=== PATIENT | male | born 1945 | race Caucasian/White ===

== ENCOUNTER → 2017-01-16 | Outpatient (CLI) | payer MEDICARE, OTHER ==
--- NOTE | 2017-01-16 08:34 | CT ---
EXAMINATION TYPE: CT lumbar spine wo con DATE OF EXAM: 01/16/2017 7:17 AM COMPARISON: NONE HISTORY: 71-year-old male with low Back Pain TECHNIQUE: Contiguous axial scanning of the lumbar spine without IV contrast. Coronal and sagittal re constructions performed. CT DLP: 367.7 mGycm Automated exposure control for dose reduction was used. FINDINGS: Vertebral body heights are preserved and alignment is maintained. There is mild disc bulging throughout the lumbar spine At L2-L3, disc bulge contributes to a mild right neuroforaminal stenosis. At L3-L4, disc bulge contributes to a mild right greater than left neuroforaminal stenosis. At L4-L5, disc bulge contributes to a mild right greater than left neural foraminal stenosis. No significant spinal canal stenosis seen at any level. There is diffuse ectasia of the abdominal aorta and iliac arteries. Upper abdominal aorta measures up to 2.6 cm. 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 Just below, the abdominal aorta remains aneurysmal at 3. One centimeters an d ectatic at the distal abdominal aorta are 2.8 cm. Mild aneurysm right common iliac artery at 1.6 cm . Moderate apical scarring calcifications are seen throughout. Bilateral nephrolithiasis measuring 3 mm on the right and up to 5 mm on the left. Hypodense lesions a re present on both sides, measuring up to 2.8 cm right and 1.9 cm on the left, indeterminate on this noncontrast study. Renal ultrasound can further evaluate. Mild diffuse low-density thickening of the left adrenal gland suggests adrenal hyperplasia. IMPRESSION: 1. NO VERTEBRAL COMPRESSION COLLAPSE OR MALALIGNMENT. 2. MULTILEVEL MILD DEGENERATIVE DISC DISEASE WITH DISC BULGING. THIS CONTRIBUTES TO MILD RIGHT GREATE R THAN LEFT NEURAL FORAMINAL STENOSES FROM L2 THROUGH L5 LEVELS. 3. NO CANAL COMPROMISE. 4. 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 MEASUREMENTS AB OVE (AAA MEASURING UP TO 3.6 CM).
== END | disposition home or self-care (01) ==
LOC: RADCTMAIN 06:53
PROVIDERS: ATTEND Family Medicine
DX: M99.73 Connective tissue and disc stenosis of intervertebral foramina of lumbar region (principal); M51.26 Other intervertebral disc displacement, lumbar region; M51.36 Other intervertebral disc degeneration, lumbar region
CPT/HCPCS: 72131

== ENCOUNTER 2017-01-22 16:29 | Inpatient (IN) | payer MEDICARE, MEDICAID ==
[2017-01-22 17:28] LABS: Appearance,Urine Clear (Clear); Bilirubin,Urine Negative (Negative); Glucose,Urine (UA) Negative (Negative); Ketones,Urine Negative (Negative); Leukocyte Esterase,Urine Negative (Negative); Nitrite,Urine Negative (Negative); Protein,Urine Negative (Negative); Specific Gravity,Urine 1.002 (1.001-1.035); UA Billing (MACRO vs. MICRO) CHEM; Urobilinogen,Urine <2.0 mg/dL (<2.0)
--- NOTE | 2017-01-22 18:33 | ED ---
Psych HPI - General Chief Complaint: Psychiatric Symptoms Stated Complaint: Mental Health Time Seen by Provider: 01/22/17 16:52 Source: patient Mode of arrival: ambulatory - History of Present Illness Initial Comments: This is a 71-year-old male who presents emergency department for wanting to kill someone. He states that he's had these thoughts for a long time however there getting out of control. He states he is hearing voices that are telling him to hurt people's. He states he also wants a [place] and throat brick through the back window. He states he does not care that if he gets shot by the police. He states he does not have a history of anything and is not supposed be taking any medications. He states that this is all new. No other complaints. - Related Data Home Medications Medication Instructions Recorded Confirmed Ergocalciferol [Vitamin D2 1 cap PO MO 03/27/14 01/22/17 (DRISDOL)] Nitroglycerin Sl Tabs [Nitrostat] 0.4 mg SUBLINGUAL Q5M PRN 03/27/14 01/22/17 Atorvastatin [Lipitor] 80 mg PO HS 09/20/14 01/22/17 Ezetimibe [Zetia] 10 mg PO DAILY 09/20/14 01/22/17 oxyCODONE-APAP 10-325MG [Percocet 1 tab PO Q4HR PRN 09/20/14 01/22/17 10-325 mg] DULoxetine HCL [Cymbalta] 60 mg PO DAILY 01/22/17 01/22/17 Esomeprazole Magnesium [NexIUM] 40 mg PO DAILY 01/22/17 01/22/17 Ibuprofen [Motrin] 800 mg PO Q8H PRN 01/22/17 01/22/17 Levothyroxine Sodium [Synthroid] 25 mcg PO DAILY 01/22/17 01/22/17 Lisinopril 30 mg PO DAILY 01/22/17 01/22/17 Pregabalin [Lyrica] 75 mg PO BID 01/22/17 01/22/17 QUEtiapine [SEROquel] 25 mg PO HS 01/22/17 01/22/17 valACYclovir HCL [Valtrex] 1,000 mg PO Q8H 01/22/17 01/22/17 Allergies Allergy/AdvReac Type Severity Reaction Status Date / Time cefazolin Allergy Rash/Hives Verified 01/22/17 16:52 cefazolin sodium [From Ancef] Allergy Rash/Hives Verified 01/22/17 16:52 morphine AdvReac Nausea & Verified 01/22/17 16:52 Vomiting Review of Systems ROS Statement: Those systems with pertinent positive or pertinent negative responses have been documented in the HPI. ROS Other: All systems not noted in ROS Statement are negative. Past Medical History Past Medical History: Chest Pain / Angina, Hyperlipidemia, Myocardial Infarction (UT), Osteoarthritis (OA), Skin Disorder Additional Past Medical History / Comment(s): MIX2,MIGRAINES,BENIGN GROWTH RT KIDNEY, RAISED BUMPS FLORA HANDS,SKIN CA Last Myocardial Infarction Date:: AGE 30'S History of Any Multi-Drug Resistant Organisms: None Reported Past Surgical History: Heart Catheterization, Hernia Repair, Orthopedic Surgery Additional Past Surgical History / Comment(s): LAMINECTOMY & PLACEMENT OF NEUROSTIMULATOR, REPOSTION OF NEUROSTIMULATOR HARDWARE Past Anesthesia/Blood Transfusion Reactions: No Reported Reaction Past Psychological History: No Psychological Hx Reported Smoking Status: Current every day smoker Past Alcohol Use History: Occasional Past Drug Use History: Marijuana - Past Family History Father Family Medical History: Cancer Brother(s) Family Medical History: Cancer General Exam - General Exam Comments Initial Comments: Constitutional: Awake alert Appears comfortable Head: Normocephalic atraumatic Eyes: no conjunctival injection No scleral icterus EOMI Neck: No JVD Supple Heart: Regular rate rhythm normal S1-S2 no murmurs Lungs: Clear to auscultation bilaterally No wheezing No rales Abdomen: Soft nondistended nontender Extremities: Non edematous DP pulses intact Radial pulses intact Neuro: A&Ox3 No focal neurologic deficits Psych: Homicidal and intoxicated Limitations: no limitations Course Vital Signs 01/22/17 16:36 Temperature 98.1 F Pulse Rate 65 Respiratory 20 Rate Blood Pressure 176/89 O2 Sat by Pulse 94 L Oximetry Medical Decision Making - Medical Decision Making Patient was evaluated by inpatient psych and they feel that he needs hospitalization. They will sign a minute place admission orders. - Lab Data Lab Results 01/22/17 Range/Units 16:00 Urine Color Colorless Urine Appearance Clear (Clear) Urine pH 6.0 (5.0-8.0) Ur Specific [place] 1.002 (1.001-1.035) Urine Protein Negative (Negative) Urine Glucose (UA) Negative (Negative) Urine Ketones Negative (Negative) Urine Blood Negative (Negative) Urine Nitrate Negative (Negative) Urine Bilirubin Negative (Negative) Urine Urobilinogen <2.0 (<2.0) mg/dL Ur Leukocyte Esterase Negative (Negative) Urine Opiates Screen Not Detected (NotDetected) Ur Oxycodone Screen Detected H (NotDetected) Urine Methadone Screen Not Detected (NotDetected) Ur Propoxyphene Screen Not Detected (NotDetected) Ur Barbiturates Screen Not Detected (NotDetected) U Tricyclic Antidepress Not Detected (NotDetected) Ur Phencyclidine Scrn Not Detected (NotDetected) Ur Amphetamines Screen Not Detected (NotDetected) U Methamphetamines Scrn Not Detected (NotDetected) U Benzodiazepines Scrn Not Detected (NotDetected) Urine Cocaine Screen Not Detected (NotDetected) U Marijuana (THC) Screen Not Detected (NotDetected) Disposition Clinical Impression: Homicidal ideation, Suicidal ideation, Depression Disposition: ADMITTED IP TO THIS HOSP Condition: Stable
[2017-01-22] MEDS ORDERED: LORazepam 1 MG TAB PO STA (19:31)
[2017-01-22] MEDS ORDERED: oxyCODONE-APAP 5-325MG 1 EACH TAB PO STA (19:52)
[2017-01-22] MEDS ORDERED: MAGNESIUM HYDROXIDE 2,400 MG/10 ML CUP PO PRN (22:34)
[2017-01-22] MEDS ORDERED: MAG HYDROX/AL HYDROX/SIMETH 30 ML CUP PO PRN (22:34)
[2017-01-22] MEDS ORDERED: ZIPRASIDONE 20 MG VIAL IM PRN (22:34)
[2017-01-22] MEDS ORDERED: ACETAMINOPHEN TAB 325 MG TAB PO PRN (22:34)
[2017-01-22] MEDS ORDERED: LORazepam 2 MG/ML SYRINGE IM PRN (22:38)
[2017-01-22] MEDS ORDERED: LORazepam 1 MG TAB PO PRN (22:38)
[2017-01-22] MEDS ORDERED: oxyCODONE-APAP 10-325MG 1 EACH TAB PO PRN (22:39)
[2017-01-22] MEDS ORDERED: ONDANSETRON ODT 4 MG TAB PO PRN (22:43)
[2017-01-23 09:09] LABS: Basophils # (A) 0.2 k/uL (0-0.2); Basophils % (A) 1 %; CH 33.7; CHCM 33.6; Eosinophils # (A) 0.2 k/uL (0-0.7); Eosinophils % (A) 2 %; HDW 2.33; HGB 15.5 gm/dL (13.0-17.5); Luc % (Auto) 2; Lymphocytes # (A) 1.5 k/uL (1.0-4.8); Lymphocytes % (A) 14 %; MCH 33.9 pg (25.0-35.0); MCHC 33.7 g/dL (31.0-37.0); MCV 100.8 fL (80.0-100.0); Mean Platelet Volume 7.6; Monocytes # (A) 0.6 k/uL (0-1.0); Monocytes % (A) 5 %; Neutrophils # (A) 8.2 k/uL (1.3-7.7); Neutrophils % (A) 75 %; RBC 4.56 m/uL (4.30-5.90); RDW 12.6 % (11.5-15.5); WBC 10.9 k/uL (3.8-10.6); WBC (Perox) 10.98
[2017-01-23 10:47] LABS: ALT 32 U/L (21-72); AST 38 U/L (17-59); Alkaline Phosphatase 77 U/L (38-126); Anion Gap 15 mmol/L; Blood Urea Nitrogen 10 mg/dL (9-20); Calcium 10.5 mg/dL (8.4-10.2); Carbon Dioxide 24 mmol/L (22-30); Chloride 104 mmol/L (98-107); Glucose 92 mg/dL (74-99); Non-African American GFR(MDRD) >60 (>60 ml/min/1.73 sqM); Potassium 4.3 mmol/L (3.5-5.1); Sodium 143 mmol/L (137-145); Total Bilirubin 0.7 mg/dL (0.2-1.3); Total Protein 7.9 g/dL (6.3-8.2)
[2017-01-23 11:37] LABS: Vitamin B12 334 pg/mL
[2017-01-23] MEDS ORDERED: oxyCODONE-APAP 10-325MG 1 EACH TAB PO PRN (12:39)
[2017-01-23] MEDS ORDERED: NITROGLYCERIN SL TABS 0.4 MG TAB SUBLINGUAL PRN (12:39)
[2017-01-23] MEDS ORDERED: IBUPROFEN 800 MG TAB PO PRN (12:39)
[2017-01-23] MEDS ORDERED: PREGABALIN 75 MG CAP PO SCH (13:00)
[2017-01-23] MEDS ORDERED: LEVOTHYROXINE 25 MCG TAB PO SCH (13:00)
[2017-01-23] MEDS ORDERED: LISINOPRIL 10 MG TAB PO SCH (13:00)
[2017-01-23] MEDS ORDERED: PANTOPRAZOLE 40 MG TABLET PO SCH (13:00)
[2017-01-23] MEDS ORDERED: EZETIMIBE 10 MG TAB PO SCH (13:00)
[2017-01-23 13:14] VITALS: RESP 16
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
[2017-01-23 14:42] VITALS: BP 182/96; PULSE 96; TEMP 97.2; BMI 24.7
--- NOTE | 2017-01-23 16:25 | CONS ---
DATE OF CONSULTATION: 01/23/2017 REASON FOR CONSULTATION: Medical management requested by Dr. Al. CONSULTATION: This is a 71-year-old patient admitted to the psychiatric unit, being followed by Dr. June, by Dr. Al, whose chronic stable medical conditions include myocardial infarction x2, osteoarthritis, hyperlipidemia. He is a smoker. He was admitted after he felt like he was hearing voices to kill people and was then afraid the police shot him. Admitted for the same. REVIEW OF SYSTEMS: CONSTITUTIONAL: None. HEENT: None. RESPIRATORY: Occasionally short of breath. CARDIOVASCULAR: None. GASTROINTESTINAL: None. GENITOURINARY: None. MUSCULOSKELETAL: Aches and pains in the joints. DERMATOLOGIC: None. HEMATOLOGIC: None. LYMPHATICS: None. PSYCHIATRY: As above. NEUROLOGICAL: None. PAST HISTORY: 1. Hyperlipidemia. 2. MS x2. 3. Osteoarthritis. 4. Skin cancer. PAST SURGICAL HISTORY: 1. Cardiac catheterization. 2. Hernia repair. 3. Laminectomy. 4. Placement of neurostimulator and then repositioning of the same. SOCIAL HISTORY: Patient drinks 6 to 7 beers on the weekends. Smokes a pack a day. Used to work in a factory. FAMILY HISTORY: Cancer. HOME MEDICATIONS: 1. Vitamin D2, 50,000 units on Thursday. 2. Percocet 10 one tablet q.4 p.r.n. 3. Seroquel 25 mg at bedtime. 4. Lyrica 75 mg p.o. b.i.d. 5. Nitrostat 0.4 sublingually q.5 p.r.n. 6. Lisinopril 30 mg a day. 7. Synthroid 25 mcg p.o. daily. 8. Motrin 800 mg p.o. q.8 p.r.n. 9. Zetia 10 mg p.o. daily. 10. Nexium 40 mg p.o. daily. 11. Cymbalta 60 mg p.o. daily. 12. Lipitor 80 mg at bedtime. ALLERGIES: 1. CEFAZOLIN. 2. MORPHINE. PHYSICAL EXAMINATION: VITAL SIGNS: Temperature 98.1, pulse 65, respiration 20, blood pressure 176/89, pulse ox 94% on room air. GENERAL APPEARANCE: Thin build. Sitting up, comfortable. EYES: Pupils equal. Conjunctivae normal. HEENT: Oral cavity normal. NECK: JVD not raised. Mass not palpable. RESPIRATORY: Effort normal. LUNGS: Diminished breath sounds. CARDIOVASCULAR: First and second sounds normal. No edema. ABDOMEN: Soft, nontender. Liver and spleen not palpable. LYMPHATIC: No lymph node palpable in neck or axillae. PSYCHIATRY: Awake. Answering simple questions. NEUROLOGICAL: Pupils equal. Cranial nerves grossly intact. Power and sensation grossly intact. INVESTIGATIONS: White count 10.9. Potassium 4.3. BUN and creatinine are normal. ASSESSMENT: 1. Emphysema in a smoker, though symptoms are controlled. 2. Coronary artery disease with prior history of 2 myocardial infarctions. 3. Primary osteoarthritis in multiple joints. 4. Chronic nicotine dependence. Patient is a smoker. PLAN: Home medications are resumed. Psychiatric medications per Dr. Al. Patient advised against smoking, given a nicotine patch. Patient should follow up with Dr. June upon discharge. Thank you, Dr. Al.
[2017-01-23] MEDS ORDERED: ATORVASTATIN 80 MG TAB PO SCH (21:00)
--- NOTE | 2017-01-23 21:43 | DS ---
DATE OF ADMISSION: 01/22/2017 DATE OF DISCHARGE: 01/23/2017 Patient was admitted yesterday, January 22, discharged January 23. Please refer to my history and physical examination dictated today. DISCHARGE DIAGNOSES: 1. Delirium reaction, resolved. 2. Alcohol abuse disorder and dependence. 3. Misusing opium pain medication. 4. History of depression not otherwise specified. 5. Chronic pain syndrome. For brief summary of admission notes, please refer to my history and physical exam. SUMMARY OF THE HOSPITAL COURSE: The patient was admitted on a voluntary basis on January 22 for paranoia, suspicious feelings, delusion and auditory hallucinations. Patient was given Ativan IM. Today when I saw him patient was cleared, denied any auditory or visual hallucinations, denied any paranoia or suspicious feeling. He was alert, very calm; no aggressive behavior; good eye contact. Speech is spontaneous. Thought process is linear. He is reporting no homicidal or suicidal ideation, intent or plan. He does not have access to any firearms. Does not feel hopeless or helpless. No evidence of hypomania or katherin. No evidence of psychosis. Insight and judgment are fair. PLAN: Patient was discharged from the mental health unit to return back home. Patient has to follow up with his primary care physician. Patient has to seek substance abuse treatment for his alcohol use. Patient's condition at the time of the discharge is stable.
== END 2017-01-23 13:55 | disposition home or self-care (01) | DRG 885 ==
LOC: EC 16:29 → 3MHU 21:32
PROVIDERS: ADMIT Psychiatry & Neurology Psychiatry; ATTEND Psychiatry & Neurology Psychiatry
DX: F22 Delusional disorders (principal); R45.851 Suicidal ideations; J43.9 Emphysema, unspecified; F10.20 Alcohol dependence, uncomplicated; G89.4 Chronic pain syndrome; R45.850 Homicidal ideations; I25.2 Old myocardial infarction; R41.0 Disorientation, unspecified; F32.9 Major depressive disorder, single episode, unspecified; R41.89 Other symptoms and signs involving cognitive functions and awareness; I25.10 Atherosclerotic heart disease of native coronary artery without angina pectoris; L98.9 Disorder of the skin and subcutaneous tissue, unspecified; K21.9 Gastro-esophageal reflux disease without esophagitis; E03.9 Hypothyroidism, unspecified; E78.5 Hyperlipidemia, unspecified; G43.909 Migraine, unspecified, not intractable, without status migrainosus; M54.9 Dorsalgia, unspecified; M19.91 Primary osteoarthritis, unspecified site; F17.210 Nicotine dependence, cigarettes, uncomplicated; Z85.828 Personal history of other malignant neoplasm of skin; Z88.1 Allergy status to other antibiotic agents; Z88.5 Allergy status to narcotic agent; Z87.828 Personal history of other (healed) physical injury and trauma; Z79.1 Long term (current) use of non-steroidal anti-inflammatories (NSAID); Z79.891 Long term (current) use of opiate analgesic; Z79.899 Other long term (current) drug therapy; Z71.6 Tobacco abuse counseling; Z71.51 Drug abuse counseling and surveillance of drug abuser; Z81.1 Family history of alcohol abuse and dependence; Z80.9 Family history of malignant neoplasm, unspecified
CPT/HCPCS: 80053; 80306; 81003; 82075; 82607; 84443; 85025; 93005; 99285

== ENCOUNTER → 2017-04-21 | Outpatient (CLI) | payer MEDICARE, OTHER ==
[2017-04-16 14:04] VITALS: BMI 25.1
[2017-04-21 12:49] VITALS: BP 163/70; PULSE 69; RESP 18; TEMP 98.2
--- NOTE | 2017-04-21 13:32 | P.CONS ---
History of Present Illness - Reason for Consult Consult date: 04/21/17 - History of Present Illness This is the initial consultation visit for this 62 years old male the chronic history of severe low back pain with radiation to the lower extremity bilaterally, associated with numbness and tingling sensation, patient and the spinal cord stimulator implanted more than 5 years ago, and this helped his pain significantly, he did fairly well until he had traumatic injury to his low back pain which was in 2013, and then his spinal cord stimulator stopped working , and required him to have it removed, patient continued to have severe low back pain, and it was managed with the pain medication orally, he is currently on Percocet 10/325 every 4 hours when necessary, Motrin 800 mg every 8 hours when necessary, Cymbalta 60 mg daily, he denies any side effect of the medication he denies any excessive drowsiness or sleepiness, he denies any motor or sensory deficit, and his pain increased with any activities, he has no fever or night sweats, intensity of the pain is 7-9/10, Past Medical History Past Medical History: Cancer, Chest Pain / Angina, Hyperlipidemia, Myocardial Infarction (SD), Osteoarthritis (OA), Skin Disorder Additional Past Medical History / Comment(s): SD X2,MIGRAINES,BENIGN GROWTH RT KIDNEY, RAISED BUMPS FLORA HANDS,SKIN CA, pain lower spine and both legs Last Myocardial Infarction Date:: AGE 30'S History of Any Multi-Drug Resistant Organisms: None Reported Past Surgical History: Heart Catheterization, Hernia Repair, Orthopedic Surgery Additional Past Surgical History / Comment(s): LAMINECTOMY & PLACEMENT OF NEUROSTIMULATOR, REPOSTION OF NEUROSTIMULATOR HARDWARE Past Anesthesia/Blood Transfusion Reactions: No Reported Reaction Past Psychological History: Anxiety, Depression Smoking Status: Current every day smoker Past Alcohol Use History: Occasional Additional Past Alcohol Use History / Comment(s): smoker 60+ years 1 ppd. marijuana use "couple tokes/wk" Past Drug Use History: Marijuana - Past Family History Father Family Medical History: Cancer Brother(s) Family Medical History: Cancer Medications and Allergies Home Medications Medication Instructions Recorded Confirmed Type Ergocalciferol [Vitamin D2 50,000 unit PO MO 03/27/14 04/21/17 History (DRISDOL)] Nitroglycerin Sl Tabs [Nitrostat] 0.4 mg SUBLINGUAL Q5M PRN 03/27/14 04/21/17 History Atorvastatin [Lipitor] 80 mg PO HS 09/20/14 04/21/17 History Ezetimibe [Zetia] 10 mg PO DAILY 09/20/14 04/21/17 History oxyCODONE-APAP 10-325MG [Percocet 1 tab PO Q4HR PRN 09/20/14 04/21/17 History 10-325 mg] DULoxetine HCL [Cymbalta] 60 mg PO DAILY 01/22/17 04/21/17 History Esomeprazole Magnesium [NexIUM] 40 mg PO DAILY 01/22/17 04/21/17 History Ibuprofen [Motrin] 800 mg PO Q8H PRN 01/22/17 04/21/17 History Levothyroxine Sodium [Synthroid] 25 mcg PO DAILY 01/22/17 04/21/17 History Lisinopril 30 mg PO DAILY 01/22/17 04/21/17 History QUEtiapine [SEROquel] 25 mg PO HS 01/22/17 04/21/17 History Allergies Allergy/AdvReac Type Severity Reaction Status Date / Time cefazolin Allergy Rash/Hives Verified 04/21/17 12:39 cefazolin sodium [From Ancef] Allergy Rash/Hives Verified 04/21/17 12:39 morphine AdvReac Nausea & Verified 04/21/17 12:39 Vomiting Physical Exam Vitals: Vital Signs Temp Pulse Resp BP Pulse Ox 04/21/17 12:41 98.2 F 69 18 163/70 97 Social history : smoker , NO ETOH , NO Illegal drugs use Review of Systems : 1- Constitutional : no chills , no fever , no night sweats , 2- Ears : no ear discharge , no change in hearing 3-Nose, Mouth ,Throat ; no bleeding gums, no sore throat , no epistaxis , 4-Cardiovascular : Denies chest pain, , no orthopnea , no palpitation 5-Respiratory : Denies cough , no dyspnea , no hemoptysis 6-Gastrointestinal :, no change in bowel habits , no coffee- ground emesis . 7-Genitourinary : No hematuria , no discharge , no incontinence, 8-Musculoskeletal : No gait dysfunction , report low back pain , 9- Neurological : no ataxia , no tremor , no sezure , 10-Psychatric , no suicidal ideation no hallucination 11- Endocrine : no cold intolerence , no polyuria , no polydypsia , 12-Hematologic : no easy bleeding , no easy brusing , 13-Allergic / immunology : no angioedema , no wheezing ,no allergic rhinitis 14-Integumentary : no brttle nails , no change hair / nails , no foot/leg ulcers . Physical Examinations : 1-Constitutional : Cooperative , not in acute distress . 2-HEENT : nech ; supple , no Lymphadenopathy , no Thyromegaly , :eyes , no icterus, no photophobia . ENT : , normal oropharynx , no Thrush 3- Respiratory : Chest clear to auscultations Bilaterally , no wheezing . 4- Cardiovascular : regular rate and rhythem , S1 , S2 , no S3 , no S4. 5- Gastrointestinal: abdomen soft no tenderness , no organomegally . 6- Genitourinary : Defferred . 7-Integumentary : No cellulitis , no ulcers , normal skin turgor , no cyanotic . 8- neurologic : Cranial nerve II to XII intact , no focal neurological deffecit 9-psychatric : alert , oriented X 3 , appropriate affect , intact judgment and insight . 10-Lymphatic : no Lymphadenopathy. 11- musculoskeltal: Antalgic gait Lumber spine moter stegnth lower extremities ,thigh and legs 5/5 Right side , 5/5 Left side deep tendon reflexes : normal Knee Jerk , normal ankle Jerk positive lumber facet Loading Test Range of motion of the lumbar spine Flexion 30 degrees, extension 10 degrees strait leg raising test , positive at degree Fabere test positive RT and positive LT . Sever tenderness over the Sacroiliac joint on the R and L sides Thoracic spine= scar in the middle of his thoracic spine ( healed well ) positive facet loading test thoracic area Results Comments: Computed tomography scan of the lumbar spine done 01/16/2017= L2 3 disc bulging and right neuroforaminal stenosis, L3 4 disc bulging with bilateral neuroforaminal stenosis, L4 5 disc bulging and bilateral neuroforaminal stenosis Assessment and Plan Plan: Assessment and plan = -Lumbar radiculopathy , lumbar bulging disc disease and lumbar spinal stenosis -Midback pain secondary to thoracic spondylosis ( clinically ) - diagnoses, prognosis, and treatment options including but not limited to physical therapy, surgical interventions, interventional therapies and medication management including narcotics and adjuvant medication were discussed with the patient and all questions answered to the patient's satisfaction. -medication refile = patient getting prescription refill for Motrin 800 mg every 8 hours,and Percocet 10/320 far from his primary care, and he would continue the same medication and denies any side effects of the medication, patient could benefit from Lyrica 25 mg 3 times a day -procedure= patient could benefit from lumbar epidural steroid injections, procedure risk and benefits and alternatives discussed with the patient and he agreed with the procedure Time with Patient: Greater than 30
== END | disposition home or self-care (01) ==
LOC: PNWHC3 12:19
PROVIDERS: ATTEND Specialist
DX: M48.06 Spinal stenosis, lumbar region (principal); M51.16 Intervertebral disc disorders with radiculopathy, lumbar region; M47.814 Spondylosis without myelopathy or radiculopathy, thoracic region; E78.5 Hyperlipidemia, unspecified; I25.2 Old myocardial infarction; M19.90 Unspecified osteoarthritis, unspecified site; F17.200 Nicotine dependence, unspecified, uncomplicated; Z88.1 Allergy status to other antibiotic agents; Z88.5 Allergy status to narcotic agent; Z79.899 Other long term (current) drug therapy
CPT/HCPCS: 99211

== ENCOUNTER 2017-04-29 09:50 | Day surgery (SDC) | payer MEDICARE, OTHER ==
[2017-04-27 14:26] VITALS: BMI 25.1
[~2017-04-29 09:50] MED LIST: LACTATED RINGERS 1,000 ML IV SCH
[2017-04-29] MEDS ORDERED: LIDOCAINE 1% 20 ML VIAL (10MG/ML) FOR IV START INTRADERMA ONE (11:00)
[2017-04-29 11:01] VITALS: RESP 16; TEMP 97.6
[2017-04-29] MEDS ORDERED: DEXAMETHASONE SOD PHOS (MDV) 100 MG/10 ML VIAL ONE (11:07)
[2017-04-29] MEDS ORDERED: IOHEXOL 180 MG/ML 1 ML ML ONE (11:07)
[2017-04-29] MEDS ORDERED: MIDAZOLAM 2 MG/2 ML VIAL ONE (11:07)
[2017-04-29] MEDS ORDERED: fentaNYL (PF) 50 MCG/ML 2 ML AMP ONE (11:07)
--- NOTE | 2017-04-29 11:29 | P.PCN ---
Date of Procedure: 04/29/17 Preoperative Diagnosis: Postoperative Diagnosis: Procedure(s) Performed: PREOPERATIVE DIAGNOSIS: 1- Lumbar Degenerative Disc Diseases 2-Lumbar radiculopathy 3- Lumbar spinal stenosis. POSTOPERATIVE DIAGNOSIS: same as Pre op daignosis. PROCEDURE 1. Lumbar epidural steroid injection under fluoroscopic guidance at the L4-5 level. 2. Lumbar epidurogram. ANESTHESIA: Local with 1% lidocaine 3 ml and IV sedation with Versed 2 mg , and fentanyle 100 Mcg EBL: Minimal PROCEDURE INDICATION: The patient with low back pain and radiculitis symptoms unresponsive to conservative treatment. Fluoroscopy was used to optimize visualization of the needle placement and to maximize safety. PROCEDURE DESCRIPTION / TECHNIQUE: The patient was seen and identified in the preoperative area. Risks, benefits , complications including but not limited to infections ,bleeding ,allergic reaction to the medications ,nerve damage and not complete pain releife , and alternatives were discussed with the patient. The patient agreed to proceed with the procedure and signed the consent. IV was started, and vital signs were stable. Patient was taken to the OR and time out was completed. The patient was placed in the prone position on procedure table and a pillow was placed under the abdomen to reduce lumbar lordosis. The lumbosacral area was prepped and draped in the usual sterile fashion.ere closely monitored during the procedure. Conscious sedation was used during the procedure to decrease patients anxiety. Vital signs was monitered during the entire procedure. Using anterior-posterior fluoroscopy, the L4-5 interlaminar space was identified and the skin over this site was marked and then infiltrated with 1% lidocaine subcutaneously. Subsequently, a 20-gauge Tuohy epidural needle was inserted and advanced toward the epidural space using the ``Loss of resistance technique and guided by AP and lateral fluoroscopy. The correct needle position in the epidural space was verified with the injection of 2 mL of the water soluble contrast dye Omnipaque 180 contrast and observing an excellent epidurogram with the epidural spread of the dye, after negative aspiration for blood and CSF and in the absence of paresthesias. Again after negative aspiration, a 6 ml mixture containing 20 mg of Dexamethasone and 2 ml of preservative free Normal Saline, and 2 ml of preservative free lidocaine 1% solution was injected and a washout of epidurogram was seen. Needle was withdrawn intact, skin was cleansed, and bandages were applied. COMPLICATIONS: None DISPOSITION / PLANS: The patient was placed in a supine position and transferred to the recovery area in a stable condition for observation. There was no evidence of lower extremity motor or sensory deficit after the procedure. Patient was discharged from the recovery room after meeting discharge criteria. Home discharge instructions were given to the patient by the staff. The patient was reexamined prior to discharge. The patient will schedule a follow up in the clinic in 2-4 weeks. Implants: Indications for Procedure: Operative Findings: Description of Procedure:
[2017-04-29] MEDS ORDERED: IV FLUID CONTINUATION 1,000 ML IV ONE (11:33)
[2017-04-29 11:50] VITALS: BP 184/84; PULSE 60
--- NOTE | 2017-04-29 11:54 | FL ---
EXAMINATION TYPE: FL guided pain mgmt statistic DATE OF EXAM: 04/29/2017 HISTORY: Pain 1sec fluoro time, 1 image scanned.
== END 2017-04-29 12:03 | disposition home or self-care (01) ==
LOC: ORPAIN 09:50
PROVIDERS: ATTEND Specialist
DX: M51.16 Intervertebral disc disorders with radiculopathy, lumbar region (principal); M48.06 Spinal stenosis, lumbar region; M47.814 Spondylosis without myelopathy or radiculopathy, thoracic region; E78.5 Hyperlipidemia, unspecified; M19.90 Unspecified osteoarthritis, unspecified site; F41.9 Anxiety disorder, unspecified; F32.9 Major depressive disorder, single episode, unspecified; I25.2 Old myocardial infarction; F17.200 Nicotine dependence, unspecified, uncomplicated; Z88.1 Allergy status to other antibiotic agents; Z88.5 Allergy status to narcotic agent; Z79.899 Other long term (current) drug therapy; Z85.828 Personal history of other malignant neoplasm of skin; Z80.9 Family history of malignant neoplasm, unspecified
CPT/HCPCS: 62323; 99152; J2250; Q9965; J3010; J1100

== ENCOUNTER 2017-06-03 06:08 | Day surgery (SDC) | payer MEDICARE, OTHER ==
[2017-05-29 13:05] VITALS: BMI 25.1
[2017-06-03 07:22] VITALS: TEMP 98
[2017-06-03] MEDS ORDERED: LACTATED RINGERS 1,000 ML IV ONE (07:33)
[2017-06-03] MEDS ORDERED: LIDOCAINE 1% 20 ML VIAL (10MG/ML) FOR IV START INTRADERMA ONE (07:33)
[2017-06-03] MEDS ORDERED: LACTATED RINGERS 1,000 ML IV SCH (07:45)
--- NOTE | 2017-06-03 08:03 | P.PCN ---
Date of Procedure: 06/03/17 Preoperative Diagnosis: Postoperative Diagnosis: Procedure(s) Performed: Implants: Surgeon: Shyam Ayala Pathology: none sent Condition: stable Disposition: PACU Indications for Procedure: Operative Findings: Description of Procedure: PREOPERATIVE DIAGNOSIS: 1-Lumbar radiculitis. POSTOPERATIVE DIAGNOSIS: 1-Lumbar radiculitis. PROCEDURE 1. Lumbar epidural steroid injection under fluoroscopic guidance at the L4-L5 level. 2. Lumbar epidurogram. ANESTHESIA: Local with 1% lidocaine; IV sedation with Versed/fentanyl. EBL: Minimal PROCEDURE INDICATION: The patient with low back pain and radiculitis symptoms unresponsive to conservative treatment. Fluoroscopy was used to optimize visualization of the needle placement and to maximize safety. Excellent relief from first LESI (still has some relief from that procedure). No use of blood thinners. PROCEDURE DESCRIPTION / TECHNIQUE: The patient was seen and identified in the preoperative area. Risks, benefits, complications, and alternatives were discussed with the patient, including but not limited to bleeding, infection, nerve damage, allergic reactions to medications, and incomplete pain relief. The patient agreed to proceed with the procedure and signed the consent after all questions were answered. IV was started, and vital signs were stable. Patient was taken to the OR and time out was completed to confirm patient position, procedure, laterality of pain, and allergies. The patient was placed in the prone position on procedure table and a pillow was placed under the abdomen to reduce lumbar lordosis. The lumbosacral area was prepped and draped in the usual sterile fashion. Critical pause was taken. Vital signs were closely monitored during the procedure. Conscious sedation was used during the procedure to decrease patients anxiety. Using anterior-posterior fluoroscopy, the L4-L5 interlaminar space was identified and the skin over this site was marked and then infiltrated with 1% lidocaine subcutaneously in a right paramedian fashion. Subsequently, a 20- gauge 3.5-inch Tuohy epidural needle was inserted and advanced toward the epidural space using the Loss of resistance technique and guided by AP and lateral fluoroscopy. The correct needle position in the epidural space was verified with the injection of 2 mL of the water soluble contrast dye Omnipaque 300 contrast and observing an excellent epidurogram with the epidural spread of the dye, after negative aspiration for blood and CSF and in the absence of paresthesias. Again after negative aspiration, a 8 ml mixture containing 20 mg of PF Decadron and 5 ml of preservative free Normal Saline, and 2 ml of preservative free lidocaine 1% solution was injected and a washout of epidurogram was seen. Needle was withdrawn intact, skin was cleansed, and bandages were applied. COMPLICATIONS: None COMMENTS: DISPOSITION / PLANS: The patient was placed in a supine position and transferred to the recovery area in a stable condition for observation. There was no evidence of lower extremity motor or sensory deficit after the procedure. Patient was discharged from the recovery room after meeting discharge criteria. Home discharge instructions were given to the patient by the staff. The patient was reexamined prior to discharge and there were no issues. The patient will schedule a follow up in the clinic in 2-4 weeks.
[2017-06-03 08:18] VITALS: RESP 18
--- NOTE | 2017-06-03 08:50 | FL ---
EXAMINATION TYPE: FL guided pain mgmt statistic DATE OF EXAM: 06/03/2017 FLUOROSCOPY Fluoroscopy time of 5 seconds was used during lumbar epidural steroid injection. 3 image/s document/ s the procedure.
[2017-06-03] MEDS ORDERED: IV FLUID CONTINUATION 1,000 ML IV ONE (08:52)
[2017-06-03 08:58] VITALS: BP 160/88; PULSE 60
== END 2017-06-03 08:55 | disposition home or self-care (01) ==
LOC: ORPAIN 06:08
PROVIDERS: ATTEND Anesthesiology
DX: M54.16 Radiculopathy, lumbar region (principal); I10 Essential (primary) hypertension; E78.5 Hyperlipidemia, unspecified; K21.9 Gastro-esophageal reflux disease without esophagitis; Z79.891 Long term (current) use of opiate analgesic; Z79.899 Other long term (current) drug therapy; Z88.1 Allergy status to other antibiotic agents; Z88.5 Allergy status to narcotic agent
CPT/HCPCS: 62323; J2250; J1100; Q9965; J3010

== ENCOUNTER 2017-07-06 05:00 | Emergency (ER) | payer MEDICARE, OTHER ==
[2017-07-06 05:56] LABS: Basophils # (A) 0.1 k/uL (0-0.2); Basophils % (A) 1 %; CH 35.3; CHCM 35.2; Eosinophils # (A) 0.4 k/uL (0-0.7); Eosinophils % (A) 6 %; HCT 40.1 % (39.0-53.0); HDW 2.26; HGB 13.6 gm/dL (13.0-17.5); Luc # (Auto) 0.12; Luc % (Auto) 2; Lymphocytes # (A) 1.4 k/uL (1.0-4.8); Lymphocytes % (A) 21 %; MCH 34.3 pg (25.0-35.0); MCV 100.8 fL (80.0-100.0); Mean Platelet Volume 7.9; Monocytes # (A) 0.5 k/uL (0-1.0); Monocytes % (A) 8 %; Neutrophils % (A) 62 %; RBC 3.98 m/uL (4.30-5.90); RDW 13.2 % (11.5-15.5); WBC 6.5 k/uL (3.8-10.6)
[2017-07-06 06:08] LABS: ALT 35 U/L (21-72); AST 57 U/L (17-59); Alkaline Phosphatase 42 U/L (38-126); Amylase 65 U/L (30-110); Anion Gap 11 mmol/L; Blood Urea Nitrogen 7 mg/dL (9-20); Calcium 8.7 mg/dL (8.4-10.2); Carbon Dioxide 18 mmol/L (22-30); Chloride 103 mmol/L (98-107); Glucose 82 mg/dL (74-99); Magnesium 1.4 mg/dL (1.6-2.3); Non-African American GFR(MDRD) >60 (>60 ml/min/1.73 sqM); Sodium 132 mmol/L (137-145); Total Bilirubin 0.6 mg/dL (0.2-1.3); Total Protein 6.2 g/dL (6.3-8.2)
[2017-07-06 06:09] LABS: Partial Thromboplastin Time 23.9 sec (22.0-30.0)
[2017-07-06 06:10] LABS: Potassium 4.5 mmol/L (3.5-5.1)
[2017-07-06 06:31] LABS: Troponin I 0.017 ng/mL (0.000-0.034)
[2017-07-06 06:32] LABS: Creatine Kinase MB 8.6 ng/mL (0.0-2.4)
--- NOTE | 2017-07-06 06:36 | XR ---
EXAM: XR Chest, 2 Views CLINICAL HISTORY: Chest pain TECHNIQUE: Frontal and lateral views of the chest. COMPARISON: 11/08/2014 FINDINGS: Lungs: Bibasilar atelectasis and/infiltrates are noted. Background of emphysematous changes again not excluded. Pleural space: Unremarkable. No pneumothorax. Heart: Unremarkable. No cardiomegaly. Mediastinum: Unremarkable. Bones/joints: Unremarkable. IMPRESSION: Bibasilar atelectasis and/infiltrates. Clinical correlation recommended.
--- NOTE | 2017-07-06 07:29 | ED ---
Back Pain HPI - General Chief Complaint: Back Pain/Injury Stated Complaint: chest pain Time Seen by Provider: 07/06/17 05:15 Source: EMS Limitations: no limitations - History of Present Illness Initial Comments: This patient is a 71-year-old man who presents to be evaluated for left sided back pain. When asked to point he indicates the left latissimus muscle at the posterior axillary line. He indicates the pain is aching, moderate but becomes severe when he presses on it. The pain is also worse if he moves his left arm. He has not noted any relieving factors. There were no associated symptoms. He does not recall a specific trauma but indicates it may have come on after turning. MD Complaint: back pain, back injury -: hour(s) Similar Symptoms Previously: No Place: home Radiation: none Severity: severe Quality: aching Consistency: constant Improves With: none Worsens With: movement Context: turning/twisting Associated Symptoms: denies other symptoms - Related Data Home Medications Medication Instructions Recorded Confirmed Nitroglycerin Sl Tabs [Nitrostat] 0.4 mg SUBLINGUAL Q5M PRN 03/27/14 07/06/17 Atorvastatin [Lipitor] 80 mg PO HS 09/20/14 07/06/17 Ezetimibe [Zetia] 10 mg PO DAILY 09/20/14 07/06/17 DULoxetine HCL [Cymbalta] 60 mg PO DAILY 01/22/17 07/06/17 Esomeprazole Magnesium [NexIUM] 40 mg PO DAILY 01/22/17 07/06/17 Levothyroxine Sodium [Synthroid] 25 mcg PO DAILY 01/22/17 07/06/17 Lisinopril 30 mg PO DAILY 01/22/17 07/06/17 Loratadine [Claritin] 10 mg PO DAILY 07/06/17 07/06/17 valACYclovir [Valtrex] 500 mg PO DAILY PRN 07/06/17 07/06/17 Allergies Allergy/AdvReac Type Severity Reaction Status Date / Time cefazolin Allergy Rash/Hives Verified 07/06/17 10:23 cefazolin sodium [From Ancef] Allergy Rash/Hives Verified 07/06/17 10:23 morphine AdvReac Nausea & Verified 07/06/17 10:23 Vomiting Review of Systems ROS Statement: Those systems with pertinent positive or pertinent negative responses have been documented in the HPI. ROS Other: All systems not noted in ROS Statement are negative. Constitutional: Denies: fever, chills, weakness Respiratory: Denies: cough, dyspnea Cardiovascular: Denies: chest pain, palpitations, dyspnea on exertion, syncope Gastrointestinal: Denies: abdominal pain, nausea, vomiting Genitourinary: Denies: dysuria Musculoskeletal: Reports: back pain Skin: Denies: rash Neurological: Denies: headache, weakness, numbness Past Medical History Past Medical History: Cancer, Chest Pain / Angina, Hyperlipidemia, Myocardial Infarction (CO), Osteoarthritis (OA) Additional Past Medical History / Comment(s): CO X2,MIGRAINES,BENIGN GROWTH RT KIDNEY, SKIN CA, pain lower spine and both legs Last Myocardial Infarction Date:: AGE 30'S History of Any Multi-Drug Resistant Organisms: None Reported Past Surgical History: Heart Catheterization, Hernia Repair, Orthopedic Surgery Additional Past Surgical History / Comment(s): LAMINECTOMY & PLACEMENT OF NEUROSTIMULATOR, REPOSITION OF NEUROSTIMULATOR HARDWARE- NEUROSTIMULATOR REMOVED Past Anesthesia/Blood Transfusion Reactions: No Reported Reaction Past Psychological History: Anxiety, Depression Smoking Status: Current every day smoker Past Alcohol Use History: Occasional Past Drug Use History: None Reported - Past Family History Father Family Medical History: Cancer Brother(s) Family Medical History: Cancer General Exam Limitations: no limitations General appearance: alert, in no apparent distress Head exam: Present: atraumatic, normocephalic Eye exam: Present: normal appearance. Absent: scleral icterus, conjunctival injection Neck exam: Present: normal inspection, full ROM Respiratory exam: Present: normal lung sounds bilaterally. Absent: respiratory distress, wheezes, rales, rhonchi, stridor Cardiovascular Exam: Present: regular rate, normal rhythm, normal heart sounds. Absent: systolic murmur, diastolic murmur, rubs, gallop GI/Abdominal exam: Present: soft. Absent: tenderness, guarding, rebound Extremities exam: Present: normal inspection, normal capillary refill. Absent: pedal edema, calf tenderness Back exam: Present: normal inspection, tenderness (There is tenderness to palpation of the left latissimus muscle. This does reproduce the patient's pain. No physical signs suggestive of infection.). Absent: CVA tenderness (R) , CVA tenderness (L) Neurological exam: Present: alert. Absent: motor sensory deficit Skin exam: Present: warm, dry, intact, normal color. Absent: rash Course Vital Signs 07/06/17 07/06/17 07/06/17 05:01 06:24 07:50 Temperature 98.2 F 98.2 F 97.5 F L Pulse Rate 71 54 L 57 L Respiratory 20 20 20 Rate Blood Pressure 126/66 163/82 160/76 O2 Sat by Pulse 94 L 97 97 Oximetry 07/06/17 08:23 Temperature 97.5 F L Pulse Rate 65 Respiratory 18 Rate Blood Pressure 160/76 O2 Sat by Pulse 98 Oximetry Medical Decision Making - Medical Decision Making After thorough discussion of the indications, the risks and benefits of performing CT angiogram, patient declines. He states he'll return should he develop any destiny chest pain, dyspnea, cough or other chest symptoms. The patient deftly has marked tenderness of the left latissimus dorsi along the posterior axillary line. - Lab Data Result diagrams: 07/06/17 05:40 07/06/17 05:40 Lab Results 07/06/17 07/06/17 07/06/17 Range/Units 05:40 05:40 05:40 WBC 6.5 (3.8-10.6) k/uL RBC 3.98 L (4.30-5.90) m/uL Hgb 13.6 (13.0-17.5) gm/dL Hct 40.1 (39.0-53.0) % MCV 100.8 H (80.0-100.0) fL MCH 34.3 (25.0-35.0) pg MCHC 34.0 (31.0-37.0) g/dL RDW 13.2 (11.5-15.5) % Plt Count 228 (150-450) k/uL Neutrophils % 62 % Lymphocytes % 21 % Monocytes % 8 % Eosinophils % 6 % Basophils % 1 % Neutrophils # 4.0 (1.3-7.7) k/uL Lymphocytes # 1.4 (1.0-4.8) k/uL Monocytes # 0.5 (0-1.0) k/uL Eosinophils # 0.4 (0-0.7) k/uL Basophils # 0.1 (0-0.2) k/uL PT (9.0-12.0) sec INR (<1.2) APTT (22.0-30.0) sec D-Dimer (<0.60) mg/L FEU Sodium 132 L (137-145) mmol/L Potassium 4.5 (3.5-5.1) mmol/L Chloride 103 (98-107) mmol/L Carbon Dioxide 18 L (22-30) mmol/L Anion Gap 11 mmol/L BUN 7 L (9-20) mg/dL Creatinine 0.60 L (0.66-1.25) mg/dL Est GFR (MDRD) Af Amer >60 (>60 ml/min/1.73 sqM) Est GFR (MDRD) Non-Af >60 (>60 ml/min/1.73 sqM) Glucose 82 (74-99) mg/dL Calcium 8.7 (8.4-10.2) mg/dL Magnesium 1.4 L (1.6-2.3) mg/dL Total Bilirubin 0.6 (0.2-1.3) mg/dL AST 57 (17-59) U/L ALT 35 (21-72) U/L Alkaline Phosphatase 42 (38-126) U/L Total Creatine Kinase 759 H (55-170) U/L CK-MB (CK-2) 8.6 H* (0.0-2.4) ng/mL CK-MB (CK-2) Rel Index 1.1 Troponin I 0.017 (0.000-0.034) ng/mL Total Protein 6.2 L (6.3-8.2) g/dL Albumin 3.7 (3.5-5.0) g/dL Amylase 65 (30-110) U/L Lipase 151 (23-300) U/L 07/06/17 Range/Units 05:40 WBC (3.8-10.6) k/uL RBC (4.30-5.90) m/uL Hgb (13.0-17.5) gm/dL Hct (39.0-53.0) % MCV (80.0-100.0) fL MCH (25.0-35.0) pg MCHC (31.0-37.0) g/dL RDW (11.5-15.5) % Plt Count (150-450) k/uL Neutrophils % % Lymphocytes % % Monocytes % % Eosinophils % % Basophils % % Neutrophils # (1.3-7.7) k/uL Lymphocytes # (1.0-4.8) k/uL Monocytes # (0-1.0) k/uL Eosinophils # (0-0.7) k/uL Basophils # (0-0.2) k/uL PT 10.0 (9.0-12.0) sec INR 1.0 (<1.2) APTT 23.9 (22.0-30.0) sec D-Dimer 0.78 H (<0.60) mg/L FEU Sodium (137-145) mmol/L Potassium (3.5-5.1) mmol/L Chloride (98-107) mmol/L Carbon Dioxide (22-30) mmol/L Anion Gap mmol/L BUN (9-20) mg/dL Creatinine (0.66-1.25) mg/dL Est GFR (MDRD) Af Amer (>60 ml/min/1.73 sqM) Est GFR (MDRD) Non-Af (>60 ml/min/1.73 sqM) Glucose (74-99) mg/dL Calcium (8.4-10.2) mg/dL Magnesium (1.6-2.3) mg/dL Total Bilirubin (0.2-1.3) mg/dL AST (17-59) U/L ALT (21-72) U/L Alkaline Phosphatase (38-126) U/L Total Creatine Kinase (55-170) U/L CK-MB (CK-2) (0.0-2.4) ng/mL CK-MB (CK-2) Rel Index Troponin I (0.000-0.034) ng/mL Total Protein (6.3-8.2) g/dL Albumin (3.5-5.0) g/dL Amylase (30-110) U/L Lipase (23-300) U/L - EKG Data -: EKG Interpreted by Co EKG shows normal: sinus rhythm, axis (Normal), intervals (AR interval is 244 ms , consistent with first-degree AV block), QRS complexes (Old septal infarct.), ST-T waves (Normal) Disposition Clinical Impression: Muscle strain Disposition: HOME SELF-CARE Condition: Fair Instructions: Muscle Strain (ED) Referrals: Mario June DO [Primary Care Provider] - 1-2 days
[2017-07-06 07:51] VITALS: BP 160/76; TEMP 97.5
[2017-07-06] MEDS ORDERED: RX INFO: IV CONTRAST WAS GIVEN 1 EACH MISC MISCELLANE PRN (08:01)
[2017-07-06 08:26] VITALS: PULSE 65; RESP 18
== END 2017-07-06 08:23 | disposition home or self-care (01) ==
LOC: EC 05:00
DX: S29.012A Strain of muscle and tendon of back wall of thorax, initial encounter (principal); E78.5 Hyperlipidemia, unspecified; E07.9 Disorder of thyroid, unspecified; F32.9 Major depressive disorder, single episode, unspecified; F41.9 Anxiety disorder, unspecified; I25.2 Old myocardial infarction; F17.200 Nicotine dependence, unspecified, uncomplicated; Z85.828 Personal history of other malignant neoplasm of skin; Z98.890 Other specified postprocedural states; Z79.899 Other long term (current) drug therapy; Z88.1 Allergy status to other antibiotic agents; Z88.5 Allergy status to narcotic agent; X50.1XXA Overexertion from prolonged static or awkward postures, initial encounter
CPT/HCPCS: 36415; 71020; 80053; 82150; 82550; 82553; 83690; 83735; 84484; 85025; 85379; 85610; 85730; 93005; 99284

== ENCOUNTER → 2017-07-06 | Outpatient (CLI) | payer MEDICARE, OTHER ==
[2017-07-06 10:31] VITALS: BP 153/86; PULSE 77; RESP 16; TEMP 99.1
--- NOTE | 2017-07-06 10:46 | P.PN ---
Progress Note - Text This 71-year-old gentleman with lower back pain with radiation to both lower extremities to the feet with numbness in the feet. 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 He did have good response to lumbar epidural steroid injection previously and to Lyrica 25 mg 3 times a day. However the patient started to have suicidal thoughts and he had to stop using Lyrica even though it was giving him excellent relief of his pain. The patient tried the Neurontin before with no good response. The patient fell on his left side recently and went to the ER this morning and he had few x-rays which showed no fractures were he does feel tenderness and pain in the left side of his chest wall . The patient used to have a spinal cord stimulator which was taken out a few years after placement for lack of effect at that point. Neuro exam of the lower extremities showed normal and symmetrical deep tendon reflexes. Decreased muscle strength to 4 out of 5 for knee flexion and extension hip flexion and hip adduction and abduction however his ankle flexion and extension strength is 5 out of 5 bilaterally and symmetrically . Straight leg raising test negative bilaterally. this point and since the patient had significant relief of his pain after the previous lumbar epidural steroid injection I will schedule him to have the third lumbar epidural steroid injection in this series. Patient is to continue using Percocet that he gets from his primary care physician.
== END | disposition home or self-care (01) ==
LOC: PNWHC3 10:09
PROVIDERS: ATTEND Anesthesiology
DX: M99.73 Connective tissue and disc stenosis of intervertebral foramina of lumbar region (principal); M51.26 Other intervertebral disc displacement, lumbar region; M51.27 Other intervertebral disc displacement, lumbosacral region
CPT/HCPCS: 99211

== ENCOUNTER 2017-07-16 12:20 | Day surgery (SDC) | payer MEDICARE, OTHER ==
[2017-07-15 14:49] VITALS: BMI 23.6
[~2017-07-16 12:20] MED LIST changes: +LIDOCAINE 1% 20 ML VIAL (10MG/ML) FOR IV START INTRADERMA PRN
[2017-07-16 12:55] VITALS: TEMP 98
[2017-07-16] MEDS ORDERED: fentaNYL (PF) 50 MCG/ML 2 ML AMP IV ONE (12:55)
[2017-07-16] MEDS ORDERED: PROPOFOL 10 MG/ML 20 ML VIAL IV ONE (14:00)
[2017-07-16] MEDS ORDERED: LIDOCAINE 1% INJ 10MG/ML (20 ML MDV) ONE (14:00)
--- NOTE | 2017-07-16 14:55 | P.PCN ---
Date of Procedure: 07/16/17 Preoperative Diagnosis: Postoperative Diagnosis: Procedure(s) Performed: Procedures: 1. Esophagogastroduodenoscopy and biopsy. 2. Colonoscopy and biopsy. Preoperative diagnosis: Abdominal pain and diarrhea. Postoperative diagnosis: 1. Sliding hiatal hernia with no obvious esophagitis or complicated reflux disease. 2. Mild gastritis and duodenitis. 3. Mild sigmoid diverticulosis. 4. Multiple biopsies obtained from the duodenum, antrum , esophagus and right colon. Preparation HalfLytely prep. Sedation was provided by anesthesia. Brief clinical history: The patient is a 72-year-old male who was evaluated in the office earlier this month regarding abdominal pains and diarrhea that he has been experiencing for the last 4 months with intermittent rectal bleeding. The patient was averaging 10 bowel movement daily urgent and loose and he reported waking up at night with diarrhea. He also complains of nausea and abdominal cramps. This evaluation is to rule out inflammatory bowel disease, celiac disease or other pathology. Procedure: With the patient on his left lateral decubitus position and after informed consent and adequate sedation, I passed the Olympus-GIF 160 video upper endoscope through the cricopharyngeus down the esophagus. GE junction was around 36 cm from the incisors and there was a sliding hiatal hernia measuring around 2 cm. The esophagus did not show any obvious erosions, ulcers , strictures or Marsh's esophagus. The endoscope was then passed into the stomach which was insufflated with air and inspected in detail including the retroflex view in the cardia. Finally, the endoscope was passed to the pylorus into the duodenum. The stomach showed minimal mottling and erythema in the antrum consistent with mild antral gastritis but no ulcers or erosions. Pyloric channel did not show any ulcers. Duodenal bulb, post bulbar area and descending duodenum showed some erythema but no ulcers, erosions or bleeding. I obtained multiple biopsies from the duodenum, antrum and esophagus then the endoscope was withdrawn and I proceeded to perform the colonoscopy. Perianal area did not show any fissures or fistulas. There were no masses felt on digital rectal examination. The Olympus CFQ 160L video colonoscope was then inserted in the rectum in the usual fashion and advanced to the cecum. I could not intubate the ileocecal valve, to examine the terminal ileum and to obtain biopsies, despite various attempts. The colon showed minimal diverticulosis in the distal sigmoid with no evidence of acute diverticulitis or strictures. The mucosa appeared healthy with no evidence of colitis. No polyps or tumors were seen. I retroflexed the endoscope in the rectum before the endoscope was withdrawn. There were few telangiectatic vessels limited to the area close to the anorectal junction that were not bleeding. The patient tolerated the procedure well. Plan: The patient was reassured. Will await biopsy results. He will follow up with you as planned later this month and he will be following in our office early next month. We would keep you updated on his progress. Implants: Indications for Procedure: Operative Findings: Description of Procedure:
[2017-07-16 15:12] VITALS: BP 167/85; PULSE 54; RESP 18
== END 2017-07-16 15:29 | disposition home or self-care (01) ==
LOC: ORWHC2ENDO 12:20
DX: K29.50 Unspecified chronic gastritis without bleeding (principal); K20.9 Esophagitis, unspecified; K44.9 Diaphragmatic hernia without obstruction or gangrene; K29.80 Duodenitis without bleeding; K57.30 Diverticulosis of large intestine without perforation or abscess without bleeding; Z87.19 Personal history of other diseases of the digestive system; I10 Essential (primary) hypertension; E78.5 Hyperlipidemia, unspecified; M19.90 Unspecified osteoarthritis, unspecified site; I25.10 Atherosclerotic heart disease of native coronary artery without angina pectoris; F39 Unspecified mood [affective] disorder; I25.2 Old myocardial infarction; Z79.891 Long term (current) use of opiate analgesic; Z79.899 Other long term (current) drug therapy; Z88.1 Allergy status to other antibiotic agents; Z88.5 Allergy status to narcotic agent; Z72.0 Tobacco use
CPT/HCPCS: 88305; 88342; 45380; 43239; J2001; J3010; J2704

== ENCOUNTER → 2017-07-30 | Outpatient (CLI) | payer MEDICARE, OTHER ==
[2017-07-30 08:29] LABS: Blood Urea Nitrogen 9 mg/dL (9-20); Non-African American GFR(MDRD) >60 (>60 ml/min/1.73 sqM)
--- NOTE | 2017-07-30 09:26 | CT ---
EXAMINATION TYPE: CT abdomen pelvis wo/w con DATE OF EXAM: 07/30/2017 COMPARISON: CT abdomen April 24, 2016 HISTORY: Unspecified abdominal pain (R 10.9) per order CT DLP: 789.10 mGycm, Automated Exposure Control for Dose Reduction was Utilized. CONTRAST: CT scan of the abdomen and pelvis is performed with oral and without and with IV Contrast, patient in jected with 100 ml mL of Omnipaque 300. FINDINGS: LUNG BASES: There are some scattered areas of linear scarring and/or atelectasis in both bases. LIVER/GB: No significant abnormality is appreciated. PANCREAS: No significant abnormality is seen. SPLEEN: No significant abnormality is seen. ADRENALS: There is persistent low dense nodular thickening to both adrenal glands suggestive of benig n lipid rich hyperplasia. KIDNEYS: Central calcifications in both kidneys are favored vascular. There are a few simple appearin g cysts scattered throughout the upper pole level of left kidney. Dominant partially exophytic low de nse lesion posterior lateral right kidney has Hounsfield units between 10 and 20 with possible fat al david the posterior periphery measuring 2.5 cm on series 9 image 26, suspect simple cyst with adjacent perinephric fat or possibly angiomyolipoma, either way benign etiology. Scattered pelvic phleboliths are seen. BOWEL: Stomach is poorly contrast opacified and thus suboptimally evaluated. There is no suspicious s mall or large bowel dilatation as oral contrast reaches level of rectum. PROSTATE/SEMINAL VESICLES: Prostate gland is felt upper limits of normal in size. LYMPH NODES: No greater than 1cm abdominal or pelvic lymph nodes are appreciated. OSSEOUS STRUCTURES: No significant abnormality is seen. OTHER: There is fairly moderate mixed plaque in ectatic and aneurysmal abdominal aorta redemonstrated . Aorta measures up to 3.4 cm transversely on axial image 28 stable from prior. IMPRESSION: 1. 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 No suspicious new nodularity, enhancement, or thickened septa identified to suggest malignant etiology. Consider persistent annual surveillance. 2. Stable ectasia, atherosclerotic change, and aneurysmal change of the abdominal aorta as detailed a christian measuring up to 3.4 cm on current study.
== END | disposition home or self-care (01) ==
LOC: RADCTMAIN 07:14
PROVIDERS: ATTEND Family Medicine
DX: N28.89 Other specified disorders of kidney and ureter (principal); I71.4 Abdominal aortic aneurysm, without rupture; I70.0 Atherosclerosis of aorta
CPT/HCPCS: 82565; 84520; 74178; 36415; Q9967

== ENCOUNTER → 2018-06-10 | Outpatient (CLI) | payer MEDICARE, OTHER ==
[2018-06-10 14:39] VITALS: BP 167/67; RESP 16
--- NOTE | 2018-06-10 15:07 | P.PAINPG ---
Subjective Progress Note Date: 06/10/18 This is follow-up visit for this patient with a history of severe and chronic low back pain secondary to lumbar bulging disc disease, lumbar radiculopathy, lumbar spinal stenosis We have done an interventional pain procedure lumbar epidural steroid injection 3 done ,one year ago, he did fairly well until recently she reported that he had increase of his low back pain with radiation to the lower extremity associated with numbness and tingling sensation, if she'll occasionally his lower extremities giving out on him, and he lose control of his lower extremities, he is able to ambulate without difficulty, but he had pain that is interfering with his quality of life, he denies any fever or night sweats. Denies any change in the bowel movement or urination, Objective - Vital Signs Vital signs: Vital Signs Temp Pulse Resp 16 06/10/18 14:22 BP 167/67 06/10/18 14:22 Pulse Ox 96 06/10/18 14:22 Intake & Output 06/09/18 06/10/18 06/10/18 18:59 06:59 18:59 Weight 63.503 kg - Exam Physical Examinations : 1-Constitutiona : Cooperative , not in acute distress . 2-HEENT : nech ; supple , no Lymphadenopathy , normal thyroid size . eyes : no ptosis , no icterus , no photophobia . ENT : normal of hearing , normal oropharynx , no Thrush . 3- Respiratory : Chest clear to auscultations Bilaterally , no wheezing , no Rhonchi . 4- Cardiovascular : regular rate and rhythem , S1 , S2 , no S3 , no S4. 5- Gastrointestinal : abdomen soft no tenderness , bowel sounds , no organomegally . 6- Genitourinary : Defferred . 7- neurologic : Cranial nerve II to XII intact , no focal neurological deffecit . 8-psychatric : alert , oriented X 3 , appropriate affect , intact judgment and insight . 9-Lymphatic : no Lymphadenopathy . 10- musculoskeltal : Lumber spine = lumber facet Loading Test positive strait leg raising test positive at 30 degree Right , positve at 30 degree Left Fabere test positive Right and positive Left tenderness over the Sacroiliac joint on the Right , and Left side Motor strength in the lower extremity 4/5 bilaterally MRI of the lumbar spine done in 2017 for L4 5 lumbar bulging disc disease and neuroforaminal stenosis Assessment and Plan Plan: Assessment and plan= lumbar radiculopathic, lumbar spinal stenosis, lumbar bulging disc disease multilevel L2 3 L3 4 and L4 5 Patient will be good candidate to have lumbar epidural steroid injections under fluoroscopy guidance 3 Patient could benefit from Neurontin milligrams 3 times a day If patient continues to have pain after the epidural steroid injection then we will refer him to neurosurgery for further evaluation Time with Patient: Less than 30 PQRS Measure Charge Sheet Measure #130: Documentation of Current Meds in Medical Chart: Patient's medications documented in chart Measure #226: Tobacco Use: Screen & Cessation Intervention: Pt screened for tobacco use AND intervention given Measure #111: Pneumonia Vaccination: Pneumococcal vaccine administered or previously received Measure #47: Advance Care Plan: Advance care planning discussed & documented, pt chose/unable to give Measure #412: Opioid Treatment Agreement: No documentation of signed opioid treatment agreement Measure #408: Opioid Therapy Follow-up Evaluation: Patient had NO f/u eval minimum every 3 months during opioid therapy Measure #317: Preventitive Care & Scrn High Bld Press & F/U: Pre-hypertensive or hypertensive BP documented, pt will f/u with PCP Measure #128: Body Mass Index (BMI) Screening & Follow-up: BMI documented within normal parameters Measure #131: Pain Assessment & Follow-up: Pain positive & plan documented, Follow-up scheduled Measure #431: Unhealthy Alcohol Use Preventative Care & Scrn: Patient not identified as an unhealthy alcohol user PQRS Narrative: Smoking Status Current every day smoker Do You Want the Pneumonia Vaccine Up to Date Vaccine AT THIS TIME? Blood Pressure 167/67 Pain Intensity [Bilateral 8 Lower Back] Scale Used Numeric (1 - 10) Hx Alcohol Use (MH) Yes: 3 beer monthly Home Medications: Ambulatory Orders Nitroglycerin Sl Tabs [Nitrostat] 0.4 mg SUBLINGUAL Q5M PRN 03/27/14 Atorvastatin [Lipitor] 80 mg PO HS 09/20/14 Ezetimibe [Zetia] 10 mg PO DAILY 09/20/14 DULoxetine HCL [Cymbalta] 60 mg PO DAILY 01/22/17 Esomeprazole Magnesium [NexIUM] 40 mg PO DAILY 01/22/17 Levothyroxine Sodium [Synthroid] 25 mcg PO DAILY 01/22/17 Lisinopril 30 mg PO DAILY 01/22/17 Loratadine [Claritin] 10 mg PO DAILY 07/06/17 valACYclovir [Valtrex] 500 mg PO DAILY PRN 07/06/17 Ergocalciferol (Vitamin D2) [Vitamin D2] 50,000 unit PO MO 07/15/17 oxyCODONE HCL/ACETAMINOPHEN [Percocet 10-325 mg] 1 tab PO QID 07/16/17 Gabapentin [Neurontin] 100 mg PO TID #90 cap 06/10/18 Controlled Substance Measures - Controlled Substance Measures Is patient prescribed a controlled substance at discharge?: No When asked, does pt state using other controlled substances?: No If prescribed controlled substance>3 days was MAPS reviewed?: No If Rx opioid, was Start Talking consent form obtained?: No If opioid is for acute pain is fill amount 7 days or less?: No Was information provided regarding opioid addiction?: No
== END | disposition home or self-care (01) ==
LOC: PNWHC3 13:12
PROVIDERS: ATTEND Specialist
DX: M48.02 Spinal stenosis, cervical region (principal); M51.16 Intervertebral disc disorders with radiculopathy, lumbar region; F17.200 Nicotine dependence, unspecified, uncomplicated; Z79.899 Other long term (current) drug therapy; Z79.891 Long term (current) use of opiate analgesic
CPT/HCPCS: 99211

== ENCOUNTER 2018-06-20 19:58 | Inpatient (IN) | payer MEDICARE, OTHER ==
--- NOTE | 2018-06-20 20:35 | ED ---
General Adult HPI - General Chief complaint: Syncope Stated complaint: syncope,dizziness Time Seen by Provider: 06/20/18 20:18 Source: patient, family, RN notes reviewed Mode of arrival: EMS Limitations: no limitations - History of Present Illness Initial comments: Patient is a pleasant 72-year-old male presenting to the emergency department following syncopal episode. Episode occurred just prior to arrival. Patient was at a family picnic. Patient suddenly became unresponsive lasting up to 2-3 minutes. There was some odd movements. There is also some discoloration of the lips. Patient then woke up fairly quickly and did not seem confused. Patient only complains of some lightheadedness however denies any other complaints. No confusion. No chest pain. No isolated area of weakness. No dyspnea. Patient did have similar episode less than a year ago and did have pacemaker placed following that. - Related Data Home Medications Medication Instructions Recorded Confirmed Nitroglycerin Sl Tabs [Nitrostat] 0.4 mg SUBLINGUAL Q5M PRN 03/27/14 06/17/18 Atorvastatin [Lipitor] 80 mg PO HS 09/20/14 06/17/18 Ezetimibe [Zetia] 10 mg PO DAILY 09/20/14 06/17/18 DULoxetine HCL [Cymbalta] 60 mg PO DAILY 01/22/17 06/17/18 Esomeprazole Magnesium [NexIUM] 40 mg PO DAILY 01/22/17 06/17/18 Levothyroxine Sodium [Synthroid] 25 mcg PO DAILY 01/22/17 06/17/18 Lisinopril 30 mg PO DAILY 01/22/17 06/17/18 Loratadine [Claritin] 10 mg PO DAILY 07/06/17 06/17/18 valACYclovir [Valtrex] 500 mg PO DAILY PRN 07/06/17 06/17/18 Ergocalciferol (Vitamin D2) 50,000 unit PO MO 07/15/17 06/17/18 [Vitamin D2] oxyCODONE HCL/ACETAMINOPHEN 1 tab PO QID 07/16/17 06/17/18 [Percocet 10-325 mg] Previous Rx's Medication Instructions Recorded Gabapentin [Neurontin] 100 mg PO TID #90 cap 06/10/18 Allergies Allergy/AdvReac Type Severity Reaction Status Date / Time cefazolin Allergy Rash/Hives Verified 06/20/18 20:17 cefazolin sodium [From Ancef] Allergy Rash/Hives Verified 06/20/18 20:17 morphine AdvReac Nausea & Verified 06/20/18 20:17 Vomiting Review of Systems ROS Statement: Those systems with pertinent positive or pertinent negative responses have been documented in the HPI. ROS Other: All systems not noted in ROS Statement are negative. Constitutional: Denies: fever Eyes: Denies: eye pain ENT: Denies: ear pain Respiratory: Denies: cough, dyspnea Cardiovascular: Denies: chest pain Endocrine: Denies: fatigue Gastrointestinal: Denies: abdominal pain Genitourinary: Denies: dysuria Musculoskeletal: Denies: back pain Skin: Denies: rash Neurological: Denies: headache Past Medical History Past Medical History: Cancer, Chest Pain / Angina, Hyperlipidemia, Myocardial Infarction ([place]), Osteoarthritis (OA), Syncope Additional Past Medical History / Comment(s): [place] X2,MIGRAINES, SKIN CA, pain lower spine and legs, rectal bleeding , abdominal pain and loose stools Last Myocardial Infarction Date:: AGE 30'S History of Any Multi-Drug Resistant Organisms: None Reported Past Surgical History: Back Surgery, Heart Catheterization, Hernia Repair, Orthopedic Surgery Additional Past Surgical History / Comment(s): LAMINECTOMY & PLACEMENT OF NEUROSTIMULATOR, REPOSITION OF NEUROSTIMULATOR HARDWARE- NEUROSTIMULATOR REMOVED,pain clinic procedures, bilateral cataract surgery Past Anesthesia/Blood Transfusion Reactions: Motion Sickness Past Psychological History: Anxiety, Depression Smoking Status: Current every day smoker Past Alcohol Use History: Occasional Past Drug Use History: None Reported - Past Family History Father Family Medical History: Cancer Brother(s) Family Medical History: Cancer General Exam Limitations: no limitations General appearance: alert, in no apparent distress Head exam: Present: atraumatic Eye exam: Present: normal appearance, PERRL, EOMI. Absent: nystagmus ENT exam: Present: normal oropharynx Neck exam: Present: normal inspection. Absent: tenderness Respiratory exam: Present: normal lung sounds bilaterally Cardiovascular Exam: Present: regular rate, normal rhythm Expanded Peripheral pulses: 2+: Radial (R), Radial (L), Posterior Tibialis (R), Posterior Tibialis (L) GI/Abdominal exam: Present: soft. Absent: tenderness Extremities exam: Present: normal inspection. Absent: pedal edema, calf tenderness Neurological exam: Present: alert, oriented X3, CN II-XII intact. Absent: motor sensory deficit Expanded Neurological exam: Present: protecting the airway Patient oriented to: Present: person, place, time Speech: Present: fluid speech Cranial nerves: EOM's Intact: Normal, Facial Sensation: Normal Sensory exam: Upper Extremity Light Touch: Normal, Lower Extremity Light Touch: Normal Motor strength exam: RUE: 5, LUE: 5, RLE: 5, LLE: 5 Eye Response: (4) open spontaneously Motor Response: (6) obeys commands Verbal Response: (5) oriented Psychiatric exam: Present: normal affect, normal mood Skin exam: Present: normal color Course Vital Signs 06/20/18 06/20/18 06/20/18 20:11 20:18 21:04 Temperature 98.1 F Pulse Rate 87 73 Pulse Rate [ 80 Vamp Stitcher ] Respiratory 18 17 Rate Blood Pressure 101/67 94/57 O2 Sat by Pulse 94 L 98 Oximetry EKG Findings - EKG Comments: EKG Findings:: Sinus rhythm at 84. For screening AV block with SD of 3:30. QRS 96. QT 422. QTC 498. Normal axis. Septal Q waves. T-wave inversion in multiple leads. Medical Decision Making - Medical Decision Making Patient reevaluated and resting comfortably in bed. Patient and family updated on results and plan. Patient is receiving fluids. Cause of hyponatremia is unclear at this time. Case was discussed in detail with Dr. davison, who will admit for Dr. June. - Lab Data Result diagrams: 06/20/18 20:06 06/20/18 20:06 Lab Results 06/20/18 06/20/18 06/20/18 Range/Units 20:06 20:06 20:06 WBC 7.3 (3.8-10.6) k/uL RBC 4.10 L (4.30-5.90) m/uL Hgb 13.5 (13.0-17.5) gm/dL Hct 39.4 (39.0-53.0) % MCV 96.3 (80.0-100.0) fL MCH 33.0 (25.0-35.0) pg MCHC 34.3 (31.0-37.0) g/dL RDW 12.5 (11.5-15.5) % Plt Count 276 (150-450) k/uL Neutrophils % 66 % Lymphocytes % 20 % Monocytes % 7 % Eosinophils % 4 % Basophils % 1 % Neutrophils # 4.8 (1.3-7.7) k/uL Lymphocytes # 1.5 (1.0-4.8) k/uL Monocytes # 0.5 (0-1.0) k/uL Eosinophils # 0.3 (0-0.7) k/uL Basophils # 0.1 (0-0.2) k/uL PT (9.0-12.0) sec INR (<1.2) APTT (22.0-30.0) sec Sodium 122 L (137-145) mmol/L Potassium 4.0 (3.5-5.1) mmol/L Chloride 93 L (98-107) mmol/L Carbon Dioxide 17 L (22-30) mmol/L Anion Gap 12 mmol/L BUN 13 (9-20) mg/dL Creatinine 1.00 (0.66-1.25) mg/dL Est GFR (CKD-EPI)AfAm 88 (>60 ml/min/1.73 sqM) Est GFR (CKD-EPI)NonAf 76 (>60 ml/min/1.73 sqM) Glucose 113 H (74-99) mg/dL Calcium 8.8 (8.4-10.2) mg/dL Total Bilirubin 0.4 (0.2-1.3) mg/dL AST 46 (17-59) U/L ALT 37 (21-72) U/L Alkaline Phosphatase 37 L (38-126) U/L Total Creatine Kinase 576 H (55-170) U/L CK-MB (CK-2) 8.0 H* (0.0-2.4) ng/mL CK-MB (CK-2) Rel Index 1.4 Troponin I 0.014 (0.000-0.034) ng/mL Total Protein 5.9 L (6.3-8.2) g/dL Albumin 3.6 (3.5-5.0) g/dL Urine Color Urine Appearance (Clear) Urine pH (5.0-8.0) Ur Specific [place] (1.001-1.035) Urine Protein (Negative) Urine Glucose (UA) (Negative) Urine Ketones (Negative) Urine Blood (Negative) Urine Nitrite (Negative) Urine Bilirubin (Negative) Urine Urobilinogen (<2.0) mg/dL Ur Leukocyte Esterase (Negative) 06/20/18 06/20/18 Range/Units 20:06 21:25 WBC (3.8-10.6) k/uL RBC (4.30-5.90) m/uL Hgb (13.0-17.5) gm/dL Hct (39.0-53.0) % MCV (80.0-100.0) fL MCH (25.0-35.0) pg MCHC (31.0-37.0) g/dL RDW (11.5-15.5) % Plt Count (150-450) k/uL Neutrophils % % Lymphocytes % % Monocytes % % Eosinophils % % Basophils % % Neutrophils # (1.3-7.7) k/uL Lymphocytes # (1.0-4.8) k/uL Monocytes # (0-1.0) k/uL Eosinophils # (0-0.7) k/uL Basophils # (0-0.2) k/uL PT 10.1 (9.0-12.0) sec INR 1.0 (<1.2) APTT 23.2 (22.0-30.0) sec Sodium (137-145) mmol/L Potassium (3.5-5.1) mmol/L Chloride (98-107) mmol/L Carbon Dioxide (22-30) mmol/L Anion Gap mmol/L BUN (9-20) mg/dL Creatinine (0.66-1.25) mg/dL Est GFR (CKD-EPI)AfAm (>60 ml/min/1.73 sqM) Est GFR (CKD-EPI)NonAf (>60 ml/min/1.73 sqM) Glucose (74-99) mg/dL Calcium (8.4-10.2) mg/dL Total Bilirubin (0.2-1.3) mg/dL AST (17-59) U/L ALT (21-72) U/L Alkaline Phosphatase (38-126) U/L Total Creatine Kinase (55-170) U/L CK-MB (CK-2) (0.0-2.4) ng/mL CK-MB (CK-2) Rel Index Troponin I (0.000-0.034) ng/mL Total Protein (6.3-8.2) g/dL Albumin (3.5-5.0) g/dL Urine Color Yellow Urine Appearance Clear (Clear) Urine pH 6.5 (5.0-8.0) Ur Specific [place] 1.010 (1.001-1.035) Urine Protein Trace H (Negative) Urine Glucose (UA) Negative (Negative) Urine Ketones Negative (Negative) Urine Blood Negative (Negative) Urine Nitrite Negative (Negative) Urine Bilirubin Negative (Negative) Urine Urobilinogen 2.0 (<2.0) mg/dL Ur Leukocyte Esterase Negative (Negative) - Radiology Data Radiology results: report reviewed (Computed tomography scan of the brain shows atrophy and chronic small vessel ischemia changes.), image reviewed (Chest x- ray shows no acute process.) Disposition Clinical Impression: Hyponatremia, Syncope Disposition: ADMITTED IP TO THIS [facility] Referrals: Mario June DO [Primary Care Provider] - 1-2 days Decision Time: 21:57
[2018-06-20 20:43] LABS: Basophils # (A) 0.1 k/uL (0-0.2); Basophils % (A) 1 %; Eosinophils # (A) 0.3 k/uL (0-0.7); Eosinophils % (A) 4 %; HCT 39.4 % (39.0-53.0); HGB 13.5 gm/dL (13.0-17.5); Lymphocytes # (A) 1.5 k/uL (1.0-4.8); Lymphocytes % (A) 20 %; MCHC 34.3 g/dL (31.0-37.0); MCV 96.3 fL (80.0-100.0); Mean Platelet Volume 6.3; Monocytes # (A) 0.5 k/uL (0-1.0); Monocytes % (A) 7 %; Neutrophils # (A) 4.8 k/uL (1.3-7.7); Neutrophils % (A) 66 %; Platelet Count 276 k/uL (150-450); RDW 12.5 % (11.5-15.5); WBC 7.3 k/uL (3.8-10.6)
[2018-06-20 20:50] LABS: Albumin 3.6 g/dL (3.5-5.0); Calcium 8.8 mg/dL (8.4-10.2); Total Bilirubin 0.4 mg/dL (0.2-1.3); Total Protein 5.9 g/dL (6.3-8.2)
--- NOTE | 2018-06-20 20:50 | XR ---
EXAMINATION TYPE: XR chest 2V DATE OF EXAM: 06/20/2018 COMPARISON: Chest radiograph 07/06/2017 HISTORY: History of MT and syncope today TECHNIQUE: Frontal and lateral views of the chest are obtained. FINDINGS: Left-sided dual-lead cardiac conduction device is present with intact wires in the tips charleen ropriately positioned. There is no focal air space opacity, pleural effusion, or pneumothorax seen. The cardiac silhouette size is within normal limits. The osseous structures are intact. IMPRESSION: No acute cardiopulmonary process.
[2018-06-20 20:55] LABS: Partial Thromboplastin Time 23.2 sec (22.0-30.0); Prothrombin Time 10.1 sec (9.0-12.0)
--- NOTE | 2018-06-20 21:13 | CT ---
EXAMINATION TYPE: CT brain wo con DATE OF EXAM: 06/20/2018 HISTORY: episode of syncope CT DLP: 1029.90 mGycm. Automated Exposure Control for Dose Reduction was Utilized. TECHNIQUE: CT scan of the head is performed without contrast. COMPARISON: CT brain 09/20/2014 FINDINGS: There is no acute intracranial hemorrhage or midline shift identified. There is diffuse v entricular and sulcal prominence consistent with diffuse age-related cerebral atrophy. There is low- attenuation in the periventricular white matter consistent with chronic small vessel ischemic change. This is somewhat asymmetric and more pronounced in the periventricular white matter of the right fro ntal lobe and is unchanged when compared to previous study from 2013. The globes are intact and the v isualized sinuses are clear. No skull fracture. Soft tissues are unremarkable. IMPRESSION: No acute intracranial hemorrhage or midline shift. Redemonstration of diffuse age-relate d cerebral atrophy and chronic small vessel ischemic change.
[2018-06-20 21:16] LABS: Troponin I 0.014 ng/mL (0.000-0.034)
[2018-06-20 21:41] LABS: Appearance,Urine Clear (Clear); Bilirubin,Urine Negative (Negative); Blood,Urine Negative (Negative); Color,Urine Yellow; Glucose,Urine (UA) Negative (Negative); Ketones,Urine Negative (Negative); Leukocyte Esterase,Urine Negative (Negative); Nitrite,Urine Negative (Negative); PH, Urine 6.5 (5.0-8.0); Protein,Urine Trace (Negative)
[2018-06-20] MEDS: SODIUM CHLORIDE 0.9% 1,000 ML IV SCH (21:41)
[2018-06-20 22:44] LABS: Glucose,Whole Blood 93 mg/dL (75-99)
[2018-06-21 00:04] LABS: Creatinine,Urine Random 138.7 mg/dL
[2018-06-21] MEDS: oxyCODONE-APAP 10-325MG 1 EACH TAB PO PRN ×3 (01:11→21:38)
[2018-06-21] MEDS: SODIUM CHLORIDE 0.9% 1,000 ML IV SCH ×3 (02:12→13:10)
[2018-06-21 04:10] LABS: Basophils % (A) 1 %; Eosinophils # (A) 0.3 k/uL (0-0.7); Eosinophils % (A) 4 %; HCT 37.7 % (39.0-53.0); HGB 12.9 gm/dL (13.0-17.5); Lymphocytes # (A) 1.3 k/uL (1.0-4.8); Lymphocytes % (A) 17 %; MCH 33.2 pg (25.0-35.0); MCHC 34.3 g/dL (31.0-37.0); MCV 96.7 fL (80.0-100.0); Mean Platelet Volume 6.2; Monocytes # (A) 0.6 k/uL (0-1.0); Monocytes % (A) 7 %; Neutrophils # (A) 5.2 k/uL (1.3-7.7); Neutrophils % (A) 69 %; Platelet Count 250 k/uL (150-450); RDW 12.6 % (11.5-15.5); WBC 7.6 k/uL (3.8-10.6)
[2018-06-21 04:20] LABS: Anion Gap 8 mmol/L; Blood Urea Nitrogen 14 mg/dL (9-20); Calcium 8.6 mg/dL (8.4-10.2); Carbon Dioxide 23 mmol/L (22-30); Chloride 93 mmol/L (98-107); Cholesterol 175 mg/dL (<200); Glucose 94 mg/dL (74-99); HDL Cholesterol 67 mg/dL (40-60); LDL Cholesterol,Calculated 96 mg/dL (0-99); Magnesium 1.6 mg/dL (1.6-2.3); Phosphorus 3.9 mg/dL (2.5-4.5); Potassium 4.3 mmol/L (3.5-5.1); Sodium 124 mmol/L (137-145); Triglycerides 62 mg/dL (<150)
[2018-06-21 04:48] VITALS: BMI 23.3
[2018-06-21] MEDS ORDERED: Magnesium Replacement Protocol 1 EACH MISC MISCELLANE PRN (05:46)
[2018-06-21] MEDS: MAGNESIUM SULFATE-D5W PMX 1 GM in DEXTROSE/WATER 1 100ML.BAG IVPB SCH ×2 (05:57→07:11)
[2018-06-21 06:11] LABS: Creatine Kinase MB 8.4 ng/mL (0.0-2.4)
[2018-06-21] MEDS: EZETIMIBE 10 MG TAB PO SCH (08:31)
--- NOTE | 2018-06-21 08:31 | CONS ---
CONSULTATION Attending: Dr. June. Mr. Wood is a 72-year-old male who is followed on a regular basis with Dr. Yanes who presented with a syncopal episode. He was sitting at a picnic when he had a sudden syncope that was brief. He came to and he was aware of his surroundings, but he was quite weak afterward. He did not have any tonic clonic seizure. He had no palpitation prior to that. He only felt dizzy. He had no chest pain. His breathing is stable. According to him, he had similar symptoms in October of last year and was seen by Dr. Yanes and subsequently permanent pacemaker implantation for advanced heart block. No history of PND or orthopnea. No CHF. No significant palpitation. No peripheral edema. He is reasonably active physically. There is a question that he has a history of myocardial infarction many years ago, although details of that are not available to me. His coronary risk factors are positive for history of hyperlipidemia, hypertension. He is a nondiabetic. He has a history of smoking. MEDICATIONS: His medications include vitamin D, Nexium, Cymbalta, Lipitor 80 mg daily, Zetia 10 mg daily, lisinopril 30 mg daily, Synthroid, Claritin, and Valtrex as needed. REVIEW OF SYSTEMS: RESPIRATORY SYSTEM: He has no recent wheezing. No cough. No history of documented obstructive lung disease. GI SYSTEM: No recent GI bleeding. No peptic ulcer disease. SYSTEM: No dysuria or hematuria. NERVOUS SYSTEM: No history of seizure. PHYSICAL EXAMINATION: A 72-year-old male, alert, oriented, in no apparent distress. Blood pressure 140/70 with the heart rate in the 60s. HEAD: Normocephalic. EYES: Sclerae anicteric. NECK: Good carotid upstroke. No bruit. No jugular venous distention. LUNGS: Clear to auscultation. HEART: Regular rate and rhythm. S1, S2. No S3. No rub appreciated. No gallop. ABDOMEN: Soft, nontender. Positive bowel sounds. No organomegaly. EXTREMITIES: No edema, intact distal pulses. LAB DATA: Lab data revealed EKG sinus mechanism, first-degree AV block with nonspecific ST-T wave changes. Chest x-ray revealed no acute infiltrate. CT scan of the head shows no acute changes. IMPRESSION: 1. Syncopal episode of unclear etiology. No clear evidence to suggest pacemaker malfunction. 2. History of hyperlipidemia. 3. History of hypertension. RECOMMENDATION: We will interrogate his device that is a [employer]. I will obtain echocardiogram with Doppler. His lab data showed a mild elevation of his total CK, but his troponins on the initial samples are negative. We will follow his troponins. Follow his rhythm and depending on his progress, further recommendation will be made. Thank you for this consult. We will follow with you. ASHLEYL / IJN: [id number] /
[2018-06-21] MEDS: LEVOTHYROXINE 25 MCG TAB PO SCH (08:32)
[2018-06-21] MEDS: GABAPENTIN 100 MG CAP PO SCH ×3 (08:32→21:37)
[2018-06-21] MEDS ORDERED: ASPIRIN 81 MG PO SCH (09:00)
[2018-06-21] MEDS ORDERED: DULoxetine HCL 60 MG CAPSULE.DR PO SCH (09:00)
[2018-06-21] MEDS ORDERED: LISINOPRIL 10 MG TAB PO SCH (09:00)
--- NOTE | 2018-06-21 09:52 | US ---
EXAMINATION TYPE: US carotid duplex BILAT DATE OF EXAM: 06/21/2018 COMPARISON: NONE CLINICAL HISTORY: Stenosis. No hx of TIA or stroke. HTN per patient. EXAM MEASUREMENTS: RIGHT: Peak Systolic Velocity (PSV) cm/sec ----- Right CCA: 64.2 ----- Right ICA: 69.4 ----- Right ECA: 75.4 ICA/CCA ratio: 1.1 RIGHT: End Diastole cm/sec ----- Right CCA: 15.4 ----- Right ICA: 21.5 ----- Right ECA: 9.5 LEFT: Peak Systolic Velocity (PSV) cm/sec ----- Left CCA: 98.4 ----- Left ICA: 72.4 ----- Left ECA: 119.4 ICA/CCA ratio: 0.7 LEFT: End Diastole cm/sec ----- Left CCA: 17.6 ----- Left ICA: 20.8 ----- Left ECA: 17.6 VERTEBRALS (direction of flow): Right Vertebral: Antegrade Left Vertebral: Antegrade Rhythm: Normal Bilateral wall thickening. No elevated velocities or significant stenosis. Plaque seen in bilateral bulbs and mid right CCA There is moderate eccentric hyperechoic plaque centered at right carotid bulb and mild diffuse periph eral plaque centered at left carotid bulb. Velocity measurements and ratios remain within normal limi ts in both internal carotid arteries. IMPRESSION: Mild to moderate atherosclerotic change bilaterally without hemodynamically significant s tenosis seen in either internal carotid artery.
--- NOTE | 2018-06-21 11:20 | ECHOF ---
Referral Reason:Thrombus MEASUREMENTS -------- HEIGHT: 165.1 cm WEIGHT: 63.5 kg BP: 143/82 IVSd: 1.1 cm (0.6 - 1.1) LVIDd: 4.7 cm (3.9 - 5.3) LVPWd: 1.1 cm (0.6 - 1.1) IVSs: 1.5 cm LVIDs: 3.4 cm LVPWs: 1.4 cm LAESV Index (A-L): 29.01 ml/m Ao Diam: 3.2 cm (2.0 - 3.7) AV Cusp: 2.2 cm (1.5 - 2.6) LA Diam: 3.2 cm (2.7 - 3.8) MV EXCURSION: 22.213 mm (> 18.000) MV EF SLOPE: 69 mm/s (70 - 150) EPSS: 0.8 cm MV E David: 0.51 m/s MV DecT: 242 ms MV A David: 1.07 m/s MV E/A Ratio: 0.48 AR PHT: 310 ms RAP: 5.00 mmHg RVSP: 22.51 mmHg FINDINGS -------- Paced rhythm. This was a technically good study. The left ventricular size is normal. Left ventricular wall thickness is normal. Overall left vent ricular systolic function is mild-moderately impaired with, an EF between 40 - 45 %. Basal inferose ptal LV wall motion is hypokinetic. Basal inferolateral hypokinesis. The right ventricle is normal in size and function. LA is midly dilated 29-33ml/m2. The right atrium is normal in size. The aortic valve is trileaflet, and appears structurally normal. No aortic stenosis or regurgitation. Trace amount of aortic regurgitation. There is trace mitral regurgitation. Trace tricuspid regurgitation present. The right ventricular systolic pressure, as measured by Dopp ler, is 22.51mmHg. Pulmonic valve appears structurally normal. The aortic root size is normal. Normal inferior vena cava with normal inspiratory collapse consistent with estimated right atrial pre ssure of 5 mmHg. The pericardium is normal. CONCLUSIONS -------- 1. Paced rhythm. 2. This was a technically good study. 3. The left ventricular size is normal. 4. Left ventricular wall thickness is normal. 5. Overall left ventricular systolic function is mild-moderately impaired with, an EF between 40 - 45 %. 6. Basal inferoseptal LV wall motion is hypokinetic. 7. Basal inferolateral hypokinesis. 8. The right ventricle is normal in size and function. 9. LA is midly dilated 29-33ml/m2. 10. The right atrium is normal in size. 11. The aortic valve is trileaflet, and appears structurally normal. No aortic stenosis or regurgitat ion. 12. Trace amount of aortic regurgitation. 13. There is trace mitral regurgitation. 14. Trace tricuspid regurgitation present. 15. The right ventricular systolic pressure, as measured by Doppler, is 22.51mmHg. 16. Pulmonic valve appears structurally normal. 17. The aortic root size is normal. 18. Normal inferior vena cava with normal inspiratory collapse consistent with estimated right atrial pressure of 5 mmHg. 19. The pericardium is normal. MATERIALS HANDLING EQUIPMENT OPERATOR: Abbie Moran RDCS
[2018-06-21] MEDS ORDERED: NITROGLYCERIN SL TABS 0.4 MG TAB SUBLINGUAL PRN (15:34)
[2018-06-21] MEDS: DICYCLOMINE 10 MG CAP PO SCH ×2 (16:05→21:37)
[2018-06-21] MEDS: SODIUM CHLORIDE TAB 1 GM TAB PO SCH ×3 (16:05→21:37)
[2018-06-21] MEDS: ENOXAPARIN 40 MG/0.4 ML SYRINGE SQ SCH (16:05)
--- NOTE | 2018-06-21 16:52 | HP ---
HISTORY AND PHYSICAL DATE OF ADMISSION: 06/20/2018 DATE OF SERVICE: 06/21/2018 PRESENTING COMPLAINT: Passed out. HISTORY OF PRESENTING COMPLAINT: This is a pleasant 72-year-old patient of Dr. June. Chronic stable medical conditions include hyperlipidemia, coronary artery disease with [place] x2, osteoarthritis, permanent pacemaker, anxiety, depression, hypothyroid, hyperlipidemia. The patient was sitting at his granddaughter's boyfriend's place sitting outside, had a couple of beers and patient felt he was dizzy in the head and the patient passed out for 2 minutes. No obvious seizure activity was reported. There was no tongue biting or incontinence. The patient denies any chest pain, no palpitation. The patient initially was noted to have a blood pressure 101/67 and 94/57 in the ER. Also the EMS, the blood pressure is noted to be 88/58. The patient's EKG did show some EKG changes in the anterolateral leads and patient admitted to the ICU as an overflow. Earlier today patient had a pacemaker checked out that came back to be fine. The patient's sodium was noted to be low. The patient does drink quite a bit of water, does not eat fairly much. On weekends, does drink about 6-7 beers. Denies any chest pain or palpitation. REVIEW OF SYSTEMS: CONSTITUTIONAL: Tired. HEENT none. RESPIRATORY none. CARDIOVASCULAR none. GASTROINTESTINAL none. GENITOURINARY: None. MUSCULOSKELETAL none. DERMATOLOGICAL, HEMATOLOGIC, LYMPHATICS: none. PSYCHIATRY none. NEUROLOGICAL: No focal neurological symptoms. PAST MEDICAL HISTORY: Hyperlipidemia, myocardial infarction x2, osteoarthritis, migraines, skin cancer, pain in the lower spine and legs, intermittent loose stools. PAST SURGICAL HISTORY: Back surgery, cardiac catheterization, pacemaker, laminectomy and placement of neurostimulator, reposition of neurostimulator. PSYCH HISTORY: Anxiety and depression. SOCIAL HISTORY: Patient smokes a pack a day for close to 60 years. Drinks 6-7 beers on the weekends. Lives by himself. Sometimes does marijuana. FAMILY HISTORY: Of cancer, type unknown. HOME MEDICATIONS: 1. Valacyclovir 500 mg p.o. daily p.r.n. 2. Percocet 10 1 tab q.4h. 3. Paxil 40 mg a day. 4. Pamelor 25 mg q.h.s. 5. Nitrostat 0.4 sublingual q.5 p.r.n. 6. Claritin 10 mg a day. 7. Lisinopril 30 mg daily. 8. Synthroid 25 mcg a day. 9. Hydrochlorothiazide 25 mg a day. 10.Neurontin 100 mg p.o. t.i.d. 11.Nexium 40 mg a day. 12.Vitamin D2 54052 units p.o. on Thursday. 13.Lomotil 2 tablets p.o. q.i.d. 14.Bentyl 10 mg p.o. t.i.d. 15.Lipitor 80 mg q.h.s. 16.Aspirin 81 mg a day. 17.Fosamax 70 mg p.o. every 7 days. ALLERGIES: To KEFLEX AND MORPHINE. PHYSICAL EXAMINATION: VITAL SIGNS: Vital signs on presentation, temperature 98.1, pulse 87, respiratory 18, blood pressure 88/48 per the EMS and 94/57 in the ER, pulse ox 94% on room air. GENERAL APPEARANCE: Average build, lying in bed, awake. EYES: Pupils equal. Conjunctivae normal. HEENT: External appearance of nose and ears normal. Oral cavity normal. NECK JVD not raised. Mass not palpable. RESPIRATORY: Effort normal. LUNGS slightly decreased breath sounds. CARDIOVASCULAR: 1st and seconds sounds normal. No edema. ABDOMEN: Soft, nontender. Liver and spleen not palpable. LYMPHATICS: No lymph nodes palpable in the neck and axilla. PSYCHIATRY: Alert and oriented x3. Mood and affect normal. NEUROLOGICAL: Pupils equal. Cranial nerves grossly intact. Power and sensation grossly intact. INVESTIGATIONS: White count 7.3, hemoglobin 13.5. Sodium 122, potassium 4, BUN 13, creatinine 1.0, troponin 0.014, 0.024, LDL 96. Chest x-ray film interpreted by me, shows pacemaker leads. Otherwise, lung bo are clear. EKG tracing interpreted by me shows flipped T-waves in lead V3 to V6 and some changes in the inferior leads. 2D echocardiogram shows EF of 40-45% and shows some hypokinesis of the inferoseptal inferolateral bai. ASSESSMENT: 1. This is a patient who presents with episode of passing out, was rather hypotensive both in the field initially presented to the ER. Patient does take a diuretic and IVAN inhibitor 30 mg in the morning and the patient does not eat much and this well could be contributing to his hypotensive episode, could well be contributing to his passing out. The pacemaker was checked out and setting was found to be fine. 2. 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 3. Coronary artery disease, prior myocardial infarction x2. 4. Primary osteoarthritis. 5. Anxiety and depression, not otherwise specified. 6. Hyperlipidemia. 7. The patient has got abnormal wall motion abnormality on the 2D echocardiogram. Need to be further investigated by Cardiology. PLAN: At this point we will cut back the dose of IVAN inhibitor. Since the blood pressure is running low, patient did get IV fluids from the ER. We will cut back to lisinopril hydrochlorothiazide 10/12.5 starting in the morning and we will DC the saline later in the day. The patient will be put on some salt tablets for 24 hours. Get a serum osmolality. EEG was also ordered to rule out a seizure activity though the current above finding should explain his presentation. Care was discussed with the patient. Questions were answered. Copy to Dr. June. Consultation with both neurology and Cardiology was done. MMODL / IJN: [id number] /
[2018-06-21] MEDS ORDERED: SODIUM CHLORIDE TAB 1 GM TAB PO SCH (18:00)
--- NOTE | 2018-06-21 18:52 | EEG ---
ELECTROENCEPHALOGRAM REPORT DATE OF SERVICE: 06/21/2018. REASON FOR TESTING: Syncope. DESCRIPTION OF THE PROCEDURE: This EEG was performed using a 21 channel digital electroencephalograph, following international 10-20 system. DESCRIPTION OF THE RECORDING: From the beginning of the tracing, with patient's eyes closed, the background rhythm was mostly consisting of 8 Hz alpha frequency in the posterior occipital leads. No obvious asymmetry is seen. Photic stimulation was performed with a minimal driving response seen. No pathological waves were elicited. Hyperventilation was not performed. Rare movement artifacts are seen. The patient remains awake throughout the tracing. No epileptiform discharges were seen. His EKG lead showed a regular rate and rhythm. INTERPRETATION: This awake EEG can be considered within normal limits. There was no asymmetry seen. No epileptiform discharges were noticed. The absence of epileptiform discharges does not rule out the diagnosis of epilepsy; therefore clinical correlation is recommended. MMISIDRA / GOOD: [id number] /
[2018-06-21] MEDS ORDERED: ATORVASTATIN 80 MG TAB PO SCH (21:00)
[2018-06-21] MEDS ORDERED: NORTRIPTYLINE 25 MG CAP PO SCH (21:00)
[2018-06-22] MEDS: LEVOTHYROXINE 25 MCG TAB PO SCH (06:13)
[2018-06-22] MEDS ORDERED: PANTOPRAZOLE 40 MG TABLET PO SCH (07:30)
[2018-06-22] MEDS: GABAPENTIN 100 MG CAP PO SCH (07:32)
[2018-06-22] MEDS: DICYCLOMINE 10 MG CAP PO SCH (07:32)
[2018-06-22] MEDS: SODIUM CHLORIDE TAB 1 GM TAB PO SCH ×2 (07:32→13:21)
[2018-06-22] MEDS: EZETIMIBE 10 MG TAB PO SCH (07:32)
[2018-06-22] MEDS: ENOXAPARIN 40 MG/0.4 ML SYRINGE SQ SCH (07:33)
[2018-06-22] MEDS: oxyCODONE-APAP 10-325MG 1 EACH TAB PO PRN (07:42)
--- NOTE | 2018-06-22 08:47 | CONS ---
CONSULTATION DATE OF CONSULTATION: 06/21/2018 CHIEF COMPLAINT: Syncope. HISTORY OF PRESENT ILLNESS: Mr. Marcelino is a pleasant 72-year-old male who is being evaluated today on 06/21/2018 by the neurology service per the request of Dr. Simpson for a syncopal spell. The patient was at his daughter's house where they were having a barbecue. While sitting in his chair, he remembers becoming very lightheaded and this was followed by loss of consciousness. He does not recall having any palpitations or chest pain. No seizure-like activity was described. When the patient regained consciousness, there was no altered mentation. No sphincter incontinence or tongue- biting occurred. The patient had similar symptoms several months ago and ended up having a pacemaker implant. With this episode, the loss of consciousness lasted approximately 2 minutes. In the emergency room, a CT scan of the brain was done, which showed generalized atrophy and small-vessel ischemic changes. This was felt to be unchanged when compared to his 2013 study. His carotid Doppler showed no hemodynamically significant stenosis. I did review his EEG, which was normal. His CBC, lipid panel, and urinalysis were normal. His cardiac enzymes showed elevated CPK at 576, and CK-MB at 8.0, but his troponin was normal. His comprehensive metabolic profile was normal except for hyponatremia at 122. At the time of my evaluation, the patient is resting in his bed and appears to be in no acute distress. He has not had any further presyncopal or syncopal spells. Cardiology has been consulted. PAST MEDICAL HISTORY: Angina, dyslipidemia, history of myocardial infarction, osteoarthritis, migraine headaches, skin cancer, spine surgery, hernia repair, orthopedic surgeries, cataract surgery, depression, anxiety disorder, pacemaker placement. SOCIAL HISTORY: The patient is a current every day smoker. He occasionally drinks alcohol. He denies any drug use. FAMILY HISTORY: Positive for cancer. HOME MEDICATIONS: Reviewed in the chart. ALLERGIES: CEFAZOLIN and MORPHINE. REVIEW OF SYSTEM: As mentioned above and otherwise negative. PHYSICAL EXAM: Vital signs show a temperature of 97.5, pulse 56, respiration 19, blood pressure 125/64. GENERAL APPEARANCE: The patient is a well-developed, elderly male who appears to be in no acute distress. HEENT: Normocephalic, atraumatic, no facial asymmetry is seen. NECK: Supple with no masses felt. CARDIOVASCULAR: Bradycardic rate with a normal rhythm. ABDOMEN: Nontender, nondistended. Extremities showed no edema or clubbing. NEUROLOGICAL EXAM: The patient is awake and oriented x3. Speech and language are normal. Strength is full in all 4 extremities. Sensory exam was normal to light touch in all 4 extremities. No facial asymmetry is seen on cranial nerve testing. No tremors or seizure-like activity is seen. IMPRESSION: 1. Syncopal spell. 2. Hyponatremia. 3. Small vessel ischemic disease. 4. Bradycardia. RECOMMENDATION: The patient did have a witnessed syncopal spell with no seizure-like activity. I did review his EEG, which was normal. His CT scan of the brain was also reviewed, showing no acute abnormalities. The patient does have history of cardiac comorbidities and Cardiology had been consulted. He is currently bradycardic at the time of my evaluation. The patient was also found to be hyponatremic and is currently on IV hydration. A repeat metabolic profile is scheduled for the morning. As for his small vessel ischemic changes seen on the CT scan of the brain, the patient is already on aspirin for antiplatelet therapy. The patient was counseled on tobacco cessation. Continue the rest of your current workup and management. I will continue to follow with you as needed. Thank you for allowing me to participate in the care of your patient. If you have any questions, please feel free to contact me. DAWSON / GOOD: [id number] /
[2018-06-22 08:51] LABS: Anion Gap 5 mmol/L; Blood Urea Nitrogen 14 mg/dL (9-20); Calcium 8.6 mg/dL (8.4-10.2); Carbon Dioxide 26 mmol/L (22-30); Chloride 100 mmol/L (98-107); Glucose 93 mg/dL (74-99); Magnesium 1.8 mg/dL (1.6-2.3); Potassium 4.6 mmol/L (3.5-5.1); Sodium 131 mmol/L (137-145)
[2018-06-22] MEDS ORDERED: PARoxetine 20 MG TAB PO SCH (09:00)
[2018-06-22] MEDS ORDERED: ASPIRIN 81 MG PO SCH (09:00)
[2018-06-22] MEDS ORDERED: LISINOPRIL-HCTZ 10-12.5 MG 1 EACH TAB PO SCH (09:00)
[2018-06-22 15:04] VITALS: BP 121/73; PULSE 86; RESP 16; TEMP 98
--- NOTE | 2018-06-22 15:50 | P.PN ---
Subjective Mr. Marcelino is seen and examined sitting up comfortably in bed. He denies any symptoms of dizziness, palpitations, chest pain, shortness of breath, nausea, vomiting or diaphoresis. He has a permanent pacemaker in place secondary to sick sinus syndrome 10/2017. Pacemaker interrogation reveals no evidence of arrhythmia normally functioning device. Cardiac enzymes negative 3, potassium 4.6, sodium 131, creatinine 0.8, magnesium 1.8. Blood pressure 146/81 heart rate 72 afebrile maintaining oxygen saturation on room air. Echocardiogram obtained reveals mild to moderately impaired left ventricular systolic function with ejection fraction 40-45%, basal inferoseptal wall motion hypokinesia, basal anterolateral hypokinesia mildly dilated left atrium. This is a change from echo obtained in the office 06/16/2018 which showed an EF of 55%. Objective - Vital Signs Vital signs: Vital Signs Temp 98.2 F 06/22/18 07:00 Pulse 72 06/22/18 07:00 Resp 18 06/22/18 07:00 BP 146/81 06/22/18 07:00 Pulse Ox 94 L 06/22/18 07:00 Intake & Output 06/21/18 06/22/18 06/22/18 18:59 06:59 18:59 Intake Total 1075 300 Output Total 1500 Balance -425 300 Weight 63.7 kg Intake: IV 975 Sodium Chloride 0.9% 1, 975 000 ml @ 75 mls/hr IV . [id number] BECKY Rx#:[id number] Intake, IV Titration 100 Amount Magnesium Sulfate-D5w Pmx 100 1 gm In Dextrose/Water 1 100ml.bag @ 100 mls/hr IVPB Q1H BECKY Rx#: [id number] Oral 300 Output: Urine 1500 Other: Voiding Method Urinal Urinal Urinal # Voids 0 2 - Exam GENERAL: Well-appearing, well-nourished and in no acute distress. NECK: Supple without JVD or thyromegaly. LUNGS: Breath sounds clear to auscultation bilaterally. Respiration equal and unlabored. No wheezes, rales or rhonchi. HEART: Regular rate and rhythm without murmurs, rubs or gallops. S1 and S2 heard. EXTREMITIES: Normal range of motion, no edema. No clubbing or cyanosis. Peripheral pulses intact. - Labs CBC & Chem 7: 06/21/18 03:31 06/22/18 07:57 Labs: Abnormal Lab Results - Last 24 Hours (Table) 06/21/18 06/22/18 Range/Units 03:31 07:57 Sodium 131 L (137-145) mmol/L Osmolality 257 L (280-301) mosm/kg Assessment and Plan Assessment: ASSESSMENT Syncopal episode with changes in LV systolic function from recent echo obtained in the office. Hypertension Dyslipidemia History of sick sinus syndrome s/p permanent pacemaker implantation Chronic nicotine dependence Alcohol abuse PLAN Due to change in LV systolic function, EKG abnormalities and syncopal event we recommend he undergo coronary angiography with his primary union carpenter Dr. Maldonado. This has been discussed in detail with the patient. I have discussed the risks, benefits and alternative therapies for the above-mentioned procedure and for both sedation/analgesia as well as necessary blood product administration, if indicated, as they pertain to this patient. The patient has indicated understanding of the risks discussed. He declines to move forward with the procedure at this time. Risks of leaving the hospital without further investigation with heart cath explained to him at great length and he is adament he is not having the procedure and leaving the hospital immediately. I have asked the nurse to contact Dr. Simpson and advise him of the situation. The above impression and plan of care have been discussed and directed by the signing physician. Tatianna Pinon, nurse practitioner, acting as scribe for signing physician.
--- NOTE | 2018-06-23 06:51 | DS ---
DISCHARGE SUMMARY DATE OF ADMISSION: 06/20/2018 DATE LEFT AGAINST MEDICAL ADVICE: 06/22/2018. FINAL DIAGNOSES: 1. Syncope, felt to be from hypotension secondary to diuretics and IVAN inhibitor been taking in the morning. 2. Permanent pacemaker, it was checked and it was okay. 3. 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 4. Coronary artery disease, prior history myocardial infarction x2. 5. Primary osteoarthritis. 6. Anxiety, depression, not otherwise specified. 7. Hyperlipidemia. 8. Abnormal 2D echo. HOSPITAL COURSE: This patient presented with episode of passing out. The patient was found to be hypotensive. Does take diuretic and IVAN inhibitor dose in the morning. Dose of IVAN inhibitor was adjusted. A 2D echocardiogram showed multiple wall motion abnormality seen by Cardiology, Dr. Delvalle. The patient was recommended to have a cardiac catheterization, but the patient did want to stay and wanted to leave AMA and did actually eventually do so. Also patient had hyponatremia. Sodium was down to 124 with serum osmolality was down. The patient responded well to saline and salt tablets. Sodium had come up to 131. Today, I did speak to the patient, but he wanted to go home. ON EXAMINATION: LUNGS: Slightly decreased breath sounds. CARDIOVASCULAR: First and second sounds normal. CONSULTATION: Dr. Delvalle from Cardiology and Dr. Duran from Neurology. The patient's EEG did not show any seizure activity. Carotid Doppler did not show any critical stenosis. CT scan of the brain showed chronic changes. DISCHARGE MEDICATIONS: Patient has left AGAINST MEDICAL ADVICE; hence, medications could not be finalized. MMODL / IJN: [id number] /
== END 2018-06-22 15:39 | disposition left against medical advice (07) | DRG 312 ==
LOC: EC 19:58 → 6ICU 21:58 → 4MS4W 06-21 21:09
PROVIDERS: ADMIT Hospitalist; ATTEND Hospitalist
DX: I95.2 Hypotension due to drugs (principal); E87.1 Hypo-osmolality and hyponatremia; T46.4X5A Adverse effect of angiotensin-converting-enzyme inhibitors, initial encounter; R40.2142 Coma scale, eyes open, spontaneous, at arrival to emergency department; R40.2362 Coma scale, best motor response, obeys commands, at arrival to emergency department; R40.2252 Coma scale, best verbal response, oriented, at arrival to emergency department; Z53.21 Procedure and treatment not carried out due to patient leaving prior to being seen by health care provider; E03.9 Hypothyroidism, unspecified; E78.5 Hyperlipidemia, unspecified; F10.10 Alcohol abuse, uncomplicated; F17.210 Nicotine dependence, cigarettes, uncomplicated; F32.9 Major depressive disorder, single episode, unspecified; F41.9 Anxiety disorder, unspecified; I10 Essential (primary) hypertension; I25.10 Atherosclerotic heart disease of native coronary artery without angina pectoris; I25.2 Old myocardial infarction; M19.91 Primary osteoarthritis, unspecified site; Z79.82 Long term (current) use of aspirin; Z79.83 Long term (current) use of bisphosphonates; Z79.899 Other long term (current) drug therapy; Z85.828 Personal history of other malignant neoplasm of skin; Z95.0 Presence of cardiac pacemaker; Z79.890 Hormone replacement therapy; Z88.5 Allergy status to narcotic agent; Z88.8 Allergy status to other drugs, medicaments and biological substances
CPT/HCPCS: 36415; 70450; 71046; 80048; 80053; 80061; 81003; 82550; 82553; 82570; 83735; 83930; 83935; 84100; 84133; 84300; 84484; 85025; 85610; 85730; 93005; 93306; 93880; 95819; 99285

== ENCOUNTER 2018-06-29 12:36 | Day surgery (SDC) | payer MEDICARE, OTHER ==
[2018-06-23 17:20] VITALS: BMI 23.5
[2018-06-29] MEDS ORDERED: ASPIRIN 325 MG TAB ONE (12:44)
[2018-06-29] MEDS ORDERED: SODIUM CHLORIDE 0.9% 1,000 ML IV ONE (13:08)
[2018-06-29] MEDS ORDERED: MIDAZOLAM 2 MG/2 ML VIAL ONE (13:25)
[2018-06-29] MEDS ORDERED: fentaNYL (PF) 50 MCG/ML 2 ML AMP ONE (14:03)
[2018-06-29] MEDS ORDERED: LIDOCAINE 2% SYG (PF) 100 MG/5 ML MISCELLANE ONE (14:10)
[2018-06-29] MEDS ORDERED: MIDAZOLAM 2 MG/2 ML VIAL IVP ONE (14:10)
[2018-06-29] MEDS ORDERED: fentaNYL (PF) 50 MCG/ML 2 ML AMP IVP ONE (14:15)
[2018-06-29] MEDS ORDERED: IOPAMIDOL-370 125ML BTL INJ ONE (14:17)
[2018-06-29] MEDS ORDERED: RX INFO: IV CONTRAST WAS GIVEN 1 EACH MISC MISCELLANE PRN (14:31)
[2018-06-29] MEDS ORDERED: valACYclovir 500 MG TAB PO PRN (14:34)
[2018-06-29] MEDS ORDERED: LORazepam 1 MG TAB PO PRN (14:37)
[2018-06-29] MEDS ORDERED: SODIUM CHLORIDE 0.9% 1,000 ML IV SCH (14:45)
[2018-06-29] MEDS ORDERED: NON-FORMULARY DRUG (Alendronate Sodium [Fosamax] 70 MG) PO SCH (14:45)
[2018-06-29] MEDS ORDERED: LISINOPRIL 10 MG TAB PO SCH (15:38)
[2018-06-29] MEDS ORDERED: LISINOPRIL 10 MG TAB PO STA (15:41)
--- NOTE | 2018-06-29 16:39 | CC ---
CARDIAC CATHETERIZATION REPORT Mr. Marcelino was recently admitted to the hospital with syncope. This patient has a history of permanent pacemaker. Patient was hyponatremic most likely cause was probably vasovagal syncope. EKG showed some T-wave inversions in the anterior lateral leads. In view of that, the patient was recommended to have a cardiac catheterization to rule out any definite underlying significant coronary artery disease. PROCEDURE: The right groin was prepped and draped in the usual manner and the skin was infiltrated with 2% Xylocaine. The right femoral artery was entered using Seldinger technique. A #6- Portuguese sheath was placed in. Selective coronary angiography was then performed in multiple projections. Left main coronary artery is normally patent. LAD is a good caliber blood vessel and gives rise to a good size diagonal branch. LAD and its branches are normal. Circumflex coronary artery is a good caliber blood vessel and gives rise to good size high obtuse marginal branch. Circumflex and its branches are normal. Right coronary artery is normal. FINAL IMPRESSION: This study reveals minimal coronary artery disease with irregularity noted in the circumflex and LAD. RECOMMENDATIONS: Medical treatment. MMODL / IJN: [id number] /
[2018-06-29] MEDS: oxyCODONE-APAP 10-325MG 1 EACH TAB PO PRN ×2 (17:34→21:13)
[2018-06-29] MEDS: GABAPENTIN 100 MG CAP PO SCH ×2 (18:23→20:19)
[2018-06-29] MEDS: DICYCLOMINE 10 MG CAP PO SCH ×3 (18:23→20:20)
[2018-06-29] MEDS: DIPHENOX-ATROP 2.5-0.025 MG 1 EACH TAB PO SCH ×2 (18:24→20:20)
[2018-06-29 19:27] VITALS: RESP 18
[2018-06-29] MEDS ORDERED: NORTRIPTYLINE 25 MG CAP PO SCH (21:00)
[2018-06-29] MEDS ORDERED: ATORVASTATIN 80 MG TAB PO SCH (21:00)
[2018-06-30 06:45] LABS: Anion Gap 4 mmol/L; Blood Urea Nitrogen 10 mg/dL (9-20); Carbon Dioxide 28 mmol/L (22-30); Chloride 102 mmol/L (98-107); Glucose 90 mg/dL (74-99); Potassium 4.2 mmol/L (3.5-5.1); Sodium 134 mmol/L (137-145)
[2018-06-30] MEDS ORDERED: PANTOPRAZOLE 40 MG TABLET PO SCH (07:30)
[2018-06-30 07:58] VITALS: BP 165/73; PULSE 51; TEMP 98.3
[2018-06-30] MEDS: ASPIRIN 81 MG PO SCH ×2 (08:39→08:55)
[2018-06-30] MEDS: LEVOTHYROXINE 25 MCG TAB PO SCH ×2 (08:39→08:55)
[2018-06-30] MEDS: GABAPENTIN 100 MG CAP PO SCH ×2 (08:39→08:55)
[2018-06-30] MEDS: DIPHENOX-ATROP 2.5-0.025 MG 1 EACH TAB PO SCH (08:53)
[2018-06-30] MEDS ORDERED: LORATADINE 10 MG TAB PO SCH (09:00)
[2018-06-30] MEDS ORDERED: PARoxetine 20 MG TAB PO SCH (09:00)
[2018-06-30] MEDS ORDERED: LISINOPRIL 10 MG TAB PO SCH ×2 (09:00)
[2018-06-30 10:38] LABS: Basophils # (A) 0.1 k/uL (0-0.2); Basophils % (A) 1 %; Eosinophils # (A) 0.5 k/uL (0-0.7); Eosinophils % (A) 8 %; HGB 13.1 gm/dL (13.0-17.5); Lymphocytes # (A) 1.5 k/uL (1.0-4.8); Lymphocytes % (A) 24 %; MCH 33.3 pg (25.0-35.0); MCHC 32.9 g/dL (31.0-37.0); MCV 101.5 fL (80.0-100.0); Macrocytosis Slight; Monocytes # (A) 0.6 k/uL (0-1.0); Monocytes % (A) 10 %; Neutrophils # (A) 3.6 k/uL (1.3-7.7); Neutrophils % (A) 55 %; Platelet Count 296 k/uL (150-450); RBC 3.94 m/uL (4.30-5.90); RDW 13.3 % (11.5-15.5); WBC 6.5 k/uL (3.8-10.6)
--- NOTE | 2018-06-30 12:54 | P.DS ---
Providers Attending physician: Merrick Yanes Primary care physician: [facility] Course: Mr. Marcelino underwent cardiac catheterization via right femoral artery per Dr. Yanes. Cath revealed left main coronary artery patent, LAD could kill and patent, diagonal branch pain, or complex ventricular caliber and patent, good size OM patent. RCA patent. No obstructive disease noted. Medical therapy recommended. He denies symptoms of chest pain, shortness of breath, dizziness or palpitations. Telemetry tracings have been unremarkable. Right groin examined is soft, non-tender, no hematoma with small ecchymosis noted. Peripheral pulses intact. He has been up ambulating without incident. Vital signs stable. Laboratory data reviewed, hemoglobin 13.1, platelets 296, sodium 134, potassium 4.2, creatinine 0.81. Follow-up with Dr. VC Yanes in one week. GENERAL: Well-appearing, well-nourished and in no acute distress. NECK: Supple without JVD or thyromegaly. LUNGS: Breath sounds clear to auscultation bilaterally. Respiration equal and unlabored. No wheezes, rales or rhonchi. HEART: Regular rate and rhythm without murmurs, rubs or gallops. S1 and S2 heard. EXTREMITIES: Normal range of motion, no edema. No clubbing or cyanosis. Peripheral pulses intact. Right groin with no evidence of hematoma, clean, dry and intact. Small area of ecchymosis noted. Plan - Discharge Summary Discharge Rx Participant: No New Discharge Prescriptions: Continue Nitroglycerin Sl Tabs [Nitrostat] 0.4 mg SUBLINGUAL Q5M PRN PRN Reason: Chest Pain Atorvastatin [Lipitor] 80 mg PO HS Lisinopril 30 mg PO DAILY Levothyroxine Sodium [Synthroid] 25 mcg PO DAILY Esomeprazole Magnesium [NexIUM] 40 mg PO DAILY valACYclovir [Valtrex] 500 mg PO DAILY PRN PRN Reason: shingles Loratadine [Claritin] 10 mg PO DAILY Ergocalciferol (Vitamin D2) [Vitamin D2] 50,000 unit PO MO oxyCODONE HCL/ACETAMINOPHEN [Percocet 10-325 mg] 1 tab PO Q4H PRN PRN Reason: Pain Gabapentin [Neurontin] 100 mg PO TID #90 cap PARoxetine HCL 40 mg PO DAILY Nortriptyline [Pamelor] 25 mg PO HS Diphenoxylate HCl/Atropine [Lomotil 2.5-0.025 mg Tablet] 2 tab PO QID Dicyclomine HCl 10 mg PO TID Aspirin [Adult Low Dose Aspirin EC] 81 mg PO DAILY Alendronate Sodium [Fosamax] 70 mg PO TU Discharge Medication List Nitroglycerin Sl Tabs [Nitrostat] 0.4 mg SUBLINGUAL Q5M PRN 03/27/14 [History] Atorvastatin [Lipitor] 80 mg PO HS 09/20/14 [History] Esomeprazole Magnesium [NexIUM] 40 mg PO DAILY 01/22/17 [History] Levothyroxine Sodium [Synthroid] 25 mcg PO DAILY 01/22/17 [History] Lisinopril 30 mg PO DAILY 01/22/17 [History] Loratadine [Claritin] 10 mg PO DAILY 07/06/17 [History] valACYclovir [Valtrex] 500 mg PO DAILY PRN 07/06/17 [History] Ergocalciferol (Vitamin D2) [Vitamin D2] 50,000 unit PO MO 07/15/17 [History] oxyCODONE HCL/ACETAMINOPHEN [Percocet 10-325 mg] 1 tab PO Q4H PRN 07/16/17 [ History] Gabapentin [Neurontin] 100 mg PO TID #90 cap 06/10/18 [Rx] Alendronate Sodium [Fosamax] 70 mg PO TU 06/21/18 [History] Aspirin [Adult Low Dose Aspirin EC] 81 mg PO DAILY 06/21/18 [History] Dicyclomine HCl 10 mg PO TID 06/21/18 [History] Diphenoxylate HCl/Atropine [Lomotil 2.5-0.025 mg Tablet] 2 tab PO QID 06/21/18 [ History] Nortriptyline [Pamelor] 25 mg PO HS 06/21/18 [History] PARoxetine HCL 40 mg PO DAILY 06/21/18 [History] Follow up Appointment(s)/Referral(s): Merrick Yanes MD [STAFF PHYSICIAN] - 07/05/18 3:15 pm (APPOINTMENT MADE ON June @ 3:15PM) Patient Instructions/Handouts: *Surgery [facility] - After Heart Catheterization - Adaptive Physical Educator Instructions Activity/Diet/Wound Care/Special Instructions: *NO LIFTING, PUSHING, OR PULLING ANYTHING OVER 10 POUNDS FOR 5 DAYS. *NO DRIVING FOR 3 DAYS. *YOU CAN SHOWER TOMORROW BUT DO NOT SUBMERSE YOUR PUNCTURE SITE IN WATER TO PREVENT INFECTION. THIS MEANS NOT TUB BATHS, POOLS, HOT TUBS...ETC. *ANY SIGNS OF BLEEDING COME TO THE [facility]AREST [facility] AND GET YOUR PUNCTURE SITE LOOKED AT - DO NOT DRIVE YOURSELF! EITHER CALL EMS OR HAVE SOMEONE BRING YOU. Discharge Disposition: HOME SELF-CARE
[2018-07-05] MEDS ORDERED: ERGOCALCIFEROL 50,000 UNIT CAP PO SCH (09:00)
== END 2018-06-30 10:08 | disposition home or self-care (01) ==
LOC: CATHCVL 12:36 → 3OBS 15:45 → CATHCVL 06-30 10:08
PROVIDERS: ATTEND Internal Medicine Cardiovascular Disease
DX: I25.10 Atherosclerotic heart disease of native coronary artery without angina pectoris (principal); I10 Essential (primary) hypertension; Z87.891 Personal history of nicotine dependence; E78.5 Hyperlipidemia, unspecified; Z95.0 Presence of cardiac pacemaker; Z79.890 Hormone replacement therapy; Z79.899 Other long term (current) drug therapy
CPT/HCPCS: 93458; 80048; 85025; C1769 ×2; C1894; J2250; J2001; J3010; Q9967

== ENCOUNTER → 2018-12-10 | Outpatient (CLI) | payer MEDICARE, OTHER | LOC: LABWHC1 12:29 | PROVIDERS: ATTEND Ophthalmology Ophthalmic Plastic and Reconstructive Surgery | DX: H53.2 Diplopia (principal) | CPT/HCPCS: 36415; 83519 ==

== ENCOUNTER → 2018-12-28 | Day surgery (SDC) | payer MEDICARE, OTHER ==
[2018-12-24 09:06] VITALS: BMI 25.2
[~2018-12-28] MED LIST changes: +IOPAMIDOL-250 50ML BTL IV ONE; +IV FLUID CONTINUATION 1,000 ML IV ONE; -LACTATED RINGERS 1,000 ML IV SCH; -LIDOCAINE 1% 20 ML VIAL (10MG/ML) FOR IV START INTRADERMA PRN; +SODIUM CHLORIDE 0.9% 1,000 ML IV SCH
[2018-12-28 06:39] VITALS: BP 162/84; PULSE 57; RESP 18; TEMP 98.1
--- NOTE | 2018-12-28 17:04 | P.PCN ---
Preoperative Diagnosis: Diagnosis High RV pacing percentage mild cardio myopathy likely from RV pacing Recurrent dizzy spells No ventricular arrhythmias noted Cinefluoroscopy the leads revealed a screw-in lead in the right atrial appendage and in the right ventricle no fractures or breaks Left upper extremity venogram 50 mL IV dye injected in the left upper extremity. Patent left subclavian and axillary as well as the innominate SVC
--- NOTE | 2018-12-28 17:06 | P.PCN ---
Preoperative Diagnosis: Diagnosis Recurrent dizzy spells and presyncope Twelve-lead ECG shows atrial paced rhythm prolonged NC interval Narrow QRS Tilt table test per protocol Baseline blood pressure 170/89 mmHg Baseline 159 beats a minute patient was tilted upright at an angle of 70 per protocol patient's blood pressure remained elevated heart rate remained in the 50s and 60s No syncope No evidence for dysautonomia No evidence for neurocardiogenic syncope Plan Upgrade to a biventricular device with physiologic septal pacing
== END | disposition home or self-care (01) ==
LOC: CATHEP 06:02
PROVIDERS: ATTEND Internal Medicine Clinical Cardiac Electrophysiology
DX: R55 Syncope and collapse (principal); R42 Dizziness and giddiness; I42.9 Cardiomyopathy, unspecified; Z88.5 Allergy status to narcotic agent
CPT/HCPCS: 36005; 93660; 75820; 76000; Q9966

== ENCOUNTER → 2019-01-29 | Outpatient (CLI) | payer MEDICARE, OTHER ==
[2019-01-29 11:45] LABS: MCH 34.6 pg (25.0-35.0); MCV 101.7 fL (80.0-100.0); Macrocytosis Slight; Mean Platelet Volume 6.4; Platelet Count 292 k/uL (150-450); RBC 4.62 m/uL (4.30-5.90); RDW 13.9 % (11.5-15.5); WBC 5.9 k/uL (3.8-10.6)
[2019-01-29 11:55] LABS: Anion Gap 10 mmol/L; Blood Urea Nitrogen 11 mg/dL (9-20); Carbon Dioxide 24 mmol/L (22-30); Chloride 86 mmol/L (98-107); Glucose 93 mg/dL (74-99); Sodium 120 mmol/L (137-145)
== END ==
LOC: LABPAT 11:06
PROVIDERS: ATTEND Internal Medicine Clinical Cardiac Electrophysiology
DX: Z01.812 Encounter for preprocedural laboratory examination (principal); I48.0 Paroxysmal atrial fibrillation; R55 Syncope and collapse
CPT/HCPCS: 36415; 80051; 82565; 82947; 84520; 85027

== ENCOUNTER 2019-02-01 13:29 | Day surgery (SDC) | payer MEDICARE, OTHER ==
[~2019-02-01 13:29] MED LIST changes: +CLINDAMYCIN 600 MG in SODIUM CHLORIDE 0.9% IRRIGATIO 250 ML IRRIGATION ONE; +CLINDAMYCIN 900 MG in DEXTROSE 5% IN WATER 50 ML IVPB ONE; -IOPAMIDOL-250 50ML BTL IV ONE; -IV FLUID CONTINUATION 1,000 ML IV ONE
[2019-02-01] MEDS ORDERED: SODIUM CHLORIDE 0.9% 1,000 ML IV ONE (14:00)
[2019-02-01] MEDS ORDERED: SODIUM CHLORIDE 0.9% 500 ML 500 ML IV ONE (14:20)
[2019-02-01] MEDS ORDERED: ALPRAZolam 0.25 MG TAB ONE (14:45)
[2019-02-01] MEDS: MIDAZOLAM 2 MG/2 ML VIAL IVP ONE ×2 (14:54→15:22)
[2019-02-01] MEDS ORDERED: VANCOMYCIN 2,000 MG in SODIUM CHLORIDE 0.9% 500 ML 500 ML IVPB ONE (16:15)
[2019-02-01] MEDS ORDERED: PROPOFOL 10 MG/ML 20 ML VIAL IV ONE (16:23)
[2019-02-01] MEDS ORDERED: MIDAZOLAM 2 MG/2 ML VIAL ONE (16:23)
[2019-02-01] MEDS ORDERED: fentaNYL (PF) 50 MCG/ML 2 ML AMP ONE (16:23)
[2019-02-01] MEDS ORDERED: VANCOMYCIN 1,000 MG VIAL ONE (16:23)
[2019-02-01] MEDS ORDERED: diphenhydrAMINE 50 MG/ML 1 ML VIAL ONE (16:23)
[2019-02-01] MEDS ORDERED: CLINDAMYCIN 150 MG/ML 4 ML VIAL ONE (16:23)
[2019-02-01] MEDS ORDERED: VANCOMYCIN 1,000 MG in SODIUM CHLORIDE 0.9% 250 ML IVPB ONE (16:45)
[2019-02-01] MEDS ORDERED: LIDOCAINE 1% INJ 10MG/ML (20 ML MDV) ONE ×2 (16:50)
[2019-02-01] MEDS ORDERED: LIDOCAINE 1% INJ 10MG/ML (20 ML MDV) SQ ONE (17:19)
[2019-02-01] MEDS ORDERED: HYDROcodone/APAP 5-325MG 1 EACH TAB PO PRN (18:29)
[2019-02-01] MEDS ORDERED: ACETAMINOPHEN TAB 325 MG TAB PO PRN (18:29)
--- NOTE | 2019-02-01 18:41 | P.PRLE ---
RE: Lemuel Wood Dear Jordana Mr. Marcelino was seen in Electrophysiology follow-up. He is a 73-year-old gentleman who underwent a standard dual-chamber pacemaker implant for complete heart block and subsequently developed RV pacing induced cardiomyopathy. Right ventricle pacing especially if greater than 20-40%, usually results in a progressive cardio myopathy. Both His bundle pacing as well as biventricular pacing with an LV-RV lead system can prevent this situation Today he was brought in for an upgrade to a His bundle pacing system The His bundle lead was screwed in the His bundle with excellent thresholds. Now he will be pacing the His bundle preferentially, over RV pacing. This results in a narrow QRS, identical to the intrinsic QRS, since electrical signals go down the right and left bundle simultaneously once the His bundle is stimulated.. He will see Dr. Yanes within the next 3 months and we will reassess his LV function and hopefully his LV function with improved Thank you for entrusting me with the care of the patient Warm regards Sincerely Rajesh Fink
[2019-02-01] MEDS ORDERED: ACETAMINOPHEN IV (For NPO) 1,000 MG in EMPTY BAG 1 BAG IVPB ONE (19:00)
--- NOTE | 2019-02-01 20:40 | PCN ---
PROCEDURE NOTE Mr. Marcelino is a 73-year-old male patient with AV block who underwent a dual-chamber pacemaker sometime back. He developed RV pacing-induced cardiomyopathy. His ejection fraction is below 50%. He was brought in for an upgrade to a biventricular pacemaker. Physiologic pacing was considered. The patient was brought to the EP lab in a fasting state. Written informed consent was obtained prior to the procedure. The left shoulder area was prepped and draped as per protocol. Lidocaine 1% was used for local anesthesia. An incision was made directly over the previous surgical site and carried down to the level of the generator. The chronic generator was removed at the end of the procedure. Through the procedure backup pacing was performed via the old generator. The explanted generator was a [employer], model #[id number], serial #[id number]. This was originally implanted in October of 2017. Subsequently the patient developed RV pacing-induced cardiomyopathy. Axillary vein access was obtained. The sheath was placed in the left subclavian vein. Via this, a His bundle sheath and a His bundle lead were placed. Physiologic septal pacing was performed. The [employer] lead model #3830, serial #[id number] was screwed in the His bundle area. A large His bundle signal was noted. Non-selective pacing was noted until 3 V at 1 millisecond, following which selective pacing was noted with loss of capture at 0.5 V at 1 millisecond. The sheath was removed. The lead was secured to the underlying pectoralis muscle. The atrial RV and the new lead were connected to the biventricular pacemaker. This was programmed to DDDR 50-130 bpm with an LV/RV offset of 80 milliseconds. LV was programmed to 2 V at 1 millisecond. The new generator implanted was a [employer] biventricular pacemaker, model #YP9206, serial #[id number]. The chronic atrial lead was interrogated. This was a [employer], model #1882TC, 46 cm in length, and serial #[id number]. Pacing impedance 360 ohms, pacing threshold 1 V at 0.5 milliseconds. The chronic RV lead was a [employer], model #2088TC, 52 cm in length, and serial #[id number]. R-waves 5.6 mV. Pacing impedance 510 ohms. Pacing threshold 0.6 V at 0.5 milliseconds. This lead been originally placed in the RV inflow area. The patient tolerated the procedure well without any acute complications. PLAN: IV antibiotics and pacemaker interrogation tomorrow. DAWSON / GOOD: [id number] /
[2019-02-01 20:41] VITALS: BMI 24.5
[2019-02-01] MEDS: CLINDAMYCIN 900 MG in DEXTROSE 5% IN WATER 50 ML IVPB SCH ×2 (22:33)
[2019-02-02] MEDS: CLINDAMYCIN 900 MG in DEXTROSE 5% IN WATER 50 ML IVPB SCH ×6 (04:39→15:08)
[2019-02-02] MEDS ORDERED: valACYclovir 500 MG TAB PO PRN (08:05)
[2019-02-02] MEDS ORDERED: oxyCODONE-APAP 10-325MG 1 EACH TAB PO PRN (08:05)
[2019-02-02] MEDS ORDERED: NITROGLYCERIN SL TABS 0.4 MG TAB SUBLINGUAL PRN (08:05)
--- NOTE | 2019-02-02 08:12 | P.DS ---
Providers Attending physician: Rajesh Fink Primary care physician: Mario [facility] Course: Patient is doing well. He denies any chest discomfort dizziness lightheadedness palpitations. He is resting comfortably. He is His bundle paced on telemetry Vitals are stable blood pressure 138/68 mmHg pulse rate in the 50s and 60s, afebrile, normal respirations Normal heart sounds normal S1 normal S2 no murmurs no gallop or rub Normal breath sounds no rhonchi no crackles Abdomen soft nontender Extremities warm no edema Impression Significant AV node disease with bradycardia status post dual-chamber pacemaker about 2 years back Gradual development of cardio myopathy secondary to RV pacing Status post upgrade to a biventricular pacemaker with His bundle pacing yesterday Plan Device interrogation chest x-ray and IV antibiotics and discharge home today Add Toprol-XL 25 mg by mouth daily continue other cardiac medications and follow-up in the device clinic in 5 days and follow-up with Dr. Yanes in about 2 months Reassessment of LV function in 2 months post physiologic septal pacing Plan - Discharge Summary Discharge Rx Participant: Yes New Discharge Prescriptions: New Metoprolol Succinate [Toprol XL] 25 mg PO DAILY #90 tab Continue Nitroglycerin Sl Tabs [Nitrostat] 0.4 mg SUBLINGUAL Q5M PRN PRN Reason: Chest Pain Atorvastatin [Lipitor] 80 mg PO HS Lisinopril 30 mg PO DAILY Levothyroxine Sodium [Synthroid] 25 mcg PO DAILY Esomeprazole Magnesium [NexIUM] 40 mg PO DAILY valACYclovir [Valtrex] 500 mg PO DAILY PRN PRN Reason: shingles Loratadine [Claritin] 10 mg PO DAILY Ergocalciferol (Vitamin D2) [Vitamin D2] 50,000 unit PO MO oxyCODONE HCL/ACETAMINOPHEN [Percocet 10-325 mg] 1 tab PO Q4H PRN PRN Reason: Pain Gabapentin [Neurontin] 100 mg PO TID #90 cap PARoxetine HCL 40 mg PO DAILY Nortriptyline [Pamelor] 25 mg PO HS Diphenoxylate HCl/Atropine [Lomotil 2.5-0.025 mg Tablet] 2 tab PO QID Aspirin [Adult Low Dose Aspirin EC] 81 mg PO DAILY Alendronate Sodium [Fosamax] 70 mg PO TU Discharge Medication List Nitroglycerin Sl Tabs [Nitrostat] 0.4 mg SUBLINGUAL Q5M PRN 03/27/14 [History] Atorvastatin [Lipitor] 80 mg PO HS 09/20/14 [History] Esomeprazole Magnesium [NexIUM] 40 mg PO DAILY 01/22/17 [History] Levothyroxine Sodium [Synthroid] 25 mcg PO DAILY 01/22/17 [History] Lisinopril 30 mg PO DAILY 01/22/17 [History] Loratadine [Claritin] 10 mg PO DAILY 07/06/17 [History] valACYclovir [Valtrex] 500 mg PO DAILY PRN 07/06/17 [History] Ergocalciferol (Vitamin D2) [Vitamin D2] 50,000 unit PO MO 07/15/17 [History] oxyCODONE HCL/ACETAMINOPHEN [Percocet 10-325 mg] 1 tab PO Q4H PRN 07/16/17 [History] Gabapentin [Neurontin] 100 mg PO TID #90 cap 06/10/18 [Rx] Alendronate Sodium [Fosamax] 70 mg PO TU 06/21/18 [History] Aspirin [Adult Low Dose Aspirin EC] 81 mg PO DAILY 06/21/18 [History] Diphenoxylate HCl/Atropine [Lomotil 2.5-0.025 mg Tablet] 2 tab PO QID 06/21/18 [History] Nortriptyline [Pamelor] 25 mg PO HS 06/21/18 [History] PARoxetine HCL 40 mg PO DAILY 06/21/18 [History] Metoprolol Succinate [Toprol XL] 25 mg PO DAILY #90 tab 02/02/19 [Rx] Follow up Appointment(s)/Referral(s): Merrick Yanes MD [STAFF PHYSICIAN] - 1 Week Activity/Diet/Wound Care/Special Instructions: PATIENT EDUCATION MATERIAL Instructions following a heart rhythm device implant. 1. Keep dressing DRY for 5 DAYS. You may cover the area with Saran or Cling Wrap, prior to a shower. 2. The dressing will be removed in the Device Clinic at [facility]. Absorbable sutures were used to close the wound. 3. Avoid raising the left arm above the shoulder level. 4 week restriction 4. Avoid arm movements, like backscratching, rubbing the head, or pulling on a cord. 4 weeks restriction 5. Gentle range of motion movements of the shoulder, closest to the incision should be performed to avoid a frozen shoulder. (Pendulum exercises of the shoulder) 6. The opposite arm may be used freely. 7. Avoid driving for 7 days. 8. Avoid activities such as golfing, swimming, weed whacking, lifting more than 10 pounds weight, bowling, gymnastics and weight training/lifting. (6 weeks restriction) 9. Activities such as wood chopping with an axe, pull-ups in the gymnasium, power lifting, arc-welding, being close to home induction cooktops will always be a problem. 10. Arm sling is only a reminder not to raise the arm above the head. You do not need to keep the arm completely immobilized. Your free to move the arm and use it and for normal activities. In case of any problems, please call [facility], Babatunde Pugh, @ [phone], Attention: Device Clinic Device clinic follow-up in 5 days Follow-up with primary water filterer in 2-3 months Metoprolol succinate 25 mg by mouth daily added to current regimen continue all other medications Discharge Disposition: HOME SELF-CARE
[2019-02-02] MEDS ORDERED: LEVOTHYROXINE 25 MCG TAB PO ONE (08:30)
--- NOTE | 2019-02-02 08:54 | XR ---
EXAMINATION TYPE: XR chest 2V DATE OF EXAM: 02/02/2019 COMPARISON: 06/20/2018 HISTORY: Lead placement check. TECHNIQUE: Frontal and lateral views of the chest are obtained. FINDINGS: There is no focal air space opacity, pleural effusion, or pneumothorax seen. Pulmonary hyp erinflation and slight flattening of the diaphragms relates underlying COPD. Atelectasis is seen near the costophrenic angles. Partial visualization of a cervical fusion device. There is a 3-lead cardia c device. SA blessing lead and ventricular leads are appropriately placed. No postprocedural pneumothora x is seen. The osseous structures are intact. IMPRESSION: Interval insertion of a multilead left-sided cardiac device. No postprocedural pneumotho rax.
[2019-02-02 08:59] VITALS: RESP 18
[2019-02-02] MEDS ORDERED: LISINOPRIL 10 MG TAB PO SCH (09:00)
[2019-02-02] MEDS ORDERED: GABAPENTIN 100 MG CAP PO SCH (09:00)
[2019-02-02] MEDS ORDERED: PARoxetine 20 MG TAB PO SCH (09:00)
[2019-02-02] MEDS ORDERED: LORATADINE 10 MG TAB PO SCH (09:00)
[2019-02-02] MEDS ORDERED: PANTOPRAZOLE 40 MG TABLET PO SCH (09:00)
[2019-02-02] MEDS ORDERED: ASPIRIN 81 MG PO SCH (09:00)
[2019-02-02] MEDS: DIPHENOX-ATROP 2.5-0.025 MG 1 EACH TAB PO SCH ×2 (09:05→15:08)
[2019-02-02 15:59] VITALS: BP 156/79; PULSE 49; TEMP 97.6
[2019-02-02] MEDS ORDERED: NORTRIPTYLINE 25 MG CAP PO SCH (21:00)
[2019-02-02] MEDS ORDERED: ATORVASTATIN 80 MG TAB PO SCH (21:00)
[2019-02-03] MEDS ORDERED: LEVOTHYROXINE 25 MCG TAB PO SCH (06:30)
[2019-02-07] MEDS ORDERED: ERGOCALCIFEROL 50,000 UNIT CAP PO SCH (09:00)
[2019-02-08] MEDS ORDERED: NON-FORMULARY DRUG (Alendronate Sodium [Fosamax] 70 MG) PO SCH (09:00)
== END 2019-02-02 16:50 | disposition home or self-care (01) ==
LOC: CATHEP 13:29 → 1SOBS 18:10 → CATHEP 02-02 16:50
PROVIDERS: ATTEND Internal Medicine Clinical Cardiac Electrophysiology
DX: I49.5 Sick sinus syndrome (principal); I44.2 Atrioventricular block, complete; I42.0 Dilated cardiomyopathy; I25.10 Atherosclerotic heart disease of native coronary artery without angina pectoris; I10 Essential (primary) hypertension; E78.2 Mixed hyperlipidemia; F17.210 Nicotine dependence, cigarettes, uncomplicated; I25.2 Old myocardial infarction; G43.909 Migraine, unspecified, not intractable, without status migrainosus; E07.9 Disorder of thyroid, unspecified; Z79.82 Long term (current) use of aspirin; Z79.899 Other long term (current) drug therapy; Z79.890 Hormone replacement therapy; Z88.1 Allergy status to other antibiotic agents; Z88.5 Allergy status to narcotic agent
CPT/HCPCS: 33225; 33229; 71046; C1769 ×2; C1892; C1898; C2621; J2250; J3370; J1200; J2001; J3010; J0131; J2704; 33216

== ENCOUNTER 2019-03-03 12:03 | Emergency (ER) | payer MEDICARE, OTHER ==
[2019-03-03] MEDS ORDERED: ONDANSETRON 4 MG/2 ML VIAL IVP STA (12:19)
[2019-03-03] MEDS ORDERED: HYDROmorphone 0.5 MG/0.5 ML SYRINGE IVP STA ×2 (12:19→15:27)
[2019-03-03] MEDS ORDERED: IPRATROPIUM-ALBUTEROL 3 ML NEB INHALATION STA (12:19)
[2019-03-03 12:52] LABS: Basophils # (A) 0.1 k/uL (0-0.2); Basophils % (A) 1 %; Eosinophils # (A) 0.2 k/uL (0-0.7); Eosinophils % (A) 1 %; HCT 44.3 % (39.0-53.0); Lymphocytes # (A) 1.2 k/uL (1.0-4.8); Lymphocytes % (A) 11 %; MCH 34.9 pg (25.0-35.0); MCHC 33.9 g/dL (31.0-37.0); Macrocytosis Slight; Mean Platelet Volume 7.1; Monocytes # (A) 0.7 k/uL (0-1.0); Monocytes % (A) 6 %; Neutrophils # (A) 9.3 k/uL (1.3-7.7); Neutrophils % (A) 80 %; Platelet Count 366 k/uL (150-450); RDW 14.1 % (11.5-15.5); WBC 11.6 k/uL (3.8-10.6)
[2019-03-03 12:58] LABS: INR 0.9 (<1.2); Partial Thromboplastin Time 24.2 sec (22.0-30.0)
[2019-03-03 13:00] LABS: ALT 30 U/L (21-72); AST 30 U/L (17-59); Albumin 4.3 g/dL (3.5-5.0); Alkaline Phosphatase 102 U/L (38-126); Anion Gap 11 mmol/L; Blood Urea Nitrogen 9 mg/dL (9-20); Calcium 9.5 mg/dL (8.4-10.2); Carbon Dioxide 22 mmol/L (22-30); Chloride 100 mmol/L (98-107); Glucose 94 mg/dL (74-99); Magnesium 1.4 mg/dL (1.6-2.3); Potassium 3.8 mmol/L (3.5-5.1); Sodium 133 mmol/L (137-145); Total Protein 6.9 g/dL (6.3-8.2)
--- NOTE | 2019-03-03 13:17 | ED ---
Fall HPI - General Chief Complaint: Fall Stated Complaint: fall/side pain & SOB Time Seen by Provider: 03/03/19 12:12 Source: patient, RN notes reviewed Mode of arrival: ambulatory Limitations: no limitations - History of Present Illness Initial Comments: 73-year-old male presents emergency Department with chief complaint of fall, right-sided pain, shortness of breath. Patient states that he tripped and fell onto a table on Thursday. He states she's been barely able to move secondary to pain he's had increased cough congestion shortness of breath. Patient has no underlying lung disease but does admit to prior cardiac disease and pacemaker. Patient states pain is right side of his ribs, right side of his abdomen. Patient has noticed some bruising. Denies any head injury no loss conscious. Patient states she's had chills and subjective fever. Denies any extremity injury. - Related Data Home Medications Medication Instructions Recorded Confirmed Nitroglycerin Sl Tabs [Nitrostat] 0.4 mg SUBLINGUAL Q5M PRN 03/27/14 02/01/19 Atorvastatin [Lipitor] 80 mg PO HS 09/20/14 02/01/19 Esomeprazole Magnesium [NexIUM] 40 mg PO DAILY 01/22/17 02/01/19 Levothyroxine Sodium [Synthroid] 25 mcg PO DAILY 01/22/17 02/01/19 Lisinopril 30 mg PO DAILY 01/22/17 02/01/19 Loratadine [Claritin] 10 mg PO DAILY 07/06/17 02/01/19 valACYclovir [Valtrex] 500 mg PO DAILY PRN 07/06/17 02/01/19 Ergocalciferol (Vitamin D2) 50,000 unit PO MO 07/15/17 02/01/19 [Vitamin D2] oxyCODONE HCL/ACETAMINOPHEN 1 tab PO Q4H PRN 07/16/17 02/01/19 [Percocet 10-325 mg] Alendronate Sodium [Fosamax] 70 mg PO TU 06/21/18 02/01/19 Aspirin [Adult Low Dose Aspirin EC] 81 mg PO DAILY 06/21/18 02/01/19 Diphenoxylate HCl/Atropine 2 tab PO QID 06/21/18 02/01/19 [Lomotil 2.5-0.025 mg Tablet] Nortriptyline [Pamelor] 25 mg PO HS 06/21/18 02/01/19 PARoxetine HCL 40 mg PO DAILY 06/21/18 02/01/19 Previous Rx's Medication Instructions Recorded Gabapentin [Neurontin] 100 mg PO TID #90 cap 06/10/18 Metoprolol Succinate [Toprol XL] 25 mg PO DAILY #90 tab 02/02/19 Azithromycin [Zithromax Z-pack] 0 mg PO DIRECTED #1 pack 03/03/19 HYDROcodone/APAP 7.5-325MG [[place] 1 tab PO Q6HR PRN 3 Days #12 tab 03/03/19 7.5-325] Allergies Allergy/AdvReac Type Severity Reaction Status Date / Time cefazolin Allergy Rash/Hives Verified 12/28/18 06:25 cefazolin sodium [From Ancef] Allergy Rash/Hives Verified 12/28/18 06:25 morphine AdvReac Nausea & Verified 12/28/18 06:25 Vomiting Review of Systems ROS Statement: Those systems with pertinent positive or pertinent negative responses have been documented in the HPI. ROS Other: All systems not noted in ROS Statement are negative. Past Medical History Past Medical History: Cancer, Chest Pain / Angina, Hyperlipidemia, Hypertension, Myocardial Infarction ([place]), Osteoarthritis ([place]), Syncope, Thyroid Disorder Additional Past Medical History / Comment(s): [place] X2 ("in my 30's), SKIN CA, pain lower spine and legs, rectal bleeding , irregular heart beat, low sodium, see Dr. Fink's H&P. Last Myocardial Infarction Date:: approx 40 yrs ago History of Any Multi-Drug Resistant Organisms: None Reported Past Surgical History: Back Surgery, Heart Catheterization, Hernia Repair, Orthopedic Surgery, Pacemaker, Tonsillectomy Additional Past Surgical History / Comment(s): LAMINECTOMY & PLACEMENT OF NEUROSTIMULATOR, repositioned them later removed, ana catarats, Past Anesthesia/Blood Transfusion Reactions: Motion Sickness Type of Cardiac Device: Permanent Pacemaker Device Placement Date:: October 2017 Past Psychological History: Anxiety, Depression Smoking Status: Current every day smoker Past Alcohol Use History: None Reported Past Drug Use History: None Reported - Past Family History Mother Family Medical History: Cancer Father Family Medical History: Cancer Brother(s) Family Medical History: Cancer General Exam Limitations: no limitations General appearance: alert, in no apparent distress Head exam: Present: atraumatic, normocephalic, normal inspection Eye exam: Present: normal appearance, PERRL, EOMI. Absent: scleral icterus, conjunctival injection, periorbital swelling ENT exam: Present: normal exam, normal oropharynx, mucous membranes moist, TM's normal bilaterally, normal external ear exam Neck exam: Present: normal inspection, full ROM. Absent: tenderness, meningism us, lymphadenopathy Respiratory exam: Present: wheezes, rales, chest wall tenderness (Moderate right sided with ecchymosis noted). Absent: normal lung sounds bilaterally, res piratory distress, rhonchi, stridor Cardiovascular Exam: Present: regular rate, normal rhythm, normal heart sounds. Absent: systolic murmur, diastolic murmur, rubs, gallop, clicks GI/Abdominal exam: Present: soft, tenderness (Moderate right side with ecchymosis), normal bowel sounds. Absent: distended, guarding, rebound, rigid Back exam: Present: full ROM, tenderness. Absent: CVA tenderness (R), CVA tenderness (L) Neurological exam: Present: alert, oriented X3, CN II-XII intact, reflexes norm al. Absent: motor sensory deficit Skin exam: Present: warm, dry, intact, normal color. Absent: rash Course Vital Signs 03/03/19 03/03/19 03/03/19 12:08 12:30 12:55 Temperature 97.4 F L Pulse Rate 85 56 L 61 Respiratory 22 20 Rate Blood Pressure 185/95 214/93 O2 Sat by Pulse 96 92 L Oximetry 03/03/19 03/03/19 03/03/19 13:06 13:15 14:11 Temperature Pulse Rate 58 L 63 Respiratory 24 18 Rate Blood Pressure 185/94 212/93 187/89 O2 Sat by Pulse 93 L 96 Oximetry Medical Decision Making - Medical Decision Making 73-year-old male presented for a fall. Patient's found to have 3 rib fractures on the right with mild atelectasis. Patient was given pain medication of be discharged on pain meds. Patient was given incentive spirometry. Patient's labwork, remaining CT is unremarkable. - Lab Data Result diagrams: 03/03/19 12:30 03/03/19 12:30 Lab Results 04/11/19 04/11/19 04/11/19 Range/Units 12:30 12:30 12:30 WBC 11.6 H (3.8-10.6) k/uL RBC 4.30 (4.30-5.90) m/uL Hgb 15.0 (13.0-17.5) gm/dL Hct 44.3 (39.0-53.0) % MCV 103.0 H (80.0-100.0) fL MCH 34.9 (25.0-35.0) pg MCHC 33.9 (31.0-37.0) g/dL RDW 14.1 (11.5-15.5) % Plt Count 366 (150-450) k/uL Neutrophils % 80 % Lymphocytes % 11 % Monocytes % 6 % Eosinophils % 1 % Basophils % 1 % Neutrophils # 9.3 H (1.3-7.7) k/uL Lymphocytes # 1.2 (1.0-4.8) k/uL Monocytes # 0.7 (0-1.0) k/uL Eosinophils # 0.2 (0-0.7) k/uL Basophils # 0.1 (0-0.2) k/uL Macrocytosis Slight PT (9.0-12.0) sec INR (<1.2) APTT (22.0-30.0) sec Sodium 133 L (137-145) mmol/L Potassium 3.8 (3.5-5.1) mmol/L Chloride 100 (98-107) mmol/L Carbon Dioxide 22 (22-30) mmol/L Anion Gap 11 mmol/L BUN 9 (9-20) mg/dL Creatinine 0.54 L (0.66-1.25) mg/dL Est GFR (CKD-EPI)AfAm >90 (>60 ml/min/1.73 sqM) Est GFR (CKD-EPI)NonAf >90 (>60 ml/min/1.73 sqM) Glucose 94 (74-99) mg/dL Calcium 9.5 (8.4-10.2) mg/dL Magnesium 1.4 L (1.6-2.3) mg/dL Total Bilirubin 1.0 (0.2-1.3) mg/dL AST 30 (17-59) U/L ALT 30 (21-72) U/L Alkaline Phosphatase 102 (38-126) U/L Troponin I (0.000-0.034) ng/mL NT-Pro-B Natriuret Pep 2450 pg/mL Total Protein 6.9 (6.3-8.2) g/dL Albumin 4.3 (3.5-5.0) g/dL Urine Color Urine Appearance (Clear) Urine pH (5.0-8.0) Ur Specific [place] (1.001-1.035) Urine Protein (Negative) Urine Glucose (UA) (Negative) Urine Ketones (Negative) Urine Blood (Negative) Urine Nitrite (Negative) Urine Bilirubin (Negative) Urine Urobilinogen (<2.0) mg/dL Ur Leukocyte Esterase (Negative) Urine RBC (0-5) /hpf Urine WBC (0-5) /hpf Urine WBC Clumps (None) /hpf Urine Bacteria (None) /hpf Urine Mucus (None) /hpf 03/03/19 03/03/19 03/03/19 Range/Units 12:30 12:30 13:15 WBC (3.8-10.6) k/uL RBC (4.30-5.90) m/uL Hgb (13.0-17.5) gm/dL Hct (39.0-53.0) % MCV (80.0-100.0) fL MCH (25.0-35.0) pg MCHC (31.0-37.0) g/dL RDW (11.5-15.5) % Plt Count (150-450) k/uL Neutrophils % % Lymphocytes % % Monocytes % % Eosinophils % % Basophils % % Neutrophils # (1.3-7.7) k/uL Lymphocytes # (1.0-4.8) k/uL Monocytes # (0-1.0) k/uL Eosinophils # (0-0.7) k/uL Basophils # (0-0.2) k/uL Macrocytosis PT 10.0 (9.0-12.0) sec INR 0.9 (<1.2) APTT 24.2 (22.0-30.0) sec Sodium (137-145) mmol/L Potassium (3.5-5.1) mmol/L Chloride (98-107) mmol/L Carbon Dioxide (22-30) mmol/L Anion Gap mmol/L BUN (9-20) mg/dL Creatinine (0.66-1.25) mg/dL Est GFR (CKD-EPI)AfAm (>60 ml/min/1.73 sqM) Est GFR (CKD-EPI)NonAf (>60 ml/min/1.73 sqM) Glucose (74-99) mg/dL Calcium (8.4-10.2) mg/dL Magnesium (1.6-2.3) mg/dL Total Bilirubin (0.2-1.3) mg/dL AST (17-59) U/L ALT (21-72) U/L Alkaline Phosphatase (38-126) U/L Troponin I <0.012 (0.000-0.034) ng/mL NT-Pro-B Natriuret Pep pg/mL Total Protein (6.3-8.2) g/dL Albumin (3.5-5.0) g/dL Urine Color Yellow Urine Appearance Clear (Clear) Urine pH 6.5 (5.0-8.0) Ur Specific [place] 1.006 (1.001-1.035) Urine Protein Negative (Negative) Urine Glucose (UA) Negative (Negative) Urine Ketones 1+ H (Negative) Urine Blood Small H (Negative) Urine Nitrite Negative (Negative) Urine Bilirubin Negative (Negative) Urine Urobilinogen <2.0 (<2.0) mg/dL Ur Leukocyte Esterase Negative (Negative) Urine RBC 1 (0-5) /hpf Urine WBC 5 (0-5) /hpf Urine WBC Clumps Rare H (None) /hpf Urine Bacteria Rare H (None) /hpf Urine Mucus Rare H (None) /hpf Disposition Clinical Impression: Multiple rib fractures, Fall Disposition: TRANSFER TO PSYCH HOSP/UNIT Condition: Stable Additional Instructions: Please return to the Emergency Department if symptoms worsen or any other concerns. Prescriptions: HYDROcodone/APAP 7.5-325MG [[place] 7.5-325] 1 tab PO Q6HR PRN 3 Days #12 tab PRN Reason: Pain Azithromycin [Zithromax Z-pack] 0 mg PO DIRECTED #1 pack Is patient prescribed a controlled substance at d/c from ED?: Yes When asked, does pt state using other controlled substances?: No If prescribed controlled substance>3 days was MAPS reviewed?: Prescribed <3 Days If opioid is for acute pain is fill amount 7 days or less?: Yes If Rx opioid, was Start Talking consent form obtained?: Yes Referrals: Mario June DO [Primary Care Provider] - 1-2 days Time of Disposition: 15:29
[2019-03-03 13:54] LABS: Appearance,Urine Clear (Clear); Bacteria,Urine Rare /hpf; Bilirubin,Urine Negative (Negative); Blood,Urine Small (Negative); Color,Urine Yellow; Glucose,Urine (UA) Negative (Negative); Ketones,Urine 1+ (Negative); Leukocyte Esterase,Urine Negative (Negative); Mucus,Urine Rare /hpf; Nitrite,Urine Negative (Negative); PH, Urine 6.5 (5.0-8.0); Protein,Urine Negative (Negative); RBC,Urine 1 /hpf (0-5); Specific Gravity,Urine 1.006 (1.001-1.035); Urobilinogen,Urine <2.0 mg/dL (<2.0); WBC,Urine 5 /hpf (0-5)
--- NOTE | 2019-03-03 13:57 | XR ---
EXAMINATION TYPE: XR chest 1V portable DATE OF EXAM: 03/03/2019 COMPARISON: 02/02/2019 HISTORY: Pain TECHNIQUE: Single frontal view of the chest is obtained. FINDINGS: Cardiac device seen and there are subsegmental right lower lobe consolidation. No sizable pneumothorax. Diffuse osteopenia. Postsurgical change cervical spine. IMPRESSION: Right basilar subsegmental atelectasis favored over pneumonia correlate clinically.
--- NOTE | 2019-03-03 14:23 | CT ---
EXAMINATION TYPE: CT ChestAbdPelvis w con DATE OF EXAM: 03/03/2019 INDICATION: Right flank pain post fall COMPARISON: CT abdomen pelvis 07/30/2017 CT DLP: 740 mGycm CONTRAST: Performed without Oral Contrast and with IV Contrast, patient injected with 100 mL of Isovue 300. TECHNIQUE: Axial images at 5 mm thick sections. Reconstructed images in the coronal plane. Delayed images through the kidneys. FINDINGS: CT CHEST: Portion of the thyroid visualized is normal. No suspicious lung nodules or focal infiltrates are present. No enlarged mediastinal or hilar adenopathy is evident. The ascending aorta diameter at the level of the main pulmonary artery is 3.4 cm. The main pulmonary artery diameter at the bifurcation is 2.9 cm. Mild coronary artery calcification is present. CT ABDOMEN: Liver: There is mild fatty infiltration to the liver. Spleen: Normal Pancreas: Normal Adrenal glands: There is thickening of the left adrenal gland. The lateral limb measures 1.4 cm with the body measuring approximately 1.3 cm. Gallbladder: Normal Kidneys: No masses are evident. No hydronephrosis is present. There is a 1.2 cm cyst measuring 11 H [place] unit superior pole left kidney. A superior medial upper pole cyst measures 2.0 cm on the le ft and 6 Hounsfield units. Simple couple smaller cortical renal cysts are present. There is a calcifi cation at the inferior pole without obstruction in the left kidney measuring 0.4 cm. cyst in the post erior lateral right kidney measures 2.1 cm 7 Hounsfield units. Aorta: Vascular calcification is within the aorta. There is an abdominal aortic aneurysm measuring 4 .2 cm in diameter. This terminates at the bifurcation and begins at approximately the level of the ri ght renal artery. Inferior vena cava: Normal. CT PELVIS: Loops of bowel within the abdomen and pelvis are normal. Studies performed without oral contrast limiting bowel evaluation. Fluid-filled small bowel loops are present. Correlate for ileus. Air and f luid is within the colon. Appendix: Normal as visualized. Urinary bladder: Normal. Genitourinary structures: Prostate is prominent Osseous structures: No suspicious lytic or sclerotic lesions. IMPRESSIONS: 1. Abdominal aortic aneurysm measuring 4.2 cm AP. 2. Fluid-filled small bowel. Consider ileus within the differential. 3. Thickening of the adrenal gland. Adrenal adenoma and metastasis could be considered. 4. No suspicious posttraumatic changes right flank. 5. Renal cysts
[2019-03-03 16:07] VITALS: BP 201/99; PULSE 87; RESP 20; TEMP 98.4
== END 2019-03-03 16:07 ==
LOC: EC 12:03
DX: S22.41XA Multiple fractures of ribs, right side, initial encounter for closed fracture (principal); J98.11 Atelectasis; E78.5 Hyperlipidemia, unspecified; I10 Essential (primary) hypertension; I25.2 Old myocardial infarction; E07.9 Disorder of thyroid, unspecified; F41.9 Anxiety disorder, unspecified; F32.9 Major depressive disorder, single episode, unspecified; F17.200 Nicotine dependence, unspecified, uncomplicated; Z79.890 Hormone replacement therapy; Z79.899 Other long term (current) drug therapy; Z79.82 Long term (current) use of aspirin; Z88.1 Allergy status to other antibiotic agents; Z88.5 Allergy status to narcotic agent; Z95.5 Presence of coronary angioplasty implant and graft; Z95.0 Presence of cardiac pacemaker; W01.0XXA Fall on same level from slipping, tripping and stumbling without subsequent striking against object, initial encounter
CPT/HCPCS: 36415; 94640; 93005; 83880; 80053; 83735; 84484; 85025; 85610; 85730; 81001; 71045; 71260; 74177; 99285; 96374; 96375; 96376; J2405; J1170; Q9967

== ENCOUNTER 2019-05-05 12:47 | Observation (INO) | payer MEDICARE, OTHER ==
[2019-05-05] MEDS ORDERED: KETOROLAC 60 MG/2 ML VIAL IVP STA (13:31)
[2019-05-05] MEDS ORDERED: HYDROmorphone 0.5 MG/0.5 ML SYRINGE IVP STA (13:32)
--- NOTE | 2019-05-05 13:35 | ED ---
General Adult HPI - General Chief complaint: Chest Pain Stated complaint: Pain L side Time Seen by Provider: 05/05/19 12:50 Source: patient, family, RN notes reviewed Mode of arrival: wheelchair Limitations: no limitations - History of Present Illness Initial comments: This is a 73-year-old male who presents emergency Department complaining of left-sided rib pain. Patient states started a few days ago but it was severe today. Patient states over the last few months she's had multiple syncopal episodes and was told it was because of his low blood pressure patient has been removed off multiple blood pressure medications and have them adjusted. Patient states she continues to get very lightheaded and fall on occasion. Patient states the last time he felt was probably a week ago. Patient does not remember injuring his ribs. Patient states he did once hit his head but he has no headache no numbness or weakness no neck pain. Patient complains of left-sided rib pain particularly with deep breathing or movement. Patient denies shortness of breath though he states taking a deep breath it does hurt. Patient denies any fever chills. Patient denies any abdominal pain patient denies any leg swelling or calf tenderness. - Related Data Home Medications Medication Instructions Recorded Confirmed Nitroglycerin Sl Tabs [Nitrostat] 0.4 mg SUBLINGUAL Q5M PRN 03/27/14 05/05/19 Atorvastatin [Lipitor] 80 mg PO HS 09/20/14 05/05/19 Esomeprazole Magnesium [NexIUM] 40 mg PO DAILY 01/22/17 05/05/19 Levothyroxine Sodium [Synthroid] 25 mcg PO DAILY 01/22/17 05/05/19 Loratadine [Claritin] 10 mg PO DAILY 07/06/17 05/05/19 valACYclovir [Valtrex] 500 mg PO DAILY PRN 07/06/17 05/05/19 Ergocalciferol (Vitamin D2) 50,000 unit PO MO 07/15/17 05/05/19 [Vitamin D2] oxyCODONE HCL/ACETAMINOPHEN 1 tab PO Q4H PRN 07/16/17 05/05/19 [Percocet 10-325 mg] Alendronate Sodium [Fosamax] 70 mg PO TU 06/21/18 05/05/19 Aspirin [Adult Low Dose Aspirin EC] 81 mg PO DAILY 06/21/18 05/05/19 Diphenoxylate HCl/Atropine 2 tab PO QID 06/21/18 05/05/19 [Lomotil 2.5-0.025 mg Tablet] Nortriptyline [Pamelor] 25 mg PO HS 06/21/18 05/05/19 PARoxetine HCL 40 mg PO DAILY 06/21/18 05/05/19 Metoprolol Succinate [Toprol XL] 12.5 mg PO HS 05/05/19 05/05/19 Previous Rx's Medication Instructions Recorded Gabapentin [Neurontin] 100 mg PO TID #90 cap 06/10/18 Allergies Allergy/AdvReac Type Severity Reaction Status Date / Time cefazolin Allergy Rash/Hives Verified 05/05/19 13:32 cefazolin sodium [From Ancef] Allergy Rash/Hives Verified 05/05/19 13:32 morphine AdvReac Nausea & Verified 05/05/19 13:32 Vomiting Review of Systems ROS Statement: Those systems with pertinent positive or pertinent negative responses have been documented in the HPI. ROS Other: All systems not noted in ROS Statement are negative. Past Medical History Past Medical History: Cancer, Chest Pain / Angina, Hyperlipidemia, Hypertension, Myocardial Infarction ([place]), Osteoarthritis (OA), Syncope, Thyroid Disorder Additional Past Medical History / Comment(s): [place] X2 ("in my 30's), SKIN CA, pain lower spine and legs, rectal bleeding , irregular heart beat, low sodium, see Dr. Fink's H&P. Last Myocardial Infarction Date:: approx 40 yrs ago History of Any Multi-Drug Resistant Organisms: None Reported Past Surgical History: Back Surgery, Heart Catheterization, Hernia Repair, Orthopedic Surgery, Pacemaker, Tonsillectomy Additional Past Surgical History / Comment(s): LAMINECTOMY & PLACEMENT OF NEUROSTIMULATOR, repositioned them later removed, ana catarats, Past Anesthesia/Blood Transfusion Reactions: Motion Sickness Type of Cardiac Device: Permanent Pacemaker Device Placement Date:: October 2017 Past Psychological History: Anxiety, Depression Smoking Status: Current every day smoker Past Alcohol Use History: None Reported Past Drug Use History: None Reported - Past Family History Mother Family Medical History: Cancer Father Family Medical History: Cancer Brother(s) Family Medical History: Cancer General Exam - General Exam Comments Initial Comments: GENERAL: Patient is well-developed and well-nourished. Patient is nontoxic and well- hydrated and is in mild distress. ENT: Neck is soft and supple. No significant lymphadenopathy is noted. Oropharynx is clear. Moist mucous membranes. Neck has full range of motion without elicit ing any pain. EYES: The sclera were anicteric and conjunctiva were pink and moist. Extraocular mov ements were intact and pupils were equal round and reactive to light. Eyelids were unremarkable. PULMONARY: Unlabored respirations. Good breath sounds bilaterally. No audible rales rhonchi or wheezing was noted. CARDIOVASCULAR: There is a regular rate and rhythm without any murmurs gallops or rubs. Left lateral rib cage is extremely tender to palpation there is no rash no swelling no redness no crepitus. ABDOMEN: Soft and nontender with normal bowel sounds. SKIN: Skin is clear with no lesions or rashes and otherwise unremarkable. NEUROLOGIC: Patient is alert and oriented x3. Cranial nerves II through XII are grossly intact. Motor and sensory are also intact. Normal speech, volume and content. Symmetrical smile. MUSCULOSKELETAL: Normal extremities with adequate strength and full range of motion. LYMPHATICS: No significant lymphadenopathy is noted PSYCHIATRIC: Normal psychiatric evaluation. Limitations: no limitations Course Vital Signs 05/05/19 05/05/19 05/05/19 12:48 13:39 13:51 Temperature 97.6 F Pulse Rate 59 L Pulse Rate [ 60 Sitting] Pulse Rate [ 65 Standing] Pulse Rate [ 60 Supine] Respiratory 20 18 Rate Blood Pressure 158/88 Blood Pressure 177/98 [Sitting] Blood Pressure 176/108 [Standing] Blood Pressure 165/88 [Supine] O2 Sat by Pulse 98 Oximetry 05/05/19 14:51 Temperature Pulse Rate 52 L Pulse Rate [ Sitting] Pulse Rate [ Standing] Pulse Rate [ Supine] Respiratory 18 Rate Blood Pressure 184/90 Blood Pressure [Sitting] Blood Pressure [Standing] Blood Pressure [Supine] O2 Sat by Pulse 98 Oximetry Medical Decision Making - Medical Decision Making EKG shows paced rhythm at 50 bpm VA interval is 132 QRS is 142 QT intervals 518 QTC is 508. Patient's EKG shows no ST segment elevation. EKG shows no changes compared to old EKG Chest x-ray showed no acute abnormality. CT of the chest showed some subacute rib fractures on the left. No long abnormality was noted. I spoke with Dr. cotto he continued agreed to admit the patient admitted the patient consult cardiology. I was more concerned about the patient's syncope or near syncopal episodes as opposed to the pain in the left chest wall. I wrote admitting orders and I consult cardiology - Lab Data Result diagrams: 05/05/19 13:27 05/05/19 13:27 Lab Results 05/05/19 05/05/19 05/05/19 Range/Units 13:27 13:27 13:27 WBC 8.0 (3.8-10.6) k/uL RBC 4.09 L (4.30-5.90) m/uL Hgb 14.0 (13.0-17.5) gm/dL Hct 42.1 (39.0-53.0) % MCV 103.0 H (80.0-100.0) fL MCH 34.3 (25.0-35.0) pg MCHC 33.3 (31.0-37.0) g/dL RDW 13.9 (11.5-15.5) % Plt Count 307 (150-450) k/uL Neutrophils % 68 % Lymphocytes % 20 % Monocytes % 8 % Eosinophils % 2 % Basophils % 1 % Neutrophils # 5.5 (1.3-7.7) k/uL Lymphocytes # 1.6 (1.0-4.8) k/uL Monocytes # 0.6 (0-1.0) k/uL Eosinophils # 0.1 (0-0.7) k/uL Basophils # 0.1 (0-0.2) k/uL Macrocytosis Slight PT 10.2 (9.0-12.0) sec INR 0.9 (<1.2) APTT 24.7 (22.0-30.0) sec D-Dimer 1.44 H (<0.60) mg/L FEU Sodium 134 L (137-145) mmol/L Potassium 3.6 (3.5-5.1) mmol/L Chloride 99 (98-107) mmol/L Carbon Dioxide 25 (22-30) mmol/L Anion Gap 10 mmol/L BUN 7 L (9-20) mg/dL Creatinine 0.68 (0.66-1.25) mg/dL Est GFR (CKD-EPI)AfAm >90 (>60 ml/min/1.73 sqM) Est GFR (CKD-EPI)NonAf >90 (>60 ml/min/1.73 sqM) Glucose 97 (74-99) mg/dL Calcium 9.1 (8.4-10.2) mg/dL Magnesium 1.1 L (1.6-2.3) mg/dL Total Bilirubin 0.6 (0.2-1.3) mg/dL AST 35 (17-59) U/L ALT 18 L (21-72) U/L Alkaline Phosphatase 78 (38-126) U/L Troponin I (0.000-0.034) ng/mL NT-Pro-B Natriuret Pep pg/mL Total Protein 6.6 (6.3-8.2) g/dL Albumin 4.0 (3.5-5.0) g/dL 05/05/19 05/05/19 Range/Units 13:27 13:27 WBC (3.8-10.6) k/uL RBC (4.30-5.90) m/uL Hgb (13.0-17.5) gm/dL Hct (39.0-53.0) % MCV (80.0-100.0) fL MCH (25.0-35.0) pg MCHC (31.0-37.0) g/dL RDW (11.5-15.5) % Plt Count (150-450) k/uL Neutrophils % % Lymphocytes % % Monocytes % % Eosinophils % % Basophils % % Neutrophils # (1.3-7.7) k/uL Lymphocytes # (1.0-4.8) k/uL Monocytes # (0-1.0) k/uL Eosinophils # (0-0.7) k/uL Basophils # (0-0.2) k/uL Macrocytosis PT (9.0-12.0) sec INR (<1.2) APTT (22.0-30.0) sec D-Dimer (<0.60) mg/L FEU Sodium (137-145) mmol/L Potassium (3.5-5.1) mmol/L Chloride (98-107) mmol/L Carbon Dioxide (22-30) mmol/L Anion Gap mmol/L BUN (9-20) mg/dL Creatinine (0.66-1.25) mg/dL Est GFR (CKD-EPI)AfAm (>60 ml/min/1.73 sqM) Est GFR (CKD-EPI)NonAf (>60 ml/min/1.73 sqM) Glucose (74-99) mg/dL Calcium (8.4-10.2) mg/dL Magnesium (1.6-2.3) mg/dL Total Bilirubin (0.2-1.3) mg/dL AST (17-59) U/L ALT (21-72) U/L Alkaline Phosphatase (38-126) U/L Troponin I <0.012 (0.000-0.034) ng/mL NT-Pro-B Natriuret Pep 1890 pg/mL Total Protein (6.3-8.2) g/dL Albumin (3.5-5.0) g/dL Disposition Clinical Impression: Near syncope, Multiple falls, Rib fractures Disposition: ADMITTED IP TO THIS [facility] Referrals: Mario June DO [Primary Care Provider] - 1-2 days Time of Disposition: 15:36
[2019-05-05 13:44] LABS: Basophils # (A) 0.1 k/uL (0-0.2); Basophils % (A) 1 %; Eosinophils # (A) 0.1 k/uL (0-0.7); Eosinophils % (A) 2 %; HCT 42.1 % (39.0-53.0); Lymphocytes # (A) 1.6 k/uL (1.0-4.8); Lymphocytes % (A) 20 %; MCH 34.3 pg (25.0-35.0); MCHC 33.3 g/dL (31.0-37.0); Macrocytosis Slight; Mean Platelet Volume 6.8; Monocytes # (A) 0.6 k/uL (0-1.0); Monocytes % (A) 8 %; Neutrophils # (A) 5.5 k/uL (1.3-7.7); Neutrophils % (A) 68 %; Platelet Count 307 k/uL (150-450); RBC 4.09 m/uL (4.30-5.90); RDW 13.9 % (11.5-15.5)
[2019-05-05 13:55] LABS: ALT 18 U/L (21-72); AST 35 U/L (17-59); African American GFR (CKD) >90 (>60 ml/min/1.73 sqM); Alkaline Phosphatase 78 U/L (38-126); Anion Gap 10 mmol/L; Blood Urea Nitrogen 7 mg/dL (9-20); Calcium 9.1 mg/dL (8.4-10.2); Carbon Dioxide 25 mmol/L (22-30); Chloride 99 mmol/L (98-107); Glucose 97 mg/dL (74-99); Magnesium 1.1 mg/dL (1.6-2.3); Potassium 3.6 mmol/L (3.5-5.1); Sodium 134 mmol/L (137-145); Total Bilirubin 0.6 mg/dL (0.2-1.3); Total Protein 6.6 g/dL (6.3-8.2)
[2019-05-05 14:01] LABS: INR 0.9 (<1.2); Prothrombin Time 10.2 sec (9.0-12.0)
[2019-05-05 14:02] LABS: Partial Thromboplastin Time 24.7 sec (22.0-30.0)
[2019-05-05 14:07] LABS: D-Dimer 1.44 mg/L FEU (<0.60)
[2019-05-05] MEDS ORDERED: MAGNESIUM SULFATE-D5W PMX 1 GM in DEXTROSE/WATER 1 100ML.BAG IVPB ONE (14:09)
[2019-05-05] MEDS ORDERED: SODIUM CHLORIDE 0.9% 500 ML 500 ML IV ONE (14:09)
--- NOTE | 2019-05-05 14:14 | XR ---
EXAMINATION TYPE: XR ribs LT w pa chest xray DATE OF EXAM: 05/05/2019 CLINICAL HISTORY: Chest and left-sided rib pain. TECHNIQUE: Single frontal view of the chest is obtained. A frontal and oblique images the left-sided ribs are acquired. COMPARISON: CT and chest x-ray from 10/12/2019 FINDINGS: There is chronic parenchymal change without suspicious focal air space opacity, pleural ef fusion, or pneumothorax seen. The cardiac silhouette size is upper limits of normal with multi lead pacemaker and atherosclerotic thoracic aorta. Anterior fusion plate lower cervical spine is partially imaged. Osseous structures are demineralized. There are multiple subacute or old lateral left rib fractures r edemonstrated involving upper and lower ribs. No acute displaced fractures are seen. IMPRESSION: 1. Chronic changes without acute pulmonary process. 2. Multiple old lateral subacute or chronic rib fractures redemonstrated. No acute displaced fracture s are clearly seen.
--- NOTE | 2019-05-05 14:57 | CT ---
EXAMINATION TYPE: CT chest angio for PE DATE OF EXAM: 05/05/2019 COMPARISON: CT chest abdomen and pelvis March 03, 2019. HISTORY: lt side chest pain/elevated d immer CT DLP: 269.9 mGycm. Automated Exposure Control for Dose Reduction was Utilized. CONTRAST: CTA scan of the thorax is performed with IV Contrast, patient injected with 100 mL of Isovue 370, pul monary embolism protocol. MIP Images are created on CT scanner and reviewed. FINDINGS: LUNGS: Mild underlying emphysematous changes redemonstrated. Dependent atelectasis bilateral lower lo bes is seen. There is additional linear scarring in the right middle lobe near diaphragm and mild to moderate linear scarring in both bases redemonstrated. No pleural effusion or pneumothorax is seen. N o new suspicious nodules or masses MEDIASTINUM: There is satisfactory enhancement of the pulmonary artery and its branches, there is no CT evidence for pulmonary embolism. There are no greater than 1 cm hilar or mediastinal lymph nodes. No cardiomegaly or pericardial effusion is seen. Dual-lead pacemaker is redemonstrated. OTHER: Mild multilevel spurring in the spine is again seen. Low dense thickening of both adrenal glan ds favors benign lipid rich hyperplasia not significantly changed from prior. Healing or healed poste rior lateral right eighth through 11th rib fractures are again seen. There are additional healing or healed left anterolateral rib fractures involving second through ninth ribs. IMPRESSION: No CT evidence for acute pulmonary embolism. Mild emphysematous change without new suspic ious acute pulmonary process. Bilateral healing or healed rib fractures redemonstrated. Correlate cli nically.
[2019-05-05] MEDS ORDERED: NITROGLYCERIN SL TABS 0.4 MG TAB SUBLINGUAL PRN ×2 (15:39→16:13)
[2019-05-05] MEDS ORDERED: valACYclovir 500 MG TAB PO PRN (16:13)
[2019-05-05] MEDS ORDERED: oxyCODONE-APAP 10-325MG 1 EACH TAB PO PRN (16:13)
[2019-05-05] MEDS: HYDROmorphone 0.5 MG/0.5 ML SYRINGE IVP PRN (18:14)
--- NOTE | 2019-05-05 18:29 | P.HPIM ---
History of Present Illness Patient reports historian and unable to get clear history from the patient 73-year-old male came in with the left rib pain appears to be secondary to the fractures patient has been falling lately and has multiple syncopal episodes. Patient was found to have low blood pressure monitor medications were adjusted recently. He continues to be lightheaded orthostatic vitals are negative patient did patient is not actually low here patient is being admitted for an echocardiogram telemetry monitoring cardiology will be consulted to get much of the history from the patient although able to provide appears to have some difficulties with memory and patient able appears to have pacemaker not sure patient is not sure why it appears to have had bradycardia in the past magnesium is low as well which will be replaced hyponatremic. His pacer need to be interrogated patient has history of coronary artery disease, had can start failure chronic systolic dysfunction ejection fraction 40-45% not in any diuretic therapy here. had a daily elevated d-dimer because of which patient had a CT angios the chest which is negative for any pulmonary embolism Review of Systems REVIEW OF SYSTEMS: CONSTITUTIONAL: No fever, no malaise, no fatigue. HEENT: No recent visual problems or hearing problems. Denied any sore throat. CARDIOVASCULAR: No orthopnea, PND, no palpitations, PULMONARY: No shortness of breath, no cough, no hemoptysis. GASTROINTESTINAL: No diarrhea, no nausea, no vomiting, no abdominal pain. NEUROLOGICAL: No headaches, no weakness, no numbness. HEMATOLOGICAL: Denies any bleeding or petechiae. GENITOURINARY: Denies any burning micturition, frequency, or urgency. MUSCULOSKELETAL/RHEUMATOLOGICAL: Denies any joint pain, swelling, or any muscle pain. ENDOCRINE: Denies any polyuria or polydipsia. The rest of the 14-point review of systems is negative. Past Medical History Past Medical History: Cancer, Chest Pain / Angina, Hyperlipidemia, Hypertension, Myocardial Infarction ([place]), Osteoarthritis (OA), Syncope, Thyroid Disorder Additional Past Medical History / Comment(s): [place] X2 ("in my 30's), SKIN CA, pain lower spine and legs, rectal bleeding , irregular heart beat, low sodium, see Dr. Fink's H&P. Last Myocardial Infarction Date:: approx 40 yrs ago History of Any Multi-Drug Resistant Organisms: None Reported Past Surgical History: Back Surgery, Heart Catheterization, Hernia Repair, Orthopedic Surgery, Pacemaker, Tonsillectomy Additional Past Surgical History / Comment(s): LAMINECTOMY & PLACEMENT OF NEUROSTIMULATOR, repositioned them later removed, ana catarats, Past Anesthesia/Blood Transfusion Reactions: Motion Sickness Type of Cardiac Device: Permanent Pacemaker Device Placement Date:: October 2017 Past Psychological History: Anxiety, Depression Smoking Status: Current every day smoker Past Alcohol Use History: None Reported Past Drug Use History: None Reported - Past Family History Mother Family Medical History: Cancer Father Family Medical History: Cancer Brother(s) Family Medical History: Cancer Medications and Allergies Home Medications Medication Instructions Recorded Confirmed Type Nitroglycerin Sl Tabs [Nitrostat] 0.4 mg SUBLINGUAL Q5M PRN 03/27/14 05/05/19 History Atorvastatin [Lipitor] 80 mg PO HS 09/20/14 05/05/19 History Esomeprazole Magnesium [NexIUM] 40 mg PO DAILY 01/22/17 05/05/19 History Levothyroxine Sodium [Synthroid] 25 mcg PO DAILY 01/22/17 05/05/19 History Loratadine [Claritin] 10 mg PO DAILY 07/06/17 05/05/19 History valACYclovir [Valtrex] 500 mg PO DAILY PRN 07/06/17 05/05/19 History Ergocalciferol (Vitamin D2) 50,000 unit PO MO 07/15/17 05/05/19 History [Vitamin D2] oxyCODONE HCL/ACETAMINOPHEN 1 tab PO Q4H PRN 07/16/17 05/05/19 History [Percocet 10-325 mg] Alendronate Sodium [Fosamax] 70 mg PO TU 06/21/18 05/05/19 History Aspirin [Adult Low Dose Aspirin EC] 81 mg PO DAILY 06/21/18 05/05/19 History Diphenoxylate HCl/Atropine 2 tab PO QID 06/21/18 05/05/19 History [Lomotil 2.5-0.025 mg Tablet] Nortriptyline [Pamelor] 25 mg PO HS 06/21/18 05/05/19 History PARoxetine HCL 40 mg PO DAILY 06/21/18 05/05/19 History Metoprolol Succinate [Toprol XL] 12.5 mg PO HS 05/05/19 05/05/19 History Allergies Allergy/AdvReac Type Severity Reaction Status Date / Time cefazolin Allergy Rash/Hives Verified 05/05/19 13:32 cefazolin sodium [From [facility]] Allergy Rash/Hives Verified 05/05/19 13:32 morphine AdvReac Nausea & Verified 05/05/19 13:32 Vomiting Physical Exam Vitals: Vital Signs Temp Pulse Pulse Pulse Pulse Resp BP 05/05/19 15:47 51 L 18 176/92 05/05/19 14:51 52 L 18 184/90 05/05/19 13:51 18 05/05/19 13:39 60 65 60 05/05/19 12:48 97.6 F 59 L 20 158/88 BP BP BP Pulse Ox 05/05/19 15:47 100 05/05/19 14:51 98 05/05/19 13:51 05/05/19 13:39 177/98 176/108 165/88 05/05/19 12:48 98 Intake and Output 05/05/19 05/05/19 05/05/19 06:59 14:59 22:59 Other: Weight 63.503 kg PHYSICAL EXAMINATION: GENERAL: The patient is alert and oriented x3, not in any acute distress. Well developed, well nourished. HEENT: Pupils are round and equally reacting to light. EOMI. No scleral icterus. No conjunctival pallor. Normocephalic, atraumatic. No pharyngeal erythema. No thyromegaly. CARDIOVASCULAR: S1 and S2 present. No murmurs, rubs, or gallops. PULMONARY: Chest is clear to auscultation, no wheezing or crackles. Does have rib cage tenderness ABDOMEN: Soft, nontender, nondistended, normoactive bowel sounds. No palpable organomegaly. MUSCULOSKELETAL: No joint swelling or deformity. EXTREMITIES: No cyanosis, clubbing, or pedal edema. NEUROLOGICAL: Gross neurological examination did not reveal any focal deficits. SKIN: No rashes. Results CBC & Chem 7: 05/05/19 13:27 05/05/19 13:27 Labs: Abnormal Lab Results - Last 24 Hours (Table) 05/05/19 05/05/19 05/05/19 Range/Units 13:27 13:27 13:27 RBC 4.09 L (4.30-5.90) m/uL MCV 103.0 H (80.0-100.0) fL D-Dimer 1.44 H (<0.60) mg/L FEU Sodium 134 L (137-145) mmol/L BUN 7 L (9-20) mg/dL Magnesium 1.1 L (1.6-2.3) mg/dL ALT 18 L (21-72) U/L Assessment and Plan Plan: -Syncope: Etiology is not clear patient's pacemaker need to be interrogated developed right-sided to be replaced cardiology will be consulted. Patient is not heart heart failure exacerbation, patient will be monitored in telemetry. Cardiology will be consulted -Right lower rib cage pain: Secondary to fractures which are nonhealing stages -Hyponatremia can be hypovolemic hyponatremia changes heart failure or not starting on any IV fluids will monitor basic metabolic profile tomorrow patient is not requiring a diuretic therapy at this time -Congestive heart failure chronic systolic dysfunction ejection fraction of 40- 45% -History of bradycardia in the past for which patient has a pacemaker which need to be interrogated -Coronary artery disease -Hyperlipidemia -hypothyroidism -Depression For above-mentioned chronic medical problems patient will be resumed on appropriate home medications.
[2019-05-05] MEDS ORDERED: SODIUM CHLORIDE 0.9% 1,000 ML IV SCH (18:30)
[2019-05-05] MEDS ORDERED: METOPROLOL SUCCINATE (ER) 25 MG TAB.ER.24H PO SCH (21:00)
[2019-05-05] MEDS ORDERED: NORTRIPTYLINE 25 MG CAP PO SCH (21:00)
[2019-05-05] MEDS ORDERED: ATORVASTATIN 80 MG TAB PO SCH (21:00)
[2019-05-05] MEDS: MAGNESIUM SULFATE-D5W PMX 1 GM in DEXTROSE/WATER 1 100ML.BAG IVPB SCH ×2 (21:19→23:53)
[2019-05-05] MEDS ORDERED: GABAPENTIN 100 MG CAP PO SCH (22:00)
[2019-05-06] MEDS: HYDROmorphone 0.5 MG/0.5 ML SYRINGE IVP PRN ×2 (00:32→09:28)
[2019-05-06] MEDS: MAGNESIUM SULFATE-D5W PMX 1 GM in DEXTROSE/WATER 1 100ML.BAG IVPB SCH ×2 (01:09→02:14)
[2019-05-06 06:17] LABS: African American GFR (CKD) >90 (>60 ml/min/1.73 sqM); Anion Gap 6 mmol/L; Blood Urea Nitrogen 8 mg/dL (9-20); Calcium 8.9 mg/dL (8.4-10.2); Carbon Dioxide 25 mmol/L (22-30); Chloride 104 mmol/L (98-107); Cholesterol 166 mg/dL (<200); Glucose 102 mg/dL (74-99); HDL Cholesterol 63 mg/dL (40-60); LDL Cholesterol,Calculated 90 mg/dL (0-99); Magnesium 2.7 mg/dL (1.6-2.3); Potassium 3.5 mmol/L (3.5-5.1); Sodium 135 mmol/L (137-145); Triglycerides 64 mg/dL (<150)
[2019-05-06] MEDS ORDERED: LEVOTHYROXINE 25 MCG TAB PO SCH (06:30)
[2019-05-06] MEDS ORDERED: PANTOPRAZOLE 40 MG TABLET PO SCH (07:30)
[2019-05-06] MEDS ORDERED: ASPIRIN 325 MG TAB PO SCH (09:00)
[2019-05-06] MEDS ORDERED: ASPIRIN 81 MG PO SCH (09:00)
[2019-05-06] MEDS ORDERED: PARoxetine 20 MG TAB PO SCH (09:00)
[2019-05-06 09:11] VITALS: RESP 16
--- NOTE | 2019-05-06 09:17 | P.CRDCN ---
History of Present Illness Consult date: 05/06/19 Requesting physician: Kahlil E Sheet Reason for Consult (text): near syncope, multiple falls Chief complaint: left rib pain History of present illness: This is a pleasant 73-year-old gentleman who follows with Dr. VC Yanes in the office. He is a poor historian but patient is able to give much of the history of presenting illness. He has a history of heart block, status post permanent pacemaker implantation with upgrade in January to biventricular pacemaker due to pacemaker induced cardiomyopathy with echocardiogram from May of last year showing an ejection fraction between 40-45%. He also has a history of hypertension, AAA measuring 4.2 cm and recurrent syncope with a negative tilt t able test done in December of this year. Patient did undergo cardiac catheterization in June 2018 that revealed minimal CAD with irregularity noted in the circumflex and LAD. Mr. Marcelino presents this admission mostly with complaints of left rib pain. He is apparently been having recurrent syncope at least 3 times over the last week or so. The circumstances surrounding these episodes are unclear. His blood pressure according to him has been running high at home according to the, he had low blood pressures and medications have been adjusted recently. Carotid Doppler study from May of last year showed mild to moderate atherosclerotic change bilaterally without hemodynamically significant stenosis. EKG on admission showed biventricular paced rhythm. He did have a rib x-ray on admission which showed chronic changes without acute pulmonary process with multiple old lateral subacute and chronic rib fractures we demonstrated, no acute displaced fractures clearly seen. Orthostatic vital signs were checked in the emergency department and were negative. Blood pressure has been running 160s over 80s. He is currently on aspirin 81 mg daily, Lipitor 80 mg daily, metoprolol succinate 12.5 mg by mouth at at bedtime, Claritin, Synthroid, Nexium, vitamin D, Paxil, nortriptyline, Percocet, and Valtrex. Laboratory values upon admission showed a magnesium of 1.1 which was replaced with a repeat magnesium this morning of 2.7 troponins have been negative 3 and T proBNP came back at 1090. Patient's B1 is 7 and creatinine 0.68 he is mildly hyponatremic and d-dimer came back elevated and a CT of the chest was done that showed no evidence for pulmonary embolism. Upon examination this morning, patient is resting comfortably in bed. He continues to complain of left-sided rib pain. Otherwise he denies current complaints of shortness of breath, dizziness, lightheadedness, nausea, diaphoresis or edema. Past Medical History Past Medical History: Cancer, Chest Pain / Angina, Hyperlipidemia, Hypertension, Myocardial Infarction ([place]), Osteoarthritis (OA), Syncope, Thyroid Disorder Additional Past Medical History / Comment(s): [place] X2 ("in my 30's), SKIN CA, pain lower spine and legs, rectal bleeding , irregular heart beat, low sodium, see Dr. Fink's H&P. Last Myocardial Infarction Date:: approx 40 yrs ago History of Any Multi-Drug Resistant Organisms: None Reported Past Surgical History: Back Surgery, Heart Catheterization, Hernia Repair, Orthopedic Surgery, Pacemaker, Tonsillectomy Additional Past Surgical History / Comment(s): LAMINECTOMY & PLACEMENT OF NEUROSTIMULATOR, repositioned them later removed, ana catarats, Past Anesthesia/Blood Transfusion Reactions: Motion Sickness Type of Cardiac Device: Permanent Pacemaker Device Placement Date:: October 2017 Past Psychological History: Anxiety, Depression Smoking Status: Current every day smoker Past Alcohol Use History: None Reported Additional Past Alcohol Use History / Comment(s): started smoking at age 13 smokes 1ppd. pt states that he usually drinks alcohol on the weekend 6-7 beers, states now smoking about 1/2 ppd. Past Drug Use History: None Reported Additional Drug Use History / Comment(s): denies - Past Family History Mother Family Medical History: Cancer Father Family Medical History: Cancer Brother(s) Family Medical History: Cancer Medications and Allergies Home Medications Medication Instructions Recorded Confirmed Type Nitroglycerin Sl Tabs [Nitrostat] 0.4 mg SUBLINGUAL Q5M PRN 03/27/14 05/05/19 History Atorvastatin [Lipitor] 80 mg PO HS 09/20/14 05/05/19 History Esomeprazole Magnesium [NexIUM] 40 mg PO DAILY 01/22/17 05/05/19 History Levothyroxine Sodium [Synthroid] 25 mcg PO DAILY 01/22/17 05/05/19 History Loratadine [Claritin] 10 mg PO DAILY 07/06/17 05/05/19 History valACYclovir [Valtrex] 500 mg PO DAILY PRN 07/06/17 05/05/19 History Ergocalciferol (Vitamin D2) 50,000 unit PO MO 07/15/17 05/05/19 History [Vitamin D2] oxyCODONE HCL/ACETAMINOPHEN 1 tab PO Q4H PRN 07/16/17 05/05/19 History [Percocet 10-325 mg] Alendronate Sodium [Fosamax] 70 mg PO TU 06/21/18 05/05/19 History Aspirin [Adult Low Dose Aspirin EC] 81 mg PO DAILY 06/21/18 05/05/19 History Diphenoxylate HCl/Atropine 2 tab PO QID 06/21/18 05/05/19 History [Lomotil 2.5-0.025 mg Tablet] Nortriptyline [Pamelor] 25 mg PO HS 06/21/18 05/05/19 History PARoxetine HCL 40 mg PO DAILY 06/21/18 05/05/19 History Metoprolol Succinate [Toprol XL] 12.5 mg PO HS 05/05/19 05/05/19 History Allergies Allergy/AdvReac Type Severity Reaction Status Date / Time cefazolin Allergy Rash/Hives Verified 05/05/19 13:32 cefazolin sodium [From [facility]] Allergy Rash/Hives Verified 05/05/19 13:32 morphine AdvReac Nausea & Verified 05/05/19 13:32 Vomiting Physical Exam Vitals: Vital Signs Temp Pulse Pulse Pulse Pulse Pulse Resp 05/06/19 08:00 97.6 F 55 L 16 05/06/19 04:00 97.7 F 55 L 18 05/06/19 03:45 18 05/06/19 00:00 98.1 F 60 65 54 L 18 05/05/19 23:27 20 05/05/19 21:11 52 L 18 05/05/19 18:00 53 L 18 05/05/19 15:47 51 L 18 05/05/19 14:51 52 L 18 05/05/19 13:51 18 05/05/19 13:39 60 65 60 05/05/19 12:48 97.6 F 59 L 20 BP BP BP BP BP Pulse Ox 05/06/19 08:00 160/86 98 05/06/19 04:00 162/84 97 05/06/19 03:45 05/06/19 00:00 171/84 99 05/05/19 23:27 05/05/19 21:11 142/89 100 05/05/19 18:00 139/82 98 05/05/19 15:47 176/92 100 05/05/19 14:51 184/90 98 05/05/19 13:51 05/05/19 13:39 177/98 176/108 165/88 05/05/19 12:48 158/88 98 Intake and Output 05/05/19 05/06/19 05/06/19 22:59 06:59 14:59 Intake Total 550 Output Total 500 Balance 50 Intake: Intake, IV Titration 400 Amount Magnesium Sulfate-D5w Pmx 400 1 gm In Dextrose/Water 1 100ml.bag @ 100 mls/hr IVPB Q1H BECKY Rx#: [id number] Oral 150 Output: Urine 500 Other: Voiding Method Urinal # Voids 2 PHYSICAL EXAMINATION: HEENT: Head is atraumatic, normocephalic. Pupils equal, round. Neck is supple. There is no elevated jugular venous pressure. No carotid bruit. HEART EXAMINATION: Heart sounds regular, S1 and S2 with a systolic murmur. CHEST EXAMINATION: Lungs are clear to auscultation and precussion. No chest wall tenderness is noted on palpation or with deep breathing. Left-sided rib tenderness noted. LIC site well-healed. ABDOMEN: Soft, nontender. Bowel sounds are heard. No organomegaly noted. EXTREMITIES: 2+ peripheral pulses with no evidence of peripheral edema and no calf tenderness noted. NEUROLOGIC patient is awake, alert and oriented x3. Short-term memory loss noted. . Results 05/05/19 13:27 05/06/19 05:48 Cardiac Enzymes 05/05/19 05/05/19 05/05/19 Range/Units 13:27 13:27 19:31 AST 35 (17-59) U/L Troponin I <0.012 0.015 (0.000-0.034) ng/mL 05/06/19 Range/Units 01:00 AST (17-59) U/L Troponin I 0.017 (0.000-0.034) ng/mL Coagulation 05/05/19 Range/Units 13:27 PT 10.2 (9.0-12.0) sec APTT 24.7 (22.0-30.0) sec Lipids 05/06/19 Range/Units 05:48 Triglycerides 64 (<150) mg/dL Cholesterol 166 (<200) mg/dL HDL Cholesterol 63 H (40-60) mg/dL CBC 05/05/19 Range/Units 13:27 WBC 8.0 (3.8-10.6) k/uL RBC 4.09 L (4.30-5.90) m/uL Hgb 14.0 (13.0-17.5) gm/dL Hct 42.1 (39.0-53.0) % Plt Count 307 (150-450) k/uL Comprehensive Metabolic Panel 05/05/19 05/06/19 Range/Units 13:27 05:48 Sodium 134 L 135 L (137-145) mmol/L Potassium 3.6 3.5 (3.5-5.1) mmol/L Chloride 99 104 (98-107) mmol/L Carbon Dioxide 25 25 (22-30) mmol/L BUN 7 L 8 L (9-20) mg/dL Creatinine 0.68 0.68 (0.66-1.25) mg/dL Glucose 97 102 H (74-99) mg/dL Calcium 9.1 8.9 (8.4-10.2) mg/dL AST 35 (17-59) U/L ALT 18 L (21-72) U/L Alkaline Phosphatase 78 (38-126) U/L Total Protein 6.6 (6.3-8.2) g/dL Albumin 4.0 (3.5-5.0) g/dL Current Medications Generic Name Dose Route Start Last Admin Trade Name Freq PRN Reason Stop Dose Admin Aspirin 81 mg 05/06/19 09:00 Aspirin PO DAILY [facility] Atorvastatin Calcium 80 mg 05/05/19 21:00 05/05/19 23:51 Lipitor PO 80 mg HS BECKY Administration Hydromorphone HCl 0.5 mg 05/05/19 15:44 05/06/19 00:32 Dilaudid IVP 0.5 mg Q6HR PRN Administration Pain Levothyroxine Sodium 25 mcg 05/06/19 06:30 05/06/19 06:16 Synthroid PO 25 mcg 0630 BECKY Administration Metoprolol Succinate 12.5 mg 05/05/19 21:00 05/05/19 23:52 Toprol Xl PO 12.5 mg HS BECKY Administration Nitroglycerin 0.4 mg 05/05/19 16:13 Nitrostat SUBLINGUAL Q5M PRN Chest Pain Nortriptyline HCl 25 mg 05/05/19 21:00 05/05/19 23:52 Pamelor PO 25 mg HS BECKY Administration Oxycodone/Acetaminophen 1 each 05/05/19 16:13 Percocet 10-325 PO Q4H PRN Pain Pantoprazole Sodium 40 mg 05/06/19 07:30 Protonix PO AC-BRKFST BECKY Paroxetine HCl 40 mg 05/06/19 09:00 Paxil PO DAILY BECKY Valacyclovir HCl 500 mg 05/05/19 16:13 Valtrex PO DAILY PRN shingles Intake and Output 05/05/19 05/06/19 05/06/19 22:59 06:59 14:59 Intake Total 550 Output Total 500 Balance 50 Intake: Intake, IV Titration 400 Amount Magnesium Sulfate-D5w Pmx 400 1 gm In Dextrose/Water 1 100ml.bag @ 100 mls/hr IVPB Q1H BECKY Rx#: [id number] Oral 150 Output: Urine 500 Other: Voiding Method Urinal # Voids 2 05/05/19 13:27 05/06/19 05:48 EKG Interpretations (text) Biventricular paced rhythm Assessment and Plan Assessment: #1 recurrent syncope #2 hypertension #3 AV block, status post pacemaker implantation with upgrade to biventricular pacemaker in January of this year #4 pacemaker induced cardiomyopathy #5 left rib pain with evidence of multiple old or chronic rib fractures on x-ray #6 hypomagnesemia, resolved Plan: From cardiology's perspective, we will check another set of orthostatic blood pressures. We will obtain a 2-D echo with Doppler to reassess LV systolic function. We will have patient's pacemaker interrogated to assess for arrhythmias or lead failure. Further recommendations to follow depending on clinical course and test results. KETTLE GIRL note has been reviewed, I agree with a documented findings and plan of care. Patient was seen and examined.
--- NOTE | 2019-05-06 12:58 | ECHOF ---
Referral Reason:near syncope MEASUREMENTS -------- HEIGHT: 165.1 cm WEIGHT: 63.5 kg BP: 162/84 RVIDd: 2.8 cm (< 3.3) IVSd: 1.5 cm (0.6 - 1.1) LVIDd: 4.4 cm (3.9 - 5.3) LVPWd: 1.5 cm (0.6 - 1.1) IVSs: 1.8 cm LVIDs: 3.2 cm LVPWs: 1.5 cm LAESV Index (A-L): 23.83 ml/m Ao Diam: 3.3 cm (2.0 - 3.7) AV Cusp: 2.1 cm (1.5 - 2.6) LA Diam: 3.9 cm (2.7 - 3.8) EPSS: 1.2 cm MV E David: 0.38 m/s MV DecT: 205 ms MV A David: 0.72 m/s MV E/A Ratio: 0.53 RAP: 5.00 mmHg RVSP: 31.71 mmHg MV EF SLOPE: 58.81 mm/s (70 - 150) MV EXCURSION: 1.16 cm (> 18.000) FINDINGS -------- Sinus rhythm. Pacerwire seen in RV and RA. This was a technically good study. The left ventricular size is normal. There is moderate concentric left ventricular hypertrophy. O verall left ventricular systolic function is normal with, an EF between 55 - 60 %. The right ventricle is normal in size. Left atrium is normal size by volume. The right atrial size is normal. Interatrial and interventricular septum intact. Aortic valve is trileaflet and is mildly thickened. Trace to mild aortic regurgitation. Mild mitral annular calcification present. There is trace to mild mitral regurgitation. Mild tricuspid regurgitation present. There is no evidence of pulmonary hypertension. The right v entricular systolic pressure, as measured by Doppler, is 31.71mmHg. The pulmonic valve is normal. The aortic root size is normal. The inferior vena cava was not well visualized. There is no pericardial effusion. CONCLUSIONS -------- 1. Sinus rhythm. 2. Pacerwire seen in RV and RA. 3. This was a technically good study. 4. The left ventricular size is normal. 5. There is moderate concentric left ventricular hypertrophy. 6. Overall left ventricular systolic function is normal with, an EF between 55 - 60 %. 7. Left atrium is normal size by volume. 8. Aortic valve is trileaflet and is mildly thickened. 9. Trace to mild aortic regurgitation. 10. Mild mitral annular calcification present. 11. There is trace to mild mitral regurgitation. 12. Mild tricuspid regurgitation present. 13. There is no evidence of pulmonary hypertension. 14. The pulmonic valve is normal. 15. There is no pericardial effusion. TOOTH CUTTER PINION: Gavi Yeung RDCS
[2019-05-06 16:04] VITALS: BP 153/85; PULSE 63; TEMP 97.9
--- NOTE | 2019-05-06 16:33 | P.DS ---
Providers Date of admission: 05/05/19 15:40 Attending physician: Kahlil Rodriguez MD Consults: 05/05/19 15:40 Consult Physician Urgent Consulting Provider: [facility] Reason/Comments: Near syncope, multiple falls Do you want consulting provider notified?: Yes Primary care physician: [facility] Course: 73-year-old admitted the for syncopal episode and fracture secondary to that this may be related to his narcotics. Patient may have some intravascular depletion patient was hydrated with IV fluids patient pacemaker was interrogated echocardiogram was done which was within normal limits was evaluated by cardiology the cleared him for discharge. Patient chest pain is Musko skeletal secondary to rib fractures for which patient on a has pain medications at home. Patient is on 3 medication that has anticholinergic effect but the patient already has a pacemaker. Patient had a CT angios the chest which did not show any pulmonary embolism, patient will be discharged today. PHYSICAL EXAMINATION: GENERAL: The patient is alert and oriented x3, not in any acute distress. Well developed, well nourished. HEENT: Pupils are round and equally reacting to light. EOMI. No scleral icterus. No conjunctival pallor. Normocephalic, atraumatic. No pharyngeal erythema. No thyromegaly. CARDIOVASCULAR: S1 and S2 present. No murmurs, rubs, or gallops. PULMONARY: Chest is clear to auscultation, no wheezing or crackles. Does have rib cage tenderness ABDOMEN: Soft, nontender, nondistended, normoactive bowel sounds. No palpable organomegaly. MUSCULOSKELETAL: No joint swelling or deformity. EXTREMITIES: No cyanosis, clubbing, or pedal edema. NEUROLOGICAL: Gross neurological examination did not reveal any focal deficits. SKIN: No rashes. For other chronic medical problems and has was a short course please refer to my dictation of H&P from yesterday Plan - Discharge Summary New Discharge Prescriptions: Continue Nitroglycerin Sl Tabs [Nitrostat] 0.4 mg SUBLINGUAL Q5M PRN PRN Reason: Chest Pain Atorvastatin [Lipitor] 80 mg PO HS Levothyroxine Sodium [Synthroid] 25 mcg PO DAILY Esomeprazole Magnesium [NexIUM] 40 mg PO DAILY valACYclovir [Valtrex] 500 mg PO DAILY PRN PRN Reason: shingles Loratadine [Claritin] 10 mg PO DAILY Ergocalciferol (Vitamin D2) [Vitamin D2] 50,000 unit PO MO oxyCODONE HCL/ACETAMINOPHEN [Percocet 10-325 mg] 1 tab PO Q4H PRN PRN Reason: Pain PARoxetine HCL 40 mg PO DAILY Nortriptyline [Pamelor] 25 mg PO HS Diphenoxylate HCl/Atropine [Lomotil 2.5-0.025 mg Tablet] 2 tab PO QID Aspirin [Adult Low Dose Aspirin EC] 81 mg PO DAILY Alendronate Sodium [Fosamax] 70 mg PO TU Metoprolol Succinate [Toprol XL] 12.5 mg PO HS Discharge Medication List Nitroglycerin Sl Tabs [Nitrostat] 0.4 mg SUBLINGUAL Q5M PRN 03/27/14 [History] Atorvastatin [Lipitor] 80 mg PO HS 09/20/14 [History] Esomeprazole Magnesium [NexIUM] 40 mg PO DAILY 01/22/17 [History] Levothyroxine Sodium [Synthroid] 25 mcg PO DAILY 01/22/17 [History] Loratadine [Claritin] 10 mg PO DAILY 07/06/17 [History] valACYclovir [Valtrex] 500 mg PO DAILY PRN 07/06/17 [History] Ergocalciferol (Vitamin D2) [Vitamin D2] 50,000 unit PO MO 07/15/17 [History] oxyCODONE HCL/ACETAMINOPHEN [Percocet 10-325 mg] 1 tab PO Q4H PRN 07/16/17 [History] Alendronate Sodium [Fosamax] 70 mg PO TU 06/21/18 [History] Aspirin [Adult Low Dose Aspirin EC] 81 mg PO DAILY 06/21/18 [History] Diphenoxylate HCl/Atropine [Lomotil 2.5-0.025 mg Tablet] 2 tab PO QID 06/21/18 [History] Nortriptyline [Pamelor] 25 mg PO HS 06/21/18 [History] PARoxetine HCL 40 mg PO DAILY 06/21/18 [History] Metoprolol Succinate [Toprol XL] 12.5 mg PO HS 05/05/19 [History] Follow up Appointment(s)/Referral(s): Mario June DO [Primary Care Provider] - 3 Days Discharge Disposition: HOME SELF-CARE
== END 2019-05-06 16:24 | disposition home or self-care (01) ==
LOC: EC 12:47 → 1SOBS 15:40
PROVIDERS: ADMIT Internal Medicine; ATTEND Internal Medicine
DX: R55 Syncope and collapse (principal); E03.9 Hypothyroidism, unspecified; E78.5 Hyperlipidemia, unspecified; F32.9 Major depressive disorder, single episode, unspecified; I25.10 Atherosclerotic heart disease of native coronary artery without angina pectoris; E86.1 Hypovolemia; F41.9 Anxiety disorder, unspecified; E87.1 Hypo-osmolality and hyponatremia; I71.4 Abdominal aortic aneurysm, without rupture; I11.0 Hypertensive heart disease with heart failure; I50.22 Chronic systolic (congestive) heart failure; S22.41XA Multiple fractures of ribs, right side, initial encounter for closed fracture; F17.210 Nicotine dependence, cigarettes, uncomplicated; R29.6 Repeated falls; Z95.0 Presence of cardiac pacemaker; Z79.82 Long term (current) use of aspirin; Z79.899 Other long term (current) drug therapy; Z79.890 Hormone replacement therapy; Z88.1 Allergy status to other antibiotic agents; Z88.5 Allergy status to narcotic agent; I25.2 Old myocardial infarction; Z79.83 Long term (current) use of bisphosphonates
CPT/HCPCS: 96366 ×2; 96376 ×2; 96361; 96365; 96375; 99285; 36415; 93005; 93306; 85379; 83880; 80061; 80053; 80048; 83735 ×2; 84484 ×2; 85025; 85610; 85730; 71101; 71275; G0378 ×2; J1885; J3475 ×2; J1170 ×2; Q9967

== ENCOUNTER → 2019-10-10 | Outpatient (CLI) | payer MEDICARE, OTHER ==
--- NOTE | 2019-10-10 13:55 | CT ---
EXAMINATION TYPE: CT brain wo con DATE OF EXAM: 10/10/2019 COMPARISON: 06/11/1918 HISTORY: Headache x [address] DLP: 1036 mGycm Automated exposure control for dose reduction was used. TECHNIQUE: CT scan of the head is performed without contrast. FINDINGS: There is no acute intracranial hemorrhage or midline shift identified. There is diffuse v entricular and sulcal prominence consistent with diffuse age-related cerebral atrophy. There is low- attenuation in the periventricular white matter consistent with chronic small vessel ischemic change. Findings are most pronounced within the right frontal deep white matter as seen on the prior of 06/20. The globes are intact and the visualized sinuses are clear. Extensive atherosclerosis of th e intracranial vasculature particularly within the cavernous portions of the internal carotid arterie s. Terminal calcifications are typically benign. There is an old fracture of the left lamina papyracea. Moderate mucosal thickening of the ethmoid sin uses is seen. Remaining paranasal sinuses and mastoid air cells are well aerated. Extensive motion ar tifact on the bone algorithm scan. This limits evaluation. IMPRESSION: 1. No acute intracranial hemorrhage or midline shift. 2. Moderate ethmoid paranasal sinus disease. 3. Age-related cerebral atrophy and chronic small vessel ischemic change, similar in degree and distr ibution to the prior of 06/20/2018.
== END | disposition home or self-care (01) ==
LOC: RADCTMAIN 13:25
PROVIDERS: ATTEND Family Medicine
DX: G31.1 Senile degeneration of brain, not elsewhere classified (principal)
CPT/HCPCS: 70450

== ENCOUNTER → 2019-12-02 | Outpatient (CLI) | payer MEDICARE, OTHER ==
[2019-12-02 11:38] LABS: African American GFR (CKD) >90 (>60 ml/min/1.73 sqM); Blood Urea Nitrogen 14 mg/dL (9-20); Non-African American GFR(CKD) 82 (>60 ml/min/1.73 sqM)
--- NOTE | 2019-12-02 13:57 | CT ---
EXAMINATION TYPE: CT brain w con DATE OF EXAM: 12/02/2019 COMPARISON: 10/10/2019 INDICATION: Headaches without injury DLP: 1230 mGycm, Automated exposure control for dose reduction was used. CONTRAST: None CT of the brain is performed utilizing 3 mm thick sections through the posterior fossa and 3 mm thick sections through the remaining calvarium. Study is performed within 24 hours of arrival to the hosp [facility]. No abnormal hyperdensity is present to suggest an acute intracranial hemorrhage. No mass lesion is evident. No acute infarcts are evident. Ventricles and sulci are appropriate for the patient age. There is an air-fluid level within right maxillary sinus. Scattered mucosal thickenings within ethmoi d air cells. Remaining paranasal sinuses and mastoid air cells are clear. IMPRESSIONS: 1. No acute intracranial process. 2. Clinical correlation recommended for right maxillary sinusitis.
== END | disposition home or self-care (01) ==
LOC: RADCTMAIN 10:53
PROVIDERS: ATTEND Psychiatry & Neurology Neurology
DX: C71.0 Malignant neoplasm of cerebrum, except lobes and ventricles (principal)
CPT/HCPCS: 82565; 84520; 70460; 36415; Q9967

== ENCOUNTER 2020-01-31 17:15 | Inpatient (IN) | payer MEDICARE, OTHER ==
[2020-01-31] MEDS ORDERED: HYDROmorphone 1 MG/ML 1 ML SYRINGE IVP STA (18:09)
[2020-01-31] MEDS ORDERED: SODIUM CHLORIDE 0.9% 1,000 ML IV STA (18:09)
[2020-01-31] MEDS ORDERED: SODIUM CHLORIDE 0.9% 500 ML 500 ML IV STA (18:09)
[2020-01-31] MEDS ORDERED: ONDANSETRON 4 MG/2 ML VIAL IVP STA (18:09)
--- NOTE | 2020-01-31 18:12 | ED ---
General Adult HPI - General Chief complaint: Abdominal Pain Stated complaint: abd pain Time Seen by Provider: 01/31/20 17:20 Source: patient, family, RN notes reviewed, old records reviewed Mode of arrival: wheelchair Limitations: no limitations - History of Present Illness Initial comments: This is a 74-year-old male who comes in complaining of abdominal pain. Patient states been ongoing for a couple of months. Patient states over the last 4 days he started having nausea and vomiting and diarrhea every single day. Patient states the abdominal pain has gotten worse over the last 4 days. Patient states she's not eating or drinking anything. Patient states the abdominal pain is diffuse. Patient denies any point tenderness. Patient denies any recent fever chills. Patient does state that he just stopped Percocet about a week ago because he was smoking marijuana in his primary medical care doctor will not give any Percocet. Patient denies lightheadedness or dizziness. - Related Data Home Medications Medication Instructions Recorded Confirmed Nitroglycerin Sl Tabs [Nitrostat] 0.4 mg SUBLINGUAL Q5M PRN 03/27/14 05/05/19 Atorvastatin [Lipitor] 80 mg PO HS 09/20/14 05/05/19 Esomeprazole Magnesium [NexIUM] 40 mg PO DAILY 01/22/17 05/05/19 Levothyroxine Sodium [Synthroid] 25 mcg PO DAILY 01/22/17 05/05/19 Loratadine [Claritin] 10 mg PO DAILY 07/06/17 05/05/19 valACYclovir [Valtrex] 500 mg PO DAILY PRN 07/06/17 05/05/19 Ergocalciferol (Vitamin D2) 50,000 unit PO MO 07/15/17 05/05/19 [Vitamin D2] oxyCODONE HCL/ACETAMINOPHEN 1 tab PO Q4H PRN 07/16/17 05/05/19 [Percocet 10-325 mg] Alendronate Sodium [Fosamax] 70 mg PO TU 06/21/18 05/05/19 Aspirin [Adult Low Dose Aspirin EC] 81 mg PO DAILY 06/21/18 05/05/19 Diphenoxylate HCl/Atropine 2 tab PO QID 06/21/18 05/05/19 [Lomotil 2.5-0.025 mg Tablet] Nortriptyline [Pamelor] 25 mg PO HS 06/21/18 05/05/19 PARoxetine HCL 40 mg PO DAILY 06/21/18 05/05/19 Metoprolol Succinate [Toprol XL] 12.5 mg PO HS 05/05/19 05/05/19 Allergies Allergy/AdvReac Type Severity Reaction Status Date / Time cefazolin Allergy Rash/Hives Verified 01/31/20 17:24 cefazolin sodium [From [facility]] Allergy Rash/Hives Verified 01/31/20 17:24 morphine AdvReac Nausea & Verified 01/31/20 17:24 Vomiting Review of Systems ROS Statement: Those systems with pertinent positive or pertinent negative responses have been documented in the HPI. ROS Other: All systems not noted in ROS Statement are negative. Past Medical History Past Medical History: Cancer, Chest Pain / Angina, Hyperlipidemia, Hypertension, Myocardial Infarction ([place]), Osteoarthritis (OA), Syncope, Thyroid Disorder Additional Past Medical History / Comment(s): [place] X2 ("in my 30's), SKIN CA, pain lower spine and legs, rectal bleeding , irregular heart beat, low sodium, see Dr. Fink's H&P. Last Myocardial Infarction Date:: approx 40 yrs ago History of Any Multi-Drug Resistant Organisms: None Reported Past Surgical History: Back Surgery, Heart Catheterization, Hernia Repair, Orthopedic Surgery, Pacemaker, Tonsillectomy Additional Past Surgical History / Comment(s): LAMINECTOMY & PLACEMENT OF NEUROSTIMULATOR, repositioned them later removed, ana catarats, Past Anesthesia/Blood Transfusion Reactions: Motion Sickness Type of Cardiac Device: Permanent Pacemaker Device Placement Date:: October 2017 Past Psychological History: Anxiety, Depression Smoking Status: Current every day smoker Past Alcohol Use History: None Reported Past Drug Use History: None Reported - Past Family History Mother Family Medical History: Cancer Father Family Medical History: Cancer Brother(s) Family Medical History: Cancer General Exam - General Exam Comments Initial Comments: GENERAL: Patient is well-developed and well-nourished. Patient is nontoxic and well- hydrated and is in mild distress. ENT: Neck is soft and supple. No significant lymphadenopathy is noted. Oropharynx is clear. Moist mucous membranes. Neck has full range of motion without eliciting any pain. EYES: The sclera were anicteric and conjunctiva were pink and moist. Extraocular movements were intact and pupils were equal round and reactive to light. Eyelids were unremarkable. PULMONARY: Unlabored respirations. Good breath sounds bilaterally. No audible rales rhonchi or wheezing was noted. CARDIOVASCULAR: There is a regular rate and rhythm without any murmurs gallops or rubs. ABDOMEN: Mild diffuse tenderness SKIN: Skin is clear with no lesions or rashes and otherwise unremarkable. NEUROLOGIC: Patient is alert and oriented x3. Cranial nerves II through XII are grossly intact. Motor and sensory are also intact. Normal speech, volume and content. Symmetrical smile. MUSCULOSKELETAL: Normal extremities with adequate strength and full range of motion. LYMPHATICS: No significant lymphadenopathy is noted PSYCHIATRIC: Normal psychiatric evaluation. Limitations: no limitations Course Vital Signs 01/31/20 01/31/20 17:20 19:35 Temperature 97.6 F Pulse Rate 46 L 93 Respiratory 20 16 Rate Blood Pressure 114/81 141/87 O2 Sat by Pulse 95 97 Oximetry Medical Decision Making - Medical Decision Making I spoke with the nurse practitioner for Dr. Apodaca they agreed to admit the patient admitted the patient wrote admitting orders. - Lab Data Result diagrams: 01/31/20 18:25 01/31/20 18:25 Lab Results 01/31/20 01/31/20 01/31/20 Range/Units 18:25 18:25 18:25 WBC 9.7 (3.8-10.6) k/uL RBC 4.79 (4.30-5.90) m/uL Hgb 16.9 (13.0-17.5) gm/dL Hct 49.8 (39.0-53.0) % MCV 104.0 H (80.0-100.0) fL MCH 35.4 H (25.0-35.0) pg MCHC 34.0 (31.0-37.0) g/dL RDW 12.2 (11.5-15.5) % Plt Count 306 (150-450) k/uL Neutrophils % 82 % Lymphocytes % 10 % Monocytes % 6 % Eosinophils % 1 % Basophils % 0 % Neutrophils # 7.9 H (1.3-7.7) k/uL Lymphocytes # 0.9 L (1.0-4.8) k/uL Monocytes # 0.6 (0-1.0) k/uL Eosinophils # 0.1 (0-0.7) k/uL Basophils # 0.0 (0-0.2) k/uL Macrocytosis Slight Sodium 125 L (137-145) mmol/L Potassium 4.8 (3.5-5.1) mmol/L Chloride 96 L (98-107) mmol/L Carbon Dioxide 10 L (22-30) mmol/L Anion Gap 19 mmol/L BUN 34 H (9-20) mg/dL Creatinine 2.37 H (0.66-1.25) mg/dL Est GFR (CKD-EPI)AfAm 31 (>60 ml/min/1.73 sqM) Est GFR (CKD-EPI)NonAf 26 (>60 ml/min/1.73 sqM) Glucose 112 H (74-99) mg/dL Plasma Lactic Acid Gerardo 1.2 (0.7-2.0) mmol/L Calcium 9.6 (8.4-10.2) mg/dL Total Bilirubin 0.7 (0.2-1.3) mg/dL AST 56 (17-59) U/L ALT 28 (4-49) U/L Alkaline Phosphatase 78 (38-126) U/L Total Protein 8.3 H (6.3-8.2) g/dL Albumin 5.0 (3.5-5.0) g/dL Amylase 126 H (30-110) U/L Lipase 198 (23-300) U/L Urine Color Urine Appearance (Clear) Urine pH (5.0-8.0) Ur Specific Kathleen (1.001-1.035) Urine Protein (Negative) Urine Glucose (UA) (Negative) Urine Ketones (Negative) Urine Blood (Negative) Urine Nitrite (Negative) Urine Bilirubin (Negative) Urine Urobilinogen (<2.0) mg/dL Ur Leukocyte Esterase (Negative) Urine RBC (0-5) /hpf Urine WBC (0-5) /hpf Ur Squamous Epith Cells (0-4) /hpf Hyaline Casts (0-2) /lpf Urine Mucus (None) /hpf 01/31/20 Range/Units 18:25 WBC (3.8-10.6) k/uL RBC (4.30-5.90) m/uL Hgb (13.0-17.5) gm/dL Hct (39.0-53.0) % MCV (80.0-100.0) fL MCH (25.0-35.0) pg MCHC (31.0-37.0) g/dL RDW (11.5-15.5) % Plt Count (150-450) k/uL Neutrophils % % Lymphocytes % % Monocytes % % Eosinophils % % Basophils % % Neutrophils # (1.3-7.7) k/uL Lymphocytes # (1.0-4.8) k/uL Monocytes # (0-1.0) k/uL Eosinophils # (0-0.7) k/uL Basophils # (0-0.2) k/uL Macrocytosis Sodium (137-145) mmol/L Potassium (3.5-5.1) mmol/L Chloride (98-107) mmol/L Carbon Dioxide (22-30) mmol/L Anion Gap mmol/L BUN (9-20) mg/dL Creatinine (0.66-1.25) mg/dL Est GFR (CKD-EPI)AfAm (>60 ml/min/1.73 sqM) Est GFR (CKD-EPI)NonAf (>60 ml/min/1.73 sqM) Glucose (74-99) mg/dL Plasma Lactic Acid Gerardo (0.7-2.0) mmol/L Calcium (8.4-10.2) mg/dL Total Bilirubin (0.2-1.3) mg/dL AST (17-59) U/L ALT (4-49) U/L Alkaline Phosphatase (38-126) U/L Total Protein (6.3-8.2) g/dL Albumin (3.5-5.0) g/dL Amylase (30-110) U/L Lipase (23-300) U/L Urine Color Yellow Urine Appearance Clear (Clear) Urine pH 5.5 (5.0-8.0) Ur Specific Kathleen 1.018 (1.001-1.035) Urine Protein 1+ H (Negative) Urine Glucose (UA) Negative (Negative) Urine Ketones Negative (Negative) Urine Blood Small H (Negative) Urine Nitrite Negative (Negative) Urine Bilirubin Negative (Negative) Urine Urobilinogen <2.0 (<2.0) mg/dL Ur Leukocyte Esterase Negative (Negative) Urine RBC <1 (0-5) /hpf Urine WBC 4 (0-5) /hpf Ur Squamous Epith Cells <1 (0-4) /hpf Hyaline Casts 35 H (0-2) /lpf Urine Mucus Rare H (None) /hpf Disposition Clinical Impression: Opiate withdrawal, Renal failure, Hyponatremia Disposition: ADMITTED IP TO THIS HOSP Referrals: None,Stated [Primary Care Provider] - 1-2 days Time of Disposition: 19:42
[2020-01-31 18:43] LABS: Basophils % (A) 0 %; Eosinophils # (A) 0.1 k/uL (0-0.7); Eosinophils % (A) 1 %; HCT 49.8 % (39.0-53.0); HGB 16.9 gm/dL (13.0-17.5); Lymphocytes # (A) 0.9 k/uL (1.0-4.8); Lymphocytes % (A) 10 %; MCH 35.4 pg (25.0-35.0); Macrocytosis Slight; Mean Platelet Volume 7.8; Monocytes # (A) 0.6 k/uL (0-1.0); Monocytes % (A) 6 %; Neutrophils # (A) 7.9 k/uL (1.3-7.7); Neutrophils % (A) 82 %; Platelet Count 306 k/uL (150-450); RBC 4.79 m/uL (4.30-5.90); RDW 12.2 % (11.5-15.5); WBC 9.7 k/uL (3.8-10.6)
[2020-01-31 18:51] LABS: Calcium 9.6 mg/dL (8.4-10.2); Total Bilirubin 0.7 mg/dL (0.2-1.3); Total Protein 8.3 g/dL (6.3-8.2)
[2020-01-31 18:57] LABS: Potassium 4.8 mmol/L (3.5-5.1)
[2020-01-31 19:00] LABS: Appearance,Urine Clear (Clear); Bilirubin,Urine Negative (Negative); Blood,Urine Small (Negative); Color,Urine Yellow; Glucose,Urine (UA) Negative (Negative); Hyaline Casts,Urine 35 /lpf (0-2); Ketones,Urine Negative (Negative); Leukocyte Esterase,Urine Negative (Negative); Mucus,Urine Rare /hpf; Nitrite,Urine Negative (Negative); PH, Urine 5.5 (5.0-8.0); Protein,Urine 1+ (Negative); RBC,Urine <1 /hpf (0-5); Specific Gravity,Urine 1.018 (1.001-1.035); Squamous Epithelial Cell,Urine <1 /hpf (0-4); Urobilinogen,Urine <2.0 mg/dL (<2.0); WBC,Urine 4 /hpf (0-5)
[2020-01-31] MEDS ORDERED: SODIUM CHLORIDE 0.9% 1,000 ML IV ONE (19:43)
[2020-01-31] MEDS ORDERED: ONDANSETRON 4 MG/2 ML VIAL IVP PRN (19:44)
[2020-01-31] MEDS: HYDROmorphone 0.5 MG/0.5 ML SYRINGE IVP PRN (21:08)
[2020-01-31] MEDS ORDERED: SUMAtriptan SUCCINATE 50 MG TAB PO PRN (21:32)
[2020-01-31] MEDS: DIPHENOX-ATROP 2.5-0.025 MG 1 EACH TAB PO SCH (22:19)
[2020-01-31] MEDS: DICYCLOMINE 10 MG CAP PO SCH (22:19)
[2020-02-01] MEDS: HYDROmorphone 0.5 MG/0.5 ML SYRINGE IVP PRN ×4 (02:30→22:10)
[2020-02-01] MEDS: LEVOTHYROXINE 25 MCG TAB PO SCH (05:45)
[2020-02-01] MEDS: EZETIMIBE 10 MG TAB PO SCH (07:45)
[2020-02-01] MEDS: SERTRALINE 50 MG TAB PO SCH (07:45)
[2020-02-01] MEDS: DICYCLOMINE 10 MG CAP PO SCH ×3 (07:45→20:06)
[2020-02-01] MEDS: TOPIRAMATE 25 MG TAB PO SCH ×2 (07:45→20:05)
[2020-02-01] MEDS: PANTOPRAZOLE 40 MG TABLET PO SCH (07:45)
[2020-02-01] MEDS: DIPHENOX-ATROP 2.5-0.025 MG 1 EACH TAB PO SCH ×4 (07:46→20:05)
[2020-02-01] MEDS: ALBUTEROL NEBULIZED 2.5 MG/3 ML INHALATION PRN ×2 (08:38→11:47)
[2020-02-01] MEDS ORDERED: predniSONE 10 MG TAB PO SCH (09:00)
[2020-02-01] MEDS: SODIUM CHLORIDE 0.9% 1,000 ML IV SCH ×2 (13:28→20:04)
[2020-02-01 15:36] VITALS: RESP 18
[2020-02-01] MEDS ORDERED: METOPROLOL SUCCINATE (ER) 25 MG TAB.ER.24H PO SCH (21:00)
[2020-02-01] MEDS ORDERED: ATORVASTATIN 80 MG TAB PO SCH (21:00)
--- NOTE | 2020-02-01 21:29 | P.HPIM ---
History of Present Illness H&P Date: 02/01/20 Chief Complaint: Abdominal pain History of presenting complaint: This is a very pleasant 74-year-old patient of Dr. Jordana June. Chronic stable medical conditions include hyperlipidemia, hypertension, HI, osteoarthritis, hypothyroid, and has a pacemaker. Patient presented with abdominal pain going on and off for about 2 months. His: Worsening last 3-4 days. Appetite is really gone down. Denies any obvious fever or chills. Patient does smoke a pack a day and drinks about 6-7 beers on the weekend. Tired and rundown. Also some wheezing and some shortness of breath. GI was consulted. Review of systems: GEN.: Tired EYES: None HEENT: None NECK: None RESPIRATORY: As above CARDIOVASCULAR: None GASTROINTESTINAL: As above GENITOURINARY: None MUSCULOSKELETAL: Joint pains LYMPHATICS: None HEMATOLOGICAL: None PSYCHIATRY: None NEUROLOGICAL: None Past medical history to include: Hyperlipidemia, hypertension, HI 2, osteoarthritis, hypothyroid, pain in the l ower spine of the legs, irregular heart beat Social history: Lives alone. 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 Tolerating 6-7 beat over the weekend. Physical examination: VITAL SIGNS: 97.6, 46, 20, blood pressure 114/81, 95% on room air GENERAL: BMI 23.3, laying in bed tired. EYES: Pupils equal. Conjunctiva normal. HEENT: External appearance of nose and ears normal, oral cavity grossly normal. NECK: JVD not raised; masses not palpable. HEART: First and second heart sounds are normal; no edema. LUNGS: Respiratory rate increased, decreased breath sounds some wheezing. ABDOMEN: Soft, lower abdominal tenderness, no guarding or rigidity, liver spleen not palpable, no masses palpable. PSYCH: [Alert and oriented x3; mood and affect slightly anxious l. NEUROLOGICAL: Cranial nerves grossly intact; no facial asymmetry, power and sensation grossly intact. LYMPHATICS: No lymph nodes palpable in the axilla and neck INVESTIGATIONS, reviewed in the clinical context: White count 9.7 hemoglobin 16.9 platelets 306 Sodium 125 potassium 4.8 bun 34 creatinine 2.37 Amylase 126 lipase 198 UA positive for protein and some blood Assessment: -This is a patient had abdominal pain for about 2 months. Worsening the last 4 days. There is no fever no chills no white count. Abdominal exam is non- surgical. Wanted this is a ischemic bowel or mesentric ischemia -Hyperlipidemia -Essential hypertension -Coronary artery disease with prior history of HI -Primary osteoarthritis -Hypothyroid -Acute COPD exacerbation in a current smoker -Renal failure. At this point unknown if acute or chronic. Patient does have protein and some blood in the urine. Plan: Patient be started on nebulized bronchodilators, inhaled and IV steroids. GI has been consulted. Patient be put on a clear liquid diet. Lovenox for DVT prophylaxis. IV fluids. We'll check a renal ultrasound. Hydrate the patient and repeat labs in the morning. Past Medical History Past Medical History: Cancer, Chest Pain / Angina, Hyperlipidemia, Hypertension, Myocardial Infarction (HI), Osteoarthritis (OA), Syncope, Thyroid Disorder Additional Past Medical History / Comment(s): [place] X2 ("in my 30's), SKIN CA, pain lower spine and legs, rectal bleeding , irregular heart beat, low sodium, see Dr. Fink's H&P. Last Myocardial Infarction Date:: approx 40 yrs ago History of Any Multi-Drug Resistant Organisms: None Reported Past Surgical History: Back Surgery, Heart Catheterization, Hernia Repair, Orthopedic Surgery, Pacemaker, Tonsillectomy Additional Past Surgical History / Comment(s): LAMINECTOMY & PLACEMENT OF JAQUELIN ROSTIMULATOR, repositioned them later removed, ana catarats, Past Anesthesia/Blood Transfusion Reactions: Motion Sickness Type of Cardiac Device: Permanent Pacemaker Device Placement Date:: October 2017 Past Psychological History: Anxiety, Depression Smoking Status: Current every day smoker Past Alcohol Use History: None Reported Additional Past Alcohol Use History / Comment(s): started smoking at age 13 smokes 1ppd. pt states that he usually drinks alcohol on the weekend 6-7 beers, states now smoking about 1/2 ppd. Past Drug Use History: None Reported Additional Drug Use History / Comment(s): denies - Past Family History Mother Family Medical History: Cancer Father Family Medical History: Cancer Brother(s) Family Medical History: Cancer Medications and Allergies Home Medications Medication Instructions Recorded Confirmed Type Atorvastatin [Lipitor] 80 mg PO HS 09/20/14 01/31/20 History Esomeprazole Magnesium [NexIUM] 40 mg PO DAILY 01/22/17 01/31/20 History Levothyroxine Sodium [Synthroid] 25 mcg PO DAILY 01/22/17 01/31/20 History Ergocalciferol (Vitamin D2) 50,000 unit PO MO 07/15/17 01/31/20 History [Vitamin D2] oxyCODONE HCL/ACETAMINOPHEN 1 tab PO Q4H PRN 07/16/17 01/31/20 History [Percocet 10-325 mg] Alendronate Sodium [Fosamax] 70 mg PO Q7D 06/21/18 01/31/20 History Diphenoxylate HCl/Atropine 2 tab PO QID 06/21/18 01/31/20 History [Lomotil 2.5-0.025 mg Tablet] Metoprolol Succinate [Toprol XL] 12.5 mg PO HS 05/05/19 02/01/20 History Albuterol Sulfate [Ventolin HFA] 2 puff INHALATION RT-Q4H PRN 01/31/20 01/31/20 History Dicyclomine [Bentyl] 10 mg PO TID 01/31/20 01/31/20 History Ezetimibe [Zetia] 10 mg PO DAILY 01/31/20 01/31/20 History SUMAtriptan SUCCINATE [Imitrex] 50 mg PO TID PRN 01/31/20 01/31/20 History Sertraline [Zoloft] 50 mg PO DAILY 01/31/20 01/31/20 History Topiramate 50 mg PO BID 01/31/20 01/31/20 History predniSONE See Taper PO DAILY 01/31/20 01/31/20 History Allergies Allergy/AdvReac Type Severity Reaction Status Date / Time cefazolin Allergy Rash/Hives Verified 01/31/20 20:30 cefazolin sodium [From [facility]] Allergy Rash/Hives Verified 01/31/20 20:30 morphine AdvReac Nausea & Verified 01/31/20 20:30 Vomiting Physical Exam Vitals: Vital Signs Temp Pulse Pulse Resp BP BP Pulse Ox 02/01/20 08:52 90 02/01/20 08:38 90 02/01/20 07:00 97.8 F 77 16 135/84 94 L 02/01/20 02:26 97.1 F L 43 L 19 148/85 98 01/31/20 23:41 16 01/31/20 19:54 16 142/78 98 01/31/20 19:35 93 16 141/87 97 01/31/20 17:20 97.6 F 46 L 20 114/81 95 Intake and Output 01/31/20 02/01/20 02/01/20 22:59 06:59 14:59 Intake Total 800 Balance 800 Intake: Intake, IV Titration 800 Amount Sodium Chloride 0.9% 1, 800 000 ml @ 100 mls/hr IV . Q10H ONE Rx#:[id number] Other: Voiding Method Toilet Toilet # Voids 1 Weight 63.503 kg Results CBC & Chem 7: 01/31/20 18:25 01/31/20 18:25 Labs: Abnormal Lab Results - Last 24 Hours (Table) 01/31/20 01/31/20 01/31/20 Range/Units 18:25 18:25 18:25 MCV 104.0 H (80.0-100.0) fL MCH 35.4 H (25.0-35.0) pg Neutrophils # 7.9 H (1.3-7.7) k/uL Lymphocytes # 0.9 L (1.0-4.8) k/uL Sodium 125 L (137-145) mmol/L Chloride 96 L (98-107) mmol/L Carbon Dioxide 10 L (22-30) mmol/L BUN 34 H (9-20) mg/dL Creatinine 2.37 H (0.66-1.25) mg/dL Glucose 112 H (74-99) mg/dL Total Protein 8.3 H (6.3-8.2) g/dL Amylase 126 H (30-110) U/L Urine Protein 1+ H (Negative) Urine Blood Small H (Negative) Hyaline Casts 35 H (0-2) /lpf Urine Mucus Rare H (None) /hpf Thrombosis Risk Factor Assmnt - Choose All That Apply Other Risk Factors: Yes Each Risk Factor Represents 2 Points: Age 61-74 years Thrombosis Risk Factor Assessment Total Risk Factor Score: 2 Thrombosis Risk Factor Assessment Level: Low Risk
[2020-02-01] MEDS ORDERED: ENOXAPARIN 30 MG/0.3 ML SYRINGE SQ SCH (21:45)
[2020-02-01] MEDS: methylPREDNISolone SOD SUCCI 40 MG/ML 1 ML VIAL IV SCH ×2 (22:10→22:48)
[2020-02-01] MEDS: SODIUM CHLORIDE 0.9% 1,000 ML with SODIUM BICARB (1 MEQ/ML) 50 ML IV SCH ×2 (22:42)
--- NOTE | 2020-02-01 23:35 | CONS ---
CONSULTATION REASON FOR CONSULTATION: Abdominal pain and diarrhea. HISTORY OF PRESENT ILLNESS: The patient is a 74 -year-old pleasant white male came to the emergency room complaining of lower abdominal pain for the last 2 weeks duration. He was also having diarrhea for the last 2 weeks. Bowel movements anywhere from 4 to 5 a day that are loose to water in consistency but denies any blood or mucous in the stool. He does complain of abdominal pain mostly in the lower abdominal area in the epigastric area. No nausea, vomiting. Denies any rectal bleeding or melena. Denies being started on any new medications recently. No recent antibiotic use. He never had these symptoms in the past. He recalls having a colonoscopy by Dr. Chavarria in 2017. PAST MEDICAL HISTORY: Significant for hypothyroidism, gastroesophageal reflux disease, hypertension, hyperlipidemia, history of coronary artery disease status post NE in the past, skin cancer. PAST SURGICAL HISTORY: Back surgery, cardiac catheterization, hernia repair, pacemaker implantation, tonsillectomy. MEDICATIONS: At home include Toprol, paroxetine, Pamelor, aspirin, Fosamax, Percocet, vitamin D2, Lipitor, Nitrostat, Nexium, Synthroid, Claritin, and Valtrex. ALLERGIES: TO ANCEF AND MORPHINE. SOCIAL HISTORY: History of smoking in the past. No alcohol use. FAMILY HISTORY: Mother had some kind of cancer and father also had some kind of cancer. REVIEW OF SYSTEMS: CARDIOPULMONARY: He denies any chest pain, shortness of breath. GENITOURINARY: No dysuria or hematuria. MUSCULOSKELETAL unremarkable. SKIN unremarkable. ENDOCRINE unremarkable. PSYCHIATRIC unremarkable. NEUROLOGY unremarkable. ENT/vision unremarkable. CONSTITUTIONAL: Weight loss of 20 pounds. No fever, chills, night sweats. PHYSICAL EXAMINATION: He appears comfortable. No apparent distress. Vital signs are stable. Blood pressure is 114/81, pulse is 46, temperature 97.6 HEENT examination unremarkable. Conjunctivae pink. Sclerae anicteric. Oral cavity no lesions. NECK: No JVD or lymph node enlargement. CHEST: Clear to auscultation. HEART: Regular rate and rhythm. ABDOMEN: Soft. There was very minimal tenderness in the lower abdominal area and mild tenderness in the epigastric area. EXTREMITIES: No pedal edema. Skin no rashes. NEUROLOGIC: Alert and oriented x3. No focal deficits. LABS: At the time of admission the hospital WBC 9.7, hemoglobin 16.9, platelets normal. Basic metabolic panel shows sodium of 125, potassium 4.8, Chloride 96, BUN 34, creatinine 2.37. AST and ALT are within normal limits. Alkaline phosphatase and T- bilirubin are normal. Amylase and lipase are normal. C difficile toxin pending. IMPRESSION: 1. The patient presents to the hospital with lower abdominal pain associated with diarrhea for the last 2 weeks duration. He has been having a 4-5 the mucous in the stool. He denies any recent antibiotic use. Denies any recent travel history. He did mention he had a colonoscopy by Dr. Fuller about 2 years ago that showed some diverticulosis, but otherwise unremarkable. At this time, most likely dealing with acute infectious colitis. 2. Hyponatremia. 3. History of hypothyroidism. RECOMMENDATIONS: 1. Obtain stool studies including C difficile toxin and cultures. 2. The patient was already started on dicyclomine 10 mg 3 times daily and we can continue the same. 3. Start him on a clear liquid diet and advance as tolerated. 4. No plans on any endoscopic intervention at the present time. 5. We will continue to follow with you closely during his hospital stay. MMODL / IJN: [id number] /
[2020-02-02] MEDS: IPRATROPIUM-ALBUTEROL 3 ML NEB INHALATION SCH ×3 (00:16→11:21)
[2020-02-02] MEDS: SODIUM CHLORIDE 0.9% 1,000 ML with SODIUM BICARB (1 MEQ/ML) 50 ML IV SCH ×4 (04:52→11:59)
[2020-02-02] MEDS: LEVOTHYROXINE 25 MCG TAB PO SCH (04:53)
[2020-02-02] MEDS: HYDROmorphone 0.5 MG/0.5 ML SYRINGE IVP PRN ×2 (04:53→10:38)
[2020-02-02 07:10] LABS: Glucose,Whole Blood 107 mg/dL (75-99)
[2020-02-02] MEDS: INSULIN ASPART (NovoLOG) 100 UNIT/ML VIAL SQ SCH ×2 (07:12→11:57)
[2020-02-02 07:28] VITALS: BP 161/82; TEMP 97.5
[2020-02-02] MEDS: SERTRALINE 50 MG TAB PO SCH (07:50)
[2020-02-02] MEDS: DICYCLOMINE 10 MG CAP PO SCH (07:50)
[2020-02-02] MEDS: PANTOPRAZOLE 40 MG TABLET PO SCH (07:50)
[2020-02-02] MEDS: EZETIMIBE 10 MG TAB PO SCH (07:50)
[2020-02-02] MEDS: methylPREDNISolone SOD SUCCI 40 MG/ML 1 ML VIAL IV SCH (07:50)
[2020-02-02] MEDS: DIPHENOX-ATROP 2.5-0.025 MG 1 EACH TAB PO SCH ×2 (07:50→11:59)
[2020-02-02] MEDS: TOPIRAMATE 25 MG TAB PO SCH (07:50)
[2020-02-02 09:36] LABS: African American GFR (CKD) >90 (>60 ml/min/1.73 sqM); Anion Gap 10 mmol/L; Blood Urea Nitrogen 18 mg/dL (9-20); Calcium 7.5 mg/dL (8.4-10.2); Carbon Dioxide 14 mmol/L (22-30); Chloride 112 mmol/L (98-107); Glucose 109 mg/dL (74-99); LDH 387 U/L (313-618); Non-African American GFR(CKD) 85 (>60 ml/min/1.73 sqM); Potassium 3.7 mmol/L (3.5-5.1); Sodium 136 mmol/L (137-145)
--- NOTE | 2020-02-02 09:48 | US ---
EXAMINATION TYPE: US abdomen complete DATE OF EXAM: 02/02/2020 COMPARISON: CT dated 03/03/2019 CLINICAL HISTORY: abdominal pain. Pt states generalized ABD pain EXAM MEASUREMENTS: Liver Length: 13.6 cm Gallbladder Wall: 0.2 cm CBD: 0.6 cm Spleen: 8.4 cm Right Kidney: 10.2 x 5.3 x 5.0 cm Left Kidney: 9.8 x 4.9 x 5.0 cm Pt very gassy Pancreas: Obscured by bowel gas Liver: Visualized mostly intercostally, limited visualization shows no abnormality Gallbladder: wnl Evidence for sonographic Castellanos's sign: no CBD: wnl Spleen: wnl Right Kidney: Cyst upper pole= 2.4 x 1.9 x 2.9 cm Left Kidney: wnl Upper IVC: wnl Abd Aorta: Known AAA with mural thrombus, distal measurements= 3.8 x 4.4 cm The liver is homogenous. There is no evidence of cholelithiasis. Common bile duct is unremarkable . The spleen is unremarkable. Kidneys are symmetric and free of hydronephrosis. IMPRESSION: 1. Known distal abdominal aortic aneurysm with mural thrombus and turbulent flow. This measures up to 3.8 x 4.4 cm in dimension and was measured at 4.2 cm on the prior CT of 03/03/2019. 2. Pancreas is obscured by bowel gas. 3. Right renal cyst measuring 2.9 cm.
[2020-02-02 11:31] VITALS: PULSE 74
[2020-02-02 11:38] LABS: Glucose,Whole Blood 131 mg/dL (75-99)
--- NOTE | 2020-02-02 22:11 | P.DS ---
Providers Date of admission: 01/31/20 19:43 Expected date of discharge: 02/02/20 Attending physician: Jerrell Simpson Consults: 02/01/20 12:32 Consult Physician Routine Consulting Provider: Dena Garcia Consult Reason/Comments: abdominal pain Do you want consulting provider notified?: Yes Primary care physician: Stated None Hospital Course: Chief Complaint: Abdominal pain History of presenting complaint: This is a very pleasant 74-year-old patient of Dr. Jordana June. Chronic stable medical conditions include hyperlipidemia, hypertension, PA, osteoarthritis, hypothyroid, and has a pacemaker. Patient presented with abdominal pain going on and off for about 2 months. His: Worsening last 3-4 days. Appetite is really gone down. Denies any obvious fever or chills. Patient does smoke a pack a day and drinks about 6-7 beers on the weekend. Tired and rundown. Also some wheezing and some shortness of breath. GI was consulted. admitted with COPD exacerbation and possible IBS flareup. acute kidney injury. Likely prerenal Treated with bronchodilator steroids. Today-discussed with Beatriz from GI. WE'LL DC. Patient feeling much better. Tolerating diet. Breathing improved. Consultation: Dr. Sarika Garcia from GI Physical examination: VITAL SIGNS: 97.5, 68, 18, blood pressure 161/82, 97% on room air GENERAL: BMI 23.3,sitting up, comfortable EYES: Pupils equal. Conjunctiva normal. HEENT: External appearance of nose and ears normal, oral cavity grossly normal. NECK: JVD not raised; masses not palpable. HEART: First and second heart sounds are normal; no edema. LUNGS: Respiratory rate inormal, decreased breath sounds . ABDOMEN: Soft, no tenderness, no guarding or rigidity, liver spleen not palpable, no masses palpable. PSYCH: [Alert and oriented x3; mood and affect slightly anxious l. INVESTIGATIONS, reviewed in the clinical context: Sodium 136 potassium 3.7 creatinine 0.9 Previous testing White count 9.7 hemoglobin 16.9 platelets 306 Sodium 125 potassium 4.8 bun 34 creatinine 2.37 Amylase 126 lipase 198 UA positive for protein and some blood Assessment: -possible IBS flareup, POA -Hyponatremia, likely hypoosmolar from decreased solid intake, POA -Acute kidney injury likely prerenal, POA -Hyperlipidemia -Essential hypertension -Coronary artery disease with prior history of PA -Primary osteoarthritis -Hypothyroid -Acute COPD exacerbation in a current smoker, POA disposition: Home Patient Condition at Discharge: Stable Plan - Discharge Summary Discharge Rx Participant: Yes New Discharge Prescriptions: New Ipratropium-Albuterol Nebulize [Duoneb 0.5 mg-3 mg/3 ml Soln] 3 ml INHALATION TID #90 ml predniSONE 10 mg PO DAILY #30 tab Psyllium Husk 100% [Metamucil Packet] 1 packet PO DAILY #30 packet Continue Atorvastatin [Lipitor] 80 mg PO HS Levothyroxine Sodium [Synthroid] 25 mcg PO DAILY Esomeprazole Magnesium [NexIUM] 40 mg PO DAILY Ergocalciferol (Vitamin D2) [Vitamin D2] 50,000 unit PO MO oxyCODONE HCL/ACETAMINOPHEN [Percocet 10-325 mg] 1 tab PO Q4H PRN PRN Reason: Pain Alendronate Sodium [Fosamax] 70 mg PO Q7D Metoprolol Succinate [Toprol XL] 12.5 mg PO HS predniSONE See Taper PO DAILY SUMAtriptan SUCCINATE [Imitrex] 50 mg PO TID PRN PRN Reason: Migraine Headache Topiramate 50 mg PO BID Ezetimibe [Zetia] 10 mg PO DAILY Albuterol Sulfate [Ventolin HFA] 2 puff INHALATION RT-Q4H PRN PRN Reason: Wheezing Sertraline [Zoloft] 50 mg PO DAILY Dicyclomine [Bentyl] 10 mg PO TID Discontinued Diphenoxylate HCl/Atropine [Lomotil 2.5-0.025 mg Tablet] 2 tab PO QID Discharge Medication List Atorvastatin [Lipitor] 80 mg PO HS 09/20/14 [History] Esomeprazole Magnesium [NexIUM] 40 mg PO DAILY 01/22/17 [History] Levothyroxine Sodium [Synthroid] 25 mcg PO DAILY 01/22/17 [History] Ergocalciferol (Vitamin D2) [Vitamin D2] 50,000 unit PO MO 07/15/17 [History] oxyCODONE HCL/ACETAMINOPHEN [Percocet 10-325 mg] 1 tab PO Q4H PRN 07/16/17 [History] Alendronate Sodium [Fosamax] 70 mg PO Q7D 06/21/18 [History] Metoprolol Succinate [Toprol XL] 12.5 mg PO HS 05/05/19 [History] Albuterol Sulfate [Ventolin HFA] 2 puff INHALATION RT-Q4H PRN 01/31/20 [History] Dicyclomine [Bentyl] 10 mg PO TID 01/31/20 [History] Ezetimibe [Zetia] 10 mg PO DAILY 01/31/20 [History] SUMAtriptan SUCCINATE [Imitrex] 50 mg PO TID PRN 01/31/20 [History] Sertraline [Zoloft] 50 mg PO DAILY 01/31/20 [History] Topiramate 50 mg PO BID 01/31/20 [History] predniSONE See Taper PO DAILY 01/31/20 [History] Ipratropium-Albuterol Nebulize [Duoneb 0.5 mg-3 mg/3 ml Soln] 3 ml INHALATION TID #90 ml 02/02/20 [Rx] Psyllium Husk 100% [Metamucil Packet] 1 packet PO DAILY #30 packet 02/02/20 [Rx] predniSONE 10 mg PO DAILY #30 tab 02/02/20 [Rx] Follow up Appointment(s)/Referral(s): Dena Garcia MD [STAFF PHYSICIAN] - 02/13/20 9:00 am Mario June DO [STAFF PHYSICIAN] - 02/06/20 11:30 am Patient Instructions/Handouts: Acute Abdominal Pain (DC)
[2020-02-06] MEDS ORDERED: ERGOCALCIFEROL 50,000 UNIT CAP PO SCH (21:32)
[2020-02-07] MEDS ORDERED: Alendronate Sodium [Fosamax] 70 MG PO SCH (07:00)
== END 2020-02-02 14:16 | disposition home or self-care (01) | DRG 392 ==
LOC: EC 17:15 → 4SSUR 19:43
PROVIDERS: ADMIT Hospitalist; ATTEND Hospitalist
DX: K58.0 Irritable bowel syndrome with diarrhea (principal); A09 Infectious gastroenteritis and colitis, unspecified; E87.1 Hypo-osmolality and hyponatremia; E87.2 Acidosis; J44.1 Chronic obstructive pulmonary disease with (acute) exacerbation; N17.9 Acute kidney failure, unspecified; E03.9 Hypothyroidism, unspecified; E78.5 Hyperlipidemia, unspecified; F17.210 Nicotine dependence, cigarettes, uncomplicated; Z79.890 Hormone replacement therapy; Z79.891 Long term (current) use of opiate analgesic; Z79.899 Other long term (current) drug therapy; F32.9 Major depressive disorder, single episode, unspecified; F41.9 Anxiety disorder, unspecified; I10 Essential (primary) hypertension; I25.10 Atherosclerotic heart disease of native coronary artery without angina pectoris; I25.2 Old myocardial infarction; K57.90 Diverticulosis of intestine, part unspecified, without perforation or abscess without bleeding; M19.91 Primary osteoarthritis, unspecified site; Z79.82 Long term (current) use of aspirin; Z79.83 Long term (current) use of bisphosphonates; Z95.0 Presence of cardiac pacemaker; R31.9 Hematuria, unspecified
CPT/HCPCS: 36415; 76700; 80048; 80053; 81001; 82150; 83605; 83615; 83690; 85025; 87045; 87046; 87324; 94640; 96361; 96374; 96375; 99285

== ENCOUNTER → 2020-05-22 | Outpatient (CLI) | payer MEDICARE, OTHER ==
--- NOTE | 2020-05-22 17:11 | CT ---
EXAMINATION TYPE: CT brain wo con DATE OF EXAM: 05/22/2020 COMPARISON: 12/02/2019 HISTORY: 74-year-old male Fall 3 days ago with posterior injury and pain. G44.52, new daily persisten t headaches. TECHNIQUE: Examination was done in axial plane without intravenous contrast. Coronal and sagittal r econstructions performed. CT DLP: 1162.8 mGycm Automated exposure control for dose reduction was used. FINDINGS: There is no evidence of acute intracranial hemorrhage, acute ischemic changes, mass, mass-effect, or extra-axial fluid collection. There is no effacement of cerebral sulci or basal subarachnoid cister ns. There is no hydrocephalus. There is no midline shift. [place]-white matter distinction is preserv ed. Moderate patchy and confluent white matter hypodensities in both cerebral hemispheres. Mild cerebral cortical atrophy. Atherosclerotic calcifications within the bilateral carotid siphons. Old blowout fracture of the left medial orbital wall. Globes appear intact. Mastoid air cells well pn eumatized. Cerumen left external auditory canal. Leftward nasal septal deviation. Visualized paranasa l sinuses appear clear. IMPRESSION: Moderate patchy and confluent burden of chronic small vessel ischemic disease. No acute intracranial abnormality seen. Old blowout fracture of the left medial orbital wall.
== END | disposition home or self-care (01) ==
LOC: RADCTMAIN 13:57
PROVIDERS: ATTEND Family Medicine
DX: S02.32XA Fracture of orbital floor, left side, initial encounter for closed fracture (principal); I73.9 Peripheral vascular disease, unspecified; Z91.81 History of falling
CPT/HCPCS: 70450

== ENCOUNTER → 2020-06-29 | Outpatient (CLI) | payer MEDICARE, OTHER ==
[2020-06-29 08:51] LABS: African American GFR (CKD) >90 (>60 ml/min/1.73 sqM); Blood Urea Nitrogen 9 mg/dL (9-20); Non-African American GFR(CKD) >90 (>60 ml/min/1.73 sqM)
--- NOTE | 2020-06-29 11:59 | CT ---
EXAMINATION TYPE: CT abdomen pelvis wo/w con DATE OF EXAM: 06/29/2020 COMPARISON: CT March 03, 2019 and older CTs HISTORY: Significant abnormal weight loss. CT DLP: 718 mGycm, Automated Exposure Control for Dose Reduction was Utilized. CONTRAST: CT scan of the abdomen and pelvis is performed with oral and without and with IV Contrast, patient in jected with 100 mL of Isovue 300. FINDINGS: LUNG BASES: Right-sided pacemaker wires partially imaged. Mild to moderate left greater than right li near scarring and atelectasis redemonstrated LIVER/GB: Gallbladder has distended margins on current study. PANCREAS: No significant abnormality is seen. SPLEEN: No significant abnormality is seen. ADRENALS: No significant abnormality is seen. KIDNEYS: Central calcifications in both kidneys favor vascular etiology. Symmetric cortical medullary uptake and excretion from both kidneys without hydronephrosis seen bilaterally. A few simple-appeari ng thin-walled cysts bilaterally are redemonstrated BOWEL: Oral contrast does not reach level of the distal ileum making evaluation of distal bowel subop timal. Moderate diffuse prominence of gastric folds is redemonstrated similar to prior CT. No suspici ous small or large bowel dilatation. Some contrast filled prominence of left-sided jejunal loops. [place] e fluid prominence of the terminal ileum fecal material seen in nondistended colon. Few scattered air -fluid and contrast levels in the small bowel loops. PROSTATE/SEMINAL VESICLES: Mildly enlarged prostate gland. Adjacent scattered pelvic phleboliths. LYMPH NODES: No greater than 1cm abdominal or pelvic lymph nodes are appreciated. OSSEOUS STRUCTURES: Demineralization is present. Mild multilevel spurring. [id number] narrowing of both hip joints. OTHER: Persistent long segment AAA beginning at level of renal arteries extending up to level of bifu rcation. AAA up to 4.4 cm axial image 38 series 7. Significant noncalcified plaque or intramural thro mbosis noted. Interval progression in both findings from most recent CT. Moderate to severe calcified plaque in bilateral iliac vessels. IMPRESSION: 1. No suspicious new mass or adenopathy to suggest neoplasm. 2. Interval progression of AAA up to 4.4 cm with worsening intramural thrombus. Advise vascular surgi annie referral. 3. Overall nonspecific but likely nonobstructive bowel gas pattern. Suspect underlying moderate to se yung diffuse gastritis, correlate clinically.
== END | disposition home or self-care (01) ==
LOC: RADCTMAIN 08:11
PROVIDERS: ATTEND Internal Medicine Gastroenterology
DX: I71.4 Abdominal aortic aneurysm, without rupture (principal); R63.4 Abnormal weight loss
CPT/HCPCS: 82565; 84520; 74178; 36415; Q9967 ×2

== ENCOUNTER → 2020-09-20 | Outpatient (CLI) | payer MEDICARE, OTHER ==
[~2020-09-20] MED LIST changes: -CLINDAMYCIN 600 MG in SODIUM CHLORIDE 0.9% IRRIGATIO 250 ML IRRIGATION ONE; -CLINDAMYCIN 900 MG in DEXTROSE 5% IN WATER 50 ML IVPB ONE; +DENOSUMAB 60 MG/ML 1 ML SYRINGE SQ NR; -SODIUM CHLORIDE 0.9% 1,000 ML IV SCH
[2020-09-20 09:52] VITALS: BP 164/89; RESP 16; TEMP 98.4
[2020-09-20 10:15] VITALS: PULSE 108
== END | disposition home or self-care (01) ==
LOC: PROCWHC3 09:40
PROVIDERS: ATTEND Family Medicine
DX: M81.0 Age-related osteoporosis without current pathological fracture (principal)
CPT/HCPCS: 96372; J0897

== ENCOUNTER → 2020-10-15 | Outpatient (CLI) | payer MEDICARE, OTHER ==
[2020-10-15 15:56] LABS: African American GFR (CKD) >90 (>60 ml/min/1.73 sqM); Blood Urea Nitrogen 9 mg/dL (9-20); Non-African American GFR(CKD) >90 (>60 ml/min/1.73 sqM)
--- NOTE | 2020-10-16 18:10 | CT ---
EXAMINATION TYPE: CT chest w con DATE OF EXAM: 10/15/2020 COMPARISON: 05/05/2019 and 03/03/2019. CT abdomen 06/29/2020 HISTORY: 75-year-old male R63.4, Abnormal weight loss. TECHNIQUE: Contiguous axial scanning of the chest after the administration of 100ml mL of Isovue 300. Coronal/sagittal reconstructions performed. CT DLP: 392mGycm. Automatic exposure control utilized for a dose reduction. FINDINGS: Left anterior chest wall pacemaker generator with right atrial and 2 right ventricular leads. Heart normal size without pericardial effusion. LAD and RCA coronary artery calcifications are presen t. Aortic root is ectatic at 3.7 cm. Mild atherosclerotic arch calcifications with conventional branchin g anatomy. No thoracic lymphadenopathy by CT size criteria. Mild centrilobular emphysema. Stable 4 mm peripheral right upper lobe pulmonary nodule, axial image 20. Redemonstrated streaky area s of bibasilar scarring. No consolidation or pleural effusion. Visualized upper abdomen shows partial visualization of an infrarenal abdominal aortic aneurysm on th e last axial image 67. Multiple renal cortical cysts measuring up to 2.5 cm on either side. There may be diffuse gastric fold thickening. Diffuse low-density thickening of the left adrenal gland is unchanged. Bones: Old healed left lateral rib fracture deformities. Ununited, mildly offset fracture of the left posterior 11th rib was present on 06/29/2020 as well. IMPRESSION: 1. COPD with mild emphysema. Stable strandy bibasilar areas of scarring in the lungs. No acute pulmo nary process. 2. LAD and RCA coronary artery calcifications. 3. Marked diffuse gastric fold thickening. Given the patient's weight loss, consider direct visualiza tion. Underlying gastritis is suspected. 4. Partial visualization of the patient's known infrarenal abdominal aortic aneurysm on the last imag e. 5. 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
== END | disposition home or self-care (01) ==
LOC: RADCTMAIN 15:27
PROVIDERS: ATTEND Family Medicine
DX: J43.9 Emphysema, unspecified (principal); J98.4 Other disorders of lung; I25.10 Atherosclerotic heart disease of native coronary artery without angina pectoris; Z87.81 Personal history of (healed) traumatic fracture; Z13.9 Encounter for screening, unspecified; R63.4 Abnormal weight loss; Z68.21 Body mass index [BMI] 21.0-21.9, adult
CPT/HCPCS: 82565; 84520; 71260; 36415; Q9967

== ENCOUNTER 2021-06-17 04:09 | Emergency (ER) | payer MEDICARE, OTHER ==
--- NOTE | 2021-06-17 04:39 | ED ---
Trauma HPI - General Stated Complaint: ETOH Time Seen by Provider: 06/17/21 04:14 Source: family Limitations: altered mental status - History of Present Illness Complaint: fall -: hour(s) Loss of Consciousness: unsure Location: head, chest Location - Extremities: Left: Hand Consistency: constant Context: mechanical fall - Related Data Home Medications Medication Instructions Recorded Confirmed oxyCODONE HCL/ACETAMINOPHEN 1 tab PO Q6H PRN 07/16/17 06/17/21 [Percocet 10-325 mg] Dicyclomine [Bentyl] 10 mg PO TID 01/31/20 06/17/21 Aspirin EC [Ecotrin Low Dose] 81 mg PO DAILY 06/17/21 06/17/21 Budesonide [Budesonide EC] 6 mg PO DAILY 06/17/21 06/17/21 Levothyroxine Sodium [Synthroid] 25 mcg PO MOLINA 06/17/21 06/17/21 Levothyroxine Sodium [Synthroid] 50 mcg PO MOTUWETHFRSA 06/17/21 06/17/21 Loperamide [Imodium] 4 mg PO Q6H PRN 06/17/21 06/17/21 Metoprolol Succinate (ER) [Toprol 50 mg PO DAILY 06/17/21 06/17/21 Xl] Naloxone HCl [Narcan] 4 mg NASAL ONCE PRN 06/17/21 06/17/21 Nitroglycerin Sl Tabs [Nitrostat] 0.4 mg SUBLINGUAL Q5M PRN 06/17/21 06/17/21 amLODIPine [Norvasc] 5 mg PO DAILY 06/17/21 06/17/21 Allergies Allergy/AdvReac Type Severity Reaction Status Date / Time cefazolin Allergy Rash/Hives Verified 06/17/21 07:19 cefazolin sodium [From Ancef] Allergy Rash/Hives Verified 06/17/21 07:19 morphine AdvReac Nausea & Verified 06/17/21 07:19 Vomiting Review of Systems ROS Statement: Those systems with pertinent positive or pertinent negative responses have been documented in the HPI. ROS Other: All systems not noted in ROS Statement are negative. Cardiovascular: Reports: chest pain Gastrointestinal: Denies: abdominal pain Musculoskeletal: Denies: back pain Neurological: Denies: headache Past Medical History Past Medical History: Cancer, Chest Pain / Angina, Hyperlipidemia, Hypertension, Myocardial Infarction ([place]), Osteoarthritis (OA), Syncope, Thyroid Disorder Additional Past Medical History / Comment(s): [place] X2 ("in my 30's), SKIN CA, pain lower spine and legs, rectal bleeding , irregular heart beat, low sodium, see Dr. Fink's H&P. Last Myocardial Infarction Date:: approx 40 yrs ago History of Any Multi-Drug Resistant Organisms: None Reported Past Surgical History: Back Surgery, Heart Catheterization, Hernia Repair, Orthopedic Surgery, Pacemaker, Tonsillectomy Additional Past Surgical History / Comment(s): LAMINECTOMY & PLACEMENT OF NEUROSTIMULATOR, repositioned them later removed, ana catarats, Past Anesthesia/Blood Transfusion Reactions: Motion Sickness Type of Cardiac Device: Permanent Pacemaker Device Placement Date:: October 2017 Past Psychological History: Anxiety, Depression Smoking Status: Smoker, current status unknown Past Alcohol Use History: None Reported Additional Past Alcohol Use History / Comment(s): started smoking at age 13 smokes 1ppd. pt states that he usually drinks alcohol on the weekend 6-7 beers, states now smoking about 1/2 ppd. Past Drug Use History: None Reported Additional Drug Use History / Comment(s): denies - Past Family History Mother Family Medical History: Cancer Additional Family Medical History / Comment(s): cva with residual left leg weakness April 2020 Father Family Medical History: Cancer Brother(s) Family Medical History: Cancer General Exam General appearance: alert, appears intoxicated Head exam: Present: atraumatic, normocephalic Eye exam: Present: normal appearance, PERRL, nystagmus. Absent: scleral icterus, conjunctival injection ENT exam: Present: mucous membranes dry Neck exam: Present: normal inspection, full ROM. Absent: tenderness, meningismus Respiratory exam: Present: normal lung sounds bilaterally, chest wall tenderness. Absent: respiratory distress, wheezes, rales, rhonchi, stridor, accessory muscle use Cardiovascular Exam: Present: normal rhythm, tachycardia, normal heart sounds. Absent: systolic murmur, diastolic murmur, rubs, gallop GI/Abdominal exam: Present: soft. Absent: distended, tenderness, guarding, rebound, rigid, mass Back exam: Present: normal inspection. Absent: CVA tenderness (R), CVA tenderness (L), vertebral tenderness Neurological exam: Present: alert, CN II-XII intact. Absent: motor sensory deficit Skin exam: Present: warm, dry, normal color. Absent: rash Course Vital Signs 06/17/21 04:30 Temperature 97.7 F Pulse Rate 75 Respiratory 20 Rate Blood Pressure 157/127 O2 Sat by Pulse 98 Oximetry Procedures - Laceration Laceration #1 Consent Obtained: verbal consent Indication: laceration Site: hand Size (cm): 4 Description: linear Type of Sutures: other (Skin glue) Size of Sutures: other (Adhesive) Technique: simple, interrupted Patient Tolerated Procedure: well, no complications Medical Decision Making - Medical Decision Making Patient is 75-year-old man presenting after fall. He does have left rib fracture as well as fracture of the distal phalanx of the left thumb, which is nondisplaced. The patient is splinted in position of comfort and to follow-up with orthopedic surgery. The patient requested that the left hand laceration the closed with adhesive with this possible and given that he will have a splint placed near location this may be immobilized enough that a that skin glue works. - Lab Data Result diagrams: 06/17/21 04:45 06/17/21 04:45 Lab Results 06/17/21 06/17/21 06/17/21 Range/Units 04:45 04:45 04:45 WBC 6.0 (3.8-10.6) k/uL RBC 4.70 (4.30-5.90) m/uL Hgb 16.5 (13.0-17.5) gm/dL Hct 50.4 (39.0-53.0) % MCV 107.2 H (80.0-100.0) fL MCH 35.1 H (25.0-35.0) pg MCHC 32.8 (31.0-37.0) g/dL RDW 14.3 (11.5-15.5) % Plt Count 246 (150-450) k/uL MPV 7.0 Neutrophils % 61 % Lymphocytes % 25 % Monocytes % 9 % Eosinophils % 2 % Basophils % 1 % Neutrophils # 3.6 (1.3-7.7) k/uL Lymphocytes # 1.5 (1.0-4.8) k/uL Monocytes # 0.5 (0-1.0) k/uL Eosinophils # 0.1 (0-0.7) k/uL Basophils # 0.1 (0-0.2) k/uL Macrocytosis Moderate PT 10.4 (9.0-12.0) sec INR 1.0 (<1.2) APTT 22.4 (22.0-30.0) sec Sodium (137-145) mmol/L Potassium (3.5-5.1) mmol/L Chloride (98-107) mmol/L Carbon Dioxide (22-30) mmol/L Anion Gap mmol/L BUN (9-20) mg/dL Creatinine (0.66-1.25) mg/dL Est GFR (CKD-EPI)AfAm (>60 ml/min/1.73 sqM) Est GFR (CKD-EPI)NonAf (>60 ml/min/1.73 sqM) Glucose (74-99) mg/dL Plasma Lactic Acid Gerardo (0.7-2.0) mmol/L Calcium (8.4-10.2) mg/dL Total Bilirubin (0.2-1.3) mg/dL AST (17-59) U/L ALT (4-49) U/L Alkaline Phosphatase (38-126) U/L Troponin I (0.000-0.034) ng/mL Total Protein (6.3-8.2) g/dL Albumin (3.5-5.0) g/dL Urine Color Light Yellow Urine Appearance Clear (Clear) Urine pH 6.5 (5.0-8.0) Ur Specific [place] 1.003 (1.001-1.035) Urine Protein Negative (Negative) Urine Glucose (UA) Negative (Negative) Urine Ketones Negative (Negative) Urine Blood Negative (Negative) Urine Nitrite Negative (Negative) Urine Bilirubin Negative (Negative) Urine Urobilinogen <2.0 (<2.0) mg/dL Ur Leukocyte Esterase Negative (Negative) Urine Opiates Screen Not Detected (NotDetected) Ur Oxycodone Screen Detected H (NotDetected) Urine Methadone Screen Not Detected (NotDetected) Ur Propoxyphene Screen Not Detected (NotDetected) Ur Barbiturates Screen Not Detected (NotDetected) U Tricyclic Antidepress Not Detected (NotDetected) Ur Phencyclidine Scrn Not Detected (NotDetected) Ur Amphetamines Screen Not Detected (NotDetected) U Methamphetamines Scrn Not Detected (NotDetected) U Benzodiazepines Scrn Not Detected (NotDetected) Urine Cocaine Screen Not Detected (NotDetected) U Marijuana (THC) Screen Detected H (NotDetected) Serum Alcohol mg/dL Blood Type Blood Type Recheck Bld Type Recheck Status Antibody Screen Spec Expiration Date 06/17/21 06/17/21 06/17/21 Range/Units 04:45 04:45 04:45 WBC (3.8-10.6) k/uL RBC (4.30-5.90) m/uL Hgb (13.0-17.5) gm/dL Hct (39.0-53.0) % MCV (80.0-100.0) fL MCH (25.0-35.0) pg MCHC (31.0-37.0) g/dL RDW (11.5-15.5) % Plt Count (150-450) k/uL MPV Neutrophils % % Lymphocytes % % Monocytes % % Eosinophils % % Basophils % % Neutrophils # (1.3-7.7) k/uL Lymphocytes # (1.0-4.8) k/uL Monocytes # (0-1.0) k/uL Eosinophils # (0-0.7) k/uL Basophils # (0-0.2) k/uL Macrocytosis PT (9.0-12.0) sec INR (<1.2) APTT (22.0-30.0) sec Sodium 136 L (137-145) mmol/L Potassium 3.7 (3.5-5.1) mmol/L Chloride 106 (98-107) mmol/L Carbon Dioxide 19 L (22-30) mmol/L Anion Gap 11 mmol/L BUN 7 L (9-20) mg/dL Creatinine 0.61 L (0.66-1.25) mg/dL Est GFR (CKD-EPI)AfAm >90 (>60 ml/min/1.73 sqM) Est GFR (CKD-EPI)NonAf >90 (>60 ml/min/1.73 sqM) Glucose 90 (74-99) mg/dL Plasma Lactic Acid Gerardo 2.0 (0.7-2.0) mmol/L Calcium 9.3 (8.4-10.2) mg/dL Total Bilirubin 0.4 (0.2-1.3) mg/dL AST 36 (17-59) U/L ALT 16 (4-49) U/L Alkaline Phosphatase 56 (38-126) U/L Troponin I 0.016 (0.000-0.034) ng/mL Total Protein 6.3 (6.3-8.2) g/dL Albumin 3.8 (3.5-5.0) g/dL Urine Color Urine Appearance (Clear) Urine pH (5.0-8.0) Ur Specific [place] (1.001-1.035) Urine Protein (Negative) Urine Glucose (UA) (Negative) Urine Ketones (Negative) Urine Blood (Negative) Urine Nitrite (Negative) Urine Bilirubin (Negative) Urine Urobilinogen (<2.0) mg/dL Ur Leukocyte Esterase (Negative) Urine Opiates Screen (NotDetected) Ur Oxycodone Screen (NotDetected) Urine Methadone Screen (NotDetected) Ur Propoxyphene Screen (NotDetected) Ur Barbiturates Screen (NotDetected) U Tricyclic Antidepress (NotDetected) Ur Phencyclidine Scrn (NotDetected) Ur Amphetamines Screen (NotDetected) U Methamphetamines Scrn (NotDetected) U Benzodiazepines Scrn (NotDetected) Urine Cocaine Screen (NotDetected) U Marijuana (THC) Screen (NotDetected) Serum Alcohol 145 mg/dL Blood Type Blood Type Recheck Bld Type Recheck Status Antibody Screen Spec Expiration Date 06/17/21 Range/Units 04:45 WBC (3.8-10.6) k/uL RBC (4.30-5.90) m/uL Hgb (13.0-17.5) gm/dL Hct (39.0-53.0) % MCV (80.0-100.0) fL MCH (25.0-35.0) pg MCHC (31.0-37.0) g/dL RDW (11.5-15.5) % Plt Count (150-450) k/uL MPV Neutrophils % % Lymphocytes % % Monocytes % % Eosinophils % % Basophils % % Neutrophils # (1.3-7.7) k/uL Lymphocytes # (1.0-4.8) k/uL Monocytes # (0-1.0) k/uL Eosinophils # (0-0.7) k/uL Basophils # (0-0.2) k/uL Macrocytosis PT (9.0-12.0) sec INR (<1.2) APTT (22.0-30.0) sec Sodium (137-145) mmol/L Potassium (3.5-5.1) mmol/L Chloride (98-107) mmol/L Carbon Dioxide (22-30) mmol/L Anion Gap mmol/L BUN (9-20) mg/dL Creatinine (0.66-1.25) mg/dL Est GFR (CKD-EPI)AfAm (>60 ml/min/1.73 sqM) Est GFR (CKD-EPI)NonAf (>60 ml/min/1.73 sqM) Glucose (74-99) mg/dL Plasma Lactic Acid Gerardo (0.7-2.0) mmol/L Calcium (8.4-10.2) mg/dL Total Bilirubin (0.2-1.3) mg/dL AST (17-59) U/L ALT (4-49) U/L Alkaline Phosphatase (38-126) U/L Troponin I (0.000-0.034) ng/mL Total Protein (6.3-8.2) g/dL Albumin (3.5-5.0) g/dL Urine Color Urine Appearance (Clear) Urine pH (5.0-8.0) Ur Specific [place] (1.001-1.035) Urine Protein (Negative) Urine Glucose (UA) (Negative) Urine Ketones (Negative) Urine Blood (Negative) Urine Nitrite (Negative) Urine Bilirubin (Negative) Urine Urobilinogen (<2.0) mg/dL Ur Leukocyte Esterase (Negative) Urine Opiates Screen (NotDetected) Ur Oxycodone Screen (NotDetected) Urine Methadone Screen (NotDetected) Ur Propoxyphene Screen (NotDetected) Ur Barbiturates Screen (NotDetected) U Tricyclic Antidepress (NotDetected) Ur Phencyclidine Scrn (NotDetected) Ur Amphetamines Screen (NotDetected) U Methamphetamines Scrn (NotDetected) U Benzodiazepines Scrn (NotDetected) Urine Cocaine Screen (NotDetected) U Marijuana (THC) Screen (NotDetected) Serum Alcohol mg/dL Blood Type A Positive Blood Type Recheck A Pos Bld Type Recheck Status No Antibody Screen NEGATIVE Spec Expiration Date 06/20/20212344 Disposition Clinical Impression: Fall, Rib fracture, Thumb fracture Disposition: HOME SELF-CARE Condition: Good Instructions (If sedation given, give patient instructions): Rib Fracture (ED), Fall Prevention for Older Adults (ED), Thumb Fracture (ED) Is patient prescribed a controlled substance at d/c from ED?: No Referrals: Mario June DO [Primary Care Provider] - 1-2 days
[2021-06-17] MEDS ORDERED: HYDROcodone/APAP 5-325MG 1 EACH TAB PO STA (04:56)
--- NOTE | 2021-06-17 05:30 | XR ---
EXAMINATION TYPE: XR chest 1V portable DATE OF EXAM: 06/17/2021 COMPARISON: 05/05/2019 HISTORY: Trauma. Pain TECHNIQUE: Single view FINDINGS: Heart size is normal. There is no heart failure. There is left axillary pacemaker. There is minimal pleural reaction and subsegmental atelectasis left lung base. There is no pneumothorax. IMPRESSION: Mild left side subsegmental atelectasis appears new compared to old exam.
--- NOTE | 2021-06-17 05:32 | XR ---
EXAMINATION TYPE: XR pelvis AP view DATE OF EXAM: 06/17/2021 COMPARISON: 11/08/2014 HISTORY: Pain. Fall. TECHNIQUE: FINDINGS: Pelvic ring appears intact. Proximal femurs are intact. Sacroiliac joints are intact. There is vascular calcification. Hip joint spaces are fairly normal. IMPRESSION: No acute abnormality of the pelvis. No adverse change.
[2021-06-17 05:56] LABS: Basophils # (A) 0.1 k/uL (0-0.2); Basophils % (A) 1 %; Eosinophils # (A) 0.1 k/uL (0-0.7); Eosinophils % (A) 2 %; HCT 50.4 % (39.0-53.0); HGB 16.5 gm/dL (13.0-17.5); Lymphocytes # (A) 1.5 k/uL (1.0-4.8); Lymphocytes % (A) 25 %; MCH 35.1 pg (25.0-35.0); MCHC 32.8 g/dL (31.0-37.0); MCV 107.2 fL (80.0-100.0); Macrocytosis Moderate; Monocytes # (A) 0.5 k/uL (0-1.0); Monocytes % (A) 9 %; Neutrophils # (A) 3.6 k/uL (1.3-7.7); Neutrophils % (A) 61 %; Platelet Count 246 k/uL (150-450); RDW 14.3 % (11.5-15.5)
[2021-06-17 05:59] LABS: Partial Thromboplastin Time 22.4 sec (22.0-30.0); Prothrombin Time 10.4 sec (9.0-12.0)
[2021-06-17 06:10] LABS: ALT 16 U/L (4-49); AST 36 U/L (17-59); African American GFR (CKD) >90 (>60 ml/min/1.73 sqM); Albumin 3.8 g/dL (3.5-5.0); Alkaline Phosphatase 56 U/L (38-126); Anion Gap 11 mmol/L; Blood Urea Nitrogen 7 mg/dL (9-20); Calcium 9.3 mg/dL (8.4-10.2); Carbon Dioxide 19 mmol/L (22-30); Chloride 106 mmol/L (98-107); Glucose 90 mg/dL (74-99); Non-African American GFR(CKD) >90 (>60 ml/min/1.73 sqM); Potassium 3.7 mmol/L (3.5-5.1); Sodium 136 mmol/L (137-145); Total Bilirubin 0.4 mg/dL (0.2-1.3); Total Protein 6.3 g/dL (6.3-8.2)
[2021-06-17 06:17] LABS: Alcohol 145 mg/dL
[2021-06-17 06:25] LABS: Appearance,Urine Clear (Clear); Bilirubin,Urine Negative (Negative); Blood,Urine Negative (Negative); Color,Urine Light Yellow; Glucose,Urine (UA) Negative (Negative); Ketones,Urine Negative (Negative); Leukocyte Esterase,Urine Negative (Negative); Nitrite,Urine Negative (Negative); PH, Urine 6.5 (5.0-8.0); Protein,Urine Negative (Negative); Specific Gravity,Urine 1.003 (1.001-1.035); Urobilinogen,Urine <2.0 mg/dL (<2.0)
[2021-06-17 06:34] LABS: Amphetamine Screen,Urine Not Detected (NotDetected); Barbiturate Screen,Urine Not Detected (NotDetected); Benzodiazepines Screen,Urine Not Detected (NotDetected); Cocaine Screen,Urine Not Detected (NotDetected); Methadone Screen, Urine Not Detected (NotDetected); Opiate Screen,Urine Not Detected (NotDetected); Oxycodone Screen, Urine Detected (NotDetected); Phencyclidine Screen,Urine Not Detected (NotDetected); Tricyclic Antidepressant,Urine Not Detected (NotDetected); Urn Cannabinoid Scrn Detected (NotDetected)
--- NOTE | 2021-06-17 06:48 | CT ---
EXAMINATION TYPE: CT brain wo con DATE OF EXAM: 06/17/2021 COMPARISON: 05/22/2020 HISTORY: AMS CT DLP: 1084.4 mGycm Automated exposure control for dose reduction was used. There is cerebral cortical atrophy. There is mild hypodensity in the periventricular white matter. Th ere is no mass effect nor midline shift. There is no sign of intracranial hemorrhage. The calvarium i s intact. Skull base is intact. IMPRESSION: Cerebral atrophy and chronic small vessel ischemia. No change compared to old exam. No acute intracra nial abnormality.
--- NOTE | 2021-06-17 07:03 | CT ---
EXAMINATION TYPE: CT ChestAbdPelvis w con DATE OF EXAM: 06/17/2021 COMPARISON: 10/15/2020 and 06/29/2020 HISTORY: pain Fall. CT DLP: 764.5 mGycm Automated exposure control for dose reduction was used. CONTRAST: Performed with IV Contrast, patient injected with 100 mL of Isovue 300. Images obtained from the thoracic inlet to the floor the pelvis with IV contrast. There is some mild atelectasis at the posterior lung bases. There is no pneumothorax. There is no ple ural effusion. Heart size is normal. There is no pericardial effusion. There is no mediastinal adenop athy. Thoracic aorta is atheromatous. There is no aneurysm or dissection. The ascending aorta measure s 3.4 cm. Liver spleen stomach pancreas gallbladder appear intact. Bile ducts are not dilated. There is no adrenal mass. Kidneys have normal size. There is no hydronephrosis. There are bilateral r enal cortical cysts that measure up to 3 cm. There is aneurysm of the mid and lower abdominal aorta. There is moderate thrombus in the aneurysm. Aneurysm measures up to 5.2 cm in diameter with 2.5 cm th rombus. Aneurysm extends from the renal arteries to the aortic bifurcation. Common iliac arteries gallito sure up to 12 mm. Bladder distends smoothly. There is no inguinal hernia. There is no free fluid in t he pelvis. I see no mesenteric edema. There is no ascites or free air. There is no evidence of a bowel obstructi on. There is no retroperitoneal adenopathy. Thoracic and lumbar spine appear intact. There is no compression fracture. The bony pelvis is intact. The hip joints are intact. There is no hip dysplasia. The shoulder joints appear intact. There is ol d right posterior lower healed rib fracture. There is an acute fracture of the left posterior 11th rib. IMPRESSION: There is some patchy atelectasis at the lung bases increased compared to old exam. There is an acute fracture left 11th rib. Fracture is in the same location as the rib fracture evident on the old CT sc an of 10/15/2020. Abdominal aortic aneurysm. Aneurysm increased in size compared to old exam. Old exam measures 4.7 cm and now measures 5.2 cm.
--- NOTE | 2021-06-17 07:39 | XR ---
EXAMINATION TYPE: XR hand complete LT DATE OF EXAM: 06/17/2021 COMPARISON: NONE HISTORY: 75-year-old male pain after fall, injury TECHNIQUE: 3 views FINDINGS: There seems to be some dressing along the radial aspect of the thumb. There is a transverse fracture along the proximal shaft of the first distal phalanx that is nondisplaced but with minimal 1 mm corti annie offset dorsally. No retained radiopaque foreign body. No subluxation or dislocation. IMPRESSION: Transverse fracture through the proximal aspect of the first distal phalangeal shaft without signific ant displacement.
[2021-06-17] MEDS ORDERED: TOPICAL SKIN ADHESIVE 1 EACH AMP TOPICAL ONE (07:57)
[2021-06-17] MEDS ORDERED: oxyCODONE-APAP 10-325MG 1 EACH TAB PO STA (08:08)
[2021-06-17 08:44] VITALS: BP 162/93; PULSE 77; RESP 18; TEMP 98.6
== END 2021-06-17 09:01 | disposition home or self-care (01) ==
LOC: EC 04:09
DX: S22.32XA Fracture of one rib, left side, initial encounter for closed fracture (principal); S62.525A Nondisplaced fracture of distal phalanx of left thumb, initial encounter for closed fracture; S61.412A Laceration without foreign body of left hand, initial encounter; I10 Essential (primary) hypertension; E78.5 Hyperlipidemia, unspecified; I25.2 Old myocardial infarction; M19.90 Unspecified osteoarthritis, unspecified site; F17.210 Nicotine dependence, cigarettes, uncomplicated; F32.9 Major depressive disorder, single episode, unspecified; F41.9 Anxiety disorder, unspecified; Z79.82 Long term (current) use of aspirin; Z79.890 Hormone replacement therapy; Z79.899 Other long term (current) drug therapy; Z88.5 Allergy status to narcotic agent; Z88.1 Allergy status to other antibiotic agents; Z95.0 Presence of cardiac pacemaker; W19.XXXA Unspecified fall, initial encounter
CPT/HCPCS: 36415; 93005; 86900; 86901; 80053; 83605; 84484; 85025; 85610; 85730; 86850; 81003; 80306; 72170; 73130; 71045; 70450; 71260; 74177; 12002; 99285; G0480; Q9967; 80320

== ENCOUNTER → 2021-06-26 | Outpatient (CLI) | payer MEDICARE, OTHER ==
[2021-06-26 14:08] VITALS: BP 135/78; PULSE 83; RESP 16; TEMP 98
--- NOTE | 2021-07-02 14:51 | P.PAINCN ---
History of Present Illness - Reason for Consult Consult date: 06/26/21 - History of Present Illness This is we last saw in 2018. He has a history of severe and chronic low back pain secondary to lumbar bulging disc disease, lumbar radiculopathy, lumbar spinal stenosis. In regards to his management we did L4-L5 epidurals x 3 in 2018 with significant benefit. He is also taking percocet 10 mg QID from his PCP. We have not seen him since 2018. He notes that the injections from 2018 were not helpful at all. His pain is mostly located in his low back and he also notes pain in his neck shoulders and lower extremities. Also notes numbness and tingling in his bilateral feet. When asked to ascribe area that hurts the most he claims that it is low back and his legs. He describes significant weakness with walking overall decrease in functionality. Notes his pain medications help and not as much as it used to. Has not had any imaging since 2017. Objective - Exam Physical Examinations : 1-Constitutiona : Cooperative , not in acute distress . 2-HEENT : nech ; supple , no Lymphadenopathy , normal thyroid size . eyes : no ptosis , no icterus, no photophobia . ENT : normal of hearing , normal oropharynx , no Thrush . 3- Respiratory : Chest clear to auscultations Bilaterally , no wheezing , no Rhonchi . 4- Cardiovascular : regular rate and rhythem , S1 , S2 , no S3 , no S4. 5- Gastrointestinal : abdomen soft no tenderness , bowel sounds , no organomegally . 6- Genitourinary : Defferred . 7- neurologic : Cranial nerve II to XII intact , no focal neurological deffecit . 8-psychatric : alert , oriented X 3 , appropriate affect , intact judgment and insight . 9-Lymphatic : no Lymphadenopathy . 10- musculoskeltal : Lumber spine = lumber facet Loading Test positive strait leg raising test positive at 30 degree Right , positve at 30 degree Left Fabere test positive Right and positive Left tenderness over the Sacroiliac joint on the Right , and Left side Motor strength in the lower extremity 4/5 bilaterally MRI of the lumbar spine done in 2017 for L4 5 lumbar bulging disc disease and neuroforaminal stenosis Assessment and Plan Plan: Assessment and plan= lumbar radiculopathic, lumbar spinal stenosis, lumbar bulging disc disease multilevel L2 3 L3 4 and L4 5 WE will repeat imaging of the low back to determine what could be going on. It is likely that he is experiencing significant facet arthropathy as well as nerve root impingement. We can proceed with either epidural injection or medial branch blocks depending on the results of the MRI. I have spent 50 minutes with chart reviewing the patient, speaking to the patient, and discussing plan of care with the patient PQRS Measure Charge Sheet Measure #130: Documentation of Current Meds in Medical Chart: Patient's medications documented in chart Measure #226: Tobacco Use: Screen & Cessation Intervention: Pt screened for tobacco use AND intervention given Measure #111: Pneumonia Vaccination: Pneumococcal vaccine administered or previously received Measure #47: Advance Care Plan: Advance care planning discussed & documented, pt chose/unable to give Measure #412: Opioid Treatment Agreement: No documentation of signed opioid treatment agreement Measure #408: Opioid Therapy Follow-up Evaluation: Patient had NO f/u eval minimum every 3 months during opioid therapy Measure #317: Preventitive Care & Scrn High Bld Press & F/U: Pre-hypertensive or hypertensive BP documented, pt will f/u with PCP Measure #128: Body Mass Index (BMI) Screening & Follow-up: BMI documented within normal parameters Measure #131: Pain Assessment & Follow-up: Pain positive & plan documented, Follow-up scheduled Measure #431: Unhealthy Alcohol Use Preventative Care & Scrn: Patient not identi fied as an unhealthy alcohol user PQRS Narrative: Past Medical History Past Medical History: Cancer, Chest Pain / Angina, Hyperlipidemia, Hypertension, Myocardial Infarction ([place]), Osteoarthritis (OA), Syncope, Thyroid Disorder Additional Past Medical History / Comment(s): [place] X2 ("in my 30's), SKIN CA, pain lower spine and legs, rectal bleeding , irregular heart beat, low sodium, see Dr. Fink's H&P. Last Myocardial Infarction Date:: approx 40 yrs ago History of Any Multi-Drug Resistant Organisms: None Reported Past Surgical History: Back Surgery, Heart Catheterization, Hernia Repair, Orthopedic Surgery, Pacemaker, Tonsillectomy Additional Past Surgical History / Comment(s): LAMINECTOMY & PLACEMENT OF NEUROSTIMULATOR, repositioned them later removed, ana catarats, Past Anesthesia/Blood Transfusion Reactions: Motion Sickness Type of Cardiac Device: Permanent Pacemaker Device Placement Date:: October 2017 Past Psychological History: Anxiety, Depression Smoking Status: Smoker, current status unknown Past Alcohol Use History: None Reported Additional Past Alcohol Use History / Comment(s): started smoking at age 13 smokes 1ppd. pt states that he usually drinks alcohol on the weekend 6-7 beers, states now smoking about 1/2 ppd. Past Drug Use History: None Reported Additional Drug Use History / Comment(s): denies - Past Family History Brother(s) Family Medical History: Cancer Father Family Medical History: Cancer Mother Family Medical History: Cancer Additional Family Medical History / Comment(s): cva with residual left leg weakness April 2020 Medications and Allergies Home Medications Medication Instructions Recorded Confirmed Type oxyCODONE HCL/ACETAMINOPHEN 1 tab PO Q6H PRN 07/16/17 06/17/21 History [Percocet 10-325 mg] Dicyclomine [Bentyl] 10 mg PO TID 01/31/20 06/17/21 History Aspirin EC [Ecotrin Low Dose] 81 mg PO DAILY 06/17/21 06/17/21 History Budesonide [Budesonide EC] 6 mg PO DAILY 06/17/21 06/17/21 History Levothyroxine Sodium [Synthroid] 25 mcg PO MOLINA 06/17/21 06/17/21 History Levothyroxine Sodium [Synthroid] 50 mcg PO MOTUWETHFRSA 06/17/21 06/17/21 History Loperamide [Imodium] 4 mg PO Q6H PRN 06/17/21 06/17/21 History Metoprolol Succinate (ER) [Toprol 50 mg PO DAILY 06/17/21 06/17/21 History Xl] Naloxone HCl [Narcan] 4 mg NASAL ONCE PRN 06/17/21 06/17/21 History Nitroglycerin Sl Tabs [Nitrostat] 0.4 mg SUBLINGUAL Q5M PRN 06/17/21 06/17/21 History amLODIPine [Norvasc] 5 mg PO DAILY 06/17/21 06/17/21 History Allergies Allergy/AdvReac Type Severity Reaction Status Date / Time cefazolin Allergy Rash/Hives Verified 06/24/21 17:31 cefazolin sodium [From Ancef] Allergy Rash/Hives Verified 06/24/21 17:31 morphine AdvReac Nausea & Verified 06/24/21 17:31 Vomiting PQRS Measure Charge Sheet PQRS Narrative: Smoking Status Current every day smoker Hx Alcohol Use (MH) Yes: 3 beer monthly Home Medications: Ambulatory Orders oxyCODONE HCL/ACETAMINOPHEN [Percocet 10-325 mg] 1 tab PO Q6H PRN 07/16/17 Dicyclomine [Bentyl] 10 mg PO TID 01/31/20 Aspirin EC [Ecotrin Low Dose] 81 mg PO DAILY 06/17/21 Budesonide [Budesonide EC] 6 mg PO DAILY 06/17/21 Levothyroxine Sodium [Synthroid] 25 mcg PO MOLINA 06/17/21 Levothyroxine Sodium [Synthroid] 50 mcg PO MOTUWETHFRSA 06/17/21 Loperamide [Imodium] 4 mg PO Q6H PRN 06/17/21 Metoprolol Succinate (ER) [Toprol Xl] 50 mg PO DAILY 06/17/21 Naloxone HCl [Narcan] 4 mg NASAL ONCE PRN 06/17/21 Nitroglycerin Sl Tabs [Nitrostat] 0.4 mg SUBLINGUAL Q5M PRN 06/17/21 amLODIPine [Norvasc] 5 mg PO DAILY 06/17/21
== END ==
LOC: PNWHC3 13:38
PROVIDERS: ATTEND Anesthesiology
DX: M48.061 Spinal stenosis, lumbar region without neurogenic claudication (principal); M54.16 Radiculopathy, lumbar region; M51.16 Intervertebral disc disorders with radiculopathy, lumbar region; E78.5 Hyperlipidemia, unspecified; I10 Essential (primary) hypertension; M19.90 Unspecified osteoarthritis, unspecified site; I25.2 Old myocardial infarction; F41.9 Anxiety disorder, unspecified; F32.9 Major depressive disorder, single episode, unspecified; F17.200 Nicotine dependence, unspecified, uncomplicated; Z88.1 Allergy status to other antibiotic agents; Z88.5 Allergy status to narcotic agent; Z79.899 Other long term (current) drug therapy
CPT/HCPCS: 99211

== ENCOUNTER 2021-07-08 06:25 | Day surgery (SDC) | payer MEDICARE, OTHER ==
--- NOTE | 2021-06-26 13:56 | P.PAINCN ---
History of Present Illness - Reason for Consult Consult date: 06/26/21 - History of Present Illness This is we last saw in 2018. He has a history of severe and chronic low back pain secondary to lumbar bulging disc disease, lumbar radiculopathy, lumbar spinal stenosis. In regards to his management we did L4-L5 epidurals x 3 in 2018 with significant benefit. He is also taking percocet 10 mg QID from his PCP. We have not seen him since 2018. He notes that the injections from 2018 were not helpful at all. His pain is mostly located in his low back and he also notes pain in his neck shoulders and lower extremities. Also notes numbness and tingling in his bilateral feet. When asked to ascribe area that hurts the most he claims that it is low back and his legs. He describes significant weakness with walking overall decrease in functionality. Notes his pain medications help and not as much as it used to. Has not had any imaging since 2017. Objective - Exam Physical Examinations : 1-Constitutiona : Cooperative , not in acute distress . 2-HEENT : nech ; supple , no Lymphadenopathy , normal thyroid size . eyes : no ptosis , no icterus, no photophobia . ENT : normal of hearing , normal oropharynx , no Thrush . 3- Respiratory : Chest clear to auscultations Bilaterally , no wheezing , no Rhonchi . 4- Cardiovascular : regular rate and rhythem , S1 , S2 , no S3 , no S4. 5- Gastrointestinal : abdomen soft no tenderness , bowel sounds , no organomegally . 6- Genitourinary : Defferred . 7- neurologic : Cranial nerve II to XII intact , no focal neurological deffecit . 8-psychatric : alert , oriented X 3 , appropriate affect , intact judgment and insight . 9-Lymphatic : no Lymphadenopathy . 10- musculoskeltal : Lumber spine = lumber facet Loading Test positive strait leg raising test positive at 30 degree Right , positve at 30 degree Left Fabere test positive Right and positive Left tenderness over the Sacroiliac joint on the Right , and Left side Motor strength in the lower extremity 4/5 bilaterally MRI of the lumbar spine done in 2017 for L4 5 lumbar bulging disc disease and neuroforaminal stenosis Assessment and Plan Plan: Assessment and plan= lumbar radiculopathic, lumbar spinal stenosis, lumbar bulging disc disease multilevel L2 3 L3 4 and L4 5 WE will repeat imaging of the low back to determine what could be going on. It is likely that he is experiencing significant facet arthropathy as well as nerve root impingement. We can proceed with either epidural injection or medial branch blocks depending on the results of the MRI. I have spent 50 minutes with chart reviewing the patient, speaking to the patient, and discussing plan of care with the patient PQRS Measure Charge Sheet Measure #130: Documentation of Current Meds in Medical Chart: Patient's medications documented in chart Measure #226: Tobacco Use: Screen & Cessation Intervention: Pt screened for tobacco use AND intervention given Measure #111: Pneumonia Vaccination: Pneumococcal vaccine administered or previously received Measure #47: Advance Care Plan: Advance care planning discussed & documented, pt chose/unable to give Measure #412: Opioid Treatment Agreement: No documentation of signed opioid treatment agreement Measure #408: Opioid Therapy Follow-up Evaluation: Patient had NO f/u eval minimum every 3 months during opioid therapy Measure #317: Preventitive Care & Scrn High Bld Press & F/U: Pre-hypertensive or hypertensive BP documented, pt will f/u with PCP Measure #128: Body Mass Index (BMI) Screening & Follow-up: BMI documented within normal parameters Measure #131: Pain Assessment & Follow-up: Pain positive & plan documented, Follow-up scheduled Measure #431: Unhealthy Alcohol Use Preventative Care & Scrn: Patient not identi fied as an unhealthy alcohol user PQRS Narrative: Past Medical History Past Medical History: Cancer, Chest Pain / Angina, Hyperlipidemia, Hypertension, Myocardial Infarction ([place]), Osteoarthritis (OA), Syncope, Thyroid Disorder Additional Past Medical History / Comment(s): [place] X2 ("in my 30's), SKIN CA, pain lower spine and legs, rectal bleeding , irregular heart beat, low sodium, see Dr. Fink's H&P. Last Myocardial Infarction Date:: approx 40 yrs ago History of Any Multi-Drug Resistant Organisms: None Reported Past Surgical History: Back Surgery, Heart Catheterization, Hernia Repair, Orthopedic Surgery, Pacemaker, Tonsillectomy Additional Past Surgical History / Comment(s): LAMINECTOMY & PLACEMENT OF NEUROSTIMULATOR, repositioned them later removed, ana catarats, Past Anesthesia/Blood Transfusion Reactions: Motion Sickness Type of Cardiac Device: Permanent Pacemaker Device Placement Date:: October 2017 Past Psychological History: Anxiety, Depression Smoking Status: Smoker, current status unknown Past Alcohol Use History: None Reported Additional Past Alcohol Use History / Comment(s): started smoking at age 13 smokes 1ppd. pt states that he usually drinks alcohol on the weekend 6-7 beers, states now smoking about 1/2 ppd. Past Drug Use History: None Reported Additional Drug Use History / Comment(s): denies - Past Family History Mother Family Medical History: Cancer Additional Family Medical History / Comment(s): cva with residual left leg weakness April 2020 Father Family Medical History: Cancer Brother(s) Family Medical History: Cancer Medications and Allergies Home Medications Medication Instructions Recorded Confirmed Type oxyCODONE HCL/ACETAMINOPHEN 1 tab PO Q6H PRN 07/16/17 06/17/21 History [Percocet 10-325 mg] Dicyclomine [Bentyl] 10 mg PO TID 01/31/20 06/17/21 History Aspirin EC [Ecotrin Low Dose] 81 mg PO DAILY 06/17/21 06/17/21 History Budesonide [Budesonide EC] 6 mg PO DAILY 06/17/21 06/17/21 History Levothyroxine Sodium [Synthroid] 25 mcg PO MOLINA 06/17/21 06/17/21 History Levothyroxine Sodium [Synthroid] 50 mcg PO MOTUWETHFRSA 06/17/21 06/17/21 History Loperamide [Imodium] 4 mg PO Q6H PRN 06/17/21 06/17/21 History Metoprolol Succinate (ER) [Toprol 50 mg PO DAILY 06/17/21 06/17/21 History Xl] Naloxone HCl [Narcan] 4 mg NASAL ONCE PRN 06/17/21 06/17/21 History Nitroglycerin Sl Tabs [Nitrostat] 0.4 mg SUBLINGUAL Q5M PRN 06/17/21 06/17/21 History amLODIPine [Norvasc] 5 mg PO DAILY 06/17/21 06/17/21 History Allergies Allergy/AdvReac Type Severity Reaction Status Date / Time cefazolin Allergy Rash/Hives Verified 06/24/21 17:31 cefazolin sodium [From Ancef] Allergy Rash/Hives Verified 06/24/21 17:31 morphine AdvReac Nausea & Verified 06/24/21 17:31 Vomiting PQRS Measure Charge Sheet PQRS Narrative: Smoking Status Current every day smoker Hx Alcohol Use (MH) Yes: 3 beer monthly Home Medications: Ambulatory Orders oxyCODONE HCL/ACETAMINOPHEN [Percocet 10-325 mg] 1 tab PO Q6H PRN 07/16/17 Dicyclomine [Bentyl] 10 mg PO TID 01/31/20 Aspirin EC [Ecotrin Low Dose] 81 mg PO DAILY 06/17/21 Budesonide [Budesonide EC] 6 mg PO DAILY 06/17/21 Levothyroxine Sodium [Synthroid] 25 mcg PO MOLINA 06/17/21 Levothyroxine Sodium [Synthroid] 50 mcg PO MOTUWETHFRSA 06/17/21 Loperamide [Imodium] 4 mg PO Q6H PRN 06/17/21 Metoprolol Succinate (ER) [Toprol Xl] 50 mg PO DAILY 06/17/21 Naloxone HCl [Narcan] 4 mg NASAL ONCE PRN 06/17/21 Nitroglycerin Sl Tabs [Nitrostat] 0.4 mg SUBLINGUAL Q5M PRN 06/17/21 amLODIPine [Norvasc] 5 mg PO DAILY 06/17/21
[2021-07-04 15:48] VITALS: BMI 19.2
[2021-07-08] MEDS ORDERED: SODIUM CHLORIDE 0.9% 1,000 ML in EMPTY BAG 1 BAG IV ONE (06:49)
[2021-07-08] MEDS ORDERED: ATORVASTATIN 80 MG TAB PO STA (06:49)
[2021-07-08] MEDS ORDERED: ALPRAZolam 0.5 MG TAB PO PRN (06:49)
[2021-07-08] MEDS ORDERED: ASPIRIN 325 MG TAB PO STA (06:49)
[2021-07-08] MEDS ORDERED: NITROGLYCERIN SL TABS 0.4 MG TAB SUBLINGUAL PRN (06:49)
[2021-07-08] MEDS ORDERED: ALPRAZolam 0.25 MG TAB PO PRN (06:49)
[2021-07-08] MEDS ORDERED: ASPIRIN 325 MG TAB ONE (07:03)
[2021-07-08 07:11] VITALS: RESP 18; TEMP 98.3
[2021-07-08] MEDS ORDERED: VERAPAMIL 2.5 MG/ML 2 ML AMP ONE (07:23)
[2021-07-08] MEDS ORDERED: HEPARIN SODIUM 1,000 UN/ML (10ML VL) ONE (07:23)
[2021-07-08] MEDS ORDERED: LIDOCAINE 1% INJ 10MG/ML (20 ML MDV) ONE (07:23)
[2021-07-08] MEDS ORDERED: MIDAZOLAM 2 MG/2 ML VIAL IV ONE (07:45)
[2021-07-08] MEDS ORDERED: LIDOCAINE 1% INJ 10MG/ML (20 ML MDV) SQ ONE (07:47)
[2021-07-08] MEDS: VERAPAMIL SYRINGE (5 MG/10 ML) INTRAARTER ONE ×2 (07:52→07:58)
[2021-07-08] MEDS ORDERED: HEPARIN SODIUM 1,000 UN/ML (10ML VL) IV ONE (07:53)
[2021-07-08] MEDS ORDERED: IOPAMIDOL-370 125ML BTL INJ ONE (08:00)
[2021-07-08] MEDS ORDERED: RX INFO: IV CONTRAST WAS GIVEN 1 EACH MISC MISCELLANE PRN (08:03)
[2021-07-08] MEDS ORDERED: SODIUM CHLORIDE 0.9% 1,000 ML IV SCH (08:15)
--- NOTE | 2021-07-08 10:05 | LTR ---
July 08, 2021 To: Dr. Mario June Re: Lemuel WongChitra (49) Dear Dr. June: Lemuel Marcelino underwent today a heart catheterization that revealed mild nonobstructive coronary artery disease. Maximized medical treatment, including risk factor modifications, was advised. I want to thank you for allowing me to participate in his care. Please do not hesitate to call if you have any questions. Sincerely, Josr Sullivan M.D. [facility]SON / GOOD: [phone] /
--- NOTE | 2021-07-08 10:05 | CC ---
CARDIAC CATHETERIZATION REPORT DATE OF SERVICE: 07/08/2021 PERFORMING PHYSICIAN: Josr Sullivan M.D. PROCEDURE PERFORMED: Selective right and left coronary angiogram. INDICATION: Chest discomfort in this gentleman with multiple risk factors for CAD who underwent myocardial perfusion imaging and stress test that came in to be abnormal. APPROACH: Right radial artery. COMPLICATIONS: None. LEVEL OF SEDATION: Moderate, with sedation length of 16 minutes. PROCEDURE DESCRIPTION: After obtaining informed consent, the patient was brought to the cardiac animal laboratory helper. The right radial artery was cannulated using micropuncture technique, and the micropuncture wire passed easily. Then I placed a 6-Kiswahili sheath at the right radial artery. After that I did selective right and left coronary angiogram with JR4 and JL3.5 catheters. Left heart catheterization was not performed. After that the procedure was completed. Please note that the patient was given a total of 5000 units of heparin IV. SELECTIVE CORONARY ANGIOGRAM: RIGHT CORONARY ARTERY: The RCA is a large-caliber vessel and it is a dominant vessel. The RCA has mild diffuse disease and seems to be calcified as well. It bifurcates distally into PDA and PLV branches, and both appeared to be angiographically normal. LEFT MAIN: Left main appeared to be calcified with mild disease only. LEFT CIRCUMFLEX: The left circumflex is a large-caliber vessel. It is a nondominant vessel. The LCX has mild disease only and gives rise to the first and second obtuse marginal branches, and both appeared to be angiographically normal. RAMUS INTERMEDIUS: The ramus intermedius is a medium- to large-caliber vessel and seems to be angiographically normal. LAD: The LAD is a large-caliber vessel. The LAD appeared to have mild disease only and seemed to be calcified. It gives rise to first, second and third obtuse marginal vessels. The diagonal branches all appeared to be angiographically normal. CONCLUSION: 1. Calcified right and left coronary systems. 2. Mild nonobstructive coronary artery disease. POST-PROCEDURE MANAGEMENT: Medical treatment and followup with the patient. MMODL / IJN: [id number] /
[2021-07-08] MEDS ORDERED: ACETAMINOPHEN TAB 500 MG TAB PO PRN (10:49)
[2021-07-08] MEDS ORDERED: oxyCODONE-APAP 10-325MG 1 EACH TAB PO PRN (10:52)
[2021-07-08 11:17] VITALS: BP 147/81; PULSE 54
== END 2021-07-08 12:10 | disposition home or self-care (01) ==
LOC: CATHCVL 06:25
PROVIDERS: ATTEND Internal Medicine Interventional Cardiology
DX: I25.10 Atherosclerotic heart disease of native coronary artery without angina pectoris (principal); I25.84 Coronary atherosclerosis due to calcified coronary lesion; I48.0 Paroxysmal atrial fibrillation; I49.5 Sick sinus syndrome; I10 Essential (primary) hypertension; E78.5 Hyperlipidemia, unspecified; I73.9 Peripheral vascular disease, unspecified; F17.210 Nicotine dependence, cigarettes, uncomplicated; I71.4 Abdominal aortic aneurysm, without rupture; I65.23 Occlusion and stenosis of bilateral carotid arteries; Z88.1 Allergy status to other antibiotic agents; Z88.5 Allergy status to narcotic agent; Z79.899 Other long term (current) drug therapy
CPT/HCPCS: 93458; C1894; J2250; J2001; J1644; Q9967

== ENCOUNTER → 2021-08-05 | Outpatient (CLI) | payer MEDICARE, OTHER ==
[2021-08-05 17:05] LABS: Chol/HDL Ratio 2.58; LDL Cholesterol,Calculated 100.8 mg/dL (0.0-131.0); VLDL Calculation 14.2 mg/dL (5.00-40.00)
== END | disposition home or self-care (01) ==
LOC: LABWHC1 10:12
PROVIDERS: ATTEND Nurse Practitioner Adult Health
DX: E78.5 Hyperlipidemia, unspecified (principal)
CPT/HCPCS: 36415; 80061

== ENCOUNTER 2021-12-24 23:11 | Emergency (ER) | payer MEDICARE, OTHER ==
[2021-12-24 23:19] VITALS: BP 131/82; PULSE 74; RESP 18
--- NOTE | 2021-12-25 00:09 | ED ---
General Adult HPI - General Chief complaint: Fall Stated complaint: Fall, ETOH Time Seen by Provider: 12/24/21 23:42 Source: patient, EMS Mode of arrival: EMS - History of Present Illness Initial comments: 76-year-old male with a past medical history of hyperlipidemia, hypertension, syncope, chronic alcoholic presents to the emergency room for a chief complaint of fall. Patient states that he was drinking at a bar and was walking home. Patient states that he had just made it to his apartment and he had lost his balance falling backwards. Patient unsure if he hit his head. He states he does take blood thinners. Patient was having difficulty getting up so called EMS who brought him to the emergency room. Patient has no complaints at this time. Patient has no other complaints at this time including shortness of breath, chest pain, abdominal pain, nausea or vomiting, headache, or visual changes. - Related Data Home Medications Medication Instructions Recorded Confirmed oxyCODONE HCL/ACETAMINOPHEN 1 tab PO Q6H PRN 07/16/17 07/08/21 [Percocet 10-325 mg] Dicyclomine [Bentyl] 10 mg PO TID 01/31/20 07/08/21 Aspirin EC [Ecotrin Low Dose] 81 mg PO DAILY 06/17/21 07/08/21 Budesonide [Budesonide EC] 6 mg PO DAILY 06/17/21 07/04/21 Levothyroxine Sodium [Synthroid] 50 mcg PO MOTUWETHFRSA 06/17/21 07/08/21 Loperamide [Imodium] 4 mg PO Q6H PRN 06/17/21 07/08/21 Metoprolol Succinate (ER) [Toprol 50 mg PO DAILY 06/17/21 07/08/21 XL] Naloxone HCl [Narcan] 4 mg NASAL ONCE PRN 06/17/21 07/08/21 Nitroglycerin Sl Tabs [Nitrostat] 0.4 mg SUBLINGUAL Q5M PRN 06/17/21 07/08/21 Alendronate Sodium [Binosto] 70 mg PO WEEKLY 07/08/21 07/08/21 Atorvastatin [Lipitor] 80 mg PO HS 07/08/21 07/08/21 Benzonatate [Benzonatate Perle] 200 mg PO TID 07/08/21 07/08/21 Ezetimibe [Zetia] 10 mg PO DAILY 07/08/21 07/08/21 SUMAtriptan SUCCINATE [Imitrex] 50 mg PO DAILY PRN 07/08/21 07/08/21 Sertraline [Zoloft] 50 mg PO DAILY 07/08/21 07/08/21 Topiramate 50 mg PO BID 07/08/21 07/08/21 Allergies Allergy/AdvReac Type Severity Reaction Status Date / Time cefazolin Allergy Rash/Hives Verified 07/04/21 15:40 cefazolin sodium [From Ancef] Allergy Rash/Hives Verified 07/04/21 15:40 morphine AdvReac Nausea & Verified 07/04/21 15:40 Vomiting Review of Systems ROS Statement: Those systems with pertinent positive or pertinent negative responses have been documented in the HPI. ROS Other: All systems not noted in ROS Statement are negative. Past Medical History Past Medical History: Cancer, Chest Pain / Angina, Hyperlipidemia, Hypertension, Myocardial Infarction ([place]), Osteoarthritis (OA), Syncope, Thyroid Disorder Additional Past Medical History / Comment(s): [place] X2 ("in my 30's), SKIN CA, pain lower spine and legs, rectal bleeding , irregular heart beat, low sodium, see Dr. Fink's H&P. Last Myocardial Infarction Date:: approx 40 yrs ago History of Any Multi-Drug Resistant Organisms: None Reported Past Surgical History: Back Surgery, Heart Catheterization, Hernia Repair, Orthopedic Surgery, Pacemaker, Tonsillectomy Additional Past Surgical History / Comment(s): LAMINECTOMY & PLACEMENT OF NEUROSTIMULATOR, repositioned them later removed, ana catarats, Past Anesthesia/Blood Transfusion Reactions: Motion Sickness Type of Cardiac Device: Permanent Pacemaker Device Placement Date:: October 2017 Past Psychological History: Anxiety, Depression Smoking Status: Current every day smoker Past Alcohol Use History: Daily Past Drug Use History: Marijuana - Past Family History Mother Family Medical History: Cancer Additional Family Medical History / Comment(s): cva with residual left leg weakness April 2020 Father Family Medical History: Cancer Brother(s) Family Medical History: Cancer General Exam General appearance: alert, in no apparent distress Head exam: Present: atraumatic Eye exam: Present: normal appearance, PERRL, EOMI. Absent: scleral icterus, conjunctival injection ENT exam: Present: normal exam, mucous membranes moist Neck exam: Present: other (C-collar in place). Absent: tenderness Respiratory exam: Present: normal lung sounds bilaterally. Absent: respiratory distress, wheezes Cardiovascular Exam: Present: regular rate, normal rhythm, normal heart sounds GI/Abdominal exam: Present: soft, normal bowel sounds. Absent: distended, tenderness, guarding, rebound, rigid Course Vital Signs 12/24/21 23:13 Pulse Rate 74 Respiratory 18 Rate Blood Pressure 131/82 O2 Sat by Pulse 94 L Oximetry Medical Decision Making - Medical Decision Making Vitals are stable. Patient is well-appearing although somewhat intoxicated. Patient's alcohol is 0.16. CT brain and C-spine shows no acute abnormality. Patient refusing to keep c-collar on until sober. At this point we will discharge patient to follow up with primary care. He is ambulatory without diffi culty. He will be given a ride home. Disposition Clinical Impression: Alcohol abuse, Fall Disposition: HOME SELF-CARE Condition: Good Instructions (If sedation given, give patient instructions): Fall Prevention for Older Adults (ED) Additional Instructions: Follow-up with your doctor. Return to the emergency room for any worsening symptoms. Is patient prescribed a controlled substance at d/c from ED?: No Referrals: Mario June DO [Primary Care Provider] - 1-2 days Time of Disposition: 01:45
--- NOTE | 2021-12-25 01:16 | CT ---
EXAMINATION TYPE: CT brain cspine wo con DATE OF EXAM: 12/25/2021 COMPARISON: CT brain 06/17/2021 Cervical spine 08/31/2014 HISTORY: fall CT DLP: 1304.5 mGycm Automated exposure control for dose reduction was used. Images of the brain and cervical spine without contrast. Ventricles have normal size. There is no mass effect or midline shift. There is no sign of intracrani al hemorrhage. There is some patchy hypodensity in the periventricular white matter. Calvarium is int act. There is normal aeration of the mastoid sinuses. The cervical vertebra have normal alignment. There is plate with screws fusing anteriorly the cervica l spine at C4-5. Facet joints are intact. IMPRESSION: Mild cerebral atrophy. Chronic small vessel ischemia. No acute intracranial abnormality. No change. Cervical spine fusion surgery. No fracture. No acute abnormality.
== END 2021-12-25 02:25 | disposition home or self-care (01) ==
LOC: EC 23:11 → SUPCPDRO 23:11 → EC 12-25 02:25
DX: F10.129 Alcohol abuse with intoxication, unspecified (principal); E78.5 Hyperlipidemia, unspecified; I10 Essential (primary) hypertension; I25.2 Old myocardial infarction; M19.90 Unspecified osteoarthritis, unspecified site; E07.9 Disorder of thyroid, unspecified; F41.9 Anxiety disorder, unspecified; F32.A Depression, unspecified; F17.200 Nicotine dependence, unspecified, uncomplicated; F12.90 Cannabis use, unspecified, uncomplicated; Z79.82 Long term (current) use of aspirin; Z88.5 Allergy status to narcotic agent; Z85.828 Personal history of other malignant neoplasm of skin; Z95.0 Presence of cardiac pacemaker; Y90.0 Blood alcohol level of less than 20 mg/100 ml
CPT/HCPCS: 70450; 72125; 99284

== ENCOUNTER → 2022-04-08 | Outpatient (CLI) | payer MEDICARE, OTHER ==
[2022-04-08 18:13] LABS: African American GFR (CKD) >90 (>60 ml/min/1.73 sqM); Blood Urea Nitrogen 17 mg/dL (9-20); Non-African American GFR(CKD) 79 (>60 ml/min/1.73 sqM)
--- NOTE | 2022-04-09 08:49 | CT ---
EXAMINATION TYPE: CT angio abdomen pelvis DATE OF EXAM: 04/08/2022 COMPARISON: Most recent CT June 17, 2021 HISTORY: h/o AAA CT DLP: 959 mGycm, Automated Exposure Control for Dose Reduction was Utilized. CONTRAST: CTA scan of the abdomen and pelvis is performed without oral and with IV Contrast, patient injected w ith 100 mL of Isovue 300. Three-D reconstructed images are created on a workstation and reviewed. FINDINGS: VASCULAR: Patent celiac artery and SMA identified with calcified plaque at the origin but no signific ant stenosis. Patent bilateral renal arteries with calcified plaque at the origin but no definitive s ignificant stenosis and no significant change or progression from most recent CT. More prominent narr owing origin right renal artery is noted with stenosis under 50% thought present. Below the renal art eries there is persistent AAA over a long segment without extension into common iliac arteries approx imately 11.0 cm in length sagittal image 22. Size of the aneurysm is up to 4.6 x 5.5 cm current study image 40 with continued increase in size from last 2 CTs. Persistent significant intramural noncalci fied plaque remains present. Severe calcified plaque extends into the iliac branch vessels similar to prior. LUNG BASES: Right-sided pacemaker wires partially imaged. Mild bibasilar linear scarring and/or atele ctasis redemonstrated. LIVER/GB: No significant abnormality. PANCREAS: No significant abnormality is seen. SPLEEN: No significant abnormality is seen. ADRENALS: Slightly low dense thickening to left adrenal gland consistent with benign lipid rich hyper plasia redemonstrated. KIDNEYS: A few small simple appearing thin-walled cysts bilaterally are redemonstrated. BOWEL: Stomach poorly distended and thus suboptimally evaluated. No suspicious small or large bowel dilatation. PROSTATE/SEMINAL VESICLES: Mildly enlarged prostate gland consistent with BPH redemonstrated. Adjacen t scattered bilateral pelvic phleboliths redemonstrated. LYMPH NODES: No new greater than 1cm abdominal or pelvic lymph nodes are appreciated. OSSEOUS STRUCTURES: Mild narrowing of both hip joints redemonstrated. OTHER: No significant abnormality. IMPRESSION: Continued enlargement of AAA up to 5.5 cm transversely with worsening intramural thrombus. Consider s urgical treatment.
== END | disposition home or self-care (01) ==
LOC: RADCTMAIN 17:29
PROVIDERS: ATTEND Surgery
DX: I71.4 Abdominal aortic aneurysm, without rupture (principal)
CPT/HCPCS: 82565; 84520; 74174; Q9967

== ENCOUNTER → 2022-05-07 | Outpatient (CLI) | payer MEDICARE, OTHER ==
[2022-05-07 18:06] LABS: Basophils # (A) 0.12 X 10*3/uL (0.00-0.10); Basophils % (A) 1.7 %; Eosinophils # (A) 0.36 X 10*3/uL (0.04-0.35); Eosinophils % (A) 5.1 %; HCT 40.6 % (39.6-50.0); HGB 13.9 g/dL (13.0-17.0); Immature Grans, Automated 0.4 %; Lymphocytes # (A) 1.95 X 10*3/uL (0.90-5.00); Lymphocytes % (A) 27.5 %; MCH 34.2 pg (27.0-32.0); MCHC 34.2 g/dL (32.0-37.0); Mean Platelet Volume 9.4 fL (9.5-12.2); Monocytes % (A) 11.3 %; NRBC Per 100 WBC 0 /100 WBCS (0.0-0.0); Neutrophils # (A) 3.84 X 10*3/uL (1.80-7.70); Platelet Count 276 X 10*3/uL (140-440); RBC 4.06 X 10*6/uL (4.40-5.60); RDW 11.9 % (11.5-14.5)
[2022-05-07 18:08] LABS: African American GFR (CKD) 97.2 (60.0-200.0); Blood Urea Nitrogen 20.3 mg/dL (9.0-27.0); Non-African American GFR(CKD) 83.8 (60.0-200.0)
== END | disposition home or self-care (01) ==
LOC: LABPAT 10:35
PROVIDERS: ATTEND Surgery
DX: Z01.812 Encounter for preprocedural laboratory examination (principal); I71.4 Abdominal aortic aneurysm, without rupture
CPT/HCPCS: 82565; 84520; 85025

== ENCOUNTER 2022-05-12 05:59 | Inpatient (IN) | payer MEDICARE, OTHER ==
[~2022-05-12 05:59] MED LIST changes: -DENOSUMAB 60 MG/ML 1 ML SYRINGE SQ NR; +SODIUM CHLORIDE 0.9% 1,000 ML in EMPTY BAG 1 BAG IV ONE
[2022-05-12 06:48] LABS: African American GFR (CKD) >90 (>60 ml/min/1.73 sqM); Anion Gap 10 mmol/L; Blood Urea Nitrogen 20 mg/dL (9-20); Calcium 9.6 mg/dL (8.4-10.2); Carbon Dioxide 26 mmol/L (22-30); Chloride 94 mmol/L (98-107); Glucose 97 mg/dL (74-99); Non-African American GFR(CKD) 81 (>60 ml/min/1.73 sqM); Potassium 3.8 mmol/L (3.5-5.1); Sodium 130 mmol/L (137-145)
[2022-05-12] MEDS ORDERED: CLINDAMYCIN 900 MG in DEXTROSE 5% IN WATER 50 ML IVPB PRN ×2 (07:00)
[2022-05-12] MEDS ORDERED: CLINDAMYCIN 600 MG in SODIUM CHLORIDE 0.9% 250 ML IRRIGATION PRN (07:00)
[2022-05-12] MEDS ORDERED: fentaNYL (PF) 50 MCG/ML 50 ML VIAL ONE (07:20)
[2022-05-12] MEDS ORDERED: LABETALOL 5 MG/ML VIAL MDV ONE (07:20)
[2022-05-12] MEDS ORDERED: DEXAMETHASONE SOD PHOSPHATE 10 MG/ML 1 ML VIAL ONE (07:20)
[2022-05-12] MEDS ORDERED: HEPARIN SODIUM,PORCINE 10,000 UNIT/ML 1 ML VIAL ONE (07:20)
[2022-05-12] MEDS ORDERED: fentaNYL (PF) 50 MCG/ML 2 ML AMP ONE (07:20)
[2022-05-12] MEDS ORDERED: NEOSTIGMINE 1 MG/ML 10 ML VIAL ONE (07:20)
[2022-05-12] MEDS ORDERED: PROTAMINE SULFATE 10 MG/ML 5 ML VIAL IV ONE (07:20)
[2022-05-12] MEDS ORDERED: PHENYLEPHRINE-0.9% NACL SYG 1,000 MCG/10 ML SYRINGE ONE ×2 (07:20)
[2022-05-12] MEDS ORDERED: MIDAZOLAM 2 MG/2 ML VIAL ONE (07:20)
[2022-05-12] MEDS ORDERED: PROPOFOL 10 MG/ML 20 ML VIAL IV ONE (07:20)
[2022-05-12] MEDS ORDERED: GLYCOPYRROLATE 0.2 MG/ML 2 ML VIAL ONE (07:20)
[2022-05-12] MEDS ORDERED: SUCCINYLCHOLINE CHLORIDE 100 MG/5 ML SYR IV ONE (07:20)
[2022-05-12] MEDS ORDERED: ROCURONIUM 10 MG/ML (5 ML VIAL) IV ONE (07:20)
[2022-05-12] MEDS ORDERED: ONDANSETRON 4 MG/2 ML VIAL ONE (07:20)
[2022-05-12] MEDS ORDERED: HYDROmorphone (PF) 1 MG/ML ONE (07:20)
[2022-05-12] MEDS ORDERED: NALOXONE 0.4 MG/ML 1 ML VIAL IVP PRN (11:44)
[2022-05-12] MEDS ORDERED: IOPAMIDOL-250 100ML BTL INTRAARTER ONE ×3 (11:46→11:47)
[2022-05-12] MEDS ORDERED: SUMAtriptan succinate 50 MG TAB PO PRN (11:46)
[2022-05-12] MEDS ORDERED: NITROGLYCERIN SL TABS 0.4 MG TAB SUBLINGUAL PRN (11:46)
[2022-05-12] MEDS ORDERED: NON FORMULARY DRUG (Naloxone Hcl [Narcan] 4 MG Spray) NASAL PRN (11:46)
[2022-05-12] MEDS ORDERED: IOPAMIDOL-370 50ML BTL INJ ONE (11:47)
[2022-05-12] MEDS ORDERED: IV FLUID CONTINUATION 500 ML IV ONE (11:55)
[2022-05-12] MEDS ORDERED: HYDROmorphone 0.5 MG/0.5 ML SYRINGE IVP ONE (12:30)
[2022-05-12 14:41] LABS: Glucose,Whole Blood 155 mg/dL (70-110)
[2022-05-12] MEDS ORDERED: SODIUM CHLORIDE 0.9% 1,000 ML in EMPTY BAG 1 BAG IV SCH (15:00)
[2022-05-12] MEDS ORDERED: ERGOCALCIFEROL 1,250 MCG (50,000 IU) CAPSULE PO SCH (15:00)
[2022-05-12] MEDS: oxyCODONE-APAP 10-325MG 1 EACH TAB PO PRN ×2 (15:03→20:22)
[2022-05-12] MEDS: HYDROmorphone 0.5 MG/0.5 ML SYRINGE IVP PRN ×3 (15:54→21:54)
[2022-05-12] MEDS ORDERED: METHYL SALICYLATE/MENTHOL CREAM 5 OZ TOPICAL PRN (16:14)
[2022-05-12] MEDS ORDERED: LORazepam 2 MG/ML INJ IV PRN (16:34)
[2022-05-12] MEDS: METHYL SALICYLATE-MENTHOL OINT (3 OZ TUBE) TOPICAL PRN (16:46)
[2022-05-12] MEDS: CLOPIDOGREL 75 MG TAB PO SCH (17:15)
[2022-05-12] MEDS: NICOTINE 14MG/24HR PATCH TRANSDERM SCH (17:15)
--- NOTE | 2022-05-12 18:18 | CONS ---
CONSULTATION REASON FOR CONSULTATION: Advice regarding hypertension, requested by Dr. Anaya. HISTORY OF PRESENT ILLNESS: This 76-year-old gentleman with a past medical history of hypertension, hyperlipidemia and multiple medical issues, being followed by Dr. Mario June in the outpatient setting, underwent abdominal aortic aneurysm repair by Dr. Anaya. The patient postoperatively had some elevation of blood pressure, which was relieved by pain medications. The patient also was complaining of left posterior scapular pain, which is rather chronic, resulting from an accident, according to him. There is no history of any fever, rigors or chills. PAST MEDICAL HISTORY: Past medical history includes hypertension and hyperlipidemia. MEDICATIONS: Home medications are reviewed and include amlodipine, Bentyl. Doses and the rest of the medications are reviewed. ALLERGIES: ALLERGIES are also reviewed and INCLUDE MORPHINE AND CEFAZOLIN. FAMILY HISTORY: History of stroke. SOCIAL HISTORY: History of smoking and alcohol. REVIEW OF SYSTEMS: Fourteen-point review of systems negative except as mentioned earlier. PHYSICAL EXAMINATION: Pulse is 51, blood pressure 140/70, respiration 16. HEENT: Conjunctivae normal. NECK: No jugular venous distention. CARDIOVASCULAR: S1, S2 muffled. RESPIRATION: Breath sounds diminished at the bases. A few scattered rhonchi. No crackles. ABDOMEN: Soft. Non-tender. LEGS: No edema. No swelling. NERVOUS SYSTEM: Moves all 4 limbs. No focal deficit. JOINTS: No active deforming arthropathy. LABS: Reviewed. Sodium 130. ASSESSMENT: 1. Status post endovascular repair of the abdominal aortic aneurysm. 2. Hypertension. 3. Hyperlipidemia. 4. Multiple medical problems. 5. History of ETOH. RECOMMENDATIONS AND DISCUSSION: In this 76-year-old gentleman who presented with multiple complex medical issues, I recommend resuming the home medications. p.r.n. may be used for blood pressure elevations. Optimize pain management. DVT prophylaxis. I would also recommend Ativan p.r.n. and watch for any alcohol withdrawal symptoms or DTs because the patient does have history of alcohol. Habitrol patch is also recommended. See orders for further details. We will follow the patient closely with you. The patient may be asked to follow up with Dr. Mario June closely after discharge. Thank you, Dr. Anaya. MMODL / IJN: [id number] / [facility]
[2022-05-12 19:57] LABS: Basophils # (A) 0.1 k/uL (0-0.2); Basophils % (A) 2 %; Eosinophils # (A) 0.3 k/uL (0-0.7); Eosinophils % (A) 4 %; HCT 45.1 % (39.0-53.0); HGB 15.2 gm/dL (13.0-17.5); Lymphocytes # (A) 1.4 k/uL (1.0-4.8); Lymphocytes % (A) 20 %; MCH 35.6 pg (25.0-35.0); MCHC 33.6 g/dL (31.0-37.0); Macrocytosis Slight; Monocytes # (A) 0.8 k/uL (0-1.0); Monocytes % (A) 11 %; Neutrophils # (A) 4.4 k/uL (1.3-7.7); Neutrophils % (A) 62 %; Platelet Count 298 k/uL (150-450); RBC 4.26 m/uL (4.30-5.90); RDW 11.9 % (11.5-15.5); WBC 7.1 k/uL (3.8-10.6)
[2022-05-12] MEDS: PRAVASTATIN SODIUM 40 MG TAB PO SCH (20:22)
[2022-05-12] MEDS: TEMAZEPAM 15 MG CAP PO PRN (23:12)
[2022-05-13 06:01] LABS: African American GFR (CKD) >90 (>60 ml/min/1.73 sqM); Non-African American GFR(CKD) >90 (>60 ml/min/1.73 sqM)
[2022-05-13 06:19] LABS: HCT 41.6 % (39.0-53.0); HGB 14.2 gm/dL (13.0-17.5); MCHC 34.1 g/dL (31.0-37.0); MCV 102.6 fL (80.0-100.0); Mean Platelet Volume 6.9; Platelet Count 228 k/uL (150-450); RBC 4.06 m/uL (4.30-5.90); RDW 11.8 % (11.5-15.5)
[2022-05-13] MEDS: LEVOTHYROXINE 50 MCG TAB PO SCH (06:27)
[2022-05-13] MEDS: HYDROmorphone 0.5 MG/0.5 ML SYRINGE IVP PRN ×2 (06:29→14:12)
[2022-05-13] MEDS: PANTOPRAZOLE 40 MG TABLET PO SCH (06:30)
[2022-05-13 06:33] LABS: African American GFR (CKD) >90 (>60 ml/min/1.73 sqM); Anion Gap 10 mmol/L; Blood Urea Nitrogen 15 mg/dL (9-20); Calcium 9.3 mg/dL (8.4-10.2); Carbon Dioxide 23 mmol/L (22-30); Chloride 92 mmol/L (98-107); Glucose 111 mg/dL (74-99); Non-African American GFR(CKD) >90 (>60 ml/min/1.73 sqM); Potassium 3.6 mmol/L (3.5-5.1); Sodium 125 mmol/L (137-145)
[2022-05-13] MEDS: amLODIPine 5 MG TAB PO SCH (08:06)
[2022-05-13] MEDS: NICOTINE 14MG/24HR PATCH TRANSDERM SCH (08:06)
[2022-05-13] MEDS: CLOPIDOGREL 75 MG TAB PO SCH (08:06)
[2022-05-13] MEDS: ASPIRIN 81 MG PO SCH (08:06)
[2022-05-13] MEDS: METOPROLOL SUCCINATE (ER) 50 MG TAB.ER.24H PO SCH (08:07)
[2022-05-13] MEDS: DICYCLOMINE 10 MG CAP PO SCH (08:07)
[2022-05-13] MEDS: ISOSORBIDE MONONITRATE ER 60 MG TAB.ER.24H PO SCH (08:07)
[2022-05-13] MEDS ORDERED: Potassium Replacement Protocol 1 EACH MISC MISCELLANE PRN (08:27)
[2022-05-13] MEDS: IPRATROPIUM 0.5 MG/2.5 ML NEBU INHALATION SCH ×4 (08:59→19:15)
[2022-05-13] MEDS: FORMOTEROL FUMARATE 20 MCG/2 ML NEBU INHALATION SCH ×2 (08:59→19:14)
[2022-05-13] MEDS ORDERED: ASPIRIN 81 MG PO SCH (09:00)
[2022-05-13] MEDS ORDERED: POTASSIUM CHLORIDE ER 20 MEQ TAB.ER PO SCH (09:00)
[2022-05-13] MEDS ORDERED: CHLORTHALIDONE 25 MG TAB PO SCH (09:00)
[2022-05-13] MEDS: SENNOSIDES 8.6 MG TAB PO PRN (09:20)
--- NOTE | 2022-05-13 09:55 | P.PN ---
Subjective Progress Note Date: 05/13/22 Principal diagnosis: Abdominal aortic aneurysm This pleasant 76-year-old male who had a CT angiogram that showed a 5.5 cm infrarenal abdominal aortic aneurysm. His past medical history includes a current smoker history of alcohol abuse, history of CVA, coronary artery disease status post pacemaker, abdominal aortic aneurysm and peripheral neuropathy. He was scheduled for endovascular aortic repair. He is postop day #1 for endovascular aortic aneurysm repair with stenting. He states that he is doing well overall. He has some pain in his back which he states is chronic. He does feel that he has to have a bowel movement but was unable to. Last bowel movement was on Thursday. He is asking for something to help him go. He has been urinating on his own, tolerating a regular diet. He is been afebrile, blood pressure has been stable 144/77. Morning labs are showing sodium at 125. Previous history of hyponatremia looking back at his prior blood work 120s to 136. Objective - Vital Signs Vital signs: Vital Signs Temp 98.0 F 05/13/22 08:00 Pulse 50 L 05/13/22 08:00 Resp 11 L 05/13/22 08:00 BP 160/80 05/13/22 08:00 Pulse Ox 95 05/13/22 08:00 FiO2 Intake & Output 05/12/22 05/13/22 05/13/22 18:59 06:59 18:59 Intake Total 450 240 Output Total 700 880 50 Balance -250 -880 190 Weight 60.2 kg Intake: IV 150 Intake, IV Titration 300 Amount Sodium Chloride 0.9% 1, 300 000 ml In Empty Bag 1 bag @ 1 ML/KG/HR 58.967 mls/ hr IV .[id number] ONE Rx#: [id number] Oral 240 Output: Urine 700 880 50 Other: Voiding Method Indwelling Catheter Indwelling Catheter Urinal ABP, PAP, CO, CI - Last Documented Arterial Blood Pressure 158/52 - Exam General appearance: The patient is alert, oriented, appears in no acute distress. HET: Head is normocephalic and atraumatic. Pupils are equal and reactive. Neck: Supple without lymphadenopathy. Trachea midline. Heart: S1 S2. Regular rate and rhythm. Lungs: Clear to auscultation bilaterally. Abdomen: Soft, nontender, nondistended. Extremities: Normal skin color and turgor. Bilateral groin procedure sites with dressing clean dry and intact. No palpable hematoma. No signs of bleeding. No cyanosis, rash, ulceration, clubbing, or edema. Radial and pedal pulses are 2/4 bilaterally. Neurological: No focal deficits. Strength and sensation are grossly intact. - Labs CBC & Chem 7: 05/13/22 05:35 05/13/22 05:35 Labs: Abnormal Lab Results - Last 24 Hours (Table) 05/12/22 05/12/22 05/13/22 Range/Units 06:20 14:39 05:35 WBC 14.0 H (3.8-10.6) k/uL RBC 4.26 L 4.06 L (4.30-5.90) m/uL MCV 106.0 H 102.6 H (80.0-100.0) fL MCH 35.6 H (25.0-35.0) pg Sodium (137-145) mmol/L Chloride (98-107) mmol/L Glucose (74-99) mg/dL POC Glucose (mg/dL) 155 H (70-110) mg/dL 05/13/22 Range/Units 05:35 WBC (3.8-10.6) k/uL RBC (4.30-5.90) m/uL MCV (80.0-100.0) fL MCH (25.0-35.0) pg Sodium 125 L (137-145) mmol/L Chloride 92 L (98-107) mmol/L Glucose 111 H (74-99) mg/dL POC Glucose (mg/dL) (70-110) mg/dL Assessment and Plan Assessment: 1. Postop day #1 for endovascular aortic aneurysm repair with stenting 2. Abdominal aortic aneurysm measuring 5.[address] angiogram 3. Hyponatremia, chronic 4. Current every day smoker 5. History of a call abuse 6. History of coronary artery disease status post pacemaker Plan: 1. Encourage ambulation 2. Senokot ordered for constipation 3. Nephrology consulted for hyponatremia, appreciate their recommendations 4. Discontinue A-line 5. Plan for possible discharge later this evening if cleared by medicine and nephrology otherwise may transfer to [facility] of care 6. Continue current medications The impression and plan of care has been dictated as directed. Dr.Cuppari Alicia performed a history and examination of this patient, discussed the same with the dictator. I agree with the dictator's note ,documented as a scribe. Any additional findings or plans will be noted.
--- NOTE | 2022-05-13 10:57 | P.NPCON ---
History of Present Illness - Reason for Consult hyponatremia - History of Present Illness Reason for consultation: Hyponatremia History of present illness: Patient is a 76-year-old male seen in renal consultation for hyponatremia. Patient seems to have chronic hyponatremia with sodium levels ranging from 125- 136 over the last few years. Sodium level yesterday was 1:30 and is 125 today. Patient underwent endovascular aortic aneurysm repair with stenting on 05/12/2022. Currently is resting in bed. He admits to soreness at the surgical site. Saunders catheter was removed this morning and he has been voiding. No hematuria. No vomiting. He does complain of constipation. He denies any history of malignancy. He is taking chlorthalidone as part of his antihypertensive regimen. Denies chest pain or shortness of breath. He does admit to drinking 3 cans of beer on weekends. At this time he states his appetite is quite poor but he didn't drinking fluids. Blood pressure is stable. Vital signs are stable. General: Awake. No acute distress. HEENT: Head exam is unremarkable. LUNGS: Breath sounds decreased. HEART: Rate and Rhythm are regular. ABDOMEN: Soft, no distention. Generalized tenderness present. EXTREMITITES: No edema. Past Medical History Past Medical History: Cancer, Chest Pain / Angina, Hyperlipidemia, Hypertension, Myocardial Infarction ([place]), Osteoarthritis (OA), Syncope, Thyroid Disorder Additional Past Medical History / Comment(s): [place] X2 ("in my 30's), SKIN CA, pain lower spine and legs, rectal bleeding , irregular heart beat, low sodium, see Dr. Fink's H&P. Last Myocardial Infarction Date:: approx 40 yrs ago History of Any Multi-Drug Resistant Organisms: None Reported Past Surgical History: Back Surgery, Heart Catheterization, Hernia Repair, Orthopedic Surgery, Pacemaker, Tonsillectomy Additional Past Surgical History / Comment(s): LAMINECTOMY & PLACEMENT OF NEUROSTIMULATOR, repositioned them later removed. Kashif catarats. Past Anesthesia/Blood Transfusion Reactions: Motion Sickness, Postoperative Nausea & Vomiting (PONV) Type of Cardiac Device: Permanent Pacemaker Device Placement Date:: October 2017 Past Psychological History: Anxiety, Depression Smoking Status: Current every day smoker Past Alcohol Use History: Daily Additional Past Alcohol Use History / Comment(s): LESS THAN 1ppd. pt states that he usually drinks alcohol on the weekend 6-7 beers, states now smoking about 1/2 ppd. Past Drug Use History: Marijuana Additional Drug Use History / Comment(s): denies - Past Family History Mother Family Medical History: Cancer Additional Family Medical History / Comment(s): cva with residual left leg weakness April 2020 Father Family Medical History: Cancer Brother(s) Family Medical History: Cancer Medications and Allergies Home Medications Medication Instructions Recorded Confirmed Type oxyCODONE HCL/ACETAMINOPHEN 1 tab PO Q6H PRN 07/16/17 05/12/22 History [Percocet 10-325 mg] Dicyclomine [Bentyl] 10 mg PO DAILY 01/31/20 05/12/22 History Aspirin EC [Ecotrin Low Dose] 81 mg PO DAILY 06/17/21 05/09/22 History Levothyroxine Sodium [Synthroid] 50 mcg PO DAILY 06/17/21 05/12/22 History Metoprolol Succinate (ER) [Toprol 50 mg PO QAM 06/17/21 05/12/22 History XL] Naloxone HCl [Narcan] 4 mg NASAL ONCE PRN 06/17/21 05/09/22 History Nitroglycerin Sl Tabs [Nitrostat] 0.4 mg SUBLINGUAL Q5M PRN 06/17/21 05/09/22 History SUMAtriptan succinate [Imitrex] 50 mg PO BID PRN 07/08/21 05/09/22 History Apixaban [Eliquis] 5 mg PO QAM 03/20/22 05/09/22 History Chlorthalidone [Hygroton] 25 mg PO QAM 03/20/22 05/12/22 History Ergocalciferol (Vitamin D2) 1,250 mcg PO MO 03/20/22 05/12/22 History [Drisdol (50,000 Iu)] Esomeprazole Magnesium [NexIUM] 40 mg PO QAM 03/20/22 05/12/22 History Umeclidinium Brm/Vilanterol Tr 1 puff INHALATION RT-DAILY 03/20/22 05/12/22 History [Anoro Ellipta 62.5-25 Mcg INH] amLODIPine [Norvasc] 5 mg PO QAM 03/20/22 05/12/22 History Atorvastatin [Lipitor] 80 mg PO HS #90 tab 03/21/22 05/12/22 Rx Isosorbide Mononitrate ER [Imdur] 60 mg PO QAM 05/09/22 05/12/22 History Allergies Allergy/AdvReac Type Severity Reaction Status Date / Time cefazolin Allergy Rash/Hives Verified 05/09/22 10:08 cefazolin sodium [From [facility]] Allergy Rash/Hives Verified 05/09/22 10:08 morphine AdvReac Nausea & Verified 05/09/22 10:08 Vomiting Physical Exam Vitals: Vital Signs Temp Pulse Pulse Resp BP BP Pulse Ox 05/13/22 09:00 72 11 L 144/77 95 05/13/22 08:00 98.0 F 67 50 L 11 L 160/80 95 05/13/22 07:00 72 19 154/82 92 L 05/13/22 06:00 52 L 13 151/84 05/13/22 05:00 60 10 L 132/79 05/13/22 04:00 62 12 158/93 95 05/13/22 03:00 74 15 146/86 05/13/22 02:00 53 L 21 162/80 94 L 05/13/22 01:00 52 L 22 152/83 95 05/13/22 00:00 98.4 F 56 L 15 152/80 93 L 05/12/22 23:00 44 L 12 149/90 95 05/12/22 22:00 56 L 14 144/76 93 L 05/12/22 21:00 61 15 153/85 95 05/12/22 20:00 98 F 63 16 153/85 93 L 05/12/22 19:00 68 16 93 L 05/12/22 18:45 65 16 100 05/12/22 18:30 53 L 16 94 L 05/12/22 18:15 55 L 22 155/76 94 L 05/12/22 18:00 66 17 164/95 05/12/22 17:45 24 94 L 05/12/22 17:30 55 L 19 94 L 05/12/22 17:15 53 L 17 147/84 95 05/12/22 17:00 54 L 17 95 05/12/22 16:45 53 L 22 94 L 05/12/22 16:30 50 L 21 95 05/12/22 16:15 52 L 10 L 167/77 95 05/12/22 16:00 97.6 F 51 L 22 96 06/20/22 15:45 50 L 16 158/78 95 05/12/22 15:30 49 L 15 150/79 95 05/12/22 15:15 52 L 24 150/79 95 05/12/22 15:00 49 L 10 L 146/82 95 05/12/22 14:45 56 L 17 95 05/12/22 14:40 52 L 16 05/12/22 14:00 50 L 16 124/68 95 05/12/22 13:45 52 L 16 126/68 95 05/12/22 13:25 52 L 16 129/63 96 05/12/22 13:10 51 L 16 148/73 99 05/12/22 12:55 54 L 149/74 99 05/12/22 12:40 55 L 16 145/78 99 05/12/22 12:25 55 L 16 154/77 99 05/12/22 12:10 56 L 18 156/78 97 05/12/22 11:55 96.8 F L 62 16 158/74 98 Intake and Output 05/12/22 05/13/22 05/13/22 22:59 06:59 14:59 Intake Total 300 240 Output Total 900 580 50 Balance -600 -580 190 Intake: Intake, IV Titration 300 Amount Sodium Chloride 0.9% 1, 300 000 ml In Empty Bag 1 bag @ 1 ML/KG/HR 58.967 mls/ hr IV .[id number] ONE Rx#: [id number] Oral 240 Output: Urine 900 580 50 Other: Voiding Method Indwelling Catheter Indwelling Catheter Urinal Weight 60.2 kg ABP, PAP, CO, CI - Last 8 Hours Arterial Blood Pressure 158/52 Arterial Blood Pressure 156/56 Arterial Blood Pressure 186/79 Results - Lab Results Most recent lab results Calcium 9.3 mg/dL (8.4-10.2) 05/13/22 05:35 05/13/22 05:35 05/13/22 05:35 Assessment and Plan Plan: Assessment: 1. Hyponatremia. Component of hypovolemia and poor solute intake. Also on thiazide diuretic. Sodium level 125 today. 2. Status post endovascular aortic aneurysm repair for stenting 05/12/2022. 3. Benign hypertension. 4. History of coronary artery disease with dilated cardiomyopathy status post pacemaker placement. Plan: Start normal saline at 50 mL an hour. Stop chlorthalidone. Increase amlodipine to 5 mg twice daily. Encourage oral intake. 1200 mL fluid restriction. Check bladder scan to make sure no urinary retention. Check serum and urine osmolality and urine sodium level. Check TSH. Repeat labs in the morning. Thank you for the consultation. I will continue to follow this patient with you during his hospital stay.
[2022-05-13] MEDS: SODIUM CHLORIDE 0.9% 1,000 ML IV SCH (11:47)
[2022-05-13 15:04] LABS: Appearance,Urine Clear (Clear); Bacteria,Urine Moderate /hpf; Bilirubin,Urine Negative (Negative); Blood,Urine Small (Negative); Color,Urine Yellow; Glucose,Urine (UA) Negative (Negative); Ketones,Urine Negative (Negative); Leukocyte Esterase,Urine Small (Negative); Mucus,Urine Rare /hpf; Nitrite,Urine Positive (Negative); Protein,Urine Negative (Negative); RBC,Urine 12 /hpf (0-5); Specific Gravity,Urine 1.016 (1.001-1.035); Squamous Epithelial Cell,Urine <1 /hpf (0-4); Urobilinogen,Urine <2.0 mg/dL (<2.0); WBC,Urine 7 /hpf (0-5)
--- NOTE | 2022-05-13 15:14 | PN ---
PROGRESS NOTE DATE OF SERVICE: 05/13/2022. This 76-year-old gentleman admitted after endovascular repair of the aortic aneurysm also complains of back pain, which is probably resulting from his old injury. The patient no chest pain or palpitation. The patient is able to ambulate. PHYSICAL EXAMINATION: Pulse is 77. Blood pressure 120/79, respiration 19. Neck is no jugular venous distention. Cardiovascular: S1, S2 muffled. Respiration: A few scattered rhonchi. Abdomen: Soft. Nervous system: No focal deficits. LABS: Reviewed. WBC 14. Sodium 125. ASSESSMENT: 1. Status post endovascular repair of abdominal aortic aneurysm. 2. Hypertension. 3. Hyperlipidemia. 4. History of multiple medical problems. 5. Mild hyponatremia. 6. History of ETOH. RECOMMENDATIONS AND DISCUSSION: Recommend to continue current medications. Continue the pain management. Also recommend repeat labs. Recommend a UA with micro also to complete the workup. Closely follow with vascular surgery. MMODL / IJN: [id number] /
[2022-05-13] MEDS: oxyCODONE-APAP 10-325MG 1 EACH TAB PO PRN (20:35)
[2022-05-13] MEDS: PRAVASTATIN SODIUM 40 MG TAB PO SCH (20:36)
[2022-05-13] MEDS: APIXABAN 5 MG TAB PO SCH (20:37)
[2022-05-14] MEDS: HYDROmorphone 0.5 MG/0.5 ML SYRINGE IVP PRN (04:29)
[2022-05-14] MEDS: SODIUM CHLORIDE 0.9% 1,000 ML IV SCH (06:42)
[2022-05-14] MEDS: LEVOTHYROXINE 50 MCG TAB PO SCH (06:42)
[2022-05-14] MEDS: PANTOPRAZOLE 40 MG TABLET PO SCH (06:42)
--- NOTE | 2022-05-14 06:42 | P.OP ---
Description of Procedure: Date: n't Preoperative diagnosis: Asymptomatic Pararenal 5.7 cm AAA Postoperative diagnosis: Same Procedure: 1. Percutaneous Endovascular aortic repair with Paxton device and left renal artery chimney stenting with VBX stent. 2. Ultrasound-guided bilateral common femoral artery access 3. Percutaneous closure of bilateral femoral arteries 4. Selective left renal artery angiogram Surgeon: Jaclyn SORIA Anesthesia: General Estimated blood loss: 25 mL Complications: None Condition: Stable Disposition: Palpable DP pulses bilaterally and radial pulse on the left Indications: 76-year-old gentleman who presented to the office secondary to increasing size of his known AAA as well as complaints of abdominal pain and back pain. CTA was obtained and demonstrated pararenal 5.7 cm AAA involving the left renal artery. I discussed with him options including open repair versus endovascular repair which he would rather have and therefore he presents today for endovascular aortic repair with left renal artery chimney stenting. Operative narrative: After written and informed consent was obtained from the patient all risks benefits and complications were described the patient was brought to the [employer] and laid in a supine position. The area of the groins were prepped and draped in usual sterile fashion after appropriate anesthetic was performed per the anesthesiologist. A timeout was performed in normal fashion and antibiotics were administered prior to incisions. Utilizing ultrasound bilateral common femoral arteries were visualized demonstrating patency with minimal calcification. Under ultrasound guidance utilizing a multipurpose needle bilateral common femoral arteries were accessed and guidewire was placed followed by deployment of 2 Perclose closure devices for each femoral artery. Utilizing Seldinger technique and 8-Serbian sheath was then placed and patient was administered heparin and followed with ACTs. Attention was placed to the left brachial artery and under ultrasound guidance a 6-Serbian sheath was placed. An 035 glidwire was placed under imaging into the aortic arch and directed to the descending aorta with the assistance of a pigtail catheter. Once wire was above the renal arteries the sheath was removed and replaced with a long 7F destination sheath. Aortogram was obtained demonstrating a large pararenal aneurysm and the takeoff of the left renal artery was located. Utilizing the 035 glidewire the left renal artery was accessed and angled glide catheter was placed into the renal artery. Selective left renal artery angiogram was obtained demonstrating good intraluminal access. A Gustafson wire was then placed and the destination sheath was guided into the left renal artery. Attention was then placed back to the groin access and the aortic graft procedure. An 035 Glidewire was then placed up the right femoral sheath and exchanged for a Lunderquist wire through an angled glide catheter. The right femoral artery was then utilized and guidewire was placed followed by pigtail catheter and aortogram was obtained. Utilizing the Lunderquist wire a 26mm main body device was then loaded over the guidewire after the 8-Serbian sheath was removed. Delivery system was then placed 1 cm proximal to the intended landing site and the aortic body was oriented for appropriate access for the contralateral limb. Delivery system was then retracted out of the sheath and the aortic body radiopaque markers were verified to be in the correct position at the level of the right renal artery. First segment of the graft was then deployed in normal fashion by releasing and pulling the knob in normal fashion. Balloon injection port was then inflated utilizing a 4-1 saline contrast mixture in order to open the mid crown. Balloon was then deflated. Precise positioning was then performed with utilizing the radiopaque markers and parallax was removed and our to land at the right renal artery covering the left renal artery. Attention was placed back to the brachial access and a 6x59mm VBX stent was guided into position within the left renal artery. Pigtail catheter was then retracted away from the proximal stent and the proximal stent was released in normal fashion. The left renal sheath was retracted and VBX stent was deployed in normal fashion. Once stent was deployed the main body stent balloon was also inflated and balloon up technique was performed when doploying the polymer. The polymer was then utilized and filled through the polymer port which was visualized under fluoroscopy. Attention was then placed to accessing the contralateral limb. Utilizing the Glidewire and angled glide catheter the contralateral limb was accessed and pigtail catheter was placed. Once 14 minutes was allowed to mold around the renal stent the balloons were defated and the pigtail catheter was then spun to verify intragraft cannulation. A stiff wire was then placed within the pigtail catheter and retrograde angiogram was obtained demonstrating the internal iliac artery takeoff. Measurements were obtained and a [id number] Ovation limb was chosen to be deployed and deployed in normal fashion. Once completed the aortic main body was completely deployed in normal fashion. Utilizing the balloon balloon angioplasty was performed at the ring to further mold the polymer to the aortic neck again for another 2 minutes. Balloon was retracted into the ipsilateral limb and through the contralateral limb an aortogram was obtained demonstrating a type I endoleak. The aortic body deployment sheath was removed in normal fashion. Pigtail catheter was then placed over the Lunderquist wire and retrograde angiogram was obtained with measurements to the internal iliac artery on the ipsilateral limb. A [id number] Ovation limb was chosen and deployed in normal fashion. Once completed two 12 x 40mm balloons were placed up each iliac limb and balloon angioplasty was performed through its entirety. A Coda balloon was placed and aortic rings were ballooned again with decrease endoleak noted but still present. The right femoral sheath was then removed and replaced with a 16F sheath to the aortic rings and a Palmaz stent was placed in usual fashion. Once completed balloons were removed and pigtail catheter was placed above the graft and final angiogram was obtained demonstrating exclusion of the aneurysm with no evidence of endoleak's. All guidewires and catheters were then removed and the Perclose closure devices were closed in normal fashion. The areas were then cleansed and dressings were placed. The patient tolerated procedure well and had palpable DP pulses and was sent to PACU for recovery.
[2022-05-14] MEDS ORDERED: LACTULOSE 20 GM/30 ML CUP PO ONE (07:43)
[2022-05-14] MEDS: FORMOTEROL FUMARATE 20 MCG/2 ML NEBU INHALATION SCH ×2 (08:01→19:44)
[2022-05-14] MEDS: IPRATROPIUM 0.5 MG/2.5 ML NEBU INHALATION SCH ×4 (08:01→19:44)
[2022-05-14] MEDS: oxyCODONE-APAP 10-325MG 1 EACH TAB PO PRN ×3 (08:09→20:19)
[2022-05-14] MEDS: METOPROLOL SUCCINATE (ER) 50 MG TAB.ER.24H PO SCH (08:11)
[2022-05-14] MEDS: NICOTINE 14MG/24HR PATCH TRANSDERM SCH (08:11)
[2022-05-14] MEDS: amLODIPine 5 MG TAB PO SCH (08:11)
[2022-05-14] MEDS: ASPIRIN 81 MG PO SCH (08:11)
[2022-05-14] MEDS: ISOSORBIDE MONONITRATE ER 60 MG TAB.ER.24H PO SCH (08:11)
[2022-05-14] MEDS: CLOPIDOGREL 75 MG TAB PO SCH (08:11)
[2022-05-14] MEDS: APIXABAN 5 MG TAB PO SCH ×2 (08:11→20:17)
[2022-05-14] MEDS: DICYCLOMINE 10 MG CAP PO SCH (08:11)
[2022-05-14 08:20] LABS: Basophils # (A) 0.1 k/uL (0-0.2); Basophils % (A) 0 %; Eosinophils # (A) 0.1 k/uL (0-0.7); Eosinophils % (A) 1 %; HCT 43.4 % (39.0-53.0); HGB 15.2 gm/dL (13.0-17.5); Lymphocytes # (A) 1.1 k/uL (1.0-4.8); Lymphocytes % (A) 8 %; MCH 35.5 pg (25.0-35.0); MCHC 34.9 g/dL (31.0-37.0); MCV 101.8 fL (80.0-100.0); Mean Platelet Volume 6.7; Monocytes % (A) 8 %; Neutrophils # (A) 10.8 k/uL (1.3-7.7); Neutrophils % (A) 82 %; Platelet Count 244 k/uL (150-450); RBC 4.27 m/uL (4.30-5.90); RDW 12.1 % (11.5-15.5); WBC 13.2 k/uL (3.8-10.6)
--- NOTE | 2022-05-14 08:25 | IR ---
EXAMINATION TYPE: IR banquet captain aorta DATE OF EXAM: 05/12/2022 COMPARISON: NONE HISTORY: Fluoroscopy time. Fluoroscopy was provided to the referring clinician.
[2022-05-14 08:32] LABS: ALT 16 U/L (4-49); AST 35 U/L (17-59); African American GFR (CKD) >90 (>60 ml/min/1.73 sqM); Albumin 4.2 g/dL (3.5-5.0); Alkaline Phosphatase 56 U/L (38-126); Anion Gap 9 mmol/L; Blood Urea Nitrogen 15 mg/dL (9-20); Calcium 9.4 mg/dL (8.4-10.2); Carbon Dioxide 23 mmol/L (22-30); Chloride 92 mmol/L (98-107); Glucose 95 mg/dL (74-99); Magnesium 1.4 mg/dL (1.6-2.3); Non-African American GFR(CKD) >90 (>60 ml/min/1.73 sqM); Potassium 3.8 mmol/L (3.5-5.1); Sodium 124 mmol/L (137-145); Total Bilirubin 1.1 mg/dL (0.2-1.3); Total Protein 6.9 g/dL (6.3-8.2)
--- NOTE | 2022-05-14 08:57 | XR ---
EXAMINATION TYPE: XR chest 2V DATE OF EXAM: 05/14/2022 COMPARISON: 03/20/2022 HISTORY: Shortness of breath TECHNIQUE: Frontal and lateral views of the chest are obtained. FINDINGS: Scattered senescent parenchymal changes noted. Hyperinflation compatible with COPD. Increased density left lower lobe may reflect developing pneumonia. Correlate clinically. Heart size is stable. Mediastinal structures are stable and grossly unremarkable. No evidence for hilar prominence. Degenerative changes dorsal spine. IMPRESSION: 1. Increased density left lower lobe may reflect developing pneumonia. Correlate clinically.
[2022-05-14] MEDS ORDERED: APIXABAN 5 MG TAB PO SCH (09:00)
[2022-05-14] MEDS ORDERED: NA PHOS,M-B/NA PHOS,DI-BA 133 ML ENEMA RECTAL ONE (09:26)
[2022-05-14] MEDS ORDERED: TOLVAPTAN 15 MG TABLET PO ONE (09:31)
--- NOTE | 2022-05-14 09:32 | P.PN ---
Subjective Patient is seen in follow-up for hyponatremia. Sodium level 124 today. Receiving IV fluids. Oral intake is poor. No vomiting or diarrhea. Complains of generalized pain. Also had episode of chest pain last night. Vital signs are stable. General: Awake. No acute distress. HEENT: Head exam is unremarkable. LUNGS: Breath sounds decreased. HEART: Rate and Rhythm are regular. ABDOMEN: Soft, no distention. Generalized tenderness. EXTREMITITES: No edema. Objective - Vital Signs Vital signs: Vital Signs Temp 98.5 F 05/14/22 04:00 Pulse 77 05/14/22 04:00 Resp 18 05/14/22 04:00 BP 157/84 05/14/22 04:00 Pulse Ox 95 05/14/22 04:00 FiO2 Intake & Output 05/13/22 05/14/22 05/14/22 18:59 06:59 18:59 Intake Total 440 100 Output Total 350 Balance 90 100 Intake: IV 100 100 Sodium Chloride 0.9% 1, 100 100 000 ml @ 50 mls/hr IV . Q20H BECKY Rx#:[id number] Intake, IV Titration 100 Amount Sodium Chloride 0.9% 1, 100 000 ml @ 50 mls/hr IV . Q20H BECKY Rx#:[id number] Oral 240 Output: Urine 350 Other: Voiding Method Urinal Urinal # Voids 1 ABP, PAP, CO, CI - Last Documented Arterial Blood Pressure 158/52 - Labs CBC & Chem 7: 05/14/22 07:51 05/14/22 07:51 Labs: Abnormal Lab Results - Last 24 Hours (Table) 05/13/22 05/13/22 05/14/22 Range/Units 05:35 14:42 07:51 WBC (3.8-10.6) k/uL RBC (4.30-5.90) m/uL MCV (80.0-100.0) fL MCH (25.0-35.0) pg Neutrophils # (1.3-7.7) k/uL Sodium 124 L (137-145) mmol/L Chloride 92 L (98-107) mmol/L Osmolality 264 L (280-301) mosm/kg Magnesium 1.4 L (1.6-2.3) mg/dL TSH 6.740 H (0.465-4.680) mIU/L Urine Blood Small H (Negative) Ur Leukocyte Esterase Small H (Negative) Urine RBC 12 H (0-5) /hpf Urine WBC 7 H (0-5) /hpf Urine Bacteria Moderate H (None) /hpf Urine Mucus Rare H (None) /hpf 05/14/22 Range/Units 07:51 WBC 13.2 H (3.8-10.6) k/uL RBC 4.27 L (4.30-5.90) m/uL MCV 101.8 H (80.0-100.0) fL MCH 35.5 H (25.0-35.0) pg Neutrophils # 10.8 H (1.3-7.7) k/uL Sodium (137-145) mmol/L Chloride (98-107) mmol/L Osmolality (280-301) mosm/kg Magnesium (1.6-2.3) mg/dL TSH (0.465-4.680) mIU/L Urine Blood (Negative) Ur Leukocyte Esterase (Negative) Urine RBC (0-5) /hpf Urine WBC (0-5) /hpf Urine Bacteria (None) /hpf Urine Mucus (None) /hpf Assessment and Plan Plan: Assessment: 1. Hyponatremia. Component of hypovolemia and poor solute intake. was also on thiazide diuretic. Sodium level 124 today. Urine sodium 101 and urine osmolality 491. TSH 6.74. 2. Status post endovascular aortic aneurysm repair for stenting 05/12/2022. 3. Benign hypertension. 4. History of coronary artery disease with dilated cardiomyopathy status post pacemaker placement. 5. Alcohol abuse. 6. Hypomagnesemia from poor intake, diuretic and chronic alcohol abuse. Plan: Hep-Lock IV fluids. Stopped chlorthalidone - last dose given on 05/13/2022. Encourage oral intake. 1200 mL fluid restriction. Replace magnesium. Hold off on sodium chloride tab due to hypertension. Samsca 7.5 mg once today.
--- NOTE | 2022-05-14 09:46 | P.PN ---
Subjective Progress Note Date: 05/14/22 Principal diagnosis: Abdominal aortic aneurysm This pleasant 76-year-old male who had a CT angiogram that showed a 5.5 cm infrarenal abdominal aortic aneurysm. His past medical history includes a current smoker history of alcohol abuse, history of CVA, coronary artery disease status post pacemaker, abdominal aortic aneurysm and peripheral neuropathy. He was scheduled for endovascular aortic repair. He is postop day #2 for endovascular aortic aneurysm repair with left renal artery stent. Patient states he was having chest pain through the night. EKG with no changes. Was given nitro with no relief. He stated then he was anxious and could not sleep he just wanted to sleep, he was given Ativan and chest pain improved and he fell asleep. This morning stating has chest pain across his entire chest reported to Dr. Saunders was a pressure-like chest. He's also having chronic pain in his back and states all over. No bowel movement since Thursday. No nausea or vomiting reported. He's been afebrile. WBC 13.2 hemoglobin 15 platelet count 244,000 sodium 124 potassium 3.8B 1:15 creatinine 0.7 magnesium 1.4. Troponin ordered, currently pending. Chest x-ray ordered with findings of increased density left lower lobe may reflect developing pneumonia. Correlate clinically. Objective - Vital Signs Vital signs: Vital Signs Temp 98.5 F 05/14/22 04:00 Pulse 77 05/14/22 04:00 Resp 18 05/14/22 04:00 BP 157/84 05/14/22 04:00 Pulse Ox 95 05/14/22 04:00 FiO2 Intake & Output 05/13/22 05/14/22 05/14/22 18:59 06:59 18:59 Intake Total 440 100 Output Total 350 Balance 90 100 Intake: IV 100 100 Sodium Chloride 0.9% 1, 100 100 000 ml @ 50 mls/hr IV . Q20H [facility] Rx#:[id number] Intake, IV Titration 100 Amount Sodium Chloride 0.9% 1, 100 000 ml @ 50 mls/hr IV . Q20H [facility] Rx#:[id number] Oral 240 Output: Urine 350 Other: Voiding Method Urinal Urinal # Voids 1 ABP, PAP, CO, CI - Last Documented Arterial Blood Pressure 158/52 - Exam General appearance: The patient is alert, oriented, appears in no acute distress. HET: Head is normocephalic and atraumatic. Pupils are equal and reactive. Neck: Supple without lymphadenopathy. Trachea midline. Heart: S1 S2. Regular rate and rhythm. Lungs: Clear to auscultation bilaterally. Chest: Chest wall with normal expansion, patient has diffuse tenderness to palpation along the anterior chest wall. Abdomen: Soft, nontender, positive bowel sounds, nondistended. Extremities: Normal skin color and turgor. Bilateral groin procedure sites with dressing clean dry and intact. No palpable hematoma. No signs of bleeding. No cyanosis, rash, ulceration, clubbing, or edema. Radial and pedal pulses are 2/4 bilaterally. Neurological: No focal deficits. Strength and sensation are grossly intact. - Labs CBC & Chem 7: 05/14/22 07:51 05/14/22 07:51 Labs: Abnormal Lab Results - Last 24 Hours (Table) 05/13/22 05/13/22 Range/Units 05:35 14:42 Osmolality 264 L (280-301) mosm/kg Urine Blood Small H (Negative) Ur Leukocyte Esterase Small H (Negative) Urine RBC 12 H (0-5) /hpf Urine WBC 7 H (0-5) /hpf Urine Bacteria Moderate H (None) /hpf Urine Mucus Rare H (None) /hpf Assessment and Plan Assessment: 1. Postop day 2 for endovascular aortic aneurysm repair with stenting 2. Abdominal aortic aneurysm measuring 5.[address] angiogram 3. Hyponatremia, acute on chronic 4. Chest pain, appears to be atypical possible musculoskeletal 5. Hypomagnesemia 6. Current every day smoker 7. History of a call abuse 8. History of coronary artery disease status post pacemaker Plan: 1. Encourage ambulation 2. Lactulose and fleets enema ordered 3. Nephrology consulted for hyponatremia, appreciate their recommendations 4. Chest x-ray ordered and reviewed 5. Troponin ordered 6. Replace magnesium 7. Transition admitting care to medicine team Dr. Apodaca 8. Cardiology consulted, their recommendations appreciated The impression and plan of care has been dictated as directed. Dr. Saunders I performed a history and examination of this patient, discussed the same with the dictator. I agree with the dictator's note ,documented as a scribe. Any additional findings or plans will be noted.
[2022-05-14] MEDS: SENNOSIDES 8.6 MG TAB PO PRN (10:38)
[2022-05-14] MEDS: MAGNESIUM SULFATE-D5W PMX 1 GM in DEXTROSE/WATER 1 100ML.BAG IVPB SCH ×2 (10:39→13:17)
--- NOTE | 2022-05-14 11:09 | P.CRDCN ---
History of Present Illness Consult date: 05/14/22 History of present illness: HISTORY OF PRESENT ILLNESS: This is a 76-year-old male with a past medical history significant for coronary artery disease, permanent pacemaker, abdominal aortic aneurysm, and paroxysmal atrial fibrillation. Patient follows in the office with Dr. Sullivan. We have been asked to see the patient in consultation for chest pain. Patient is status post percutaneous endovascular aortic repair with alto device and left renal artery chimney stenting with VBX stent. Patient examined at the bedside. Patient reports he has had some chest pain overnight and this morning. He reports the pain goes across his entire chest. The pain is not worse with deep inspiration. He does report pain with chest wall palpation. Troponin was obtained this morning which was negative. EKG obtained this morning reviewed which does not r eveal any evidence of ischemia. It is noted that the patient had a cardiac catheterization in June 2021 revealing calcified right and left coronary systems with mild non-obstructive coronary artery disease. Echocardiogram completed in 2019 revealed moderate LVH with ejection fraction 55-60% with trace to mild MR and mild TR. REVIEW OF SYSTEMS: At the time of my exam: CONSTITUTIONAL: Denies fever or chills. HEENT: Denies blurred vision, vision changes, or eye pain. Denies hemoptysis CARDIOVASCULAR: Denies chest pain. Denies orthopnea. Denies PND. Denies pa lpitations RESPIRATORY: Denies shortness of breath. GASTROINTESTINAL: Denies abdominal pain. Denies nausea or vomiting. HEMATOLOGIC: Denies bleeding disorders. GENITOURINARY: Denies any blood in urine. SKIN: Denies pruitis. Denies rash. PHYSICAL EXAM: VITAL SIGNS: Reviewed. GENERAL: Well-developed in no acute distress. HEENT: Head is normocephalic. Pupils are equal, round. Sclerae anicteric. Mucous membranes of the mouth are moist. Neck supple. No JVD or thyromegaly LUNGS: Respirations even and unlabored. Lungs essentially clear to auscultation bilaterally. HEART: Regular rate and rhythm. S1 and S2 heard. ABDOMEN: Soft. Nondistended. Nontender. EXTREMITIES: Normal range of motion. No clubbing or cyanosis. Peripheral pulses intact. No lower extremity edema NEUROLOGIC: Awake and alert. Oriented x 3. ASSESSMENT: Abdominal aortic aneurysm, status post endovascular repair with stenting Chest pain, atypical, troponin negative and EKG nonischemic Mild and objective coronary artery disease per cardiac catheterization in 2020 History of permanent pacemaker insertion Paroxysmal atrial fibrillation Hypertension Hyperlipidemia PLAN: An acute coronary event has been ruled out No need to obtain echo at this time Continue current cardiac medications Further recommendations pending patient's course Nurse practitioner note has been reviewed by physician. Signing provider agrees with the documented findings, assessment, and plan of care. Past Medical History Past Medical History: Cancer, Chest Pain / Angina, Hyperlipidemia, Hypertension, Myocardial Infarction (MO), Osteoarthritis (OA), Syncope, Thyroid Disorder Additional Past Medical History / Comment(s): [place] X2 ("in my 30's), SKIN CA, pain lower spine and legs, rectal bleeding , irregular heart beat, low sodium, see Dr. Fink's H&P. Last Myocardial Infarction Date:: approx 40 yrs ago History of Any Multi-Drug Resistant Organisms: None Reported Past Surgical History: Back Surgery, Heart Catheterization, Hernia Repair, Orthopedic Surgery, Pacemaker, Tonsillectomy Additional Past Surgical History / Comment(s): LAMINECTOMY & PLACEMENT OF NEUROSTIMULATOR, repositioned them later removed. Kashif catarats. Past Anesthesia/Blood Transfusion Reactions: Motion Sickness, Postoperative Nausea & Vomiting (PONV) Type of Cardiac Device: Permanent Pacemaker Device Placement Date:: October 2017 Past Psychological History: Anxiety, Depression Smoking Status: Current every day smoker Past Alcohol Use History: Daily Additional Past Alcohol Use History / Comment(s): LESS THAN 1ppd. pt states beryl t he usually drinks alcohol on the weekend 6-7 beers, states now smoking about 1/2 ppd. Past Drug Use History: Marijuana Additional Drug Use History / Comment(s): denies - Past Family History Mother Family Medical History: Cancer Additional Family Medical History / Comment(s): cva with residual left leg weakness April 2020 Father Family Medical History: Cancer Brother(s) Family Medical History: Cancer Medications and Allergies Home Medications Medication Instructions Recorded Confirmed Type oxyCODONE HCL/ACETAMINOPHEN 1 tab PO Q6H PRN 07/16/17 05/12/22 History [Percocet 10-325 mg] Dicyclomine [Bentyl] 10 mg PO DAILY 01/31/20 05/12/22 History Aspirin EC [Ecotrin Low Dose] 81 mg PO DAILY 06/17/21 05/09/22 History Levothyroxine Sodium [Synthroid] 50 mcg PO DAILY 06/17/21 05/12/22 History Metoprolol Succinate (ER) [Toprol 50 mg PO QAM 06/17/21 05/12/22 History XL] Naloxone HCl [Narcan] 4 mg NASAL ONCE PRN 06/17/21 05/09/22 History Nitroglycerin Sl Tabs [Nitrostat] 0.4 mg SUBLINGUAL Q5M PRN 06/17/21 05/09/22 History SUMAtriptan succinate [Imitrex] 50 mg PO BID PRN 07/08/21 05/09/22 History Apixaban [Eliquis] 5 mg PO QAM 03/20/22 05/09/22 History Chlorthalidone [Hygroton] 25 mg PO QAM 03/20/22 05/12/22 History Ergocalciferol (Vitamin D2) 1,250 mcg PO MO 03/20/22 05/12/22 History [Drisdol (50,000 Iu)] Esomeprazole Magnesium [NexIUM] 40 mg PO QAM 03/20/22 05/12/22 History Umeclidinium Brm/Vilanterol Tr 1 puff INHALATION RT-DAILY 03/20/22 05/12/22 History [Anoro Ellipta 62.5-25 Mcg INH] amLODIPine [Norvasc] 5 mg PO QAM 03/20/22 05/12/22 History Atorvastatin [Lipitor] 80 mg PO HS #90 tab 03/21/22 05/12/22 Rx Isosorbide Mononitrate ER [Imdur] 60 mg PO QAM 05/09/22 05/12/22 History Allergies Allergy/AdvReac Type Severity Reaction Status Date / Time cefazolin Allergy Rash/Hives Verified 05/09/22 10:08 cefazolin sodium [From [facility]] Allergy Rash/Hives Verified 05/09/22 10:08 morphine AdvReac Nausea & Verified 05/09/22 10:08 Vomiting Physical Exam Vitals: Vital Signs Temp Pulse Pulse Pulse Resp BP BP 05/14/22 08:00 98.4 F 73 18 149/83 05/14/22 04:00 98.5 F 77 18 157/84 05/13/22 23:58 97.9 F 78 16 142/67 05/13/22 20:00 98 F 72 16 164/83 05/13/22 16:00 98.2 F 67 11 L 139/77 05/13/22 13:00 71 19 122/75 05/13/22 12:00 77 19 121/79 05/13/22 11:33 50 L 19 Pulse Ox 05/14/22 08:00 96 05/14/22 04:00 95 05/13/22 23:58 96 05/13/22 20:00 96 05/13/22 16:00 94 L 05/13/22 13:00 93 L 05/13/22 12:00 94 L 05/13/22 11:33 93 L Intake and Output 05/13/22 05/14/22 05/14/22 22:59 06:59 14:59 Intake Total 50 100 Balance 50 100 Intake: IV 50 100 Sodium Chloride 0.9% 1, 50 100 000 ml @ 50 mls/hr IV . Q20H [facility] Rx#:[id number] Other: Voiding Method Urinal Urinal # Voids 1 Results 05/14/22 07:51 05/14/22 07:51 Cardiac Enzymes 05/14/22 05/14/22 Range/Units 07:51 07:51 AST 35 (17-59) U/L Troponin I 0.024 (0.000-0.034) ng/mL CBC 05/14/22 Range/Units 07:51 WBC 13.2 H (3.8-10.6) k/uL RBC 4.27 L (4.30-5.90) m/uL Hgb 15.2 (13.0-17.5) gm/dL Hct 43.4 (39.0-53.0) % Plt Count 244 (150-450) k/uL Comprehensive Metabolic Panel 05/14/22 Range/Units 07:51 Sodium 124 L (137-145) mmol/L Potassium 3.8 (3.5-5.1) mmol/L Chloride 92 L (98-107) mmol/L Carbon Dioxide 23 (22-30) mmol/L BUN 15 (9-20) mg/dL Creatinine 0.72 (0.66-1.25) mg/dL Glucose 95 (74-99) mg/dL Calcium 9.4 (8.4-10.2) mg/dL AST 35 (17-59) U/L ALT 16 (4-49) U/L Alkaline Phosphatase 56 (38-126) U/L Total Protein 6.9 (6.3-8.2) g/dL Albumin 4.2 (3.5-5.0) g/dL Current Medications Generic Name Dose Route Start Last Admin Trade Name Freq PRN Reason Stop Dose Admin Hydrocodone Bitart/Acetaminophen 1 each 05/12/22 11:44 Hydrocodone/Apap 5-325mg 1 Each Tab PO Q4HR PRN Moderate Pain (Scale 6 to 10) Amlodipine Besylate 5 mg 05/13/22 09:00 05/14/22 08:11 Amlodipine 5 Mg Tab PO 5 mg QAM [facility] Administration Apixaban 5 mg 05/13/22 21:00 05/14/22 08:11 Apixaban 5 Mg Tab PO 5 mg BID [facility] Administration Protocol Aspirin 81 mg 05/13/22 09:00 05/14/22 08:11 Aspirin 81 Mg PO 81 mg DAILY [facility] Administration Clopidogrel Bisulfate 75 mg 05/12/22 15:45 05/14/22 08:11 Clopidogrel 75 Mg Tab PO 75 mg DAILY [facility] Administration Dicyclomine HCl 10 mg 05/13/22 09:00 05/14/22 08:11 Dicyclomine 10 Mg Cap PO 10 mg DAILY [facility] Administration Ergocalciferol 1,250 mcg 05/12/22 15:00 05/12/22 17:28 Ergocalciferol 1,250 Mcg (50,000 Iu) Capsule PO 1,250 mcg MO [facility] Administration Formoterol Fumarate 20 mcg 05/13/22 08:00 05/14/22 08:01 Formoterol Fumarate 20 Mcg/2 Ml Nebu INHALATION Not Given RT-BID [facility] Hydromorphone HCl 0.5 mg 05/12/22 15:38 05/14/22 04:29 Hydromorphone 0.5 Mg/0.5 Ml Syringe IVP 0.5 mg Q3HR PRN Administration Pain Magnesium Sulfate/Dextrose 1 100 mls @ 100 mls/hr 05/14/22 09:30 05/14/22 10:39 gm/ IV Solution IVPB 05/14/22 11:29 100 mls/hr Q1H [facility] Administration Ipratropium [place] 0.5 mg 05/13/22 08:00 05/14/22 08:01 Ipratropium 0.5 Mg/2.5 Ml Nebu INHALATION Not Given RT-QID [facility] Isosorbide Mononitrate 60 mg 05/13/22 09:00 05/14/22 08:11 Isosorbide Mononitrate Er 60 Mg Tab.Er.24h PO 60 mg QAM [facility] Administration Levothyroxine Sodium 50 mcg 05/13/22 06:30 05/14/22 06:42 Levothyroxine 50 Mcg Tab PO 50 mcg DAILY@0630 [facility] Administration Lorazepam 1 mg 05/12/22 16:34 05/13/22 21:24 Lorazepam 2 Mg/Ml Inj IV 1 mg Q2HR PRN Administration Anxiety Methyl Salicylate 1 applic 05/12/22 16:23 05/12/22 16:46 Methyl Salicylate-Menthol Oint (3 Oz Tube) TOPICAL 1 applic Q6HR PRN Administration Muscle Pain Protocol Metoprolol Succinate 50 mg 05/13/22 09:00 05/14/22 08:11 Metoprolol Succinate (Er) 50 Mg Tab.Er.24h PO 50 mg QAM [facility] Administration Miscellaneous Information 1 each 05/13/22 08:27 Potassium Replacement Protocol 1 Each Misc MISCELLANE DAILY PRN Per Protocol Protocol Naloxone HCl 0.2 mg 05/12/22 11:44 Naloxone 0.4 Mg/Ml 1 Ml Vial IVP Q2M PRN Opioid Reversal Nicotine 1 patch 05/12/22 16:45 05/14/22 08:11 Nicotine 14mg/24hr Patch TRANSDERM 1 patch DAILY [facility] Administration Nitroglycerin 0.4 mg 05/12/22 11:46 05/13/22 21:15 Nitroglycerin Sl Tabs 0.4 Mg Tab SUBLINGUAL 0.4 mg Q5M PRN Administration CHEST PAIN Oxycodone/Acetaminophen 1 each 05/12/22 11:46 05/14/22 08:09 Oxycodone-Apap 10-325mg 1 Each Tab PO 1 each Q6H PRN Administration SEVERE Pain Pantoprazole Sodium 40 mg 05/13/22 07:30 05/14/22 06:42 Pantoprazole 40 Mg Tablet PO 40 mg AC-BRKFST [facility] Administration Pravastatin Sodium 40 mg 05/12/22 21:00 05/13/22 20:36 Pravastatin Sodium 40 Mg Tab PO 40 mg HS [facility] Administration Senna 8.6 mg 05/13/22 08:25 05/14/22 10:38 Sennosides 8.6 Mg Tab PO 8.6 mg DAILY PRN Administration Constipation Sumatriptan Succinate 50 mg 05/12/22 11:46 Sumatriptan Succinate 50 Mg Tab PO BID PRN Migraine Headache Temazepam 15 mg 05/12/22 22:53 05/12/22 23:12 Temazepam 15 Mg Cap PO 15 mg HS PRN Administration Insomnia Intake and Output 05/13/22 05/14/22 05/14/22 22:59 06:59 14:59 Intake Total 50 100 Balance 50 100 Intake: IV 50 100 Sodium Chloride 0.9% 1, 50 100 000 ml @ 50 mls/hr IV . Q20H [facility] Rx#:[id number] Other: Voiding Method Urinal Urinal # Voids 1 05/14/22 07:51 05/14/22 07:51
[2022-05-14] MEDS ORDERED: LORazepam 1 MG TAB PO PRN (11:53)
--- NOTE | 2022-05-14 15:32 | P.PN ---
Subjective Progress Note Date: 05/14/22 This is a 76-year-old male who was recently admitted under vascular surgery services for endovascular repair of an aortic aneurysm and having some back pain and also overnight reported some chest pain. Vascular surgery continues to follow and nephrology also following and cardiology has been consulted. Troponin was done and is negative. Patient is afebrile and denies shortness of breath. Patient has previous history of cardiac catheterization in 2020 of June with calcified right and left coronary systems with mild nonobstructive coronary artery disease and most recent echo revealed moderate LVH with an ejection fraction of 55-60% with a trace to mild mitral regurgitation and mild tricuspid regurgitation noted. Cardiology was consulted and appreciate input and recommendations. Review of systems: Constitutional: No reports of fatigue, fever, or chills Cardiovascular: reports of intermittent chest pain, no reports of palpitations Respiratory: No reports of shortness of breath or cough GI: No reports of nausea, no reports of of vomiting, no reports of diarrhea : No reports of dysuria or retention Neurovascular: reports of generalized weakness, reports back pain All medications have been reviewed Active Medications Hydrocodone Bitart/Acetaminophen (Hydrocodone/Apap 5-325mg 1 Each Tab) 1 each PO Q4HR PRN PRN Reason: Moderate Pain (Scale 6 to 10) Amlodipine Besylate (Amlodipine 5 Mg Tab) 5 mg PO QAM [facility] Last Admin: 05/14/22 08:11 Dose: 5 mg Apixaban (Apixaban 5 Mg Tab) 5 mg PO BID [facility]; Protocol Last Admin: 05/14/22 08:11 Dose: 5 mg Aspirin (Aspirin 81 Mg) 81 mg PO DAILY [facility] Last Admin: 05/14/22 08:11 Dose: 81 mg Clopidogrel Bisulfate (Clopidogrel 75 Mg Tab) 75 mg PO DAILY [facility] Last Admin: 05/14/22 08:11 Dose: 75 mg Dicyclomine HCl (Dicyclomine 10 Mg Cap) 10 mg PO DAILY [facility] Last Admin: 05/14/22 08:11 Dose: 10 mg Ergocalciferol (Ergocalciferol 1,250 Mcg (50,000 Iu) Capsule) 1,250 mcg PO MO [facility] Last Admin: 05/12/22 17:28 Dose: 1,250 mcg Formoterol Fumarate (Formoterol Fumarate 20 Mcg/2 Ml Nebu) 20 mcg INHALATION RT-BID [facility] Last Admin: 05/14/22 08:01 Dose: Not Given Hydromorphone HCl (Hydromorphone 0.5 Mg/0.5 Ml Syringe) 0.5 mg IVP Q3HR PRN PRN Reason: Pain Last Admin: 05/14/22 04:29 Dose: 0.5 mg Ipratropium [place] (Ipratropium 0.5 Mg/2.5 Ml Nebu) 0.5 mg INHALATION RT-QID [facility] Last Admin: 05/14/22 11:08 Dose: Not Given Isosorbide Mononitrate (Isosorbide Mononitrate Er 60 Mg Tab.Er.24h) 60 mg PO [facility] Last Admin: 05/14/22 08:11 Dose: 60 mg Levothyroxine Sodium (Levothyroxine 50 Mcg Tab) 50 mcg PO DAILY@629 [facility] Last Admin: 05/14/22 06:42 Dose: 50 mcg Lorazepam (Lorazepam 1 Mg Tab) 1 mg PO Q2HR PRN PRN Reason: Anxiety Methyl Salicylate (Methyl Salicylate-Menthol Oint (3 Oz Tube)) 1 applic TOPICAL Q6HR PRN; Protocol PRN Reason: Muscle Pain Last Admin: 05/12/22 16:46 Dose: 1 applic Metoprolol Succinate (Metoprolol Succinate (Er) 50 Mg Tab.Er.24h) 50 mg PO [facility] Last Admin: 05/14/22 08:11 Dose: 50 mg Miscellaneous Information (Potassium Replacement Protocol 1 Each Misc) 1 each MISCELLANE DAILY PRN; Protocol PRN Reason: Per Protocol Naloxone HCl (Naloxone 0.4 Mg/Ml 1 Ml Vial) 0.2 mg IVP Q2M PRN PRN Reason: Opioid Reversal Nicotine (Nicotine 14mg/24hr Patch) 1 patch TRANSDERM DAILY [facility] Last Admin: 05/14/22 08:11 Dose: 1 patch Nitroglycerin (Nitroglycerin Sl Tabs 0.4 Mg Tab) 0.4 mg SUBLINGUAL Q5M PRN PRN Reason: CHEST PAIN Last Admin: 05/13/22 21:15 Dose: 0.4 mg Oxycodone/Acetaminophen (Oxycodone-Apap 10-325mg 1 Each Tab) 1 each PO Q6H PRN PRN Reason: SEVERE Pain Last Admin: 05/14/22 08:09 Dose: 1 each Pantoprazole Sodium (Pantoprazole 40 Mg Tablet) 40 mg PO AC-BRKFST [facility] Last Admin: 05/14/22 06:42 Dose: 40 mg Pravastatin Sodium (Pravastatin Sodium 40 Mg Tab) 40 mg PO HS [facility] Last Admin: 05/13/22 20:36 Dose: 40 mg Senna (Sennosides 8.6 Mg Tab) 8.6 mg PO DAILY PRN PRN Reason: Constipation Last Admin: 05/14/22 10:38 Dose: 8.6 mg Sumatriptan Succinate (Sumatriptan Succinate 50 Mg Tab) 50 mg PO BID PRN PRN Reason: Migraine Headache Temazepam (Temazepam 15 Mg Cap) 15 mg PO HS PRN PRN Reason: Insomnia Last Admin: 05/12/22 23:12 Dose: 15 mg PHYSICAL EXAMINATION: GENERAL: The patient is alert and oriented x4, Well developed, well nourished. HEENT: Pupils are round and equally reacting to light. EOMI. no scleral icterus. No conjunctival pallor. Normocephalic, atraumatic. No pharyngeal erythema. No thyromegaly. CARDIOVASCULAR: S1 and S2 muffled PULMONARY: diminished breath sounds bilaterally with no wheezing or rhonchi noted. ABDOMEN: soft. Nontender on exam. non-distended, normoactive bowel sounds. No palpable organomegaly. MUSCULOSKELETAL: No joint swelling or deformity. EXTREMITIES: No cyanosis, clubbing, or pedal edema. Right hip surgical dressing is intact NEUROLOGICAL: Gross neurological examination did not reveal any focal deficits. Diffuse weakness SKIN: No rashes. Assessment: Status post endovascular repair of abdominal aortic aneurysm Chest pain, atypical, troponins negative Paroxysmal atrial fibrillation Hypertension Hyperlipidemia History of multiple medical problems mild hyponatremia history of EtOH GI prophylaxis DVT prophylaxis Full code Plan: Recommend to continue with current medications and manwith vascular surgery, nephrology, and cardiology following. patient had brief episodes of chest pain last night and troponins were drawn and negative and cardiology consulted recommending to continue with current medical management. Recommend continue telemetry monitoring. EKG was nonischemic and chest x-ray done was an increasing density over the left lower lobe that may reflect developing pneumonia and hyperinflation compatible with COPD. Will add some DuoNeb's and also incentive spirometer and encourage increased activity as tolerated. Recommend follow-up with repeat labs and replace electrolytes per protocol. Nephrology also following and sodium continues to be low at 124. Due to multiple complex medical issues, prognosis is guarded. The impression and plan of care has been dictated by Ludy Mccarthy, nurse practitioner as directed. MD Jaime I have performed a history and examination and MDM of this patient, discussed the same with the dictator, and agree with the dictator's assessment and plan a s written ,documented as a scribe. Based on total visit time, I have performed more than 50% of the visit. Any additional findings or plans will be noted. Objective - Vital Signs Vital signs: Vital Signs Temp 97.9 F 05/14/22 12:00 Pulse 64 05/14/22 12:00 Resp 14 05/14/22 12:00 BP 106/64 05/14/22 12:00 Pulse Ox 94 L 05/14/22 12:00 FiO2 Intake & Output 05/13/22 05/14/22 05/14/22 18:59 06:59 18:59 Intake Total 440 100 150 Output Total 350 Balance 90 100 150 Intake: IV 100 100 50 Sodium Chloride 0.9% 1, 100 100 50 000 ml @ 50 mls/hr IV . Q20H [facility] Rx#:[id number] Intake, IV Titration 100 100 Amount Magnesium Sulfate-D5w Pmx 100 1 gm In Dextrose/Water 1 100ml.bag @ 100 mls/hr IVPB Q1H [facility] Rx#: [id number] Sodium Chloride 0.9% 1, 100 000 ml @ 50 mls/hr IV . Q20H [facility] Rx#:[id number] Oral 240 Output: Urine 350 Other: Voiding Method Urinal Urinal # Voids 1 ABP, PAP, CO, CI - Last Documented Arterial Blood Pressure 158/52 - Labs CBC & Chem 7: 05/14/22 07:51 05/14/22 07:51 Labs: Abnormal Lab Results - Last 24 Hours (Table) 05/14/22 05/14/22 Range/Units 07:51 07:51 WBC 13.2 H (3.8-10.6) k/uL RBC 4.27 L (4.30-5.90) m/uL MCV 101.8 H (80.0-100.0) fL MCH 35.5 H (25.0-35.0) pg Neutrophils # 10.8 H (1.3-7.7) k/uL Sodium 124 L (137-145) mmol/L Chloride 92 L (98-107) mmol/L Magnesium 1.4 L (1.6-2.3) mg/dL TSH 6.740 H (0.465-4.680) mIU/L
[2022-05-14] MEDS: PRAVASTATIN SODIUM 40 MG TAB PO SCH (20:17)
[2022-05-15] MEDS: TEMAZEPAM 15 MG CAP PO PRN ×2 (00:11→23:35)
[2022-05-15] MEDS: oxyCODONE-APAP 10-325MG 1 EACH TAB PO PRN ×2 (04:19→20:30)
[2022-05-15] MEDS: LEVOTHYROXINE 50 MCG TAB PO SCH (06:27)
[2022-05-15] MEDS: PANTOPRAZOLE 40 MG TABLET PO SCH (06:27)
[2022-05-15 08:04] LABS: African American GFR (CKD) >90 (>60 ml/min/1.73 sqM); Anion Gap 9 mmol/L; Blood Urea Nitrogen 21 mg/dL (9-20); Carbon Dioxide 23 mmol/L (22-30); Chloride 95 mmol/L (98-107); Glucose 105 mg/dL (74-99); Magnesium 1.9 mg/dL (1.6-2.3); Non-African American GFR(CKD) 82 (>60 ml/min/1.73 sqM); Potassium 3.2 mmol/L (3.5-5.1); Sodium 127 mmol/L (137-145)
[2022-05-15 08:21] LABS: HCT 39.7 % (39.0-53.0); HGB 13.8 gm/dL (13.0-17.5); MCH 35.1 pg (25.0-35.0); MCHC 34.8 g/dL (31.0-37.0); Mean Platelet Volume 7.2; Platelet Count 260 k/uL (150-450); RBC 3.93 m/uL (4.30-5.90); RDW 11.6 % (11.5-15.5); WBC 17.1 k/uL (3.8-10.6)
[2022-05-15] MEDS: FORMOTEROL FUMARATE 20 MCG/2 ML NEBU INHALATION SCH ×2 (08:31→20:23)
[2022-05-15] MEDS: IPRATROPIUM 0.5 MG/2.5 ML NEBU INHALATION SCH ×4 (08:31→20:23)
[2022-05-15] MEDS ORDERED: PIPERACILLIN-TAZOBACTAM 3.375 GM in SODIUM CHLORIDE 0.9% 100 ML IVPB SCH (09:15)
--- NOTE | 2022-05-15 09:24 | P.PN ---
Subjective Progress Note Date: 05/15/22 Principal diagnosis: Abdominal aortic aneurysm This pleasant 76-year-old male who had a CT angiogram that showed a 5.5 cm infrarenal abdominal aortic aneurysm. His past medical history includes a current smoker history of alcohol abuse, history of CVA, coronary artery disease status post pacemaker, abdominal aortic aneurysm and peripheral neuropathy. He was scheduled for endovascular aortic repair. He is postop day #3 for endovascular aortic aneurysm repair with left renal artery stent. Yesterday he had complained of some diffuse chest pain across his entire chest, chronic pain to his back and legs. He was worried about constipation however he was given lactulose and a fleets enema and has had 2 bowel movements now. He denies any chest pain, shortness of breath, abdominal pain, fevers or chills. Cardiology was consulted and has cleared patient for any acute ischemic event. Nephrology is following closely and replacing sodium and magnesium. Objective - Vital Signs Vital signs: Vital Signs Temp 99 F 05/15/22 04:00 Pulse 80 05/15/22 08:46 Resp 16 05/15/22 04:00 BP 125/71 05/15/22 04:00 Pulse Ox 95 05/15/22 04:00 FiO2 Intake & Output 05/14/22 05/15/22 05/15/22 18:59 06:59 18:59 Intake Total 262 240 711 Output Total 350 Balance 262 -110 711 Intake: IV 50 Sodium Chloride 0.9% 1, 50 000 ml @ 50 mls/hr IV . Q20H [facility] Rx#:[id number] Intake, IV Titration 100 Amount Magnesium Sulfate-D5w Pmx 100 1 gm In Dextrose/Water 1 100ml.bag @ 100 mls/hr IVPB Q1H [facility] Rx#: [id number] Oral 112 240 711 Output: Urine 350 Other: Voiding Method Urinal Urinal # Voids 1 # Bowel Movements 1 ABP, PAP, CO, CI - Last Documented Arterial Blood Pressure 158/52 - Exam General appearance: The patient is alert, oriented, appears in no acute distress. HET: Head is normocephalic and atraumatic. Pupils are equal and reactive. Neck: Supple without lymphadenopathy. Trachea midline. Heart: S1 S2. Regular rate and rhythm. Lungs: Clear to auscultation bilaterally. Chest: Chest wall with normal expansion, equal air entry. Abdomen: Soft, nontender, positive bowel sounds, nondistended. Extremities: Normal skin color and turgor. Bilateral groin procedure sites without any bleeding, no hematoma. Small ecchymosis on left groin. No cyanosis, rash, ulceration, clubbing, or edema. Radial and pedal pulses are 2/4 bilaterally. Neurological: No focal deficits. Strength and sensation are grossly intact. - Labs CBC & Chem 7: 05/15/22 07:28 05/15/22 07:28 Labs: Abnormal Lab Results - Last 24 Hours (Table) 05/15/22 05/15/22 Range/Units 07:28 07:28 WBC 17.1 H (3.8-10.6) k/uL RBC 3.93 L (4.30-5.90) m/uL MCV 101.0 H (80.0-100.0) fL MCH 35.1 H (25.0-35.0) pg Sodium 127 L (137-145) mmol/L Potassium 3.2 L (3.5-5.1) mmol/L Chloride 95 L (98-107) mmol/L BUN 21 H (9-20) mg/dL Glucose 105 H (74-99) mg/dL Assessment and Plan Assessment: 1. Postop day 3 for endovascular aortic aneurysm repair with stenting 2. Abdominal aortic aneurysm measuring 5.[address] angiogram 3. Hyponatremia, acute on chronic 4. Hypokalemia 5. Leukocytosis 6. Chest pain, appears to be atypical possible musculoskeletal 7. Hypomagnesemia 8. Current every day smoker 9. History of alcohol abuse 10. History of coronary artery disease status post pacemaker Plan: 1. Encourage ambulation 2. Senokot PRN 3. Nephrology consulted for hyponatremia, appreciate their recommendations 4. Chest x-ray ordered and reviewed 5. Replace electrolytes 6. Encourage deep breathing, incentive spirometer and ambulation 7. Cardiology consulted, their recommendations appreciated 8. Continue current medications, discontinue aspirin. Plavix prescription sent for discharge. 9. Recommend close follow-up with primary care physician to follow labs, electrolytes Patient is cleared from vascular surgery for discharge once otherwise medically stable. The impression and plan of care has been dictated as directed. Dr. Vergara I performed a history and examination of this patient, discussed the same with the dictator. I agree with the dictator's note ,documented as a scribe. Any additional findings or plans will be noted.
[2022-05-15] MEDS: METOPROLOL SUCCINATE (ER) 50 MG TAB.ER.24H PO SCH (09:38)
[2022-05-15] MEDS: POTASSIUM CHLORIDE ER 20 MEQ TAB.ER PO SCH ×2 (09:38→12:24)
[2022-05-15] MEDS: DICYCLOMINE 10 MG CAP PO SCH (09:38)
[2022-05-15] MEDS: CLOPIDOGREL 75 MG TAB PO SCH (09:38)
[2022-05-15] MEDS: NICOTINE 14MG/24HR PATCH TRANSDERM SCH (09:38)
[2022-05-15] MEDS: amLODIPine 5 MG TAB PO SCH (09:38)
[2022-05-15] MEDS: ISOSORBIDE MONONITRATE ER 60 MG TAB.ER.24H PO SCH (09:38)
[2022-05-15] MEDS: APIXABAN 5 MG TAB PO SCH ×2 (09:38→20:30)
--- NOTE | 2022-05-15 09:48 | P.PN ---
Subjective Patient is seen in follow-up for hyponatremia. Sodium level 127 today. Oral intake is poor. No vomiting or diarrhea. No significant pain. Vital signs are stable. General: Awake. No acute distress. HEENT: Head exam is unremarkable. LUNGS: Breath sounds decreased. HEART: Rate and Rhythm are regular. ABDOMEN: Soft, no distention. EXTREMITITES: No edema. Objective - Vital Signs Vital signs: Vital Signs Temp 99 F 05/15/22 04:00 Pulse 80 05/15/22 08:46 Resp 16 05/15/22 04:00 BP 125/71 05/15/22 04:00 Pulse Ox 95 05/15/22 04:00 FiO2 Intake & Output 05/14/22 05/15/22 05/15/22 18:59 06:59 18:59 Intake Total 262 240 711 Output Total 350 Balance 262 -110 711 Intake: IV 50 Sodium Chloride 0.9% 1, 50 000 ml @ 50 mls/hr IV . Q20H [facility] Rx#:[id number] Intake, IV Titration 100 Amount Magnesium Sulfate-D5w Pmx 100 1 gm In Dextrose/Water 1 100ml.bag @ 100 mls/hr IVPB Q1H [facility] Rx#: [id number] Oral 112 240 711 Output: Urine 350 Other: Voiding Method Urinal Urinal # Voids 1 # Bowel Movements 1 ABP, PAP, CO, CI - Last Documented Arterial Blood Pressure 158/52 - Labs CBC & Chem 7: 05/15/22 07:28 05/15/22 07:28 Labs: Abnormal Lab Results - Last 24 Hours (Table) 05/15/22 05/15/22 Range/Units 07:28 07:28 WBC 17.1 H (3.8-10.6) k/uL RBC 3.93 L (4.30-5.90) m/uL MCV 101.0 H (80.0-100.0) fL MCH 35.1 H (25.0-35.0) pg Sodium 127 L (137-145) mmol/L Potassium 3.2 L (3.5-5.1) mmol/L Chloride 95 L (98-107) mmol/L BUN 21 H (9-20) mg/dL Glucose 105 H (74-99) mg/dL Assessment and Plan Plan: Assessment: 1. Hyponatremia. Component of hypovolemia and poor solute intake. Was also on thiazide diuretic. Sodium level 127 today. Urine sodium 101 and urine osmolality 491. TSH 6.74. 2. Status post endovascular aortic aneurysm repair for stenting 05/12/2022. 3. Benign hypertension. Controlled. 4. History of coronary artery disease with dilated cardiomyopathy status post pacemaker placement. 5. Alcohol abuse. 6. Hypomagnesemia from poor intake, diuretic and chronic alcohol abuse. Replace. Better. 7. Hypokalemia from poor intake. Plan: Remains off IV fluids. Stopped chlorthalidone - last dose given on 05/13/2022. Encourage oral intake. 1200 mL fluid restriction. Potassium being replaced. Add sodium chloride tab once daily. Repeat samsca today as well. Repeat BMP and magnesium level 2-3 days postdischarge. Follow up outpatient in 1 week.
[2022-05-15] MEDS ORDERED: TOLVAPTAN 15 MG 1/2 TABLET PO ONE (10:00)
[2022-05-15] MEDS: HYDROcodone/APAP 5-325MG 1 EACH TAB PO PRN (10:17)
[2022-05-15] MEDS: SODIUM CHLORIDE TAB 1 GM TAB PO SCH (10:18)
--- NOTE | 2022-05-15 12:47 | P.PN ---
Subjective Progress Note Date: 05/15/22 HISTORY OF PRESENT ILLNESS: This is a 76-year-old male with a past medical history significant for coronary artery disease, permanent pacemaker, abdominal aortic aneurysm, and paroxysmal atrial fibrillation. Patient follows in the office with Dr. Sullivan. We have been asked to see the patient in consultation for chest pain. Patient is status post percutaneous endovascular aortic repair with alto device and left renal artery chimney stenting with VBX stent. Patient examined at the bedside. Patient reports he has had some chest pain overnight and this morning. He reports the p ain goes across his entire chest. The pain is not worse with deep inspiration. He does report pain with chest wall palpation. Troponin was obtained this morning which was negative. EKG obtained this morning reviewed which does not reveal any evidence of ischemia. It is noted that the patient had a cardiac catheterization in June 2021 revealing calcified right and left coronary systems with mild non-obstructive coronary artery disease. Echocardiogram completed in 2019 revealed moderate LVH with ejection fraction 55-60% with trace to mild MR and mild TR. 05/15/2022 Patient examined this morning at the bedside. Patient denies chest pain or pressure. He denies shortness of breath. Patient's vital signs have been stable. PHYSICAL EXAM: VITAL SIGNS: Reviewed. GENERAL: Well-developed in no acute distress. HEENT: Head is normocephalic. Pupils are equal, round. Sclerae anicteric. Mucous membranes of the mouth are moist. Neck supple. No JVD or thyromegaly LUNGS: Respirations even and unlabored. Lungs essentially clear to auscultation bilaterally. HEART: Regular rate and rhythm. S1 and S2 heard. ABDOMEN: Soft. Nondistended. Nontender. EXTREMITIES: Normal range of motion. No clubbing or cyanosis. Peripheral pulses intact. No lower extremity edema NEUROLOGIC: Awake and alert. Oriented x 3. ASSESSMENT: Abdominal aortic aneurysm, status post endovascular repair with stenting Chest pain, atypical, troponin negative and EKG nonischemic Mild and objective coronary artery disease per cardiac catheterization in 2020 History of permanent pacemaker insertion Paroxysmal atrial fibrillation Hypertension Hyperlipidemia PLAN: Continue current cardiac medications Patient is stable from a cardiac standpoint We will sign off. Please reconsult if needed. Nurse practitioner note has been reviewed by physician. Signing provider agrees with the documented findings, assessment, and plan of care. Objective - Vital Signs Vital signs: Vital Signs Temp 98.2 F 05/15/22 08:00 Pulse 80 05/15/22 08:46 Resp 16 05/15/22 08:00 BP 108/64 05/15/22 08:00 Pulse Ox 95 05/15/22 08:00 FiO2 Intake & Output 05/14/22 05/15/22 05/15/22 18:59 06:59 18:59 Intake Total 262 240 711 Output Total 350 Balance 262 -110 711 Intake: IV 50 Sodium Chloride 0.9% 1, 50 000 ml @ 50 mls/hr IV . Q20H [facility] Rx#:[id number] Intake, IV Titration 100 Amount Magnesium Sulfate-D5w Pmx 100 1 gm In Dextrose/Water 1 100ml.bag @ 100 mls/hr IVPB Q1H [facility] Rx#: [id number] Oral 112 240 711 Output: Urine 350 Other: Voiding Method Urinal Urinal Urinal # Voids 1 # Bowel Movements 1 ABP, PAP, CO, CI - Last Documented Arterial Blood Pressure 158/52 - Labs CBC & Chem 7: 05/15/22 07:28 05/15/22 07:28 Labs: Abnormal Lab Results - Last 24 Hours (Table) 05/15/22 05/15/22 Range/Units 07:28 07:28 WBC 17.1 H (3.8-10.6) k/uL RBC 3.93 L (4.30-5.90) m/uL MCV 101.0 H (80.0-100.0) fL MCH 35.1 H (25.0-35.0) pg Sodium 127 L (137-145) mmol/L Potassium 3.2 L (3.5-5.1) mmol/L Chloride 95 L (98-107) mmol/L BUN 21 H (9-20) mg/dL Glucose 105 H (74-99) mg/dL
--- NOTE | 2022-05-15 13:51 | XR ---
EXAMINATION TYPE: XR chest 1V portable DATE OF EXAM: 05/15/2022 COMPARISON: 05/14/2022 INDICATION: Short of breath TECHNIQUE: Single frontal view of the chest is obtained. FINDINGS: The heart size is normal. The pulmonary vasculature is normal. The lungs are clear. Pacemaker overlies left chest IMPRESSION: 1. No acute pulmonary process.
[2022-05-15] MEDS: METHYL SALICYLATE-MENTHOL OINT (3 OZ TUBE) TOPICAL PRN (20:19)
[2022-05-15] MEDS: PRAVASTATIN SODIUM 40 MG TAB PO SCH (20:30)
[2022-05-15] MEDS: SENNOSIDES 8.6 MG TAB PO PRN (20:30)
[2022-05-15 20:58] VITALS: RESP 16
--- NOTE | 2022-05-15 22:58 | P.PN ---
Subjective Progress Note Date: 05/15/22 This is a 76-year-old male who was recently admitted under vascular surgery services for endovascular repair of an aortic aneurysm and having some back pain and also overnight reported some chest pain. Vascular surgery continues to follow and nephrology also following and cardiology has been consulted. Troponin was done and is negative. Patient is afebrile and denies shortness of breath. Patient has previous history of cardiac catheterization in 2020 of June with calcified right and left coronary systems with mild nonobstructive coronary artery disease and most recent echo revealed moderate LVH with an ejection fraction of 55-60% with a trace to mild mitral regurgitation and mild tricuspid regurgitation noted. Cardiology was consulted and appreciate input and recommendations. 05/15/2022 Patient is seen today in follow up and denies further chest pain. Patient has been seen and evaluated by vascular surgery and will follow up outpatient. Cardiology also evaluated the patient and recommend continuing current cardiac medications. Patient was having low grade temp and WBC trending up and is 17 today. Will obtain chest xray, urinalysis, and covid testing as patient is also reporting cough. Patient denies shortness of breath. Encouraged oral intake and increased activity as tolerated. Review of systems: Constitutional: No reports of fatigue, fever, or chills Cardiovascular: no reports of intermittent chest pain, no reports of palpitations Respiratory: No reports of shortness of breath, reports cough GI: No reports of nausea, no reports of of vomiting, no reports of diarrhea : No reports of dysuria or retention Neurovascular: reports of generalized weakness, reports back pain All medications have been reviewed Active Medications Hydrocodone Bitart/Acetaminophen (Hydrocodone/Apap 5-325mg 1 Each Tab) 1 each PO Q4HR PRN PRN Reason: Moderate Pain (Scale 6 to 10) Last Admin: 05/15/22 10:17 Dose: 1 each Amlodipine Besylate (Amlodipine 5 Mg Tab) 5 mg PO QAM [facility] Last Admin: 05/15/22 09:38 Dose: Not Given Apixaban (Apixaban 5 Mg Tab) 5 mg PO BID [facility]; Protocol Last Admin: 05/15/22 20:30 Dose: 5 mg Clopidogrel Bisulfate (Clopidogrel 75 Mg Tab) 75 mg PO DAILY [facility] Last Admin: 05/15/22 09:38 Dose: 75 mg Dicyclomine HCl (Dicyclomine 10 Mg Cap) 10 mg PO DAILY [facility] Last Admin: 05/15/22 09:38 Dose: 10 mg Ergocalciferol (Ergocalciferol 1,250 Mcg (50,000 Iu) Capsule) 1,250 mcg PO MO [facility] Last Admin: 05/12/22 17:28 Dose: 1,250 mcg Formoterol Fumarate (Formoterol Fumarate 20 Mcg/2 Ml Nebu) 20 mcg INHALATION RT-BID [facility] Last Admin: 05/15/22 20:23 Dose: 20 mcg Hydromorphone HCl (Hydromorphone 0.5 Mg/0.5 Ml Syringe) 0.5 mg IVP Q3HR PRN PRN Reason: Pain Last Admin: 05/14/22 04:29 Dose: 0.5 mg Ceftriaxone Sodium 1 gm/ (Sodium Chloride) 50 mls @ 100 mls/hr IVPB Q24HR [facility]; Protocol Last Admin: 05/15/22 10:18 Dose: 100 mls/hr Ipratropium [place] (Ipratropium 0.5 Mg/2.5 Ml Nebu) 0.5 mg INHALATION RT-QID [facility] Last Admin: 05/15/22 20:23 Dose: 0.5 mg Isosorbide Mononitrate (Isosorbide Mononitrate Er 60 Mg Tab.Er.24h) [facility] [place] Last Admin: 05/15/22 09:38 Dose: 60 mg Levothyroxine Sodium (Levothyroxine 50 Mcg Tab) 50 mcg PO DAILY@0630 [facility] Last Admin: 05/15/22 06:27 Dose: 50 mcg Lorazepam (Lorazepam 1 Mg Tab) 1 mg PO Q2HR PRN PRN Reason: Anxiety Methyl Salicylate (Methyl Salicylate-Menthol Oint (3 Oz Tube)) 1 applic TOPICAL Q6HR PRN; Protocol PRN Reason: Muscle Pain Last Admin: 05/15/22 20:19 Dose: 1 applic Metoprolol Succinate (Metoprolol Succinate (Er) 50 Mg Tab.Er.24h) 50 mg PO QAM [facility] Last Admin: 05/15/22 09:38 Dose: 50 mg Miscellaneous Information (Potassium Replacement Protocol 1 Each Misc) 1 each MISCELLANE DAILY PRN; Protocol PRN Reason: Per Protocol Naloxone HCl (Naloxone 0.4 Mg/Ml 1 Ml Vial) 0.2 mg IVP Q2M PRN PRN Reason: Opioid Reversal Nicotine (Nicotine 14mg/24hr Patch) 1 patch TRANSDERM DAILY [facility] Last Admin: 05/15/22 09:38 Dose: 1 patch Nitroglycerin (Nitroglycerin Sl Tabs 0.4 Mg Tab) 0.4 mg SUBLINGUAL Q5M PRN PRN Reason: CHEST PAIN Last Admin: 05/13/22 21:15 Dose: 0.4 mg Oxycodone/Acetaminophen (Oxycodone-Apap 10-325mg 1 Each Tab) 1 each PO Q6H PRN PRN Reason: SEVERE Pain Last Admin: 05/15/22 20:30 Dose: 1 each Pantoprazole Sodium (Pantoprazole 40 Mg Tablet) 40 mg PO AC-BRKFST [facility] Last Admin: 05/15/22 06:27 Dose: 40 mg Pravastatin Sodium (Pravastatin Sodium 40 Mg Tab) 40 mg PO HS [facility] Last Admin: 05/15/22 20:30 Dose: 40 mg Senna (Sennosides 8.6 Mg Tab) 8.6 mg PO DAILY PRN PRN Reason: Constipation Last Admin: 05/15/22 20:30 Dose: 8.6 mg Sodium Chloride (Sodium Chloride Tab 1 Gm Tab) 1 gm PO DAILY [facility] Last Admin: 05/15/22 10:18 Dose: 1 gm Sumatriptan Succinate (Sumatriptan Succinate 50 Mg Tab) 50 mg PO BID PRN PRN Reason: Migraine Headache Temazepam (Temazepam 15 Mg Cap) 15 mg PO HS PRN PRN Reason: Insomnia Last Admin: 05/15/22 00:11 Dose: 15 mg PHYSICAL EXAMINATION: GENERAL: The patient is alert and oriented x4, Well developed, well nourished. HEENT: Pupils are round and equally reacting to light. EOMI. no scleral icterus. No conjunctival pallor. Normocephalic, atraumatic. No pharyngeal erythema. No thyromegaly. CARDIOVASCULAR: S1 and S2 muffled PULMONARY: diminished breath sounds bilaterally with no wheezing or rhonchi noted. ABDOMEN: soft. Nontender on exam. non-distended, normoactive bowel sounds. No palpable organomegaly. MUSCULOSKELETAL: No joint swelling or deformity. EXTREMITIES: No cyanosis, clubbing, or pedal edema. NEUROLOGICAL: Gross neurological examination did not reveal any focal deficits. SKIN: No rashes. Assessment: Status post endovascular repair of abdominal aortic aneurysm Chest pain, atypical, troponins negative Paroxysmal atrial fibrillation leukocytosis Hypertension Hyperlipidemia History of multiple medical problems mild hyponatremia history of EtOH GI prophylaxis DVT prophylaxis Full code Plan: Recommend to continue with current medications with vascular surgery, nephrology, and cardiology following. patient denying further episodes of chest pain. Patient reports cough and had an elevation in WBC and will obtain UA, CXR, covid, and initiate IV ceftriaxone. Recommend continue telemetry monitoring. e ncourage increased activity as tolerated and continued use of IS at least 10 times per hour while awake. Recommend follow-up with repeat labs and replace electrolytes per protocol. Nephrology also following and sodium slightly improved to 127. Due to multiple complex medical issues, prognosis is guarded. The impression and plan of care has been dictated by Ludy Mccarthy, nurse practitioner as directed. MD Jaime I have performed a history and examination and MDM of this patient, discussed the same with the dictator, and agree with the dictator's assessment and plan as written ,documented as a scribe. Based on total visit time, I have performed more than 50% of the visit. Any additional findings or plans will be noted. Objective - Vital Signs Vital signs: Vital Signs Temp 99 F 05/15/22 04:00 Pulse 86 05/15/22 04:00 Resp 16 05/15/22 04:00 BP 125/71 05/15/22 04:00 Pulse Ox 95 05/15/22 04:00 FiO2 Intake & Output 05/14/22 05/15/22 05/15/22 18:59 06:59 18:59 Intake Total 262 240 Output Total 350 Balance 262 -110 Intake: IV 50 Sodium Chloride 0.9% 1, 50 000 ml @ 50 mls/hr IV . Q20H [facility] Rx#:[id number] Intake, IV Titration 100 Amount Magnesium Sulfate-D5w Pmx 100 1 gm In Dextrose/Water 1 100ml.bag @ 100 mls/hr IVPB Q1H [facility] Rx#: [id number] Oral 112 240 Output: Urine 350 Other: Voiding Method Urinal Urinal # Voids 1 # Bowel Movements 1 ABP, PAP, CO, CI - Last Documented Arterial Blood Pressure 158/52 - Labs CBC & Chem 7: 05/15/22 07:28 05/15/22 07:28 Labs: Abnormal Lab Results - Last 24 Hours (Table) 05/14/22 05/15/22 05/15/22 Range/Units 07:51 07:28 07:28 WBC 17.1 H (3.8-10.6) k/uL RBC 3.93 L (4.30-5.90) m/uL MCV 101.0 H (80.0-100.0) fL MCH 35.1 H (25.0-35.0) pg Sodium 124 L 127 L (137-145) mmol/L Potassium 3.2 L (3.5-5.1) mmol/L Chloride 92 L 95 L (98-107) mmol/L BUN 21 H (9-20) mg/dL Glucose 105 H (74-99) mg/dL Magnesium 1.4 L (1.6-2.3) mg/dL TSH 6.740 H (0.465-4.680) mIU/L
[2022-05-16 03:38] LABS: Appearance,Urine Clear (Clear); Bacteria,Urine Rare /hpf; Bilirubin,Urine Negative (Negative); Blood,Urine Negative (Negative); Color,Urine Yellow; Glucose,Urine (UA) Negative (Negative); Hyaline Casts,Urine 1 /lpf (0-2); Ketones,Urine 1+ (Negative); Leukocyte Esterase,Urine Large (Negative); Mucus,Urine Rare /hpf; Nitrite,Urine Negative (Negative); Protein,Urine 1+ (Negative); RBC,Urine 2 /hpf (0-5); Urobilinogen,Urine <2.0 mg/dL (<2.0); WBC,Urine 58 /hpf (0-5)
[2022-05-16] MEDS: LEVOTHYROXINE 50 MCG TAB PO SCH (06:22)
[2022-05-16] MEDS: PANTOPRAZOLE 40 MG TABLET PO SCH (06:22)
[2022-05-16] MEDS: IPRATROPIUM 0.5 MG/2.5 ML NEBU INHALATION SCH ×3 (07:28→15:20)
[2022-05-16] MEDS: FORMOTEROL FUMARATE 20 MCG/2 ML NEBU INHALATION SCH (07:28)
[2022-05-16] MEDS: amLODIPine 5 MG TAB PO SCH (08:30)
[2022-05-16] MEDS: ISOSORBIDE MONONITRATE ER 60 MG TAB.ER.24H PO SCH (08:30)
[2022-05-16] MEDS: NICOTINE 14MG/24HR PATCH TRANSDERM SCH (08:30)
[2022-05-16] MEDS: DICYCLOMINE 10 MG CAP PO SCH (08:30)
[2022-05-16] MEDS: METOPROLOL SUCCINATE (ER) 50 MG TAB.ER.24H PO SCH (08:30)
[2022-05-16] MEDS: APIXABAN 5 MG TAB PO SCH (08:30)
[2022-05-16] MEDS: CLOPIDOGREL 75 MG TAB PO SCH (08:30)
[2022-05-16] MEDS: SODIUM CHLORIDE TAB 1 GM TAB PO SCH (08:30)
--- NOTE | 2022-05-16 08:38 | P.PN ---
Subjective Patient is seen in follow-up for hyponatremia. Sodium level 127 yesterday. Oral intake is a little better. No vomiting or diarrhea. No significant pain. Hemodynamically stable. On room air. Vital signs are stable. General: Awake. No acute distress. HEENT: Head exam is unremarkable. LUNGS: Breath sounds decreased. HEART: Rate and Rhythm are regular. ABDOMEN: Soft, no distention. EXTREMITITES: No edema. Objective - Vital Signs Vital signs: Vital Signs Temp 97.9 F 05/16/22 03:30 Pulse 67 05/16/22 03:30 Resp 16 05/16/22 03:30 BP 119/66 05/16/22 03:30 Pulse Ox 96 05/16/22 03:30 FiO2 Intake & Output 05/15/22 05/16/22 05/16/22 18:59 06:59 18:59 Intake Total 829 Output Total 275 Balance 829 -275 Intake: Oral 829 Output: Urine 275 Other: Voiding Method Urinal Urinal # Voids 1 ABP, PAP, CO, CI - Last Documented Arterial Blood Pressure 158/52 - Labs CBC & Chem 7: 05/15/22 07:28 05/15/22 07:28 Labs: Abnormal Lab Results - Last 24 Hours (Table) 05/16/22 Range/Units 03:15 Urine Protein 1+ H (Negative) Urine Ketones 1+ H (Negative) Ur Leukocyte Esterase Large H (Negative) Urine WBC 58 H (0-5) /hpf Urine WBC Clumps Rare H (None) /hpf Urine Bacteria Rare H (None) /hpf Urine Mucus Rare H (None) /hpf Assessment and Plan Plan: Assessment: 1. Hyponatremia. Component of hypovolemia and poor solute intake. Was also on thiazide diuretic. Sodium level 127 yesterday. Urine sodium 101 and urine osmolality 491. TSH 6.74. 2. Status post endovascular aortic aneurysm repair for stenting 05/12/2022. 3. Benign hypertension. Controlled. 4. History of coronary artery disease with dilated cardiomyopathy status post pacemaker placement. 5. Alcohol abuse. 6. Hypomagnesemia from poor intake, diuretic and chronic alcohol abuse. Replaced. Better. 7. Hypokalemia from poor intake. Replaced. Plan: Remains off IV fluids. Stopped chlorthalidone - last dose given on 05/13/2022. Encourage oral intake. 1200 mL fluid restriction. Maintain sodium chloride tab once daily. Status post 2 doses of Samsca this admission. Repeat BMP and magnesium level 2-3 days postdischarge. Follow up outpatient in 1 week.
[2022-05-16] MEDS ORDERED: SENNOSIDES 8.6 MG TAB PO SCH (10:15)
[2022-05-16 10:24] LABS: Basophils % (A) 0 %; Eosinophils # (A) 0.1 k/uL (0-0.7); Eosinophils % (A) 0 %; HCT 39.3 % (39.0-53.0); HGB 13.3 gm/dL (13.0-17.5); Lymphocytes # (A) 0.7 k/uL (1.0-4.8); Lymphocytes % (A) 5 %; MCH 34.7 pg (25.0-35.0); MCHC 33.8 g/dL (31.0-37.0); MCV 102.6 fL (80.0-100.0); Macrocytosis Slight; Mean Platelet Volume 7.4; Monocytes # (A) 0.8 k/uL (0-1.0); Monocytes % (A) 5 %; Neutrophils # (A) 12.4 k/uL (1.3-7.7); Neutrophils % (A) 88 %; Platelet Count 294 k/uL (150-450); RBC 3.83 m/uL (4.30-5.90); RDW 12.2 % (11.5-15.5); WBC 14.2 k/uL (3.8-10.6)
[2022-05-16 10:34] LABS: Calcium 9.1 mg/dL (8.4-10.2); Potassium 3.6 mmol/L (3.5-5.1)
--- NOTE | 2022-05-16 11:18 | P.PN ---
Subjective Progress Note Date: 05/16/22 Principal diagnosis: Abdominal aortic aneurysm This pleasant 76-year-old male who had a CT angiogram that showed a 5.5 cm infrarenal abdominal aortic aneurysm. His past medical history includes a current smoker history of alcohol abuse, history of CVA, coronary artery disease status post pacemaker, abdominal aortic aneurysm and peripheral neuropathy. He was scheduled for endovascular aortic repair. He is postop day #4 for endovascular aortic aneurysm repair with left renal artery stent. Overall he is doing well. He was hyponatremic on admission. Nephrology was consulted and following closely. They believe likely related to poor oral intake and history of alcohol abuse. Patient is denying any chest pain, shortness of breath, abdominal pain, nausea or vomiting. He is been up and ambulating. He had a repeat chest x-ray yesterday with no acute process. He's been afebrile. He has incentive spirometer at the bedside and currently using. Electrolytes have been replaced. Today's labs WBC 14.2 hemoglobin 13.3 sodium 131 potassium 3.6P when 30 creatinine 0.9 magnesium 1.9 Objective - Vital Signs Vital signs: Vital Signs Temp 98.4 F 05/16/22 08:00 Pulse 72 05/16/22 08:00 Resp 16 05/16/22 08:00 BP 108/56 05/16/22 08:00 Pulse Ox 100 05/16/22 08:00 FiO2 Intake & Output 05/15/22 05/16/22 05/16/22 18:59 06:59 18:59 Intake Total 829 240 Output Total 275 Balance 829 -275 240 Intake: Oral 829 240 Output: Urine 275 Other: Voiding Method Urinal Urinal Urinal # Voids 1 ABP, PAP, CO, CI - Last Documented Arterial Blood Pressure 158/52 - Exam General appearance: The patient is alert, oriented, appears in no acute distress. HET: Head is normocephalic and atraumatic. Pupils are equal and reactive. Neck: Supple without lymphadenopathy. Trachea midline. Heart: S1 S2. Regular rate and rhythm. Lungs: Clear to auscultation bilaterally. Chest: Chest wall with normal expansion, equal air entry. Abdomen: Soft, nontender, positive bowel sounds, nondistended. Extremities: Normal skin color and turgor. Bilateral groin procedure sites without any bleeding, no hematoma. Small ecchymosis on left groin. No cyanosis, rash, ulceration, clubbing, or edema. Radial and pedal pulses are 2/4 bilaterally. Neurological: No focal deficits. Strength and sensation are grossly intact. - Labs CBC & Chem 7: 05/16/22 09:14 05/16/22 09:14 Labs: Abnormal Lab Results - Last 24 Hours (Table) 05/16/22 05/16/22 05/16/22 Range/Units 03:15 09:14 09:14 WBC 14.2 H (3.8-10.6) k/uL RBC 3.83 L (4.30-5.90) m/uL MCV 102.6 H (80.0-100.0) fL Neutrophils # 12.4 H (1.3-7.7) k/uL Lymphocytes # 0.7 L (1.0-4.8) k/uL Sodium 131 L (137-145) mmol/L Chloride 97 L (98-107) mmol/L BUN 30 H (9-20) mg/dL Glucose 112 H (74-99) mg/dL Urine Protein 1+ H (Negative) Urine Ketones 1+ H (Negative) Ur Leukocyte Esterase Large H (Negative) Urine WBC 58 H (0-5) /hpf Urine WBC Clumps Rare H (None) /hpf Urine Bacteria Rare H (None) /hpf Urine Mucus Rare H (None) /hpf Assessment and Plan Assessment: 1. Postop day #4 for endovascular aortic aneurysm repair with stenting 2. Abdominal aortic aneurysm measuring 5.[address] angiogram 3. Hyponatremia, acute on chronic 4. Hypokalemia, resolved 5. Leukocytosis 6. Chest pain, appears to be atypical possible musculoskeletal 7. Hypomagnesemia, resolved 8. Current every day smoker 9. History of alcohol abuse 10. History of coronary artery disease status post pacemaker Plan: 1. Encourage ambulation 2. Senokot daily 3. Nephrology consulted for hyponatremia, appreciate their recommendations 4. Replace electrolytes per protocol 5. Encourage deep breathing, incentive spirometer and ambulation 6. Continue current medications, discontinue aspirin. Plavix prescription sent for discharge. 7. Follow-up with nephrology as recommended Patient is cleared from vascular surgery for discharge. Follow-up with Dr. Anaya in 1-2 weeks The impression and plan of care has been dictated as directed. Dr. Saunders I performed a history and examination of this patient, discussed the same with the dictator. I agree with the dictator's note ,documented as a scribe. Any additional findings or plans will be noted.
[2022-05-16] MEDS ORDERED: POTASSIUM CHLORIDE ER 20 MEQ TAB.ER PO SCH (13:00)
[2022-05-16] MEDS: HYDROcodone/APAP 5-325MG 1 EACH TAB PO PRN (14:37)
[2022-05-16 15:57] VITALS: BP 115/61; PULSE 72; TEMP 97.7
== END 2022-05-16 17:26 | disposition home or self-care (01) | DRG 269 ==
LOC: 2ORMAIN 05:59 → 2SICU 13:52 → 3SCARD 05-13 21:44
PROVIDERS: ADMIT Hospitalist; ATTEND Hospitalist
PROC: B4171ZZ Fluoroscopy of Left Renal Artery using Low Osmolar Contrast (ICD-10-PCS; principal; 2022-05-12 07:30)
PROC: 04L Lower Arteries, Occlusion (ICD-10-PCS; principal; 2022-05-12 07:30)
PROC: 04WY3DZ Revision of Intraluminal Device in Lower Artery, Percutaneous Approach (ICD-10-PCS; principal; 2022-05-12 07:30)
PROC: 04HA3DZ Insertion of Intraluminal Device into Left Renal Artery, Percutaneous Approach (ICD-10-PCS; principal; 2022-05-12 07:30)
PROC: 04V03DZ Restriction of Abdominal Aorta with Intraluminal Device, Percutaneous Approach (ICD-10-PCS; principal; 2022-05-12 07:30)
DX: I71.4 Abdominal aortic aneurysm, without rupture (principal); E87.1 Hypo-osmolality and hyponatremia; I42.0 Dilated cardiomyopathy; T82.310A Breakdown (mechanical) of aortic (bifurcation) graft (replacement), initial encounter; I49.5 Sick sinus syndrome; I48.0 Paroxysmal atrial fibrillation; D72.829 Elevated white blood cell count, unspecified; E86.1 Hypovolemia; Z20.822 Contact with and (suspected) exposure to COVID-19; E87.6 Hypokalemia; E78.2 Mixed hyperlipidemia; E83.42 Hypomagnesemia; R07.89 Other chest pain; F10.10 Alcohol abuse, uncomplicated; G62.9 Polyneuropathy, unspecified; G89.29 Other chronic pain; M54.9 Dorsalgia, unspecified; I10 Essential (primary) hypertension; I35.1 Nonrheumatic aortic (valve) insufficiency; I25.10 Atherosclerotic heart disease of native coronary artery without angina pectoris; K59.00 Constipation, unspecified; E07.9 Disorder of thyroid, unspecified; I25.2 Old myocardial infarction; M25.512 Pain in left shoulder; M19.90 Unspecified osteoarthritis, unspecified site; F17.210 Nicotine dependence, cigarettes, uncomplicated; Z71.6 Tobacco abuse counseling; Z79.01 Long term (current) use of anticoagulants; Z79.82 Long term (current) use of aspirin; Z79.890 Hormone replacement therapy; Z79.899 Other long term (current) drug therapy; Z95.0 Presence of cardiac pacemaker; Z87.19 Personal history of other diseases of the digestive system; Z85.828 Personal history of other malignant neoplasm of skin; Z90.89 Acquired absence of other organs; Z87.39 Personal history of other diseases of the musculoskeletal system and connective tissue; Z86.59 Personal history of other mental and behavioral disorders; Z86.73 Personal history of transient ischemic attack (TIA), and cerebral infarction without residual deficits; Z98.890 Other specified postprocedural states; Z88.1 Allergy status to other antibiotic agents; Z88.5 Allergy status to narcotic agent; Y83.8 Other surgical procedures as the cause of abnormal reaction of the patient, or of later complication, without mention of misadventure at the time of the procedure; Y92.234 Operating room of hospital as the place of occurrence of the external cause; Z82.49 Family history of ischemic heart disease and other diseases of the circulatory system; Z82.3 Family history of stroke; Z80.9 Family history of malignant neoplasm, unspecified
CPT/HCPCS: 34705; 71045; 71046; 80048; 80053; 81001; 82565; 83735; 83930; 83935; 84300; 84439; 84443; 84484; 85025; 85027; 86850; 86900; 86901; 87040; 87086; 87635; 94640

== ENCOUNTER 2022-07-02 15:25 | Inpatient (IN) | payer MEDICARE, OTHER ==
--- NOTE | 2022-07-02 17:41 | ED ---
Abdominal Pain HPI - General Chief Complaint: Abdominal Pain Stated Complaint: blood clot sent by [facility] Time Seen by Provider: 07/02/22 16:46 Source: patient Mode of arrival: ambulatory Limitations: no limitations - History of Present Illness Initial Comments: 76-year-old male with past medical history of AAA status post endovascular aortic repair on May 12 presents to the emergency department with left flank pain. Procedure was performed by Dr. Anaya. He takes Eliquis 5 mg at home daily for anticoagulation. He has been taking his medications as directed. Yesterday began having left flank pain. He is on Percocet at home. His pain persisted throughout the night and got worse. He went into a Hospital. CT of the Abdomen Was Performed Which Demonstrated Occlusion of the Left Renal Graft. Creatinine 1.3. Patient Transferred to our Facility for Further Evaluation - Related Data Home Medications Medication Instructions Recorded Confirmed oxyCODONE HCL/ACETAMINOPHEN 1 tab PO Q6H PRN 07/16/17 07/02/22 [Percocet 10-325 mg] Dicyclomine [Bentyl] 10 mg PO DAILY 01/31/20 07/02/22 Aspirin EC [Ecotrin Low Dose] 81 mg PO DAILY 06/17/21 07/02/22 Levothyroxine Sodium [Synthroid] 50 mcg PO DAILY 06/17/21 07/02/22 Metoprolol Succinate (ER) [Toprol 50 mg PO DAILY 06/17/21 07/02/22 XL] Naloxone HCl [Narcan] 4 mg NASAL ONCE PRN 06/17/21 07/02/22 Nitroglycerin Sl Tabs [Nitrostat] 0.4 mg SUBLINGUAL Q5M PRN 06/17/21 07/02/22 SUMAtriptan succinate [Imitrex] 50 mg PO BID PRN 07/08/21 07/02/22 Apixaban [Eliquis] 5 mg PO DAILY 03/20/22 07/02/22 Ergocalciferol (Vitamin D2) 1,250 mcg PO MO 03/20/22 07/02/22 [Drisdol (50,000 Iu)] Esomeprazole Magnesium [NexIUM] 40 mg PO DAILY 03/20/22 07/02/22 Umeclidinium Brm/Vilanterol Tr 1 puff INHALATION RT-DAILY 04/28/22 08/10/22 [Anoro Ellipta 62.5-25 Mcg INH] amLODIPine [Norvasc] 5 mg PO DAILY 03/20/22 07/02/22 Isosorbide Mononitrate ER [Imdur] 60 mg PO DAILY 05/09/22 07/02/22 Previous Rx's Medication Instructions Recorded Atorvastatin [Lipitor] 80 mg PO HS #90 tab 03/21/22 Clopidogrel [Plavix] 75 mg PO DAILY #30 tab 05/15/22 Sennosides [Senokot] 8.6 mg PO DAILY tab 05/16/22 Sodium Chloride Tab 1 gm PO DAILY 30 Days #30 tab 05/16/22 Allergies Allergy/AdvReac Type Severity Reaction Status Date / Time cefazolin Allergy Rash/Hives Verified 07/02/22 18:16 cefazolin sodium [From [facility]] Allergy Rash/Hives Verified 07/02/22 18:16 morphine AdvReac Nausea & Verified 07/02/22 18:16 Vomiting Review of Systems ROS Statement: Those systems with pertinent positive or pertinent negative responses have been documented in the HPI. ROS Other: All systems not noted in ROS Statement are negative. Past Medical History Past Medical History: Cancer, Chest Pain / Angina, Hyperlipidemia, Hypertension, Myocardial Infarction ([place]), Osteoarthritis (OA), Syncope, Thyroid Disorder Additional Past Medical History / Comment(s): [place] X2 ("in my 30's), SKIN CA, pain lower spine and legs, rectal bleeding , irregular heart beat, low sodium, see Dr. Fink's H&P. Last Myocardial Infarction Date:: approx 40 yrs ago History of Any Multi-Drug Resistant Organisms: None Reported Past Surgical History: Back Surgery, Heart Catheterization, Hernia Repair, Orthopedic Surgery, Pacemaker, Tonsillectomy Additional Past Surgical History / Comment(s): LAMINECTOMY & PLACEMENT OF NEUROSTIMULATOR, repositioned them later removed, ana catarats, Past Anesthesia/Blood Transfusion Reactions: Motion Sickness Type of Cardiac Device: Permanent Pacemaker Device Placement Date:: October 2017 Past Psychological History: Anxiety, Depression Smoking Status: Current every day smoker Past Alcohol Use History: Daily Past Drug Use History: Marijuana - Past Family History Mother Family Medical History: Cancer Additional Family Medical History / Comment(s): cva with residual left leg weakness April 2020 Father Family Medical History: Cancer Brother(s) Family Medical History: Cancer General Exam Limitations: no limitations General appearance: alert, in no apparent distress Head exam: Present: atraumatic, normocephalic, normal inspection Eye exam: Present: normal appearance, PERRL, EOMI. Absent: scleral icterus, conjunctival injection, periorbital swelling ENT exam: Present: normal exam, mucous membranes moist Neck exam: Present: normal inspection. Absent: tenderness, meningismus, lymphadenopathy Respiratory exam: Present: normal lung sounds bilaterally. Absent: respiratory distress, wheezes, rales, rhonchi, stridor Cardiovascular Exam: Present: regular rate, normal rhythm, normal heart sounds. Absent: systolic murmur, diastolic murmur, rubs, gallop, clicks GI/Abdominal exam: Present: soft, normal bowel sounds. Absent: distended, tenderness, guarding, rebound, rigid Extremities exam: Present: normal inspection, full ROM, normal capillary refill. Absent: tenderness, pedal edema, joint swelling, calf tenderness Back exam: Present: normal inspection Neurological exam: Present: alert, oriented X3, CN II-XII intact Psychiatric exam: Present: normal affect, normal mood Skin exam: Present: warm, dry, intact, normal color. Absent: rash Course Vital Signs 07/02/22 07/02/22 15:43 19:15 Temperature 98.8 F Pulse Rate 99 77 Respiratory 22 18 Rate Blood Pressure 137/76 170/103 O2 Sat by Pulse 97 96 Oximetry Medical Decision Making - Medical Decision Making Upon arrival patient was placed into [facility] . I did review the patient's packet. I did call and speak with Dr. Anaya. Patient will be placed on [facility] drip and admitted to medicine - Lab Data Result diagrams: 07/04/22 07:22 07/04/22 07:22 Disposition Clinical Impression: Acute left flank pain, Complication of aortic graft Disposition: ADMITTED IP TO THIS HOSP Condition: Serious Is patient prescribed a controlled substance at d/c from ED?: No Time of Disposition: 17:41 Decision to Admit Reason: Admit from EC Decision Date: 07/02/22 Decision Time: 17:41
[2022-07-02] MEDS ORDERED: HYDROmorphone 2 MG TAB PO PRN (17:42)
[2022-07-02] MEDS ORDERED: HEPARIN SODIUM 1,000 UN/ML (10ML VL) IV ONE (17:42)
[2022-07-02] MEDS ORDERED: NALOXONE 0.4 MG/ML 1 ML VIAL IV PRN (17:42)
[2022-07-02] MEDS: HEPARIN SOD,PORK IN 0.45% NACL 25,000 UNIT in 0.45% NACL 1 250ML.BAG IV SCH (19:09)
[2022-07-02] MEDS: HYDROmorphone 1 MG/ML 1 ML SYRINGE IVP PRN ×2 (20:03→23:07)
[2022-07-03] MEDS: HYDROmorphone 1 MG/ML 1 ML SYRINGE IVP PRN ×6 (02:08→23:22)
[2022-07-03] MEDS: HEPARIN SODIUM 1,000 UN/ML (10ML VL) IV PRN ×3 (02:11→17:02)
--- NOTE | 2022-07-03 06:09 | P.PN ---
Progress Note - Text Progress Note Date: 07/02/22 Called from [facility] at 5:15 pm for consultation due to occlusion of renal stent seen on CT with contrast at [facility] earlier in the day. After discussion with the patient and review of the documents from [facility]- patients symptoms of renal occlusion have been going on for greater than 24 hours and evidence of occlusion of the stent was noted at [facility] around 11:00 which is roughly 6 hours prior to me being contacted which is outside the renal window for intervention. I did discuss with [place] for timing as well as the patient and he states the pain started a couple of days ago. Due to the time frame likely being greater than 24 hours there is no surgical intervention recommended. I did discuss this with the patient and informed him that intervention at this time would only put his other kidney at risk. I recommended admission for pain control and heparin drip.
[2022-07-03] MEDS ORDERED: ONDANSETRON 4 MG/2 ML VIAL IVP PRN (08:22)
[2022-07-03 08:49] LABS: Partial Thromboplastin Time 36.5 sec (22.0-30.0); Prothrombin Time 10.4 sec (9.0-12.0)
[2022-07-03] MEDS ORDERED: SUMAtriptan succinate 50 MG TAB PO PRN (09:13)
--- NOTE | 2022-07-03 10:07 | P.GSCN ---
History of Present Illness Consult date: 07/03/22 Reason for Consult: Left Renal artery occlusion Requesting physician: Donte Reyes History of present illness: This is a pleasant 76-year-old male who presented to [facility] yesterday with complaints of left flank and lower abdominal pain. Apparently the patient had a CT of the abdomen and pelvis with contrast showing evidence of occlusion of the stent, however patient had been having symptoms a couple days ago. Dr. Anaya was not notified until [address] had been completed and patient was outside of the window for intervention for occlusion of renal stent. Today the patient states he still having left abdominal and flank pain. He is up and ambulating in his room. Also having some nausea but no vomiting. States the pain started a few days ago. Today's labs are currently pending. Patient was started on IV heparin drip. He denies any shortness of breath, chest pain, fevers or chills. Review of Systems A 14 point review systems was completed all pertinent positives and negatives as stated in the HPI. Past Medical History Past Medical History: Cancer, Chest Pain / Angina, Hyperlipidemia, Hypertension, Myocardial Infarction ([place]), Osteoarthritis (OA), Syncope, Thyroid Disorder Additional Past Medical History / Comment(s): [place] X2 ("in my 30's), SKIN CA, pain lower spine and legs, rectal bleeding , irregular heart beat, low sodium, see Dr. Fink's H&P. Last Myocardial Infarction Date:: approx 40 yrs ago History of Any Multi-Drug Resistant Organisms: None Reported Past Surgical History: Back Surgery, Heart Catheterization, Hernia Repair, Orthopedic Surgery, Pacemaker, Tonsillectomy Additional Past Surgical History / Comment(s): LAMINECTOMY & PLACEMENT OF NEUROSTIMULATOR, repositioned them later removed, ana catarats, Past Anesthesia/Blood Transfusion Reactions: Motion Sickness Type of Cardiac Device: Permanent Pacemaker Device Placement Date:: October 2017 Past Psychological History: Anxiety, Depression Smoking Status: Current every day smoker Past Alcohol Use History: Daily Past Drug Use History: Marijuana - Past Family History Mother Family Medical History: Cancer Additional Family Medical History / Comment(s): cva with residual left leg weakness April 2020 Father Family Medical History: Cancer Brother(s) Family Medical History: Cancer Medications and Allergies Home Medications Medication Instructions Recorded Confirmed Type oxyCODONE HCL/ACETAMINOPHEN 1 tab PO Q6H PRN 07/16/17 07/02/22 History [Percocet 10-325 mg] Dicyclomine [Bentyl] 10 mg PO DAILY 01/31/20 07/02/22 History Aspirin EC [Ecotrin Low Dose] 81 mg PO DAILY 06/17/21 07/02/22 History Levothyroxine Sodium [Synthroid] 50 mcg PO DAILY 06/17/21 07/02/22 History Metoprolol Succinate (ER) [Toprol 50 mg PO DAILY 06/17/21 07/02/22 History XL] Naloxone HCl [Narcan] 4 mg NASAL ONCE PRN 06/17/21 07/02/22 History Nitroglycerin Sl Tabs [Nitrostat] 0.4 mg SUBLINGUAL Q5M PRN 06/17/21 07/02/22 History SUMAtriptan succinate [Imitrex] 50 mg PO BID PRN 07/08/21 07/02/22 History Apixaban [Eliquis] 5 mg PO DAILY 03/20/22 07/02/22 History Ergocalciferol (Vitamin D2) 1,250 mcg PO MO 03/20/22 07/02/22 History [Drisdol (50,000 Iu)] Esomeprazole Magnesium [NexIUM] 40 mg PO DAILY 03/20/22 07/02/22 History Umeclidinium Brm/Vilanterol Tr 1 puff INHALATION RT-DAILY 03/20/22 07/02/22 History [Anoro Ellipta 62.5-25 Mcg INH] amLODIPine [Norvasc] 5 mg PO DAILY 03/20/22 07/02/22 History Atorvastatin [Lipitor] 80 mg PO HS #90 tab 03/21/22 07/02/22 Rx Isosorbide Mononitrate ER [Imdur] 60 mg PO DAILY 05/09/22 07/02/22 History Clopidogrel [Plavix] 75 mg PO DAILY #30 tab 05/15/22 07/02/22 Rx Sennosides [Senokot] 8.6 mg PO DAILY tab 05/16/22 07/02/22 Rx Sodium Chloride Tab 1 gm PO DAILY 30 Days #30 tab 05/16/22 07/02/22 Rx Allergies Allergy/AdvReac Type Severity Reaction Status Date / Time cefazolin Allergy Rash/Hives Verified 07/02/22 18:16 cefazolin sodium [From [facility]] Allergy Rash/Hives Verified 07/02/22 18:16 morphine AdvReac Nausea & Verified 07/02/22 18:16 Vomiting Surgical - Exam Vital Signs Temp Pulse Resp BP Pulse Ox 98.8 F 99 22 137/76 97 07/02/22 15:43 07/02/22 15:43 07/02/22 15:43 07/02/22 15:43 07/02/22 15:43 General appearance: The patient is alert, oriented, appears in no acute distress. HET: Head is normocephalic and atraumatic. Pupils are equal and reactive. Neck: Supple without lymphadenopathy. Trachea midline. Heart: S1 S2. Regular rate and rhythm. Lungs: Clear to auscultation bilaterally. Abdomen: Soft, tenderness in left lower quadrant, nondistended. Extremities: Normal skin color and turgor. No cyanosis, rash, ulceration, clubbing, or edema. Neurological: No focal deficits. Strength and sensation are grossly intact. Results - Labs Abnormal Lab Results - Last 24 Hours (Table) 07/02/22 Range/Units 23:11 APTT 40.4 H (22.0-30.0) sec Assessment and Plan Assessment: 1. Left renal artery stent occlusion 2. Abdominal pain, left flank pain 3. Recent endovascular aortic repair of abdominal aortic aneurysm done 05/12/2022 Plan: 1. Will resume patient's Percocet from home 2. Antiemetics as needed 3. Continue aspirin and Plavix 4. Continue IV heparin drip for now 5. There is no plan for any vascular surgical intervention, this was discussed in depth with patient yesterday and attending regarding patient outside of the window for surgical intervention. 6. Continue with pain management Thank you for this consultation, we will continue to follow. The impression and plan of care has been dictated as directed. Dr. Vergara I performed a history and examination of this patient, discussed the same with the dictator. I agree with the dictator's note ,documented as a scribe. Any additional findings or plans will be noted.
--- NOTE | 2022-07-03 10:20 | P.HPIM ---
History of Present Illness This is a pleasant 76 years old male with past medical history of coronary artery disease, Hyperlipidemia, Hypertension, Osteoarthritis (OA), Syncope, hypothyroidism, irregular heartbeat status post pacemaker, nicotine dependence Patient presents because of acute left flank pain at [facility]. Patient states that his pain was 10/10 in severity on admission, felt like sharp like a knife. This starts on the left flank and the back and turns around to the front of the abdomen. No radiation to the genitalia. He denies chest pain or dyspnea. No dysuria. No diarrhea. No headache or weakness of numbness. He smokes about 1 pack per day and he was consulted and agrees to quit and nicotine patch. Drinks alcohol occlusion only, no illicit drugs reviewed at the [facility] Showing Sodium 135, Potassium 3.7, Creatinine 1.3 Urine drug screen was positive for cannabinoid, CBC showing mildly elevated WBC 11.2, hemoglobin 14.4, platelet 334. Urinalysis showing trace 1+ protein, INR 0.9 CT of the abdomen and pelvis with IV contrast: Diffusely hypoattenuated liver, adenomatous hypertrophic changes of the adrenal gland, no bowel obstruction no free fluid, aortic stent graft is patent without evidence of endoleak. There is left probably renal left artery stent graft which appears occluded. This findings of from 05/22/2022. There is moderate to severe atherosclerosis of the arterial vasculature., This is consistent with vascular occlusion of the left renal artery stent graft Review of Systems Review of systems CONSTITUTIONAL: No fever, no malaise, no fatigue. HEENT: No recent visual problems or hearing problems. Denied any sore throat. CARDIOVASCULAR: No orthopnea, PND, no palpitations, no syncope. PULMONARY: No shortness of breath, no cough, no hemoptysis. GASTROINTESTINAL: No diarrhea, no nausea, no vomiting, Normoactive bowel sounds. NEUROLOGICAL: No headaches, no weakness, no numbness. HEMATOLOGICAL: Denies any bleeding or petechiae. GENITOURINARY: Denies any burning micturition, frequency, or urgency. MUSCULOSKELETAL/RHEUMATOLOGICAL: Denies any joint pain, swelling, or any muscle pain. ENDOCRINE: Denies any polyuria or polydipsia. Past Medical History Past Medical History: Cancer, Chest Pain / Angina, Hyperlipidemia, Hypertension, Myocardial Infarction (GA), Osteoarthritis (OA), Syncope, Thyroid Disorder Additional Past Medical History / Comment(s): GA X2 ("in my 30's), SKIN CA, pain lower spine and legs, rectal bleeding , irregular heart beat, low sodium, see Dr. Fink's H&P. Last Myocardial Infarction Date:: approx 40 yrs ago History of Any Multi-Drug Resistant Organisms: None Reported Past Surgical History: Back Surgery, Heart Catheterization, Hernia Repair, Orthopedic Surgery, Pacemaker, Tonsillectomy Additional Past Surgical History / Comment(s): LAMINECTOMY & PLACEMENT OF NEUROSTIMULATOR, repositioned them later removed, ana catarats, Past Anesthesia/Blood Transfusion Reactions: Motion Sickness Type of Cardiac Device: Permanent Pacemaker Device Placement Date:: October 2017 Past Psychological History: Anxiety, Depression Smoking Status: Current every day smoker Past Alcohol Use History: Daily Past Drug Use History: Marijuana - Past Family History Mother Family Medical History: Cancer Additional Family Medical History / Comment(s): cva with residual left leg weakness April 2020 Father Family Medical History: Cancer Brother(s) Family Medical History: Cancer Medications and Allergies Home Medications Medication Instructions Recorded Confirmed Type oxyCODONE HCL/ACETAMINOPHEN 1 tab PO Q6H PRN 07/16/17 07/02/22 History [Percocet 10-325 mg] Dicyclomine [Bentyl] 10 mg PO DAILY 01/31/20 07/02/22 History Aspirin EC [Ecotrin Low Dose] 81 mg PO DAILY 06/17/21 07/02/22 History Levothyroxine Sodium [Synthroid] 50 mcg PO DAILY 06/17/21 07/02/22 History Metoprolol Succinate (ER) [Toprol 50 mg PO DAILY 06/17/21 07/02/22 History XL] Naloxone HCl [Narcan] 4 mg NASAL ONCE PRN 06/17/21 07/02/22 History Nitroglycerin Sl Tabs [Nitrostat] 0.4 mg SUBLINGUAL Q5M PRN 06/17/21 07/02/22 History SUMAtriptan succinate [Imitrex] 50 mg PO BID PRN 07/08/21 07/02/22 History Apixaban [Eliquis] 5 mg PO DAILY 03/20/22 07/02/22 History Ergocalciferol (Vitamin D2) 1,250 mcg PO MO 03/20/22 07/02/22 History [Drisdol (50,000 Iu)] Esomeprazole Magnesium [NexIUM] 40 mg PO DAILY 03/20/22 07/02/22 History Umeclidinium Brm/Vilanterol Tr 1 puff INHALATION RT-DAILY 03/20/22 07/02/22 History [Anoro Ellipta 62.5-25 Mcg INH] amLODIPine [Norvasc] 5 mg PO DAILY 03/20/22 07/02/22 History Atorvastatin [Lipitor] 80 mg PO HS #90 tab 03/21/22 07/02/22 Rx Isosorbide Mononitrate ER [Imdur] 60 mg PO DAILY 05/09/22 07/02/22 History Clopidogrel [Plavix] 75 mg PO DAILY #30 tab 05/15/22 07/02/22 Rx Sennosides [Senokot] 8.6 mg PO DAILY tab 05/16/22 07/02/22 Rx Sodium Chloride Tab 1 gm PO DAILY 30 Days #30 tab 05/16/22 07/02/22 Rx Allergies Allergy/AdvReac Type Severity Reaction Status Date / Time cefazolin Allergy Rash/Hives Verified 07/02/22 18:16 cefazolin sodium [From Anc] Allergy Rash/Hives Verified 07/02/22 18:16 morphine AdvReac Nausea & Verified 07/02/22 18:16 Vomiting Physical Exam Vitals: Vital Signs Temp Pulse Pulse Resp BP BP Pulse Ox 07/03/22 01:45 97.8 F 75 22 182/90 97 07/02/22 21:31 98.8 F 77 18 170/103 96 07/02/22 21:28 98.3 F 55 L 20 181/83 96 07/02/22 19:15 77 18 170/103 96 07/02/22 15:43 98.8 F 99 22 137/76 97 Intake and Output 07/02/22 07/02/22 07/03/22 14:59 22:59 06:59 Other: # Voids 1 Weight 58.967 kg 58.967 kg GENERAL: The patient is alert and oriented x3, not in any acute distress. Well developed, well nourished. HEENT: Pupils are round and equally reacting to light. EOMI. No scleral icterus. No conjunctival pallor. Normocephalic, atraumatic. No pharyngeal erythema. No thyromegaly. CARDIOVASCULAR: S1 and S2 present. No murmurs, rubs, or gallops. PULMONARY: Chest is clear to auscultation, no wheezing or crackles. -ABDOMEN: Soft, nondistended, normoactive bowel sounds. No palpable organomegaly. Left flank tenderness MUSCULOSKELETAL: No joint swelling or deformity. EXTREMITIES: No cyanosis, clubbing, or pedal edema. NEUROLOGICAL: Gross neurological examination did not reveal any focal deficits. SKIN: No rashes. no petechiae. 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 Continue same treatment. Continue with symptomatic treatment. Resume home medication. Monitor lytes and vitals. DVT and GI prophylaxis. Further recommendations as per clinical course of the patient DVT prophylaxis: heparin GI Prophylaxis: Pepcid PT/OT: Pending Prognosis is guarded
[2022-07-03] MEDS: METOPROLOL SUCCINATE (ER) 50 MG TAB.ER.24H PO SCH (10:27)
[2022-07-03] MEDS: ASPIRIN 81 MG PO SCH (10:27)
[2022-07-03] MEDS: CLOPIDOGREL 75 MG TAB PO SCH (10:27)
[2022-07-03] MEDS: DICYCLOMINE 10 MG CAP PO SCH (10:28)
[2022-07-03] MEDS: NICOTINE 21MG/24HR PATCH TRANSDERM SCH (10:28)
[2022-07-03] MEDS: amLODIPine 5 MG TAB PO SCH (10:28)
[2022-07-03 10:32] LABS: HCT 44.2 % (39.6-50.0); MCH 33.3 pg (27.0-32.0); MCHC 33.9 g/dL (32.0-37.0); MCV 98.2 fL (80.0-97.0); Mean Platelet Volume 10.5 fL (9.5-12.2); NRBC Per 100 WBC 0 /100 WBCS (0.0-0.0); Platelet Count 320 X 10*3/uL (140-440); RDW 13.3 % (11.5-14.5); WBC 14.02 X 10*3/uL (4.50-10.00)
[2022-07-03] MEDS: oxyCODONE-APAP 10-325MG 1 EACH TAB PO PRN ×3 (10:34→22:18)
[2022-07-03] MEDS: LEVOTHYROXINE 50 MCG TAB PO SCH (10:34)
[2022-07-03] MEDS: PANTOPRAZOLE 40 MG TABLET PO SCH (10:34)
[2022-07-03] MEDS: SENNOSIDES 8.6 MG TAB PO SCH (10:34)
[2022-07-03 10:53] LABS: African American GFR (CKD) 52.4 (60.0-200.0); Anion Gap 16.1 mmol/L (10.00-18.00); BUN/Creat Ratio 11.93 Ratio (12.00-20.00); Blood Urea Nitrogen 17.9 mg/dL (9.0-27.0); Carbon Dioxide 21.9 mmol/L (20.0-27.5); Non-African American GFR(CKD) 45.2 (60.0-200.0)
[2022-07-03 11:42] LABS: Basophils # (A) 0.08 X 10*3/uL (0.00-0.10); Basophils % (A) 0.6 %; Eosinophils # (A) 0.01 X 10*3/uL (0.04-0.35); Eosinophils % (A) 0.1 %; Immature Grans, Automated 0.5 %; Lymphocytes # (A) 1.34 X 10*3/uL (0.90-5.00); Lymphocytes % (A) 9.6 %; Monocytes # (A) 1.52 X 10*3/uL (0.20-1.00); Monocytes % (A) 10.8 %; Neutrophils % (A) 78.4 %
[2022-07-03 14:59] LABS: Glucose,Whole Blood 109 mg/dL (70-110)
[2022-07-03] MEDS ORDERED: Magnesium Replacement Protocol 1 EACH MISC MISCELLANE PRN (16:36)
[2022-07-03] MEDS: MAGNESIUM SULFATE-D5W PMX 1 GM in DEXTROSE/WATER 1 100ML.BAG IVPB SCH ×2 (17:01→18:27)
[2022-07-03] MEDS: ATORVASTATIN 80 MG TAB PO SCH (20:22)
[2022-07-03] MEDS: FAMOTIDINE 20 MG/2 ML VIAL IV SCH (20:22)
[2022-07-04] MEDS: HEPARIN SOD,PORK IN 0.45% NACL 25,000 UNIT in 0.45% NACL 1 250ML.BAG IV SCH (02:38)
[2022-07-04] MEDS: HYDROmorphone 1 MG/ML 1 ML SYRINGE IVP PRN ×5 (03:28→23:55)
[2022-07-04] MEDS: PANTOPRAZOLE 40 MG TABLET PO SCH (06:28)
[2022-07-04] MEDS: LEVOTHYROXINE 50 MCG TAB PO SCH (06:28)
[2022-07-04 08:04] LABS: Basophils # (A) 0.1 k/uL (0-0.2); Basophils % (A) 1 %; Eosinophils # (A) 0.2 k/uL (0-0.7); Eosinophils % (A) 2 %; HCT 44.3 % (39.0-53.0); HGB 14.7 gm/dL (13.0-17.5); Lymphocytes # (A) 1.7 k/uL (1.0-4.8); Lymphocytes % (A) 19 %; MCH 33.8 pg (25.0-35.0); MCHC 33.3 g/dL (31.0-37.0); MCV 101.6 fL (80.0-100.0); Macrocytosis Slight; Mean Platelet Volume 7.5; Monocytes % (A) 11 %; Neutrophils # (A) 5.8 k/uL (1.3-7.7); Neutrophils % (A) 65 %; Platelet Count 313 k/uL (150-450); RBC 4.36 m/uL (4.30-5.90); RDW 12.9 % (11.5-15.5); WBC 8.9 k/uL (3.8-10.6)
[2022-07-04] MEDS: IPRATROPIUM 0.5 MG/2.5 ML NEBU INHALATION SCH ×4 (08:38→20:03)
[2022-07-04] MEDS: FORMOTEROL FUMARATE 20 MCG/2 ML NEBU INHALATION SCH ×2 (08:38→20:03)
[2022-07-04 09:00] LABS: Calcium 9.4 mg/dL (8.4-10.2); Potassium 3.9 mmol/L (3.5-5.1)
[2022-07-04] MEDS: oxyCODONE-APAP 10-325MG 1 EACH TAB PO PRN ×2 (10:03→16:03)
[2022-07-04] MEDS: FAMOTIDINE 20 MG/2 ML VIAL IV SCH (10:04)
[2022-07-04] MEDS: ASPIRIN 81 MG PO SCH (10:04)
[2022-07-04] MEDS: ISOSORBIDE MONONITRATE ER 60 MG TAB.ER.24H PO SCH (10:04)
[2022-07-04] MEDS: CLOPIDOGREL 75 MG TAB PO SCH (10:04)
[2022-07-04] MEDS: amLODIPine 5 MG TAB PO SCH (10:04)
[2022-07-04] MEDS: APIXABAN 5 MG TAB PO SCH ×2 (10:04→20:32)
[2022-07-04] MEDS: NICOTINE 21MG/24HR PATCH TRANSDERM SCH (10:05)
[2022-07-04] MEDS: METOPROLOL SUCCINATE (ER) 50 MG TAB.ER.24H PO SCH (10:05)
[2022-07-04] MEDS: SENNOSIDES 8.6 MG TAB PO SCH (10:05)
[2022-07-04] MEDS: DICYCLOMINE 10 MG CAP PO SCH (10:05)
[2022-07-04] MEDS: polyethylene glycoL 3350 17 GM POWD.PACK PO SCH (10:05)
--- NOTE | 2022-07-04 10:59 | P.PN ---
Subjective Progress Note Date: 07/04/22 Principal diagnosis: Left Renal artery occlusion Patient is seen and examined today as a follow-up for left renal artery occlusion status post Ivar 05/12/2022. He had significant chest pain which she rated a 10 out of 10 across his chest yesterday evening, an A-team was called. He was subsequently transferred to the cardiac unit. Cardiology has been consulted. Patient states the chest pain has improved, however he is still having left lower quadrant abdominal pain as well as left flank pain. He states he did not eat his breakfast, he has little appetite. Denies any vomiting but does have some mild nausea. Kidney function improving. Objective - Vital Signs Vital signs: Vital Signs Temp 97.4 F L 07/04/22 09:44 Pulse 74 07/04/22 09:44 Resp 18 07/04/22 09:44 BP 190/85 07/04/22 09:44 Pulse Ox 98 07/04/22 09:44 FiO2 Intake & Output 07/03/22 07/04/22 07/04/22 18:59 06:59 18:59 Intake Total 262.844 187.156 0 Output Total 300 300 300 Balance -37.156 -112.844 -300 Intake: Intake, IV Titration 262.844 187.156 Amount Heparin Sod,Pork in 0.45% 162.844 87.156 NaCl 25,000 unit In 0.45 % NaCl 1 250ml.bag @ 12 UNITS/KG/HR 7.076 mls/hr IV .Q24H B[facility]KY Rx#: [id number] Magnesium Sulfate-D5w Pmx 100 100 1 gm In Dextrose/Water 1 100ml.bag @ 100 mls/hr IVPB Q1H B[facility]KY Rx#: [id number] Oral 0 0 0 Output: Urine 300 300 300 Other: Voiding Method Toilet Toilet Urinal Urinal - Exam General appearance: The patient is alert, oriented, appears in no acute distress. HET: Head is normocephalic and atraumatic. Conjunctiva pink. Sclera anicteric. Neck: Supple without lymphadenopathy. Abdomen: Soft, tender to palpation left lower quadrant and left flank, nondistended. Extremities: Normal skin color and turgor. No pedal edema Skin: No rashes, no jaundice Neurological: No focal deficits. Alert and oriented x3. - Labs CBC & Chem 7: 07/04/22 07:22 07/04/22 07:22 Labs: Abnormal Lab Results - Last 24 Hours (Table) 07/03/22 07/03/22 07/03/22 Range/Units 07:49 07:49 15:22 MCV (80.0-100.0) fL Immature Gran # 0.07 H (0.00-0.04) X 10*3/uL Neutrophils # 11.00 H (1.80-7.70) X 10*3/uL Monocytes # 1.52 H (0.20-1.00) X 10*3/uL Eosinophils # 0.01 L (0.04-0.35) X 10*3/uL APTT (22.0-30.0) sec Sodium 132 L (135-145) mmol/L Chloride 94 L (96-109) mmol/L Creatinine (0.66-1.25) mg/dL Est GFR (CKD-EPI)AfAm 52.4 L (60.0-200.0) Est GFR (CKD-EPI)NonAf 45.2 L (60.0-200.0) BUN/Creatinine Ratio 11.93 L (12.00-20.00) Ratio Glucose 126 H (70-110) mg/dL Troponin I 0.048 H* (0.000-0.034) ng/mL 07/03/22 07/03/22 07/04/22 Range/Units 15:29 23:01 07:22 MCV (80.0-100.0) fL Immature Gran # (0.00-0.04) X 10*3/uL Neutrophils # (1.80-7.70) X 10*3/uL Monocytes # (0.20-1.00) X 10*3/uL Eosinophils # (0.04-0.35) X 10*3/uL APTT 38.3 H 57.9 H (22.0-30.0) sec Sodium 131 L (135-145) mmol/L Chloride 95 L (96-109) mmol/L Creatinine 1.42 H (0.66-1.25) mg/dL Est GFR (CKD-EPI)AfAm (60.0-200.0) Est GFR (CKD-EPI)NonAf (60.0-200.0) BUN/Creatinine Ratio (12.00-20.00) Ratio Glucose (70-110) mg/dL Troponin I (0.000-0.034) ng/mL 07/04/22 07/04/22 Range/Units 07:22 07:22 MCV 101.6 H (80.0-100.0) fL Immature Gran # (0.00-0.04) X 10*3/uL Neutrophils # (1.80-7.70) X 10*3/uL Monocytes # (0.20-1.00) X 10*3/uL Eosinophils # (0.04-0.35) X 10*3/uL APTT 47.6 H (22.0-30.0) sec Sodium (135-145) mmol/L Chloride (96-109) mmol/L Creatinine (0.66-1.25) mg/dL Est GFR (CKD-EPI)AfAm (60.0-200.0) Est GFR (CKD-EPI)NonAf (60.0-200.0) BUN/Creatinine Ratio (12.00-20.00) Ratio Glucose (70-110) mg/dL Troponin I (0.000-0.034) ng/mL Assessment and Plan Assessment: 1. Left renal artery stent occlusion 2. Abdominal pain, left flank pain 3. Recent endovascular aortic repair of abdominal aortic aneurysm done 05/12/2022 Plan: 1. Continue with pain management 2. Antiemetics as needed 3. Continue aspirin and Plavix 4. May transition to Eliquis 5mg BID 5. There is no plan for any vascular surgical intervention, this was discussed in depth with patient yesterday and attending regarding patient outside of the window for surgical intervention. Discussed with patient if pain does not impro ve can discuss possible nephrectomy however not recommended at this time. Thank you for this consultation, we will continue to follow. The impression and plan of care has been dictated as directed. Dr. Saunders I performed a history and examination of this patient, discussed the same with the dictator. I agree with the dictator's note ,documented as a scribe. Any additional findings or plans will be noted.
--- NOTE | 2022-07-04 11:19 | CA ---
Transthoracic Echo Report Name: Lemuel Wood Age: 76 Gender: M : 1945 Exam Date: 07/04/2022 09:54 Exam Location: [facility] Ht (in): 65 Wt (lb): 130 Ordering Physician: Urmila Lopez Attending/Referring Phys: [id number], Jessica Senior Telecommunications Specialist Zulema Hinson, GALLO Procedure CPT: Indications: LV function, chest pain Cardiac Hx: Technical Quality: Good Contrast 1: Total Dose (mL): Contrast 2: Total Dose (mL): MEASUREMENTS (Male / Female) Normal Values 2D ECHO LV Diastolic Diameter PLAX 4.0 cm 4.2 - 5.9 / 3.9 - 5.3 cm LV Systolic Diameter PLAX 3.3 cm IVS Diastolic Thickness 1.4 cm 0.6 - 1.0 / 0.6 - 0.9 cm LVPW Diastolic Thickness 1.4 cm 0.6 - 1.0 / 0.6 - 0.9 cm LV Relative Wall Thickness 0.7 RV Internal Dim ED PLAX 3.6 cm LA Systolic Diameter LX 4.0 cm 3.0 - 4.0 / 2.7 - 3.8 cm LA Volume 34.7 cm??? 18 - 58 / 22 - 52 cm??? M-MODE Aortic Root Diameter MM 3.6 cm MV E Point Septal Separation 0.8 cm AV Cusp Separation MM 2.2 cm DOPPLER MV Area PHT 1.7 cm??? Mitral E Point Velocity 57.8 cm/s Mitral A Point Velocity 89.6 cm/s Mitral E to A Ratio 0.6 MV Deceleration Time 439.6 ms MV E' Velocity 4.5 cm/s Mitral E to MV E' Ratio 12.9 TR Peak Velocity 231.3 cm/s TR Peak Gradient 21.4 mmHg Right Ventricular Systolic Press 25.8 mmHg FINDINGS Left Ventricle Left ventricular ejection fraction is estimated at 55-60 %. Left ventricular cavity size normal. Moderate concentric left ventricular hypertrophy. Right Ventricle Mild right ventricular dilatation. Right ventricular systolic pressure within normal limits. Right Atrium Normal right atrial size. Left Atrium Normal left atrial size. No evidence for an atrial septal defect. Mitral Valve Structurally normal mitral valve. No mitral stenosis, regurgitation or prolapse. Aortic Valve Trileaflet aortic valve. No aortic valve stenosis or regurgitation. Tricuspid Valve Mild tricuspid regurgitation. Pulmonic Valve Structurally normal pulmonic valve. Pericardium Normal pericardium. No pericardial effusion. Aorta Normal size aortic root and proximal ascending aorta. CONCLUSIONS Normal LV systolic function with concentric left ventricular hypertrophy Mild tricuspid regurgitation Previewed by: Dr. Matias Garcia MD (Electronically Signed) Final Date: 04 July 2022 11:18
--- NOTE | 2022-07-04 12:02 | P.CRDCN ---
History of Present Illness Consult date: 07/04/22 History of present illness: HISTORY OF PRESENT ILLNESS: This is a 76-year-old male with a past medical history significant for paroxysmal atrial fibrillation, permanent pacemaker insertion, hypertension, hyperlipidemia, and recent AAA repair. Patient follows in the office with Dr. Sullivan. We have been asked to see the patient in consultation for chest pain. Patient examined at the bedside. Patient is admitted to the hospital secondary to left renal artery occlusion. He is being followed by vascular surgery. He should states he had an episode of chest pain yesterday evening while laying in bed. He states the pain was across his bilateral chest at the nipple line. He denied any radiation of the pain. Patient states that he received IV Dilaudid which helped the pain. He denies any further episodes of chest pain since that time. * EKG reveals paced rhythm * Laboratory data: WBC 8.9. Hemoglobin 14.7. Platelet count 313. Sodium 131. Potassium 3.9. BUN 17. Creatinine 1.42. Troponin 0.048. 0.026. * Current home cardiac medications include Norvasc 5 mg daily, metoprolol succinate 50 mg daily, Imdur 60 mg daily, Plavix 75 mg daily, Lipitor 80 mg daily, aspirin 81 mg daily, and Eliquis 5 mg twice a day * Echocardiogram obtained revealing ejection fraction 55-60%, mild TR * Cardiac catheterization history: 2020 revealing mild nonobstructive CAD REVIEW OF SYSTEMS: At the time of my exam: CONSTITUTIONAL: Denies fever or chills. HEENT: Denies blurred vision, vision changes, or eye pain. Denies hemoptysis CARDIOVASCULAR: Denies chest pain. Denies orthopnea. Denies PND. Denies palpitations RESPIRATORY: Denies shortness of breath. GASTROINTESTINAL: Denies abdominal pain. Denies nausea or vomiting. HEMATOLOGIC: Denies bleeding disorders. GENITOURINARY: Denies any blood in urine. SKIN: Denies pruitis. Denies rash. PHYSICAL EXAM: VITAL SIGNS: Reviewed. GENERAL: Well-developed in no acute distress. HEENT: Head is normocephalic. Pupils are equal, round. Sclerae anicteric. Mucous membranes of the mouth are moist. Neck supple. No JVD or thyromegaly LUNGS: Respirations even and unlabored. Lungs essentially clear to auscultation bilaterally. HEART: Regular rate and rhythm. S1 and S2 heard. ABDOMEN: Soft. Nondistended. Nontender. EXTREMITIES: Normal range of motion. No clubbing or cyanosis. Peripheral pulses intact. No lower extremity edema NEUROLOGIC: Awake and alert. Oriented x 3. ASSESSMENT: Abdominal pain and left flank pain Left renal artery stent occlusion Recent AAA repair Paroxysmal atrial fibrillation Chest pain, atypical, acute coronary syndrome ruled out History of permanent pacemaker insertion Hypertension Hyperlipidemia Nicotine dependence PLAN: An acute coronary event has been ruled out Case discussed with vascular surgery with no plans for intervention from their standpoint. We'll discontinue IV heparin and resume Eliquis 5 mg twice a day Continue additional cardiac medications Further recommendations pending patient's course Nurse practitioner note has been reviewed by physician. Signing provider agrees with the documented findings, assessment, and plan of care. Past Medical History Past Medical History: Cancer, Chest Pain / Angina, Hyperlipidemia, Hypertension, Myocardial Infarction (ND), Osteoarthritis (OA), Syncope, Thyroid Disorder Additional Past Medical History / Comment(s): ND X2 ("in my 30's), SKIN CA, pain lower spine and legs, rectal bleeding , irregular heart beat, low sodium, see Dr. Fink's H&P. Last Myocardial Infarction Date:: approx 40 yrs ago History of Any Multi-Drug Resistant Organisms: None Reported Past Surgical History: Back Surgery, Heart Catheterization, Hernia Repair, Orthopedic Surgery, Pacemaker, Tonsillectomy Additional Past Surgical History / Comment(s): LAMINECTOMY & PLACEMENT OF NEUROSTIMULATOR, repositioned them later removed, ana catarats, Past Anesthesia/Blood Transfusion Reactions: Motion Sickness Type of Cardiac Device: Permanent Pacemaker Device Placement Date:: October 2017 Past Psychological History: Anxiety, Depression Smoking Status: Current every day smoker Past Alcohol Use History: Daily Past Drug Use History: Marijuana - Past Family History Mother Family Medical History: Cancer Additional Family Medical History / Comment(s): cva with residual left leg weakness April 2020 Father Family Medical History: Cancer Brother(s) Family Medical History: Cancer Medications and Allergies Home Medications Medication Instructions Recorded Confirmed Type oxyCODONE HCL/ACETAMINOPHEN 1 tab PO Q6H PRN 07/16/17 07/02/22 History [Percocet 10-325 mg] Dicyclomine [Bentyl] 10 mg PO DAILY 01/31/20 07/02/22 History Aspirin EC [Ecotrin Low Dose] 81 mg PO DAILY 06/17/21 07/02/22 History Levothyroxine Sodium [Synthroid] 50 mcg PO DAILY 06/17/21 07/02/22 History Metoprolol Succinate (ER) [Toprol 50 mg PO DAILY 06/17/21 07/02/22 History XL] Naloxone HCl [Narcan] 4 mg NASAL ONCE PRN 06/17/21 07/02/22 History Nitroglycerin Sl Tabs [Nitrostat] 0.4 mg SUBLINGUAL Q5M PRN 06/17/21 07/02/22 History SUMAtriptan succinate [Imitrex] 50 mg PO BID PRN 07/08/21 07/02/22 History Apixaban [Eliquis] 5 mg PO DAILY 03/20/22 07/02/22 History Ergocalciferol (Vitamin D2) 1,250 mcg PO MO 03/20/22 07/02/22 History [Drisdol (50,000 Iu)] Esomeprazole Magnesium [NexIUM] 40 mg PO DAILY 03/20/22 07/02/22 History Umeclidinium Brm/Vilanterol Tr 1 puff INHALATION RT-DAILY 03/20/22 07/02/22 History [Anoro Ellipta 62.5-25 Mcg INH] amLODIPine [Norvasc] 5 mg PO DAILY 03/20/22 07/02/22 History Atorvastatin [Lipitor] 80 mg PO HS #90 tab 03/21/22 07/02/22 Rx Isosorbide Mononitrate ER [Imdur] 60 mg PO DAILY 05/09/22 07/02/22 History Clopidogrel [Plavix] 75 mg PO DAILY #30 tab 05/15/22 07/02/22 Rx Sennosides [Senokot] 8.6 mg PO DAILY tab 05/16/22 07/02/22 Rx Sodium Chloride Tab 1 gm PO DAILY 30 Days #30 tab 05/16/22 07/02/22 Rx Allergies Allergy/AdvReac Type Severity Reaction Status Date / Time cefazolin Allergy Rash/Hives Verified 07/02/22 18:16 cefazolin sodium [From Ancef] Allergy Rash/Hives Verified 07/02/22 18:16 morphine AdvReac Nausea & Verified 07/02/22 18:16 Vomiting Physical Exam Vitals: Vital Signs Temp Pulse Pulse Resp BP Pulse Ox 07/04/22 09:44 97.4 F L 74 18 190/85 98 07/04/22 08:39 76 07/04/22 03:23 98.3 F 63 14 161/79 95 07/03/22 23:16 98.3 F 67 20 160/80 97 07/03/22 19:32 97.6 F 60 18 157/75 96 07/03/22 15:39 69 177/85 07/03/22 15:17 74 168/100 99 07/03/22 14:53 97.9 F 77 157/82 97 07/03/22 14:00 97.9 F 77 24 157/82 97 Intake and Output 07/03/22 07/04/22 07/04/22 22:59 06:59 14:59 Intake Total 156.822 187.156 0 Output Total 300 300 300 Balance -143.178 -112.844 -300 Intake: Intake, IV Titration 156.822 187.156 Amount Heparin Sod,Pork in 0.45% 56.822 87.156 NaCl 25,000 unit In 0.45 % NaCl 1 250ml.bag @ 12 UNITS/KG/HR 7.076 mls/hr IV .Q24H [facility] Rx#: [id number] Magnesium Sulfate-D5w Pmx 100 100 1 gm In Dextrose/Water 1 100ml.bag @ 100 mls/hr IVPB Q1H [facility] Rx#: [id number] Oral 0 0 Output: Urine 300 300 300 Other: Voiding Method Toilet Toilet Urinal Urinal Results 07/04/22 07:22 07/04/22 07:22 Cardiac Enzymes 07/03/22 07/04/22 Range/Units 15:22 10:10 Troponin I 0.048 H* 0.026 (0.000-0.034) ng/mL Coagulation 07/03/22 07/03/22 07/04/22 Range/Units 15:29 23:01 07:22 APTT 38.3 H 57.9 H 47.6 H (22.0-30.0) sec CBC 07/04/22 Range/Units 07:22 WBC 8.9 (3.8-10.6) k/uL RBC 4.36 (4.30-5.90) m/uL Hgb 14.7 (13.0-17.5) gm/dL Hct 44.3 (39.0-53.0) % Plt Count 313 (150-450) k/uL Comprehensive Metabolic Panel 07/04/22 Range/Units 07:22 Sodium 131 L (137-145) mmol/L Potassium 3.9 (3.5-5.1) mmol/L Chloride 95 L (98-107) mmol/L Carbon Dioxide 23 (22-30) mmol/L BUN 17 (9-20) mg/dL Creatinine 1.42 H (0.66-1.25) mg/dL Glucose 94 (74-99) mg/dL Calcium 9.4 (8.4-10.2) mg/dL Current Medications Generic Name Dose Route Start Last Admin Trade Name Freq PRN Reason Stop Dose Admin Amlodipine Besylate 5 mg 07/03/22 09:15 07/04/22 10:04 Amlodipine 5 Mg Tab PO 5 mg DAILY [facility] Administration Apixaban 5 mg 07/04/22 09:45 07/04/22 10:04 Apixaban 5 Mg Tab PO 5 mg BID [facility] Administration Protocol Aspirin 81 mg 07/03/22 09:00 07/04/22 10:04 Aspirin 81 Mg PO 81 mg DAILY [facility] Administration Atorvastatin Calcium 80 mg 07/03/22 21:00 07/03/22 20:22 Atorvastatin 80 Mg Tab PO 80 mg HS [facility] Administration Clopidogrel Bisulfate 75 mg 07/03/22 09:00 07/04/22 10:04 Clopidogrel 75 Mg Tab PO 75 mg DAILY [facility] Administration Dicyclomine HCl 10 mg 07/03/22 09:15 07/04/22 10:05 Dicyclomine 10 Mg Cap PO 10 mg DAILY [facility] Administration Ergocalciferol 1,250 mcg 07/07/22 09:00 Ergocalciferol 1,250 Mcg (50,000 Iu) Capsule PO MO [facility] Famotidine 20 mg 07/03/22 21:00 07/04/22 10:04 Famotidine 20 Mg/2 Ml Vial IV 20 mg Q12HR [facility] Administration Formoterol Fumarate 20 mcg 07/04/22 08:00 07/04/22 08:38 Formoterol Fumarate 20 Mcg/2 Ml Nebu INHALATION Not Given RT-BID [facility] Heparin Sodium (Porcine) 0 unit 07/02/22 17:42 07/03/22 17:02 Heparin Sodium 1,000 Un/Ml (10ml Vl) IV 1,475 unit PER PROTOCOL PRN Administration Low PTT Protocol Hydromorphone HCl 1 mg 07/04/22 09:25 Hydromorphone 1 Mg/Ml 1 Ml Syringe IVP Q2HR PRN Pain Ipratropium [place] 0.5 mg 07/04/22 08:00 07/04/22 08:38 Ipratropium 0.5 Mg/2.5 Ml Nebu INHALATION Not Given RT-QID [facility] Isosorbide Mononitrate 60 mg 07/04/22 09:00 07/04/22 10:04 Isosorbide Mononitrate Er 60 Mg Tab.Er.24h PO 60 mg DAILY [facility] Administration Levothyroxine Sodium 50 mcg 07/03/22 09:15 07/04/22 06:28 Levothyroxine 50 Mcg Tab PO 50 mcg DAILY@0630 [facility] Administration Metoprolol Succinate 50 mg 07/03/22 09:15 07/04/22 10:05 Metoprolol Succinate (Er) 50 Mg Tab.Er.24h PO 50 mg DAILY [facility] Administration Miscellaneous Information 1 each 07/03/22 16:36 Magnesium Replacement Protocol 1 Each Misc MISCELLANE DAILY PRN Per Protocol Protocol Naloxone HCl 0.2 mg 07/02/22 17:42 Naloxone 0.4 Mg/Ml 1 Ml Vial IV Q2M PRN Opioid Reversal Nicotine 1 patch 07/03/22 10:30 07/04/22 10:05 Nicotine 21mg/24hr Patch TRANSDERM Not Given DAILY [facility] Ondansetron HCl 4 mg 07/03/22 08:22 Ondansetron 4 Mg/2 Ml Vial IVP Q6HR PRN Nausea And Vomiting Oxycodone/Acetaminophen 1 each 07/04/22 09:24 07/04/22 10:03 Oxycodone-Apap 10-325mg 1 Each Tab PO 1 each Q4HR PRN Administration Pain Pantoprazole Sodium 40 mg 07/03/22 09:00 07/04/22 06:28 Pantoprazole 40 Mg Tablet PO 40 mg AC-[id number] [facility] Administration Polyethylene Glycol 17 gm 07/04/22 09:45 07/04/22 10:05 Polyethylene Glycol 3350 17 Gm Powd.Pack PO 17 gm DAILY [facility] Administration Senna 8.6 mg 07/03/22 09:15 07/04/22 10:05 Sennosides 8.6 Mg Tab PO 8.6 mg DAILY [facility] Administration Sumatriptan Succinate 50 mg 07/03/22 09:13 Sumatriptan Succinate 50 Mg Tab PO BID PRN Migraine Headache Intake and Output 07/03/22 07/04/22 07/04/22 22:59 06:59 14:59 Intake Total 156.822 187.156 0 Output Total 300 300 300 Balance -143.178 -112.844 -300 Intake: Intake, IV Titration 156.822 187.156 Amount Heparin Sod,Pork in 0.45% 56.822 87.156 NaCl 25,000 unit In 0.45 % NaCl 1 250ml.bag @ 12 UNITS/KG/HR 7.076 mls/hr IV .Q24H [facility] Rx#: [id number] Magnesium Sulfate-D5w Pmx 100 100 1 gm In Dextrose/Water 1 100ml.bag @ 100 mls/hr IVPB Q1H [facility] Rx#: [id number] Oral 0 0 Output: Urine 300 300 300 Other: Voiding Method Toilet Toilet Urinal Urinal 07/04/22 07:22 07/04/22 07:22
--- NOTE | 2022-07-04 14:57 | P.NPCON ---
History of Present Illness - Reason for Consult Consult date: 07/04/22 acute renal failure - Chief Complaint Left Flank pain - History of Present Illness 76-year-old gentleman coming to the hospital with left flank pain. His pain was going on for a few days, went to [facility] had a computed tomography scan with contrast shows left renal artery in-stent stenosis. Baseline creatinine 0.9 MG per DL, admission creatinine of 1.5 MG per DL, 1.4 MG per DL today. Denies nausea vomiting diarrhea. No chest pain or shortness of breath. Admits taking NSAIDs outpatient for pain. History of chronic hyponatremia take salt tablets at home. Review of Systems Constitutional: Reports as per HPI Past Medical History Past Medical History: Cancer, Chest Pain / Angina, Hyperlipidemia, Hypertension, Myocardial Infarction (HI), Osteoarthritis (OA), Syncope, Thyroid Disorder Additional Past Medical History / Comment(s): HI X2 ("in my 30's), SKIN CA, pain lower spine and legs, rectal bleeding , irregular heart beat, low sodium, see Dr. Fink's H&P. Last Myocardial Infarction Date:: approx 40 yrs ago History of Any Multi-Drug Resistant Organisms: None Reported Past Surgical History: Back Surgery, Heart Catheterization, Hernia Repair, Orthopedic Surgery, Pacemaker, Tonsillectomy Additional Past Surgical History / Comment(s): LAMINECTOMY & PLACEMENT OF NEUROSTIMULATOR, repositioned them later removed, ana catarats, Past Anesthesia/Blood Transfusion Reactions: Motion Sickness Type of Cardiac Device: Permanent Pacemaker Device Placement Date:: October 2017 Past Psychological History: Anxiety, Depression Smoking Status: Current every day smoker Past Alcohol Use History: Daily Past Drug Use History: Marijuana - Past Family History Mother Family Medical History: Cancer Additional Family Medical History / Comment(s): cva with residual left leg weakness April 2020 Father Family Medical History: Cancer Brother(s) Family Medical History: Cancer Medications and Allergies Home Medications Medication Instructions Recorded Confirmed Type oxyCODONE HCL/ACETAMINOPHEN 1 tab PO Q6H PRN 07/16/17 07/02/22 History [Percocet 10-325 mg] Dicyclomine [Bentyl] 10 mg PO DAILY 01/31/20 07/02/22 History Aspirin EC [Ecotrin Low Dose] 81 mg PO DAILY 06/17/21 07/02/22 History Levothyroxine Sodium [Synthroid] 50 mcg PO DAILY 06/17/21 07/02/22 History Metoprolol Succinate (ER) [Toprol 50 mg PO DAILY 06/17/21 07/02/22 History XL] Naloxone HCl [Narcan] 4 mg NASAL ONCE PRN 06/17/21 07/02/22 History Nitroglycerin Sl Tabs [Nitrostat] 0.4 mg SUBLINGUAL Q5M PRN 06/17/21 07/02/22 History SUMAtriptan succinate [Imitrex] 50 mg PO BID PRN 07/08/21 07/02/22 History Apixaban [Eliquis] 5 mg PO DAILY 03/20/22 07/02/22 History Ergocalciferol (Vitamin D2) 1,250 mcg PO MO 03/20/22 07/02/22 History [Drisdol (50,000 Iu)] Esomeprazole Magnesium [NexIUM] 40 mg PO DAILY 03/20/22 07/02/22 History Umeclidinium Brm/Vilanterol Tr 1 puff INHALATION RT-DAILY 03/20/22 07/02/22 History [Anoro Ellipta 62.5-25 Mcg INH] amLODIPine [Norvasc] 5 mg PO DAILY 03/20/22 07/02/22 History Atorvastatin [Lipitor] 80 mg PO HS #90 tab 03/21/22 07/02/22 Rx Isosorbide Mononitrate ER [Imdur] 60 mg PO DAILY 05/09/22 07/02/22 History Clopidogrel [Plavix] 75 mg PO DAILY #30 tab 05/15/22 07/02/22 Rx Sennosides [Senokot] 8.6 mg PO DAILY tab 05/16/22 07/02/22 Rx Sodium Chloride Tab 1 gm PO DAILY 30 Days #30 tab 05/16/22 07/02/22 Rx Allergies Allergy/AdvReac Type Severity Reaction Status Date / Time cefazolin Allergy Rash/Hives Verified 07/02/22 18:16 cefazolin sodium [From Ancef] Allergy Rash/Hives Verified 07/02/22 18:16 morphine AdvReac Nausea & Verified 07/02/22 18:16 Vomiting Physical Exam Vitals: Vital Signs Temp Pulse Pulse Resp BP Pulse Ox 07/04/22 12:33 97.4 F L 60 18 134/77 97 07/04/22 09:44 97.4 F L 74 18 190/85 98 07/04/22 08:39 76 07/04/22 03:23 98.3 F 63 14 161/79 95 07/03/22 23:16 98.3 F 67 20 160/80 97 07/03/22 19:32 97.6 F 60 18 157/75 96 07/03/22 15:39 69 177/85 07/03/22 15:17 74 168/100 99 07/03/22 14:53 97.9 F 77 157/82 97 Intake and Output 07/03/22 07/04/22 07/04/22 22:59 06:59 14:59 Intake Total 156.822 187.156 180 Output Total 300 300 300 Balance -143.178 -112.844 -120 Intake: Intake, IV Titration 156.822 187.156 Amount Heparin Sod,Pork in 0.45% 56.822 87.156 NaCl 25,000 unit In 0.45 % NaCl 1 250ml.bag @ 12 UNITS/KG/HR 7.076 mls/hr IV .Q24H [facility] Rx#: [id number] Magnesium Sulfate-D5w Pmx 100 100 1 gm In Dextrose/Water 1 100ml.bag @ 100 mls/hr IVPB Q1H [facility] Rx#: [id number] Oral 0 180 Output: Urine 300 300 300 Other: Voiding Method Toilet Toilet Toilet Urinal Urinal Urinal No acute distress S1-S2 heard Lungs clear No edema Results - Lab Results Most recent lab results Calcium 9.4 mg/dL (8.4-10.2) 07/04/22 07:22 Magnesium 2.0 mg/dL (1.6-2.3) 07/04/22 07:22 07/04/22 07:22 07/04/22 07:22 Assessment and Plan Assessment: #1 acute kidney injury suspect secondary to renal artery stenosis/contrast associated. Baseline creatinine 0.9 MG per DL. 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 Check urine analysis and renal ultrasound. #2 restart some salt tablets 1 g twice a day #3 avoid nephrotoxic agents. Daily renal labs.
--- NOTE | 2022-07-04 16:41 | P.PN ---
Subjective This is a pleasant 76 years old male with past medical history of coronary artery disease, Hyperlipidemia, Hypertension, Osteoarthritis (OA), Syncope, hypothyroidism, irregular heartbeat status post pacemaker, nicotine dependence Patient presents because of acute left flank pain at [facility]. Patient states that his pain was 10/10 in severity on admission, felt like sharp like a knife. This starts on the left flank and the back and turns around to the front of the abdomen. No radiation to the genitalia. He denies chest pain or dyspnea. No dysuria. No diarrhea. No headache or weakness of numbness. He smokes about 1 pack per day and he was consulted and agrees to quit and nicotine patch. Drinks alcohol occlusion only, no illicit drugs reviewed at [facility] Showing Sodium 135, Potassium 3.7, Creatinine 1.3 Urine drug screen was positive for cannabinoid, CBC showing mildly elevated WBC 11.2, hemoglobin 14.4, platelet 334. Urinalysis showing trace 1+ protein, INR 0.9 CT of the abdomen and pelvis with IV contrast: Diffusely hypoattenuated liver, adenomatous hypertrophic changes of the adrenal gland, no bowel obstruction no free fluid, aortic stent graft is patent without evidence of endoleak. There is left probably renal left artery stent graft which appears occluded. This findings of from 05/22/2022. There is moderate to severe atherosclerosis of the arterial vasculature., This is consistent with vascular occlusion of the left renal artery stent graft 07/04/2022 Patient is awake and alert however he is still complaining from significant pain in the left flank, Dilaudid 1 mg is a started. And surgery team recommended no surgical intervention. Currently he is kept on Eliquis and heparin drip stopped, continued on aspirin and Plavix. Creatinine is also elevated 1.5-1.4, most likely secondary to renal artery stenosis and contrast, patient is started on sodium bicarb. Monitor flaps Objective - Vital Signs Vital signs: Vital Signs Temp 98.3 F 07/04/22 03:23 Pulse 76 07/04/22 08:39 Resp 14 07/04/22 03:23 BP 161/79 07/04/22 03:23 Pulse Ox 95 07/04/22 03:23 FiO2 Intake & Output 07/03/22 07/04/22 07/04/22 18:59 06:59 18:59 Intake Total 262.844 187.156 0 Output Total 300 300 300 Balance -37.156 -112.844 -300 Intake: Intake, IV Titration 262.844 187.156 Amount Heparin Sod,Pork in 0.45% 162.844 87.156 NaCl 25,000 unit In 0.45 % NaCl 1 250ml.bag @ 12 UNITS/KG/HR 7.076 mls/hr IV .Q24H [facility] Rx#: [id number] Magnesium Sulfate-D5w Pmx 100 100 1 gm In Dextrose/Water 1 100ml.bag @ 100 mls/hr IVPB Q1H [facility] Rx#: [id number] Oral 0 0 0 Output: Urine 300 300 300 Other: Voiding Method Toilet Toilet Urinal Urinal - Labs CBC & Chem 7: 07/04/22 07:22 07/04/22 07:22 Labs: Abnormal Lab Results - Last 24 Hours (Table) 07/03/22 07/03/22 07/03/22 Range/Units 07:49 07:49 15:22 WBC 14.02 H (4.50-10.00) X 10*3/uL MCV 98.2 H (80.0-97.0) fL MCH 33.3 H (27.0-32.0) pg Immature Gran # 0.07 H (0.00-0.04) X 10*3/uL Neutrophils # 11.00 H (1.80-7.70) X 10*3/uL Monocytes # 1.52 H (0.20-1.00) X 10*3/uL Eosinophils # 0.01 L (0.04-0.35) X 10*3/uL APTT (22.0-30.0) sec Sodium 132 L (135-145) mmol/L Chloride 94 L (96-109) mmol/L Creatinine (0.66-1.25) mg/dL Est GFR (CKD-EPI)AfAm 52.4 L (60.0-200.0) Est GFR (CKD-EPI)NonAf 45.2 L (60.0-200.0) BUN/Creatinine Ratio 11.93 L (12.00-20.00) Ratio Glucose 126 H (70-110) mg/dL Troponin I 0.048 H* (0.000-0.034) ng/mL 07/03/22 07/03/22 07/04/22 Range/Units 15:29 23:01 07:22 WBC (4.50-10.00) X 10*3/uL MCV (80.0-97.0) fL MCH (27.0-32.0) pg Immature Gran # (0.00-0.04) X 10*3/uL Neutrophils # (1.80-7.70) X 10*3/uL Monocytes # (0.20-1.00) X 10*3/uL Eosinophils # (0.04-0.35) X 10*3/uL APTT 38.3 H 57.9 H (22.0-30.0) sec Sodium 131 L (135-145) mmol/L Chloride 95 L (96-109) mmol/L Creatinine 1.42 H (0.66-1.25) mg/dL Est GFR (CKD-EPI)AfAm (60.0-200.0) Est GFR (CKD-EPI)NonAf (60.0-200.0) BUN/Creatinine Ratio (12.00-20.00) Ratio Glucose (70-110) mg/dL Troponin I (0.000-0.034) ng/mL 07/04/22 07/04/22 Range/Units 07:22 07:22 WBC (4.50-10.00) X 10*3/uL MCV 101.6 H (80.0-97.0) fL MCH (27.0-32.0) pg Immature Gran # (0.00-0.04) X 10*3/uL Neutrophils # (1.80-7.70) X 10*3/uL Monocytes # (0.20-1.00) X 10*3/uL Eosinophils # (0.04-0.35) X 10*3/uL APTT 47.6 H (22.0-30.0) sec Sodium (135-145) mmol/L Chloride (96-109) mmol/L Creatinine (0.66-1.25) mg/dL Est GFR (CKD-EPI)AfAm (60.0-200.0) Est GFR (CKD-EPI)NonAf (60.0-200.0) BUN/Creatinine Ratio (12.00-20.00) Ratio Glucose (70-110) mg/dL Troponin I (0.000-0.034) ng/mL Assessment and Plan Assessment: Acute occlusion of the left renal artery stent graft Acute kidney injury, secondary to above and contrast Elevated troponin, acute coronary syndrome has resolved. Recent AAA repair Nicotine dependence Hypertension Hyperlipidemia Hypothyroidism History of coronary artery disease History of osteoarthritis Status post permanent pacemaker Plan: This is a pleasant 76 years old male who presents with suspected left renal artery stent occlusion Start Eliquis Vascular surgery consult, who recommended to continue with dual antiplatelet therapy and Eliquis, no need for surgical intervention Pain management Labs and medication were reviewed.. Continue same treatment. Continue with symptomatic treatment. Resume home medication. Monitor lytes and vitals. DVT and GI prophylaxis. Further recommendations as per clinical course of the patient DVT prophylaxis: heparin GI Prophylaxis: Pepcid PT/OT: Pending Prognosis is guarded
[2022-07-04 18:37] LABS: Appearance,Urine Clear (Clear); Bilirubin,Urine Negative (Negative); Blood,Urine Small (Negative); Color,Urine Yellow; Glucose,Urine (UA) Negative (Negative); Ketones,Urine Negative (Negative); Leukocyte Esterase,Urine Small (Negative); Mucus,Urine Rare /hpf; Nitrite,Urine Negative (Negative); Protein,Urine 1+ (Negative); RBC,Urine 3 /hpf (0-5); Specific Gravity,Urine 1.019 (1.001-1.035); Squamous Epithelial Cell,Urine <1 /hpf (0-4); Urobilinogen,Urine <2.0 mg/dL (<2.0); WBC,Urine 22 /hpf (0-5)
[2022-07-04] MEDS: SODIUM CHLORIDE TAB 1 GM TAB PO SCH (20:31)
[2022-07-04] MEDS: ATORVASTATIN 80 MG TAB PO SCH (20:32)
[2022-07-05] MEDS: HYDROmorphone 1 MG/ML 1 ML SYRINGE IVP PRN ×2 (04:43→09:04)
[2022-07-05] MEDS: PANTOPRAZOLE 40 MG TABLET PO SCH (06:37)
[2022-07-05] MEDS: LEVOTHYROXINE 50 MCG TAB PO SCH (06:37)
[2022-07-05] MEDS: FORMOTEROL FUMARATE 20 MCG/2 ML NEBU INHALATION SCH ×2 (08:27→20:24)
[2022-07-05] MEDS: IPRATROPIUM 0.5 MG/2.5 ML NEBU INHALATION SCH ×4 (08:27→20:24)
[2022-07-05 08:43] LABS: Basophils # (A) 0.1 k/uL (0-0.2); Basophils % (A) 1 %; Eosinophils # (A) 0.2 k/uL (0-0.7); Eosinophils % (A) 3 %; HCT 38.8 % (39.0-53.0); Lymphocytes # (A) 1.1 k/uL (1.0-4.8); Lymphocytes % (A) 17 %; MCH 33.9 pg (25.0-35.0); MCHC 33.6 g/dL (31.0-37.0); MCV 100.7 fL (80.0-100.0); Mean Platelet Volume 8.3; Monocytes # (A) 0.5 k/uL (0-1.0); Monocytes % (A) 9 %; Neutrophils # (A) 4.4 k/uL (1.3-7.7); Neutrophils % (A) 68 %; Platelet Count 261 k/uL (150-450); RBC 3.85 m/uL (4.30-5.90); RDW 12.8 % (11.5-15.5); WBC 6.4 k/uL (3.8-10.6)
[2022-07-05 08:57] LABS: Magnesium 1.8 mg/dL (1.6-2.3); Potassium 3.5 mmol/L (3.5-5.1)
[2022-07-05] MEDS: amLODIPine 5 MG TAB PO SCH (09:02)
[2022-07-05] MEDS: DICYCLOMINE 10 MG CAP PO SCH (09:02)
[2022-07-05] MEDS: ISOSORBIDE MONONITRATE ER 60 MG TAB.ER.24H PO SCH (09:02)
[2022-07-05] MEDS: APIXABAN 5 MG TAB PO SCH ×2 (09:02→21:38)
[2022-07-05] MEDS: ASPIRIN 81 MG PO SCH (09:02)
[2022-07-05] MEDS: SODIUM CHLORIDE TAB 1 GM TAB PO SCH ×2 (09:03→21:38)
[2022-07-05] MEDS: CLOPIDOGREL 75 MG TAB PO SCH (09:03)
[2022-07-05] MEDS: METOPROLOL SUCCINATE (ER) 50 MG TAB.ER.24H PO SCH (09:03)
[2022-07-05] MEDS: polyethylene glycoL 3350 17 GM POWD.PACK PO SCH (09:03)
[2022-07-05] MEDS: SENNOSIDES 8.6 MG TAB PO SCH (09:03)
[2022-07-05] MEDS: FAMOTIDINE 20 MG TAB PO SCH (09:03)
[2022-07-05] MEDS: NICOTINE 21MG/24HR PATCH TRANSDERM SCH (09:05)
--- NOTE | 2022-07-05 12:37 | P.PN ---
Subjective This is a pleasant 76 years old male with past medical history of coronary artery disease, Hyperlipidemia, Hypertension, Osteoarthritis (OA), Syncope, hypothyroidism, irregular heartbeat status post pacemaker, nicotine dependence Patient presents because of acute left flank pain at [facility]. Patient states that his pain was 10/10 in severity on admission, felt like sharp like a knife. This starts on the left flank and the back and turns around to the front of the abdomen. No radiation to the genitalia. He denies chest pain or dyspnea. No dysuria. No diarrhea. No headache or weakness of numbness. He smokes about 1 pack per day and he was consulted and agrees to quit and nicotine patch. Drinks alcohol occlusion only, no illicit drugs [facility] at [facility] Showing Sodium 135, Potassium 3.7, Creatinine 1.3 Urine drug screen was positive for cannabinoid, CBC showing mildly elevated WBC 11.2, hemoglobin 14.4, platelet 334. Urinalysis showing trace 1+ protein, INR 0.9 CT of the abdomen and pelvis with IV contrast: Diffusely hypoattenuated liver, adenomatous hypertrophic changes of the adrenal gland, no bowel obstruction no free fluid, aortic stent graft is patent without evidence of endoleak. There is left probably renal left artery stent graft which appears occluded. This findings of from 05/22/2022. There is moderate to severe atherosclerosis of the arterial vasculature., This is consistent with vascular occlusion of the left renal artery stent graft 07/04/2022 Patient is awake and alert however he is still complaining from significant pain in the left flank, Dilaudid 1 mg is a started. And surgery team recommended no surgical intervention. Currently he is kept on Eliquis and heparin drip stopped, continued on aspirin and Plavix. Creatinine is also elevated 1.5-1.4, most likely secondary to renal artery stenosis and contrast, patient is started on sodium bicarb. Monitor flaps 07/05/2022 Patient still complaining of from left flank tenderness and systolic attending Dilaudid 2 mg IV every 2-3 hours, patient looks controlled with this medication. Denies any specific complaint and he was asking when he can go home, explained to the patient is not ready for discharge and he agrees to stay. Creatinine is stable since admission 1.4. Sodium 131. Is currently on Eliquis for his new onset A. fib, also he is on aspirin and Plavix, Check renal artery duplex on Thursday he has low-grade fever 99.7, urine analysis is with the abnormal, we going to recheck his urine analysis. Also check a bladder scan, discussed with the bedside nurse. Objective - Vital Signs Vital signs: Vital Signs Temp 98.1 F 07/05/22 08:47 Pulse 57 L 07/05/22 08:47 Resp 17 07/05/22 08:47 BP 150/83 07/05/22 08:47 Pulse Ox 98 07/05/22 08:47 FiO2 Intake & Output 07/04/22 07/05/22 07/05/22 18:59 06:59 18:59 Intake Total 360 240 Output Total 300 200 Balance 60 -200 240 Intake: Oral 360 240 Output: Urine 300 200 Other: Voiding Method Toilet Toilet Toilet Urinal Urinal Urinal # Voids 1 - Exam GENERAL: The patient is alert and oriented x3, not in any acute distress. Well developed, well nourished. HEENT: Pupils are round and equally reacting to light. EOMI. No scleral icterus. No conjunctival pallor. Normocephalic, atraumatic. No pharyngeal erythema. No thyromegaly. CARDIOVASCULAR: S1 and S2 present. No murmurs, rubs, or gallops. PULMONARY: Chest is clear to auscultation, no wheezing or crackles. -ABDOMEN: Soft, left flank tenderness, nondistended, normoactive bowel sounds. No palpable organomegaly. MUSCULOSKELETAL: No joint swelling or deformity. EXTREMITIES: No cyanosis, clubbing, or pedal edema. NEUROLOGICAL: Gross neurological examination did not reveal any focal deficits. SKIN: No rashes. no petechiae. - Labs CBC & Chem 7: 07/05/22 08:21 07/05/22 08:21 Labs: Abnormal Lab Results - Last 24 Hours (Table) 07/04/22 07/05/22 07/05/22 Range/Units 18:33 08: 08:21 RBC 3.85 L (4.30-5.90) m/uL Hct 38.8 L (39.0-53.0) % MCV 100.7 H (80.0-100.0) fL Sodium 131 L (137-145) mmol/L Chloride 96 L (98-107) mmol/L Creatinine 1.44 H (0.66-1.25) mg/dL Glucose 126 H (74-99) mg/dL Urine Protein 1+ H (Negative) Urine Blood Small H (Negative) Ur Leukocyte Esterase Small H (Negative) Urine WBC 22 H (0-5) /hpf Urine Mucus Rare H (None) /hpf Assessment and Plan Assessment: Acute occlusion of the left renal artery stent graft Acute kidney injury, secondary to above and contrast New-onset A. fib with rate controlled. Started on eliquis Elevated troponin, acute coronary syndrome has ruled out. Recent AAA repair Nicotine dependence Hypertension Hyperlipidemia Hypothyroidism History of coronary artery disease History of osteoarthritis Status post permanent pacemaker Plan: This is a pleasant 76 years old male who presents with suspected left renal artery stent occlusion Start Eliquis Vascular surgery consult, who recommended to continue with dual antiplatelet therapy and Eliquis, no need for surgical intervention Pain management Check renal artery duplex Monitor temperature and check urinalysis and bladder scan Labs and medication were reviewed.. Continue same treatment. Continue with symptomatic treatment. Resume home medication. Monitor lytes and vitals. DVT and GI prophylaxis. Further recommendations as per clinical course of the patient DVT prophylaxis: eliquis GI Prophylaxis: Pepcid PT/OT: Pending Prognosis is guarded
--- NOTE | 2022-07-05 13:50 | P.PN ---
Subjective Progress Note Date: 07/05/22 PROGRESS NOTE The patient is a 76-year-old male with known history of paroxysmal atrial fibrillation, permanent pacemaker implantation, status post abdominal aortic aneurysm repair who presented with flank pain and occlusion of his renal branch. He's feeling better today. He still has some flank pain but not this severe. He denies any dizziness or any further chest discomfort rated he denies any naus ea or vomiting. His appetite is stable. He has mild CAD by cardiac catheterization in 2020. Medications: Amlodipine 5 mg daily , Aspirin once a day, Plavix 75 mg daily, Lipitor 80 mg daily, isosorbide 60 mg daily, metoprolol succinate 50 mg daily, Imitrex,Eliquis milligrams twice a day PHYSICAL EXAMINATION: Blood pressure 149/70 heart rate 55 LUNGS: Clear to auscultation HEART: Regular rate and rhythm, S1, S2. No S3. systolic ejection murmur ABDOMEN: Soft, mild flank discomfort, no organomegaly EXTREMETIES: No edema LAB: BUN 16, creatinine 1.44, hemoglobin 13 IMPRESSION: 1. Occlusion of the left renal artery branch with discomfort, improving 2. Paroxysmal atrial fibrillation 3. Status post abdominal aortic aneurysm repair 4. Post-pacemaker implantation PLAN: 1. Stop aspirin, the patient is on triple anticoagulation 2. Continue other medications 3. Follow her renal functions 4. Increase physical activity Objective - Vital Signs Vital signs: Vital Signs Temp 99.7 F H 07/05/22 12:19 Pulse 49 L 07/05/22 12:19 Resp 17 07/05/22 12:19 BP 149/73 07/05/22 12:19 Pulse Ox 93 L 07/05/22 12:19 FiO2 Intake & Output 07/04/22 07/05/22 07/05/22 18:59 06:59 18:59 Intake Total 360 240 Output Total 300 200 Balance 60 -200 240 Intake: Oral 360 240 Output: Urine 300 200 Other: Voiding Method Toilet Toilet Toilet Urinal Urinal Urinal # Voids 1 - Labs CBC & Chem 7: 07/05/22 08:21 07/05/22 08:21 Labs: Abnormal Lab Results - Last 24 Hours (Table) 07/04/22 07/05/22 07/05/22 Range/Units 18:33 08:21 08:21 RBC 3.85 L (4.30-5.90) m/uL Hct 38.8 L (39.0-53.0) % MCV 100.7 H (80.0-100.0) fL Sodium 131 L (137-145) mmol/L Chloride 96 L (98-107) mmol/L Creatinine 1.44 H (0.66-1.25) mg/dL Glucose 126 H (74-99) mg/dL Urine Protein 1+ H (Negative) Urine Blood Small H (Negative) Ur Leukocyte Esterase Small H (Negative) Urine WBC 22 H (0-5) /hpf Urine Mucus Rare H (None) /hpf
--- NOTE | 2022-07-05 13:54 | P.PN ---
Subjective Progress Note Date: 07/05/22 Follow-up for acute kidney injury. Lying comfortable in bed no nausea vomiting diarrhea. Left flank pain better. Objective - Vital Signs Vital signs: Vital Signs Temp 99.7 F H 07/05/22 12:19 Pulse 49 L 07/05/22 12:19 Resp 17 07/05/22 12:19 BP 149/73 07/05/22 12:19 Pulse Ox 93 L 07/05/22 12:19 FiO2 Intake & Output 07/04/22 07/05/22 07/05/22 18:59 06:59 18:59 Intake Total 360 240 Output Total 300 200 Balance 60 -200 240 Intake: Oral 360 240 Output: Urine 300 200 Other: Voiding Method Toilet Toilet Toilet Urinal Urinal Urinal # Voids 1 - Exam No acute distress S1-S2 heard Lungs clear No edema - Labs CBC & Chem 7: 07/05/22 08:21 07/05/22 08:21 Labs: Abnormal Lab Results - Last 24 Hours (Table) 07/04/22 07/05/22 07/05/22 Range/Units 18:33 08:21 08:21 RBC 3.85 L (4.30-5.90) m/uL Hct 38.8 L (39.0-53.0) % MCV 100.7 H (80.0-100.0) fL Sodium 131 L (137-145) mmol/L Chloride 96 L (98-107) mmol/L Creatinine 1.44 H (0.66-1.25) mg/dL Glucose 126 H (74-99) mg/dL Urine Protein 1+ H (Negative) Urine Blood Small H (Negative) Ur Leukocyte Esterase Small H (Negative) Urine WBC 22 H (0-5) /hpf Urine Mucus Rare H (None) /hpf Assessment and Plan Assessment: #1 acute kidney injury suspect secondary to renal artery stenosis/contrast associated. Baseline creatinine 0.9 MG per DL. 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 Seems to be new baseline. -Urine analysis pyuria. But no symptoms #2 renal ultrasound pending. #3 continue with salt tablets 1 g twice a day #4 stable from nephrology for discharge to be followed up in the office in 2-3 weeks.
[2022-07-05 15:07] LABS: Appearance,Urine Clear (Clear); Bilirubin,Urine Negative (Negative); Blood,Urine Small (Negative); Color,Urine Yellow; Glucose,Urine (UA) Negative (Negative); Ketones,Urine Negative (Negative); Leukocyte Esterase,Urine Negative (Negative); Mucus,Urine Rare /hpf; Nitrite,Urine Negative (Negative); PH, Urine 6.5 (5.0-8.0); Protein,Urine 1+ (Negative); RBC,Urine 4 /hpf (0-5); WBC,Urine 5 /hpf (0-5)
--- NOTE | 2022-07-05 17:15 | P.PN ---
Subjective Progress Note Date: 07/05/22 Principal diagnosis: left renal stent occlusion Patient seen and examined. States pain is improving since hospitalization. Still having 7/10 pain at the left flank area. He states he wants to go home and "will be going home by Thursday". He denies any fevers, chills, chest pain or shortness of breath. His labs have stabilized since admission as well. Objective - Vital Signs Vital signs: Vital Signs Temp 97.4 F L 07/05/22 16:44 Pulse 53 L 07/05/22 16:44 Resp 17 07/05/22 16:44 BP 126/66 07/05/22 16:44 Pulse Ox 98 07/05/22 16:44 FiO2 Intake & Output 07/04/22 07/05/22 07/05/22 18:59 06:59 18:59 Intake Total 360 358 Output Total 300 200 Balance 60 -200 358 Intake: Oral 360 358 Output: Urine 300 200 Other: Voiding Method Toilet Toilet Toilet Urinal Urinal Urinal # Voids 1 1 - Constitutional General appearance: Present: average body habitus, cooperative - EENT Eyes: Present: PERRLA - Respiratory Respiratory: bilateral: CTA - Cardiovascular Rhythm: regular - Gastrointestinal Gastrointestinal Comment(s): non tender. Left flank with tenderness to palpation. General gastrointestinal: Absent: absent bowel sounds, decreased bowel sounds, distended - Psychiatric Psychiatric: Present: A&O x's 3, appropriate affect, intact judgment & insight - Labs CBC & Chem 7: 07/05/22 08:21 07/05/22 08:21 Labs: Abnormal Lab Results - Last 24 Hours (Table) 07/04/22 07/05/22 07/05/22 Range/Units 18:33 08:21 08:21 RBC 3.85 L (4.30-5.90) m/uL Hct 38.8 L (39.0-53.0) % MCV 100.7 H (80.0-100.0) fL Sodium 131 L (137-145) mmol/L Chloride 96 L (98-107) mmol/L Creatinine 1.44 H (0.66-1.25) mg/dL Glucose 126 H (74-99) mg/dL Urine Protein 1+ H (Negative) Urine Blood Small H (Negative) Ur Leukocyte Esterase Small H (Negative) Urine WBC 22 H (0-5) /hpf Urine Mucus Rare H (None) /hpf 07/05/22 Range/Units 14:40 RBC (4.30-5.90) m/uL Hct (39.0-53.0) % MCV (80.0-100.0) fL Sodium (137-145) mmol/L Chloride (98-107) mmol/L Creatinine (0.66-1.25) mg/dL Glucose (74-99) mg/dL Urine Protein 1+ H (Negative) Urine Blood Small H (Negative) Ur Leukocyte Esterase (Negative) Urine WBC (0-5) /hpf Urine Mucus Rare H (None) /hpf Assessment and Plan Assessment: 1. Left renal artery stent occlusion 2. Acute renal injury secondary to #1 3. History of EVAR with left renal artery snorkel stenting Plan: No vascular surgical intervention. Continue pain control. Follow up in the office in 2 weeks.
[2022-07-05] MEDS: oxyCODONE-APAP 10-325MG 1 EACH TAB PO PRN ×2 (19:36→23:52)
[2022-07-05] MEDS: ATORVASTATIN 80 MG TAB PO SCH (21:38)
[2022-07-06 05:21] VITALS: RESP 16
[2022-07-06] MEDS: oxyCODONE-APAP 10-325MG 1 EACH TAB PO PRN ×2 (05:22→10:54)
[2022-07-06] MEDS: PANTOPRAZOLE 40 MG TABLET PO SCH (06:56)
[2022-07-06] MEDS: LEVOTHYROXINE 50 MCG TAB PO SCH (06:56)
[2022-07-06] MEDS: polyethylene glycoL 3350 17 GM POWD.PACK PO SCH (07:41)
[2022-07-06] MEDS: FAMOTIDINE 20 MG TAB PO SCH (07:43)
[2022-07-06] MEDS: ISOSORBIDE MONONITRATE ER 60 MG TAB.ER.24H PO SCH (07:43)
[2022-07-06] MEDS: APIXABAN 5 MG TAB PO SCH (07:43)
[2022-07-06] MEDS: DICYCLOMINE 10 MG CAP PO SCH (07:43)
[2022-07-06] MEDS: SENNOSIDES 8.6 MG TAB PO SCH (07:43)
[2022-07-06] MEDS: SODIUM CHLORIDE TAB 1 GM TAB PO SCH (07:43)
[2022-07-06] MEDS: amLODIPine 5 MG TAB PO SCH (07:44)
[2022-07-06] MEDS: CLOPIDOGREL 75 MG TAB PO SCH (07:44)
[2022-07-06] MEDS: NICOTINE 21MG/24HR PATCH TRANSDERM SCH (07:44)
[2022-07-06 08:03] VITALS: TEMP 98.2
[2022-07-06] MEDS: FORMOTEROL FUMARATE 20 MCG/2 ML NEBU INHALATION SCH (08:40)
[2022-07-06] MEDS: IPRATROPIUM 0.5 MG/2.5 ML NEBU INHALATION SCH ×2 (08:40→11:47)
[2022-07-06] MEDS ORDERED: METOPROLOL SUCCINATE (ER) 25 MG TAB.ER.24H PO SCH ×2 (09:00→09:30)
[2022-07-06] MEDS ORDERED: hydrALAZINE HCL 25 MG TAB PO PRN (09:04)
[2022-07-06] MEDS ORDERED: hydrALAZINE HCL 25 MG TAB PO SCH (09:30)
[2022-07-06 09:44] LABS: Basophils # (A) 0.1 k/uL (0-0.2); Basophils % (A) 1 %; Eosinophils # (A) 0.2 k/uL (0-0.7); Eosinophils % (A) 3 %; HCT 38.8 % (39.0-53.0); HGB 12.9 gm/dL (13.0-17.5); Lymphocytes # (A) 1.1 k/uL (1.0-4.8); Lymphocytes % (A) 16 %; MCH 33.7 pg (25.0-35.0); MCHC 33.3 g/dL (31.0-37.0); Mean Platelet Volume 7.7; Monocytes # (A) 0.7 k/uL (0-1.0); Monocytes % (A) 10 %; Neutrophils # (A) 4.5 k/uL (1.3-7.7); Neutrophils % (A) 68 %; Platelet Count 302 k/uL (150-450); RBC 3.84 m/uL (4.30-5.90); RDW 12.8 % (11.5-15.5); WBC 6.7 k/uL (3.8-10.6)
[2022-07-06 09:45] LABS: Appearance,Urine Clear (Clear); Bilirubin,Urine Negative (Negative); Blood,Urine Trace (Negative); Color,Urine Light Yellow; Glucose,Urine (UA) Negative (Negative); Hyaline Casts,Urine 1 /lpf (0-2); Ketones,Urine Negative (Negative); Leukocyte Esterase,Urine Negative (Negative); Nitrite,Urine Negative (Negative); PH, Urine 7.5 (5.0-8.0); Protein,Urine Trace (Negative); RBC,Urine 2 /hpf (0-5); Specific Gravity,Urine 1.013 (1.001-1.035); Urobilinogen,Urine <2.0 mg/dL (<2.0); WBC,Urine 2 /hpf (0-5)
[2022-07-06 10:04] LABS: Magnesium 1.7 mg/dL (1.6-2.3); Potassium 3.5 mmol/L (3.5-5.1)
--- NOTE | 2022-07-06 10:19 | P.PN ---
Subjective This is a pleasant 76 years old male with past medical history of coronary artery disease, Hyperlipidemia, Hypertension, Osteoarthritis (OA), Syncope, hypothyroidism, irregular heartbeat status post pacemaker, nicotine dependence Patient presents because of acute left flank pain at [facility]. Patient states that his pain was 10/10 in severity on admission, felt like sharp like a knife. This starts on the left flank and the back and turns around to the front of the abdomen. No radiation to the genitalia. He denies chest pain or dyspnea. No dysuria. No diarrhea. No headache or weakness of numbness. He smokes about 1 pack per day and he was consulted and agrees to quit and nicotine patch. Drinks alcohol occlusion only, no illicit drugs reviewed at the Medical Centers Showing Sodium 135, Potassium 3.7, Creatinine 1.3 Urine drug screen was positive for cannabinoid, CBC showing mildly elevated WBC 11.2, hemoglobin 14.4, platelet 334. Urinalysis showing trace 1+ protein, INR 0.9 CT of the abdomen and pelvis with IV contrast: Diffusely hypoattenuated liver, adenomatous hypertrophic changes of the adrenal gland, no bowel obstruction no free fluid, aortic stent graft is patent without evidence of endoleak. There is left probably renal left artery stent graft which appears occluded. This findings of from 05/22/2022. There is moderate to severe atherosclerosis of the arterial vasculature., This is consistent with vascular occlusion of the left renal artery stent graft 07/04/2022 Patient is awake and alert however he is still complaining from significant pain in the left flank, Dilaudid 1 mg is a started. And surgery team recommended no surgical intervention. Currently he is kept on Eliquis and heparin drip stopped, continued on aspirin and Plavix. Creatinine is also elevated 1.5-1.4, most likely secondary to renal artery stenosis and contrast, patient is started on sodium bicarb. Monitor flaps 07/05/2022 Patient still complaining of from left flank tenderness and systolic attending Dilaudid 2 mg IV every 2-3 hours, patient looks controlled with this medication. Denies any specific complaint and he was asking when he can go home, explained to the patient is not ready for discharge and he agrees to stay. Creatinine is stable since admission 1.4. Sodium 131. Is currently on Eliquis for his new onset A. fib, also he is on aspirin and Plavix, Check renal artery duplex on Thursday he has low-grade fever 99.7, urine analysis is with the abnormal, we going to recheck his urine analysis. Also check a bladder scan, discussed with the bedside nurse. 07/06/2020 Patient left flank pain is improving with Percocet, no need for Dilaudid, his pain is somewhat 5/10 this morning, he is developing bradycardia secondary to opioids medication. Heart rate a drop 30s yesterday. Because of that we lowered his metoprolol 50 mg down to 12.5 mg and added hydralazine 25 mg twice a day for better blood pressure control, blood pressure this morning 174/89. And he is also on Norvasc 5 mg. Creatinine improving down to 1.3, ophthalmology surgical technician on the case, pending venous Doppler ultrasound tomorrow. Regarding his atrial fibrillation he is on Eliquis and Plavix. Aspirin was discontinued prior marine structural designer recommendation for high risk of bleeding. Check labs tomorrow morning Plan discussed with the patient and he is agreeable Objective - Vital Signs Vital signs: Vital Signs Temp 98.2 F 07/06/22 07:35 Pulse 63 07/06/22 08:29 Resp 16 07/06/22 07:35 BP 174/89 07/06/22 08:29 Pulse Ox 97 07/06/22 08:29 FiO2 Intake & Output 07/05/22 07/06/22 07/06/22 18:59 06:59 18:59 Intake Total 358 118 Output Total 200 300 Balance 358 -200 -182 Intake: Oral 358 118 Output: Urine 200 300 Other: Voiding Method Toilet Toilet Toilet Urinal Urinal Urinal # Voids 1 - Exam GENERAL: The patient is alert and oriented x3, not in any acute distress. Well developed, well nourished. HEENT: Pupils are round and equally reacting to light. EOMI. No scleral icterus. No conjunctival pallor. Normocephalic, atraumatic. No pharyngeal erythema. No thyromegaly. CARDIOVASCULAR: S1 and S2 present. No murmurs, rubs, or gallops. PULMONARY: Chest is clear to auscultation, no wheezing or crackles. -ABDOMEN: Soft, left flank tenderness, nondistended, normoactive bowel sounds. No palpable organomegaly. MUSCULOSKELETAL: No joint swelling or deformity. EXTREMITIES: No cyanosis, clubbing, or pedal edema. NEUROLOGICAL: Gross neurological examination did not reveal any focal deficits. SKIN: No rashes. no petechiae. - Labs CBC & Chem 7: 07/06/22 08:33 07/06/22 08:33 Labs: Abnormal Lab Results - Last 24 Hours (Table) 07/05/22 07/06/22 07/06/22 Range/Units 14:40 08:14 08:33 RBC 3.84 L (4.30-5.90) m/uL Hgb 12.9 L (13.0-17.5) gm/dL Hct 38.8 L (39.0-53.0) % MCV 101.0 H (80.0-100.0) fL Sodium (137-145) mmol/L Chloride (98-107) mmol/L Creatinine (0.66-1.25) mg/dL Glucose (74-99) mg/dL Urine Protein 1+ H Trace H (Negative) Urine Blood Small H Trace H (Negative) Urine Mucus Rare H (None) /hpf 07/06/22 Range/Units 08:33 RBC (4.30-5.90) m/uL Hgb (13.0-17.5) gm/dL Hct (39.0-53.0) % MCV (80.0-100.0) fL Sodium 132 L (137-145) mmol/L Chloride 97 L (98-107) mmol/L Creatinine 1.35 H (0.66-1.25) mg/dL Glucose 107 H (74-99) mg/dL Urine Protein (Negative) Urine Blood (Negative) Urine Mucus (None) /hpf Assessment and Plan Assessment: Acute occlusion of the left renal artery stent graft Acute kidney injury, secondary to above and contrast New-onset A. fib with rate controlled. Started on eliquis Elevated troponin, acute coronary syndrome has ruled out. Recent AAA repair Nicotine dependence Hypertension Hyperlipidemia Hypothyroidism History of coronary artery disease History of osteoarthritis Status post permanent pacemaker Plan: This is a pleasant 76 years old male who presents with suspected left renal art marcos stent occlusion Continue with Eliquis Vascular surgery consult, who recommended to continue with dual antiplatelet therapy and Eliquis, no need for surgical intervention Pain management Check renal artery duplex No metoprolol 12.5, at hydralazine and continue with Norvasc Monitor temperature and check urinalysis and bladder scan Labs and medication were reviewed.. Continue same treatment. Continue with symptomatic treatment. Resume home medication. Monitor lytes and vitals. DVT and GI prophylaxis. Further recommendations as per clinical course of the patient DVT prophylaxis: eliquis GI Prophylaxis: Pepcid PT/OT: Pending
[2022-07-06 11:57] VITALS: BP 150/80; PULSE 59
--- NOTE | 2022-07-06 13:18 | P.PN ---
Subjective Progress Note Date: 07/06/22 Principal diagnosis: left renal stent occlusion Patient seen and examined. States pain is improving since yesterday. He states they have a test scheduled tomorrow and he wants to go home afterwards. He denies any fevers, chills, chest pain or shortness of breath. Objective - Vital Signs Vital signs: Vital Signs Temp 98.2 F 07/06/22 07:35 Pulse 59 L 07/06/22 13:13 Resp 16 07/06/22 11:57 BP 150/80 07/06/22 11:57 Pulse Ox 98 07/06/22 11:57 FiO2 Intake & Output 07/05/22 07/06/22 07/06/22 18:59 06:59 18:59 Intake Total 358 118 Output Total 200 300 Balance 358 -200 -182 Intake: Oral 358 118 Output: Urine 200 300 Other: Voiding Method Toilet Toilet Toilet Urinal Urinal Urinal # Voids 1 - Exam left flank tenderness to palpation - Constitutional General appearance: Present: average body habitus, cooperative, no acute distress - EENT Eyes: Present: PERRLA - Respiratory Respiratory: bilateral: CTA - Cardiovascular Rhythm: regular - Gastrointestinal General gastrointestinal: Present: soft. Absent: absent bowel sounds, decreased bowel sounds, distended - Psychiatric Psychiatric: Present: A&O x's 3, appropriate affect, intact judgment & insight - Labs CBC & Chem 7: 07/06/22 08:33 07/06/22 08:33 Labs: Abnormal Lab Results - Last 24 Hours (Table) 07/05/22 07/06/22 07/06/22 Range/Units 14:40 08:14 08:33 RBC 3.84 L (4.30-5.90) m/uL Hgb 12.9 L (13.0-17.5) gm/dL Hct 38.8 L (39.0-53.0) % MCV 101.0 H (80.0-100.0) fL Sodium (137-145) mmol/L Chloride (98-107) mmol/L Creatinine (0.66-1.25) mg/dL Glucose (74-99) mg/dL Urine Protein 1+ H Trace H (Negative) Urine Blood Small H Trace H (Negative) Urine Mucus Rare H (None) /hpf 07/06/22 Range/Units 08:33 RBC (4.30-5.90) m/uL Hgb (13.0-17.5) gm/dL Hct (39.0-53.0) % MCV (80.0-100.0) fL Sodium 132 L (137-145) mmol/L Chloride 97 L (98-107) mmol/L Creatinine 1.35 H (0.66-1.25) mg/dL Glucose 107 H (74-99) mg/dL Urine Protein (Negative) Urine Blood (Negative) Urine Mucus (None) /hpf Assessment and Plan Assessment: 1. Left renal artery stent occlusion 2. Acute renal injury secondary to #1 3. History of EVAR with left renal artery snorkel stenting Plan: No vascular surgical intervention. Agree with renal duplex. Continue pain control. Follow up in the office in 2 weeks.
--- NOTE | 2022-07-06 13:44 | P.PN ---
Subjective Progress Note Date: 07/06/22 Follow-up for acute kidney injury. Lying comfortable in bed no nausea vomiting diarrhea. Left flank pain better. Objective - Vital Signs Vital signs: Vital Signs Temp 98.2 F 07/06/22 07:35 Pulse 59 L 07/06/22 13:13 Resp 16 07/06/22 11:57 BP 150/80 07/06/22 11:57 Pulse Ox 98 07/06/22 11:57 FiO2 Intake & Output 07/05/22 07/06/22 07/06/22 18:59 06:59 18:59 Intake Total 358 118 Output Total 200 300 Balance 358 -200 -182 Intake: Oral 358 118 Output: Urine 200 300 Other: Voiding Method Toilet Toilet Toilet Urinal Urinal Urinal # Voids 1 - Exam No acute distress S1-S2 heard Lungs clear No edema - Labs CBC & Chem 7: 07/06/22 08:33 07/06/22 08:33 Labs: Abnormal Lab Results - Last 24 Hours (Table) 07/05/22 07/06/22 07/06/22 Range/Units 14:40 08:14 08:33 RBC 3.84 L (4.30-5.90) m/uL Hgb 12.9 L (13.0-17.5) gm/dL Hct 38.8 L (39.0-53.0) % MCV 101.0 H (80.0-100.0) fL Sodium (137-145) mmol/L Chloride (98-107) mmol/L Creatinine (0.66-1.25) mg/dL Glucose (74-99) mg/dL Urine Protein 1+ H Trace H (Negative) Urine Blood Small H Trace H (Negative) Urine Mucus Rare H (None) /hpf 07/06/22 Range/Units 08:33 RBC (4.30-5.90) m/uL Hgb (13.0-17.5) gm/dL Hct (39.0-53.0) % MCV (80.0-100.0) fL Sodium 132 L (137-145) mmol/L Chloride 97 L (98-107) mmol/L Creatinine 1.35 H (0.66-1.25) mg/dL Glucose 107 H (74-99) mg/dL Urine Protein (Negative) Urine Blood (Negative) Urine Mucus (None) /hpf Assessment and Plan Assessment: #1 acute kidney injury suspect secondary to renal artery stenosis/contrast associated. Baseline creatinine 0.9 MG per DL. 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 Seems to be new baseline. -Urine analysis pyuria. But no symptoms #2 renal ultrasound pending. #3 continue with salt tablets 1 g twice a day #4 stable from nephrology for discharge to be followed up in the office in 2-3 weeks.
[2022-07-07] MEDS ORDERED: ERGOCALCIFEROL 1,250 MCG (50,000 IU) CAPSULE PO SCH (09:00)
== END 2022-07-06 14:08 | disposition left against medical advice (07) | DRG 315 ==
LOC: EC 15:25 → 4SSUR 17:42 → 3SCARD 07-03 15:51
PROVIDERS: ADMIT Internal Medicine; ATTEND Internal Medicine
DX: T82.856A Stenosis of peripheral vascular stent, initial encounter (principal); E22.2 Syndrome of inappropriate secretion of antidiuretic hormone; I48.21 Permanent atrial fibrillation; N17.9 Acute kidney failure, unspecified; I70.1 Atherosclerosis of renal artery; Y83.0 Surgical operation with transplant of whole organ as the cause of abnormal reaction of the patient, or of later complication, without mention of misadventure at the time of the procedure; M19.90 Unspecified osteoarthritis, unspecified site; I69.344 Monoplegia of lower limb following cerebral infarction affecting left non-dominant side; Y83.8 Other surgical procedures as the cause of abnormal reaction of the patient, or of later complication, without mention of misadventure at the time of the procedure; I73.9 Peripheral vascular disease, unspecified; I25.2 Old myocardial infarction; Z53.29 Procedure and treatment not carried out because of patient's decision for other reasons; Z79.01 Long term (current) use of anticoagulants; Z79.02 Long term (current) use of antithrombotics/antiplatelets; Z79.82 Long term (current) use of aspirin; I25.10 Atherosclerotic heart disease of native coronary artery without angina pectoris; I10 Essential (primary) hypertension; F41.9 Anxiety disorder, unspecified; F32.A Depression, unspecified; F17.210 Nicotine dependence, cigarettes, uncomplicated; E78.5 Hyperlipidemia, unspecified; Z79.890 Hormone replacement therapy; Z79.899 Other long term (current) drug therapy; Z86.79 Personal history of other diseases of the circulatory system; Z95.0 Presence of cardiac pacemaker; Z85.828 Personal history of other malignant neoplasm of skin
CPT/HCPCS: 80048; 81001; 83735; 84484; 85025; 85610; 85730; 93005; 93306; 96365; 96366; 96375; 99285

== ENCOUNTER → 2022-08-07 | Outpatient (CLI) | payer MEDICARE, OTHER ==
[2022-08-07 08:23] LABS: Potassium 3.4 mmol/L (3.5-5.1)
--- NOTE | 2022-08-07 12:09 | CT ---
EXAMINATION TYPE: CT angio abdomen pelvis DATE OF EXAM: 08/07/2022 COMPARISON: 07/02/2022, 04/08/2022 HISTORY: 77-year-old male I71.4, AAA TECHNIQUE: Contiguous axial scanning of the abdomen and pelvis before and after administration of 100 ml Isovue-370 IV contrast. Pre and postcontrast imaging is performed. Additional delayed scan throu gh the patient's stent graft. Coronal and sagittal reconstructions performed. 3-D reconstructions gen erated on a dedicated independent workstation. CT DLP: 695.8 mGycm Automated exposure control for dose reduction was used. FINDINGS: Right atrial and right ventricular pacer leads. Heart normal size without pericardial effusion. Some increasing interstitial changes in the lower lungs may relate to a generalized atelectasis. Correlate to exclude any acute respiratory symptoms that would warrant follow-up. Emphysematous change. Depend ent atelectasis. No pleural effusion. Couple scattered tiny hepatic cysts are noted. Portal venous system is patent. No biliary ductal dila tation. Gallbladder, spleen, and pancreas within normal limits. Bilateral renal cysts. Minimal complexity with thin internal septations of the cyst at the upper pole right kidney measuring 3.2 cm. Left kidney asymmetrically atrophic with a 5 mm nonobstructive calcul us. No dilated small bowel, free fluid, or free air. No mesenteric or retroperitoneal lymphadenopathy. Moderate stool burden. Normal appendix. No pericolonic inflammatory change. Prostate gland is enlarged measuring 4.4 cm wide. Numerous pelvic fluid. Moderate circumferential blanca dder wall thickening. Patulous right internal canal. No abnormal fluid collection in the pelvis or pe lvic lymphadenopathy. Aortobiiliac endovascular stent graft is redemonstrated. This extends from the level of the celiac ax is. There is a focal short segment fusiform aneurysm mid abdominal aorta just below the takeoff of th e renal arteries measuring up to 5.2 cm versus 5.4 cm, previously. This spans approximately 4.7 cm lo ng. There is long segment dilatation of the mid to distal abdominal aortic ak chin sac up to 5.1 cm versus 5.0 cm, previously. These measurements do not seem to be significantly changed. Portal and ectatic stented right common iliac artery at 1.5 cm unchanged. No stent extending into the left renal artery. The stent does not seem to be significantly opacified. There may be some collateral supply to the left kidney seen on axial image 53. No enhancement seen w ithin the stented left renal artery itself. No abnormal filling of made of sacral contrast is seen. Osteopenia. No osseous destructive process. IMPRESSION: 1. AORTOBIILIAC ENDOVASCULAR STENT GRAFT. NO VISUALIZED ENDOLEAK. 2. THE SHORT SEGMENT (4.7 CM LONG) MID ABDOMINAL AORTIC ANEURYSM IS SIMILAR TO SLIGHTLY SMALLER IN [facility] AT 5.2 CM VERSUS 5.4 CM, PREVIOUSLY. 3. 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 4. WE ALSO NOTE A LEFT RENAL ARTERY STENT. NO ENHANCEMENT IS SEEN WITHIN THE LEFT RENAL ARTERY STENT AND THE LEFT KIDNEY IS BECOMING PROGRESSIVELY MORE ATROPHIC. THERE SEEMS TO BE SOME COLLATERAL SUPPLY TO THE LEFT KIDNEY FROM SMALL RETROPERITONEAL VESSELS. 5. CIRCUMFERENTIAL BLADDER WALL THICKENING COULD REPRESENT CHRONIC BLADDER WALL HYPERTROPHY OR CYSTIT IS. CLINICALLY CORRELATE.
== END | disposition home or self-care (01) ==
LOC: RADCTMAIN 07:36
PROVIDERS: ATTEND Surgery
DX: I71.4 Abdominal aortic aneurysm, without rupture (principal); N26.1 Atrophy of kidney (terminal); N32.89 Other specified disorders of bladder; Z96.0 Presence of urogenital implants
CPT/HCPCS: 80051; 82565; 84520; 36415; 74174; Q9967

== ENCOUNTER 2022-09-08 09:53 | Inpatient (IN) | payer MEDICARE, OTHER ==
[2022-09-08] MEDS ORDERED: ONDANSETRON 4 MG/2 ML VIAL IVP STA (10:53)
[2022-09-08] MEDS ORDERED: SODIUM CHLORIDE 0.9% 500 ML 500 ML IV STA (10:53)
[2022-09-08] MEDS ORDERED: HYDROmorphone 0.5 MG/0.5 ML SYRINGE IVP STA ×2 (10:53→13:02)
[2022-09-08] MEDS ORDERED: FAMOTIDINE 20 MG/2 ML VIAL IV STA (10:57)
--- NOTE | 2022-09-08 10:59 | ED ---
General Adult HPI - General Chief complaint: Abdominal Pain Stated complaint: Vomiting Time Seen by Provider: 09/08/22 10:37 Source: patient, RN notes reviewed Mode of arrival: wheelchair Limitations: no limitations - History of Present Illness Initial comments: Patient is a pleasant 77-year-old male presenting to the emergency department with family with concerns with abdominal discomfort. Patient did have aortic surgery done in May and has been having problems since that time. Patient has been vomiting for the past few weeks. Patient is vomiting a couple times per day. Patient has intermittent constipation. No diarrhea. No fever. Abdominal discomfort is diffuse. - Related Data Home Medications Medication Instructions Recorded Confirmed oxyCODONE HCL/ACETAMINOPHEN 1 tab PO Q6H PRN 07/16/17 07/02/22 [Percocet 10-325 mg] Dicyclomine [Bentyl] 10 mg PO DAILY 01/31/20 07/02/22 Aspirin EC [Ecotrin Low Dose] 81 mg PO DAILY 06/17/21 07/02/22 Levothyroxine Sodium [Synthroid] 50 mcg PO DAILY 06/17/21 07/02/22 Metoprolol Succinate (ER) [Toprol 50 mg PO DAILY 06/17/21 07/02/22 XL] Naloxone HCl [Narcan] 4 mg NASAL ONCE PRN 06/17/21 07/02/22 Nitroglycerin Sl Tabs [Nitrostat] 0.4 mg SUBLINGUAL Q5M PRN 06/17/21 07/02/22 SUMAtriptan succinate [Imitrex] 50 mg PO BID PRN 07/08/21 07/02/22 Apixaban [Eliquis] 5 mg PO DAILY 03/20/22 07/02/22 Ergocalciferol (Vitamin D2) 1,250 mcg PO MO 03/20/22 07/02/22 [Drisdol (50,000 Iu)] Esomeprazole Magnesium [NexIUM] 40 mg PO DAILY 03/20/22 07/02/22 Umeclidinium Brm/Vilanterol Tr 1 puff INHALATION RT-DAILY 03/20/22 07/02/22 [Anoro Ellipta 62.5-25 Mcg INH] amLODIPine [Norvasc] 5 mg PO DAILY 03/20/22 07/02/22 Isosorbide Mononitrate ER [Imdur] 60 mg PO DAILY 05/09/22 07/02/22 Previous Rx's Medication Instructions Recorded Atorvastatin [Lipitor] 80 mg PO HS #90 tab 03/21/22 Clopidogrel [Plavix] 75 mg PO DAILY #30 tab 05/15/22 Sennosides [Senokot] 8.6 mg PO DAILY tab 05/16/22 Sodium Chloride Tab 1 gm PO DAILY 30 Days #30 tab 05/16/22 Allergies Allergy/AdvReac Type Severity Reaction Status Date / Time cefazolin Allergy Rash/Hives Verified 09/08/22 10:07 cefazolin sodium [From Ancef] Allergy Rash/Hives Verified 09/08/22 10:07 morphine AdvReac Nausea & Verified 09/08/22 10:07 Vomiting Review of Systems ROS Statement: Those systems with pertinent positive or pertinent negative responses have been documented in the HPI. ROS Other: All systems not noted in ROS Statement are negative. Constitutional: Denies: fever Eyes: Denies: eye pain ENT: Denies: ear pain Respiratory: Denies: cough Cardiovascular: Denies: chest pain Endocrine: Denies: fatigue Gastrointestinal: Reports: as per HPI, abdominal pain, nausea, vomiting, constipation. Denies: diarrhea Genitourinary: Denies: dysuria Musculoskeletal: Denies: back pain Skin: Denies: rash Neurological: Denies: weakness Past Medical History Past Medical History: Cancer, Chest Pain / Angina, Hyperlipidemia, Hypertension, Myocardial Infarction (AK), Osteoarthritis (OA), Syncope, Thyroid Disorder Additional Past Medical History / Comment(s): AK X2 ("in my 30's), SKIN CA, pain lower spine and legs, rectal bleeding , irregular heart beat, low sodium, see Dr. Fink's H&P. Last Myocardial Infarction Date:: approx 40 yrs ago History of Any Multi-Drug Resistant Organisms: None Reported Past Surgical History: Back Surgery, Heart Catheterization, Hernia Repair, Orthopedic Surgery, Pacemaker, Tonsillectomy Additional Past Surgical History / Comment(s): LAMINECTOMY & PLACEMENT OF NEUROSTIMULATOR, repositioned them later removed, ana catarats, Recent aortic aneurysm repair May 2022. Past Anesthesia/Blood Transfusion Reactions: Motion Sickness Type of Cardiac Device: Permanent Pacemaker Device Placement Date:: October 2017 Past Psychological History: Anxiety, Depression Smoking Status: Current every day smoker Past Alcohol Use History: None Reported Past Drug Use History: Marijuana - Past Family History Mother Family Medical History: Cancer Additional Family Medical History / Comment(s): cva with residual left leg weakness April 2020 Father Family Medical History: Cancer Brother(s) Family Medical History: Cancer General Exam Limitations: no limitations General appearance: alert, in no apparent distress Head exam: Present: normocephalic Eye exam: Present: normal appearance Neck exam: Present: normal inspection Respiratory exam: Present: normal lung sounds bilaterally Cardiovascular Exam: Present: regular rate, normal rhythm Expanded Peripheral pulses: 2+: Posterior Tibialis (R), Posterior Tibialis (L) GI/Abdominal exam: Present: soft, tenderness (Diffuse mild to moderate tenderness), normal bowel sounds. Absent: distended, guarding, rebound, rigid, pulsatile mass Extremities exam: Present: normal inspection Neurological exam: Present: alert Psychiatric exam: Present: normal affect, normal mood Skin exam: Present: normal color Course Vital Signs 09/08/22 09/08/22 10:07 12:35 Temperature 98.2 F Pulse Rate 90 79 Respiratory 18 20 Rate Blood Pressure 182/104 188/107 O2 Sat by Pulse 99 97 Oximetry Medical Decision Making - Medical Decision Making Patient reevaluated. Patient updated on results and plan. [facility] has been paged for admission covering Dr. June. - Lab Data Result diagrams: 09/08/22 10:59 09/08/22 10:59 Lab Results 09/08/22 09/08/22 09/08/22 Range/Units 10:59 10:59 10:59 WBC 6.2 (3.8-10.6) k/uL RBC 3.79 L (4.30-5.90) m/uL Hgb 12.7 L (13.0-17.5) gm/dL Hct 34.1 L (39.0-53.0) % MCV 90.1 D (80.0-100.0) fL MCH 33.6 (25.0-35.0) pg MCHC 37.3 H (31.0-37.0) g/dL RDW 13.6 (11.5-15.5) % Plt Count 263 (150-450) k/uL MPV 7.7 Neutrophils % 76 % Lymphocytes % 13 % Monocytes % 7 % Eosinophils % 1 % Basophils % 1 % Neutrophils # 4.7 (1.3-7.7) k/uL Lymphocytes # 0.8 L (1.0-4.8) k/uL Monocytes # 0.5 (0-1.0) k/uL Eosinophils # 0.0 (0-0.7) k/uL Basophils # 0.0 (0-0.2) k/uL PT 10.2 (9.0-12.0) sec INR 0.9 (<1.2) APTT 24.8 (22.0-30.0) sec Sodium 120 L (137-145) mmol/L Potassium 2.6 L* (3.5-5.1) mmol/L Chloride 82 L (98-107) mmol/L Carbon Dioxide 31 H (22-30) mmol/L Anion Gap 7 mmol/L BUN 8 L (9-20) mg/dL Creatinine 1.11 (0.66-1.25) mg/dL Est GFR (CKD-EPI)AfAm 75 (>60 ml/min/1.73 sqM) Est GFR (CKD-EPI)NonAf 65 (>60 ml/min/1.73 sqM) Glucose 115 H (74-99) mg/dL Calcium 8.4 (8.4-10.2) mg/dL Total Bilirubin 0.6 (0.2-1.3) mg/dL AST 29 (17-59) U/L ALT 15 (4-49) U/L Alkaline Phosphatase 75 (38-126) U/L Total Protein 5.7 L (6.3-8.2) g/dL Albumin 3.4 L (3.5-5.0) g/dL Amylase 46 (30-110) U/L Lipase 43 (23-300) U/L Urine Color Urine Appearance (Clear) Urine pH (5.0-8.0) Ur Specific S[place]is (1.001-1.035) Urine Protein (Negative) Urine Glucose (UA) (Negative) Urine Ketones (Negative) Urine Blood (Negative) Urine Nitrite (Negative) Urine Bilirubin (Negative) Urine Urobilinogen (<2.0) mg/dL Ur Leukocyte Esterase (Negative) Urine RBC (0-5) /hpf Urine WBC (0-5) /hpf Hyaline Casts (0-2) /lpf Urine Mucus (None) /hpf 09/08/22 Range/Units 10:59 WBC (3.8-10.6) k/uL RBC (4.30-5.90) m/uL Hgb (13.0-17.5) gm/dL Hct (39.0-53.0) % MCV (80.0-100.0) fL MCH (25.0-35.0) pg MCHC (31.0-37.0) g/dL RDW (11.5-15.5) % Plt Count (150-450) k/uL MPV Neutrophils % % Lymphocytes % % Monocytes % % Eosinophils % % Basophils % % Neutrophils # (1.3-7.7) k/uL Lymphocytes # (1.0-4.8) k/uL Monocytes # (0-1.0) k/uL Eosinophils # (0-0.7) k/uL Basophils # (0-0.2) k/uL PT (9.0-12.0) sec INR (<1.2) APTT (22.0-30.0) sec Sodium (137-145) mmol/L Potassium (3.5-5.1) mmol/L Chloride (98-107) mmol/L Carbon Dioxide (22-30) mmol/L Anion Gap mmol/L BUN (9-20) mg/dL Creatinine (0.66-1.25) mg/dL Est GFR (CKD-EPI)AfAm (>60 ml/min/1.73 sqM) Est GFR (CKD-EPI)NonAf (>60 ml/min/1.73 sqM) Glucose (74-99) mg/dL Calcium (8.4-10.2) mg/dL Total Bilirubin (0.2-1.3) mg/dL AST (17-59) U/L ALT (4-49) U/L Alkaline Phosphatase (38-126) U/L Total Protein (6.3-8.2) g/dL Albumin (3.5-5.0) g/dL Amylase (30-110) U/L Lipase (23-300) U/L Urine Color Yellow Urine Appearance Clear (Clear) Urine pH 7.5 (5.0-8.0) Ur Specific S[place]is 1.011 (1.001-1.035) Urine Protein 3+ H (Negative) Urine Glucose (UA) Negative (Negative) Urine Ketones Negative (Negative) Urine Blood Trace H (Negative) Urine Nitrite Negative (Negative) Urine Bilirubin Negative (Negative) Urine Urobilinogen <2.0 (<2.0) mg/dL Ur Leukocyte Esterase Negative (Negative) Urine RBC 2 (0-5) /hpf Urine WBC 1 (0-5) /hpf Hyaline Casts 1 (0-2) /lpf Urine Mucus Rare H (None) /hpf - Radiology Data Radiology results: report reviewed (Computed tomography scan abdomen acute process) Disposition Clinical Impression: Hypokalemia, Hyponatremia, Abdominal pain, Vomiting Disposition: ADMITTED IP TO THIS HOSP Is patient prescribed a controlled substance at d/c from ED?: No Referrals: Mario June DO [Primary Care Provider] - 1-2 days Time of Disposition: 13:06
[2022-09-08 11:20] LABS: Basophils % (A) 1 %; Eosinophils % (A) 1 %; HCT 34.1 % (39.0-53.0); HGB 12.7 gm/dL (13.0-17.5); Lymphocytes # (A) 0.8 k/uL (1.0-4.8); Lymphocytes % (A) 13 %; MCH 33.6 pg (25.0-35.0); MCHC 37.3 g/dL (31.0-37.0); Mean Platelet Volume 7.7; Monocytes # (A) 0.5 k/uL (0-1.0); Monocytes % (A) 7 %; Neutrophils # (A) 4.7 k/uL (1.3-7.7); Neutrophils % (A) 76 %; Platelet Count 263 k/uL (150-450); RBC 3.79 m/uL (4.30-5.90); RDW 13.6 % (11.5-15.5); WBC 6.2 k/uL (3.8-10.6)
[2022-09-08 11:32] LABS: INR 0.9 (<1.2); Partial Thromboplastin Time 24.8 sec (22.0-30.0); Prothrombin Time 10.2 sec (9.0-12.0)
[2022-09-08 11:34] LABS: MCV 90.1 fL (80.0-100.0)
[2022-09-08 11:35] LABS: Albumin 3.4 g/dL (3.5-5.0); Calcium 8.4 mg/dL (8.4-10.2); Total Bilirubin 0.6 mg/dL (0.2-1.3); Total Protein 5.7 g/dL (6.3-8.2)
[2022-09-08 11:49] LABS: Potassium 2.6 mmol/L (3.5-5.1)
[2022-09-08 11:52] LABS: Appearance,Urine Clear (Clear); Bilirubin,Urine Negative (Negative); Blood,Urine Trace (Negative); Color,Urine Yellow; Glucose,Urine (UA) Negative (Negative); Hyaline Casts,Urine 1 /lpf (0-2); Ketones,Urine Negative (Negative); Leukocyte Esterase,Urine Negative (Negative); Mucus,Urine Rare /hpf; Nitrite,Urine Negative (Negative); PH, Urine 7.5 (5.0-8.0); Protein,Urine 3+ (Negative); RBC,Urine 2 /hpf (0-5); Specific Gravity,Urine 1.011 (1.001-1.035); Urobilinogen,Urine <2.0 mg/dL (<2.0); WBC,Urine 1 /hpf (0-5)
[2022-09-08] MEDS ORDERED: POTASSIUM CHLORIDE 20 MEQ in WATER FOR INJECTION 1 100ML.BAG IVPB STA (12:06)
[2022-09-08] MEDS ORDERED: POTASSIUM CHLORIDE ER 20 MEQ TAB.ER PO STA (12:06)
--- NOTE | 2022-09-08 12:45 | CT ---
EXAMINATION TYPE: CT abdomen pelvis wo/w con DATE OF EXAM: 09/08/2022 COMPARISON: CTA August 07, 2022 and older studies. HISTORY: Abdominal pain. Vomiting since AAA repair in May. CT DLP: 986.2 mGycm, Automated Exposure Control for Dose Reduction was Utilized. CONTRAST: CT scan of the abdomen and pelvis is performed without oral and without and with IV Contrast, patient injected with 100 mL of Isovue 300. FINDINGS: LUNG BASES: Trace left-sided pleural effusion. Mild left basilar linear atelectasis and/or scarring. LIVER/GB: Gallbladder has distended margins but no surrounding fat stranding. No abnormal biliary dil atation. PANCREAS: No significant abnormality is seen. SPLEEN: No significant abnormality is seen. ADRENALS: Low dense thickening to both adrenal glands consistent with lipid rich hyperplasia redemons trated.. KIDNEYS: Several simple-appearing thin-walled cysts scattered throughout the right kidney and upper p ole level left kidney are redemonstrated. Symmetric cortical medullary uptake on postcontrast images. Central calcifications presumed vascular in etiology bilaterally redemonstrated. BOWEL: Hyperdense material within distal bowel loops suggests product of ingested food product. No kim spicious small or large bowel dilatation. PROSTATE/SEMINAL VESICLES: Upper limits of normal in size. Adjacent scattered pelvic phleboliths are redemonstrated. LYMPH NODES: No greater than 1cm abdominal or pelvic lymph nodes are appreciated. OSSEOUS STRUCTURES: Posterior disc herniations L3-L4 and L4-L5 level are present. OTHER: There is [place] AAA with aortobiiliac stent graft is redemonstrated. AAA measures up to 5.2 cm transversely along distal aspect. Patency is identified on postcontrast images. No enhancement outsi de the stent graft seen to suggest or endoleak. Occluded left renal artery stent redemonstrated. Some collateral perfusion to the left kidney from smaller vessels is once again suspected. IMPRESSION: No bowel obstruction. No suspicious new or acute findings seen to account for patient's s ymptoms.
[2022-09-08] MEDS ORDERED: Potassium Replacement Protocol 1 EACH MISC MISCELLANE PRN ×2 (13:07→17:17)
[2022-09-08] MEDS ORDERED: NALOXONE 0.4 MG/ML 1 ML VIAL IV PRN (13:08)
[2022-09-08] MEDS ORDERED: HYDROmorphone 0.5 MG/0.5 ML SYRINGE IVP PRN (13:08)
[2022-09-08] MEDS ORDERED: ONDANSETRON 4 MG/2 ML VIAL IVP PRN (13:08)
[2022-09-08] MEDS: SODIUM CHLORIDE 0.9% 1,000 ML IV SCH (13:24)
[2022-09-08] MEDS: POTASSIUM CHLORIDE ER 20 MEQ TAB.ER PO SCH ×3 (13:31→16:34)
[2022-09-08] MEDS: HYDROmorphone 1 MG/ML 1 ML SYRINGE IVP PRN (15:57)
[2022-09-08] MEDS ORDERED: Magnesium Replacement Protocol 1 EACH MISC MISCELLANE PRN (17:17)
--- NOTE | 2022-09-08 17:27 | XR ---
EXAMINATION TYPE: XR chest 1V portable DATE OF EXAM: 09/08/2022 5:18 PM COMPARISON: Chest radiographs from 05/15/2022 TECHNIQUE: XR chest 1V portable Portable AP radiograph of the chest. CLINICAL INDICATION:Male, 77 years old with history of Pain; FINDINGS: Lungs/Pleura: Scattered airspace opacities which are new. No evidence of pneumothorax or pleural effu felipa. . Pulmonary vascularity: Unremarkable. Heart/mediastinum: Cardiomediastinal silhouette is unremarkable. Three lead cardiac conduction device overlying the left hemithorax with lead tips projecting over the right ventricle, right atrium and c oronary sinus. Musculoskeletal: No acute osseous pathology. IMPRESSION: New scattered airspace opacities concerning for pneumonia.
[2022-09-08] MEDS: LORazepam 1 MG/0.5 ML VIAL IV PRN (19:40)
[2022-09-09] MEDS: HYDROmorphone 1 MG/ML 1 ML SYRINGE IVP PRN ×5 (00:24→20:41)
[2022-09-09] MEDS: SODIUM CHLORIDE 0.9% 1,000 ML IV SCH ×2 (04:20→16:17)
--- NOTE | 2022-09-09 04:46 | HP ---
HISTORY AND PHYSICAL CHIEF COMPLAINT: Abdominal pain and vomiting. HISTORY OF PRESENT ILLNESS: This 77-year-old gentleman with a past medical history of multiple medical problems, recently had AAA repair. 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 The patient also is on multiple medications. Currently, the patient complaining of abdominal pain and vomiting. The patient has hypokalemia. The patient was admitted for evaluation and treatment. The patient had abdominal CT, which showed occluded left renal artery stent, otherwise no bowel obstruction or no other lesions are noted. There is no history of fever, rigors, or chills. PAST MEDICAL HISTORY: History of recent abdominal aortic surgery, hypertension, and multiple medical issues. Other history reviewed. HOME MEDICATIONS: Reviewed include Protonix. Doses and rest of medication noted. ALLERGIES: Cefazolin. Rest reviewed. FAMILY HISTORY: History of cancer. SOCIAL HISTORY: History of smoking. REVIEW OF SYSTEMS: Fourteen-point review is negative except as mentioned earlier. PHYSICAL EXAMINATION: VITAL SIGNS: Pulse is high 84, blood pressure 186/101, respirations 18. HEENT: Conjunctivae normal. NECK: No JVD. CARDIOVASCULAR: S1 and S2. RESPIRATIONS: Few scattered rhonchi. ABDOMEN: Soft. Mild tenderness noted. No guarding. No rigidity. No mass palpable. No rebound tenderness. Bowel sounds present. No ascites. No mass palpable. LEGS: No edema. No cyanosis. NERVOUS SYSTEM: No focal deficit. ABDOMEN: No distention. LABORATORY DATA: Labs are reviewed. Hemoglobin 12.7, potassium 3.0. ASSESSMENT: 1. Abdominal pain, vomiting, possible acute gastritis. 2. Severe hypokalemia. 3. Recent abdominal aortic aneurysm repair and left renal artery stent occlusion. 4. Hypertension. 5. Hyperlipidemia. 6. Multiple medical issues. RECOMMENDATIONS: This is a 77-year-old gentleman who presented with multiple complex medical issues. We will monitor the patient closely. The patient has responded to Dilaudid. At this time, we will continue to monitor. Symptomatic treatment provided. Repeat labs. There are no acute findings on CT scan. We will consult vascular surgery and continue to monitor. Gastroenterology and Nephrology were also consulted and guarded prognosis. Further recommendations to follow. MMODL / IJN: [id number] /
[2022-09-09] MEDS ORDERED: SUMAtriptan succinate 50 MG TAB PO PRN (08:22)
[2022-09-09 08:57] LABS: Basophils # (A) 0.1 k/uL (0-0.2); Basophils % (A) 1 %; Eosinophils % (A) 1 %; HCT 35.3 % (39.0-53.0); HGB 12.5 gm/dL (13.0-17.5); Lymphocytes # (A) 1.2 k/uL (1.0-4.8); Lymphocytes % (A) 16 %; MCH 33.3 pg (25.0-35.0); MCHC 35.4 g/dL (31.0-37.0); MCV 94.3 fL (80.0-100.0); Mean Platelet Volume 7.9; Monocytes # (A) 0.5 k/uL (0-1.0); Monocytes % (A) 7 %; Neutrophils # (A) 5.4 k/uL (1.3-7.7); Neutrophils % (A) 74 %; Platelet Count 276 k/uL (150-450); RBC 3.75 m/uL (4.30-5.90); RDW 13.3 % (11.5-15.5); WBC 7.3 k/uL (3.8-10.6)
[2022-09-09] MEDS ORDERED: amLODIPine 5 MG TAB PO SCH (09:00)
[2022-09-09] MEDS ORDERED: SODIUM CHLORIDE TAB 1 GM TAB PO SCH (09:00)
[2022-09-09 09:07] LABS: Calcium 8.9 mg/dL (8.4-10.2); Magnesium 1.7 mg/dL (1.6-2.3); Potassium 3.8 mmol/L (3.5-5.1)
[2022-09-09] MEDS: SENNOSIDES 8.6 MG TAB PO SCH (09:21)
[2022-09-09] MEDS: PANTOPRAZOLE 40 MG/10 ML VIAL IV SCH (09:21)
[2022-09-09] MEDS: DICYCLOMINE 10 MG CAP PO SCH (09:21)
[2022-09-09] MEDS: ISOSORBIDE MONONITRATE ER 30 MG TAB.ER.24H PO SCH ×2 (09:21→21:49)
[2022-09-09] MEDS: LEVOTHYROXINE 50 MCG TAB PO SCH (09:23)
[2022-09-09 10:51] VITALS: BMI 19.1
--- NOTE | 2022-09-09 11:26 | P.GSCN ---
History of Present Illness Consult date: 09/09/22 Reason for Consult: left renal stent occlusion Requesting physician: Nader Apodaca History of present illness: This is a pleasant 77-year-old male who presented to emergency department with complaints of left flank and lower abdominal pain. Has a past medical history including chronic pain syndrome, abdominal aortic aneurysm with repair, chronic nausea and vomiting, chronic hyponatremia. He had a CT of the abdomen and pelvis with contrast showing evidence of occlusion of the left renal stent. Vascular surgery was consulted for the above. Patient has a history of abdominal aortic aneurysm and underwent EVAR 05/12/[address] Anaya. Patient then was experiencing some left flank and abdominal pain and on June of this year underwent later [facility] after experiencing the pain for several hours. 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 However due to the timing of vascular surgery being notified there was no surgical intervention indicated. He has been following with Dr. Anaya patient underwent a CT angiogram of the abdomen and pelvis that again redemonstrated the renal stent occlusion with small collateral flow. Is essentially no change from the current CT abdomen and pelvis from previous studies. He also is complaining of chronic nausea and vomiting that has been going on for years. He has more of a gagging complaint which he states he continuously gags but does not bring up any food. He currently denies any chest pain or shortness of breath. Still has some left lower terminal discomfort. Admitting labs: WBC 6.2 hemoglobin 12.7 hematocrit 34 platelet count 263,000 INR 0.9 sodium 120 potassium 2.6 BUN 8 creatinine 1.1 glucose 1:15 total bilirubin 0.6 AST 29 ALT 15 alkaline phosphatase 15 amylase 46 lipase 43 Review of Systems A 14 point review systems was completed all pertinent positives and negatives as stated in the HPI. Past Medical History Past Medical History: Cancer, Chest Pain / Angina, Hyperlipidemia, Hypertension, Myocardial Infarction ([place]), Osteoarthritis (OA), Renal Disease, Syncope, Thyroid Disorder Additional Past Medical History / Comment(s): [place] X2 ("in my 30's), SKIN CA, pain lower spine and legs, rectal bleeding , irregular heart beat, low sodium, see Dr. Fink's H&P. Last Myocardial Infarction Date:: approx 40 yrs ago History of Any Multi-Drug Resistant Organisms: None Reported Past Surgical History: Back Surgery, Heart Catheterization, Hernia Repair, Orthopedic Surgery, Pacemaker, Tonsillectomy Additional Past Surgical History / Comment(s): LAMINECTOMY & PLACEMENT OF NEUROSTIMULATOR, repositioned them later removed, ana catarats, Recent aortic a neurysm repair May 2022. Past Anesthesia/Blood Transfusion Reactions: No Reported Reaction, Motion Sickness Type of Cardiac Device: Permanent Pacemaker Device Placement Date:: October 2017 Smoking Status: Current some day smoker - Past Family History Mother Family Medical History: Cancer Additional Family Medical History / Comment(s): cva with residual left leg weakness April 2020 Father Family Medical History: Cancer Brother(s) Family Medical History: Cancer Medications and Allergies Home Medications Medication Instructions Recorded Confirmed Type oxyCODONE HCL/ACETAMINOPHEN 1 tab PO Q6H PRN 07/16/17 09/08/22 History [Percocet 10-325 mg] Dicyclomine [Bentyl] 10 mg PO DAILY 01/31/20 09/08/22 History Aspirin EC [Ecotrin Low Dose] 81 mg PO DAILY 06/17/21 09/08/22 History Levothyroxine Sodium [Synthroid] 50 mcg PO MOTUWETHFRSA 06/17/21 09/08/22 History Naloxone HCl [Narcan] 4 mg NASAL ONCE PRN 06/17/21 09/08/22 History Nitroglycerin Sl Tabs [Nitrostat] 0.4 mg SUBLINGUAL Q5M PRN 06/17/21 09/08/22 History SUMAtriptan succinate [Imitrex] 50 mg PO BID PRN 07/08/21 09/08/22 History Apixaban [Eliquis] 5 mg PO BID 03/20/22 09/08/22 History Ergocalciferol (Vitamin D2) 1,250 mcg PO MO 03/20/22 09/08/22 History [Drisdol (50,000 Iu)] Esomeprazole Magnesium [NexIUM] 40 mg PO DAILY 03/20/22 09/08/22 History Umeclidinium Brm/Vilanterol Tr 1 puff INHALATION RT-DAILY 03/20/22 09/08/22 History [Anoro Ellipta 62.5-25 Mcg INH] amLODIPine [Norvasc] 5 mg PO DAILY 03/20/22 09/08/22 History Atorvastatin [Lipitor] 80 mg PO HS #90 tab 04/29/22 10/17/22 Rx Sennosides [Senokot] 8.6 mg PO DAILY tab 05/16/22 09/08/22 Rx Sodium Chloride Tab 1 gm PO DAILY 30 Days #30 tab 05/16/22 09/08/22 Rx Isosorbide Mononitrate ER [Imdur] 30 mg PO BID 09/08/22 09/08/22 History Levothyroxine Sodium [Synthroid] 25 mcg PO MOLINA 09/08/22 09/08/22 History Ondansetron Odt [Zofran Odt] 4 mg PO Q8HR PRN 09/08/22 09/08/22 History Pantoprazole [Protonix] 40 mg PO DAILY 09/08/22 09/08/22 History Allergies Allergy/AdvReac Type Severity Reaction Status Date / Time cefazolin Allergy Rash/Hives Verified 09/08/22 14:26 cefazolin sodium [From Anc] Allergy Rash/Hives Verified 09/08/22 14:26 morphine AdvReac Nausea & Verified 09/08/22 14:26 Vomiting Surgical - Exam Vital Signs Temp Pulse Resp BP Pulse Ox 98.2 F 90 18 182/104 99 09/08/22 10:07 09/08/22 10:07 09/08/22 10:07 09/08/22 10:07 09/08/22 10:07 General appearance: The patient is alert, oriented, appears in no acute distress. HET: Head is normocephalic and atraumatic. Neck: Supple. Heart: S1 S2. Regular rate and rhythm. Lungs: Clear to auscultation bilaterally. Abdomen: Soft, thin, left lower quadrant tenderness, nondistended. Extremities: Normal skin color and turgor. Bilateral palpable femoral pulses. Neurological: No focal deficits. Alert and oriented 3. Results - Labs 09/09/22 08:29 09/09/22 08:29 Abnormal Lab Results - Last 24 Hours (Table) 09/08/22 09/08/22 09/08/22 Range/Units 10:59 10:59 10:59 RBC 3.79 L (4.30-5.90) m/uL Hgb 12.7 L (13.0-17.5) gm/dL Hct 34.1 L (39.0-53.0) % MCHC 37.3 H (31.0-37.0) g/dL Lymphocytes # 0.8 L (1.0-4.8) k/uL Sodium 120 L (137-145) mmol/L Potassium 2.6 L* (3.5-5.1) mmol/L Chloride 82 L (98-107) mmol/L Carbon Dioxide 31 H (22-30) mmol/L BUN 8 L (9-20) mg/dL Glucose 115 H (74-99) mg/dL Total Protein 5.7 L (6.3-8.2) g/dL Albumin 3.4 L (3.5-5.0) g/dL Urine Protein 3+ H (Negative) Urine Blood Trace H (Negative) Urine Mucus Rare H (None) /hpf Diabetes panel 09/08/22 09/08/22 Range/Units 10:59 16:42 Sodium 120 L (137-145) mmol/L Potassium 2.6 L* 3.5 (3.5-5.1) mmol/L Chloride 82 L (98-107) mmol/L Carbon Dioxide 31 H (22-30) mmol/L BUN 8 L (9-20) mg/dL Creatinine 1.11 (0.66-1.25) mg/dL Glucose 115 H (74-99) mg/dL Calcium 8.4 (8.4-10.2) mg/dL AST 29 (17-59) U/L ALT 15 (4-49) U/L Alkaline Phosphatase 75 (38-126) U/L Total Protein 5.7 L (6.3-8.2) g/dL Albumin 3.4 L (3.5-5.0) g/dL Calcium panel 09/08/22 Range/Units 10:59 Calcium 8.4 (8.4-10.2) mg/dL Albumin 3.4 L (3.5-5.0) g/dL Pituitary panel 09/08/22 09/08/22 Range/Units 10:59 16:42 Sodium 120 L (137-145) mmol/L Potassium 2.6 L* 3.5 (3.5-5.1) mmol/L Chloride 82 L (98-107) mmol/L Carbon Dioxide 31 H (22-30) mmol/L BUN 8 L (9-20) mg/dL Creatinine 1.11 (0.66-1.25) mg/dL Glucose 115 H (74-99) mg/dL Calcium 8.4 (8.4-10.2) mg/dL Adrenal panel 09/08/22 09/08/22 Range/Units 10:59 16:42 Sodium 120 L (137-145) mmol/L Potassium 2.6 L* 3.5 (3.5-5.1) mmol/L Chloride 82 L (98-107) mmol/L Carbon Dioxide 31 H (22-30) mmol/L BUN 8 L (9-20) mg/dL Creatinine 1.11 (0.66-1.25) mg/dL Glucose 115 H (74-99) mg/dL Calcium 8.4 (8.4-10.2) mg/dL Total Bilirubin 0.6 (0.2-1.3) mg/dL AST 29 (17-59) U/L ALT 15 (4-49) U/L Alkaline Phosphatase 75 (38-126) U/L Total Protein 5.7 L (6.3-8.2) g/dL Albumin 3.4 L (3.5-5.0) g/dL - Imaging CT scan - abdomen: report reviewed Assessment and Plan Assessment: 1. 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 History of abdominal aortic aneurysm status post EVAR 05/12/22 3. Abdominal pain 4. Nausea and vomiting 5. Hyponatremia 6. Hypokalemia 7. Chronic pain syndrome Plan: Patient with known left renal artery stent occlusion with collateral perfusion to left kidney from smaller vessels. There is no indication for any vascular surgical intervention. Continue medical management. Continue with pain management. Thank you for this consultation, we will sign off at this time. The impression and plan of care has been dictated as directed. Dr. Saunders I performed a history and examination of this patient, discussed the same with the dictator. I agree with the dictator's note ,documented as a scribe. Any additional findings or plans will be noted.
--- NOTE | 2022-09-09 11:36 | P.NPCON ---
History of Present Illness - Reason for Consult hyponatremia - History of Present Illness Patient is a 77-year-old male with past medical history of hypertension, hypothyroidism and coronary artery disease. Patient is admitted to the hospital with history of abdominal discomfort. Family was concerned as he has a prior history of abdominal aortic aneurysm repair. Patient was noted to have a serum sodium of 120 and potassium of 2.6. He was started on normal saline and serum sodium improved to 123. No history of nausea vomiting or diarrhea. Patient was not maintained on diuretics at home prior to admission. Blood pressure has been on the higher side No new medications started recently. CT of the abdomen did not show any acute findings. Review of Systems As per HPI, other systems negative Past Medical History Past Medical History: Cancer, Chest Pain / Angina, Hyperlipidemia, Hypertension, Myocardial Infarction ([place]), Osteoarthritis (OA), Renal Disease, Syncope, Thyroid Disorder Additional Past Medical History / Comment(s): [place] X2 ("in my 30's), SKIN CA, pain lower spine and legs, rectal bleeding , irregular heart beat, low sodium, see Dr. Fink's H&P. Last Myocardial Infarction Date:: approx 40 yrs ago History of Any Multi-Drug Resistant Organisms: None Reported Past Surgical History: Back Surgery, Heart Catheterization, Hernia Repair, Orthopedic Surgery, Pacemaker, Tonsillectomy Additional Past Surgical History / Comment(s): LAMINECTOMY & PLACEMENT OF NEUROSTIMULATOR, repositioned them later removed, ana catarats, Recent aortic aneurysm repair May 2022. Past Anesthesia/Blood Transfusion Reactions: No Reported Reaction, Motion Sickness Type of Cardiac Device: Permanent Pacemaker Device Placement Date:: October 2017 Smoking Status: Current some day smoker - Past Family History Mother Family Medical History: Cancer Additional Family Medical History / Comment(s): cva with residual left leg weakness April 2020 Father Family Medical History: Cancer Brother(s) Family Medical History: Cancer Medications and Allergies Home Medications Medication Instructions Recorded Confirmed Type oxyCODONE HCL/ACETAMINOPHEN 1 tab PO Q6H PRN 07/16/17 09/08/22 History [Percocet 10-325 mg] Dicyclomine [Bentyl] 10 mg PO DAILY 01/31/20 09/08/22 History Aspirin EC [Ecotrin Low Dose] 81 mg PO DAILY 06/17/21 09/08/22 History Levothyroxine Sodium [Synthroid] 50 mcg PO MOTUWETHFRSA 06/17/21 09/08/22 History Naloxone HCl [Narcan] 4 mg NASAL ONCE PRN 06/17/21 09/08/22 History Nitroglycerin Sl Tabs [Nitrostat] 0.4 mg SUBLINGUAL Q5M PRN 06/17/21 09/08/22 History SUMAtriptan succinate [Imitrex] 50 mg PO BID PRN 07/08/21 09/08/22 History Apixaban [Eliquis] 5 mg PO BID 03/20/22 09/08/22 History Ergocalciferol (Vitamin D2) 1,250 mcg PO MO 03/20/22 09/08/22 History [Drisdol (50,000 Iu)] Esomeprazole Magnesium [NexIUM] 40 mg PO DAILY 03/20/22 09/08/22 History Umeclidinium Brm/Vilanterol Tr 1 puff INHALATION RT-DAILY 03/20/22 09/08/22 History [Anoro Ellipta 62.5-25 Mcg INH] amLODIPine [Norvasc] 5 mg PO DAILY 03/20/22 09/08/22 History Atorvastatin [Lipitor] 80 mg PO HS #90 tab 03/21/22 09/08/22 Rx Sennosides [Senokot] 8.6 mg PO DAILY tab 05/16/22 09/08/22 Rx Sodium Chloride Tab 1 gm PO DAILY 30 Days #30 tab 05/16/22 09/08/22 Rx Isosorbide Mononitrate ER [Imdur] 30 mg PO BID 09/08/22 09/08/22 History Levothyroxine Sodium [Synthroid] 25 mcg PO MOLINA 09/08/22 09/08/22 History Ondansetron Odt [Zofran Odt] 4 mg PO Q8HR PRN 09/08/22 09/08/22 History Pantoprazole [Protonix] 40 mg PO DAILY 09/08/22 09/08/22 History Allergies Allergy/AdvReac Type Severity Reaction Status Date / Time cefazolin Allergy Rash/Hives Verified 09/08/22 14:26 cefazolin sodium [From Anc] Allergy Rash/Hives Verified 09/08/22 14:26 morphine AdvReac Nausea & Verified 09/08/22 14:26 Vomiting Physical Exam Vitals: Vital Signs Temp Pulse Pulse Resp BP BP Pulse Ox 09/09/22 08:20 97.9 F 96 15 170/86 96 09/09/22 04:00 98.2 F 83 14 168/90 98 09/08/22 20:00 98.2 F 93 15 131/97 97 09/08/22 17:33 97.6 F 85 20 185/94 97 09/08/22 16:49 97.7 F 84 18 186/101 97 09/08/22 16:02 98.7 F 80 20 174/111 99 09/08/22 13:35 87 18 181/108 97 09/08/22 12:35 79 20 188/107 97 Intake and Output 09/08/22 09/09/22 09/09/22 22:59 06:59 14:59 Other: Voiding Method Toilet Toilet Toilet # Voids 2 2 Weight 54.431 kg 52.254 kg Patient is awake, comfortable, not in any acute distress Examination of the heart S1 and S2 Examination of the lungs bilateral breath sounds are heard Abdomen is soft nontender Examination of the lower extremities shows no evidence of edema Results - Lab Results Most recent lab results Calcium 8.9 mg/dL (8.4-10.2) 09/09/22 08:29 Magnesium 1.7 mg/dL (1.6-2.3) 09/09/22 08:29 09/09/22 08:29 09/09/22 08:29 Assessment and Plan Assessment: 1. Hyponatremia appears to be hypovolemic and improved with normal saline. Blood pressure is actually high therefore I will hold the sodium chloride tabs. A urine osmolality and urine sodium has been ordered. Continue with normal saline for now. 2. Hypokalemia status post replacement 3. History of hypothyroidism 4. Proteinuria rule out underlying chronic kidney disease. Serum creatinine seems to be around 1 mg/dL. No history of diabetes. Plan: Check urine osmolality and random urine sodium DC sodium chloride tabs as blood pressure is elevated Continue with normal saline Check TSH Check baseline serologies to workup proteinuria. Thank you for the consultation. We'll continue to follow the patient with you during his hospitalization
--- NOTE | 2022-09-09 11:39 | P.CONS ---
History of Present Illness - Reason for Consult Consult date: 09/09/22 intractable nausea and vomiting Requesting physician: Kahlil E Sheet - Chief Complaint Nausea, vomiting, abdominal pain - History of Present Illness This is a pleasant 77-year-old male who presented to emergency department with complaints of left flank and lower abdominal pain. Has a past medical history including chronic pain syndrome, abdominal aortic aneurysm with repair, chronic nausea and vomiting, chronic hyponatremia. He had a CT of the abdomen and pelvis with contrast showing evidence of occlusion of the left renal stent. Vascular surgery was consulted for the above. Patient has a history of abdominal aortic aneurysm and underwent EVAR 05/12/[address] Anyaa. Patient then was experiencing some left flank and abdominal pain and on June of this year underwent later [facility] after experiencing the pain for several hours. 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 However due to the timing of vascular surgery being notified there was no surgical intervention indicated. He has been following with Dr. Anaya patient underwent a CT angiogram of the abdomen and pelvis that again redemonstrated the renal stent occlusion with small collateral flow. It is essentially no change from the current CT abdomen and pelvis from previous studies. He also is complaining of chronic nausea and vomiting that has been going on for years. He has more of a gagging complaint which he states he continuously gags but does not bring up any food. He currently denies any chest pain or shortness of breath. Still has some left lower abdominal discomfort. He has been afebrile. His last EGD and colonoscopy was done in June [address] Lobo. EGD reported sliding hiatal hernia with no obvious esophagitis or complicated reflux disease. Mild gastritis and duodenitis. Colonoscopy with findings of mild sigmoid diverticulosis. He denies any difficulty with swallowing. States though he has lost approximately 20 pound weight loss over the last 1-2 years. He currently takes Nexium and Bentyl at home. He has chronic opioid user, with a history of opioid abuse in the past. History of alcohol abuse in the past. Patient has a sitter at the bedside, she is reporting that he is just gagging not vomiting. Admitting labs: WBC 6.2 hemoglobin 12.7 hematocrit 34 platelet count 263,000 INR 0.9 sodium 120 potassium 2.6 BUN 8 creatinine 1.1 glucose 1:15 total bilirubin 0.6 AST 29 ALT 15 alkaline phosphatase 15 amylase 46 lipase 43 Review of Systems REVIEW OF SYSTEMS: CARDIOPULMONARY: No chest pain or shortness of breath. Gastrointestinal: Left lower quadrant and flank pain. Reports nausea and vomiting, gagging. No hematemesis, coffee-ground emesis. No rectal bleeding, or melena. GENITOURINARY: No dysuria or hematuria. MUSCULOSKELETAL: Reports normal range of motion. Chronic pain syndrome. SKIN: No rashes. No jaundice. ENDOCRINE: No chills, fevers. No excessive weight gain or loss. No polydipsia or polyuria. PSYCHIATRIC: Unremarkable. NEUROLOGY: No change in mental status. Denies dizziness, headache. ENT: Vision unremarkable. CONSTITUTIONAL: No recent weight loss. No fever, chills, night sweats. Past Medical History Past Medical History: Cancer, Chest Pain / Angina, Hyperlipidemia, Hypertension, Myocardial Infarction (GA), Osteoarthritis (OA), Renal Disease, Syncope, Thyroid Disorder Additional Past Medical History / Comment(s): GA X2 ("in my 30's), SKIN CA, pain lower spine and legs, rectal bleeding , irregular heart beat, low sodium, see Dr. Fink's H&P. Last Myocardial Infarction Date:: approx 40 yrs ago History of Any Multi-Drug Resistant Organisms: None Reported Past Surgical History: Back Surgery, Heart Catheterization, Hernia Repair, Orthopedic Surgery, Pacemaker, Tonsillectomy Additional Past Surgical History / Comment(s): LAMINECTOMY & PLACEMENT OF NEUROSTIMULATOR, repositioned them later removed, ana catarats, Recent aortic aneurysm repair May 2022. Past Anesthesia/Blood Transfusion Reactions: No Reported Reaction, Motion Sickness Type of Cardiac Device: Permanent Pacemaker Device Placement Date:: October 2017 Smoking Status: Current some day smoker - Past Family History Mother Family Medical History: Cancer Additional Family Medical History / Comment(s): cva with residual left leg weakness April 2020 Father Family Medical History: Cancer Brother(s) Family Medical History: Cancer Medications and Allergies Home Medications Medication Instructions Recorded Confirmed Type oxyCODONE HCL/ACETAMINOPHEN 1 tab PO Q6H PRN 07/16/17 09/08/22 History [Percocet 10-325 mg] Dicyclomine [Bentyl] 10 mg PO DAILY 01/31/20 09/08/22 History Aspirin EC [Ecotrin Low Dose] 81 mg PO DAILY 06/17/21 09/08/22 History Levothyroxine Sodium [Synthroid] 50 mcg PO MOTUWETHFRSA 06/17/21 09/08/22 History Naloxone HCl [Narcan] 4 mg NASAL ONCE PRN 06/17/21 09/08/22 History Nitroglycerin Sl Tabs [Nitrostat] 0.4 mg SUBLINGUAL Q5M PRN 06/17/21 09/08/22 History SUMAtriptan succinate [Imitrex] 50 mg PO BID PRN 07/08/21 09/08/22 History Apixaban [Eliquis] 5 mg PO BID 03/20/22 09/08/22 History Ergocalciferol (Vitamin D2) 1,250 mcg PO MO 03/20/22 09/08/22 History [Drisdol (50,000 Iu)] Esomeprazole Magnesium [NexIUM] 40 mg PO DAILY 03/20/22 09/08/22 History Umeclidinium Brm/Vilanterol Tr 1 puff INHALATION RT-DAILY 03/20/22 09/08/22 History [Anoro Ellipta 62.5-25 Mcg INH] amLODIPine [Norvasc] 5 mg PO DAILY 03/20/22 09/08/22 History Atorvastatin [Lipitor] 80 mg PO HS #90 tab 03/21/22 09/08/22 Rx Sennosides [Senokot] 8.6 mg PO DAILY tab 05/16/22 09/08/22 Rx Sodium Chloride Tab 1 gm PO DAILY 30 Days #30 tab 05/16/22 09/08/22 Rx Isosorbide Mononitrate ER [Imdur] 30 mg PO BID 09/08/22 09/08/22 History Levothyroxine Sodium [Synthroid] 25 mcg PO MOLINA 09/08/22 09/08/22 History Ondansetron Odt [Zofran Odt] 4 mg PO Q8HR PRN 09/08/22 09/08/22 History Pantoprazole [Protonix] 40 mg PO DAILY 09/08/22 09/08/22 History Allergies Allergy/AdvReac Type Severity Reaction Status Date / Time cefazolin Allergy Rash/Hives Verified 09/08/22 14:26 cefazolin sodium [From Ancef] Allergy Rash/Hives Verified 09/08/22 14:26 morphine AdvReac Nausea & Verified 09/08/22 14:26 Vomiting Physical Exam Vitals: Vital Signs Temp Pulse Pulse Resp BP BP Pulse Ox 09/09/22 04:00 98.2 F 83 14 168/90 98 09/08/22 20:00 98.2 F 93 15 131/97 97 09/08/22 17:33 97.6 F 85 20 185/94 97 09/08/22 16:49 97.7 F 84 18 186/101 97 09/08/22 16:02 98.7 F 80 20 174/111 99 09/08/22 13:35 87 18 181/108 97 09/08/22 12:35 79 20 188/107 97 09/08/22 10:07 98.2 F 90 18 182/104 99 Intake and Output 09/08/22 09/09/22 09/09/22 22:59 06:59 14:59 Other: Voiding Method Toilet Toilet # Voids 2 2 Weight 54.431 kg General appearance: The patient is alert, oriented, appears in no acute distress. HET: Head is normocephalic and atraumatic. Conjunctiva pink. Sclera anicteric. Neck: Supple without lymphadenopathy. Trachea midline. Heart: S1 S2. Regular rate and rhythm. Lungs: Clear to auscultation. Abdomen: Soft, left lower quadrant tenderness, then, nondistended with bowel sounds. No guarding or rigidity. Skin: No rashes. No jaundice. Extremities: Normal skin color and turgor. No pedal edema. Neurological: No focal deficits. Alert and oriented x3. Results CBC & Chem 7: 09/09/22 08:29 09/09/22 08:29 Labs: Abnormal Lab Results - Last 24 Hours (Table) 09/08/22 09/08/22 09/08/22 Range/Units 10:59 10:59 10:59 RBC 3.79 L (4.30-5.90) m/uL Hgb 12.7 L (13.0-17.5) gm/dL Hct 34.1 L (39.0-53.0) % MCHC 37.3 H (31.0-37.0) g/dL Lymphocytes # 0.8 L (1.0-4.8) k/uL Sodium 120 L (137-145) mmol/L Potassium 2.6 L* (3.5-5.1) mmol/L Chloride 82 L (98-107) mmol/L Carbon Dioxide 31 H (22-30) mmol/L BUN 8 L (9-20) mg/dL Glucose 115 H (74-99) mg/dL Total Protein 5.7 L (6.3-8.2) g/dL Albumin 3.4 L (3.5-5.0) g/dL Urine Protein 3+ H (Negative) Urine Blood Trace H (Negative) Urine Mucus Rare H (None) /hpf Comments: CT abdomen and pelvis with and without contrast reports no bowel obstruction. No suspicious new or acute findings seen to account for patient's symptoms. CT scan - abdomen: report reviewed Assessment and Plan (1) Nausea and vomiting Narrative/Plan: 77-year-old with multiple comorbidities presented to the emergency department with complaints of left flank pain and nausea and vomiting. States he's had n ausea and vomiting for several years which she feels has been worse over the last several months since his abdominal aortic repair. He's had history of EGD and colonoscopy in 2017Dr. Nasser wished findings of gastritis, small hiatal hernia, with colonoscopy findings of sigmoid diverticulosis. Patient is currently on clear liquid diet and states he is tolerating it fine and enjoying his clear liquids. He states that he has no difficulty with swallowing or eating. States he has chronic gagging however does not actually vomit up his food. While in the room I was able to witness the patient sitting in bed and just starting to gag, more of a coughing type gag. No dry heaving or emesis. U nclear etiology at this time. Be related to hyponatremia and hypokalemia, however need to consider other possible etiologies. Will proceed with EGD tomorrow. Current Visit: Yes Status: Acute Code(s): R11.2 - NAUSEA WITH VOMITING, UNSPECIFIED SNOMED Code(s): 06747618 (2) Chronic pain syndrome Current Visit: Yes Status: Acute Code(s): G89.4 - CHRONIC PAIN SYNDROME SNOMED Code(s): 416064237 (3) History of alcohol abuse Current Visit: Yes Status: Acute Code(s): F10.11 - ALCOHOL ABUSE, IN REMISSION SNOMED Code(s): 261412832 (4) Abdominal pain Current Visit: Yes Status: Acute Code(s): R10.9 - UNSPECIFIED ABDOMINAL PAIN SNOMED Code(s): 56706800 (5) Hypokalemia Current Visit: Yes Status: Acute Code(s): E87.6 - HYPOKALEMIA SNOMED Code(s): 84516177 (6) Hyponatremia Current Visit: Yes Status: Acute Code(s): E87.1 - HYPO-OSMOLALITY AND HYPONATREMIA SNOMED Code(s): 21206715 Plan: 1. Continue symptomatic and supportive care 2. Patient may stay on clear liquid diet, per request, nothing by mouth after midnight 3. Will add ensure 4. Continue Protonix 40 mg daily 5. Antiemetics as needed 6. Replace electrolytes 7. Plan for EGD tomorrow 8. Continue to hold Angelicais Thank you for this consultation, we will continue to follow. Dr. Sarika Garcia I agree with the dictator's note, documented as a scribe by Gloria Peters.
[2022-09-09] MEDS: ATORVASTATIN 80 MG TAB PO SCH ×2 (20:42→20:45)
[2022-09-09] MEDS ORDERED: TOLVAPTAN 15 MG 1/2 TABLET PO ONE (23:00)
[2022-09-10 00:01] LABS: Hepatitis B Surface AB- Quant 3.5 mIU/mL; Hepatitis B Surface Antibody Nonreactive (Nonreactive)
[2022-09-10 00:06] LABS: Hepatitis B Surface Antigen Nonreactive (Nonreactive); Hepatitis C IgG Antibody Nonreactive (Nonreactive)
[2022-09-10 01:13] LABS: Anti-DNA, DS unit <1.0 IU/mL; DNA Double-Stranded NEGATIVE (NEGATIVE)
[2022-09-10] MEDS: LEVOTHYROXINE 50 MCG TAB PO SCH (06:45)
[2022-09-10 08:13] LABS: Basophils % (A) 0 %; Eosinophils % (A) 0 %; HCT 32.1 % (39.0-53.0); HGB 11.7 gm/dL (13.0-17.5); Lymphocytes # (A) 0.5 k/uL (1.0-4.8); Lymphocytes % (A) 6 %; MCH 33.7 pg (25.0-35.0); MCHC 36.3 g/dL (31.0-37.0); MCV 92.8 fL (80.0-100.0); Mean Platelet Volume 7.6; Monocytes # (A) 0.4 k/uL (0-1.0); Monocytes % (A) 5 %; Neutrophils # (A) 6.8 k/uL (1.3-7.7); Neutrophils % (A) 88 %; Platelet Count 245 k/uL (150-450); RBC 3.46 m/uL (4.30-5.90); RDW 13.2 % (11.5-15.5); WBC 7.8 k/uL (3.8-10.6)
[2022-09-10] MEDS: SENNOSIDES 8.6 MG TAB PO SCH (08:17)
[2022-09-10] MEDS: DICYCLOMINE 10 MG CAP PO SCH (08:17)
[2022-09-10] MEDS: amLODIPine 5 MG TAB PO SCH ×2 (08:17→20:26)
[2022-09-10] MEDS: ISOSORBIDE MONONITRATE ER 30 MG TAB.ER.24H PO SCH ×2 (08:17→20:26)
[2022-09-10] MEDS: PANTOPRAZOLE 40 MG/10 ML VIAL IV SCH (08:17)
[2022-09-10 08:34] LABS: Albumin 3.2 g/dL (3.5-5.0); Calcium 8.3 mg/dL (8.4-10.2); Potassium 3.2 mmol/L (3.5-5.1); Total Bilirubin 1.1 mg/dL (0.2-1.3); Total Protein 5.3 g/dL (6.3-8.2)
--- NOTE | 2022-09-10 08:54 | PN ---
PROGRESS NOTE DATE OF SERVICE: 09/09/2022 SUBJECTIVE: This 77-year-old gentleman, who was admitted with abdominal pain, vomiting, and possible acute gastritis, is being closely monitored. The patient has severe hypokalemia. The patient is being evaluated by multiple consultants. Recommended symptomatic treatment. PHYSICAL EXAMINATION: VITAL SIGNS: Pulse is 94, blood pressure _ respirations 17. CHEST: Clear to auscultation. CARDIOVASCULAR: S1, S2. ABDOMEN: Soft. Mild diffuse tenderness. No guarding or rigidity. NERVOUS SYSTEM: Nonfocal. LABORATORY DATA: Potassium 3.8. Other labs are noted. ASSESSMENT: 1. Abdominal pain, vomiting, and possible acute gastritis. 2. Severe hypokalemia. 3. Recent abdominal aortic aneurysm repair and left renal artery occlusion. 4. Hypertension. 5. Hyperlipidemia. 6. Multiple medical issues. RECOMMENDATIONS: I recommend to continue current medications and symptomatic treatment. PT/OT evaluation. Repeat labs. Consider ECF rehab. Guarded prognosis. Further recommendations to follow. MMODL / IJN: [id number] / REINALDO
[2022-09-10] MEDS ORDERED: Potassium Replacement Protocol 1 EACH MISC MISCELLANE PRN (09:16)
[2022-09-10] MEDS: HYDROmorphone 1 MG/ML 1 ML SYRINGE IVP PRN ×2 (10:12→18:42)
[2022-09-10] MEDS: POTASSIUM CHLORIDE ER 20 MEQ TAB.ER PO SCH ×2 (10:12→10:13)
[2022-09-10] MEDS: LORazepam 1 MG/0.5 ML VIAL IV PRN ×3 (10:55→22:48)
--- NOTE | 2022-09-10 12:18 | P.PN ---
Subjective Progress Note Date: 09/10/22 Principal diagnosis: Nausea and vomiting This is a pleasant 77-year-old male who presented to emergency department with complaints of left flank and lower abdominal pain. Has a past medical history including chronic pain syndrome, abdominal aortic aneurysm with repair, chronic nausea and vomiting, chronic hyponatremia. He had a CT of the abdomen and pelvis with contrast showing evidence of occlusion of the left renal stent. Vascular surgery was consulted for the above. Patient has a history of abdominal aortic aneurysm and underwent EVAR 05/12/[address] Anaya. Patient then was experiencing some left flank and abdominal pain and on June of this year underwent [facility] after experiencing the pain for several hours. 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 However due to the timing of vascular surgery being notified there was no surgical intervention indicated. He has been following with Dr. Anaya patient underwent a CT angiogram of the abdomen and pelvis that again redemonstrated the renal stent occlusion with small collateral flow. It is essentially no change from the current CT abdomen and pelvis from previous studies. He also is complaining of chronic nausea and vomiting that has been going on for years. He has more of a gagging complaint which he states he continuously gags but does not bring up any food. He currently denies any chest pain or shortness of breath. Still has some left lower abdominal discomfort. He has been afebrile. His last EGD and colonoscopy was done in June [address] Lobo. EGD reported sliding hiatal hernia with no obvious esophagitis or complicated reflux disease. Mild gastritis and duodenitis. Colonoscopy with findings of mild sigmoid diverticulosis. He denies any difficulty with swallowing. States though he has lost approximately 20 pound weight loss over the last 1-2 years. He currently takes Nexium and Bentyl at home. He has chronic opioid user, with a history of opioid abuse in the past. History of alcohol abuse in the past. Patient has a sitter at the bedside, she is reporting that he is just gagging not vomiting. 09/10/2022: Patient seen and examined as a follow-up for complaints of nausea and vomiting. Patient was scheduled to undergo EGD this morning however sodium still remained low at 121 and potassium dropped to 3.2. Anesthesia canceled procedure for today, he is rescheduled for tomorrow. No other acute changes through the night. Nephrology is following patient closely for hyponatremia. Patient has continued gagging episodes. no hematemesis. Objective - Vital Signs Vital signs: Vital Signs Temp 97.8 F 09/10/22 11:23 Pulse 76 09/10/22 11:23 Resp 18 09/10/22 11:26 BP 167/84 09/10/22 11:23 Pulse Ox 96 09/10/22 11:23 FiO2 Intake & Output 09/09/22 09/10/22 09/10/22 18:59 06:59 18:59 Intake Total 150 Balance 150 Weight 52.254 kg Intake: Intake, IV Titration 150 Amount Sodium Chloride 0.9% 1, 150 000 ml @ 75 mls/hr IV . [id number] [facility] Rx#:[id number] Other: Voiding Method Toilet Toilet # Voids 1 2 - Exam General appearance: The patient is alert, oriented, appears in no acute distress. HET: Head is normocephalic and atraumatic. Conjunctiva pink. Sclera anicteric. Neck: Supple without lymphadenopathy. Abdomen: Soft, nontender, nondistended with bowel sounds. No guarding or rigidity. Extremities: Normal skin color and turgor. No pedal edema Skin: No rashes, no jaundice Neurological: No focal deficits. Alert and oriented. - Labs CBC & Chem 7: 09/10/22 07:22 09/10/22 07:22 Labs: Abnormal Lab Results - Last 24 Hours (Table) 09/09/22 09/09/22 09/10/22 Range/Units 14:30 15:05 07:22 RBC 3.46 L (4.30-5.90) m/uL Hgb 11.7 L (13.0-17.5) gm/dL Hct 32.1 L (39.0-53.0) % Lymphocytes # 0.5 L (1.0-4.8) k/uL Sodium 121 L (137-145) mmol/L Potassium (3.5-5.1) mmol/L Chloride (98-107) mmol/L BUN (9-20) mg/dL Glucose (74-99) mg/dL Calcium (8.4-10.2) mg/dL Magnesium (1.6-2.3) mg/dL Total Protein (6.3-8.2) g/dL Albumin (3.5-5.0) g/dL Ur Random Sodium 25 L (40-220) mmol/L 09/10/22 09/10/22 Range/Units 07:22 07:22 RBC (4.30-5.90) m/uL Hgb (13.0-17.5) gm/dL Hct (39.0-53.0) % Lymphocytes # (1.0-4.8) k/uL Sodium 121 L (137-145) mmol/L Potassium 3.2 L (3.5-5.1) mmol/L Chloride 89 L (98-107) mmol/L BUN 8 L (9-20) mg/dL Glucose 100 H (74-99) mg/dL Calcium 8.3 L (8.4-10.2) mg/dL Magnesium 1.5 L (1.6-2.3) mg/dL Total Protein 5.3 L (6.3-8.2) g/dL Albumin 3.2 L (3.5-5.0) g/dL Ur Random Sodium (40-220) mmol/L Assessment and Plan (1) Nausea and vomiting Narrative/Plan: 77-year-old with multiple comorbidities presented to the emergency department w ith complaints of left flank pain and nausea and vomiting. States he's had nausea and vomiting for several years which she feels has been worse over the last several months since his abdominal aortic repair. He's had history of EGD and colonoscopy in 2017Dr. Nasser wished findings of gastritis, small hiatal hernia, with colonoscopy findings of sigmoid diverticulosis. Patient is currently on clear liquid diet and states he is tolerating it fine and enjoying his clear liquids. He states that he has no difficulty with swallowing or eating. States he has chronic gagging however does not actually vomit up his food. While in the room I was able to witness the patient sitting in bed and just starting to gag, more of a coughing type gag. No dry heaving or emesis. Unclear etiology at this time. Be related to hyponatremia and hypokalemia, however need to consider other possible etiologies. Will proceed with EGD tomorrow. Current Visit: Yes Status: Acute Code(s): R11.2 - NAUSEA WITH VOMITING, UNSPECIFIED SNOMED Code(s): 43731523 (2) Chronic pain syndrome Current Visit: Yes Status: Acute Code(s): G89.4 - CHRONIC PAIN SYNDROME SNOMED Code(s): 924147686 (3) History of alcohol abuse Current Visit: Yes Status: Acute Code(s): F10.11 - ALCOHOL ABUSE, IN REM ISSION SNOMED Code(s): 326733867 (4) Abdominal pain Current Visit: Yes Status: Acute Code(s): R10.9 - UNSPECIFIED ABDOMINAL PAIN SNOMED Code(s): 49824389 (5) Hypokalemia Current Visit: Yes Status: Acute Code(s): E87.6 - HYPOKALEMIA SNOMED Code(s): 00239080 (6) Hyponatremia Current Visit: Yes Status: Acute Code(s): E87.1 - HYPO-OSMOLALITY AND HYPONATREMIA SNOMED Code(s): 49401198 Plan: 1. Continue symptomatic and supportive care 2. Patient may stay on clear liquid diet, per request, nothing by mouth after midnight 3. Will add ensure 4. Continue Protonix 40 mg daily 5. Antiemetics as needed 6. Replace electrolytes 7. EGD rescheduled for tomorrow 8. Continue to hold Eliquis 9. Continue with recommendations from nephrology Thank you for this consultation, we will continue to follow. Dr. Sarika Garcia I agree with the dictator's note, documented as a scribe by Gloria Peters.
--- NOTE | 2022-09-10 13:14 | CT ---
EXAMINATION TYPE: CT brain wo con DATE OF EXAM: 09/10/2022 COMPARISON: 12/25/2021 HISTORY: AMS CT DLP: 1217.4 mGycm Automated exposure control for dose reduction was used. FINDINGS: There is mild to moderate generalized degenerative change. There persists diffuse low attenuation thr oughout the white matter. There is no evidence of midline shift or mass effect. No acute hemorrhage. Intracranial atherosclerotic changes are seen. Craniocervical junction is maintained. Pituitary gland is prominent correlate clinically. Calvarium intact. Sinuses are clear. Nasal septal deviation noted . Orbits are symmetric. IMPRESSION: DEGENERATIVE AND DIFFUSE NONSPECIFIC WHITE MATTER CHANGES. FINDINGS MOST TYPICAL OF REMOTE WHITE RODRIGO ER ISCHEMIA. IF CONCERN FOR ACUTE ISCHEMIA CORRELATE WITH MRI.
[2022-09-10] MEDS ORDERED: TOLVAPTAN 30 MG TABLET PO ONE (15:41)
--- NOTE | 2022-09-10 15:49 | P.PN ---
Subjective Patient is seen for follow-up for hyponatremia. Serum sodium did not improve with normal saline. Sodium chloride tabs were discontinued as blood pressure is significantly elevated. Patient received Samsca last night however his sodium has not improved much. Urine osmolality at 327 and random urine sodium of 25. TSH is not elevated Patient denies any numbness tingling, nausea or vomiting. Objective - Vital Signs Vital signs: Vital Signs Temp 97.8 F 09/10/22 11:23 Pulse 76 09/10/22 11:23 Resp 18 09/10/22 11:26 BP 167/84 09/10/22 11:23 Pulse Ox 96 09/10/22 11:23 FiO2 Intake & Output 09/09/22 09/10/22 09/10/22 18:59 06:59 18:59 Intake Total 150 Balance 150 Weight 52.254 kg Intake: Intake, IV Titration 150 Amount Sodium Chloride 0.9% 1, 150 000 ml @ 75 mls/hr IV . [id number] [facility] Rx#:[id number] Other: Voiding Method Toilet Toilet # Voids 1 2 - Exam Patient is awake, comfortable, not in any acute distress Examination of the heart S1 and S2 Examination of the lungs bilateral breath sounds are heard Abdomen is soft nontender Examination of the lower extremities shows no significant edema [employer]IUM [employer] exam grossly intact - Labs CBC & Chem 7: 09/10/22 07:22 09/10/22 12:11 Labs: Abnormal Lab Results - Last 24 Hours (Table) 09/09/22 09/10/22 09/10/22 Range/Units 15:05 07:22 07:22 RBC 3.46 L (4.30-5.90) m/uL Hgb 11.7 L (13.0-17.5) gm/dL Hct 32.1 L (39.0-53.0) % Lymphocytes # 0.5 L (1.0-4.8) k/uL Sodium 121 L (137-145) mmol/L Potassium 3.2 L (3.5-5.1) mmol/L Chloride 89 L (98-107) mmol/L BUN 8 L (9-20) mg/dL Glucose 100 H (74-99) mg/dL Calcium 8.3 L (8.4-10.2) mg/dL Magnesium (1.6-2.3) mg/dL Total Protein 5.3 L (6.3-8.2) g/dL Albumin 3.2 L (3.5-5.0) g/dL Ur Random Sodium 25 L (40-220) mmol/L 09/10/22 09/10/22 Range/Units 07:22 12:11 RBC (4.30-5.90) m/uL Hgb (13.0-17.5) gm/dL Hct (39.0-53.0) % Lymphocytes # (1.0-4.8) k/uL Sodium 120 L (137-145) mmol/L Potassium (3.5-5.1) mmol/L Chloride (98-107) mmol/L BUN (9-20) mg/dL Glucose (74-99) mg/dL Calcium (8.4-10.2) mg/dL Magnesium 1.5 L (1.6-2.3) mg/dL Total Protein (6.3-8.2) g/dL Albumin (3.5-5.0) g/dL Ur Random Sodium (40-220) mmol/L Assessment and Plan Assessment: 1. Hyponatremia appears to be hypovolemic and slightly improved with normal saline and sodium chloride tabs initially. Blood pressure is actually high therefore I will hold the sodium chloride tabs. Urine osmolality is 327. Patient received Samsca last night. The dose will be repeated again as sodium has not changed much. 2. Hypokalemia status post replacement 3. History of hypothyroidism 4. Proteinuria rule out underlying chronic kidney disease. Serum creatinine seems to be around 1 mg/dL. No history of diabetes. Plan: Repeat Samsca 1 Repeat sodium later on today Encourage increased oral protein intake Maintained few water restriction neck DC saline Replace potassium
[2022-09-10] MEDS: carvediloL 6.25 MG TAB PO SCH (16:42)
[2022-09-10] MEDS ORDERED: MAGNESIUM SULFATE-D5W PMX 1 GM in DEXTROSE/WATER 1 100ML.BAG IVPB ONE (21:59)
[2022-09-10] MEDS ORDERED: LORazepam 1 MG/0.5 ML VIAL IV PRN (22:33)
[2022-09-11] MEDS: LORazepam 1 MG/0.5 ML VIAL IV PRN ×13 (00:07→23:55)
[2022-09-11] MEDS: HYDROmorphone 1 MG/ML 1 ML SYRINGE IVP PRN (03:02)
--- NOTE | 2022-09-11 04:50 | P.CONS ---
History of Present Illness - Chief Complaint Medical debility - History of Present Illness I had the opportunity to see patient for inpatient rehab consultation with regard to medical debility. Patient admitted to Dr. cotto September 08 abdominal discomfort and vomiting. Noted aorta surgery in May. Seen by vascular surgery who notes left renal artery occlusion and history of AAA. Seen by Dr. Gil for hyponatremia hypokalemia. Diagnostic tests head CT with degenerative change nonspecific change. Chest x-ray with cardiomegaly and airspace disease. Computed tomography scan of abdomen and pelvis demonstrates mild left basilar atelectasis, adrenal hyperplasia. Has started therapy. PT reports no assistance bed mobility, transfer, gait 80 feet with IV pole. Balance poor and shaky. OT reports independent with feeding, supervision for grooming and upper dressing, moderate assistance lower dressing and toileting and minimal assistance for bathing and for functional mobility and ADL transfer. Previous functional history unobtainable from patient this early a.m. due to sleepiness and medication. A 77-year-old white male. Review of Systems Review of systems: ENT: Hard of hearing. Eyes: Denies discharge or photophobia. Cardiac: Denies chest pain or palpitation. Pulmonary: Denies cough or shortness of breath. Gastrointestinal: Denies nausea, emesis, constipation, diarrhea. Genitourinary: Denies discharge or frequency. Musculoskeletal: Denies muscle or bone aches. Thin limbs. Neurologic: Poorly interactive. Endocrine: Denies shakes or sweats. Oncology: Denies cancers. Dermatologic: Denies rash, itching, pruritus. ALLERGY/immunology: Denies sneezes, rashes. Past Medical History Past Medical History: Cancer, Chest Pain / Angina, Hyperlipidemia, Hypertension, Myocardial Infarction (ME), Osteoarthritis (OA), Renal Disease, Syncope, Thyroid Disorder Additional Past Medical History / Comment(s): ME X2 ("in my 30's), SKIN CA, pain lower spine and legs, rectal bleeding , irregular heart beat, low sodium, see Dr. Fink's H&P. Last Myocardial Infarction Date:: approx 40 yrs ago History of Any Multi-Drug Resistant Organisms: None Reported Past Surgical History: Back Surgery, Heart Catheterization, Hernia Repair, Orthopedic Surgery, Pacemaker, Tonsillectomy Additional Past Surgical History / Comment(s): LAMINECTOMY & PLACEMENT OF NEUROSTIMULATOR, repositioned them later removed, ana catarats, Recent aortic aneurysm repair May 2022. Past Anesthesia/Blood Transfusion Reactions: No Reported Reaction, Motion Sickness Type of Cardiac Device: Permanent Pacemaker Device Placement Date:: October 2017 Smoking Status: Current some day smoker - Past Family History Mother Family Medical History: Cancer Additional Family Medical History / Comment(s): cva with residual left leg weakness April 2020 Father Family Medical History: Cancer Brother(s) Family Medical History: Cancer Medications and Allergies Home Medications Medication Instructions Recorded Confirmed Type oxyCODONE HCL/ACETAMINOPHEN 1 tab PO Q6H PRN 07/16/17 09/08/22 History [Percocet 10-325 mg] Dicyclomine [Bentyl] 10 mg PO DAILY 01/31/20 09/08/22 History Aspirin EC [Ecotrin Low Dose] 81 mg PO DAILY 06/17/21 09/08/22 History Levothyroxine Sodium [Synthroid] 50 mcg PO MOTUWETHFRSA 06/17/21 09/08/22 History Naloxone HCl [Narcan] 4 mg NASAL ONCE PRN 06/17/21 09/08/22 History Nitroglycerin Sl Tabs [Nitrostat] 0.4 mg SUBLINGUAL Q5M PRN 06/17/21 09/08/22 History SUMAtriptan succinate [Imitrex] 50 mg PO BID PRN 07/08/21 09/08/22 History Apixaban [Eliquis] 5 mg PO BID 03/20/22 09/08/22 History Ergocalciferol (Vitamin D2) 1,250 mcg PO MO 03/20/22 09/08/22 History [Drisdol (50,000 Iu)] Esomeprazole Magnesium [NexIUM] 40 mg PO DAILY 03/20/22 09/08/22 History Umeclidinium Brm/Vilanterol Tr 1 puff INHALATION RT-DAILY 03/20/22 09/08/22 History [Anoro Ellipta 62.5-25 Mcg INH] amLODIPine [Norvasc] 5 mg PO DAILY 03/20/22 09/08/22 History Atorvastatin [Lipitor] 80 mg PO HS #90 tab 03/21/22 09/08/22 Rx Sennosides [Senokot] 8.6 mg PO DAILY tab 05/16/22 09/08/22 Rx Sodium Chloride Tab 1 gm PO DAILY 30 Days #30 tab 05/16/22 09/08/22 Rx Isosorbide Mononitrate ER [Imdur] 30 mg PO BID 09/08/22 09/08/22 History Levothyroxine Sodium [Synthroid] 25 mcg PO MOLINA 09/08/22 09/08/22 History Ondansetron Odt [Zofran Odt] 4 mg PO Q8HR PRN 09/08/22 09/08/22 History Pantoprazole [Protonix] 40 mg PO DAILY 09/08/22 09/08/22 History Allergies Allergy/AdvReac Type Severity Reaction Status Date / Time cefazolin Allergy Rash/Hives Verified 09/08/22 14:26 cefazolin sodium [From [facility]] Allergy Rash/Hives Verified 09/08/22 14:26 morphine AdvReac Nausea & Verified 09/08/22 14:26 Vomiting Physical Exam Vitals: Vital Signs Temp Pulse Resp BP BP Pulse Ox 09/11/22 03:51 98.1 F 92 20 169/132 93 L 09/11/22 02:00 83 16 09/11/22 00:00 97.9 F 83 16 171/86 93 L 09/10/22 20:00 81 18 09/10/22 19:59 98.1 F 81 18 166/81 98 09/10/22 11:26 18 09/10/22 11:23 97.8 F 76 18 167/84 96 09/10/22 08:00 97.5 F L 78 18 176/92 97 09/10/22 06:15 97.2 F L 77 17 170/82 96 Intake and Output 09/10/22 09/10/22 09/11/22 14:59 22:59 06:59 Other: Voiding Method Toilet Diaper # Voids 2 Skin: Atrophic, intact. General: Thin build and comfortable appearance. Head: Normocephalic, atraumatic. Eyes: Symmetric. Pupils equal round. Ears: Symmetric. Hard of hearing. Mouth: Clear. Neck: Supple. Carotid without bruit. Cardiac: Regular rate and rhythm. Lungs: Clear anteriorly and posteriorly. Abdomen: Soft active nontender. Extremities: Normal tone. Neurological: Mental status: Unable to follow commands or answer questions. Cranial nerves: Symmetric facial tone and trapezius. Motor: Active movement noxious stimulus all 4 limbs. Sensation: Intact as noted above. DTRs: Symmetric and equal throughout. Mobility: Currently in bed with rails up. Results CBC & Chem 7: 09/10/22 07:22 09/10/22 12:11 Labs: Abnormal Lab Results - Last 24 Hours (Table) 09/10/22 09/10/22 09/10/22 Range/Units 07:22 07:22 07:22 RBC 3.46 L (4.30-5.90) m/uL Hgb 11.7 L (13.0-17.5) gm/dL Hct 32.1 L (39.0-53.0) % Lymphocytes # 0.5 L (1.0-4.8) k/uL Sodium 121 L (137-145) mmol/L Potassium 3.2 L (3.5-5.1) mmol/L Chloride 89 L (98-107) mmol/L BUN 8 L (9-20) mg/dL Glucose 100 H (74-99) mg/dL Calcium 8.3 L (8.4-10.2) mg/dL Magnesium 1.5 L (1.6-2.3) mg/dL Total Protein 5.3 L (6.3-8.2) g/dL Albumin 3.2 L (3.5-5.0) g/dL 09/10/22 Range/Units 12:11 RBC (4.30-5.90) m/uL Hgb (13.0-17.5) gm/dL Hct (39.0-53.0) % Lymphocytes # (1.0-4.8) k/uL Sodium 120 L (137-145) mmol/L Potassium (3.5-5.1) mmol/L Chloride (98-107) mmol/L BUN (9-20) mg/dL Glucose (74-99) mg/dL Calcium (8.4-10.2) mg/dL Magnesium (1.6-2.3) mg/dL Total Protein (6.3-8.2) g/dL Albumin (3.5-5.0) g/dL Assessment and Plan (1) Abdominal pain Current Visit: Yes Status: Acute Code(s): R10.9 - UNSPECIFIED ABDOMINAL PAIN SNOMED Code(s): 94476443 (2) History of alcohol abuse Current Visit: Yes Status: Acute Code(s): F10.11 - ALCOHOL ABUSE, IN REMISSION SNOMED Code(s): 888749872 (3) Nausea and vomiting Current Visit: Yes Status: Acute Code(s): R11.2 - NAUSEA WITH VOMITING, UNSPECIFIED SNOMED Code(s): 08970752 (4) Abdominal aortic aneurysm, without rupture Current Visit: No Status: Acute Code(s): I71.4 - ABDOMINAL AORTIC ANEURYSM, WITHOUT RUPTURE * DO NOT USE * SNOMED Code(s): 85891583 Plan: Comments and plan: At this time patient with poor mentation. Last speech ther apy to assess communication and cognition formally for possible inpatient rehab. PT and OT notes appreciated and safety concerns noted. Must determine what discharge plan is at this time though.
[2022-09-11] MEDS: LEVOTHYROXINE 50 MCG TAB PO SCH (06:33)
[2022-09-11] MEDS: carvediloL 6.25 MG TAB PO SCH ×2 (06:33→16:29)
[2022-09-11 08:12] LABS: Calcium 8.9 mg/dL (8.4-10.2); Magnesium 1.9 mg/dL (1.6-2.3); Potassium 3.7 mmol/L (3.5-5.1)
[2022-09-11] MEDS ORDERED: DEXTROSE 5% IN WATER 1,000 ML IV ONE (08:48)
[2022-09-11] MEDS: SENNOSIDES 8.6 MG TAB PO SCH ×2 (10:28→10:52)
[2022-09-11] MEDS: DICYCLOMINE 10 MG CAP PO SCH ×2 (10:28→10:52)
[2022-09-11] MEDS: ISOSORBIDE MONONITRATE ER 30 MG TAB.ER.24H PO SCH ×3 (10:28→20:17)
[2022-09-11] MEDS: PANTOPRAZOLE 40 MG/10 ML VIAL IV SCH (10:29)
[2022-09-11] MEDS: amLODIPine 5 MG TAB PO SCH ×3 (10:29→20:16)
--- NOTE | 2022-09-11 12:06 | PN ---
PROGRESS NOTE DATE OF SERVICE: 09/10/2022 DATE OF SERVICE: 09/10/2022 HISTORY: This 77-year-old gentleman admitted after abdominal pain with possible gastritis and scheduled to have an endoscope. The patient had CT of the brain, which showed nonspecific white matter changes and remote white matter ischemia. Sodium is 120. Nephrology following the patient closely. No chest pain or palpitation. PHYSICAL EXAMINATION: VITAL SIGNS: Pulse is 76, blood pressure 116/84, and respiration 18. CHEST: Clear to auscultation. CARDIOVASCULAR: S1, S2 muffled. ABDOMEN: Soft, mild diffuse discomfort. No guarding, no rigidity noted. No mass palpable. No ascites. Bowel sounds present. LABS: Reviewed, sodium 120. ASSESSMENT: 1. Abdominal pain and vomiting, possible acute gastritis. 2. Severe hypokalemia. 3. Recent abdominal aortic aneurysm repair and left renal artery occlusion. 4. Hypertension. 5. Hyperlipidemia. 6. Multiple medical issues. RECOMMENDATIONS AND DISCUSSION: I recommend to continue current medications, symptomatic treatment. Monitor sodium closely, closely follow with Nephrology. Guarded prognosis. Further recommendations to follow. MMODL / IJN: [id number] /
[2022-09-11 12:13] LABS: Albumin 3.3 g/dL (3.5-5.0); Calcium 8.5 mg/dL (8.4-10.2); Potassium 3.1 mmol/L (3.5-5.1); Total Bilirubin 1.1 mg/dL (0.2-1.3); Total Protein 5.5 g/dL (6.3-8.2)
[2022-09-11] MEDS ORDERED: PROPOFOL 10 MG/ML 20 ML VIAL IV ONE (13:09)
[2022-09-11] MEDS ORDERED: LIDOCAINE 2% INJ 20 MG/ML (2 ML VIAL) ONE (13:09)
[2022-09-11] MEDS ORDERED: IV FLUID CONTINUATION 1,000 ML IV ONE (13:12)
--- NOTE | 2022-09-11 13:17 | P.PN ---
Subjective Patient is seen for follow-up for hyponatremia. Serum sodium did not improve with normal saline. Sodium chloride tabs were discontinued as blood pressure is significantly elevated. Urine osmolality at 327 and random urine sodium of 25. TSH is not elevated Patient denies any numbness tingling, nausea or vomiting. Patient received Samsca yesterday and sodium had improved to 131 this morning from 120 therefore he was started on D5W. Objective - Vital Signs Vital signs: Vital Signs Temp 98.1 F 09/11/22 12:25 Pulse 85 09/11/22 12:25 Resp 16 09/11/22 12:25 BP 165/81 09/11/22 12:25 Pulse Ox 91 L 09/11/22 12:25 FiO2 Intake & Output 09/10/22 09/11/22 09/11/22 18:59 06:59 18:59 Intake Total 0 Balance 0 Intake: Oral 0 Other: Voiding Method Diaper Diaper # Voids 5 - Exam Patient is sleeping, comfortable, not in any acute distress Examination of the heart S1 and S2 Examination of the lungs bilateral breath sounds are heard Abdomen is soft nontender Examination of the lower extremities shows no significant edema IRIDOLOGIST exam grossly intact - Labs CBC & Chem 7: 09/10/22 07:22 09/11/22 11:20 Labs: Abnormal Lab Results - Last 24 Hours (Table) 09/11/22 09/11/22 Range/Units 07:21 11:20 Sodium 131 L 129 L (137-145) mmol/L Potassium 3.1 L (3.5-5.1) mmol/L Chloride 95 L 96 L (98-107) mmol/L Total Protein 5.5 L (6.3-8.2) g/dL Albumin 3.3 L (3.5-5.0) g/dL Assessment and Plan Assessment: 1. Hyponatremia , euvolemic Urine osmolality is 327. Patient is status post Samsca. Initially sodium had not improved however he jumped from 120-131 today. Patient was switched to D5W and repeat sodium was 129. 2. Hypokalemia status post replacement 3. History of hypothyroidism 4. Proteinuria rule out underlying chronic kidney disease. Serum creatinine seems to be around 1 mg/dL. No history of diabetes. Plan: Continue D5W for now and monitor serum sodium closely Replace potassium
--- NOTE | 2022-09-11 13:20 | P.PCN ---
Date of Procedure: 09/11/22 Procedure(s) Performed: BRIEF HISTORY: Patient is a 77-year-old, pleasant, white male with the hospital with abdominal pain episodes of nausea vomiting for the last few weeks duration. He recently underwent abdominal CT can use and appeared and since then has been having ongoing symptoms. His and scheduled for an upper endoscopy to evaluate further. PROCEDURE PERFORMED: Esophagogastroduodenoscopy with biopsy. PREOPERATIVE DIAGNOSIS: Chronic abdominal pain associated with intermittent nausea vomiting of 2 months.. IV sedation per anesthesia. PROCEDURE: After informed consent was obtained, the patient was brought into the endoscopy unit. IV sedation was administered by Anesthesia under continuous monitoring. Initially the Olympus GIF-140 video endoscope was inserted into the mouth. Esophagus intubated without any difficulty. It was gradually advanced into the stomach and duodenum and carefully examined. The bulb and the second part of the duodenum appeared normal. The scope at this time was withdrawn to the stomach, adequately insufflated with air, and upon careful examination, mucosa of the antrum mild patchy areas of erythema and biopsies were done from this area. Mucosa, body, cardia and the fundus appeared normal. The scope was then withdrawn into the esophagus. The GE junction was located at 39 cm from the incisors. The esophagus appeared normal. There were no erosions or ulcerations seen and the patient tolerated the procedure well. IMPRESSION: 1. Mild antral gastritis. 2. No evidence of esophagitis, peptic ulcer disease or gastric outlet obstruction. RECOMMENDATIONS: The findings of this examination were discussed with the patient as well as his family. He was advised to follow with the biopsy results. He will continue with small frequent meals, Protonix every day..
[2022-09-11] MEDS: POTASSIUM CHLORIDE 10 MEQ in WATER FOR INJECTION 1 100ML.BAG IVPB SCH ×4 (13:42→19:05)
[2022-09-11] MEDS ORDERED: DEXTROSE 5% IN WATER 1,000 ML IV SCH (14:00)
[2022-09-11] MEDS ORDERED: DEXTROSE 5% IN WATER 1,000 ML with POTASSIUM CHLORIDE 40 MEQ IV SCH ×2 (14:45→15:00)
[2022-09-11 14:52] LABS: C-ANCA <1:20 Titer (<1:20)
[2022-09-11] MEDS: HEPARIN SODIUM,PORCINE/PF 5,000 UNIT/0.5 ML SYRINGE SQ SCH ×2 (16:25→20:17)
[2022-09-11] MEDS: ATORVASTATIN 80 MG TAB PO SCH (20:16)
[2022-09-12] MEDS: LORazepam 1 MG/0.5 ML VIAL IV PRN ×8 (02:13→22:58)
[2022-09-12] MEDS: carvediloL 6.25 MG TAB PO SCH ×2 (05:31→17:02)
[2022-09-12] MEDS: LEVOTHYROXINE 50 MCG TAB PO SCH (05:31)
[2022-09-12 07:00] LABS: Basophils % (A) 0 %; Eosinophils # (A) 0.1 k/uL (0-0.7); Eosinophils % (A) 1 %; HCT 38.1 % (39.0-53.0); HGB 13.5 gm/dL (13.0-17.5); Lymphocytes # (A) 0.8 k/uL (1.0-4.8); Lymphocytes % (A) 10 %; MCH 33.4 pg (25.0-35.0); MCHC 35.5 g/dL (31.0-37.0); MCV 94.1 fL (80.0-100.0); Mean Platelet Volume 7.6; Monocytes # (A) 0.6 k/uL (0-1.0); Monocytes % (A) 7 %; Neutrophils # (A) 6.7 k/uL (1.3-7.7); Neutrophils % (A) 81 %; Platelet Count 305 k/uL (150-450); RBC 4.05 m/uL (4.30-5.90); RDW 13.3 % (11.5-15.5); WBC 8.3 k/uL (3.8-10.6)
[2022-09-12 07:17] LABS: Calcium 8.9 mg/dL (8.4-10.2); Potassium 3.3 mmol/L (3.5-5.1)
[2022-09-12] MEDS ORDERED: Potassium Replacement Protocol 1 EACH MISC MISCELLANE PRN (07:41)
[2022-09-12] MEDS ORDERED: DEXTROSE 5% IN WATER 1,000 ML IV SCH (08:00)
[2022-09-12] MEDS: PANTOPRAZOLE 40 MG/10 ML VIAL IV SCH (08:21)
[2022-09-12] MEDS: POTASSIUM CHLORIDE 10 MEQ in WATER FOR INJECTION 1 100ML.BAG IVPB SCH ×4 (08:22→14:11)
[2022-09-12] MEDS: HEPARIN SODIUM,PORCINE/PF 5,000 UNIT/0.5 ML SYRINGE SQ SCH (08:22)
[2022-09-12] MEDS: amLODIPine 5 MG TAB PO SCH ×2 (08:46→19:56)
[2022-09-12] MEDS: MULTIVITAMINS, THERA 1 EACH TAB PO SCH ×2 (11:29→11:50)
[2022-09-12] MEDS: SENNOSIDES 8.6 MG TAB PO SCH ×2 (11:29→11:49)
[2022-09-12] MEDS: THIAMINE 100 MG TAB PO SCH ×2 (11:30→11:50)
[2022-09-12] MEDS: ISOSORBIDE MONONITRATE ER 30 MG TAB.ER.24H PO SCH ×3 (11:30→19:56)
[2022-09-12] MEDS: FOLIC ACID 1 MG TAB PO SCH ×2 (11:30→11:49)
--- NOTE | 2022-09-12 11:45 | P.PN ---
Subjective Patient is seen for follow-up for hyponatremia. Serum sodium did not improve with normal saline. Sodium chloride tabs were discontinued as blood pressure is significantly elevated. Urine osmolality at 327 and random urine sodium of 25. TSH is not elevated Patient denies any numbness tingling, nausea or vomiting. Patient received Samsca and sodium had improved to 131 this morning from 120 therefore he was started on D5W. Sodium and improved to about 129 and then increase back up to 135 today therefore restarted on low-dose D5W at 50 mL an hour. Currently with sitter at bedside. Patient is resting. He does not communicate much. Objective - Vital Signs Vital signs: Vital Signs Temp 98.1 F 09/12/22 11:24 Pulse 77 09/12/22 11:24 Resp 16 09/12/22 11:24 BP 158/77 09/12/22 11:24 Pulse Ox 94 L 09/12/22 11:24 FiO2 Intake & Output 09/11/22 09/12/22 09/12/22 18:59 06:59 18:59 Intake Total 100 485 Balance 100 485 Intake: IV 100 Oral 0 485 Other: Voiding Method Diaper Diaper # Voids 3 2 - Exam Patient is sleeping, arousable. comfortable, not in any acute distress Examination of the heart S1 and S2 Examination of the lungs bilateral breath sounds are heard Abdomen is soft nontender Examination of the lower extremities shows no significant edema [employer]ATE exam grossly intact - Labs CBC & Chem 7: 09/12/22 06:38 09/12/22 06:38 Labs: Abnormal Lab Results - Last 24 Hours (Table) 09/11/22 09/11/22 09/11/22 Range/Units 11:20 16:59 22:29 RBC (4.30-5.90) m/uL Hct (39.0-53.0) % Lymphocytes # (1.0-4.8) k/uL Sodium 129 L 128 L 130 L (137-145) mmol/L Potassium 3.1 L (3.5-5.1) mmol/L Chloride 96 L (98-107) mmol/L Total Protein 5.5 L (6.3-8.2) g/dL Albumin 3.3 L (3.5-5.0) g/dL 09/12/22 09/12/22 Range/Units 06:38 06:38 RBC 4.05 L (4.30-5.90) m/uL Hct 38.1 L (39.0-53.0) % Lymphocytes # 0.8 L (1.0-4.8) k/uL Sodium 135 L (137-145) mmol/L Potassium 3.3 L (3.5-5.1) mmol/L Chloride (98-107) mmol/L Total Protein (6.3-8.2) g/dL Albumin (3.5-5.0) g/dL Assessment and Plan Assessment: 1. Hyponatremia , euvolemic Urine osmolality is 327. Patient is status post Samsca. Initially sodium had not improved however he jumped from 120-131 after 30 mg of Samsca. Patient was switched to D5W and currently running at 50 mL an hour 2. Hypokalemia status post replacement 3. History of hypothyroidism 4. Proteinuria rule out underlying chronic kidney disease. Serum creatinine seems to be around 1 mg/dL. No history of diabetes. All serologies are negative. Plan: Continue D5W for now and monitor serum sodium closely Replace potassium
--- NOTE | 2022-09-12 13:08 | P.PN ---
Subjective Progress Note Date: 09/12/22 Principal diagnosis: Nausea and vomiting This is a pleasant 77-year-old male who presented to emergency department with complaints of left flank and lower abdominal pain. Has a past medical history including chronic pain syndrome, abdominal aortic aneurysm with repair, chronic nausea and vomiting, chronic hyponatremia. He had a CT of the abdomen and pelvis with contrast showing evidence of occlusion of the left renal stent. Vascular surgery was consulted for the above. Patient has a history of abdominal aortic aneurysm and underwent EVAR 05/12/[address] Anaya. Patient then was experiencing some left flank and abdominal pain and on June of this year underwent [facility] after experiencing the pain for several hours. 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 However due to the timing of vascular surgery being notified there was no surgical intervention indicated. He has been following with Dr. Anaya patient underwent a CT angiogram of the abdomen and pelvis that again redemonstrated the renal stent occlusion with small collateral flow. It is essentially no change from the current CT abdomen and pelvis from previous studies. He also is complaining of chronic nausea and vomiting that has been going on for years. He has more of a gagging complaint which he states he continuously gags but does not bring up any food. He currently denies any chest pain or shortness of breath. Still has some left lower abdominal discomfort. He has been afebrile. His last EGD and colonoscopy was done in June [address] Lobo. EGD reported sliding hiatal hernia with no obvious esophagitis or complicated reflux disease. Mild gastritis and duodenitis. Colonoscopy with findings of mild sigmoid diverticulosis. He denies any difficulty with swallowing. States though he has lost approximately 20 pound weight loss over the last 1-2 years. He currently takes Nexium and Bentyl at home. He has chronic opioid user, with a history of opioid abuse in the past. History of alcohol abuse in the past. Patient has a sitter at the bedside, she is reporting that he is just gagging not vomiting. 09/10/2022: Patient seen and examined as a follow-up for complaints of nausea and vomiting. Patient was scheduled to undergo EGD this morning however sodium still remained low at 121 and potassium dropped to 3.2. Anesthesia canceled procedure for today, he is rescheduled for tomorrow. No other acute changes through the night. Nephrology is following patient closely for hyponatremia. Patient has continued gagging episodes. no hematemesis. 09/12/2022: Patient seen and examined today as a follow-up. Patient was confused today. He underwent EGD yesterday with findings of mild antral gastritis, no evidence of esophagitis peptic ulcer disease or gastric outlet obstruction. Patient is currently nothing by mouth awaiting evaluation by speech pathology. He denies any abdominal pain, nausea or vomiting. Objective - Vital Signs Vital signs: Vital Signs Temp 97.7 F 09/11/22 20:00 Pulse 82 09/11/22 20:00 Resp 20 09/11/22 20:00 BP 168/94 09/11/22 20:00 Pulse Ox 95 09/11/22 20:00 FiO2 Intake & Output 09/11/22 09/12/22 09/12/22 18:59 06:59 18:59 Intake Total 100 485 Balance 100 485 Intake: IV 100 Oral 0 485 Other: Voiding Method Diaper Diaper # Voids 3 2 - Exam General appearance: The patient is alert, somewhat confused, appears in no acute distress. HET: Head is normocephalic and atraumatic. Conjunctiva pink. Sclera anicteric. Neck: Supple without lymphadenopathy. Abdomen: Soft, nontender, nondistended with bowel sounds. No guarding or rigidity. Extremities: Normal skin color and turgor. No pedal edema Skin: No rashes, no jaundice Neurological: Alert, pleasantly confused. - Labs CBC & Chem 7: 09/12/22 06:38 09/12/22 06:38 Labs: Abnormal Lab Results - Last 24 Hours (Table) 09/11/22 09/11/22 09/11/22 Range/Units 07:21 11:20 16:59 RBC (4.30-5.90) m/uL Hct (39.0-53.0) % Lymphocytes # (1.0-4.8) k/uL Sodium 131 L 129 L 128 L (137-145) mmol/L Potassium 3.1 L (3.5-5.1) mmol/L Chloride 95 L 96 L (98-107) mmol/L Total Protein 5.5 L (6.3-8.2) g/dL Albumin 3.3 L (3.5-5.0) g/dL 09/11/22 09/12/22 Range/Units 22:29 06:38 RBC 4.05 L (4.30-5.90) m/uL Hct 38.1 L (39.0-53.0) % Lymphocytes # 0.8 L (1.0-4.8) k/uL Sodium 130 L (137-145) mmol/L Potassium (3.5-5.1) mmol/L Chloride (98-107) mmol/L Total Protein (6.3-8.2) g/dL Albumin (3.5-5.0) g/dL Assessment and Plan (1) Nausea and vomiting Narrative/Plan: 77-year-old with multiple comorbidities presented to the emergency department with complaints of left flank pain and nausea and vomiting. States he's had nausea and vomiting for several years which she feels has been worse over the last several months since his abdominal aortic repair. He's had history of EGD and colonoscopy in 2017Dr. Nasser wished findings of gastritis, small hiatal hernia, with colonoscopy findings of sigmoid diverticulosis. Patient is currently on clear liquid diet and states he is tolerating it fine and enjoying his clear liquids. He states that he has no difficulty with swallowing or eating. States he has chronic gagging however does not actually vomit up his food. While in the room I was able to witness the patient sitting in bed and just starting to gag, more of a coughing type gag. No dry heaving or emesis. Unclear etiology at this time. Be related to hyponatremia and hypokalemia, however need to consider other possible etiologies. Will proceed with EGD tomorrow. Current Visit: Yes Status: Acute Code(s): R11.2 - NAUSEA WITH VOMITING, UNSPECIFIED SNOMED Code(s): 62450096 (2) Chronic pain syndrome Current Visit: Yes Status: Acute Code(s): G89.4 - CHRONIC PAIN SYNDROME SNOMED Code(s): 977179709 (3) History of alcohol abuse Current Visit: Yes Status: Acute Code(s): F10.11 - ALCOHOL ABUSE, IN REMISSION SNOMED Code(s): 452528093 (4) Abdominal pain Current Visit: Yes Status: Acute Code(s): R10.9 - UNSPECIFIED ABDOMINAL PAIN SNOMED Code(s): 07462298 (5) Hypokalemia Current Visit: Yes Status: Acute Code(s): E87.6 - HYPOKALEMIA SNOMED Code(s): 77282502 (6) Hyponatremia Current Visit: Yes Status: Acute Code(s): E87.1 - HYPO-OSMOLALITY AND HYPONATREMIA SNOMED Code(s): 28948648 Plan: 1. Continue symptomatic and supportive care 2. Diaper recommendations from speech therapy 3. Patient is status post EGD with findings of mild antral gastritis 4. Antiemetics as needed 5. Replace electrolytes per protocol 6. Protonix 40 mg daily GI prophylaxis 7. May resume Eliquis Thank you for this consultation, we will sign off at this time. Dr. Sarika Garcia I agree with the dictator's note, documented as a scribe by Gloria Peters.
[2022-09-12] MEDS ORDERED: SODIUM CHLORIDE 0.9% 1,000 ML with THIAMINE 100 MG, FOLIC ACID 1 MG IV ONE ×3 (13:30)
--- NOTE | 2022-09-12 14:22 | P.PN ---
Subjective Progress Note Date: 09/12/22 This is a 77-year-old male who was recently admitted with with abdominal pain possible gastritis along with nausea and vomiting and was being closely monitored. Patient was evaluated by GI underwent upper EGD endoscopy showing antral gastritis with no active bleeding and biopsies were obtained. Patient has been okay to resume eliquis per GI. Patient continues on CIWA protocol and nursing staff reports he has been requiring Ativan at least every hour. Patient is lethargic and sleeping minimally arousable becomes quite irritated and agitated at staff at times. Per nursing staff patient has also been refusing meals and medications. Nephrology also following patient is placed on D5 and water as his sodium was extremely low and has been replaced and improved with Samsca although increased rapidly. Electrolytes replaced per protocol and recommend banana bag. Patient with significant weakness and per tech at the bedside who is also sitting with him, patient was unable to stand at all. Will need aggressive PT/OT therapy and recommend daily therapy once more awake and alert. Patient is afebrile denies chest pain or shortness of breath. No reports of nausea or vomiting although nursing staff reports patient is not eating much. Review of systems: Unable to obtain as patient is sedated with Ativan and lethargic Active Medications Amlodipine Besylate (Amlodipine 5 Mg Tab) 5 mg PO BID [facility] Last Admin: 09/12/22 08:46 Dose: 5 mg Apixaban (Apixaban 5 Mg Tab) 5 mg PO BID [facility]; Protocol Atorvastatin Calcium (Atorvastatin 80 Mg Tab) 80 mg PO HS [facility] Last Admin: 09/11/22 20:16 Dose: Not Given Carvedilol (Carvedilol 6.25 Mg Tab) 6.25 mg PO BID-W/MEALS [facility] Last Admin: 09/12/22 05:31 Dose: Not Given Folic Acid (Folic Acid 1 Mg Tab) 1 mg PO DAILY@1200 [facility] Last Admin: 09/12/22 11:49 Dose: Not Given Dextrose/Water (Dextrose 5%-Water Iv Soln) 1,000 mls @ 50 mls/hr IV .Q20H [facility] Last Admin: 09/12/22 08:22 Dose: 50 mls/hr Thiamine HCl 100 mg/ Folic (Acid 1 mg/ Sodium Chloride) 1,001.2 mls @ 50 mls/hr IV .Q20H2M ONE Stop: 09/13/22 09:31 Isosorbide Mononitrate (Isosorbide Mononitrate Er 30 Mg Tab.Er.24h) 30 mg PO BID [facility] Last Admin: 09/12/22 11:49 Dose: Not Given Levothyroxine Sodium (Levothyroxine 25 Mcg Tab) 25 mcg PO MOLINA [facility] Levothyroxine Sodium (Levothyroxine 50 Mcg Tab) 50 mcg PO [id number] [facility] Last Admin: 09/12/22 05:31 Dose: Not Given Lorazepam (Lorazepam 1 Mg/0.5 Ml Vial) 1 mg IV Q1HR PRN PRN Reason: CIWA 10 to 15 Last Admin: 09/12/22 11:30 Dose: 1 mg Lorazepam (Lorazepam 1 Mg/0.5 Ml Vial) 1 mg IV Q2HR PRN PRN Reason: CIWA 8 or 9 Last Admin: 09/11/22 15:56 Dose: 1 mg Lorazepam (Lorazepam 1 Mg/0.5 Ml Vial) 2 mg IV Q10M PRN PRN Reason: CIWA 16 or higher Stop: 09/12/22 22:34 Miscellaneous Information (Magnesium Replacement Protocol 1 Each Misc) 1 each MISCELLANE DAILY PRN; Protocol PRN Reason: Per Protocol Miscellaneous Information (Potassium Replacement Protocol 1 Each Misc) 1 each MISCELLANE DAILY PRN; Protocol PRN Reason: Per Protocol Multivitamins (Multivitamins, Thera 1 Each Tab) 1 each PO DAILY@1200 [facility] Last Admin: 09/12/22 11:50 Dose: Not Given Naloxone HCl (Naloxone 0.4 Mg/Ml 1 Ml Vial) 0.2 mg IV Q2M PRN PRN Reason: Opioid Reversal Ondansetron HCl (Ondansetron 4 Mg/2 Ml Vial) 4 mg IVP Q8HR PRN PRN Reason: Nausea And Vomiting Pantoprazole Sodium (Pantoprazole 40 Mg/10 Ml Vial) 40 mg IV DAILY [facility] Last Admin: 09/12/22 08:21 Dose: 40 mg Quetiapine Fumarate (Quetiapine 25 Mg Tab) 25 mg PO [facility] Senna (Sennosides 8.6 Mg Tab) 8.6 mg PO DAILY [facility] Last Admin: 09/12/22 11:49 Dose: Not Given Sumatriptan Succinate (Sumatriptan Succinate 50 Mg Tab) 50 mg PO BID PRN PRN Reason: Migraine Headache Thiamine HCl (Thiamine 100 Mg Tab) 100 mg PO DAILY@1200 [facility] Last Admin: 09/12/22 11:50 Dose: Not Given PHYSICAL EXAMINATION: GENERAL: The patient is asleep and lethargic currently sedated on Ativan maintained on CIWA protocol, elderly male thin built, ill-appearing HEENT: Pupils are round and equally reacting to light. EOMI. no scleral icterus. No conjunctival pallor. Normocephalic, atraumatic. No pharyngeal erythema. No thyromegaly. Dry mucous membranes CARDIOVASCULAR: S1 and S2 muffled PULMONARY: diminished breath sounds bilaterally with no wheezing or rhonchi noted. ABDOMEN: soft. Nontender on exam. non-distended, normoactive bowel sounds. No palpable organomegaly. MUSCULOSKELETAL: No joint swelling or deformity. EXTREMITIES: No cyanosis, clubbing, or pedal edema. NEUROLOGICAL: Unable to completely assess as patient is just received IV Ativan. Becomes agitated easily and aggressive with staff, Diffuse weakness SKIN: No rashes. 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 Continue CIWA protocol as needed. Encouraged oral intake and increased activity as tolerated. Patient will need PT/OT therapy daily as patient is significantly weak and per nursing staff unable to stand at all on his own. Per nursing staff patient has also been aggressive and agitated especially at night and will add Seroquel. Patient on D5 water per nephrology due to rapid increase of sodium and pending repeat labs in the afternoon. Recommend banana bag and replace electrolytes per protocol. Discussion was had with family about ECF and family would like him to go when stable. Patient is not eating per nursing staff and encouraged oral int margarito. Patient has also been resistant to medications. Patient is post EGD yesterday with GI showing mild antral gastritis with no evidence of esophagitis peptic ulcer disease or gastric outlet obstruction with no bleeding noted. Okay to resume anticoagulant. Currently nothing by mouth and awaiting speech evaluation. Strongly recommend aspiration precautions. Due to multiple complex medical issues, prognosis is extremely guarded. The impression and plan of care has been dictated by Ludy Mccarthy, nurse practitioner as directed. Dr. Paulie MD I have performed a history and examination and MDM of this patient, discussed the same with the dictator, and agree with the dictator's assessment and plan as written ,documented as a scribe. Based on total visit time, I have performed more than 50% of the visit. Any additional findings or plans will be noted. Objective - Vital Signs Vital signs: Vital Signs Temp 98.4 F 09/12/22 08:16 Pulse 86 09/12/22 08:16 Resp 18 09/12/22 08:16 BP 172/94 09/12/22 08:16 Pulse Ox 97 09/12/22 08:16 FiO2 Intake & Output 09/11/22 09/12/22 09/12/22 18:59 06:59 18:59 Intake Total 100 485 Balance 100 485 Intake: IV 100 Oral 0 485 Other: Voiding Method Diaper Diaper # Voids 3 2 - Labs CBC & Chem 7: 09/12/22 06:38 09/12/22 12:51 Labs: Abnormal Lab Results - Last 24 Hours (Table) 09/11/22 09/11/22 09/11/22 Range/Units 11:20 16:59 22:29 RBC (4.30-5.90) m/uL Hct (39.0-53.0) % Lymphocytes # (1.0-4.8) k/uL Sodium 129 L 128 L 130 L (137-145) mmol/L Potassium 3.1 L (3.5-5.1) mmol/L Chloride 96 L (98-107) mmol/L Total Protein 5.5 L (6.3-8.2) g/dL Albumin 3.3 L (3.5-5.0) g/dL 09/12/22 09/12/22 Range/Units 06:38 06:38 RBC 4.05 L (4.30-5.90) m/uL Hct 38.1 L (39.0-53.0) % Lymphocytes # 0.8 L (1.0-4.8) k/uL Sodium 135 L (137-145) mmol/L Potassium 3.3 L (3.5-5.1) mmol/L Chloride (98-107) mmol/L Total Protein (6.3-8.2) g/dL Albumin (3.5-5.0) g/dL
[2022-09-12 15:02] LABS: Creatinine,Urine Random 52.6 mg/dL
[2022-09-12] MEDS ORDERED: WATER IV ONE ×3 (16:00)
[2022-09-12] MEDS ORDERED: FOLIC ACID IV ONE ×3 (16:00)
[2022-09-12] MEDS ORDERED: THIAMINE IV ONE ×3 (16:00)
[2022-09-12] MEDS ORDERED: DEXTROSE 5% IV ONE ×3 (16:00)
[2022-09-12] MEDS: APIXABAN 5 MG TAB PO SCH (19:56)
[2022-09-12] MEDS: ATORVASTATIN 80 MG TAB PO SCH (19:56)
[2022-09-12] MEDS: QUEtiapine 25 MG TAB PO SCH (19:56)
--- NOTE | 2022-09-12 20:37 | PN ---
PROGRESS NOTE DATE OF SERVICE: 09/11/2022 SUBJECTIVE: This is a 77-year-old gentleman who was admitted with abdominal pain, vomiting and possibly acute gastritis. The patient had some withdrawal symptoms also. The patient apparently was drinking alcohol, which is not corroborated by the family though. The CT scan showed some chronic small-vessel ischemia as well. No chest pain. No palpitations. The patient is confused. PAST MEDICAL HISTORY: Reviewed. REVIEW OF SYSTEMS: Could not be taken as the patient is confused. CURRENT MEDICATIONS: Reviewed include Bentyl and rest of the medications noted. PHYSICAL EXAMINATION: VITAL SIGNS: Pulse is 90, blood pressure 160/91, respirations 18. HEENT: Conjunctivae normal. NECK: No JVD. CARDIOVASCULAR: S1 and S2. RESPIRATIONS: Breath sounds diminished at the bases. A few scattered rhonchi and crackles. ABDOMEN: Soft, nontender. LEGS: No edema. NERVOUS SYSTEM: Diffusely weak. LABORATORY DATA: Sodium 120, potassium 3.0. Rest of the labs are noted. ASSESSMENT: 1. Abdominal pain, vomiting, possibly acute gastritis. 2. Change in mental status and possibly acute delirium. 3. Cerebral atherosclerosis. 4. Severe hypokalemia. 5. Recent abdominal aortic aneurysm repair and subsequent left renal artery occlusion. 6. Hypertension. 7. Hyperlipidemia. 8. Multiple medical issues. RECOMMENDATIONS: Recommend to continue current management and symptomatic treatment. We will continue with CIWA protocol. Otherwise, see orders for further details. CT scan reviewed. Discussed with the daughter at the bedside at length. Overall prognosis guarded. Supplement vitamins. Further recommendations to follow. See orders for further details. MMODL / IJN: [id number] /
[2022-09-12] MEDS ORDERED: SODIUM CHLORIDE TAB 1 GM TAB PO STA (23:37)
[2022-09-13] MEDS: LORazepam 1 MG/0.5 ML VIAL IV PRN ×7 (00:19→19:55)
[2022-09-13] MEDS: carvediloL 6.25 MG TAB PO SCH ×2 (05:53→17:17)
[2022-09-13] MEDS: LEVOTHYROXINE 50 MCG TAB PO SCH (05:53)
[2022-09-13] MEDS: APIXABAN 5 MG TAB PO SCH ×2 (09:24→19:55)
[2022-09-13] MEDS: SENNOSIDES 8.6 MG TAB PO SCH (09:24)
[2022-09-13] MEDS: amLODIPine 5 MG TAB PO SCH ×2 (09:24→19:55)
[2022-09-13] MEDS: PANTOPRAZOLE 40 MG/10 ML VIAL IV SCH (09:24)
[2022-09-13] MEDS: ISOSORBIDE MONONITRATE ER 30 MG TAB.ER.24H PO SCH ×2 (09:24→19:55)
[2022-09-13] MEDS: MULTIVITAMINS, THERA 1 EACH TAB PO SCH (09:24)
[2022-09-13 11:10] LABS: Basophils # (A) 0.1 k/uL (0-0.2); Basophils % (A) 1 %; Eosinophils % (A) 0 %; HCT 38.7 % (39.0-53.0); HGB 13.6 gm/dL (13.0-17.5); Lymphocytes % (A) 12 %; MCH 33.1 pg (25.0-35.0); MCV 94.6 fL (80.0-100.0); Mean Platelet Volume 7.8; Monocytes # (A) 0.6 k/uL (0-1.0); Monocytes % (A) 7 %; Neutrophils # (A) 6.5 k/uL (1.3-7.7); Neutrophils % (A) 78 %; Platelet Count 333 k/uL (150-450); RBC 4.09 m/uL (4.30-5.90); RDW 13.2 % (11.5-15.5); WBC 8.4 k/uL (3.8-10.6)
--- NOTE | 2022-09-13 11:14 | P.PN ---
Subjective Patient is seen in follow-up for hyponatremia. Sodium level 128 as of last night. Received sodium chloride tablet last night. Patient is quite restless. Just received a dose of Ativan. Oral intake is poor. Vital signs are stable. Blood pressure high. General: Restless. HEENT: Head exam is unremarkable. On nasal cannula. LUNGS: Breath sounds decreased. HEART: Rate and Rhythm are regular. ABDOMEN: Soft, no distention. EXTREMITITES: No edema. Objective - Vital Signs Vital signs: Vital Signs Temp 98.2 F 09/12/22 20:00 Pulse 95 09/13/22 08:00 Resp 16 09/13/22 08:00 BP 175/76 09/13/22 08:00 Pulse Ox 94 L 09/13/22 08:00 FiO2 Intake & Output 09/12/22 09/13/22 09/13/22 18:59 06:59 18:59 Intake Total 485 Balance 485 Weight 52.254 kg Intake: Oral 485 Other: Voiding Method Diaper Diaper # Voids 2 1 - Labs CBC & Chem 7: 09/12/22 06:38 09/12/22 21:31 Labs: Abnormal Lab Results - Last 24 Hours (Table) 09/12/22 09/12/22 09/12/22 Range/Units 12:51 13:11 18:06 Sodium 133 L 131 L (137-145) mmol/L U Random Total Protein >600 H (<12) mg/dL 09/12/22 Range/Units 21:31 Sodium 128 L (137-145) mmol/L U Random Total Protein (<12) mg/dL Assessment and Plan Plan: Assessment: 1. Hyponatremia from poor solute intake. Urine sodium 25 and urine osmolality 327. Status post Samsca and subsequently D5W to slow the rapid correction. Sodium level 128 last night. TSH normal. 2. Proteinuria. Serologies have been negative. 3. DTs. 4. Benign hypertension. 5. Hypokalemia from poor intake. Replaced. Plan: Follow-up morning labs. Currently off IV fluids. Check complements and anti-PLAR2. Check 24-hour urine for protein. Add IVAN inhibitor. Will consider kidney biopsy once patient more medically stable.
[2022-09-13 11:21] LABS: Albumin 3.6 g/dL (3.5-5.0); Calcium 8.5 mg/dL (8.4-10.2); Total Bilirubin 1.2 mg/dL (0.2-1.3); Total Protein 5.9 g/dL (6.3-8.2)
[2022-09-13] MEDS ORDERED: Potassium Replacement Protocol 1 EACH MISC MISCELLANE PRN (11:39)
[2022-09-13] MEDS: POTASSIUM CHLORIDE ER 20 MEQ TAB.ER PO SCH (12:22)
[2022-09-13] MEDS: lisinopriL 10 MG TAB PO SCH ×2 (12:22→19:55)
[2022-09-13] MEDS: IPRATROPIUM-ALBUTEROL 3 ML NEB INHALATION SCH ×3 (12:34→20:20)
--- NOTE | 2022-09-13 13:08 | XR ---
EXAMINATION TYPE: XR chest 1V DATE OF EXAM: 09/13/2022 CLINICAL HISTORY: Difficulty breathing pneumonia progress study. TECHNIQUE: Single AP portable upright view of the chest is obtained. COMPARISON: Chest x-ray from 5 days earlier FINDINGS: Background chronic emphysematous change with improved aeration bilaterally. Cardiac silhou ette size is stable and within normal limits with dual lead pacemaker. Osseous structures remain brady neralized. Stent graft in the aorta just below diaphragm redemonstrated. IMPRESSION: Improved bilateral multifocal edema and/or infiltrates. No new acute infiltrate noted.
[2022-09-13] MEDS: DEXTROSE 5% IN WATER 1,000 ML IV SCH (17:03)
--- NOTE | 2022-09-13 18:59 | P.PN ---
Subjective Progress Note Date: 09/13/22 This is a 77-year-old male who was recently admitted with with abdominal pain possible gastritis along with nausea and vomiting and was being closely monitored. Patient was evaluated by GI underwent upper EGD endoscopy showing antral gastritis with no active bleeding and biopsies were obtained. Patient has been okay to resume eliquis per GI. Patient continues on CIWA protocol and nursing staff reports he has been requiring Ativan at least every hour. Patient is lethargic and sleeping minimally arousable becomes quite irritated and agitated at staff at times. Per nursing staff patient has also been refusing meals and medications. Nephrology also following patient is placed on D5 and water as his sodium was extremely low and has been replaced and improved with Samsca although increased rapidly. Electrolytes replaced per protocol and recommend banana bag. Patient with significant weakness and per tech at the bedside who is also sitting with him, patient was unable to stand at all. Will need aggressive PT/OT therapy and recommend daily therapy once more awake and alert. Patient is afebrile denies chest pain or shortness of breath. No reports of nausea or vomiting although nursing staff reports patient is not eating much. 09/13/2022 Patient is seen today in follow up and continued on CIWA. Nephrology following for hyponatremia and was on D5 water and improved although being discontinued and to get a sodium tab. Patient needs supervision with meals and aspiration precautions. High risk for aspirations. Patient is afebrile and no reports of chest pain. Patient is on 2L via NC and will obtain chest xray. Recommend repeat labs. Replace electrolytes per protocol. Review of systems: Unable to obtain as patient is sedated with Ativan and lethargic PHYSICAL EXAMINATION: GENERAL: The patient is asleep and lethargic but arousable, maintained on CIWA protocol, elderly male thin built, ill-appearing HEENT: Pupils are round and equally reacting to light. EOMI. no scleral icterus. No conjunctival pallor. Normocephalic, atraumatic. No pharyngeal erythema. No thyromegaly. Dry mucous membranes CARDIOVASCULAR: S1 and S2 muffled PULMONARY: diminished breath sounds bilaterally with no wheezing or rhonchi noted. ABDOMEN: soft. Nontender on exam. non-distended, normoactive bowel sounds. No palpable organomegaly. MUSCULOSKELETAL: No joint swelling or deformity. EXTREMITIES: No cyanosis, clubbing, or pedal edema. NEUROLOGICAL: Unable to completely assess as patient is lethargic. Diffuse weakness SKIN: No rashes. 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 Continue CIWA protocol as needed. Encouraged oral intake and increased activity as tolerated. Patient will need PT/OT therapy daily as patient is significantly weak and per nursing staff unable to stand at all on his own. Patient on D5 water per nephrology and being held as sodium is now decreased and given a sodium tab. Recommend repeat labs in am. Encouraged oral intake. Okay to resume ant icoagulant per GI. Strongly recommend aspiration precautions. Due to multiple complex medical issues, prognosis is extremely guarded. The impression and plan of care has been dictated as a scribe by Ludy Mccarthy, nurse practitioner as directed. Dr. Paulie MD I have performed a history and examination and MDM of this patient, discussed the same with the dictator, and has been documented as a scribe. Based on total visit time, I have performed more than 50% of the visit. Any additional findings or plans will be noted. Objective - Vital Signs Vital signs: Vital Signs Temp 98.2 F 09/12/22 20:00 Pulse 94 09/13/22 16:00 Resp 16 09/13/22 16:00 BP 110/72 09/13/22 16:00 Pulse Ox 95 09/13/22 16:00 FiO2 Intake & Output 09/12/22 09/13/22 09/13/22 18:59 06:59 18:59 Intake Total 485 240 Balance 485 240 Weight 52.254 kg Intake: Oral 485 240 Other: Voiding Method Diaper Diaper Diaper # Voids 2 1 1 - Labs CBC & Chem 7: 09/13/22 09:16 09/13/22 09:16 Labs: Abnormal Lab Results - Last 24 Hours (Table) 09/12/22 09/13/22 09/13/22 Range/Units 21:31 09:16 09:16 RBC 4.09 L (4.30-5.90) m/uL Hct 38.7 L (39.0-53.0) % Sodium 128 L 133 L (137-145) mmol/L Potassium 3.0 L (3.5-5.1) mmol/L Chloride 95 L (98-107) mmol/L Total Protein 5.9 L (6.3-8.2) g/dL
[2022-09-13] MEDS: ATORVASTATIN 80 MG TAB PO SCH (19:55)
[2022-09-13] MEDS: QUEtiapine 25 MG TAB PO SCH (19:55)
[2022-09-14] MEDS ORDERED: IPRATROPIUM-ALBUTEROL 3 ML NEB ONE (00:03)
[2022-09-14] MEDS: IPRATROPIUM-ALBUTEROL 3 ML NEB INHALATION SCH ×6 (00:10→20:16)
[2022-09-14] MEDS: carvediloL 6.25 MG TAB PO SCH ×2 (06:16→17:16)
[2022-09-14] MEDS ORDERED: LEVOTHYROXINE 25 MCG TAB PO SCH (06:30)
[2022-09-14] MEDS: APIXABAN 5 MG TAB PO SCH (09:08)
[2022-09-14] MEDS: PANTOPRAZOLE 40 MG/10 ML VIAL IV SCH (09:08)
[2022-09-14] MEDS: SENNOSIDES 8.6 MG TAB PO SCH (09:08)
[2022-09-14] MEDS: MULTIVITAMINS, THERA 1 EACH TAB PO SCH (09:09)
[2022-09-14] MEDS: LORazepam 1 MG/0.5 ML VIAL IV PRN (09:09)
[2022-09-14 09:58] LABS: Calcium 8.6 mg/dL (8.4-10.2); Potassium 3.2 mmol/L (3.5-5.1)
[2022-09-14] MEDS ORDERED: POTASSIUM CHLORIDE ER 20 MEQ TAB.ER PO STA (10:02)
--- NOTE | 2022-09-14 10:04 | P.PN ---
Subjective Patient is seen in follow-up for hyponatremia. Sodium level 136 today. Patient has been quite confused and restless. Currently sleeping. Oral intake fair. Has to be fed. Vital signs are stable. Blood pressure in the lower side this morning. General: Restless. HEENT: Head exam is unremarkable. On nasal cannula. LUNGS: Breath sounds decreased. HEART: Rate and Rhythm are regular. ABDOMEN: Soft, no distention. EXTREMITITES: No edema. Objective - Vital Signs Vital signs: Vital Signs Temp 97.8 F 09/13/22 20:00 Pulse 94 09/14/22 08:47 Resp 16 09/14/22 08:00 BP 90/51 09/14/22 08:00 Pulse Ox 94 L 09/14/22 08:39 FiO2 Intake & Output 09/13/22 09/14/22 09/14/22 18:59 06:59 18:59 Intake Total 240 970 Balance 240 970 Intake: Oral 240 970 Other: Voiding Method Diaper Diaper # Voids 1 2 - Labs CBC & Chem 7: 09/13/22 09:16 09/13/22 09:16 Labs: Abnormal Lab Results - Last 24 Hours (Table) 09/13/22 09/13/22 Range/Units 09:16 09:16 RBC 4.09 L (4.30-5.90) m/uL Hct 38.7 L (39.0-53.0) % Sodium 133 L (137-145) mmol/L Potassium 3.0 L (3.5-5.1) mmol/L Chloride 95 L (98-107) mmol/L Total Protein 5.9 L (6.3-8.2) g/dL Assessment and Plan Plan: Assessment: 1. Hyponatremia from poor solute intake. Urine sodium 25 and urine osmolality 327. Status post Samsca and subsequently D5W to slow the rapid correction. Sodium level 136 today. TSH normal. 2. Proteinuria. Serologies have been negative. 3. DTs. 4. Benign hypertension. Blood pressure low this morning. 5. Hypokalemia from poor intake. Replaced. Still oh today. Plan: Currently off IV fluids. Follow-up anti-PLAR2 as well as serum light chains. 24-hour urine for protein - to be collected today if patient cooperates. Stop amlodipine. Hold Coreg for systolic blood pressure less than 120. Hold lisinoprilfor systolic blood pressure less than 115. Replace potassium. Will consider kidney biopsy once patient more medically stable. Prognosis guarded.
[2022-09-14] MEDS: MAGNESIUM SULFATE-D5W PMX 1 GM in DEXTROSE/WATER 1 100ML.BAG IVPB SCH ×2 (11:56→14:33)
[2022-09-14] MEDS: ISOSORBIDE MONONITRATE ER 30 MG TAB.ER.24H PO SCH ×2 (11:57→20:57)
[2022-09-14] MEDS: SODIUM CHLORIDE 0.9% 1,000 ML IV SCH (11:57)
[2022-09-14] MEDS: DEXTROSE 5% IN WATER 1,000 ML IV SCH (14:23)
[2022-09-14] MEDS: lisinopriL 10 MG TAB PO SCH (14:23)
[2022-09-14] MEDS: amLODIPine 5 MG TAB PO SCH (14:23)
[2022-09-14] MEDS: QUEtiapine 25 MG TAB PO SCH (20:56)
[2022-09-14] MEDS: ATORVASTATIN 80 MG TAB PO SCH (20:56)
[2022-09-14] MEDS: APIXABAN 2.5 MG TABLET PO SCH (20:57)
[2022-09-15] MEDS: IPRATROPIUM-ALBUTEROL 3 ML NEB INHALATION SCH ×7 (00:34→23:46)
--- NOTE | 2022-09-15 03:31 | P.PN ---
Subjective Progress Note Date: 09/14/22 This is a 77-year-old male who was recently admitted with with abdominal pain possible gastritis along with nausea and vomiting and was being closely monitored. Patient was evaluated by GI underwent upper EGD endoscopy showing antral gastritis with no active bleeding and biopsies were obtained. Patient has been okay to resume eliquis per GI. Patient continues on CIWA protocol and nursing staff reports he has been requiring Ativan at least every hour. Patient is lethargic and sleeping minimally arousable becomes quite irritated and agitated at staff at times. Per nursing staff patient has also been refusing meals and medications. Nephrology also following patient is placed on D5 and water as his sodium was extremely low and has been replaced and improved with Samsca although increased rapidly. Electrolytes replaced per protocol and recommend banana bag. Patient with significant weakness and per tech at the bedside who is also sitting with him, patient was unable to stand at all. Will need aggressive PT/OT therapy and recommend daily therapy once more awake and alert. Patient is afebrile denies chest pain or shortness of breath. No reports of nausea or vomiting although nursing staff reports patient is not eating much. 09/13/2022 Patient is seen today in follow up and continued on CIWA. Nephrology following for hyponatremia and was on D5 water and improved although being discontinued and to get a sodium tab. Patient needs supervision with meals and aspiration precautions. High risk for aspirations. Patient is afebrile and no reports of chest pain. Patient is on 2L via NC and will obtain chest xray. Recommend repeat labs. Replace electrolytes per protocol. 09/14/2022 Patient is seen today with family at bedside. Patient continues with confusion and agitation with minimal eating. Patient is extremely weak and lethargic. Continues to require ativan. Nephrology following and creatinine is worsened today and blood pressures are low recommending holding BP meds and start IV normal saline with repeat labs ordered. Will have PT/OT therapy evaluate if patient is able to. Prognosis is guarded. Multiple electrolyte abnormalities and will replace per protocol. Review of systems: Unable to obtain as patient is sedated with Ativan and lethargic Active Medications Albuterol/Ipratropium (Ipratropium-Albuterol 3 Ml Neb) 3 ml INHALATION RT-Q4H [facility] Last Admin: 09/15/22 00:34 Dose: 3 ml Apixaban (Apixaban 2.5 Mg Tablet) 2.5 mg PO BID [facility]; Protocol Last Admin: 09/14/22 20:57 Dose: 2.5 mg Atorvastatin Calcium (Atorvastatin 80 Mg Tab) 80 mg PO HS [facility] Last Admin: 09/14/22 20:56 Dose: 80 mg Carvedilol (Carvedilol 6.25 Mg Tab) 6.25 mg PO BID-W/MEALS [facility] Last Admin: 09/14/22 17:16 Dose: 6.25 mg Sodium Chloride (Saline 0.9%) 1,000 mls @ 70 mls/hr IV .[id number] [facility] Last Admin: 09/14/22 11:57 Dose: 70 mls/hr Isosorbide Mononitrate (Isosorbide Mononitrate Er 30 Mg Tab.Er.24h) 30 mg PO BID [facility] Last Admin: 09/14/22 20:57 Dose: 30 mg Levothyroxine Sodium (Levothyroxine 25 Mcg Tab) 25 mcg PO MOLINA [facility] Last Admin: 09/14/22 06:16 Dose: Not Given Levothyroxine Sodium (Levothyroxine 50 Mcg Tab) 50 mcg PO [id number] [facility] Last Admin: 09/13/22 05:53 Dose: 50 mcg Lorazepam (Lorazepam 1 Mg/0.5 Ml Vial) 1 mg IV Q1HR PRN PRN Reason: CIWA 10 to 15 Last Admin: 09/14/22 09:09 Dose: 1 mg Lorazepam (Lorazepam 1 Mg/0.5 Ml Vial) 1 mg IV Q2HR PRN PRN Reason: CIWA 8 or 9 Last Admin: 09/12/22 17:02 Dose: 1 mg Miscellaneous Information (Magnesium Replacement Protocol 1 Each Misc) 1 each MISCELLANE DAILY PRN; Protocol PRN Reason: Per Protocol Miscellaneous Information (Potassium Replacement Protocol 1 Each Misc) 1 each MISCELLANE DAILY PRN; Protocol PRN Reason: Per Protocol Miscellaneous Information (Potassium Replacement Protocol 1 Each Misc) 1 each MISCELLANE DAILY PRN; Protocol PRN Reason: Per Protocol Multivitamins (Multivitamins, Thera 1 Each Tab) 1 each PO DAILY@1200 [facility] Last Admin: 09/14/22 09:09 Dose: 1 each Naloxone HCl (Naloxone 0.4 Mg/Ml 1 Ml Vial) 0.2 mg IV Q2M PRN PRN Reason: Opioid Reversal Ondansetron HCl (Ondansetron 4 Mg/2 Ml Vial) 4 mg IVP Q8HR PRN PRN Reason: Nausea And Vomiting Pantoprazole Sodium (Pantoprazole 40 Mg/10 Ml Vial) 40 mg IV DAILY [facility] Last Admin: 09/14/22 09:08 Dose: 40 mg Quetiapine Fumarate (Quetiapine 25 Mg Tab) 25 mg PO HS [facility] Last Admin: 09/14/22 20:56 Dose: 25 mg Senna (Sennosides 8.6 Mg Tab) 8.6 mg PO DAILY [facility] Last Admin: 09/14/22 09:08 Dose: 8.6 mg Sumatriptan Succinate (Sumatriptan Succinate 50 Mg Tab) 50 mg PO BID PRN PRN Reason: Migraine Headache PHYSICAL EXAMINATION: GENERAL: The patient is asleep and lethargic but arousable, confused and agitated at times. maintained on CIWA protocol, elderly male thin built, ill- appearing HEENT: Pupils are round and equally reacting to light. EOMI. no scleral icterus. No conjunctival pallor. Normocephalic, atraumatic. No pharyngeal erythema. No thyromegaly. Dry mucous membranes CARDIOVASCULAR: S1 and S2 muffled PULMONARY: diminished breath sounds bilaterally with no wheezing or rhonchi noted. ABDOMEN: soft. Nontender on exam. non-distended, normoactive bowel sounds. No palpable organomegaly. MUSCULOSKELETAL: No joint swelling or deformity. EXTREMITIES: No cyanosis, clubbing, or pedal edema. NEUROLOGICAL: Unable to completely assess as patient is lethargic. Diffuse weakness SKIN: No rashes. 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 Continue CIWA protocol as needed. Encouraged oral intake and increased activity as tolerated. Patient will need PT/OT therapy daily as patient is significantly weak and per nursing staff unable to stand at all on his own. Patient was off fluids with nephrology following. Kidney functions elevated today and will hold bp meds and start IV normal saline. Replace electrolytes per protocol. Recommend repeat labs in am. Encouraged oral intake. Strongly recommend aspiration precautions. Due to multiple complex medical issues, prognosis is extremely guarded. The impression and plan of care has been dictated as a scribe by Ludy Mccarthy, nurse practitioner as directed. Dr. Paulie MD I have performed a history and examination and MDM of this patient, discussed the same with the dictator, and has been documented as a scribe. Based on total visit time, I have performed more than 50% of the visit. Any additional findings or plans will be noted. Objective - Vital Signs Vital signs: Vital Signs Temp 97.8 F 09/13/22 20:00 Pulse 94 09/14/22 08:47 Resp 16 09/14/22 08:00 BP 90/51 09/14/22 08:00 Pulse Ox 94 L 09/14/22 08:39 FiO2 Intake & Output 09/13/22 09/14/22 09/14/22 18:59 06:59 18:59 Intake Total 240 970 Balance 240 970 Intake: Oral 240 970 Other: Voiding Method Diaper Diaper # Voids 1 2 - Labs CBC & Chem 7: 09/13/22 09:16 09/14/22 08:50 Labs: Abnormal Lab Results - Last 24 Hours (Table) 09/13/22 09/13/22 Range/Units 09:16 09:16 RBC 4.09 L (4.30-5.90) m/uL Hct 38.7 L (39.0-53.0) % Sodium 133 L (137-145) mmol/L Potassium 3.0 L (3.5-5.1) mmol/L Chloride 95 L (98-107) mmol/L Total Protein 5.9 L (6.3-8.2) g/dL
[2022-09-15] MEDS: LORazepam 1 MG/0.5 ML VIAL IV PRN ×2 (03:33→18:40)
[2022-09-15] MEDS: carvediloL 6.25 MG TAB PO SCH ×2 (06:22→18:40)
[2022-09-15] MEDS: LEVOTHYROXINE 50 MCG TAB PO SCH (06:23)
[2022-09-15 08:29] LABS: Calcium 7.9 mg/dL (8.4-10.2); Potassium 3.3 mmol/L (3.5-5.1)
--- NOTE | 2022-09-15 09:31 | P.PN ---
Subjective Patient is seen in follow-up for hyponatremia and acute kidney injury. Sodium level 131 today. Patient has been quite confused and restless. Currently sleeping. Oral intake fair. Has to be fed. Blood pressure 118/71 this morning. Vital signs are stable. General: Restless. HEENT: Head exam is unremarkable. On nasal cannula. LUNGS: Breath sounds decreased. HEART: Rate and Rhythm are regular. ABDOMEN: Soft, no distention. EXTREMITITES: No edema. Objective - Vital Signs Vital signs: Vital Signs Temp 97.0 F L 09/14/22 20:00 Pulse 87 09/15/22 08:06 Resp 18 09/15/22 04:00 BP 118/71 09/15/22 04:00 Pulse Ox 94 L 09/15/22 07:59 FiO2 Intake & Output 09/14/22 09/15/22 09/15/22 18:59 06:59 18:59 Intake Total 400 Output Total 200 Balance 400 -200 Intake: Intake, IV Titration 400 Amount Magnesium Sulfate-D5w Pmx 200 1 gm In Dextrose/Water 1 100ml.bag @ 100 mls/hr IVPB Q1H [facility] Rx#: [id number] Sodium Chloride 0.9% 1, 200 000 ml @ 70 mls/hr IV . [id number] [facility] Rx#:[id number] Output: Urine 200 Other: Voiding Method Diaper Indwelling Catheter # Voids 75 - Labs CBC & Chem 7: 09/13/22 09:16 09/15/22 07:19 Labs: Abnormal Lab Results - Last 24 Hours (Table) 09/14/22 09/15/22 Range/Units 08:50 07:19 Sodium 136 L 131 L (137-145) mmol/L Potassium 3.2 L 3.3 L (3.5-5.1) mmol/L Carbon Dioxide 21 L 19 L (22-30) mmol/L BUN 23 H 29 H (9-20) mg/dL Creatinine 2.14 H 2.57 H (0.66-1.25) mg/dL Glucose 139 H 101 H (74-99) mg/dL Calcium 7.9 L (8.4-10.2) mg/dL Assessment and Plan Plan: Assessment: 1. Hyponatremia from poor solute intake. Urine sodium 25 and urine osmolality 327. Status post Samsca and subsequently D5W to slow the rapid correction. Sodium level 131 today. TSH normal. 2. Proteinuria. ?GN. Serologies have been negative. 3. DTs. 4. Benign hypertension. Blood pressure stable this morning. 5. Hypokalemia from poor intake. Replaced. Still low today. 6. Metabolic acidosis secondary to acute kidney injury and IV fluids. 7. Acute kidney injury secondary to ATN secondary to hypotension. Creatinine 2.57 today. Plan: Maintain IV fluids. Maintain Saunders catheter. Follow-up anti-PLAR2 as well as serum light chains. 24-hour urine for protein pending. Hold Coreg for systolic blood pressure less than 120. Amlodipine and lisinopril discontinued. Replace potassium. Add oral bicarbonate. Add sodium chloride tabs. Will consider kidney biopsy once patient more medically stable. Repeat BMP this afternoon. Check chest x-ray as well. Prognosis guarded.
--- NOTE | 2022-09-15 11:02 | XR ---
EXAMINATION TYPE: XR chest 1V DATE OF EXAM: 09/15/2022 9:48 AM COMPARISON: Chest radiographs from 09/13/2022 TECHNIQUE: XR chest 1V Portable AP radiograph of the chest. CLINICAL INDICATION:Male, 77 years old with history of sob; FINDINGS: Lungs/Pleura: There is no evidence of pleural effusion, focal consolidation, or pneumothorax. Pulmonary vascularity: Unremarkable. Heart/mediastinum: Cardiomediastinal silhouette is unremarkable. Three lead cardiac conduction device overlying the left hemithorax with lead tips projecting over the right ventricle, right atrium and c oronary sinus. Musculoskeletal: No acute osseous pathology. There is lower spine fixation hardware is present. IMPRESSION: No acute cardiopulmonary disease/process. Resolution of prior airspace opacities.
[2022-09-15 11:53] LABS: Anti-DNA, DS unit <1.0 IU/mL; DNA Double-Stranded NEGATIVE (NEGATIVE)
[2022-09-15] MEDS: PANTOPRAZOLE 40 MG/10 ML VIAL IV SCH (13:27)
[2022-09-15] MEDS: APIXABAN 2.5 MG TABLET PO SCH ×4 (13:29→20:10)
[2022-09-15] MEDS: POTASSIUM CHLORIDE ER 20 MEQ TAB.ER PO STA ×2 (13:29→13:45)
[2022-09-15] MEDS: MULTIVITAMINS, THERA 1 EACH TAB PO SCH ×2 (13:29→13:45)
[2022-09-15] MEDS: SODIUM CHLORIDE TAB 1 GM TAB PO SCH ×3 (13:30→19:59)
[2022-09-15] MEDS: ISOSORBIDE MONONITRATE ER 30 MG TAB.ER.24H PO SCH ×3 (13:30→19:58)
[2022-09-15] MEDS: SENNOSIDES 8.6 MG TAB PO SCH ×2 (13:30→13:45)
[2022-09-15] MEDS ORDERED: ACETAMINOPHEN IV (For NPO) 1,000 MG in EMPTY BAG 1 BAG IVPB SCH (14:00)
[2022-09-15 15:06] LABS: Total Volume 24 Hour,Urine 225 mls (250-2400)
[2022-09-15 16:19] LABS: Total Protein 24 Hour,Urine >600 mg/24hr (42.0-225.0)
[2022-09-15 16:26] LABS: Potassium 3.6 mmol/L (3.5-5.1)
[2022-09-15] MEDS: SODIUM BICARBONATE TAB 650 MG TAB PO SCH ×2 (17:12→19:58)
[2022-09-15] MEDS ORDERED: POTASSIUM CHLORIDE ER 20 MEQ TAB.ER PO STA (17:12)
[2022-09-15] MEDS: ATORVASTATIN 80 MG TAB PO SCH (19:58)
[2022-09-15] MEDS: ACETAMINOPHEN TAB 325 MG TAB PO PRN (19:58)
[2022-09-15] MEDS: QUEtiapine 25 MG TAB PO SCH ×2 (19:58→20:11)
[2022-09-15] MEDS: SODIUM CHLORIDE 0.9% 1,000 ML IV SCH ×2 (20:18→20:19)
[2022-09-16] MEDS: LORazepam 1 MG/0.5 ML VIAL IV PRN ×3 (00:23→10:14)
[2022-09-16] MEDS: IPRATROPIUM-ALBUTEROL 3 ML NEB INHALATION SCH ×6 (03:45→23:09)
--- NOTE | 2022-09-16 05:11 | P.PN ---
Subjective Progress Note Date: 09/15/22 This is a 77-year-old male who was recently admitted with with abdominal pain possible gastritis along with nausea and vomiting and was being closely monitored. Patient was evaluated by GI underwent upper EGD endoscopy showing antral gastritis with no active bleeding and biopsies were obtained. Patient has been okay to resume eliquis per GI. Patient continues on CIWA protocol and nursing staff reports he has been requiring Ativan at least every hour. Patient is lethargic and sleeping minimally arousable becomes quite irritated and agitated at staff at times. Per nursing staff patient has also been refusing meals and medications. Nephrology also following patient is placed on D5 and water as his sodium was extremely low and has been replaced and improved with Samsca although increased rapidly. Electrolytes replaced per protocol and recommend banana bag. Patient with significant weakness and per tech at the bedside who is also sitting with him, patient was unable to stand at all. Will need aggressive PT/OT therapy and recommend daily therapy once more awake and alert. Patient is afebrile denies chest pain or shortness of breath. No reports of nausea or vomiting although nursing staff reports patient is not eating much. 09/13/2022 Patient is seen today in follow up and continued on CIWA. Nephrology following for hyponatremia and was on D5 water and improved although being discontinued and to get a sodium tab. Patient needs supervision with meals and aspiration precautions. High risk for aspirations. Patient is afebrile and no reports of chest pain. Patient is on 2L via NC and will obtain chest xray. Recommend repeat labs. Replace electrolytes per protocol. 09/14/2022 Patient is seen today with family at bedside. Patient continues with confusion and agitation with minimal eating. Patient is extremely weak and lethargic. Continues to require ativan. Nephrology following and creatinine is worsened today and blood pressures are low recommending holding BP meds and start IV normal saline with repeat labs ordered. Will have PT/OT therapy evaluate if patient is able to. Prognosis is guarded. Multiple electrolyte abnormalities and will replace per protocol. 09/15/2022 Patient is seen today and is lethargic but arousable. Patient continues with agitation and confusion and continued on ativan and also seroquel. May lower the dose of seroquel. Nephrology following closely with worsening kidney functions and not making much urine. Patient is barely eating. Extreme weakness with complaints of pain per family. Recommend to replace electrolytes per protocol and follow up with am labs. IV fluids discontinued for now and continued on oral bicarb and salt tabs. Review of systems: Unable to obtain as patient is sedated with Ativan and lethargic Active Medications Acetaminophen (Acetaminophen Tab 325 Mg Tab) 650 mg PO Q6HR PRN PRN Reason: Fever and/ or Pain Last Admin: 09/15/22 19:58 Dose: 650 mg Albuterol/Ipratropium (Ipratropium-Albuterol 3 Ml Neb) 3 ml INHALATION RT-Q4H [facility] Last Admin: 09/16/22 03:45 Dose: 3 ml Apixaban (Apixaban 2.5 Mg Tablet) 2.5 mg PO BID [facility]; Protocol Last Admin: 09/15/22 20:10 Dose: 2.5 mg Atorvastatin Calcium (Atorvastatin 80 Mg Tab) 80 mg PO HS [facility] Last Admin: 09/15/22 19:58 Dose: 80 mg Carvedilol (Carvedilol 6.25 Mg Tab) 6.25 mg PO BID-W/MEALS [facility] Last Admin: 09/15/22 18:40 Dose: Not Given Sodium Chloride (Saline 0.9%) 1,000 mls @ 70 mls/hr IV .[id number] [facility] Last Admin: 09/15/22 20:19 Dose: Not Given Isosorbide Mononitrate (Isosorbide Mononitrate Er 30 Mg Tab.Er.24h) 30 mg PO BID [facility] Last Admin: 09/15/22 19:58 Dose: 30 mg Levothyroxine Sodium (Levothyroxine 25 Mcg Tab) 25 mcg PO MOLINA [facility] Last Admin: 09/14/22 06:16 Dose: Not Given Levothyroxine Sodium (Levothyroxine 50 Mcg Tab) 50 mcg PO [id number] [facility] Last Admin: 09/15/22 06:23 Dose: Not Given Lorazepam (Lorazepam 1 Mg/0.5 Ml Vial) 1 mg IV Q1HR PRN PRN Reason: CIWA 10 to 15 Last Admin: 09/16/22 03:37 Dose: 1 mg Lorazepam (Lorazepam 1 Mg/0.5 Ml Vial) 1 mg IV Q2HR PRN PRN Reason: CIWA 8 or 9 Last Admin: 09/15/22 03:33 Dose: 1 mg Miscellaneous Information (Magnesium Replacement Protocol 1 Each Misc) 1 each MISCELLANE DAILY PRN; Protocol PRN Reason: Per Protocol Miscellaneous Information (Potassium Replacement Protocol 1 Each Misc) 1 each MISCELLANE DAILY PRN; Protocol PRN Reason: Per Protocol Miscellaneous Information (Potassium Replacement Protocol 1 Each Misc) 1 each MISCELLANE DAILY PRN; Protocol PRN Reason: Per Protocol Multivitamins (Multivitamins, Thera 1 Each Tab) 1 each PO DAILY@1200 [facility] Last Admin: 09/15/22 13:45 Dose: 1 each Naloxone HCl (Naloxone 0.4 Mg/Ml 1 Ml Vial) 0.2 mg IV Q2M PRN PRN Reason: Opioid Reversal Ondansetron HCl (Ondansetron 4 Mg/2 Ml Vial) 4 mg IVP Q8HR PRN PRN Reason: Nausea And Vomiting Pantoprazole Sodium (Pantoprazole 40 Mg/10 Ml Vial) 40 mg IV DAILY [facility] Last Admin: 09/15/22 13:27 Dose: 40 mg Quetiapine Fumarate (Quetiapine 25 Mg Tab) 25 mg PO HS [facility] Last Admin: 09/15/22 20:11 Dose: 25 mg Senna (Sennosides 8.6 Mg Tab) 8.6 mg PO DAILY [facility] Last Admin: 09/15/22 13:45 Dose: 8.6 mg Sodium Bicarbonate (Sodium Bicarbonate Tab 650 Mg Tab) 650 mg PO BID [facility] Last Admin: 09/15/22 19:58 Dose: 650 mg Sodium Chloride (Sodium Chloride Tab 1 Gm Tab) 1 gm PO BID [facility] Last Admin: 09/15/22 19:59 Dose: 1 gm Sumatriptan Succinate (Sumatriptan Succinate 50 Mg Tab) 50 mg PO BID PRN PRN Reason: Migraine Headache PHYSICAL EXAMINATION: GENERAL: The patient is asleep and lethargic but arousable, confused and agitated at times. maintained on CIWA protocol, elderly male thin built, ill-charleen earing HEENT: Pupils are round and equally reacting to light. EOMI. no scleral icterus. No conjunctival pallor. Normocephalic, atraumatic. No pharyngeal erythema. No thyromegaly. Dry mucous membranes CARDIOVASCULAR: S1 and S2 muffled PULMONARY: diminished breath sounds bilaterally with no wheezing or rhonchi noted. ABDOMEN: soft. Nontender on exam. non-distended, normoactive bowel sounds. No palpable organomegaly. MUSCULOSKELETAL: No joint swelling or deformity. EXTREMITIES: No cyanosis, clubbing, or pedal edema. NEUROLOGICAL: Unable to completely assess as patient is lethargic. Diffuse weakness SKIN: No rashes. 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 Continue CIWA protocol as needed. Encouraged oral intake and increased activity as tolerated. Patient will need PT/OT therapy daily as patient is significantly weak and per nursing staff unable to stand at all on his own. Patient is off fluids with nephrology following. Kidney functions elevated. Replace electrolytes per protocol. Recommend repeat labs in am. Encouraged oral intake. Strongly recommend aspiration precautions. Due to multiple complex medical issues, prognosis is extremely guarded. The impression and plan of care has been dictated as a scribe by Ludy Mccarthy, nurse practitioner as directed. Dr. Paulie MD I have performed a history and examination and MDM of this patient, discussed the same with the dictator, and has been documented as a scribe. Based on total visit time, I have performed more than 50% of the visit. Any additional findings or plans will be noted. Objective - Vital Signs Vital signs: Vital Signs Temp 97.0 F L 09/14/22 20:00 Pulse 87 09/15/22 08:06 Resp 18 09/15/22 04:00 BP 118/71 09/15/22 04:00 Pulse Ox 94 L 09/15/22 07:59 FiO2 Intake & Output 09/14/22 09/15/22 09/15/22 18:59 06:59 18:59 Intake Total 400 Output Total 200 Balance 400 -200 Intake: Intake, IV Titration 400 Amount Magnesium Sulfate-D5w Pmx 200 1 gm In Dextrose/Water 1 100ml.bag @ 100 mls/hr IVPB Q1H [facility] Rx#: [id number] Sodium Chloride 0.9% 1, 200 000 ml @ 70 mls/hr IV . [id number] [facility] Rx#:[id number] Output: Urine 200 Other: Voiding Method Diaper Indwelling Catheter # Voids 75 - Labs CBC & Chem 7: 09/13/22 09:16 09/15/22 15:32 Labs: Abnormal Lab Results - Last 24 Hours (Table) 09/15/22 Range/Units 07:19 Sodium 131 L (137-145) mmol/L Potassium 3.3 L (3.5-5.1) mmol/L Carbon Dioxide 19 L (22-30) mmol/L BUN 29 H (9-20) mg/dL Creatinine 2.57 H (0.66-1.25) mg/dL Glucose 101 H (74-99) mg/dL Calcium 7.9 L (8.4-10.2) mg/dL
[2022-09-16] MEDS: SODIUM CHLORIDE 0.9% 1,000 ML IV SCH ×2 (05:41→20:31)
[2022-09-16] MEDS: LEVOTHYROXINE 50 MCG TAB PO SCH (06:27)
[2022-09-16] MEDS: carvediloL 6.25 MG TAB PO SCH ×3 (06:27→17:07)
[2022-09-16 09:15] LABS: Calcium 7.7 mg/dL (8.4-10.2)
[2022-09-16 09:18] LABS: Magnesium 1.7 mg/dL (1.6-2.3); Potassium 4.2 mmol/L (3.5-5.1)
[2022-09-16] MEDS: SENNOSIDES 8.6 MG TAB PO SCH ×2 (10:00→10:14)
[2022-09-16] MEDS: PANTOPRAZOLE 40 MG/10 ML VIAL IV SCH (10:14)
[2022-09-16] MEDS: ISOSORBIDE MONONITRATE ER 30 MG TAB.ER.24H PO SCH ×2 (10:15→20:45)
[2022-09-16] MEDS: SODIUM BICARBONATE TAB 650 MG TAB PO SCH ×2 (10:15→20:45)
[2022-09-16] MEDS: APIXABAN 2.5 MG TABLET PO SCH ×2 (10:15→20:45)
[2022-09-16] MEDS: SODIUM CHLORIDE TAB 1 GM TAB PO SCH ×2 (10:17→20:46)
[2022-09-16] MEDS: ACETAMINOPHEN TAB 325 MG TAB PO PRN (10:23)
--- NOTE | 2022-09-16 11:42 | P.PN ---
Subjective Patient is seen in follow-up for hyponatremia and acute kidney injury. Sodium level 136 today. Renal function also improving. Patient has been quite confused and restless. Oral intake fair. Has to be fed. Blood pressure controlled. Vital signs are stable. General: Restless. HEENT: Head exam is unremarkable. On nasal cannula. LUNGS: Breath sounds decreased. HEART: Rate and Rhythm are regular. ABDOMEN: Soft, no distention. EXTREMITITES: No edema. Objective - Vital Signs Vital signs: Vital Signs Temp 97.8 F 09/16/22 08:00 Pulse 90 09/16/22 08:00 Resp 17 09/16/22 08:00 BP 137/61 09/16/22 08:00 Pulse Ox 95 09/16/22 08:00 FiO2 Intake & Output 09/15/22 09/16/22 09/16/22 18:59 06:59 18:59 Intake Total 0 175 Output Total 250 250 Balance 0 -250 -75 Weight 52.254 kg Intake: Oral 0 175 Output: Urine 250 250 Other: Voiding Method Indwelling Catheter Indwelling Catheter - Labs CBC & Chem 7: 09/13/22 09:16 09/16/22 08:28 Labs: Abnormal Lab Results - Last 24 Hours (Table) 09/14/22 09/15/22 09/16/22 Range/Units 09:30 15:32 08:28 Sodium 133 L 136 L (137-145) mmol/L Chloride 109 H (98-107) mmol/L Carbon Dioxide 21 L 18 L (22-30) mmol/L BUN 30 H 30 H (9-20) mg/dL Creatinine 2.28 H 1.77 H (0.66-1.25) mg/dL Glucose 113 H (74-99) mg/dL Calcium 8.0 L 7.7 L (8.4-10.2) mg/dL Ur 24 Hour Volume 225 L (250-2400) mls U Tot Protein 24h, Calc >600 H (42.0-225.0) mg/24hr Assessment and Plan Plan: Assessment: 1. Hyponatremia from poor solute intake. Urine sodium 25 and urine osmolality 327. Initially received Samsca and subsequently D5W to slow the rapid correction. Sodium level 136 today. TSH normal. On sodium chloride tabs. 2. Proteinuria. ?GN. Serologies have been negative. 3. DTs. 4. Benign hypertension. Blood pressure stable this morning. 5. Hypokalemia from poor intake. Replaced. Better. 6. Metabolic acidosis secondary to acute kidney injury and IV fluids. On oral bicarbonate. 7. Acute kidney injury secondary to ATN secondary to hypotension. Renal function better. Creatinine 1.77 today. Plan: Maintain IV fluids. Maintain Saunders catheter. Follow-up anti-PLAR2 as well as serum light chains. 24-hour urine for protein pending. Hold Coreg for systolic blood pressure less than 120. Amlodipine and lisinopril discontinued due to low blood pressures. We will reinitiate IVAN inhibitor in the next 1-2 days if blood pressure able to tolerate and gfr improves. Increase dose of bicarb. Will consider kidney biopsy once patient more medically stable. Prognosis guarded.
[2022-09-16] MEDS ORDERED: LORazepam 1 MG TAB PO PRN (11:58)
[2022-09-16] MEDS: MULTIVITAMINS, THERA 1 EACH TAB PO SCH (14:14)
[2022-09-16] MEDS: ATORVASTATIN 80 MG TAB PO SCH (20:45)
[2022-09-16] MEDS: QUEtiapine 25 MG TAB PO SCH (20:46)
[2022-09-16] MEDS ORDERED: IPRATROPIUM-ALBUTEROL 3 ML NEB INHALATION PRN (23:11)
--- NOTE | 2022-09-17 06:20 | P.PN ---
Subjective Progress Note Date: 09/16/22 This is a 77-year-old male who was recently admitted with with abdominal pain possible gastritis along with nausea and vomiting and was being closely monitored. Patient was evaluated by GI underwent upper EGD endoscopy showing antral gastritis with no active bleeding and biopsies were obtained. Patient has been okay to resume eliquis per GI. Patient continues on CIWA protocol and nursing staff reports he has been requiring Ativan at least every hour. Patient is lethargic and sleeping minimally arousable becomes quite irritated and agitated at staff at times. Per nursing staff patient has also been refusing meals and medications. Nephrology also following patient is placed on D5 and water as his sodium was extremely low and has been replaced and improved with Samsca although increased rapidly. Electrolytes replaced per protocol and recommend banana bag. Patient with significant weakness and per tech at the bedside who is also sitting with him, patient was unable to stand at all. Will need aggressive PT/OT therapy and recommend daily therapy once more awake and alert. Patient is afebrile denies chest pain or shortness of breath. No reports of nausea or vomiting although nursing staff reports patient is not eating much. 09/13/2022 Patient is seen today in follow up and continued on CIWA. Nephrology following for hyponatremia and was on D5 water and improved although being discontinued and to get a sodium tab. Patient needs supervision with meals and aspiration precautions. High risk for aspirations. Patient is afebrile and no reports of chest pain. Patient is on 2L via NC and will obtain chest xray. Recommend repeat labs. Replace electrolytes per protocol. 09/14/2022 Patient is seen today with family at bedside. Patient continues with confusion and agitation with minimal eating. Patient is extremely weak and lethargic. Continues to require ativan. Nephrology following and creatinine is worsened today and blood pressures are low recommending holding BP meds and start IV normal saline with repeat labs ordered. Will have PT/OT therapy evaluate if patient is able to. Prognosis is guarded. Multiple electrolyte abnormalities and will replace per protocol. 09/15/2022 Patient is seen today and is lethargic but arousable. Patient continues with agitation and confusion and continued on ativan and also seroquel. May lower the dose of seroquel. Nephrology following closely with worsening kidney functions and not making much urine. Patient is barely eating. Extreme weakness with complaints of pain per family. Recommend to replace electrolytes per protocol and follow up with am labs. IV fluids discontinued for now and continued on oral bicarb and salt tabs. 09/16/2022 Patient is seen in follow up this morning and continues with a safety clothing and equipment developer at the bedside. Patient is more awake today and is eating. Significantly weak but was able to stand and walk to the bathroom with walker and assistance. This is an improvement from one day prior. Patient is maintained on ciWA although does not appear to be withdrawing. Recommend as needed oral ativan and continue with seroquel. Will resume his home inhaler along with his percocet as needed. Encouraged oral intake and increased activity as tolerated. Replace electrolytes per protocol. Nephrology following and is on gentle IV hydration. Recommend am labs. Review of systems: Unable to obtain as patient is somewhat confused Active Medications Acetaminophen (Acetaminophen Tab 325 Mg Tab) 650 mg PO Q6HR PRN PRN Reason: Fever and/ or Pain Last Admin: 09/16/22 10:23 Dose: 650 mg Albuterol/Ipratropium (Ipratropium-Albuterol 3 Ml Neb) 3 ml INHALATION RT-Q2H PRN PRN Reason: Shortness Of Breath Or Wheezing Albuterol/Ipratropium (Ipratropium-Albuterol 3 Ml Neb) 3 ml INHALATION RT-QID BECKY Apixaban (Apixaban 2.5 Mg Tablet) 2.5 mg PO BID BECKY; Protocol Last Admin: 09/16/22 20:45 Dose: 2.5 mg Atorvastatin Calcium (Atorvastatin 80 Mg Tab) 80 mg PO HS [facility] Last Admin: 09/16/22 20:45 Dose: 80 mg Carvedilol (Carvedilol 6.25 Mg Tab) 6.25 mg PO BID-W/MEALS [facility] Last Admin: 09/16/22 17:07 Dose: Not Given Formoterol Fumarate (Formoterol Fumarate 20 Mcg/2 Ml Nebu) 20 mcg INHALATION RT-BID BECKY Sodium Chloride (Saline 0.9%) 1,000 mls @ 70 mls/hr IV .[id number] BECKY Last Admin: 09/16/22 20:31 Dose: 70 mls/hr Isosorbide Mononitrate (Isosorbide Mononitrate Er 30 Mg Tab.Er.24h) 30 mg PO BID [facility] Last Admin: 09/16/22 20:45 Dose: 30 mg Levothyroxine Sodium (Levothyroxine 25 Mcg Tab) 25 mcg PO MOLINA [facility] Last Admin: 09/14/22 06:16 Dose: Not Given Levothyroxine Sodium (Levothyroxine 50 Mcg Tab) 50 mcg PO [id number] [facility] Last Admin: 09/16/22 06:27 Dose: 50 mcg Lorazepam (Lorazepam 1 Mg/0.5 Ml Vial) 1 mg IV Q1HR PRN PRN Reason: CIWA 10 to 15 Last Admin: 09/16/22 10:14 Dose: 1 mg Lorazepam (Lorazepam 1 Mg/0.5 Ml Vial) 1 mg IV Q2HR PRN PRN Reason: CIWA 8 or 9 Last Admin: 09/15/22 03:33 Dose: 1 mg Lorazepam (Lorazepam 1 Mg Tab) 1 mg PO Q8HR PRN PRN Reason: Anxiety Miscellaneous Information (Magnesium Replacement Protocol 1 Each Misc) 1 each MISCELLANE DAILY PRN; Protocol PRN Reason: Per Protocol Miscellaneous Information (Potassium Replacement Protocol 1 Each Misc) 1 each MISCELLANE DAILY PRN; Protocol PRN Reason: Per Protocol Multivitamins (Multivitamins, Thera 1 Each Tab) 1 each PO DAILY@1200 [facility] Last Admin: 09/16/22 14:14 Dose: Not Given Naloxone HCl (Naloxone 0.4 Mg/Ml 1 Ml Vial) 0.2 mg IV Q2M PRN PRN Reason: Opioid Reversal Ondansetron HCl (Ondansetron 4 Mg/2 Ml Vial) 4 mg IVP Q8HR PRN PRN Reason: Nausea And Vomiting Oxycodone/Acetaminophen (Oxycodone-Apap 10-325mg 1 Each Tab) 1 each PO Q6H PRN PRN Reason: Pain Pantoprazole Sodium (Pantoprazole 40 Mg/10 Ml Vial) 40 mg IV DAILY [facility] Last Admin: 09/16/22 10:14 Dose: 40 mg Quetiapine Fumarate (Quetiapine 25 Mg Tab) 12.5 mg PO HS [facility] Last Admin: 09/16/22 20:46 Dose: 12.5 mg Senna (Sennosides 8.6 Mg Tab) 8.6 mg PO DAILY [facility] Last Admin: 09/16/22 10:14 Dose: 8.6 mg Sodium Bicarbonate (Sodium Bicarbonate Tab 650 Mg Tab) 1,300 mg PO BID [facility] Last Admin: 09/16/22 20:45 Dose: 1,300 mg Sodium Chloride (Sodium Chloride Tab 1 Gm Tab) 1 gm PO BID [facility] Last Admin: 09/16/22 20:46 Dose: 1 gm Sumatriptan Succinate (Sumatriptan Succinate 50 Mg Tab) 50 mg PO BID PRN PRN Reason: Migraine Headache PHYSICAL EXAMINATION: GENERAL: The patient is more awake and alert today, confused and agitated at times, elderly male thin built, ill-appearing HEENT: Pupils are round and equally reacting to light. EOMI. no scleral icterus. No conjunctival pallor. Normocephalic, atraumatic. No pharyngeal erythema. No thyromegaly. Dry mucous membranes CARDIOVASCULAR: S1 and S2 muffled PULMONARY: diminished breath sounds bilaterally with no wheezing or rhonchi noted. ABDOMEN: soft. Nontender on exam. non-distended, normoactive bowel sounds. No palpable organomegaly. MUSCULOSKELETAL: No joint swelling or deformity. EXTREMITIES: No cyanosis, clubbing, or pedal edema. NEUROLOGICAL: Unable to completely assess as patient is lethargic. Diffuse weakness SKIN: No rashes. 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 Continue CIWA protocol as needed. Patient does get agitated and restless at times at night, but not showing signs of withdrawal. Recommend oral ativan as needed and will continue with seroquel. Resumed his percocet as needed for pain. Encouraged oral intake and increased activity as tolerated. Patient will need PT/OT therapy daily as patient is significantly weak and per nursing staff is very unsteady. Much more awake today and was able to eat approx 50% of meals. Continue to encourage being more active and awake during the day. Patient is on gentle fluids with nephrology following. Kidney functions trending down. Replace electrolytes per protocol. Recommend repeat labs in am. Encouraged oral intake. Strongly recommend aspiration precautions. Due to multiple complex medical issues, prognosis is extremely guarded. The impression and plan of care has been dictated as a scribe by Ludy Mccarthy, nurse practitioner as directed. Dr. Amy MD I have performed a history and examination and MDM of this patient, discussed the same with the dictator, and has been documented as a scribe. Based on total visit time, I have performed more than 50% of the visit. Any additional findings or plans will be noted. Objective - Vital Signs Vital signs: Vital Signs Temp 97.8 F 09/16/22 08:00 Pulse 90 09/16/22 08:00 Resp 17 09/16/22 08:00 BP 137/61 09/16/22 08:00 Pulse Ox 95 09/16/22 08:00 FiO2 Intake & Output 09/15/22 09/16/22 09/16/22 18:59 06:59 18:59 Intake Total 0 175 Output Total 250 250 Balance 0 -250 -75 Weight 52.254 kg Intake: Oral 0 175 Output: Urine 250 250 Other: Voiding Method Indwelling Catheter Indwelling Catheter - Labs CBC & Chem 7: 09/13/22 09:16 09/16/22 08:28 Labs: Abnormal Lab Results - Last 24 Hours (Table) 09/14/22 09/15/22 09/16/22 Range/Units 09:30 15:32 08:28 Sodium 133 L 136 L (137-145) mmol/L Chloride 109 H (98-107) mmol/L Carbon Dioxide 21 L 18 L (22-30) mmol/L BUN 30 H 30 H (9-20) mg/dL Creatinine 2.28 H 1.77 H (0.66-1.25) mg/dL Glucose 113 H (74-99) mg/dL Calcium 8.0 L 7.7 L (8.4-10.2) mg/dL Ur 24 Hour Volume 225 L (250-2400) mls U Tot Protein 24h, Calc >600 H (42.0-225.0) mg/24hr
[2022-09-17] MEDS: LEVOTHYROXINE 50 MCG TAB PO SCH (06:28)
[2022-09-17] MEDS: carvediloL 6.25 MG TAB PO SCH ×2 (06:28→17:01)
[2022-09-17] MEDS ORDERED: IPRATROPIUM 0.5 MG/2.5 ML NEBU INHALATION SCH (08:00)
[2022-09-17] MEDS ORDERED: IPRATROPIUM-ALBUTEROL 3 ML NEB INHALATION SCH (08:00)
[2022-09-17] MEDS: ISOSORBIDE MONONITRATE ER 30 MG TAB.ER.24H PO SCH ×2 (08:54→20:11)
[2022-09-17] MEDS: SODIUM BICARBONATE TAB 650 MG TAB PO SCH ×2 (08:54→20:11)
[2022-09-17] MEDS: SODIUM CHLORIDE TAB 1 GM TAB PO SCH ×2 (08:54→20:11)
[2022-09-17] MEDS: APIXABAN 2.5 MG TABLET PO SCH ×2 (08:55→20:11)
[2022-09-17] MEDS: PANTOPRAZOLE 40 MG/10 ML VIAL IV SCH (08:55)
[2022-09-17] MEDS: SENNOSIDES 8.6 MG TAB PO SCH (08:55)
[2022-09-17] MEDS: MULTIVITAMINS, THERA 1 EACH TAB PO SCH (08:55)
[2022-09-17 09:00] LABS: Free Kappa Lt Chain Qnt, Serum 3.16 mg/dL (0.33-1.94); Free Lambda Lt Chain Qnt, Seru 1.86 mg/dL (0.57-2.63)
[2022-09-17 09:06] LABS: Calcium 7.4 mg/dL (8.4-10.2); Magnesium 1.6 mg/dL (1.6-2.3)
[2022-09-17 09:08] LABS: Basophils % (A) 0 %; Eosinophils # (A) 0.1 k/uL (0-0.7); Eosinophils % (A) 1 %; HCT 29.4 % (39.0-53.0); Lymphocytes # (A) 0.6 k/uL (1.0-4.8); Lymphocytes % (A) 5 %; MCHC 33.8 g/dL (31.0-37.0); MCV 97.8 fL (80.0-100.0); Mean Platelet Volume 9.1; Monocytes # (A) 0.6 k/uL (0-1.0); Monocytes % (A) 5 %; Neutrophils # (A) 10.5 k/uL (1.3-7.7); Neutrophils % (A) 87 %; Platelet Count 267 k/uL (150-450); RBC 3.01 m/uL (4.30-5.90); RDW 13.9 % (11.5-15.5)
[2022-09-17 09:09] LABS: HGB 9.9 gm/dL (13.0-17.5)
[2022-09-17] MEDS: IPRATROPIUM-ALBUTEROL 3 ML NEB INHALATION SCH ×4 (09:24→20:44)
[2022-09-17] MEDS: FORMOTEROL FUMARATE 20 MCG/2 ML NEBU INHALATION SCH ×2 (09:24→20:44)
[2022-09-17] MEDS ORDERED: POTASSIUM CHLORIDE ER 20 MEQ TAB.ER PO STA (10:53)
--- NOTE | 2022-09-17 10:55 | P.PN ---
Subjective Patient is seen in follow-up for hyponatremia and acute kidney injury. Sodium level 138 today. Renal function also improving. Remains confused and restless. Oral intake fair. Has to be fed. Blood pressure stable. Has Saunders catheter. Nonoliguric. Vital signs are stable. General: Resting in bed. HEENT: Head exam is unremarkable. LUNGS: Breath sounds decreased. HEART: Rate and Rhythm are regular. ABDOMEN: Soft, no distention. EXTREMITITES: No edema. Objective - Vital Signs Vital signs: Vital Signs Temp 98.1 F 09/17/22 08:00 Pulse 67 09/17/22 08:00 Resp 16 09/17/22 08:00 BP 145/72 09/17/22 08:00 Pulse Ox 94 L 09/17/22 08:00 FiO2 Intake & Output 09/16/22 09/17/22 09/17/22 18:59 06:59 18:59 Intake Total 350 Output Total 250 500 Balance 100 -500 Intake: Oral 350 Output: Urine 250 500 Other: Voiding Method Indwelling Catheter Indwelling Catheter # Bowel Movements 2 - Labs CBC & Chem 7: 09/17/22 07:36 09/17/22 07:36 Labs: Abnormal Lab Results - Last 24 Hours (Table) 09/13/22 09/17/22 09/17/22 Range/Units 12:11 07:36 07:36 WBC 12.0 H (3.8-10.6) k/uL RBC 3.01 L (4.30-5.90) m/uL Hgb 9.9 L D (13.0-17.5) gm/dL Hct 29.4 L (39.0-53.0) % Neutrophils # 10.5 H (1.3-7.7) k/uL Lymphocytes # 0.6 L (1.0-4.8) k/uL Potassium 3.0 L (3.5-5.1) mmol/L Chloride 114 H (98-107) mmol/L Carbon Dioxide 17 L (22-30) mmol/L BUN 23 H (9-20) mg/dL Creatinine 1.51 H (0.66-1.25) mg/dL Calcium 7.4 L (8.4-10.2) mg/dL Free [place] LC, Quant 3.16 H (0.33-1.94) mg/dL Assessment and Plan Plan: Assessment: 1. Hyponatremia from poor solute intake. Urine sodium 25 and urine osmolality 327. Initially received Samsca and subsequently D5W to slow the rapid correction. Sodium level 138 today. TSH normal. On sodium chloride tabs. 2. Proteinuria. ?GN. Serologies have been negative. 3. DTs. 4. Benign hypertension. Stable. 5. Hypokalemia from poor intake. 6. Metabolic acidosis secondary to acute kidney injury and IV fluids. On oral bicarbonate. 7. Acute kidney injury secondary to ATN secondary to hypotension. Renal function better. Creatinine 1.51 today. 8. Hypomagnesemia from poor intake. Plan: Change IV fluids to LR at 50 mL an hour. Maintain Saunders catheter. Replace potassium and magnesium. Follow-up anti-PLAR2. 24-hour urine not accurate. Hold Coreg for systolic blood pressure less than 120. Amlodipine and lisinopril discontinued due to low blood pressures. We will reinitiate IVAN inhibitor once GFR returns to baseline. Will consider kidney biopsy once patient more medically stable. Prognosis guarded.
[2022-09-17] MEDS: SODIUM BICARB 8.4% 50 ML SYR (1 MEQ/ML) IV STA ×2 (13:18→13:20)
[2022-09-17] MEDS ORDERED: SODIUM BICARB 8.4% 50 ML SYR (1 MEQ/ML) ONE (13:21)
[2022-09-17] MEDS: MAGNESIUM SULFATE-D5W PMX 1 GM in DEXTROSE/WATER 1 100ML.BAG IVPB SCH ×2 (13:25→16:56)
[2022-09-17] MEDS: LACTATED RINGERS 1,000 ML IV SCH (13:31)
[2022-09-17] MEDS: SODIUM CHLORIDE 0.9% 1,000 ML IV SCH (13:31)
[2022-09-17] MEDS: ACETAMINOPHEN TAB 325 MG TAB PO PRN (17:01)
[2022-09-17] MEDS: QUEtiapine 25 MG TAB PO SCH (20:11)
[2022-09-17] MEDS: ATORVASTATIN 80 MG TAB PO SCH (20:11)
[2022-09-18] MEDS ORDERED: LOPERAMIDE 2 MG CAP PO PRN (06:01)
[2022-09-18] MEDS: LEVOTHYROXINE 50 MCG TAB PO SCH (06:25)
[2022-09-18] MEDS: SENNOSIDES 8.6 MG TAB PO SCH (07:48)
[2022-09-18] MEDS: ISOSORBIDE MONONITRATE ER 30 MG TAB.ER.24H PO SCH ×2 (07:48→20:02)
[2022-09-18] MEDS: SODIUM CHLORIDE TAB 1 GM TAB PO SCH ×2 (07:48→20:01)
[2022-09-18] MEDS: carvediloL 6.25 MG TAB PO SCH ×2 (07:48→17:34)
[2022-09-18] MEDS: SODIUM BICARBONATE TAB 650 MG TAB PO SCH ×2 (07:48→20:01)
[2022-09-18] MEDS: PANTOPRAZOLE 40 MG/10 ML VIAL IV SCH (07:48)
[2022-09-18] MEDS: FORMOTEROL FUMARATE 20 MCG/2 ML NEBU INHALATION SCH ×2 (08:26→21:03)
[2022-09-18] MEDS: IPRATROPIUM-ALBUTEROL 3 ML NEB INHALATION SCH ×4 (08:26→21:03)
[2022-09-18 08:44] LABS: Basophils % (A) 0 %; Eosinophils # (A) 0.2 k/uL (0-0.7); Eosinophils % (A) 2 %; HCT 27.9 % (39.0-53.0); HGB 9.5 gm/dL (13.0-17.5); Lymphocytes # (A) 0.8 k/uL (1.0-4.8); Lymphocytes % (A) 9 %; MCH 33.1 pg (25.0-35.0); MCHC 34.1 g/dL (31.0-37.0); Mean Platelet Volume 8.1; Monocytes # (A) 0.7 k/uL (0-1.0); Monocytes % (A) 8 %; Neutrophils # (A) 7.7 k/uL (1.3-7.7); Neutrophils % (A) 80 %; Platelet Count 253 k/uL (150-450); RBC 2.88 m/uL (4.30-5.90); RDW 13.6 % (11.5-15.5); WBC 9.6 k/uL (3.8-10.6)
[2022-09-18 08:57] LABS: Calcium 7.2 mg/dL (8.4-10.2); Magnesium 1.7 mg/dL (1.6-2.3)
[2022-09-18] MEDS ORDERED: MAGNESIUM SULFATE-D5W PMX 1 GM in DEXTROSE/WATER 1 100ML.BAG IVPB ONE (09:30)
--- NOTE | 2022-09-18 09:44 | P.PN ---
Subjective Patient is seen in follow-up for hyponatremia and acute kidney injury. Sodium level 131 today. Renal function better. Mentation is better today. Wants to go home. Oral intake fair. Blood pressure stable. Has Saunders catheter. Nonoliguric. Vital signs are stable. General: Resting in bed. HEENT: Head exam is unremarkable. LUNGS: Breath sounds decreased. HEART: Rate and Rhythm are regular. ABDOMEN: Soft, no distention. EXTREMITITES: No edema. Objective - Vital Signs Vital signs: Vital Signs Temp 98.1 F 09/18/22 07:45 Pulse 64 09/18/22 07:45 Resp 18 09/18/22 07:45 BP 134/76 09/18/22 07:45 Pulse Ox 95 09/18/22 07:45 FiO2 Intake & Output 09/17/22 09/18/22 09/18/22 18:59 06:59 18:59 Intake Total 0 Output Total 450 400 Balance -450 -400 0 Intake: Oral 0 Output: Urine 450 400 Other: Voiding Method Indwelling Catheter Indwelling Catheter Indwelling Catheter # Voids 2 # Bowel Movements 1 - Labs CBC & Chem 7: 09/18/22 07:53 09/18/22 07:53 Labs: Abnormal Lab Results - Last 24 Hours (Table) 09/18/22 09/18/22 Range/Units 07:53 07:53 RBC 2.88 L (4.30-5.90) m/uL Hgb 9.5 L (13.0-17.5) gm/dL Hct 27.9 L (39.0-53.0) % Lymphocytes # 0.8 L (1.0-4.8) k/uL Sodium 131 L (137-145) mmol/L Potassium 3.0 L (3.5-5.1) mmol/L Calcium 7.2 L (8.4-10.2) mg/dL Assessment and Plan Plan: Assessment: 1. Hyponatremia from poor solute intake. Urine sodium 25 and urine osmolality 327. Initially received Samsca and subsequently D5W to slow the rapid correction. Sodium level 131 today. TSH normal. On sodium chloride tabs. 2. Proteinuria. ?GN. Serologies have been negative. 3. DTs. 4. Benign hypertension. Stable. 5. Hypokalemia from poor intake. 6. Metabolic acidosis secondary to acute kidney injury and IV fluids. On oral bicarbonate. Better. 7. Acute kidney injury secondary to ATN secondary to hypotension. Renal function better. Creatinine 1.18 today. 8. Hypomagnesemia from poor intake. Better. Plan: Hep-Lock IV fluids. DC Saunders catheter. Replace potassium and magnesium. Follow-up anti-PLAR2. 24-hour urine not accurate. Amlodipine and lisinopril discontinued due to low blood pressures. Resume low-dose IVAN inhibitor. Will consider kidney biopsy once patient more medically stable. Prognosis guarded.
[2022-09-18] MEDS: POTASSIUM CHLORIDE ER 20 MEQ TAB.ER PO SCH ×3 (09:53→14:27)
--- NOTE | 2022-09-18 10:02 | P.PN ---
Subjective Progress Note Date: 09/17/22 This is a 77-year-old male who was recently admitted with with abdominal pain possible gastritis along with nausea and vomiting and was being closely monitored. Patient was evaluated by GI underwent upper EGD endoscopy showing antral gastritis with no active bleeding and biopsies were obtained. Patient has been okay to resume eliquis per GI. Patient continues on CIWA protocol and nursing staff reports he has been requiring Ativan at least every hour. Patient is lethargic and sleeping minimally arousable becomes quite irritated and agitated at staff at times. Per nursing staff patient has also been refusing meals and medications. Nephrology also following patient is placed on D5 and water as his sodium was extremely low and has been replaced and improved with Samsca although increased rapidly. Electrolytes replaced per protocol and recommend banana bag. Patient with significant weakness and per tech at the bedside who is also sitting with him, patient was unable to stand at all. Will need aggressive PT/OT therapy and recommend daily therapy once more awake and alert. Patient is afebrile denies chest pain or shortness of breath. No reports of nausea or vomiting although nursing staff reports patient is not eating much. 09/13/2022 Patient is seen today in follow up and continued on CIWA. Nephrology following for hyponatremia and was on D5 water and improved although being discontinued and to get a sodium tab. Patient needs supervision with meals and aspiration precautions. High risk for aspirations. Patient is afebrile and no reports of chest pain. Patient is on 2L via NC and will obtain chest xray. Recommend repeat labs. Replace electrolytes per protocol. 09/14/2022 Patient is seen today with family at bedside. Patient continues with confusion and agitation with minimal eating. Patient is extremely weak and lethargic. Continues to require ativan. Nephrology following and creatinine is worsened today and blood pressures are low recommending holding BP meds and start IV normal saline with repeat labs ordered. Will have PT/OT therapy evaluate if patient is able to. Prognosis is guarded. Multiple electrolyte abnormalities and will replace per protocol. 09/15/2022 Patient is seen today and is lethargic but arousable. Patient continues with agitation and confusion and continued on ativan and also seroquel. May lower the dose of seroquel. Nephrology following closely with worsening kidney functions and not making much urine. Patient is barely eating. Extreme weakness with complaints of pain per family. Recommend to replace electrolytes per protocol and follow up with am labs. IV fluids discontinued for now and continued on oral bicarb and salt tabs. 09/16/2022 Patient is seen in follow up this morning and continues with a safety glass installer at the bedside. Patient is more awake today and is eating. Significantly weak but was able to stand and walk to the bathroom with walker and assistance. This is an improvement from one day prior. Patient is maintained on ciWA although does not appear to be withdrawing. Recommend as needed oral ativan and continue with seroquel. Will resume his home inhaler along with his percocet as needed. Encouraged oral intake and increased activity as tolerated. Replace electrolytes per protocol. Nephrology following and is on gentle IV hydration. Recommend am labs. 09/17/2022 Patient is seen this morning and per nursing staff patient is not eating breakfast continued with confusion. Patient is reporting some loose stools and will add C. diff and if negative will add Imodium. Recommend follow-up labs w [facility] [place] [facility] following closely. Recommend PT/OT therapy daily as well as patient continues with significant weakness. Encouraged oral intake and limiting the use of Ativan as patient is not actively withdrawing. May use Seroquel at night and have lowered the dose. Encouraged daytime wakefulness to promote sleep at night. Patient is continued on sodium bicarb tabs along with sodium chloride tabs nephrology following closely. Recommend a replaced left lites per protocol. Afebrile and CBC pending. Review of systems: Unable to obtain as patient is somewhat confused PHYSICAL EXAMINATION: GENERAL: The patient is more awake and alert today, confused and agitated at times, elderly male thin built, ill-appearing HEENT: Pupils are round and equally reacting to light. EOMI. no scleral icterus. No conjunctival pallor. Normocephalic, atraumatic. No pharyngeal erythema. No thyromegaly. Dry mucous membranes CARDIOVASCULAR: S1 and S2 muffled PULMONARY: diminished breath sounds bilaterally with no wheezing or rhonchi noted. ABDOMEN: soft. Nontender on exam. non-distended, normoactive bowel sounds. No palpable organomegaly. MUSCULOSKELETAL: No joint swelling or deformity. EXTREMITIES: No cyanosis, clubbing, or pedal edema. NEUROLOGICAL: Unable to completely assess as patient is lethargic. Diffuse weakness SKIN: No rashes. 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 Continue CIWA protocol as needed. Patient does get agitated and restless at times at night, but not showing signs of withdrawal. Recommend oral ativan as needed and will continue with seroquel. Resumed his percocet as needed for pain. Encouraged oral intake and increased activity as tolerated. Per nursing staff and sitter a t the bedside patient is not eating today. Encouraged meals with the patient and daytime wakefulness to promote sleep at night. Patient needs PT/OT therapy daily as patient is significantly weak and per nursing staff is very unsteady. Continue to encourage being more active and awake during the day. Patient is on gentle fluids with nephrology following. Kidney functions trending down. Replace electrolytes per protocol. Recommend repeat labs in am. Encouraged oral intake. Strongly recommend aspiration precautions. Due to multiple complex medical issues, prognosis is extremely guarded. The impression and plan of care has been dictated as a scribe by Ludy Mccarthy, nurse practitioner as directed. Dr. Amy MD I have performed a history and examination and MDM of this patient, discussed the same with the dictator, and has been documented as a scribe. Based on total visit time, I have performed more than 50% of the visit. Any additional findings or plans will be noted. Objective - Vital Signs Vital signs: Vital Signs Temp 98.1 F 09/17/22 08:00 Pulse 80 09/17/22 12:00 Resp 16 09/17/22 12:00 BP 134/68 09/17/22 12:00 Pulse Ox 96 09/17/22 12:00 FiO2 Intake & Output 09/16/22 09/17/22 09/17/22 18:59 06:59 18:59 Intake Total 350 Output Total 250 500 Balance 100 -500 Intake: Oral 350 Output: Urine 250 500 Other: Voiding Method Indwelling Catheter Indwelling Catheter Indwelling Catheter # Voids 2 # Bowel Movements 2 1 - Labs CBC & Chem 7: 09/18/22 07:53 09/18/22 07:53 Labs: Abnormal Lab Results - Last 24 Hours (Table) 09/13/22 09/17/22 09/17/22 Range/Units 12:11 07:36 07:36 WBC 12.0 H (3.8-10.6) k/uL RBC 3.01 L (4.30-5.90) m/uL Hgb 9.9 L D (13.0-17.5) gm/dL Hct 29.4 L (39.0-53.0) % Neutrophils # 10.5 H (1.3-7.7) k/uL Lymphocytes # 0.6 L (1.0-4.8) k/uL Potassium 3.0 L (3.5-5.1) mmol/L Chloride 114 H (98-107) mmol/L Carbon Dioxide 17 L (22-30) mmol/L BUN 23 H (9-20) mg/dL Creatinine 1.51 H (0.66-1.25) mg/dL Calcium 7.4 L (8.4-10.2) mg/dL Free [place] LC, Quant 3.16 H (0.33-1.94) mg/dL
[2022-09-18] MEDS: MULTIVITAMINS, THERA 1 EACH TAB PO SCH (10:58)
[2022-09-18] MEDS: POTASSIUM CHLORIDE 20 MEQ in WATER FOR INJECTION 1 100ML.BAG IVPB SCH ×3 (10:58→14:59)
[2022-09-18] MEDS: oxyCODONE-APAP 10-325MG 1 EACH TAB PO PRN (16:40)
--- NOTE | 2022-09-18 16:57 | US ---
EXAMINATION TYPE: US kidneys/renal and bladder DATE OF EXAM: 09/18/2022 COMPARISON: NONE CLINICAL HISTORY: 77-year-old male hematuria TECHNIQUE: Multiple sonographic images of the kidneys and bladder are obtained. FINDINGS: EXAM MEASUREMENTS: Right Kidney: 11.5 x 5.2 x 5.0 cm Left Kidney: 8.4 x 4.0 x 3.7 cm Right Kidney: cystic areas upper pole, largest = 3.0 x 2.1 x 3.1cm Left Kidney: cystic area upper pole = 1.3 x 1.3 x 1.2cm Internal low-level echoes thought to be artifactual or could represent debris. No hydronephrosis on either side. Bladder: not fully distended. This limits the assessment. There is a mural-based echogenic area poste riorly measuring 8 mm. No posterior shadowing is seen. Bilateral Jets seen: no IMPRESSION: 1. Possible nonshadowing 8 mm bladder calculus. Consider either direct visualization versus short int erval follow-up ultrasound to reassess and exclude a urothelial lesion. In the meanwhile, correlate w ith urine cytology and urinalysis. 2. Bilateral renal cysts suggested measuring up to 3.0 cm on the right and 1.37 m on the left. Structural Steel Erection Supervisor al low level echoes are felt to be artifactual or could represent debris. This can also be reassessed at a 3-6 month follow-up ultrasound.
[2022-09-18] MEDS: LACTATED RINGERS 1,000 ML IV SCH (18:56)
[2022-09-18] MEDS: QUEtiapine 25 MG TAB PO SCH (20:01)
[2022-09-18] MEDS: ATORVASTATIN 80 MG TAB PO SCH (20:01)
[2022-09-19] MEDS: oxyCODONE-APAP 10-325MG 1 EACH TAB PO PRN ×2 (05:26→15:16)
[2022-09-19] MEDS: LEVOTHYROXINE 50 MCG TAB PO SCH (05:26)
[2022-09-19] MEDS: carvediloL 6.25 MG TAB PO SCH ×2 (05:26→17:18)
--- NOTE | 2022-09-19 07:21 | P.PN ---
Progress Note - Text Review of patient chart. Mentation much improved. In fact, patient wants to go home. PT reports supervision for bed mobility and minimal assist for transfers and gait 360 ft total with IVP. OT reports moderate assist for lower dress, bathing and toileting. Would accept for IPR at this time pending your clinical correlation.
[2022-09-19] MEDS: FORMOTEROL FUMARATE 20 MCG/2 ML NEBU INHALATION SCH ×2 (08:04→19:58)
[2022-09-19] MEDS: IPRATROPIUM-ALBUTEROL 3 ML NEB INHALATION SCH ×4 (08:05→19:58)
--- NOTE | 2022-09-19 08:58 | P.PN ---
Progress Note - Text Would use Diagnoses codes including Abdominal Pain, Alcohol Abuse and Toxic Encephalopathy.
[2022-09-19] MEDS: PANTOPRAZOLE 40 MG/10 ML VIAL IV SCH (08:59)
[2022-09-19] MEDS: SODIUM CHLORIDE TAB 1 GM TAB PO SCH ×2 (09:00→20:05)
[2022-09-19] MEDS: SODIUM BICARBONATE TAB 650 MG TAB PO SCH ×2 (09:00→20:05)
[2022-09-19] MEDS: SENNOSIDES 8.6 MG TAB PO SCH (09:00)
[2022-09-19] MEDS: ISOSORBIDE MONONITRATE ER 30 MG TAB.ER.24H PO SCH ×2 (09:00→20:05)
--- NOTE | 2022-09-19 09:38 | P.PN ---
Subjective Progress Note Date: 09/18/22 This is a 77-year-old male who was recently admitted with with abdominal pain possible gastritis along with nausea and vomiting and was being closely monitored. Patient was evaluated by GI underwent upper EGD endoscopy showing antral gastritis with no active bleeding and biopsies were obtained. Patient has been okay to resume eliquis per GI. Patient continues on CIWA protocol and nursing staff reports he has been requiring Ativan at least every hour. Patient is lethargic and sleeping minimally arousable becomes quite irritated and agitated at staff at times. Per nursing staff patient has also been refusing meals and medications. Nephrology also following patient is placed on D5 and water as his sodium was extremely low and has been replaced and improved with Samsca although increased rapidly. Electrolytes replaced per protocol and recommend banana bag. Patient with significant weakness and per tech at the bedside who is also sitting with him, patient was unable to stand at all. Will need aggressive PT/OT therapy and recommend daily therapy once more awake and alert. Patient is afebrile denies chest pain or shortness of breath. No reports of nausea or vomiting although nursing staff reports patient is not eating much. 09/13/2022 Patient is seen today in follow up and continued on CIWA. Nephrology following for hyponatremia and was on D5 water and improved although being discontinued and to get a sodium tab. Patient needs supervision with meals and aspiration precautions. High risk for aspirations. Patient is afebrile and no reports of chest pain. Patient is on 2L via NC and will obtain chest xray. Recommend repeat labs. Replace electrolytes per protocol. 09/14/2022 Patient is seen today with family at bedside. Patient continues with confusion and agitation with minimal eating. Patient is extremely weak and lethargic. Continues to require ativan. Nephrology following and creatinine is worsened today and blood pressures are low recommending holding BP meds and start IV normal saline with repeat labs ordered. Will have PT/OT therapy evaluate if patient is able to. Prognosis is guarded. Multiple electrolyte abnormalities and will replace per protocol. 09/15/2022 Patient is seen today and is lethargic but arousable. Patient continues with agitation and confusion and continued on ativan and also seroquel. May lower the dose of seroquel. Nephrology following closely with worsening kidney functions and not making much urine. Patient is barely eating. Extreme weakness with complaints of pain per family. Recommend to replace electrolytes per protocol and follow up with am labs. IV fluids discontinued for now and continued on oral bicarb and salt tabs. 09/16/2022 Patient is seen in follow up this morning and continues with a mine safety engineer at the bedside. Patient is more awake today and is eating. Significantly weak but was able to stand and walk to the bathroom with walker and assistance. This is an improvement from one day prior. Patient is maintained on ciWA although does not appear to be withdrawing. Recommend as needed oral ativan and continue with seroquel. Will resume his home inhaler along with his percocet as needed. Encouraged oral intake and increased activity as tolerated. Replace electrolytes per protocol. Nephrology following and is on gentle IV hydration. Recommend am labs. 09/17/2022 Patient is seen this morning and per nursing staff patient is not eating breakfast continued with confusion. Patient is reporting some loose stools and will add C. diff and if negative will add Imodium. Recommend follow-up labs w ith nephrology following closely. Recommend PT/OT therapy daily as well as patient continues with significant weakness. Encouraged oral intake and limiting the use of Ativan as patient is not actively withdrawing. May use Seroquel at night and have lowered the dose. Encouraged daytime wakefulness to promote sleep at night. Patient is continued on sodium bicarb tabs along with sodium chloride tabs nephrology following closely. Recommend a replaced left lites per protocol. Afebrile and CBC pending. 09/18/2022 Patient is seen today in follow up with multiple family members at bedside and is doing will simply well. Patient is eating and tolerating with no reports of abdominal pain noted. Patient reports to having some loose stool and C. diff was negative and have added Imodium. Patient denies any blood in the stool. Patient being followed by nephrology with improving labs recommend continue following electrolytes and replace per protocol. Patient was also continued on DuoNeb treatments although refusing stating his has not needed at this time and using inhalers as needed. Patient denies any shortness of breath and no wheezing on exam. 97% on room air. Patient is working with physical therapy and doing relatively well walking the halls multiple times. Patient to be ree valuated by Dr. Bartholomew for possible [facility] inpatient rehab. Family is agreeable with this. Review of systems: Constitutional: No reports of fatigue, fever, or chills Cardiovascular: No reports of chest pain or palpitations Respiratory: No reports of shortness of breath or cough GI: No reports of nausea, vomiting, or diarrhea : No reports of dysuria or retention Neurovascular: No reports of weakness or numbness All medications have been reviewed PHYSICAL EXAMINATION: GENERAL: The patient is more awake and alert today, elderly male thin built, ill-appearing HEENT: Pupils are round and equally reacting to light. EOMI. no scleral icterus. No conjunctival pallor. Normocephalic, atraumatic. No pharyngeal erythema. No thyromegaly. Dry mucous membranes CARDIOVASCULAR: S1 and S2 muffled PULMONARY: diminished breath sounds bilaterally with no wheezing or rhonchi noted. ABDOMEN: soft. Nontender on exam. non-distended, normoactive bowel sounds. No palpable organomegaly. MUSCULOSKELETAL: No joint swelling or deformity. EXTREMITIES: No cyanosis, clubbing, or pedal edema. NEUROLOGICAL: No focal deficits noted. SKIN: No rashes. 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 Patient does get agitated and restless at times at night, but not showing signs of withdrawal. Recommend oral ativan as needed and will continue with seroquel. Resumed his percocet as needed for pain. Encouraged oral intake and increased activity as tolerated. Per nursing staff significant improvement in mentation with no sitter at the bedside and patient is up and walking independently with standby assist although continues with some weakness but significantly improving. Continue to encourage being more active and awake during the day. Kidney functions trending down. Replace electrolytes per protocol. Recommend repeat labs in am. Encouraged oral intake. Patient for reevaluation by [facility] re[facility] and will await Dr. Bartholomew recommendations. Due to multiple complex medical issues, prognosis is extremely guarded. The impression and plan of care has been dictated as a scribe by Ludy Mccarthy, nurse practitioner as directed. Dr. Amy MD I have performed a history and examination and MDM of this patient, discussed the same with the dictator, and has been documented as a scribe. Based on total visit time, I have performed more than 50% of the visit. Any additional findings or plans will be noted. Objective - Vital Signs Vital signs: Vital Signs Temp 98.1 F 09/18/22 07:45 Pulse 54 L 09/18/22 11:00 Resp 18 09/18/22 11:00 BP 133/75 09/18/22 11:00 Pulse Ox 95 09/18/22 11:00 FiO2 Intake & Output 09/17/22 09/18/22 09/18/22 18:59 06:59 18:59 Intake Total 0 Output Total 450 400 350 Balance -450 -400 -350 Weight 52.254 kg Intake: Oral 0 Output: Urine 450 400 350 2-way Urethral 350 Other: Voiding Method Indwelling Catheter Indwelling Catheter Indwelling Catheter # Voids 2 # Bowel Movements 1 1 - Labs CBC & Chem 7: 09/18/22 07:53 09/18/22 07:53 Labs: Abnormal Lab Results - Last 24 Hours (Table) 09/18/22 09/18/22 Range/Units 07:53 07:53 RBC 2.88 L (4.30-5.90) m/uL Hgb 9.5 L (13.0-17.5) gm/dL Hct 27.9 L (39.0-53.0) % Lymphocytes # 0.8 L (1.0-4.8) k/uL Sodium 131 L (137-145) mmol/L Potassium 3.0 L (3.5-5.1) mmol/L Calcium 7.2 L (8.4-10.2) mg/dL
--- NOTE | 2022-09-19 09:57 | P.PN ---
Subjective Patient is seen in follow-up for hyponatremia and acute kidney injury. Sodium level 131 yesterday. Renal function improving. Mentation is better today. Wants to go home. Oral intake fair. Blood pressure stable. Saunders catheter removed yesterday. States he has been voiding. Vital signs are stable. General: Resting in bed. HEENT: Head exam is unremarkable. LUNGS: Breath sounds decreased. HEART: Rate and Rhythm are regular. ABDOMEN: Soft, no distention. EXTREMITITES: No edema. Objective - Vital Signs Vital signs: Vital Signs Temp 98.1 F 09/18/22 07:45 Pulse 71 09/19/22 04:00 Resp 19 09/19/22 04:00 BP 119/54 09/19/22 04:00 Pulse Ox 97 09/19/22 04:00 FiO2 Intake & Output 09/18/22 09/19/22 09/19/22 18:59 06:59 18:59 Intake Total 0 118 Output Total 500 Balance -500 118 Weight 52.254 kg Intake: Oral 0 118 Output: Urine 500 2-way Urethral 350 Other: Voiding Method Indwelling Catheter Toilet # Voids 1 1 # Bowel Movements 1 - Labs CBC & Chem 7: 09/18/22 07:53 09/18/22 07:53 Assessment and Plan Plan: Assessment: 1. Hyponatremia from poor solute intake. Urine sodium 25 and urine osmolality 327. Initially received Samsca and subsequently D5W to slow the rapid correct ion. Sodium level 131 yesterday. TSH normal. On sodium chloride tabs. 2. Proteinuria. ?GN. Serologies have been negative. 3. DTs. 4. Benign hypertension. Stable. 5. Hypokalemia from poor intake. Replaced. 6. Metabolic acidosis secondary to acute kidney injury and IV fluids. On oral bicarbonate. Better. 7. Acute kidney injury secondary to ATN secondary to hypotension. Renal function better. Creatinine 1.18 yesterday. 8. Hypomagnesemia from poor intake. Better. 9. Hematuria. Possibly traumatic from Saunders catheter. Ultrasound showed possible bladder calculus. Urology consulted. Plan: Currently off IV fluids. Saunders catheter removed 09/18/2022. Follow-up anti-PLAR2. 24-hour urine not accurate. Amlodipine and lisinopril discontinued due to low blood pressures. Low-dose lisinopril resumed 09/18/2022. Kidney biopsy discussed with the patient for definitive diagnosis. Patient is advised to follow up outpatient in 1 week post discharge. 24-hour urine collection will be repeated for accurate measurement. Strongly stressed compliance with meds and outpatient follow-up. Repeat UA. Prognosis guarded.
[2022-09-19 12:18] LABS: Calcium 7.7 mg/dL (8.4-10.2); Magnesium 1.5 mg/dL (1.6-2.3); Potassium 4.2 mmol/L (3.5-5.1)
[2022-09-19] MEDS ORDERED: MAGNESIUM SULFATE-D5W PMX 1 GM in DEXTROSE/WATER 1 100ML.BAG IVPB SCH (12:45)
[2022-09-19] MEDS: MAGNESIUM SULFATE-D5W PMX 1 GM in DEXTROSE/WATER 1 100ML.BAG IVPB SCH ×2 (13:07→14:27)
[2022-09-19] MEDS: MULTIVITAMINS, THERA 1 EACH TAB PO SCH (14:27)
--- NOTE | 2022-09-19 15:15 | P.PN ---
Subjective Progress Note Date: 09/19/22 This is a 77-year-old male who was recently admitted with with abdominal pain possible gastritis along with nausea and vomiting and was being closely monitored. Patient was evaluated by GI underwent upper EGD endoscopy showing antral gastritis with no active bleeding and biopsies were obtained. Patient has been okay to resume eliquis per GI. Patient continues on CIWA protocol and nursing staff reports he has been requiring Ativan at least every hour. Patient is lethargic and sleeping minimally arousable becomes quite irritated and agitated at staff at times. Per nursing staff patient has also been refusing meals and medications. Nephrology also following patient is placed on D5 and water as his sodium was extremely low and has been replaced and improved with Samsca although increased rapidly. Electrolytes replaced per protocol and recommend banana bag. Patient with significant weakness and per tech at the bedside who is also sitting with him, patient was unable to stand at all. Will need aggressive PT/OT therapy and recommend daily therapy once more awake and alert. Patient is afebrile denies chest pain or shortness of breath. No reports of nausea or vomiting although nursing staff reports patient is not eating much. 09/13/2022 Patient is seen today in follow up and continued on CIWA. Nephrology following for hyponatremia and was on D5 water and improved although being discontinued and to get a sodium tab. Patient needs supervision with meals and aspiration precautions. High risk for aspirations. Patient is afebrile and no reports of chest pain. Patient is on 2L via NC and will obtain chest xray. Recommend repeat labs. Replace electrolytes per protocol. 09/14/2022 Patient is seen today with family at bedside. Patient continues with confusion and agitation with minimal eating. Patient is extremely weak and lethargic. Continues to require ativan. Nephrology following and creatinine is worsened today and blood pressures are low recommending holding BP meds and start IV normal saline with repeat labs ordered. Will have PT/OT therapy evaluate if patient is able to. Prognosis is guarded. Multiple electrolyte abnormalities and will replace per protocol. 09/15/2022 Patient is seen today and is lethargic but arousable. Patient continues with agitation and confusion and continued on ativan and also seroquel. May lower the dose of seroquel. Nephrology following closely with worsening kidney functions and not making much urine. Patient is barely eating. Extreme weakness with complaints of pain per family. Recommend to replace electrolytes per protocol and follow up with am labs. IV fluids discontinued for now and continued on oral bicarb and salt tabs. 09/16/2022 Patient is seen in follow up this morning and continues with a safety deposit clerk at the bedside. Patient is more awake today and is eating. Significantly weak but was able to stand and walk to the bathroom with walker and assistance. This is an improvement from one day prior. Patient is maintained on ciWA although does not appear to be withdrawing. Recommend as needed oral ativan and continue with seroquel. Will resume his home inhaler along with his percocet as needed. Encouraged oral intake and increased activity as tolerated. Replace electrolytes per protocol. Nephrology following and is on gentle IV hydration. Recommend am labs. 09/17/2022 Patient is seen this morning and per nursing staff patient is not eating breakfast continued with confusion. Patient is reporting some loose stools and will add C. diff and if negative will add Imodium. Recommend follow-up labs w ith nephrology following closely. Recommend PT/OT therapy daily as well as patient continues with significant weakness. Encouraged oral intake and limiting the use of Ativan as patient is not actively withdrawing. May use Seroquel at night and have lowered the dose. Encouraged daytime wakefulness to promote sleep at night. Patient is continued on sodium bicarb tabs along with sodium chloride tabs nephrology following closely. Recommend a replaced left lites per protocol. Afebrile and CBC pending. 09/18/2022 Patient is seen today in follow up with multiple family members at bedside and is doing will simply well. Patient is eating and tolerating with no reports of abdominal pain noted. Patient reports to having some loose stool and C. diff was negative and have added Imodium. Patient denies any blood in the stool. Patient being followed by nephrology with improving labs recommend continue following electrolytes and replace per protocol. Patient was also continued on DuoNeb treatments although refusing stating his has not needed at this time and using inhalers as needed. Patient denies any shortness of breath and no wheezing on exam. 97% on room air. Patient is working with physical therapy and doing relatively well walking the halls multiple times. Patient to be ree valuated by Dr. Bartholomew for possible [facility] inpatient rehab. Family is agreeable with this. 09/19/2022 Patient is seen and evaluated in follow-up extremely angry and agitated that he just wants to go home. Patient with weakness and was reevaluated by Dr. Bartholomew has been approved to go to [facility]. Family strongly encouraging rehab as patient with weakness and was most recently just extremely confused and weak although has improved over the last day or so. Patient being followed by nephgoran murphy and jean paul for discharge on current medications recommending close outpatient follow-up and will follow over at [facility] with him as well if a consult was placed. Patient will need outpatient biopsy of the kidney at some point. Patient continues with electrolyte abnormalities of mildly low sodium of 129, llow magnesium and are being replaced. Potassium today was improved after replacement of 4.2 and have added daily supplements. Will follow-up with repeat labs. Patient is currently maintained on sodium bicarb along with sodium chloride tablets and being monitored closely by nephrology. Patient with some hematuria most likely from the Saunders catheter and a ultrasound was done showing no hydronephrosis on either side with some possible non-shadowing 8 mm bladder calculus to consider either a direct visualization versus short interval follow- up ultrasound to reassess and exclude a urothelial lesion and to correlate with a urine cytology and urinalysis. Urinalysis is currently pending. There are bilateral renal cysts suggested measuring up to 3.0 cm on the right and 1.37 on the left with echoes that could represent debris recommending outpatient ultrasound follow-up in 3-6 months. Patient denies having any burning or pain with urination and has been voiding and had the Saunders catheter removed yesterday. Patient is working with physical therapy daily. Encouraged oral intake as patient is not eating much and was still continued on pureed diet when he was more lethargic and confused. Patient is tolerating increase in diet although recommend speech therapy to evaluate to advance his diet. Patient is afebrile denies chest pain or shortness of breath. Recommend continue with aspiration precautions. Review of systems: Constitutional: No reports of fatigue, fever, or chills Cardiovascular: No reports of chest pain or palpitations Respiratory: No reports of shortness of breath or cough GI: No reports of nausea, vomiting, reports diarrhea although improving with Imodium : No reports of dysuria or retention Neurovascular: No reports of weakness or numbness All medications have been reviewed PHYSICAL EXAMINATION: GENERAL: The patient is more awake and alert today x2-3, elderly male thin built, ill-appearing HEENT: Pupils are round and equally reacting to light. EOMI. no scleral icterus. No conjunctival pallor. Normocephalic, atraumatic. No pharyngeal erythema. No thyromegaly. CARDIOVASCULAR: S1 and S2 muffled PULMONARY: diminished breath sounds bilaterally with no wheezing or rhonchi noted. ABDOMEN: soft. Nontender on exam. non-distended, normoactive bowel sounds. No palpable organomegaly. MUSCULOSKELETAL: No joint swelling or deformity. EXTREMITIES: No cyanosis, clubbing, or pedal edema. NEUROLOGICAL: No focal deficits noted. SKIN: No rashes. 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 Urology consulted as there are some bladder calculus noted on ultrasound Hypertension Hyperlipidemia Continued alcohol abuse Acute alcohol withdrawal with delirium tremens, resolved GI prophylaxis DVT prophylaxis Full code Plan: Recommend to continue with current medications and management. Patient is becoming extremely agitated as he wants to go home although family is requesting and demanding him go to rehab. Patient was reevaluated by Dr. Bartholomew and approved for [facility] inpatient rehab currently awaiting insurance auth orization. Patient with significant weakness and just 2 days ago was obtunded and confused and also continues with some confusion at night. Will continue with Seroquel at night. Patient is also upset about his diet although reports he is not very hungry and does not want any of the food here and was maintained on pureed diet due to his high risk for aspiration with being lethargic and confused. Patient's mentation is much improved and is alert and oriented 2-3. Patient with some hematuria most likely secondary to current indwelling Saunders catheter that was removed. Patient is voiding and repeat urinalysis is ordered. Ultrasound done as previously mentioned and urology was consulted for further evaluation of this bladder calculus. Patient denies any burning or pain with urination and is voiding with no difficulties he reports. Encouraged oral intake and increased activity as tolerated. Kidney functions trending down. Replace electrolytes per protocol. Magnesium was slightly low and will replace and follow up with repeat labs in am. Potassium improved today at 4.2. Due to multiple complex medical issues, prognosis is guarded. The impression and plan of care has been dictated as a scribe by Ludy Mccarthy, nurse practitioner as directed. Dr. Nash MD I have performed a history and examination and MDM of this patient, discussed the same with the dictator, and has been documented as a scribe. Based on total visit time, I have performed more than 50% of the visit. Any additional findings or plans will be noted. Objective - Vital Signs Vital signs: Vital Signs Temp 98.1 F 09/18/22 07:45 Pulse 71 09/19/22 04:00 Resp 19 09/19/22 04:00 BP 119/54 09/19/22 04:00 Pulse Ox 97 09/19/22 04:00 FiO2 Intake & Output 09/18/22 09/19/22 09/19/22 18:59 06:59 18:59 Intake Total 0 118 Output Total 500 Balance -500 118 Weight 52.254 kg Intake: Oral 0 118 Output: Urine 500 2-way Urethral 350 Other: Voiding Method Indwelling Catheter Toilet # Voids 1 1 # Bowel Movements 1 - Labs CBC & Chem 7: 09/18/22 07:53 09/19/22 11:19
--- NOTE | 2022-09-19 15:32 | P.DS ---
Providers Date of admission: 09/08/22 13:09 Expected date of discharge: 09/19/22 Attending physician: Kahlil Rodriguez MD Consults: 09/08/22 13:08 Consult Physician Routine Consulting Provider: Dena Garcia Consult Reason/Comments: Intractable vomiting Do you want consulting provider notified?: Yes Consult Physician Routine Consulting Provider: Vickie Gil Consult Reason/Comments: Hyponatremia Do you want consulting provider notified?: Yes 09/10/22 12:48 Consult Physician Routine Consulting Provider: Nawaf Bartholomew Consult Reason/Comments: eval for ipr Do you want consulting provider notified?: Yes 09/18/22 14:00 Consult Physician Routine Consulting Provider: Loi August Consult Reason/Comments: hematuria Do you want consulting provider notified?: Yes, Notify in am Primary care physician: Mario June Hospital Course: Final diagnosis Abdominal pain and vomiting, possible acute gastritis, improved Severe hypokalemia, improved Hyponatremia from poor solute intake acute kidney injury likely due to lisinopril and poor oral intake with acute tubular necrosis, improving 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 Urology consulted as there are some bladder calculus noted on ultrasound Hypertension Hyperlipidemia Continued alcohol abuse Acute alcohol withdrawal with delirium tremens, resolved GI prophylaxis DVT prophylaxis Full code Discharge disposition Patient is being discharged in a stable condition with guarded prognosis to [facility] inpatient rehab. Patient will follow-up with Dr. June in the outpatient setting upon discharge. Patient is to continue with close outpatient follow-up with nephrology as well as urology. Total time taken is greater than 35 minutes. Hospital course This is a 77-year-old male who was recently admitted with abdominal pain possible gastritis along with nausea vomiting and multiple electrolyte abnormalities and being closely monitored. Patient was evaluated by GI and underwent upper EGD endoscopy showing antral gastritis with no active bleeding and biopsies were obtained. Patient was also placed on CIWA protocol initially and requiring Ativan. Patient not actively withdrawing at this time. Patient was extremely lethargic minimally arousable becoming agitated and extremely weak and had been refusing to eat. Patient was evaluated by nephrology and followed closely for his low sodium that jumped extremely aggressively fast up with a few doses of Samsca and had been placed on D5 water for correction. Patient continued to have multiple electrolytes abnormalities including low potassium and low magnesium that were replaced per protocol. Recommend daily supplementation of these electrolytes. Patient was also placed on a dysphagia diet due to his mentation and confusion although is much more awake and alert and will advance to dysphagia chopped diet and recommend continue with aspiration precautions. Patient is currently maintained on sodium chloride tabs along with sodium bicarb tabs and will be followed with nephrology in the outpatient setting. Repeat urinalysis was ordered. Patient is noted to have hematuria after Saunders catheter discontinuation an ultrasound was noted to have some renal calculi and urology was consulted. Patient will eventually need a kidney biopsy in the outpatient setting. Patient with significant weakness up until 2 days ago and mentation significantly improved along with his weakness and is up working with physical therapy. Patient adamantly wants to go home although continues with some confusion and is agreeable to 2 days at rehab. Currently awaiting insurance authorization. Currently no reports of chest pain, shortness of breath, or palpitations. Patient is afebrile. No reports of nausea or vomiting and patient is tolerating diet. Poor oral intake continues. Patient will be going to [facility] inpatient rehab once authorization is obtained. Physical exam: Gen: This is a 77-year-old male, thin built, awake, alert and oriented 2-3. HEENT: Head is atraumatic, normocephalic. Pupils equal, round. Sclerae is anicteric. NECK: Supple. No JVD. No lymphadenopathy. No thyromegaly. LUNGS: Clear to auscultation. No wheezes or rhonchi. No intercostal retractions. HEART: Regular rate and rhythm. No murmur. ABDOMEN: Soft. Bowel sounds are present. No masses. No tenderness. EXTREMITIES: No pedal edema. No calf tenderness. NEUROLOGICAL: Patient is awake, alert and oriented x3. Cranial nerves 2 through 12 are grossly intact. Diffusely weak Please refer to medication reconciliation sheet for a list of medications. The impression and plan of care has been dictated by Ludy Mccarthy, Nurse Practitioner as directed. Dr. Nash MD I have performed a history and examination and MDM of this patient, discussed the same with the dictator, and agree with the dictator's assessment and plan as written ,documented as a scribe. Based on total visit time, I have performed more than 50% of the visit. Patient Condition at Discharge: Fair Plan - Discharge Summary Discharge Rx Participant: No New Discharge Prescriptions: New carvediloL [Coreg] 6.25 mg PO BID-W/MEALS tab Ipratropium-Albuterol Nebulize [Duoneb 0.5 mg-3 mg/3 ml Soln] 3 ml INHALATION RT-QID each Loperamide [Imodium] 2 mg PO QID PRN cap PRN Reason: Diarrhea Multivitamins, Thera [Multivitamin (formulary)] 1 each PO DAILY@1200 tab Sodium Bicarbonate Tab 1,300 mg PO BID tab Sodium Chloride Tab 1 gm PO BID tab lisinopriL [Zestril] 2.5 mg PO DAILY tab Magnesium Oxide 400 mg PO BID 30 Days #60 tablet Ipratropium-Albuterol Nebulize [Duoneb 0.5 mg-3 mg/3 ml Soln] 3 ml INHALATION RT-Q2H PRN each PRN Reason: Shortness Of Breath Or Wheezing Heparin Sodium,Porcine [Heparin Sodium] 5,000 unit SQ Q12HR 30 Days #60 each QUEtiapine [SEROquel] 12.5 mg PO HS tab Acetaminophen Tab [Tylenol] 650 mg PO Q6HR PRN tab PRN Reason: Fever And/ Or Pain Potassium Chloride ER [K-Dur 20] 20 meq PO DAILY #30 tab Continue oxyCODONE HCL/ACETAMINOPHEN [Percocet 10-325 mg] 1 tab PO Q6H PRN PRN Reason: Pain Dicyclomine [Bentyl] 10 mg PO DAILY Levothyroxine Sodium [Synthroid] 50 mcg PO MOTUWETHFRSA Naloxone HCl [Narcan] 4 mg NASAL ONCE PRN PRN Reason: OVERDOSE SUMAtriptan succinate [Imitrex] 50 mg PO BID PRN PRN Reason: Migraine Headache Esomeprazole Magnesium [NexIUM] 40 mg PO DAILY Umeclidinium Brm/Vilanterol Tr [Anoro Ellipta 62.5-25 Mcg INH] 1 puff INHALATION RT-DAILY Atorvastatin [Lipitor] 80 mg PO HS #90 tab Levothyroxine Sodium [Synthroid] 25 mcg PO MOLINA Pantoprazole [Protonix] 40 mg PO DAILY Nitroglycerin Sl Tabs [Nitrostat] 0.4 mg SUBLINGUAL Q5M PRN PRN Reason: CHEST PAIN Ergocalciferol (Vitamin D2) [isdol (50,000 Iu)] 1,250 mcg PO MO Isosorbide Mononitrate ER [Imdur] 30 mg PO BID Ondansetron Odt [Zofran ODT] 4 mg PO Q8HR PRN PRN Reason: Nausea Discontinued Aspirin EC [Ecotrin Low Dose] 81 mg PO DAILY amLODIPine [Norvasc] 5 mg PO DAILY Sennosides [Senokot] 8.6 mg PO DAILY tab Apixaban [Eliquis] 5 mg PO BID Sodium Chloride Tab 1 gm PO DAILY 30 Days #30 tab Discharge Medication List oxyCODONE HCL/ACETAMINOPHEN [Percocet 10-325 mg] 1 tab PO Q6H PRN 07/16/17 [History] Dicyclomine [Bentyl] 10 mg PO DAILY 01/31/20 [History] Levothyroxine Sodium [Synthroid] 50 mcg PO MOTUWETHFRSA 06/17/21 [History] Naloxone HCl [Narcan] 4 mg NASAL ONCE PRN 06/17/21 [History] Nitroglycerin Sl Tabs [Nitrostat] 0.4 mg SUBLINGUAL Q5M PRN 06/17/21 [History] SUMAtriptan succinate [Imitrex] 50 mg PO BID PRN 07/08/21 [History] Ergocalciferol (Vitamin D2) [Drisdol (50,000 Iu)] 1,250 mcg PO MO 03/20/22 [History] Esomeprazole Magnesium [NexIUM] 40 mg PO DAILY 03/20/22 [History] Umeclidinium Brm/Vilanterol Tr [Anoro Ellipta 62.5-25 Mcg INH] 1 puff INHALATION RT-DAILY 03/20/22 [History] Atorvastatin [Lipitor] 80 mg PO HS #90 tab 03/21/22 [Rx] Isosorbide Mononitrate ER [Imdur] 30 mg PO BID 09/08/22 [History] Levothyroxine Sodium [Synthroid] 25 mcg PO MOLINA 09/08/22 [History] Ondansetron Odt [Zofran ODT] 4 mg PO Q8HR PRN 09/08/22 [History] Pantoprazole [Protonix] 40 mg PO DAILY 09/08/22 [History] Acetaminophen Tab [Tylenol] 650 mg PO Q6HR PRN tab 10/28/22 [Rx] Heparin Sodium,Porcine [Heparin Sodium] 5,000 unit SQ Q12HR 30 Days #60 each 09/19/22 [Rx] Ipratropium-Albuterol Nebulize [Duoneb 0.5 mg-3 mg/3 ml Soln] 3 ml INHALATION RT-Q2H PRN each 09/19/22 [Rx] Ipratropium-Albuterol Nebulize [Duoneb 0.5 mg-3 mg/3 ml Soln] 3 ml INHALATION RT-QID each 09/19/22 [Rx] Loperamide [Imodium] 2 mg PO QID PRN cap 09/19/22 [Rx] Magnesium Oxide 400 mg PO BID 30 Days #60 tablet 09/19/22 [Rx] Multivitamins, Thera [Multivitamin (formulary)] 1 each PO DAILY@1200 tab 09/19/22 [Rx] Potassium Chloride ER [K-Dur 20] 20 meq PO DAILY #30 tab 09/19/22 [Rx] QUEtiapine [SEROquel] 12.5 mg PO HS tab 09/19/22 [Rx] Sodium Bicarbonate Tab 1,300 mg PO BID tab 09/19/22 [Rx] Sodium Chloride Tab 1 gm PO BID tab 09/19/22 [Rx] carvediloL [Coreg] 6.25 mg PO BID-W/MEALS tab 09/19/22 [Rx] lisinopriL [Zestril] 2.5 mg PO DAILY tab 09/19/22 [Rx] Follow up Appointment(s)/Referral(s): Mario June DO [Primary Care Provider] - 1-2 days Chon Mims DO [STAFF PHYSICIAN] - 1 Week Loi August MD [STAFF PHYSICIAN] - 1 Week Activity/Diet/Wound Care/Special Instructions: Patient is going to [facility] inpatient rehab Activity as tolerated Continue current diet Continue medications as prescribed Patient being followed by nephrology and will have nephrology consult placed at [facility] Patient will need urology follow-up eliquis currently on hold and will continue with subcutaneous heparin Recommend repeat BMP in one day to monitor electrolytes and kidney functions Discharge Disposition: TRANSFER TO SNF/ECF
[2022-09-19] MEDS ORDERED: TOLVAPTAN 15 MG 1/2 TABLET PO ONE (16:32)
[2022-09-19] MEDS: HEPARIN SODIUM,PORCINE/PF 5,000 UNIT/0.5 ML SYRINGE SQ SCH (20:04)
[2022-09-19] MEDS: ATORVASTATIN 80 MG TAB PO SCH (20:05)
[2022-09-19] MEDS: QUEtiapine 25 MG TAB PO SCH (20:05)
[2022-09-20] MEDS: oxyCODONE-APAP 10-325MG 1 EACH TAB PO PRN (01:14)
[2022-09-20] MEDS: carvediloL 6.25 MG TAB PO SCH (06:18)
[2022-09-20] MEDS: LEVOTHYROXINE 50 MCG TAB PO SCH (06:18)
[2022-09-20] MEDS: MULTIVITAMINS, THERA 1 EACH TAB PO SCH (08:15)
[2022-09-20] MEDS: HEPARIN SODIUM,PORCINE/PF 5,000 UNIT/0.5 ML SYRINGE SQ SCH (08:15)
[2022-09-20] MEDS: PANTOPRAZOLE 40 MG/10 ML VIAL IV SCH (08:16)
[2022-09-20] MEDS: SODIUM CHLORIDE TAB 1 GM TAB PO SCH (08:16)
[2022-09-20] MEDS: SENNOSIDES 8.6 MG TAB PO SCH (08:16)
[2022-09-20] MEDS: SODIUM BICARBONATE TAB 650 MG TAB PO SCH (08:16)
[2022-09-20] MEDS: ISOSORBIDE MONONITRATE ER 30 MG TAB.ER.24H PO SCH (08:16)
[2022-09-20] MEDS: IPRATROPIUM-ALBUTEROL 3 ML NEB INHALATION SCH ×2 (08:25→11:47)
[2022-09-20] MEDS: FORMOTEROL FUMARATE 20 MCG/2 ML NEBU INHALATION SCH (08:25)
[2022-09-20 09:40] LABS: Basophils % (A) 0 %; Eosinophils # (A) 0.1 k/uL (0-0.7); Eosinophils % (A) 1 %; HCT 32.7 % (39.0-53.0); Lymphocytes # (A) 0.6 k/uL (1.0-4.8); Lymphocytes % (A) 5 %; MCHC 33.6 g/dL (31.0-37.0); MCV 98.3 fL (80.0-100.0); Mean Platelet Volume 8.1; Monocytes # (A) 0.7 k/uL (0-1.0); Monocytes % (A) 6 %; Neutrophils # (A) 9.9 k/uL (1.3-7.7); Neutrophils % (A) 87 %; Platelet Count 288 k/uL (150-450); RBC 3.33 m/uL (4.30-5.90); RDW 13.1 % (11.5-15.5); WBC 11.4 k/uL (3.8-10.6)
[2022-09-20 10:09] LABS: Calcium 8.3 mg/dL (8.4-10.2); Magnesium 1.4 mg/dL (1.6-2.3); Potassium 3.4 mmol/L (3.5-5.1)
[2022-09-20] MEDS ORDERED: POTASSIUM CHLORIDE ER 20 MEQ TAB.ER PO STA (10:29)
[2022-09-20] MEDS ORDERED: MAGNESIUM SULFATE-D5W PMX 1 GM in DEXTROSE/WATER 1 100ML.BAG IVPB SCH (10:30)
--- NOTE | 2022-09-20 10:37 | P.PN ---
Subjective Patient is seen for follow-up for hyponatremia. Serum sodium at 132 today Plans for possible discharge. Objective - Vital Signs Vital signs: Vital Signs Temp 98.2 F 09/20/22 03:24 Pulse 77 09/20/22 03:24 Resp 19 09/20/22 03:24 BP 142/77 09/20/22 03:24 Pulse Ox 98 09/20/22 03:24 FiO2 Intake & Output 09/19/22 09/20/22 09/20/22 18:59 06:59 18:59 Intake Total 458 Output Total 100 450 Balance 358 -450 Weight 52.254 kg Intake: Oral 458 Output: Urine 100 450 Other: Voiding Method Urinal Toilet # Voids 1 # Bowel Movements 2 - Exam Patient is awake, comfortable, not in any acute distress Examination of the heart S1 and S2 Examination of the lungs bilateral breath sounds are heard Abdomen is soft nontender Examination of the lower extremities shows no significant edema MOULDER OPERATOR exam grossly intact - Labs CBC & Chem 7: 09/20/22 09:06 09/20/22 09:06 Labs: Abnormal Lab Results - Last 24 Hours (Table) 09/19/22 09/20/22 09/20/22 Range/Units 11:19 09:06 09:06 WBC 11.4 H (3.8-10.6) k/uL RBC 3.33 L (4.30-5.90) m/uL Hgb 11.0 L (13.0-17.5) gm/dL Hct 32.7 L (39.0-53.0) % Neutrophils # 9.9 H (1.3-7.7) k/uL Lymphocytes # 0.6 L (1.0-4.8) k/uL Sodium 129 L 132 L (137-145) mmol/L Potassium 3.4 L (3.5-5.1) mmol/L Calcium 7.7 L 8.3 L (8.4-10.2) mg/dL Magnesium 1.5 L 1.4 L (1.6-2.3) mg/dL Assessment and Plan Assessment: 1. Hyponatremia , euvolemic Urine osmolality is 327. Patient is status post Samsca. Currently maintained on sodium chloride tabs 2. Hypokalemia status post replacement 3. History of hypothyroidism 4. Proteinuria rule out underlying chronic kidney disease. Serum creatinine seems to be around 1 mg/dL. No history of diabetes. All serologies are negative. Will need follow-up as outpatient. Plan: Follow-up as outpatient for proteinuria and hyponatremia. Maintain good oral protein intake Continue with sodium chloride tabs for now.
[2022-09-20] MEDS ORDERED: MAGNESIUM OXIDE 400 MG TAB PO SCH (11:00)
[2022-09-20] MEDS ORDERED: POTASSIUM CHLORIDE ER 20 MEQ TAB.ER PO ONE (12:30)
[2022-09-20 13:25] VITALS: BP 159/84; PULSE 59; RESP 16; TEMP 98.4
--- NOTE | 2022-09-20 15:47 | P.DS ---
Providers Date of admission: 09/08/22 13:09 Attending physician: Kahlil Rodriguez MD Consults: 09/08/22 13:08 Consult Physician Routine Consulting Provider: Dena Garcia Consult Reason/Comments: Intractable vomiting Do you want consulting provider notified?: Yes Consult Physician Routine Consulting Provider: Vickie Gil Consult Reason/Comments: Hyponatremia Do you want consulting provider notified?: Yes 09/10/22 12:48 Consult Physician Routine Consulting Provider: Nawaf Bartholomew Consult Reason/Comments: eval for ipr Do you want consulting provider notified?: Yes 09/18/22 14:00 Consult Physician Routine Consulting Provider: Loi August Consult Reason/Comments: hematuria Do you want consulting provider notified?: Yes, Notify in am Primary care physician: Mario June [facility] Course: Final diagnosis Abdominal pain and vomiting, possible acute gastritis, improved Severe hypokalemia, improved Hyponatremia from poor solute intake acute kidney injury likely due to lisinopril and poor oral intake with acute tubular necrosis, improving 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 Urology consulted as there are some bladder calculus noted on ultrasound Hypertension Hyperlipidemia Continued alcohol abuse Acute alcohol withdrawal with delirium tremens, resolved GI prophylaxis DVT prophylaxis Full code Discharge disposition Patient is being discharged in a stable condition with guarded prognosis. Initial plan was for [facility] inpatient rehab however unable to obtain insurance authorization today. Patient became frustrated and wanted to discharge. This was communicated with his daughter and patients daughter came to pick patient up to return home. Our case work aide did follow up with the patient and homecare services were denied by family. Patient will be staying at his daughter Evelyn's house and this was relayed to care team by Evelyn. Patient will follow-up with Dr. uJne in the outpatient setting upon discharge. Patient is to continue with close outpatient follow-up with nephrology as well as urology. Total time taken is greater than 35 minutes. Hospital course This is a 77-year-old male who was recently admitted with abdominal pain possible gastritis along with nausea vomiting and multiple electrolyte abnormalities and being closely monitored. Patient was evaluated by GI and underwent upper EGD endoscopy showing antral gastritis with no active bleeding and biopsies were obtained. Patient was also placed on CIWA protocol initially and requiring Ativan. Patient not actively withdrawing at this time. Patient was extremely lethargic minimally arousable becoming agitated and extremely weak and had been refusing to eat. Patient was evaluated by nephrology and followed closely for his low sodium that jumped extremely aggressively fast up with a few doses of Samsca and had been placed on D5 water for correction. Patient continued to have multiple electrolytes abnormalities including low potassium and low magnesium that were replaced per protocol. Recommend daily supplementation of these electrolytes. Patient was also placed on a dysphagia diet due to his mentation and confusion although is much more awake and alert and will advance to dysphagia chopped diet and recommend continue with aspiration precautions. Patient is currently maintained on sodium chloride tabs along with sodium bicarb tabs and will be followed with nephrology in the outpatient setting. Repeat urinalysis was ordered. Patient is noted to have hematuria after Saunders catheter discontinuation an ultrasound was noted to have some renal calculi and urology was consulted. Patient will eventually need a kidney biopsy in the outpatient setting. Patient with significant weakness up until 2 days ago and mentation significantly improved along with his weakness and is up working with physical therapy. Patient adamantly wants to go home although continues with some confusion and is agreeable to 2 days at rehab. Currently awaiting insurance authorization. Currently no reports of chest pain, shortness of breath, or palpitations. Patient is afebrile. No reports of nausea or vomiting and patient is tolerating diet. Poor oral intake continues. 09/20/2022 Patient has been ambulating around the room mostly independent. He has refused to wait for insurance authorization for inpatient rehab which is pending at this time. He is evaluated today resting in bed. No acute events overnight. He is alert x 3 and has been appropriate. Spoke with the daughter over the phone and patient will be staying at her house. She will be getting him a shower chair. Discussed needing to see primary care and also scheduled follow up appointments with consultations. Discussed to repeat labs CBC, BMP, magnesium thursday and daughter verbalizes understanding. His lungs are clear today, S1 S2 auscultated, abdomen soft and nontender. No acute events overnight. Labs today showing sodium 132, potassium 3.4, magnesium 1.4. He did receive oral electrolyte replacement. White count 11.4, hemoglobin 11.0. Patient is afebrile, heart rate 77, blood pressure 142/77, 98% room air. Discharged home with family. Physical exam: Gen: This is a 77-year-old male, thin built, awake, alert and oriented 3 today. HEENT: Head is atraumatic, normocephalic. Pupils equal, round. Sclerae is anicteric. NECK: Supple. No JVD. No lymphadenopathy. No thyromegaly. LUNGS: Clear to auscultation. No wheezes or rhonchi. No intercostal retractions. HEART: Regular rate and rhythm. No murmur. ABDOMEN: Soft. Bowel sounds are present. No masses. No tenderness. EXTREMITIES: No pedal edema. No calf tenderness. NEUROLOGICAL: Patient is awake, alert and oriented x3. Cranial nerves 2 through 12 are grossly intact. Diffusely weak although he has continued to progress and ambulating independently around room. Please refer to medication reconciliation sheet for a list of medications. Thank you for allowing us to participate in the care of this patient. The impression and plan of care has been dictated by Shreya More, Nurse Practitioner as directed. Dr. Nash MD I have performed a history and physical examination and medical decision making of this patient, discussed the same with the dictator, and agree with the dictators assessment and plan as written, documented as a scribe. Based on total visit time, I have performed more than 50% of this visit. Patient Condition at Discharge: Fair Plan - Discharge Summary Discharge Rx Participant: No New Discharge Prescriptions: New carvediloL [Coreg] 6.25 mg PO BID-W/MEALS tab Ipratropium-Albuterol Nebulize [Duoneb 0.5 mg-3 mg/3 ml Soln] 3 ml INHALATION RT-QID each Loperamide [Imodium] 2 mg PO QID PRN cap PRN Reason: Diarrhea Multivitamins, Thera [Multivitamin (formulary)] 1 each PO DAILY@1200 tab Sodium Bicarbonate Tab 1,300 mg PO BID tab Sodium Chloride Tab 1 gm PO BID tab lisinopriL [Zestril] 2.5 mg PO DAILY tab Magnesium Oxide 400 mg PO BID 30 Days #60 tablet Ipratropium-Albuterol Nebulize [Duoneb 0.5 mg-3 mg/3 ml Soln] 3 ml INHALATION RT-Q2H PRN each PRN Reason: Shortness Of Breath Or Wheezing Heparin Sodium,Porcine [Heparin Sodium] 5,000 unit SQ Q12HR 30 Days #60 each QUEtiapine [SEROquel] 12.5 mg PO HS tab Acetaminophen Tab [Tylenol] 650 mg PO Q6HR PRN tab PRN Reason: Fever And/ Or Pain Continue oxyCODONE HCL/ACETAMINOPHEN [Percocet 10-325 mg] 1 tab PO Q6H PRN PRN Reason: Pain Dicyclomine [Bentyl] 10 mg PO DAILY Levothyroxine Sodium [Synthroid] 50 mcg PO MOTUWETHFRSA Naloxone HCl [Narcan] 4 mg NASAL ONCE PRN PRN Reason: OVERDOSE SUMAtriptan succinate [Imitrex] 50 mg PO BID PRN PRN Reason: Migraine Headache Esomeprazole Magnesium [NexIUM] 40 mg PO DAILY Umeclidinium Brm/Vilanterol Tr [Anoro Ellipta 62.5-25 Mcg INH] 1 puff INHALATION RT-DAILY Atorvastatin [Lipitor] 80 mg PO HS #90 tab Levothyroxine Sodium [Synthroid] 25 mcg PO MOLINA Pantoprazole [Protonix] 40 mg PO DAILY Nitroglycerin Sl Tabs [Nitrostat] 0.4 mg SUBLINGUAL Q5M PRN PRN Reason: CHEST PAIN Ergocalciferol (Vitamin D2) [Drisdol (50,000 Iu)] 1,250 mcg PO MO Isosorbide Mononitrate ER [Imdur] 30 mg PO BID Ondansetron Odt [Zofran ODT] 4 mg PO Q8HR PRN PRN Reason: Nausea Discontinued Aspirin EC [Ecotrin Low Dose] 81 mg PO DAILY amLODIPine [Norvasc] 5 mg PO DAILY Sennosides [Senokot] 8.6 mg PO DAILY tab Apixaban [Eliquis] 5 mg PO BID Sodium Chloride Tab 1 gm PO DAILY 30 Days #30 tab Discharge Medication List oxyCODONE HCL/ACETAMINOPHEN [Percocet 10-325 mg] 1 tab PO Q6H PRN 07/16/17 [History] Dicyclomine [Bentyl] 10 mg PO DAILY 01/31/20 [History] Levothyroxine Sodium [Synthroid] 50 mcg PO MOTUWETHFRSA 06/17/21 [History] Naloxone HCl [Narcan] 4 mg NASAL ONCE PRN 06/17/21 [History] Nitroglycerin Sl Tabs [Nitrostat] 0.4 mg SUBLINGUAL Q5M PRN 06/17/21 [History] SUMAtriptan succinate [Imitrex] 50 mg PO BID PRN 07/08/21 [History] Ergocalciferol (Vitamin D2) [Drisdol (50,000 Iu)] 1,250 mcg PO MO 03/20/22 [History] Esomeprazole Magnesium [NexIUM] 40 mg PO DAILY 03/20/22 [History] Umeclidinium Brm/Vilanterol Tr [Anoro Ellipta 62.5-25 Mcg INH] 1 puff INHALATION RT-DAILY 03/20/22 [History] Atorvastatin [Lipitor] 80 mg PO HS #90 tab 03/21/22 [Rx] Isosorbide Mononitrate ER [Imdur] 30 mg PO BID 09/08/22 [History] Levothyroxine Sodium [Synthroid] 25 mcg PO MOLINA 09/08/22 [History] Ondansetron Odt [Zofran ODT] 4 mg PO Q8HR PRN 09/08/22 [History] Pantoprazole [Protonix] 40 mg PO DAILY 09/08/22 [History] Acetaminophen Tab [Tylenol] 650 mg PO Q6HR PRN tab 09/19/22 [Rx] Heparin Sodium,Porcine [Heparin Sodium] 5,000 unit SQ Q12HR 30 Days #60 each 09/19/22 [Rx] Ipratropium-Albuterol Nebulize [Duoneb 0.5 mg-3 mg/3 ml Soln] 3 ml INHALATION RT-Q2H PRN each 09/19/22 [Rx] Ipratropium-Albuterol Nebulize [Duoneb 0.5 mg-3 mg/3 ml Soln] 3 ml INHALATION RT-QID each 09/19/22 [Rx] Loperamide [Imodium] 2 mg PO QID PRN cap 09/19/22 [Rx] Magnesium Oxide 400 mg PO BID 30 Days #60 tablet 09/19/22 [Rx] Multivitamins, Thera [Multivitamin (formulary)] 1 each PO DAILY@1200 tab 09/19/22 [Rx] QUEtiapine [SEROquel] 12.5 mg PO HS tab 09/19/22 [Rx] Sodium Bicarbonate Tab 1,300 mg PO BID tab 09/19/22 [Rx] Sodium Chloride Tab 1 gm PO BID tab 09/19/22 [Rx] carvediloL [Coreg] 6.25 mg PO BID-W/MEALS tab 09/19/22 [Rx] lisinopriL [Zestril] 2.5 mg PO DAILY tab 09/19/22 [Rx] Follow up Appointment(s)/Referral(s): Mario June DO [Primary Care Provider] - 1-2 days Chon Mims DO [STAFF PHYSICIAN] - 1 Week Loi August MD [STAFF PHYSICIAN] - 1 Week Patient Instructions/Handouts: Hyponatremia (DC), Hypokalemia (DC) Activity/Diet/Wound Care/Special Instructions: Activity as tolerated Continue current diet Continue medications as prescribed Patient will need urology follow-up arpan currently on hold Recommend repeat BMP in one day to monitor electrolytes and kidney functions Discharge Disposition: HOME SELF-CARE
== END 2022-09-20 12:36 | disposition left against medical advice (07) | DRG 391 ==
LOC: EC 09:53 → 3SCARD 13:09
PROVIDERS: ADMIT Internal Medicine; ATTEND Internal Medicine
PROC: 0DB78ZX Excision of Stomach, Pylorus, Via Natural or Artificial Opening Endoscopic, Diagnostic (ICD-10-PCS; principal; 2022-09-11 12:30)
DX: K29.70 Gastritis, unspecified, without bleeding (principal); G92.9 Unspecified toxic encephalopathy; N17.0 Acute kidney failure with tubular necrosis; F10.131 Alcohol abuse with withdrawal delirium; E87.20 Acidosis, unspecified; I67.82 Cerebral ischemia; T83.89XA Other specified complication of genitourinary prosthetic devices, implants and grafts, initial encounter; I69.354 Hemiplegia and hemiparesis following cerebral infarction affecting left non-dominant side; E87.1 Hypo-osmolality and hyponatremia; J98.11 Atelectasis; I11.9 Hypertensive heart disease without heart failure; E03.9 Hypothyroidism, unspecified; Z95.828 Presence of other vascular implants and grafts; E27.8 Other specified disorders of adrenal gland; I95.9 Hypotension, unspecified; I67.2 Cerebral atherosclerosis; K29.80 Duodenitis without bleeding; F11.90 Opioid use, unspecified, uncomplicated; N20.0 Calculus of kidney; K59.00 Constipation, unspecified; Z74.1 Need for assistance with personal care; E78.5 Hyperlipidemia, unspecified; F17.210 Nicotine dependence, cigarettes, uncomplicated; E87.6 Hypokalemia; Z53.29 Procedure and treatment not carried out because of patient's decision for other reasons; T46.4X5A Adverse effect of angiotensin-converting-enzyme inhibitors, initial encounter; E83.42 Hypomagnesemia; I25.10 Atherosclerotic heart disease of native coronary artery without angina pectoris; N21.0 Calculus in bladder; G89.4 Chronic pain syndrome; Y73.1 Therapeutic (nonsurgical) and rehabilitative gastroenterology and urology devices associated with adverse incidents; R80.9 Proteinuria, unspecified; K44.9 Diaphragmatic hernia without obstruction or gangrene; K57.30 Diverticulosis of large intestine without perforation or abscess without bleeding; R53.81 Other malaise; H91.90 Unspecified hearing loss, unspecified ear; R31.9 Hematuria, unspecified; N28.1 Cyst of kidney, acquired; Z79.899 Other long term (current) drug therapy; Z79.02 Long term (current) use of antithrombotics/antiplatelets; Z79.51 Long term (current) use of inhaled steroids; Z79.01 Long term (current) use of anticoagulants; Z79.82 Long term (current) use of aspirin; Z79.890 Hormone replacement therapy; Z88.1 Allergy status to other antibiotic agents; Z88.5 Allergy status to narcotic agent; I25.2 Old myocardial infarction; Z96.82 Presence of neurostimulator; Z86.79 Personal history of other diseases of the circulatory system
CPT/HCPCS: 36415; 43239; 70450; 71045; 74178; 76770; 80048; 80053; 81001; 81050; 82150; 82272; 82570; 83516; 83690; 83735; 83883; 83935; 84132; 84156; 84295; 84300; 84443; 85025; 85610; 85730; 86038; 86160; 86162; 86225; 86255; 86334; 86335; 86706; 86803; 87324; 87340; 88305; 94640; 94760; 96361; 96365; 96366; 96375; 99284

== ENCOUNTER → 2023-07-20 | Outpatient (CLI) | payer MEDICARE, OTHER ==
--- NOTE | 2023-07-20 11:36 | US ---
EXAMINATION TYPE: US kidneys/renal and bladder DATE OF EXAM: 07/20/2023 COMPARISON: CT 09/08/2022. CLINICAL INDICATION: Male, 78 years old with history of N18.9 CHRONIC KIDNEY DISEASE, UNSPECIFIED; CK D EXAM MEASUREMENTS: Right Kidney: 9.5 x 4.2 x 5.1 cm Left Kidney: 7.9 x 3.5 x 2.6 cm Right Kidney: Cystic area upper pole 2.8 x 1.9 x 2.8 cm which appears to have solid and cystic compon ent. Left Kidney: Cystic area upper pole 1.0 x 1.2 x .9 cm. Bladder: Anechoic Bilateral Jets seen: Right only which could be secondary to peristalsis on the left collecting syst em. There is no evidence for hydronephrosis at this point in time. No nephrolithiasis is seen. No omer s are identified. The urinary bladder is anechoic. Bilateral ureteral jets are seen. IMPRESSION: 1. No evidence for hydronephrosis. 2. Complex cyst seen bilaterally which were seen on CT scan 09/08/2022.
== END | disposition home or self-care (01) ==
LOC: RADUSWWP 10:04
PROVIDERS: ATTEND Internal Medicine
DX: N18.9 Chronic kidney disease, unspecified (principal); N28.1 Cyst of kidney, acquired
CPT/HCPCS: 76770

== ENCOUNTER 2023-12-29 12:19 | Day surgery (SDC) | payer MEDICARE, OTHER ==
[~2023-12-29 12:19] MED LIST changes: +CLINDAMYCIN 600 MG in SODIUM CHLORIDE 0.9% 250 ML IRRIGATION PRN; -SODIUM CHLORIDE 0.9% 1,000 ML in EMPTY BAG 1 BAG IV ONE
[2023-12-29] MEDS ORDERED: CLINDAMYCIN 900 MG in DEXTROSE 5% IN WATER 50 ML IVPB PRN (12:45)
[2023-12-29] MEDS ORDERED: CLINDAMYCIN 600 MG in SODIUM CHLORIDE 0.9% 250 ML IRRIGATION PRN (12:45)
[2023-12-29] MEDS ORDERED: SODIUM CHLORIDE 0.9% 1,000 ML IV SCH ×2 (12:45)
[2023-12-29] MEDS: SODIUM CHLORIDE 0.9% 1,000 ML IV SCH ×3 (12:50→17:12)
[2023-12-29 12:51] LABS: Basophils # (A) 0.1 k/uL (0-0.2); Basophils % (A) 1 %; Eosinophils # (A) 0.2 k/uL (0-0.7); Eosinophils % (A) 3 %; HCT 39.6 % (39.0-53.0); HGB 13.1 gm/dL (13.0-17.5); Lymphocytes # (A) 1.5 k/uL (1.0-4.8); Lymphocytes % (A) 18 %; MCH 32.9 pg (25.0-35.0); MCHC 33.1 g/dL (31.0-37.0); MCV 99.6 fL (80.0-100.0); Mean Platelet Volume 8.3; Monocytes # (A) 0.6 k/uL (0-1.0); Monocytes % (A) 7 %; Neutrophils # (A) 5.8 k/uL (1.3-7.7); Neutrophils % (A) 69 %; Platelet Count 240 k/uL (150-450); RBC 3.97 m/uL (4.30-5.90); RDW 13.2 % (11.5-15.5); WBC 8.4 k/uL (3.8-10.6)
[2023-12-29 13:00] LABS: African American GFR (CKD) 74 (>60 ml/min/1.73 sqM); Anion Gap 6 mmol/L; Blood Urea Nitrogen 20 mg/dL (9-20); Calcium 9.3 mg/dL (8.4-10.2); Carbon Dioxide 24 mmol/L (22-30); Chloride 105 mmol/L (98-107); Glucose 94 mg/dL (74-99); Non-African American GFR(CKD) 64 (>60 ml/min/1.73 sqM); Sodium 135 mmol/L (137-145)
[2023-12-29 13:12] LABS: Glucose,Whole Blood 91 mg/dL (70-110)
[2023-12-29] MEDS ORDERED: MIDAZOLAM 2 MG/2 ML VIAL ONE (13:14)
[2023-12-29] MEDS ORDERED: fentaNYL (PF) 50 MCG/ML 2 ML AMP ONE (13:14)
[2023-12-29] MEDS ORDERED: hydrALAZINE HCL 20 MG/ML 1 ML VIAL ONE (13:14)
[2023-12-29] MEDS ORDERED: KETAMINE HCL IN 0.9 % NACL 50 MG/5 ML SYRINGE ONE (13:14)
[2023-12-29] MEDS ORDERED: LIDOCAINE 1% INJ 10MG/ML (20 ML MDV) ONE (13:25)
[2023-12-29] MEDS: CLINDAMYCIN 900 MG in DEXTROSE 5% IN WATER 50 ML IVPB PRN (13:48)
[2023-12-29] MEDS: LIDOCAINE 1% INJ 10MG/ML (20 ML MDV) SQ ONE (14:22)
[2023-12-29 14:38] LABS: Glucose,Whole Blood 101 mg/dL (70-110)
[2023-12-29] MEDS: VANCOMYCIN 1,000 MG in SODIUM CHLORIDE 0.9% 250 ML IVPB PRN (14:43)
--- NOTE | 2023-12-29 15:29 | P.EPPROC ---
- EP Procedure Note Electrophysiology Procedure Note: Diagnosis Underlying severe bradycardia with AV node disease Status post biventricular pacemaker implantation with His bundle pacing Device at [facility] Final diagnosis Successful biventricular pacemaker generator change Details Patient was brought to the EP lab in a fasting state. Written informed consent was obtained prior to the procedure. The left pectoral area was prepped and draped as a protocol. IV antibiotics including IV vancomycin administered. Local anesthesia administered An incision was made directly over the generator and carried down to the level of the generator. The generator was explanted Partial capsulectomy performed Hemostasis assured Old generator explanted [place] biventricular pacemaker generator implanted Leads interrogated The chronic atrial lead threshold was 0.75 V at point 4 ms, P waves 2 mV and pacing impedance 450 ohms RV threshold 0.75 V at point 4 ms, R waves 4.6 mV impedance impedance 410 ohms LV threshold 1.75 V at 1 ms and pacing impedance of 300 ohms Device programmed to DDD 60-130 bpm paced AV delay of 150 ms with an LV RV offset of 80 ms Unipolar His bundle pacing thresholds better than bipolar thresholds Thresholds were 1.75 V at 1 ms in the unipolar mode and 2.25 V at 1 ms in the bipolar mode Therefore the unipolar settings for pacing the His bundle lead reprogrammed Output 2.5 V at 1 ms Patient tolerated procedure well without any acute complication
[2023-12-29] MEDS ORDERED: ONDANSETRON 4 MG/2 ML VIAL IVP PRN (15:57)
[2023-12-29] MEDS ORDERED: oxyCODONE-APAP 10-325MG 1 EACH TAB PO PRN (16:14)
--- NOTE | 2023-12-29 16:58 | XR ---
EXAMINATION TYPE: XR chest 1V portable DATE OF EXAM: 12/29/2023 HISTORY: Shortness of breath. COMPARISON: 09/15/2022 TECHNIQUE: Single view of the chest is submitted. FINDINGS: Demonstrated are scattered senescent parenchymal change. There is no evidence for focal infiltrate. The heart is stable. Hilar and mediastinal structures are within normal limits. Degenerative changes are seen of the dorsal spine. IMPRESSION: 1. Chronic changes without evidence for acute pulmonary disease.
[2023-12-29] MEDS: ACETAMINOPHEN IV (For NPO) 1,000 MG in EMPTY BAG 1 BAG IVPB ONE (17:00)
[2023-12-29] MEDS: ONDANSETRON 4 MG/2 ML VIAL ONE (17:12)
[2023-12-29] MEDS: LACTATED RINGERS 1,000 ML IV SCH (17:12)
[2023-12-29] MEDS: LEVOTHYROXINE 50 MCG TAB PO SCH (17:18)
[2023-12-29] MEDS: guaiFENesin SYRUP 100MG/5ML 200 MG/10 ML CUP PO PRN (18:06)
[2023-12-29] MEDS: carvediloL 6.25 MG TAB PO SCH (20:52)
[2023-12-29] MEDS: MAGNESIUM OXIDE 400 MG TAB PO SCH (20:52)
[2023-12-29] MEDS: DONEPEZIL 10 MG TAB PO SCH (20:52)
[2023-12-29] MEDS: METOPROLOL TARTRATE 50 MG TAB PO SCH (20:52)
[2023-12-30] MEDS: PANTOPRAZOLE 40 MG TABLET PO SCH (05:34)
[2023-12-30] MEDS: ACETAMINOPHEN TAB 325 MG TAB PO PRN (06:05)
[2023-12-30] MEDS: ISOSORBIDE MONONITRATE ER 30 MG TAB.ER.24H PO SCH (08:05)
[2023-12-30] MEDS: allopurinoL 100 MG TAB PO SCH (08:05)
[2023-12-30] MEDS: POTASSIUM CHLORIDE ER 10 MEQ TAB.ER.PRT PO SCH (08:05)
[2023-12-30] MEDS: FERROUS SULFATE 325 MG TAB PO SCH (08:05)
--- NOTE | 2023-12-30 08:05 | P.DS ---
Providers Attending physician: Rajesh Fink Primary care physician: [facility] Course: Patient is doing well. No chest discomfort dizziness or lightheadedness Minimal soakage in the dressing No hematoma On examination heart sounds are normal Breath sounds are clear Blood pressure is elevated today Patient is completely asymptomatic Impression Sick sinus syndrome and AV blessing disease Status post biventricular pacemaker with His bundle pacing Status post pacemaker generator change yesterday, device at [facility] COVID testing since he was exposed to COVID. His daughter has COVID Chest x-ray does not show any pneumonitis Plan Discharge home Follow-up with Dr. Sullivan for review of home medications Patient Condition at Discharge: Stable Plan - Discharge Summary Discharge Rx Participant: Yes New Discharge Prescriptions: Continue RX: oxyCODONE HCL/ACETAMINOPHEN [Percocet 10-325 mg] 1 tab PO Q8H PRN PRN Reason: Pain RX: Levothyroxine Sodium [Synthroid] 50 mcg PO MOTUWETHFRSA RX: Levothyroxine Sodium [Synthroid] 25 mcg PO MOLINA RX: Pantoprazole [Protonix] 40 mg PO DAILY RX: carvediloL [Coreg] 6.25 mg PO BID #60 tablet RX: amLODIPine [Norvasc] 5 mg PO DAILY RX: Metoprolol Tartrate [Lopressor] 50 mg PO BID RX: Apixaban [Eliquis] 5 mg PO BID RX: lisinopriL [Zestril] 5 mg PO DAILY RX: Ferrous Sulfate [Iron (65 MG Elemental)] 325 mg PO DAILY RX: Donepezil [Aricept] 10 mg PO HS RX: Potassium Chloride [Klor-Con M10] 10 meq PO DAILY RX: Ergocalciferol (Vitamin D2) [Drisdol (50,000 Iu)] 1,250 mcg PO MO RX: Isosorbide Mononitrate ER [Imdur] 30 mg PO QAM RX: Magnesium Oxide [Mag-Ox] 400 mg PO BID #60 tablet RX: allopurinoL [Zyloprim] 100 mg PO DAILY RX: Mirtazapine [Remeron] 30 mg PO DAILY Discharge Medication List RX: oxyCODONE HCL/ACETAMINOPHEN [Percocet 10-325 mg] 1 tab PO Q8H PRN 07/16/17 [History] RX: Levothyroxine Sodium [Synthroid] 50 mcg PO MOTUWETHFRSA 06/17/21 [History] RX: Ergocalciferol (Vitamin D2) [Drisdol (50,000 Iu)] 1,250 mcg PO MO 03/20/22 [History] RX: Isosorbide Mononitrate ER [Imdur] 30 mg PO QAM 09/08/22 [History] RX: Levothyroxine Sodium [Synthroid] 25 mcg PO MOLINA 09/08/22 [History] RX: Pantoprazole [Protonix] 40 mg PO DAILY 09/08/22 [History] RX: Magnesium Oxide [Mag-Ox] 400 mg PO BID #60 tablet 09/20/22 [Rx] RX: carvediloL [Coreg] 6.25 mg PO BID #60 tablet 09/20/22 [Rx] RX: Apixaban [Eliquis] 5 mg PO BID 12/28/23 [History] RX: Donepezil [Aricept] 10 mg PO HS 12/28/23 [History] RX: Ferrous Sulfate [Iron (65 MG Elemental)] 325 mg PO DAILY 12/28/23 [History] RX: Metoprolol Tartrate [Lopressor] 50 mg PO BID 12/28/23 [History] RX: Mirtazapine [Remeron] 30 mg PO DAILY 12/28/23 [History] RX: Potassium Chloride [Klor-Con M10] 10 meq PO DAILY 12/28/23 [History] RX: allopurinoL [Zyloprim] 100 mg PO DAILY 12/28/23 [History] RX: amLODIPine [Norvasc] 5 mg PO DAILY 12/28/23 [History] RX: lisinopriL [Zestril] 5 mg PO DAILY 12/28/23 [History] Follow up Appointment(s)/Referral(s): Josr Sullivan MD [STAFF PHYSICIAN] - 1 Week (Hold Eliquis today and tomorrow on the seventh Resume on 31 December) Activity/Diet/Wound Care/Special Instructions: PATIENT EDUCATION MATERIAL Instructions following a heart rhythm device implant. 1. Keep dressing DRY for 5 DAYS. You may cover the area with Saran or Cling Wrap, prior to a shower. 2. The dressing will be removed in the Device Clinic at [facility]. Absorbable sutures were used to close the wound. 3. Avoid raising the left arm above the shoulder level. 4 week restriction 4. Avoid arm movements, like backscratching, rubbing the head, or pulling on a cord. 4 weeks restriction 5. Gentle range of motion movements of the shoulder, closest to the incision should be performed to avoid a frozen shoulder. (Pendulum exercises of the shoulder) 6. The opposite arm may be used freely. 7. Avoid driving for 7 days. 8. Avoid activities such as golfing, swimming, weed whacking, lifting more than 10 pounds weight, bowling, gymnastics and weight training/lifting. (6 weeks restriction) 9. Activities such as wood chopping with an axe, pull-ups in the gymnasium, power lifting, arc-welding, being close to home induction cooktops will always be a problem. 10. Arm sling is only a reminder not to raise the arm above the head. You do not need to keep the arm completely immobilized. Your free to move the arm and use it and for normal activities. In case of any problems, please call [facility], [place], @ [phone], Attention: Device Clinic Device clinic follow-up in 5 days Follow-up with primary interventional tech in 2-3 months Discharge Disposition: HOME SELF-CARE
[2023-12-30] MEDS: lisinopriL 5 MG TAB PO SCH (08:06)
[2023-12-30] MEDS: MIRTAZAPINE 15 MG TAB PO SCH (08:06)
[2023-12-30] MEDS: amLODIPine 5 MG TAB PO SCH (08:06)
[2023-12-30 08:07] VITALS: BP 158/72; PULSE 58; RESP 16; TEMP 98.5
[2024-01-03] MEDS ORDERED: LEVOTHYROXINE 25 MCG TAB PO SCH (06:30)
[2024-01-04] MEDS ORDERED: ERGOCALCIFEROL 1,250 MCG (50,000 IU) CAPSULE PO SCH (09:00)
== END 2023-12-30 10:40 | disposition home or self-care (01) ==
LOC: CATHEP 12:19 → 6NMEDSUR 14:57 → CATHEP 12-30 10:40
PROVIDERS: ATTEND Internal Medicine Clinical Cardiac Electrophysiology
DX: I71.40 Abdominal aortic aneurysm, without rupture, unspecified (principal); I49.5 Sick sinus syndrome; I48.0 Paroxysmal atrial fibrillation; I10 Essential (primary) hypertension; E78.5 Hyperlipidemia, unspecified; Z79.899 Other long term (current) drug therapy; F17.210 Nicotine dependence, cigarettes, uncomplicated; Z79.01 Long term (current) use of anticoagulants
CPT/HCPCS: 33229; 80048; 85025; 87635; 71045; C2621; J3370; J2001; J0131; J0736

== ENCOUNTER 2024-03-15 15:02 | Emergency (ER) | payer MEDICARE, OTHER ==
--- NOTE | 2024-03-15 15:31 | XR ---
EXAMINATION TYPE: XR abdomen 1V DATE OF EXAM: 03/15/2024 COMPARISON: NONE HISTORY: Pain TECHNIQUE: Single supine KUB image of the abdomen is obtained FINDINGS: Note is made of aortoiliac stent graft as well as left renal stents. Small bowel demonstrates no evidence for dilatation or air fluid levels. Gas and fecal material is seen in non-distended colon. No convincing evidence for pneumoperitoneum. No unusual calcifications. The lung bases are clear. The osseous structures are intact. IMPRESSION: 1. Overall nonobstructive bowel gas pattern.
[2024-03-15 15:44] VITALS: BP 159/97; PULSE 81; RESP 18; TEMP 97.5
--- NOTE | 2024-03-15 16:36 | ED ---
Abdominal Pain HPI - General Chief Complaint: Abdominal Pain Stated Complaint: abd pain Time Seen by Provider: 03/15/24 15:20 Source: patient, RN notes reviewed Mode of arrival: ambulatory - History of Present Illness Initial Comments: Isabell no is a 78-year-old male who presents the emergency department chief complaint of abdominal pain. Patient states that he has been constipated over the last 3 days. Patient states that he has ongoing abdominal pain and is prescribed Zofran as needed for nausea which aided in his symptoms. He denies previous abdominal surgeries. - Related Data Home Medications Medication Instructions Recorded Confirmed oxyCODONE HCL/ACETAMINOPHEN 1 tab PO Q8H PRN 07/16/17 12/29/23 [Percocet 10-325 mg] Levothyroxine Sodium [Synthroid] 50 mcg PO MOTUWETHFRSA 06/17/21 12/29/23 Ergocalciferol (Vitamin D2) 1,250 mcg PO MO 03/20/22 12/29/23 [Drisdol (50,000 Iu)] Isosorbide Mononitrate ER [Imdur] 30 mg PO QAM 09/08/22 12/29/23 Levothyroxine Sodium [Synthroid] 25 mcg PO MOLINA 09/08/22 12/29/23 Pantoprazole [Protonix] 40 mg PO DAILY 09/08/22 12/29/23 Apixaban [Eliquis] 5 mg PO BID 12/28/23 12/29/23 Donepezil [Aricept] 10 mg PO HS 12/28/23 12/29/23 Ferrous Sulfate [Iron (65 MG 325 mg PO DAILY 12/28/23 12/29/23 Elemental)] Metoprolol Tartrate [Lopressor] 50 mg PO BID 12/28/23 12/29/23 Mirtazapine [Remeron] 30 mg PO DAILY 12/28/23 12/29/23 Potassium Chloride [Klor-Con M10] 10 meq PO DAILY 12/28/23 12/29/23 allopurinoL [Zyloprim] 100 mg PO DAILY 12/28/23 12/29/23 amLODIPine [Norvasc] 5 mg PO DAILY 12/28/23 12/29/23 lisinopriL [Zestril] 5 mg PO DAILY 12/28/23 12/29/23 Previous Rx's Medication Instructions Recorded Magnesium Oxide [Mag-Ox] 400 mg PO BID #60 tablet 09/20/22 carvediloL [Coreg] 6.25 mg PO BID #60 tablet 09/20/22 Allergies Allergy/AdvReac Type Severity Reaction Status Date / Time cefazolin Allergy Rash/Hives Verified 03/15/24 15:07 cefazolin sodium [From Ancef] Allergy Rash/Hives Verified 03/15/24 15:07 morphine AdvReac Nausea & Verified 03/15/24 15:07 Vomiting Review of Systems ROS Statement: Those systems with pertinent positive or pertinent negative responses have been documented in the HPI. ROS Other: All systems not noted in ROS Statement are negative. Past Medical History Past Medical History: Chest Pain / Angina, COPD, GERD/Reflux, Hyperlipidemia, Hypertension, Memory Impairment, Myocardial Infarction (MA), Osteoarthritis (OA), Renal Disease, Syncope, Thyroid Disorder Additional Past Medical History / Comment(s): MA X2 ("in my 30's), pain lower spine and legs, intermittent rectal bleeding, irregular heart beat, see Dr. Fink's H&P. Last Myocardial Infarction Date:: approx 40 yrs ago History of Any Multi-Drug Resistant Organisms: None Reported Past Surgical History: Back Surgery, Heart Catheterization, Hernia Repair, Orthopedic Surgery, Pacemaker, Tonsillectomy Additional Past Surgical History / Comment(s): LAMINECTOMY & PLACEMENT OF NEUROSTIMULATOR, repositioned them later removed, ana cataracts, Recent aortic aneurysm repair May 2022. Past Anesthesia/Blood Transfusion Reactions: No Reported Reaction, Motion Sickness Type of Cardiac Device: Permanent Pacemaker Device Placement Date:: October 2017 Past Psychological History: Anxiety, Depression Smoking Status: Current some day smoker - Past Family History Mother Family Medical History: Cancer Additional Family Medical History / Comment(s): cva with residual left leg weakness April 2020 Father Family Medical History: Cancer Brother(s) Family Medical History: Cancer General Exam - General Exam Comments Initial Comments: Visual Physical Exam Vital signs reviewed General: Well-appearing, nontoxic, no acute distress. Head: Normocephalic, atraumatic Eyes: PERRLA, EOMI ENT: Airway patent Chest: Nonlabored breathing Skin: No visual rash, normal skin tone Neuro: Alert and oriented 3 Musculoskeletal: No gross abnormalities Course Vital Signs 03/15/24 15:05 Temperature 97.5 F L Pulse Rate 81 Respiratory 18 Rate Blood Pressure 159/97 O2 Sat by Pulse 97 Oximetry Medical Decision Making - Medical Decision Making I completed the quick note portion of this chart signed Indira Groves PA-C Patient left without being seen from the waiting room AGAINST MEDICAL ADVICE. Disposition Clinical Impression: Left against medical advice Disposition: HOME SELF-CARE Condition: Good Is patient prescribed a controlled substance at d/c from ED?: No Referrals: aMrio June DO [Primary Care Provider] - 1-2 days Time of Disposition: 17:01
== END 2024-03-15 16:53 | disposition home or self-care (01) ==
LOC: EC 15:02
DX: R10.9 Unspecified abdominal pain (principal); F17.200 Nicotine dependence, unspecified, uncomplicated; Z88.1 Allergy status to other antibiotic agents; Z88.5 Allergy status to narcotic agent; Z95.0 Presence of cardiac pacemaker; Z53.29 Procedure and treatment not carried out because of patient's decision for other reasons
CPT/HCPCS: 74018; 99284

== ENCOUNTER → 2024-08-12 | Outpatient (CLI) | payer MEDICARE, OTHER ==
[2024-08-12 14:58] LABS: Creatinine,Urine Random 125.3 mg/dL; Protein/Creatinine Ratio,Urine 0.63
[2024-08-12 20:01] LABS: HCT 40.8 % (39.6-50.0); HGB 13.4 g/dL (13.0-17.0); MCH 33.4 pg (27.0-32.0); MCHC 32.8 g/dL (32.0-37.0); MCV 101.7 FL (80.0-97.0); Mean Platelet Volume 11.6 FL (9.5-12.2); NRBC Per 100 WBC 0 X 10*3/uL (0.00-0.01); Platelet Count 225 X 10*3/uL (140-440); RBC 4.01 X 10*6/uL (4.40-5.60); RDW 14.2 % (11.5-14.5); WBC 6.57 X 10*3/uL (4.50-10.00)
[2024-08-12 20:16] LABS: % Iron Saturation 31.15 (15.00-50.00); Albumin 4.1 g/dL (3.8-4.9); BUN/Creat Ratio 12.71 Ratio (12.00-20.00); Blood Urea Nitrogen 17.8 mg/dL (9.0-27.0); Calcium 9.6 mg/dL (8.7-10.3); Carbon Dioxide 23.3 mmol/L (21.6-31.8); Chloride 102 mmol/L (96-109); Glucose 79 mg/dL (70-110); Iron 95 UG/DL (65-175); Magnesium 1.8 mg/dL (1.5-2.4); Potassium 4.3 mmol/L (3.5-5.5); Sodium 137 mmol/L (135-145); Total Iron Binding Capacity 305 UG/DL (228-460); Total Protein 6.2 g/dL (6.2-8.2); Uric Acid 5.4 mg/dL (3.7-8.7)
[2024-08-12 20:17] LABS: ALT 10 U/L (10-49); AST 22 U/L (14-35); Albumin/Globulin Ratio 1.95 Ratio (1.60-3.17); Alkaline Phosphatase 68 U/L (41-126); Ferritin 78.8 ng/mL (22.0-322.0); Globulin 2.1 g/dL (1.6-3.3); Total Bilirubin 0.4 mg/dL (0.3-1.2)
== END | disposition home or self-care (01) ==
LOC: LABWHC1 12:58
PROVIDERS: ATTEND Nurse Practitioner Family
DX: E83.42 Hypomagnesemia (principal); N18.9 Chronic kidney disease, unspecified; E79.0 Hyperuricemia without signs of inflammatory arthritis and tophaceous disease
CPT/HCPCS: 36415; 80053; 82570; 82728; 83540; 83550; 83735; 84156; 84550; 85027

== ENCOUNTER → 2024-08-30 | Outpatient (CLI) | payer MEDICARE, OTHER ==
--- NOTE | 2024-08-30 19:27 | US ---
EXAMINATION TYPE: US kidneys/renal and bladder DATE OF EXAM: 08/30/2024 COMPARISON: Multiple, most recent = 07/20/2023 CLINICAL INDICATION: Male, 79 years old with history of N18.9 CKD; Patient denies any signs or sympto ms TECHNIQUE: Grayscale and color Doppler imaging of the bilateral kidneys and urinary bladder: FINDINGS: EXAM MEASUREMENTS: Right Kidney: 11.7 x 4.6 x 5.0 cm Left Kidney: 7.5 x 3.7 x 3.5 cm Post Void Residual Volume: 3 mL Right Kidney: Septated cysts within upper pole Left Kidney: Atrophic, simple cyst noted upper pole Bladder: wnl Bilateral Jets seen: Left not seen Normal Post Void Residual: Yes No hydronephrosis. No renal calculi. Complex septated cyst measuring 3.3 x 2.6 x 2.1 cm. Relatively s table when compared to prior exams. Within the upper pole of the right kidney. Simple cysts identifie d within the upper pole of the left kidney. Mild atrophy of the left kidney. No urinary bladder filli ng defect is identified. Right urogenital and visualized. Normal post void residual. IMPRESSION: 1. No hydronephrosis or renal calculi identified. 2. Stable right upper pole complex renal cyst. [facility], , 08/30/2024 7:24 PM
== END | disposition home or self-care (01) ==
LOC: RADUSWWP 14:54
PROVIDERS: ATTEND Internal Medicine Nephrology
DX: N18.9 Chronic kidney disease, unspecified
CPT/HCPCS: 76770

== ENCOUNTER → 2025-03-21 | Outpatient (CLI) | payer MEDICARE, OTHER ==
[2025-03-21 15:06] LABS: Basophils % (A) 1.4 %; Eosinophils % (A) 5.6 %; HCT 44.5 % (39.6-50.0); HGB 14.4 g/dL (13.0-17.0); Lymphocytes # (A) 2.16 X 10*3/uL (0.90-5.00); Lymphocytes % (A) 30.3 %; MCH 33.3 pg (27.0-32.0); MCHC 32.4 g/dL (32.0-37.0); MCV 102.8 FL (80.0-97.0); Monocytes # (A) 0.55 X 10*3/uL (0.20-1.00); Monocytes % (A) 7.7 %; NRBC Per 100 WBC 0 X 10*3/uL (0.00-0.01); Neutrophils % (A) 54.7 %; Platelet Count 283 X 10*3/uL (140-440); RBC 4.33 X 10*6/uL (4.40-5.60); RDW 14.1 % (11.5-14.5); WBC 7.13 X 10*3/uL (4.50-10.00)
[2025-03-21 15:36] LABS: % Iron Saturation 30.34 (15.00-50.00); ALT 9 U/L (10-49); AST 23 U/L (14-35); Albumin 4.1 g/dL (3.8-4.9); Albumin/Globulin Ratio 1.58 Ratio (1.60-3.17); Alkaline Phosphatase 90 U/L (41-126); BUN/Creat Ratio 13.07 Ratio (12.00-20.00); Blood Urea Nitrogen 19.6 mg/dL (9.0-27.0); Calcium 9.4 mg/dL (8.7-10.3); Carbon Dioxide 20.6 mmol/L (21.6-31.8); Chloride 113 mmol/L (96-109); Globulin 2.6 g/dL (1.6-3.3); Glucose 98 mg/dL (70-110); Iron 81 UG/DL (65-175); Phosphorus 3.4 mg/dL (2.4-5.1); Potassium 4.6 mmol/L (3.5-5.5); Sodium 149 mmol/L (135-145); Total Bilirubin 0.4 mg/dL (0.3-1.2); Total Iron Binding Capacity 267 UG/DL (228-460); Total Protein 6.7 g/dL (6.2-8.2)
[2025-03-21 16:27] LABS: Appearance,Urine Clear (Clear); Bilirubin,Urine Negative (Negative); Blood,Urine Negative (Negative); Color,Urine Yellow (Yellow); Ketones,Urine Negative (Negative); Nitrite,Urine Negative (Negative); Specific Gravity,Urine 1.027 (1.001-1.030)
== END | disposition home or self-care (01) ==
LOC: LABWHC1 11:42
PROVIDERS: ATTEND Nurse Practitioner Family
DX: N18.9 Chronic kidney disease, unspecified (principal)
CPT/HCPCS: 36415; 80053; 81003; 82043; 82306; 82570; 82728; 83540; 83550; 83735; 83970; 84100; 85025

== ENCOUNTER 2025-03-22 10:33 | Day surgery (SDC) | payer MEDICARE, OTHER ==
[2025-03-22 10:57] VITALS: TEMP 97.5
[2025-03-22] MEDS: LACTATED RINGERS 1,000 ML IV SCH (11:06)
[2025-03-22] MEDS: IV FLUID CONTINUATION 1,000 ML IV ONE (11:06)
[2025-03-22] MEDS ORDERED: PROPOFOL 10 MG/ML 20 ML VIAL IV ONE (11:40)
[2025-03-22] MEDS ORDERED: LIDOCAINE 1% INJ 10MG/ML (20 ML MDV) ONE (11:40)
--- NOTE | 2025-03-22 11:52 | P.PCN ---
Date of Procedure: 03/22/25 Procedure(s) Performed: BRIEF HISTORY: Patient is a 79-year-old, pleasant, white male scheduled for an upper endoscopy as above evaluation of GERD/intermittent dysphagia to solids and liquids for the last 1 year duration. PROCEDURE PERFORMED: Esophagogastroduodenoscopy with biopsy and dilation. PREOPERATIVE DIAGNOSIS: GERD/intermittent dysphagia to solids. IV sedation per anesthesia. PROCEDURE: After informed consent was obtained, the patient was brought into the endoscopy unit. IV sedation was administered by Anesthesia under continuous monitoring. Initially the Olympus GIF-140 video endoscope was inserted into the mouth. Esophagus intubated without any difficulty. It was gradually advanced into the stomach and duodenum and carefully examined. The bulb and the second part of the duodenum appeared normal. The scope at this time was withdrawn to the stomach, adequately insufflated with air, and upon careful examination, mucosa of the antrum, and mild gastritis and biopsies were done from this area. Mucosa of the body, cardia and the fundus appeared normal. The scope was then withdrawn into the esophagus. Small hiatal hernia noted. The GE junction was located at 39 cm from the incisors. It was a distal esophageal stricture identified and this was dilated using 15 and 16.5 mm TTS balloon for 30 seconds. There was brisk oozing identified with a small mucosal tear that subsequently stopped. The esophagus appeared normal. There were no erosions or ulcerations seen, biopsies were done from mid and distal esophagus to evaluate for eosinophilic esophagitis and the patient tolerated the procedure well. IMPRESSION: 1. Distal esophageal stricture status post balloon dilation using 15 and 16.5 mm TTS balloon. 2. Small hiatal hernia 3. Mild antral gastric. RECOMMENDATIONS: The findings of this examination were discussed with the patient as well as his family. He was advised to be on clear liquids for 2 hours. Follow-up with the biopsy results. Continue with Pepcid 20 mg twice daily and follow antireflux measure follow-up in the office in 2 to 3 weeks.
[2025-03-22 12:15] VITALS: BP 147/75; RESP 16
[2025-03-22 12:28] VITALS: PULSE 61
== END 2025-03-22 12:35 | disposition home or self-care (01) ==
LOC: ORWHC2ENDO 10:33
PROVIDERS: ATTEND Internal Medicine Gastroenterology
DX: K29.50 Unspecified chronic gastritis without bleeding (principal); K21.00 Gastro-esophageal reflux disease with esophagitis, without bleeding; K44.9 Diaphragmatic hernia without obstruction or gangrene; I25.10 Atherosclerotic heart disease of native coronary artery without angina pectoris; I25.2 Old myocardial infarction; I10 Essential (primary) hypertension; E78.5 Hyperlipidemia, unspecified; E07.9 Disorder of thyroid, unspecified; F17.210 Nicotine dependence, cigarettes, uncomplicated; Z86.73 Personal history of transient ischemic attack (TIA), and cerebral infarction without residual deficits; Z88.5 Allergy status to narcotic agent; Z88.1 Allergy status to other antibiotic agents; Z88.8 Allergy status to other drugs, medicaments and biological substances; Z79.890 Hormone replacement therapy; Z79.899 Other long term (current) drug therapy
CPT/HCPCS: 88305; 43239; 43249; J2003; J2704; 43244